=== PATIENT | female | born 1950 | race Caucasian/White ===

== ENCOUNTER → 2016-08-11 | Outpatient (CLI) | payer OTHER ==
[~2016-08-11] MED LIST: ACET-1256 PO; ASPI81TA28 PO; ATV5X PO; CALC-5 PO; CALC500C3 PO; CALCTAB5 PO; CHOL100010 PO; CHOLTAB9 PO; COEN100C15 PO; COEN1CAP46 PO; DIFL0.0519 OPR; ESTCR PV; FLUD0.1T10 PO; GADAVIST IV PRN; LAMO200T PO; LAMO200T38 PO; LEVO75TA5 PO; LORA-741 PO; MISCCAP80 PO; MYS50 PO; NUTR-706 PO; OXYC1TAB3 PO; PHEN15TA PO; PRIM50TA29 PO; PRIM50TA34 PO; RALO1TAB2 PO; RALO60TA12 PO; RANI150T2 PO; TIOT1SPR INH; TIOTCAP INH; ZNTT/150 PO; [UNRECOGNIZED DRUG - CODE] OR; [UNRECOGNIZED DRUG - CODE] PO
--- NOTE | 2016-08-11 15:36 | DIAGNOSTIC IMAGING REPORT ---
ABDOMINAL MRI WITH AND WITHOUT INTRAVENOUS CONTRAST HISTORY: Carcinoid tumor. Assess for pheochromocytoma. TECHNIQUE: Multiplanar multisequence MRI of the abdomen was performed both before and after the intravenous administration of contrast. COMPARISON STUDY: Abdomen and pelvis CT 10/01/2015. Chest abdomen and pelvis CTA 10/18/2013. Normal adrenal glands. No adrenal gland masses. The pancreas, spleen, kidneys, and gallbladder are unremarkable. No retroperitoneal lymphadenopathy. The visualized loops of bowel show no wall thickening or obstruction. No suspicious osseous lesions. The lung bases are clear. There are few scattered hepatic cysts with the largest in the right hepatic lobe measuring 13 mm. Within the central aspect of the liver adjacent to the IVC there is a 1.5 cm T2 hyperintense lesion. This appears to demonstrate discontinuous peripheral nodular enhancement and therefore likely represents a hemangioma. This is stable in size dating back to 2013 study and is therefore likely benign. FINDINGS: 1. Hepatic cysts, unchanged. 2. Stable 1.5 cm T2 hyperintense lesion within the central aspect of the liver which appears to demonstrate discontinuous peripheral nodular enhancement. Therefore, this is consistent with a hemangioma. 3. Normal adrenal glands. IMPRESSION: Electronically signed by: Cr Ruano M.D. 08/11/2016 3:34 PM Dictated Date/Time: 08/11/2016 3:22 PM
== END | disposition home or self-care (01) ==
LOC: C.MRIBC 13:47
PROVIDERS: ATTEND Internal Medicine
DX: D35.00 Benign neoplasm of unspecified adrenal gland (principal)

== ENCOUNTER → 2016-12-07 | Day surgery (SDC) | payer OTHER ==
[2016-11-11 10:51] VITALS: Ht 156.2 cm; Wt 61.8 kg
[~2016-12-07] VITALS: Ht 156.2 cm; Wt 61.8 kg
[~2016-12-07] MED LIST changes: +500ML BSS 0.3ML EPI 1:1000PF IRRIG ONE; +ACETAMINOPHEN 325 MG TAB PO PRN; +AMVISC PLUS 0.8ML SYRINGE INT OCU ONE; +ATROPINE SULFATE 0.1 MG/ML 5ML SYR IV PRN; +BSS FLUSH ONE; -CALCTAB5 PO; +EpINEphrine INJ 1MG/ML AMP 1 MG/ML AMP ONE; -FLUD0.1T10 PO; -GADAVIST IV PRN; +LACTATED RINGER'S 1000ML 500 ML IV SCH; +LIDOCAINE 3.5% OPH GEL PER APPLICATION CHARGE ONE; +LIDOCAINE HCL 1% MPF 2 ML VIAL ONE; +MIDAZOLAM HCL 1 MG/ML 2ML VIAL ONE; +OCUCOAT 1 ML SOLN IO ONE; +ONDANSETRON INJ 2 MG/ML 2 ML VIAL IV PRN; +POVIDONE-IODINE OP SOLN 30 ML BTL ONE; +PROPARACAINE 0.5% OP SOLN PER DROP CHARGE OPR SCH; -TIOTCAP INH; +TOBRAMYCIN/DEXAMETHASONE OPH OINT PER APPLN CHARGE ONE
[2016-12-07] MEDS: PHENYLEPHRINE HCL 2.5% OP SOLN PER DROP CHARGE OPR SCH ×2 (11:43→11:52)
--- NOTE | 2016-12-07 11:43 | History & Physical Bridge - SC ---
H&P Re-Evaluation Bridge Note: I have examined the patient, reviewed the History & Physical and in the interval since the performance of the History & Physical I have noted the following changes of clinical significance: No changes noted
[2016-12-07] MEDS: TROPICAMIDE 1% OP SOLN PER DROP CHARGE OPR SCH ×2 (11:44→11:53)
[2016-12-07] MEDS: CYCLOPENTOLATE HCL 1% OP SOLN PER DROP CHARGE OPR SCH ×2 (11:46→11:54)
[2016-12-07] MEDS: KETOROLAC 0.5% OP SOLN PER DROP CHARGE OPR SCH ×2 (11:48→11:55)
[2016-12-07] MEDS: GATIFLOXACIN OP SOLN PER DROP CHARGE OPR SCH ×2 (11:49→11:59)
--- NOTE | 2016-12-07 12:59 | Discharge Instructions-SurgCtr ---
Discharge Instructions Date of Service Dec 07, 2016. Visit Reason for Visit: Right Cataract Discharge Discharge Diagnosis / Problem: cataract Discharge Goals Goal(s): Improve function Activity Recommendations Activity Limitations: per Instructions/Follow-up section Anesthesia . Post Anesthesia Instructions: If you have had General Anesthesia or IV Sedation: * Do not drive today. * Resume driving when surgeon permits. * Do not make important decisions or sign legal documents today. * Call surgeon for: 1. Temperature elevations greater than 101 degrees F. 2. Uncontrollable pain. 3. Excessive bleeding. 4. Persistent nausea and vomiting. 5. Medication intolerance (nausea, vomiting or rash). * For nausea and vomiting use only clear liquids such as: tea, soda, bouillon until nausea subsides, then gradually increase diet as tolerated. * If you have any concerns or questions, call your surgeon's office. If physician is unavailable and it is an emergency, call 911 or go to the nearest emergency room. . Instructions / Follow-Up Instructions / Follow-Up ACTIVITY RECOMMENDATIONS: * No strenuous lifting, jogging or running for 4 days * No swimming or yard work for 1 week. * Limited bending is permitted, such as putting on shoes. RETURN TO SCHOOL/WORK: No work until seen by physician in office. MEDICATIONS: Resume previous medications unless instructed otherwise by your surgeon. This includes eye drops for glaucoma. Zymaxid/Gatifloxacin (heck cap) - one drop every 2 hours until bedtime Nevanac/Ilevro/Prolensa/Ketorolac (london cap) - one drop every 4 hours until bedtime Prednisolone/Durezol (white/pink cap, SHAKE WELL) - one drop every 2 hours until bedtime Starting tomorrow - all 3 drops every 4 hours until seen in the office Optive drops - as needed for discomfort SPECIAL CARE INSTRUCTIONS: * Wear eyeshield when sleeping, for four nights. * You may wear your own glasses or sunglasses while awake. * You may read or watch TV * You may shower and wash your face, but be gentle around the eye and pat dry. * Blurry vision and mild irritation are normal. * Call office if pain is more severe or vision becomes dark at . FOLLOW UP VISIT: Follow-up with Dr Wetzel tomorrow. Diet Recommendations Home Diet: resume previous diet Procedures Procedures Performed: Right Cataract Phacoemulsification With Intraocular Lens Implant Pending Studies Studies pending at discharge: no Medical Emergencies . Who to Call and When: Medical Emergencies: If at any time you feel your situation is an emergency, please call 911 immediately. . Non-Emergent Contact Non-Emergency issues call your: Wood Scaler . . "Provider Documentation" section prepared by Napoleon Wetzel. .
--- NOTE | 2016-12-07 12:59 | [facility] Operative Report ---
Operative Report Date of Service Dec 07, 2016. Operative Report 1. PREOPERATIVE DIAGNOSIS: Cataract of the right eye. 2. POSTOPERATIVE DIAGNOSIS: Same. 3. PROCEDURE: Phacoemulsification with intraocular lens implantation of the right eye. SURGEON: Dr. Napoleon Wetzel. ANESTHESIA: Topical Lidocaine gel, 1% Non- Preserved intracameral Lidocaine, and monitored intravenous sedation. INDICATIONS FOR THE PROCEDURE: The patient is a 66 - year-old female with a history of cataract of the right eye causing significant visual impairment. The details of the proposed procedure were explained to the patient who asked appropriate questions and following discussion of all risks, benefits and alternatives agreed to have the procedure done. 4. OPERATION AND FINDINGS: DESCRIPTION OF PROCEDURE: After informed consent was obtained, the patient was brought to the Operating Room at the [facility]. The patient was placed in a supine position and then the right eye was prepped and draped in the usual sterile fashion for intraocular surgery. A drop of topical Lidocaine gel was placed in the operative eye. A wire lid speculum was then placed in the fornices. A corneal paracentesis was then created temporally. The Non-Preserved Lidocaine was then instilled into the anterior chamber. The anterior chamber was then pressurized with viscoelastic. A 2.0 mm clear corneal incision was then created temporally. A cystotome was inserted into the anterior chamber and used to create a tear in the anterior lens capsule. This capsular tear was then used to create a small flap and the flap was dragged in a counterclockwise direction in order to create a continuous curvilinear capsulorrhexis. Hydrodissection was accomplished with balanced salt solution. Phacoemulsification of the lens nucleus was then performed in a standard [id number] technique. The phaco time was 19 seconds with an average power of 12 %. The remaining cortical material was removed using irrigation aspiration. The capsular bag was then filled with viscoelastic. A [employer]ch [employer] Lomb MI60L +21.5 diopters lens was then loaded into the injector and injected into the capsular bag. The remaining viscoelastic was removed with the irrigation aspiration handpiece. The wound was hydrated and then checked and found to be watertight. The intraocular pressure was checked and found to be adequate. The wire lid speculum was removed and the patient's face was cleaned and dried. TobraDex ointment was placed in the inferior fornix. The patient was discharged to the Recovery Room having tolerated the procedure well. There were no complications. The patient will be seen tomorrow in the office for follow-up. I attest to the content of the Intraoperative Record and any orders documented therein. Any exceptions are noted below.
[2016-12-07 13:00] VITALS: TEMP 37.2
--- NOTE | 2016-12-07 13:08 | Anesthesia Progress Nt - [facility] ---
Anesthesia Post Op Note Date & Time Dec 07, 2016 at 13:08 Vital Signs Pain Intensity: 0 Vital Signs Past 12 Hours Date Time Temp Pulse Resp B/P (MAP) Pulse Ox O2 Delivery O2 Flow Rate FiO2 12/07/16 11:08 36.9 74 20 94/65 (75) 99 Room Air Notes Mental Status: alert / awake / arousable, participated in evaluation Pt Amnestic to Procedure: Yes Nausea / Vomiting: adequately controlled Pain: adequately controlled Airway Patency, RR, SpO2: stable & adequate BP & HR: stable & adequate Hydration State: stable & adequate Anesthetic Complications: no major complications apparent
[2016-12-07 13:25] VITALS: BP 117/74; PULSE 62; O2SAT 96
== END | disposition home or self-care (01) ==
LOC: X.SURG 10:30
PROVIDERS: ATTEND Ophthalmology
DX: H26.9 Unspecified cataract (principal); G25.0 Essential tremor; E03.4 Atrophy of thyroid (acquired); J43.9 Emphysema, unspecified; E55.9 Vitamin D deficiency, unspecified; F17.200 Nicotine dependence, unspecified, uncomplicated; F32.89 Other specified depressive episodes; K21.9 Gastro-esophageal reflux disease without esophagitis; K22.4 Dyskinesia of esophagus; E27.40 Unspecified adrenocortical insufficiency; I77.810 Thoracic aortic ectasia; Z79.82 Long term (current) use of aspirin; Z79.899 Other long term (current) drug therapy

== ENCOUNTER 2017-01-20 19:43 | Emergency (ER) | payer OTHER ==
[~2017-01-20] VITALS: Ht 154.9 cm; Wt 61.9 kg
[~2017-01-20 19:43] MED LIST changes: -500ML BSS 0.3ML EPI 1:1000PF IRRIG ONE; -ACET-1256 PO; -ACETAMINOPHEN 325 MG TAB PO PRN; -AMVISC PLUS 0.8ML SYRINGE INT OCU ONE; -ASPI81TA28 PO; -ATROPINE SULFATE 0.1 MG/ML 5ML SYR IV PRN; -ATV5X PO; -BSS FLUSH ONE; -CALC500C3 PO; -CHOLTAB9 PO; -COEN100C15 PO; -DIFL0.0519 OPR; -EpINEphrine INJ 1MG/ML AMP 1 MG/ML AMP ONE; -LACTATED RINGER'S 1000ML 500 ML IV SCH; -LAMO200T38 PO; -LEVO75TA5 PO; -LIDOCAINE 3.5% OPH GEL PER APPLICATION CHARGE ONE; -LIDOCAINE HCL 1% MPF 2 ML VIAL ONE; -LORA-741 PO; -MIDAZOLAM HCL 1 MG/ML 2ML VIAL ONE; -MISCCAP80 PO; -MYS50 PO; -NUTR-706 PO; -OCUCOAT 1 ML SOLN IO ONE; -ONDANSETRON INJ 2 MG/ML 2 ML VIAL IV PRN; -OXYC1TAB3 PO; -POVIDONE-IODINE OP SOLN 30 ML BTL ONE; -PRIM50TA34 PO; -PROPARACAINE 0.5% OP SOLN PER DROP CHARGE OPR SCH; -RALO1TAB2 PO; -RANI150T2 PO; -TIOT1SPR INH; -TOBRAMYCIN/DEXAMETHASONE OPH OINT PER APPLN CHARGE ONE; -[UNRECOGNIZED DRUG - CODE] OR; -[UNRECOGNIZED DRUG - CODE] PO
[2017-01-20 19:50] VITALS: TEMP 36.9; Ht 154.9 cm; Wt 61.9 kg
--- NOTE | 2017-01-20 20:33 | DIAGNOSTIC IMAGING REPORT ---
CHEST 2 VIEWS ROUTINE HISTORY: 66 years-old Female acute back pain status post fall COMPARISON: Chest radiographs 10/09/2015 TECHNIQUE: Frontal and lateral views of the chest. FINDINGS: Cardiomediastinal and hilar silhouettes are within normal limits. Eventration of the right hemidiaphragm redemonstrated. There is no pneumothorax, pleural effusion or focal airspace consolidation. There is no overt pulmonary edema. Bones are mildly demineralized. There is mild convex right curvature of the midthoracic spine. Chronic fracture of the posterior lateral left ninth rib is again seen. No acute fracture identified. IMPRESSION: No acute cardiopulmonary process. The above report was generated using voice recognition software. It may contain grammatical, syntax or spelling errors. Electronically signed by: Dar Israel M.D. 01/20/2017 8:32 PM Dictated Date/Time: 01/20/2017 8:30 PM
--- NOTE | 2017-01-20 20:36 | DIAGNOSTIC IMAGING REPORT ---
L-SPINE MIN 4 VIEWS ROUTINE HISTORY: 66 years-old Female acute low back pain status post fall. COMPARISON: CT abdomen and pelvis 10/01/2015 TECHNIQUE: 5 radiographic views of the lumbar spine. FINDINGS: 5 nonrib-bearing lumbar type vertebral segments are present. The bones are mildly demineralized. No acute fracture or malalignment. Moderate posterior intervertebral disc space narrowing at L5-S1 is redemonstrated with moderate facet arthrosis. No significant intervertebral disc space narrowing is otherwise seen. No compression deformity. Moderate stool burden noted. There is atherosclerosis of the aorta. IMPRESSION: 1. No acute fracture or subluxation. 2. Moderate posterior intervertebral disc space narrowing at L5-S1 with moderate facet arthrosis. 3. Moderate stool burden. The above report was generated using voice recognition software. It may contain grammatical, syntax or spelling errors. Electronically signed by: Dar Israel M.D. 01/20/2017 8:34 PM Dictated Date/Time: 01/20/2017 8:32 PM
[2017-01-20] MEDS ORDERED: DIFL0.0519 OPR (20:41)
[2017-01-20] MEDS ORDERED: PHEN15TA PO (20:41)
--- NOTE | 2017-01-20 22:29 | EMERGENCY ROOM VISIT NOTE ---
History Report prepared by Scooby: Best Wilson Under the Supervision of: Dr. Griffin Gutierrez D.O. First contact with patient: 19:44 Stated Complaint: FALL History of Present Illness The patient is a 66 year old female who presents to the Emergency Room with complaints of right lower back pain that began GLASS SANDER BELT. The patient rates her pain moderate in severity. At this time, the patient tripped and fell onto her right side. She has a past medical history of osteoporosis and was told to go get checked if she were to ever fall. She denies any weakness, loss of consciousness , or head trauma. Source of History: patient Onset: GLASS SANDER BELT Position: back (lower) Symptom Intensity: moderate Quality: sharp Timing: constant Modifying Factors (Worsening): other (Touch) Associated Symptoms: No LOC, No headache Review of Systems See HPI for pertinent positives & negatives. A total of 10 systems reviewed and were otherwise negative. Past Medical & Surgical Medical Problems: (1) Bipolar 1 disorder (2) COPD (chronic obstructive pulmonary disease) (3) Dystonia (4) Head ache (5) History of left heart catheterization (LHC) (6) Hypothyroid (7) Major depressive disorder (8) Orthostatic hypotension (9) Osteoporosis (10) PTSD (post-traumatic stress disorder) (11) Tremor (12) UTI (urinary tract infection) (13) Wrist fracture, bilateral Surgical Problems: (1) H/O colonoscopy (2) H/O esophagogastroduodenoscopy (3) History of appendectomy (4) History of dilation and curettage (5) History of laparotomy (6) Tubal ligation status Family History Diabetes mellitus FH: heart disease Hypertension Social History Smoking Status: Former Smoker Alcohol Use: occasionally Drug Use: none Marital Status: single Housing Status: lives alone Occupation Status: unemployed Current/Historical Medications Scheduled Aspirin (Aspirin Ec), 81 MG PO QAM Cholecalciferol (D3-1000), 1,000 UNITS PO DAILY Coenzyme Q10 (Ubidecarenone) (Co Q10), 100 MG PO DAILY Difluprednate (Durezol), 1 DROP OPR DAILY Enteral Nutrition Formula (Ensure), 1 CAN PO TID Estradiol Vaginal (Estrace), 1 APPLN PV [id number] Lamotrigine (Lamictal), 200 MG PO HS Levothyroxine Sodium (Levothyroxine Sodium), 75 MCG PO QAM Phenelzine Sulfate (Phenelzine Sulfate), 30 MG PO QAM Phenelzine Sulfate (Phenelzine Sulfate), 15 MG PO Q AFTERNOON Primidone (Mysoline), 100 MG PO QAM & AFTERNOON Primidone (Mysoline), 150 MG PO HS Probiotic Product (Probiotic), 1 CAP PO BID Raloxifene Hcl (Evista), 60 MG PO HS@2200 Ranitidine (Zantac), 150 MG PO BID Sodium Fluoride (Dental) (Fluoridex), 1 DOSE OR QAM Tiotropium [place] (Spiriva Respimat), 2 PUFF INH DAILY Scheduled PRN Acetaminophen (Tylenol), 1,000 MG PO TID PRN for Pain Calcium Carbonate (Tums), 1 TAB PO DIRECTED PRN for Indigestion Lorazepam (Ativan), 0.5 MG PO QID PRN for Anxiety Allergies Coded Allergies: Cheese (Verified Allergy, Severe, "cva", 01/20/17) TYRAMINE REACTS WITH MEDS. Topiramate (Verified Allergy, Severe, BREATHING PROBLEM & EYE PROBLEMS., ) Tyramine (Verified Allergy, Severe, WAS BELIEVED IT CAUSED A STROKE, ) Adhesives (Verified Allergy, Mild, RASH, BLISTER, 01/20/17) Ephedrine (Verified Allergy, Mild, REACTS WITH ANOTHER MED, 01/20/17) Latex (Verified Allergy, Mild, RASH, BLISTER, 01/20/17) Epinephrine (Verified Adverse Reaction, Unknown, reacts to a med, 01/20/17) Physical Exam Vital Signs Date Time Temp Pulse Resp B/P (MAP) Pulse Ox O2 Delivery O2 Flow Rate FiO2 01/20/17 22:51 72 16 123/70 95 Room Air 01/20/17 21:50 87 20 137/91 96 Room Air 01/20/17 19:50 36.9 89 18 146/95 92 Room Air Physical Exam CONSTITUTIONAL/VITAL SIGNS: Reviewed / noted above. GENERAL: Non-toxic in appearance. INTEGUMENTARY: Warm, dry, and [place]. HEAD: Normocephalic. EYES: without scleral icterus or trauma. ENT/OROPHARYNX: clear and moist. LYMPHADENOPATHY/NECK: Is supple without lymphadenopathy or meningismus. RESPIRATORY: Lungs clear and equal. CARDIOVASCULAR: Regular rate and rhythm. GI/ABDOMEN: Soft and nontender. No organomegaly or pulsatile mass. No rebound or guarding. Normal bowel sounds. EXTREMITIES: Warm and well perfused. BACK: No CVA tenderness. Tenderness to palpation to the right lower back musculature. NEUROLOGICAL: Intact without focal deficits. PSYCHIATRIC: normal affect. MUSCULOSKELETAL: Normally developed with good muscle tone. Medical Decision & Procedures ER Provider Diagnostic Interpretation: Radiology results as stated below per my review and radiologist interpretation: L-SPINE MIN 4 VIEWS ROUTINE HISTORY: 66 years-old Female acute low back pain status post fall. COMPARISON: CT abdomen and pelvis 10/01/2015 TECHNIQUE: 5 radiographic views of the lumbar spine. FINDINGS: 5 nonrib-bearing lumbar type vertebral segments are present. The bones are mildly demineralized. No acute fracture or malalignment. Moderate posterior intervertebral disc space narrowing at L5-S1 is redemonstrated with moderate facet arthrosis. No significant intervertebral disc space narrowing is otherwise seen. No compression deformity. Moderate stool burden noted. There is atherosclerosis of the aorta. IMPRESSION: 1. No acute fracture or subluxation. 2. Moderate posterior intervertebral disc space narrowing at L5-S1 with moderate facet arthrosis. 3. Moderate stool burden. The above report was generated using voice recognition software. It may contain grammatical, syntax or spelling errors. Electronically signed by: Dar Israel M.D. 01/20/2017 8:34 PM Dictated Date/Time: 01/20/2017 8:32 PM CHEST 2 VIEWS ROUTINE HISTORY: 66 years-old Female acute back pain status post fall COMPARISON: Chest radiographs 10/09/2015 TECHNIQUE: Frontal and lateral views of the chest. FINDINGS: Cardiomediastinal and hilar silhouettes are within normal limits. Eventration of the right hemidiaphragm redemonstrated. There is no pneumothorax, pleural effusion or focal airspace consolidation. There is no overt pulmonary edema. Bones are mildly demineralized. There is mild convex right curvature of the midthoracic spine. Chronic fracture of the posterior lateral left ninth rib is again seen. No acute fracture identified. IMPRESSION: No acute cardiopulmonary process. The above report was generated using voice recognition software. It may contain grammatical, syntax or spelling errors. Electronically signed by: Dar Israel M.D. 01/20/2017 8:32 PM Dictated Date/Time: 01/20/2017 8:30 PM ED Course 1944: Previous medical records were reviewed. The patient was evaluated in room A10. A complete history and physical examination was performed. 2230: On reevaluation, the patient is resting. I discussed the results and findings with the patient. She verbalized agreement of the treatment plan. She was discharged home. Medical Decision Differentials include: Close head injury, intracranial bleed, facial trauma, cervical spine trauma, chest and thoracic trauma, abdominal and intra-abdominal trauma, spine neurologic trauma, and extremity trauma. This is a 66-year-old female who presents to the ED with a chief complaint of a fall. The patient reports that she has osteoporosis and has been told that she should have x-rays if she falls to make sure she did not break anything. She complains of some right low back pain. She states that she tripped in the hallway and this is what caused her fall. Her exam reveals some mild tenderness in the right low back region. X-rays of the chest and back did not show any abnormalities with regards to fractures or acute injury. The patient was told the results. She is felt to be stable for discharge. She did take some of her own Tylenol for pain. Medication Reconcilliation Current Medication List: was personally reviewed by me Blood Pressure Screening Patient's blood pressure: Normal blood pressure Blood pressure disposition: Did not require urgent referral Impression Primary Impression: Fall Additional Impression: Back pain Scribe Attestation The scribe's documentation has been prepared under my direction and personally reviewed by me in its entirety. I confirm that the note above accurately reflects all work, treatment, procedures, and medical decision making performed by me. Departure Information Dispostion Home / Self-Care Referrals López Edward MD (PCP) Forms HOME CARE DOCUMENTATION FORM, IMPORTANT VISIT INFORMATION Additional Instructions X-rays did not show any fractures. Take Tylenol as needed for discomfort. Problem Qualifiers
[2017-01-20 22:51] VITALS: BP 123/70; PULSE 72; O2SAT 95
[2017-02-03] MEDS ORDERED: ASPI81TA28 PO (05:08)
[2017-02-03] MEDS ORDERED: ACET-1256 PO (10:50)
[2017-02-03] MEDS ORDERED: MISCCAP80 PO (10:50)
[2017-02-03] MEDS ORDERED: [UNRECOGNIZED DRUG - CODE] OR (10:51)
[2017-02-03] MEDS ORDERED: LEVO75TA5 PO (14:46)
== END 2017-01-20 22:55 | disposition home or self-care (01) ==
LOC: EDBD 19:43 → C.EDC 19:44
DX: M54.5 Low back pain (principal); W18.09XA Striking against other object with subsequent fall, initial encounter; M81.0 Age-related osteoporosis without current pathological fracture; F31.9 Bipolar disorder, unspecified; J44.9 Chronic obstructive pulmonary disease, unspecified; E03.9 Hypothyroidism, unspecified; F43.10 Post-traumatic stress disorder, unspecified; Z87.440 Personal history of urinary (tract) infections; Z98.51 Tubal ligation status; Z83.3 Family history of diabetes mellitus; Z82.49 Family history of ischemic heart disease and other diseases of the circulatory system; Z87.891 Personal history of nicotine dependence; Z79.82 Long term (current) use of aspirin; Z79.899 Other long term (current) drug therapy

== ENCOUNTER → 2017-01-25 | Outpatient (CLI) | payer OTHER ==
[~2017-01-25] MED LIST changes: +ACET-1256 PO; +ASPI81TA28 PO; +ATV5X PO; -CALC-5 PO; +CALC500C3 PO; -CHOL100010 PO; +CHOLTAB9 PO; +COEN100C15 PO; -COEN1CAP46 PO; +DIFL0.0519 OPR; +LAMO200T38 PO; +LEVO75TA5 PO; +LORA-741 PO; +MISCCAP80 PO; +MYS50 PO; +NUTR-706 PO; +OXYC1TAB3 PO; +PRIM50TA34 PO; +RALO1TAB2 PO; +RANI150T2 PO; +TIOT1SPR INH; +[UNRECOGNIZED DRUG - CODE] OR; +[UNRECOGNIZED DRUG - CODE] PO
--- NOTE | 2017-01-25 15:01 | PULMONARY FUNCTION TEST ---
These standards are based off ATS criteria. SPIROMETRY: Mild obstructive ventilatory disease with an FEV1 of 96%. BRONCHODILATOR: No significant reversibility noted. LUNG VOLUMES: Within normal limits. DIFFUSION CAPACITY: Within normal limits. INTERPRETATION: Mild obstructive ventilatory disease.
== END | disposition home or self-care (01) ==
LOC: C.RC 09:54
PROVIDERS: ATTEND Physician Assistant
DX: J44.9 Chronic obstructive pulmonary disease, unspecified (principal)

== ENCOUNTER 2017-02-03 16:02 | Emergency (ER) | payer OTHER ==
[~2017-02-03] VITALS: Ht 154.9 cm; Wt 65.5 kg
[~2017-02-03 16:02] MED LIST changes: -ATV5X PO; -CALC500C3 PO; -CHOLTAB9 PO; -COEN100C15 PO; -ESTCR PV; -LAMO200T38 PO; -LORA-741 PO; -MYS50 PO; -NUTR-706 PO; -OXYC1TAB3 PO; -PRIM50TA29 PO; -PRIM50TA34 PO; -RALO1TAB2 PO; -RANI150T2 PO; -TIOT1SPR INH; -[UNRECOGNIZED DRUG - CODE] PO
[2017-02-03 16:05] VITALS: TEMP 36.7; Ht 154.9 cm; Wt 65.5 kg
--- NOTE | 2017-02-03 17:14 | DIAGNOSTIC IMAGING REPORT ---
CT LUMBAR SPINE WITHOUT CT DOSE: 546.79 mGy.cm CLINICAL HISTORY: Low back pain status post trauma TECHNIQUE: Helical images were acquired in transverse plane. Reformatted sagittal and coronal images were reviewed. A dose lowering technique was utilized adhering to the principles of ALARA. CONTRAST: No contrast was administered COMPARISON STUDY: Conventional radiographic study dated 01/20/2017 FINDINGS: L1-2 level: There is a mild acute/subacute superior endplate L1 compression fracture with 4 mm of retropulsion. There is no evidence of disc bulge or focal herniation. There is no spinal or foraminal stenosis. L2-3 level: There is no evidence of significant disc bulge or focal herniation. There is no evidence of spinal or foraminal stenosis. L3-4 level: There is a mild circumferential disc bulge. There is mild to moderate spinal stenosis. There is no significant foraminal narrowing L4-5 level: There is a mild circumferential disc bulge. There is facet arthropathy. There is moderate spinal stenosis. L5-S1 level: There is no evidence of significant disc bulge or focal herniation. There is no evidence of spinal or foraminal stenosis. IMPRESSION: 1. Mild acute/subacute superior endplate L1 compression fracture with 4 mm of retropulsion 2. Multilevel spondylitic changes with mild to moderate spinal stenosis at the L3-4 level, and moderate spinal stenosis at the L4-5 level. Electronically signed by: Rajinder Cox M.D. 02/03/2017 5:12 PM Dictated Date/Time: 02/03/2017 5:08 PM
[2017-02-03] MEDS ORDERED: RANI150T2 PO (17:18)
[2017-02-03] MEDS ORDERED: MYS50 PO (17:18)
[2017-02-03] MEDS ORDERED: [UNRECOGNIZED DRUG - CODE] PO (17:18)
[2017-02-03] MEDS ORDERED: LAMO200T38 PO (17:18)
[2017-02-03] MEDS ORDERED: ATV5X PO (17:18)
[2017-02-03] MEDS ORDERED: RALO1TAB2 PO (17:18)
--- NOTE | 2017-02-03 17:38 | EMERGENCY ROOM VISIT NOTE ---
History First contact with patient: 16:05 Chief Complaint: BACK PAIN Stated Complaint: FALL/ BACK PAIN History of Present Illness The patient is a 66 year old female who presents to the Emergency Room with complaints of low back pain after a fall which occurred approximately 2 weeks ago. She states the pain is located in the right lower back. She was seen here initially and had x-rays of the back which were negative. She has had persistent pain and tingling in her lower extremities. She does state that she has "an undiagnosed neurological condition" which causes chronic tingling in the lower extremities. She has been seeing her primary care provider and reports that they are in the process of ordering an MRI to rule out a compression fracture. The patient does have a history of osteoporosis. She denies numbness, weakness, bowel or bladder incontinence. She reports increased pain with movement. She rates her discomfort 6/10. She's been taking [id number] medications without relief. Review of Systems A complete 10 point review of systems was reviewed with the patient with pertinent positives and negatives as per history of present illness. All else were negative. Past Medical/Surgical History Medical Problems: (1) Bipolar 1 disorder (2) COPD (chronic obstructive pulmonary disease) (3) Dystonia (4) Head ache (5) History of left heart catheterization (LHC) (6) Hypothyroid (7) Major depressive disorder (8) Orthostatic hypotension (9) Osteoporosis (10) PTSD (post-traumatic stress disorder) (11) Tremor (12) UTI (urinary tract infection) (13) Wrist fracture, bilateral Surgical Problems: (1) H/O colonoscopy (2) H/O esophagogastroduodenoscopy (3) History of appendectomy (4) History of dilation and curettage (5) History of laparotomy (6) Tubal ligation status Family History Diabetes mellitus FH: heart disease Hypertension Social History Smoking Status: Former Smoker Alcohol Use: occasionally Drug Use: none Marital Status: single Housing Status: lives alone Occupation Status: unemployed Current/Historical Medications Scheduled Aspirin (Aspirin Ec), 81 MG PO QAM Cholecalciferol (D3-1000), 1,000 INTER.UNIT PO DAILY Coenzyme Q10 (Ubidecarenone) (Co Q10), 200 MG PO DAILY Enteral Nutrition Formula (Ensure), 1 CAN PO TID Estradiol Vaginal (Estrace), 1 APPLN PV [id number] Lamotrigine (Lamictal), 200 MG PO HS Levothyroxine Sodium (Levothyroxine Sodium), 75 MCG PO QAM Phenelzine Sulfate (Phenelzine Sulfate), 15-30 MG PO Q AFTERNOON Phenelzine Sulfate (Phenelzine Sulfate), 30 MG PO QAM Primidone (Mysoline), 100 MG PO AFTERNOON Primidone (Mysoline), 150 MG PO HS Primidone (Primidone), 100 MG PO QAM Probiotic Product (Probiotic), 1 CAP PO BID Raloxifene HCl (Raloxifene Hydrochloride), 60 MG PO HS Ranitidine HCl (Ranitidine HCl), 150 MG PO BID Sodium Fluoride (Dental) (Fluoridex), 1 APPLN OR QAM Tiotropium [place] (Spiriva Respimat), 2 PUFFS INH DAILY Scheduled PRN Acetaminophen (Tylenol), 1,000 MG PO TID PRN for Pain Calcium Carbonate (Tums), 500 MG PO UD PRN for Indigestion Lorazepam (Ativan), 0.5 MG PO DAILY PRN for Anxiety Lorazepam (Lorazepam), 1-1.5 MG PO HS PRN for Anxiety Oxycodone Ir (Roxicodone Ir), 1 TAB PO Q4H PRN for Pain Physical Exam Vital Signs Date Time Temp Pulse Resp B/P (MAP) Pulse Ox O2 Delivery O2 Flow Rate FiO2 02/03/17 18:42 73 20 139/62 95 02/03/17 17:57 69 18 138/63 95 Room Air 02/03/17 16:05 36.7 78 18 125/86 96 Room Air Physical Exam VITALS: Vitals are noted on the nurse's note and reviewed by myself. Vital signs stable. GENERAL: This is a 66-year-old female, in no acute distress, nondiaphoretic, well-developed well-nourished. SKIN: The skin was without rashes, erythema, edema, or bruising. NECK: Cervical spine is nontender. HEART: Regular rate and rhythm without murmurs gallops or rubs. LUNGS: Clear to auscultation bilaterally without wheezes, rales or rhonchi. ABDOMEN: Soft, nontender to palpation. MUSCULOSKELETAL: Mild tenderness over the lumbar spine and right lumbar region. Full range of motion of bilateral lower extremities. Strength 5/5 in bilateral lower extremities. NEURO: Patient was alert and oriented to person place and time. Normal sensation to light and sharp touch. Patellar reflexes 2+ throughout. No focal neurological deficits. Medical Decision & Procedures ER Provider Diagnostic Interpretation: CT LUMBAR SPINE WITHOUT FINDINGS: L1-2 level: There is a mild acute/subacute superior endplate L1 compression fracture with 4 mm of retropulsion. There is no evidence of disc bulge or focal herniation. There is no spinal or foraminal stenosis. L2-3 level: There is no evidence of significant disc bulge or focal herniation. There is no evidence of spinal or foraminal stenosis. L3-4 level: There is a mild circumferential disc bulge. There is mild to moderate spinal stenosis. There is no significant foraminal narrowing L4-5 level: There is a mild circumferential disc bulge. There is facet arthropathy. There is moderate spinal stenosis. L5-S1 level: There is no evidence of significant disc bulge or focal herniation. There is no evidence of spinal or foraminal stenosis. IMPRESSION: 1. Mild acute/subacute superior endplate L1 compression fracture with 4 mm of retropulsion 2. Multilevel spondylitic changes with mild to moderate spinal stenosis at the L3-4 level, and moderate spinal stenosis at the L4-5 level. ED Course The patient was evaluated as above. CT of the lumbar spine was performed and read by radiology as above. Patient was reevaluated and findings were discussed. Case was discussed with Dr. Zhang of orthopedic spine. He states he can see the patient in the office tomorrow. []Discharge instructions were reviewed with the patient. The patient verbalized understanding of my assessment and treatment plan and was discharged home in good condition. Medical Decision Differential diagnosis includes compression fracture, vertebral body fracture, herniated disc, contusion, among others. The patient is a 66-year-old female who presents today complaining of pain in the back after a fall 2 weeks ago. Her neuro exam is within normal limits. Strength in bilateral legs is 5/5. A CT was obtained to rule out occult fracture and did show a mild superior endplate L1 compression fracture with 4 mm of retropulsion. Case was discussed with Dr. Zhang of orthopedic spine surgery, who felt that the patient could be treated with analgesics and follow- up in the office. Findings were discussed with the patient. She was prescribed OxyIR for pain. She was instructed on worsening symptoms which would necessitate return to the emergency department. Based on the patient's presentation and work up, I feel the patient is stable for outpatient treatment. The patient was educated to return to the emergency department for any worsening of their current condition or new/concerning symptoms. She will follow up with her PCP and ortho spine. The patient was independently evaluated by Dr. Malik, ED attending physician , who agreed with my assessment and treatment plan. Medication Reconcilliation Current Medication List: was personally reviewed by me Blood Pressure Screening Patient's blood pressure: Normal blood pressure Impression Primary Impression: Lumbar compression fracture Departure Information Dispostion Home / Self-Care Condition GOOD Prescriptions Oxycodone Ir (Roxicodone Ir) 5 Mg Tab 1 TAB PO Q4H Y for Pain, #12 TAB For Initial Treatment Prov: Carmen Figueroa PA-C 02/03/17 Referrals López Edward MD (PCP) Max Zhang, DO Patient Instructions [facility] Additional Instructions You have been treated in the Emergency Department for Back Pain. Your CT showed a compression fracture. You will need to follow-up with orthopedics, Dr. Zhang. Call his office tomorrow to schedule a follow-up appointment. You have been prescribed Oxy IR to be used for pain control. This is a narcotic medication. You cannot drive or consume alcohol while on this medicine. This medicine should only be used for pain that cannot be controlled with over-the- counter pain medicines. For pain control, you can use the following osrc-dea-eygtgey medicines (if >12 yo): - Regular strength (325mg/tab) Tylenol (acetaminophen) 2 tabs every 4-6 hours as needed. Do not exceed 12 tablets in a 24 hour period. Avoid taking more than 4 grams (4000 mg) of Tylenol per day. This includes any other sources of acetaminophen you may take on a regular basis. - Regular strength (200 mg/tab) Advil (ibuprofen) 1-2 tabs every 4-6 hours as needed. Do not exceed a dose of 3200 mg per day. You should also follow-up with your primary care provider regarding today's visit. Return to the Emergency Department if your current symptoms worsen despite treatment course outlined above, or if you develop any of the following symptoms : intractable pain despite aforementioned treatment course, loss of control of your bowel or bladder, numbness or tingling in your groin, or development of a fever. Problem Qualifiers Primary Impression: Lumbar compression fracture Encounter type: initial encounter Lumbar vertebra fracture level: L1 Fracture type: closed Qualified Codes: S32.010A - Wedge compression fracture of first lumbar vertebra, initial encounter for closed fracture
[2017-02-03] MEDS ORDERED: OXYC1TAB3 PO (18:12)
--- NOTE | 2017-02-03 18:18 | EMERGENCY ROOM VISIT NOTE ---
ED Visit Note First contact with patient: 16:05 Pt seen and examined at bedside. PA discussed CT findings with Dr. Zhang. Pt agreeable with plan. No sx here to suggest cauda equina acutely. Pt otw well appearing, no trauma.
[2017-02-03 18:42] VITALS: BP 139/62; PULSE 73; O2SAT 95
[2017-02-03] MEDS ORDERED: LORA-741 PO (20:37)
[2017-02-03] MEDS ORDERED: PHEN15TA PO (20:41)
[2017-02-03] MEDS ORDERED: CALC500C3 PO (20:41)
[2017-02-03] MEDS ORDERED: PRIM50TA29 PO (20:41)
[2017-02-03] MEDS ORDERED: PRIM50TA34 PO (20:41)
[2017-02-03] MEDS ORDERED: ESTCR PV (20:41)
[2017-02-03] MEDS ORDERED: COEN100C15 PO (20:41)
[2017-02-03] MEDS ORDERED: CHOLTAB9 PO (20:41)
[2017-02-03] MEDS ORDERED: NUTR-706 PO (20:41)
[2017-02-03] MEDS ORDERED: TIOT1SPR INH (22:02)
== END 2017-02-03 18:43 | disposition home or self-care (01) ==
LOC: EDBD 16:02 → C.EDA 16:04
DX: S32.010A Wedge compression fracture of first lumbar vertebra, initial encounter for closed fracture (principal); W19.XXXA Unspecified fall, initial encounter; F31.9 Bipolar disorder, unspecified; J44.9 Chronic obstructive pulmonary disease, unspecified; G24.9 Dystonia, unspecified; E03.9 Hypothyroidism, unspecified; F32.9 Major depressive disorder, single episode, unspecified; I95.9 Hypotension, unspecified; F43.10 Post-traumatic stress disorder, unspecified; Z83.3 Family history of diabetes mellitus; Z82.49 Family history of ischemic heart disease and other diseases of the circulatory system; Z87.891 Personal history of nicotine dependence; Z79.82 Long term (current) use of aspirin

== ENCOUNTER → 2017-03-02 | Outpatient (CLI) | payer OTHER ==
[~2017-03-02] MED LIST changes: +ATV5X PO; +CALC500C3 PO; +CHOLTAB9 PO; +COEN100C15 PO; -DIFL0.0519 OPR; +ESTCR PV; -LAMO200T PO; +LAMO200T38 PO; +LORA-741 PO; +MYS50 PO; +NUTR-706 PO; +OXYC1TAB3 PO; +PRIM50TA29 PO; +PRIM50TA34 PO; +RALO1TAB2 PO; -RALO60TA12 PO; +RANI150T2 PO; +TIOT1SPR INH; -ZNTT/150 PO; +[UNRECOGNIZED DRUG - CODE] PO
--- NOTE | 2017-03-03 05:58 | PAP/PSG TECHNICIAN REPORT ---
[facility] Journeyman Carpenter Polysomnogram Report Study name: None Report date: 03/03/2017 Study date: 03/02/2017 Referring Physician: Alek Ward M.D. Name: CARA PATTERSON Interpreting Physician: Max Cardona M.D. Date of : 1950 Journeyman Carpenter: Kiya Trujillo RPSGT. Sex: Female Age: 66 StudyType: PSG Weight: 136 lbs Height: 66 years, Height 5' 1.25" Neck Circum:13in. BMI: 25.48 Medications: Evista 60mg, Levoxyl 75mcg, Mysoline 50mg, Calcium Carbonate 600mg, COQ10 100mg, Estrace vaginal cream, Zantac 150mg, Spiriva Respimat 2.5mcg/act, Ativan 0.5mg, Tylenol, Ensure, ASA 81mg, Phenelzine Sulfate 15mg, Lamictal 200mg, Vit D 1000unit Patient History Study started on room air with no ETCO2 monitoring in room #8. 66 yr old female here tonight for a possible split psg. She complains of loud snoring, waking up frequently to urinate (1 to 3 times a night), and non-refreshing sleep. She has been diagnosed with a movement disorder, bipolar disorder and depression. She was very shaky all night, her entire body. Her ESS=10/24. neck circ=13inches. Parameters Monitored NPSG: E1-M2, E2-M1, Fp1-M2, Fp2-M1, F3-M2, F4-M2, F4-M1, C3-M2, C4-M2, C4-M1, O1-M2, O2-M2, O2-M1, T3-M2, T4-M1, P3-M2, P4-M1, CHIN1, CHIN2, HR, EKG, Legs, PFLOW, SNOR, FLOW, CFLOW, Tidal Volume, THOR, ABDO, SpO2, PLTH, CPRESS, ETCO2 Wave, ETCO2, pH Sleep Architecture Sleep Stages Time at Lights Off 10:27:33 PM STAGES Time (min.) TST (%) Time at Lights On 5:37:33 AM Wake 93.0 -- Total Recording Time (TRT) 430.00 min. N1 18.0 5 Total Sleep Period (TSP) 394.0 min. N2 236.0 70 Total Sleep Time (TST) 337.0min. N3 83.0 25 Awake Time 93.0 min. REM 0.0 0 Wake after Sleep Onset 57.0 min. Sleep Efficiency (SE) 78 % Sleep Onset Latency (CHRIS) 36.0 min. Number of Stage 1 Shifts None Awakenings 6 Stage Changes 36 Number of REM periods N/A REM 0.0 0 REM Latency NONE min. NREM 337.0 100 Body Position Analysis Supine Right Left Side Prone Vertical Total Sleep Time (min.) 238.2 169.5 0.0 169.50 0.0 0.0 Total Sleep Time (%) 50% 50% 0% 50 0% N/A% Total Sleep Time REM (min.) 0.0 0.0 0.0 None 0.0 0.0 Total Sleep Time NREM (min.) 167.5 169.5 0.0 None 0.0 0.0 Intermittent Wake (min.) 70.7 22.3 0.0 None 0.0 0.0 Total Sleep Period (%) 51% None None None None None Arousals Myoclonus (PLM) * Events Count Index Events Count Index Spontaneous 3 1 Events Awake (PLMW) 116 74.8 Respiratory 2 0.4 Events Asleep w/ Arousal (PLMA) 15 2.7 PLM 14 3 Events Asleep w/o Arousal (PLMS) 232 41.3 Snoring 4 1 Total Asleep 247 44.0 Total 23 4 Total 363 51 Respiratory Analysis * CA OA MA CH H RERA Total Count 0 1 0 0 25 0 26 Index 0.0 0.2 0.0 0 4.5 0 4.6 Mean Duration 0.0 46.3 0.0 0.00 19.0 0.0 20.0 Longest Duration 0.0 46.3 0.0 0.00 0.0 0.0 46.3 Respiratory Event Summary Total Supine ~Supine Right Left Prone REM NREM Apneas Count 1 1 0 0 N/A N/A N/A 1 Index 0.2 0 0 0.0 N/A N/A N/A 0 Hypopneas (4% Desat) Count 25 22 3 3 N/A N/A N/A 25 Index 4.5 7.9 1 1.1 N/A N/A N/A 4.5 Apneas & All Hypopneas Count 26 23 3 3 N/A N/A N/A 26 Index 4.6 8 1 1 N/A N/A N/A 4.6 Respiratory Events (Micro Computer Specialist+All Hyp+RERA) Count 26 23 3 3 N/A N/A N/A 26 Index 4.6 8 1 1.1 N/A N/A N/A 4.6 Respiratory Related Arousal Count 2 23 0 0 N/A N/A N/A 2 Index 0.4 1 0 0 N/A N/A N/A 0 Snoring Analysis Supine Right Left Prone REM NREM Total Snore duration 3.6 min Snores count 68 39 N/A N/A N/A 107 107 Snore mean duration 2.0 Sec Snores index 24 14 N/A N/A N/A 19.1 19.1 TST with snoring (%) 1.1% Desaturation Event Summary: Minimum %SpO2 Event Count Mean/Min/Max Duration(sec.) Desaturation Index % Time In Bed > 90 62 22.5 / 6.8 / 59.3 23.0 39.4 86 - 90 30 20.1 / 7.3 / 54.3 7.6 57.9 81 - 85 3 12.2 / 10.0 / 14.8 16.3 2.7 76 - 80 1 10.3 / 10.3 / 10.3 351.2 0.0 71 - 75 0 N/A 0.0 0.0 66 - 70 0 N/A 0.0 0.0 61 - 65 0 N/A 0.0 0.0 56 - 60 0 N/A 0.0 0.0 51 - 55 0 N/A 0.0 0.0 < 50 0 N/A 0.0 0.0 Total REM NREM Awake <50% 0.0 min. 0.0 min. 0.0 min. 0.0 min. 51 - 60% 0.0 min. 0.0 min. 0.0 min. 0.0 min. 61 - 70% 0.0 min. 0.0 min. 0.0 min. 0.0 min. 71 - 80% 0.2 min. 0.0 min. 0.0 min. 0.2 min. 81 - 90% 248.8 min. 0.0 min. 230.4 min. 18.4 min. 91 - 100% 162.0 min. 0.0 min. 103.1 min. 58.9 min. Average 90 0 89 92 Minimum SpO2 78 N/A 81 78 Desaturation Event Index 11.3 0.0 5.9 31.0 # Desat. Events below 89% 47 N/A 28 19 Time(%) with Saturation below 89% 30.9 0.0 28.9 1.9 Time(min.) with Saturation below 89% 126.8 0.0 118.9 7.8 Time (mins) REM (mins) NREM (mins) % of TST SpO2 Below 90% 32 N/A N32 48.5 SpO2 Below 88% 10 0 0 23 Heart Rate Analysis Min (bpm) Max (bpm) Average (bpm) Awake 30 127 67 NREM 61 75 66 REM N/A N/A N/A Overall 61 75 66 Supplemental O2 Values Minimum O2 level: None Value Start Time End Time Journeyman Carpenter Comments Mr. Patterson slept in the right and supine positions. No cardiac arrhythmia noted. Some leg movements were noted. No bruxism noted. Snoring was noted and scored as a 1 on a scale of 1 through 5. (0=no snoring, 5=snoring loud enough to be heard through a closed door or down the [address] way) She awoke to use the restroom 1 time during the night. She stated that she did not sleep as well as when she is at home. Her body did not shake when she was asleep. The final report will be interpreted and signed by a sleep physician. The completed physician report will then be placed in the patient medical record. Therapy (cm H2O) 0 TIB (min.) 430.0 TST (min.) 337.0 Sleep Onset (min.) 36.0 REM Onset From Sleep (min.) NONE Sleep Efficiency % 78 Wakefulness (%) 22 Wakefulness (min.) 93.0 NREM 1 (%) 5 NREM 1 (min.) 18.0 NREM 2 (%) 70 NREM 2 (min.) 236.0 NREM 3 (%) 25 NREM 3 (min.) 83.0 REM (%) 0 REM (min.) 0.0 # Arousals 23 Arousal Index 4 # Snore 107 Snore Index 19.1 AHI 4.6 AHI Supine 8 AHI Non-Supine 1 NREM AHI 4.6 REM AHI N/A RDI 4.6 # Obstructive Apnea 1 # Central Apnea 0 # Mixed Apnea 0 # Hypopneas 25 RERAs 0 Total Respiratory Events 50 Time Below SpO2 89% (min.) 118.9 Mean NREM SpO2 (%) 89 Mean REM SpO2 (%) N/A Mean Sleep SpO2 (%) 89 Min NREM SpO2 (%) 81 Min REM SpO2 (%) N/A Position Supine (min.) 238.2 Position Non-supine (min.) 169.5 LM Index Sleep 44.0 LM Index NREM 44.0 LM Index REM N/A Mean Heart Rate (bpm) 66 Min Heart Rate (bpm) 61
--- NOTE | 2017-03-04 13:01 | POLYSOMNOGRAPH REPORT ---
CLINICAL DATA: A 66-year-old female with BMI of [address] Sergei Ward and Dr. Edward for complaints of loud snoring, frequent awakenings, and non-refreshing sleep. She has a movement disorder, bipolar disorder and depression. Her [place] sleepiness score was elevated at 10/24. SLEEP ARCHITECTURE: Total sleep period was 394 minutes. Total sleep time was 337 minutes, all non-REM sleep. Sleep onset latency was delayed at 36 minutes. REM was not achieved. Sleep efficiency was 78%. Wake after sleep onset was 57 minutes. Sleep consisted of stage N1 5%, stage N2 70%, and stage N3 25%. AROUSAL DATA: Twenty three arousals were recorded for an index of 4 per hour, 14 were due to PLMs events. PERIODIC LIMB MOVEMENTS DATA: Moderately elevated limb movements during sleep were noted. There were 247 limb movements during sleep noted for an index of 44 per hour with arousal index of 2.7 per hour. RESPIRATORY DATA: There was no evidence of clinically significant sleep apnea seen. The AHI was 4.6. There was 1 obstructive apneic episode, 46.3 seconds in duration. There were 25 hypopneic episodes with the mean duration of 19 seconds. OXIMETRY DATA: Mild nocturnal hypoxemia was seen. Oxygen britta was 81%. Mean saturation was 90%. Time below 88% was 10 minutes. ELECTROCARDIOGRAM: Heart ranged from 61-75 beats per minute. No arrhythmias were noted. WELDER HELPER'S COMMENTS: The patient slept in the right and supine positions. Leg movements were noted throughout the night. Snoring was moderate, rated 1 on a scale of 1-5. Although she was shaking while awake, her body did not shake when she was asleep. IMPRESSION: 1. No evidence of clinically significant sleep apnea/hypopnea. 2. Mild nocturnal hypoxemia. 3. Moderately elevated limb movements during sleep. RECOMMENDATIONS: The patient should continue to practice good sleep hygiene. If the patient's symptoms are consistent with RLS/PLMD, workup and evaluation for causes of RLS/PLMD and treatment could be considered. Clinical correlation is needed. [facility]
== END | disposition home or self-care (01) ==
LOC: C.NEUR 20:00
PROVIDERS: ATTEND Family Medicine
DX: G47.10 Hypersomnia, unspecified (principal); R06.83 Snoring

== ENCOUNTER 2020-01-17 21:57 | Inpatient (IN) ==
--- NOTE | 2020-01-17 22:37 | Emergency Department Note ---
History of Present Illness General Chief complaint: Illness Stated complaint: SOB,COUGH,FEVER History of Present Illness Maximum Pain Intensity: 1 This 69 yo presents to the ER complaining of cough, congestion, shortness of breath, loss of taste, loss of smell feeling fatigued for the past week. Patient had negative COVID test on the of this month. This was done for preop for endoscopy that was not done. Location: Generalized Quality: Fatigue Severity: Moderate Duration: 1 week Timing: Started a week ago Context: Symptoms got worse and patient came in Modifying factors: better with rest; worse with activity Patient states she feels rundown. She also has been feeling nauseous and has been having loose stool. No recent antibiotics. No recent steroids. Patient denies chest pain, sore throat, abdominal pain, vomiting, urinary symptoms. She chronically wears 2 L of oxygen. Patient denies recent travel or sick contacts. Patient states she has not left her home and her son brings her her groceries. Home Medications Home Medications Medication Instructions Recorded Confirmed Type clonazepam 0.5 mg tablet 1.5 mg PO HS #60 tab 02/05/19 01/17/20 History coenzyme Q10 100 mg capsule 200 mg PO HS cap 02/05/19 01/17/20 History estradiol 0.01 % PV UD gm 02/05/19 01/17/20 History lamotrigine 200 mg tablet 200 mg PO HS tab 02/05/19 01/17/20 History levothyroxine 75 mcg tablet 75 mcg PO QAM #90 tab 02/05/19 01/17/20 History primidone 50 mg tablet 100 mg PO BIDM tab 02/05/19 01/17/20 History Lactobacillus 1 cap PO HS cap 02/07/19 01/17/20 History acidophilus-Bifidobac.animalis 2.5 billion cell capsule polyethylene glycol 3350 17 8.5 gm PO DAILY PRN 02/07/19 01/17/20 History gram/dose oral powder phenelzine 30 mg PO BID 03/19/19 01/17/20 History primidone 150 mg PO HS 03/19/19 01/17/20 History raloxifene 60 mg PO HS 03/19/19 01/17/20 History nystatin 5 ml BUCCAL QID PRN 04/11/19 01/17/20 History clonazepam 0.5 mg PO 1500 05/19/19 01/17/20 History tiotropium bromide [Spiriva 2 puff INHALATION QAM 05/19/19 01/17/20 History Respimat] calcium carbonate-vitamin D3 1 tab PO HS 10/10/19 01/17/20 History [Calcium 600 + D(3)] food supplemt, lactose-reduced 1 ea PO DAILY 01/09/20 01/17/20 History [Ensure] furosemide 20 mg PO MOWEFR 01/09/20 01/17/20 History famotidine 20 mg PO BID 01/17/20 01/17/20 History triamcinolone acetonide 1 applic TOPICAL BID 01/17/20 01/17/20 History Allergies Allergy/AdvReac Type Severity Reaction Status Date / Time cheese Allergy Severe anything Verified 01/17/20 22:42 with tyramine/aged caused a stroke doxycycline Allergy Severe rash Verified 01/17/20 22:42 topiramate Allergy Severe BREATHING Verified 01/17/20 22:42 PROBLEM & EYE PROBLEMS. beclomethasone [From Qvar] Allergy Intermediate swelling Verified 01/17/20 22:42 of lip adhesive Allergy Mild RASH, Verified 01/17/20 22:42 BLISTER latex Allergy Mild RASH, Verified 01/17/20 22:42 BLISTER nickel Allergy Mild Rash Verified 01/17/20 22:42 ephedrine Allergy Unknown REACTS Verified 01/17/20 22:42 WITH ANOTHER MED gabapentin AdvReac Severe rash Verified 01/17/20 22:42 albuterol AdvReac Unknown as per px Verified 01/18/20 00:52 epinephrine AdvReac Unknown reacts to Verified 01/17/20 22:42 a med levalbuterol AdvReac Unknown as per px Verified 01/18/20 00:52 Tyramine Allergy Severe WAS Uncoded 01/09/20 12:22 BELIEVED IT CAUSED A STROKE Past Med/Surg History Medical History Adrenal insufficiency Anemia Balance problem Chronic back pain COPD (chronic obstructive pulmonary disease) inhaler daily Degenerative disc disease Dystonia Ectopic atrial tachycardia no longer follows w/ cardio (used to follow w/ Dr. Gaviria) GERD (gastroesophageal reflux disease) Glaucoma Hearing deficit History of subdural hematoma 02/2019 - fall Hypothyroid Kidney stones Lung nodule Major depressive disorder (06/11/12) On home oxygen therapy 2L n/c at hs Orthostatic hypotension Osteoarthritis Osteoporosis Pancreatic mass pcp monitoring Poor memory PTSD (post-traumatic stress disorder) Recurrent falls Spinal stenosis Stroke 1983--numbness of left side of face--follows with Dr. Lopez in [facility] [place] Thoracic aortic ectasia Tremor Surgical History H/O esophagogastroduodenoscopy History of appendectomy History of bilateral cataract extraction per pt had it done twice on both eyes History of colonoscopy with polypectomy History of dilation and curettage mult History of laparotomy x2---uterine fibroids History of left heart catheterization ([facility]) 2012 @ [facility]--no stents History of tonsillectomy and adenoidectomy History of tooth extraction all upper teeth/most of lower History of transesophageal echocardiography ([facility]) S/P subdural hematoma evacuation Status post glaucoma surgery Tubal ligation status Family History Brother Family history of diabetes mellitus Family hx colonic polyps Son Family history of diabetes mellitus Aunt Family history of diabetes mellitus Uncle Family history of diabetes mellitus Mother Family hx of colon cancer Sister Family hx of colon cancer Other No family history of adverse response to anesthesia Social History Smoking Status: Former smoker Second Hand Exposure: Yes (father smoked); Hx Alcohol Use: No Hx Substance Use: No Preferred Language: Argentine Communication Ability: Effective Manufacturing Lead Required: No Beliefs That Will Affect Care: None marital status: Current Living Situation: Alone current occupational status: retired Feels Safe at Home: Yes Review of Systems A total of 10 systems reviewed and were otherwise negative Physical Exam Vital Signs Vital Signs - 24 hr 01/17/20 21:58 01/17/20 22:29 01/17/20 23:01 Temperature 37.2 C Temperature Source Oral Pulse Rate 85 68 Pulse Rate [Right Radial] Pulse Rate from SpO2 Sensor 67 Respiratory Rate 20 24 Respiratory Effort / Characteristics Non-Labored Spontaneous Respiratory Depth Normal Respiratory Pattern Regular Blood Pressure 143/55 H Blood Pressure [Right Arm] 137/88 Blood Pressure Mean 90 Blood Pressure Mean [Right Arm] 104 Pulse Oximetry 96 96 Oxygen Delivery Method Room Air Nasal Cannula Oxygen Flow Rate 2 Sepsis Recent Fever Within 48 Hours Yes Sepsis New/Unexplained Change in Mental Status N/A Sepsis Action Taken by Nursing No Action Required 01/17/20 23:06 01/17/20 23:15 01/17/20 23:30 Temperature Temperature Source Pulse Rate 66 62 65 Pulse Rate [Right Radial] Pulse Rate from SpO2 Sensor 66 62 67 Respiratory Rate 23 24 15 Respiratory Effort / Characteristics Respiratory Depth Respiratory Pattern Blood Pressure Blood Pressure [Right Arm] Blood Pressure Mean Blood Pressure Mean [Right Arm] Pulse Oximetry 94 94 Oxygen Delivery Method Nasal Cannula Nasal Cannula Oxygen Flow Rate 2 2 Sepsis Recent Fever Within 48 Hours Sepsis New/Unexplained Change in Mental Status Sepsis Action Taken by Nursing 01/17/20 23:31 01/18/20 00:10 01/18/20 00:57 Temperature Temperature Source Pulse Rate 65 Pulse Rate [Right Radial] Pulse Rate from SpO2 Sensor 66 Respiratory Rate 21 23 20 Respiratory Effort / Characteristics Non-Labored Spontaneous Accessory Muscle Use Non-Labored Spontaneous Respiratory Depth Respiratory Pattern Blood Pressure 133/69 Blood Pressure [Right Arm] Blood Pressure Mean 86 Blood Pressure Mean [Right Arm] Pulse Oximetry 98 96 94 Oxygen Delivery Method Nasal Cannula Nasal Cannula Nasal Cannula Oxygen Flow Rate 2 2 2 Sepsis Recent Fever Within 48 Hours Sepsis New/Unexplained Change in Mental Status Sepsis Action Taken by Nursing 01/18/20 01:09 01/18/20 01:41 Temperature Temperature Source Pulse Rate Pulse Rate [Right Radial] 63 Pulse Rate from SpO2 Sensor Respiratory Rate 14 Respiratory Effort / Characteristics Non-Labored Spontaneous Non-Labored Spontaneous Respiratory Depth Respiratory Pattern Blood Pressure Blood Pressure [Right Arm] Blood Pressure Mean Blood Pressure Mean [Right Arm] Pulse Oximetry 100 Oxygen Delivery Method Nasal Cannula Oxygen Flow Rate 2 Sepsis Recent Fever Within 48 Hours Sepsis New/Unexplained Change in Mental Status Sepsis Action Taken by Nursing VITALS: Vitals are noted on the nurse's note and reviewed by myself. Vital signs stable. GENERAL: Pleasant female, in no acute distress, nondiaphoretic, well-developed well-nourished. SKIN: The skin was without rashes, erythema, edema, or bruising. There is no tenting of the skin. Capillary reflex less than 2 seconds. HEAD: Normocephalic atraumatic. EARS: External auditory canals clear, tympanic membranes pearly [place] without erythema or effusion bilaterally. EYES: Pupils equal round and reactive to light and accommodation. Conjunctivae without injection, sclerae without icterus. Extraocular movements intact. NOSE: Patent, turbinates without inflammation or discharge. No sinus tenderness. MOUTH: Mucous membranes moist. Pharynx without erythema or exudate. Uvula midline. Airway patent. Tongue does not deviate. NECK: Supple without nuchal rigidity. No lymphadenopathy. No thyromegaly. Cervical spine is nontender. No JVD. HEART: Regular rate and rhythm LUNGS: Mild diffuse and expiratory wheezes, without rales or rhonchi. No retractions or accessory muscle use. ABDOMEN: Positive bowel sounds x 4. Normal tympanic percussion. Soft, nontender, without masses or organomegaly. Velez sign negative. No guarding or rebound tenderness. No CVA tenderness MUSCULOSKELETAL: No muscle atrophy, erythema, noted. NEURO: Patient was alert and oriented to person place and time. Normal sensat ion to light and sharp touch. No focal neurological deficits. Course Administered Medications Discontinued Medications Albuterol (Albut/Ipratrop 3mg/0.5mg Neb 3 Ml Vial) 3 ml NEB NOW STA Stop: 01/18/20 00:27 Last Admin: 01/18/20 00:42 Dose: Not Given Documented by: [id number] Dexamethasone (Dexamethasone Sod Inj 10 Mg/Ml Vial) 10 mg IV NOW ONE Stop: 01/17/20 23:24 Last Admin: 01/17/20 23:51 Dose: 10 mg Documented by: [id number] Sodium Chloride (Nss 1000ml) 500 mls @ 999 mls/hr IV .Q31M ONE Stop: 01/17/20 23:53 Last Infusion: 01/18/20 00:56 Dose: 0 mls/hr Documented by: [id number] Admin: 01/18/20 00:11 Dose: 999 mls/hr Documented by: [id number] Piperacillin Sod/Tazobactam Sod (Zosyn) 4.5 gm in 120 mls @ 240 mls/hr IV NOW ONE Stop: 01/17/20 23:52 Last Infusion: 01/18/20 00:57 Dose: 0 mls/hr Documented by: [id number] Admin: 01/18/20 00:11 Dose: 240 mls/hr Documented by: [id number] Ipratropium [place] (Ipratropium [place] Neb Soln 0.02% 2.5 Ml Vial) 0.5 mg NEB NOW STA Stop: 01/18/20 00:49 Last Admin: 01/18/20 01:07 Dose: 0.5 mg Documented by: [id number] Medical Decision Making Medical Records Attestation: I reviewed the patient's medical records. Home Medications Current Medication List: was personally reviewed by me Laboratory Data Attestation: I reviewed the patient's lab results. Result diagrams: 01/17/20 22:44 01/17/20 22:44 Lab Results 01/17/20 01/17/20 01/17/20 Range/Units 22:14 22:14 22:44 WBC 5.18 (4.8-10.8) K/uL RBC 3.43 L (4.2-5.4) M/uL Hgb 10.2 L (12.0-16.0) g/dL Hct 30.3 L (37-47) % MCV 88.3 (80-100) fL MCH 29.7 (25-34) pg MCHC 33.7 (32-36) g/dL RDW Std Deviation 39.2 (36.4-46.3) fL RDW Coeff of Paul 12.2 (11.5-14.5) % Plt Count 292 (130-400) K/uL MPV 9.7 (7.4-10.4) fL Immature Gran % (Auto) 0.0 % Neut % (Auto) 58.9 % Lymph % (Auto) 28.2 % [place] % (Auto) 8.1 % Eos % (Auto) 4.6 % Baso % (Auto) 0.2 % Neut # (Auto) 3.05 (1.4-6.5) K/uL Lymph # (Auto) 1.46 (1.2-3.4) K/uL [place] # (Auto) 0.42 (0.11-0.59) K/uL Eos # (Auto) 0.24 (0-0.5) K/uL Baso # (Auto) 0.01 (0-0.2) K/uL Immature Gran # (Auto) 0.00 (0.00-0.02) K/uL PT (9.0-12.0) Seconds INR (0.9-1.1) APTT (21.0-31.0) Seconds PTT Ratio D-Dimer (0-500) ug/L FEU Sodium (136-145) mmol/L Potassium (3.5-5.1) mmol/L Chloride (98-107) mmol/L Carbon Dioxide (21-32) mmol/L Anion Gap (3-11) BUN (7-18) mg/dl Creatinine (0.6-1.2) mg/dl Est Cr Clr Drug Dosing ml/min Est GFR ( Amer) Est GFR (Non-Af Amer) BUN/Creatinine Ratio (10-20) Glucose (70-99) mg/dl Osmolality (280-300) mOsm/kg Lactate (0.4-2.0) mmol/L Calcium (8.5-10.1) mg/dl Magnesium (1.8-2.4) mg/dl Total Bilirubin (0.2-1) mg/dl AST (15-37) U/L ALT (12-78) U/L Alkaline Phosphatase (45-117) U/L Troponin I (0-0.045) ng/ml Total Protein (6.4-8.2) gm/dl Albumin (3.4-5.0) gm/dl Globulin (2.5-4.0) gm/dl Albumin/Globulin Ratio (0.9-2) TSH (0.300-4.500) uIu/ml Free T4 (0.8-1.6) ng/dl Urine Color Urine Appearance (Clear) Urine pH (4.5-7.5) Ur Specific [place] (1.000-1.030) Urine Protein (Negative) Urine Glucose (UA) (Negative) Urine Ketones (Negative) Urine Blood (Negative) Urine Nitrite (Negative) Urine Bilirubin (Negative) Urine Urobilinogen (Negative) Ur Leukocyte Esterase (Negative) Urine Osmolality 138 L (500-800) mOsm/kg Ur Random Sodium 28 mmol/L Adenovirus (PCR) (NotDetected) B. pertussis DNA (PCR) (NotDetected) B.parapertussis DNA PCR (NotDetected) C. pneumoniae DNA (PCR) (NotDetected) Coronavirus OC43 (PCR) (NotDetected) Coronavirus HKU1 (PCR) (NotDetected) Coronavirus 229E (PCR) (NotDetected) COVID-19 Eval Order COVID-19 PCR (Negative) Coronavirus NL63 (PCR) (NotDetected) Human Metapneumovir PCR (NotDetected) Influenza Type A (PCR) (NotDetected) Influenza Type B (PCR) (NotDetected) M. pneumoniae (PCR) (NotDetected) Parainfluenza 1 (PCR) (NotDetected) Parainfluenza 2 (PCR) (NotDetected) Parainfluenza 3 (PCR) (NotDetected) Parainfluenza 4 (PCR) (NotDetected) RSV (PCR) (NotDetected) Entero/Rhino (PCR) (NotDetected) 01/17/20 01/17/20 01/17/20 Range/Units 22:44 22:44 22:44 WBC (4.8-10.8) K/uL RBC (4.2-5.4) M/uL Hgb (12.0-16.0) g/dL Hct (37-47) % MCV (80-100) fL MCH (25-34) pg MCHC (32-36) g/dL RDW Std Deviation (36.4-46.3) fL RDW Coeff of Paul (11.5-14.5) % Plt Count (130-400) K/uL MPV (7.4-10.4) fL Immature Gran % (Auto) % Neut % (Auto) % Lymph % (Auto) % [place] % (Auto) % Eos % (Auto) % Baso % (Auto) % Neut # (Auto) (1.4-6.5) K/uL Lymph # (Auto) (1.2-3.4) K/uL [place] # (Auto) (0.11-0.59) K/uL Eos # (Auto) (0-0.5) K/uL Baso # (Auto) (0-0.2) K/uL Immature Gran # (Auto) (0.00-0.02) K/uL PT 10.7 (9.0-12.0) Seconds INR 1.0 (0.9-1.1) APTT 27.2 (21.0-31.0) Seconds PTT Ratio 1.0 D-Dimer 360 (0-500) ug/L FEU Sodium 127 L (136-145) mmol/L Potassium 3.7 (3.5-5.1) mmol/L Chloride 93 L (98-107) mmol/L Carbon Dioxide 26 (21-32) mmol/L Anion Gap 8.0 (3-11) BUN 9 (7-18) mg/dl Creatinine 0.58 L (0.6-1.2) mg/dl Est Cr Clr Drug Dosing 82.5 ml/min Est GFR ( Amer) 108.2 Est GFR (Non-Af Amer) 93.4 BUN/Creatinine Ratio 15.2 (10-20) Glucose 85 (70-99) mg/dl Osmolality (280-300) mOsm/kg Lactate 0.5 (0.4-2.0) mmol/L Calcium 8.0 L (8.5-10.1) mg/dl Magnesium 2.3 (1.8-2.4) mg/dl Total Bilirubin 0.2 (0.2-1) mg/dl AST 26 (15-37) U/L ALT 20 (12-78) U/L Alkaline Phosphatase 50 (45-117) U/L Troponin I < 0.015 (0-0.045) ng/ml Total Protein 7.1 (6.4-8.2) gm/dl Albumin 3.4 (3.4-5.0) gm/dl Globulin 3.7 (2.5-4.0) gm/dl Albumin/Globulin Ratio 0.9 (0.9-2) TSH 11.100 H (0.300-4.500) uIu/ml Free T4 0.80 (0.8-1.6) ng/dl Urine Color Urine Appearance (Clear) Urine pH (4.5-7.5) Ur Specific [place] (1.000-1.030) Urine Protein (Negative) Urine Glucose (UA) (Negative) Urine Ketones (Negative) Urine Blood (Negative) Urine Nitrite (Negative) Urine Bilirubin (Negative) Urine Urobilinogen (Negative) Ur Leukocyte Esterase (Negative) Urine Osmolality (500-800) mOsm/kg Ur Random Sodium mmol/L Adenovirus (PCR) (NotDetected) B. pertussis DNA (PCR) (NotDetected) B.parapertussis DNA PCR (NotDetected) C. pneumoniae DNA (PCR) (NotDetected) Coronavirus OC43 (PCR) (NotDetected) Coronavirus HKU1 (PCR) (NotDetected) Coronavirus 229E (PCR) (NotDetected) COVID-19 Eval Order COVID-19 PCR (Negative) Coronavirus NL63 (PCR) (NotDetected) Human Metapneumovir PCR (NotDetected) Influenza Type A (PCR) (NotDetected) Influenza Type B (PCR) (NotDetected) M. pneumoniae (PCR) (NotDetected) Parainfluenza 1 (PCR) (NotDetected) Parainfluenza 2 (PCR) (NotDetected) Parainfluenza 3 (PCR) (NotDetected) Parainfluenza 4 (PCR) (NotDetected) RSV (PCR) (NotDetected) Entero/Rhino (PCR) (NotDetected) 01/17/20 01/17/20 01/18/20 Range/Units 22:44 22:44 00:05 WBC (4.8-10.8) K/uL RBC (4.2-5.4) M/uL Hgb (12.0-16.0) g/dL Hct (37-47) % MCV (80-100) fL MCH (25-34) pg MCHC (32-36) g/dL RDW Std Deviation (36.4-46.3) fL RDW Coeff of Paul (11.5-14.5) % Plt Count (130-400) K/uL MPV (7.4-10.4) fL Immature Gran % (Auto) % Neut % (Auto) % Lymph % (Auto) % [place] % (Auto) % Eos % (Auto) % Baso % (Auto) % Neut # (Auto) (1.4-6.5) K/uL Lymph # (Auto) (1.2-3.4) K/uL [place] # (Auto) (0.11-0.59) K/uL Eos # (Auto) (0-0.5) K/uL Baso # (Auto) (0-0.2) K/uL Immature Gran # (Auto) (0.00-0.02) K/uL PT (9.0-12.0) Seconds INR (0.9-1.1) APTT (21.0-31.0) Seconds PTT Ratio D-Dimer (0-500) ug/L FEU Sodium (136-145) mmol/L Potassium (3.5-5.1) mmol/L Chloride (98-107) mmol/L Carbon Dioxide (21-32) mmol/L Anion Gap (3-11) BUN (7-18) mg/dl Creatinine (0.6-1.2) mg/dl Est Cr Clr Drug Dosing ml/min Est GFR ( Amer) Est GFR (Non-Af Amer) BUN/Creatinine Ratio (10-20) Glucose (70-99) mg/dl Osmolality 269 L (280-300) mOsm/kg Lactate (0.4-2.0) mmol/L Calcium (8.5-10.1) mg/dl Magnesium (1.8-2.4) mg/dl Total Bilirubin (0.2-1) mg/dl AST (15-37) U/L ALT (12-78) U/L Alkaline Phosphatase (45-117) U/L Troponin I (0-0.045) ng/ml Total Protein (6.4-8.2) gm/dl Albumin (3.4-5.0) gm/dl Globulin (2.5-4.0) gm/dl Albumin/Globulin Ratio (0.9-2) TSH (0.300-4.500) uIu/ml Free T4 (0.8-1.6) ng/dl Urine Color Yellow Urine Appearance Clear (Clear) Urine pH 8.5 H (4.5-7.5) Ur Specific [place] 1.006 (1.000-1.030) Urine Protein Negative (Negative) Urine Glucose (UA) Negative (Negative) Urine Ketones Negative (Negative) Urine Blood Negative (Negative) Urine Nitrite Negative (Negative) Urine Bilirubin Negative (Negative) Urine Urobilinogen Negative (Negative) Ur Leukocyte Esterase Negative (Negative) Urine Osmolality (500-800) mOsm/kg Ur Random Sodium mmol/L Adenovirus (PCR) Not Detected (NotDetected) B. pertussis DNA (PCR) Not Detected (NotDetected) B.parapertussis DNA PCR Not Detected (NotDetected) C. pneumoniae DNA (PCR) Not Detected (NotDetected) Coronavirus OC43 (PCR) Not Detected (NotDetected) Coronavirus HKU1 (PCR) Not Detected (NotDetected) Coronavirus 229E (PCR) Not Detected (NotDetected) COVID-19 Eval Order COVID-19 PCR NEGATIVE (Negative) Coronavirus NL63 (PCR) Not Detected (NotDetected) Human Metapneumovir PCR Not Detected (NotDetected) Influenza Type A (PCR) Not Detected (NotDetected) Influenza Type B (PCR) Not Detected (NotDetected) M. pneumoniae (PCR) Not Detected (NotDetected) Parainfluenza 1 (PCR) Not Detected (NotDetected) Parainfluenza 2 (PCR) Not Detected (NotDetected) Parainfluenza 3 (PCR) Not Detected (NotDetected) Parainfluenza 4 (PCR) Not Detected (NotDetected) RSV (PCR) Not Detected (NotDetected) Entero/Rhino (PCR) Not Detected (NotDetected) 01/18/20 Range/Units 00:05 WBC (4.8-10.8) K/uL RBC (4.2-5.4) M/uL Hgb (12.0-16.0) g/dL Hct (37-47) % MCV (80-100) fL MCH (25-34) pg MCHC (32-36) g/dL RDW Std Deviation (36.4-46.3) fL RDW Coeff of Paul (11.5-14.5) % Plt Count (130-400) K/uL MPV (7.4-10.4) fL Immature Gran % (Auto) % Neut % (Auto) % Lymph % (Auto) % [place] % (Auto) % Eos % (Auto) % Baso % (Auto) % Neut # (Auto) (1.4-6.5) K/uL Lymph # (Auto) (1.2-3.4) K/uL [place] # (Auto) (0.11-0.59) K/uL Eos # (Auto) (0-0.5) K/uL Baso # (Auto) (0-0.2) K/uL Immature Gran # (Auto) (0.00-0.02) K/uL PT (9.0-12.0) Seconds INR (0.9-1.1) APTT (21.0-31.0) Seconds PTT Ratio D-Dimer (0-500) ug/L FEU Sodium (136-145) mmol/L Potassium (3.5-5.1) mmol/L Chloride (98-107) mmol/L Carbon Dioxide (21-32) mmol/L Anion Gap (3-11) BUN (7-18) mg/dl Creatinine (0.6-1.2) mg/dl Est Cr Clr Drug Dosing ml/min Est GFR ( Amer) Est GFR (Non-Af Amer) BUN/Creatinine Ratio (10-20) Glucose (70-99) mg/dl Osmolality (280-300) mOsm/kg Lactate (0.4-2.0) mmol/L Calcium (8.5-10.1) mg/dl Magnesium (1.8-2.4) mg/dl Total Bilirubin (0.2-1) mg/dl AST (15-37) U/L ALT (12-78) U/L Alkaline Phosphatase (45-117) U/L Troponin I (0-0.045) ng/ml Total Protein (6.4-8.2) gm/dl Albumin (3.4-5.0) gm/dl Globulin (2.5-4.0) gm/dl Albumin/Globulin Ratio (0.9-2) TSH (0.300-4.500) uIu/ml Free T4 (0.8-1.6) ng/dl Urine Color Urine Appearance (Clear) Urine pH (4.5-7.5) Ur Specific [place] (1.000-1.030) Urine Protein (Negative) Urine Glucose (UA) (Negative) Urine Ketones (Negative) Urine Blood (Negative) Urine Nitrite (Negative) Urine Bilirubin (Negative) Urine Urobilinogen (Negative) Ur Leukocyte Esterase (Negative) Urine Osmolality (500-800) mOsm/kg Ur Random Sodium mmol/L Adenovirus (PCR) (NotDetected) B. pertussis DNA (PCR) (NotDetected) B.parapertussis DNA PCR (NotDetected) C. pneumoniae DNA (PCR) (NotDetected) Coronavirus OC43 (PCR) (NotDetected) Coronavirus HKU1 (PCR) (NotDetected) Coronavirus 229E (PCR) (NotDetected) COVID-19 Eval Order Covid19 Done at [facility] COVID-19 PCR (Negative) Coronavirus NL63 (PCR) (NotDetected) Human Metapneumovir PCR (NotDetected) Influenza Type A (PCR) (NotDetected) Influenza Type B (PCR) (NotDetected) M. pneumoniae (PCR) (NotDetected) Parainfluenza 1 (PCR) (NotDetected) Parainfluenza 2 (PCR) (NotDetected) Parainfluenza 3 (PCR) (NotDetected) Parainfluenza 4 (PCR) (NotDetected) RSV (PCR) (NotDetected) Entero/Rhino (PCR) (NotDetected) Imaging Data Attestation: I personally reviewed and interpreted this imaging study as follows: Blood Pressure Blood Pressure Findings: Normal blood pressure MDM Narrative Prior records/ancillary studies reviewed and summarized above. Nursing notes reviewed. Additional history obtained from nursing. The patient's history was concerning for cold symptoms fatigue and shortness of breath. Differential diagnosis: Etiologies such as metabolic, infection, hypo/hyperglycemia, electrolyte abnormalities, cardiac sources, intracerebral event, toxicologic, neurologic, as well as others were entertained. Physical examination: As above. ER treatment provided: IV Lock An order was placed for continuous cardiac monitoring. The monitor shows a rate of 60-100 with a normal sinus rhythm. IV fluids, Zosyn On reassessment the patient felt better. Diagnostics interpretation by me: ECG: Ordered for dyspnea EKG: Normal sinus, normal intervals, T wave inversion in lead III, anterior septal leads rate of 66. EKG compared to prior EKG with no acute changes noted. Impression normal sinus rhythm with chronic T wave inversions interpreted by myself. I think arrhythmia is unlikely. EKG shows normal sinus rhythm with no interval abnormalities such as QT prolongation or WPW. There are no findings to suggest Brugada syndrome. Cardiac monitoring in the emergency department reveals no tachycardic or bradycardic dysrhythmia. Hypertrophic cardiomyopathy was considered but there are no clear historical elements pointing toward this. EKG is not suggestive. The QRS voltage is not extremely large and there are no suggestive Q waves. The labs revealed hyponatremia. Blood cultures pending. The lactic acid. New COVID ordered along with [place] and are negative COVID test last week was negative per chart review Imaging studies: Chest x-ray with possible left lower lobe pneumonia per my interpretation. Consultation: A consultation was placed with the hospitalist, Dr Napier. The case was discussed and diagnostics were reviewed. The patient was evaluated in the ER for further treatment. Exam and history seem consistent with COPD exacerbation with possible pneumonia and hyponatremia. Patient started on antibiotics. COVID tested bio fire was ordered. Medicine was consulted. Patient is agreeable treatment plan of a dmission. By the evaluation outlined above emergent etiologies such as cardiac sources, intracerebral event, toxologic, neurologic, abnormalities blood glucose, metabolic, as well as others were deemed relatively unlikely. The pt informed about the findings as listed above. All questions were answered and pleased with the treatment. The chart was completed utilizing [employer] Speech voice recognition software. Grammatical errors, random word insertions, pronoun errors, and incomplete sentences are an occassional consequence of this system due to software limitations, ambient noise, and hardware issues. Any formal questions or concerns about the content, text, or information contained within the body of this dictation should be directly addressed to the physician diploma dental assistant for clarification. Impression & Plan COPD (chronic obstructive pulmonary disease), Acute hyponatremia Discharge Plan Visit Data Chief Complaint: Illness Stated Complaint: SOB,COUGH,FEVER ED Provider: Max Cohen ED Midlevel Provider: Ada Antoine Discharge Problem: COPD (chronic obstructive pulmonary disease), Acute hyponatremia Patient Disposition: Admitted As Inpatient Condition: Fair Forms Stand Alone Forms: My [facility] Prescriptions Prescriptions: No Action coenzyme Q10 100 mg capsule 200 mg PO HS RF: 0 estradiol 0.01 % (0.1 mg/gram) cream 0.01 % PV UD RF: 0 lamotrigine 200 mg tablet 200 mg PO HS RF: 0 levothyroxine 75 mcg tablet 75 mcg PO QAM Qty: 90 RF: 0 clonazepam 0.5 mg tablet 1.5 mg PO HS Qty: 60 RF: 0 primidone 50 mg tablet 100 mg PO BIDM RF: 0 Daily Probiotic 2.5 billion cell capsule 1 cap PO HS RF: 0 polyethylene glycol 3350 [Miralax] 17 gram/dose powder 8.5 gm PO DAILY PRN (Reason: Constipation) RF: 0 phenelzine 15 mg Tablet 30 mg PO BID RF: 0 raloxifene 60 mg Tablet 60 mg PO HS RF: 0 primidone 50 mg Tablet 150 mg PO HS RF: 0 calcium carbonate-vitamin D3 [Calcium 600 + D(3)] 600 mg(1,500mg) -200 unit Tablet 1 tab PO HS RF: 0 famotidine 40 mg tablet 20 mg PO BID RF: 0 triamcinolone acetonide 0.1 % cream 1 applic TOPICAL BID RF: 0 nystatin 100,000 unit/mL suspension 5 ml buccal QID PRN (Reason: Thrush) RF: 0 clonazepam 1 mg tablet 0.5 mg PO 1500 RF: 0 Spiriva Respimat 2.5 mcg/actuation mist 2 puff INHALATION QAM RF: 0 furosemide 20 mg Tablet 20 mg PO MOWEFR RF: 0 Ensure Liquid 1 ea PO DAILY RF: 0 Referrals Referrals: López Edward MD [Primary Care Provider] - Discharge Problem: COPD (chronic obstructive pulmonary disease) Qualifiers: COPD type: COPD with acute exacerbation Qualified Code(s): J44.1 - Chronic obstructive pulmonary disease with (acute) exacerbation
[2020-01-17 22:58] LABS: Appearance Urine Clear (Clear); Bilirubin Urine Negative (Negative); Blood Urine Negative (Negative); Color Urine Yellow; Glucose Urine UA Negative (Negative); Ketones Urine Negative (Negative); Leukocyte Esterase Urine Negative (Negative); Nitrite Urine Negative (Negative); Protein Urine Negative (Negative); Specific Gravity Urine 1.006 (1.000-1.030); Urobilinogen Urine Negative (Negative); pH Urine 8.5 (4.5-7.5)
[2020-01-17 22:59] LABS: Basophils # (auto) 0.01 K/uL (0-0.2); Basophils % (auto) 0.2 %; Eosinophils # (auto) 0.24 K/uL (0-0.5); Eosinophils % (auto) 4.6 %; Hematocrit (blood only) 30.3 % (37-47); Hemoglobin 10.2 g/dL (12.0-16.0); Lymphocytes # (auto) 1.46 K/uL (1.2-3.4); Lymphocytes % (auto) 28.2 %; Mean Corpuscular Hemoglobin 29.7 pg (25-34); Mean Corpuscular Hgb Conc 33.7 g/dL (32-36); Mean Corpuscular Volume 88.3 fL (80-100); Mean Platelet Volume 9.7 fL (7.4-10.4); Monocytes # (auto) 0.42 K/uL (0.11-0.59); Monocytes % (auto) 8.1 %; Neutrophils # (auto) 3.05 K/uL (1.4-6.5); Neutrophils % (auto) 58.9 %; Platelet Count 292 K/uL (130-400); RDW Coefficient of Variation 12.2 % (11.5-14.5); RDW Standard Deviation 39.2 fL (36.4-46.3); Red Blood Count 3.43 M/uL (4.2-5.4); White Blood Count 5.18 K/uL (4.8-10.8)
[2020-01-17 23:12] LABS: Partial Thromboplastin Time 27.2 Seconds (21.0-31.0); Prothrombin Time 10.7 Seconds (9.0-12.0)
[2020-01-17 23:20] LABS: Alanine Aminotransferase 20 U/L (12-78); Albumin Level 3.4 gm/dl (3.4-5.0); Aspartate Aminotransferase 26 U/L (15-37); BUN Creatinine Ratio 15.2 (10-20); Blood Urea Nitrogen 9 mg/dl (7-18); Carbon Dioxide 26 mmol/L (21-32); Chloride 93 mmol/L (98-107); Creatinine Clr Calc Pharmacy 82.5 ml/min; Est GFR (African American) 108.2; Est GFR (Non-African American) 93.4; Glucose 85 mg/dl (70-99); Magnesium 2.3 mg/dl (1.8-2.4); Potassium 3.7 mmol/L (3.5-5.1); Sodium 127 mmol/L (136-145)
[2020-01-17] MEDS ORDERED: PIPERACILL/TAZOBAC CONSULT ACTIVE PRN (23:23)
[2020-01-17] MEDS ORDERED: PIPERACILLIN/TAZOBACTAM 4.5 GM/120 ML BAG IV ONE (23:23)
[2020-01-17] MEDS ORDERED: DEXAMETHASONE SOD INJ 10 MG/ML VIAL IV ONE (23:23)
[2020-01-17] MEDS ORDERED: SODIUM CHLORIDE 0.9% 1000ML 500 ML IV ONE (23:23)
[2020-01-17 23:30] LABS: Albumin Globulin Ratio 0.9 (0.9-2); Alkaline Phosphatase 50 U/L (45-117); Bilirubin,Total 0.2 mg/dl (0.2-1); Globulin 3.7 gm/dl (2.5-4.0); Total Protein 7.1 gm/dl (6.4-8.2); Troponin I < 0.015 ng/ml (0-0.045)
[2020-01-18] LABS: D Dimer 360 ug/L FEU (0-500)
[2020-01-18] MEDS ORDERED: ALBUT/IPRATROP 3MG/0.5MG NEB 3 ML VIAL NEB STA (00:26)
[2020-01-18] MEDS ORDERED: CALCIUM GLUCONATE 10% 1,000 MG in SODIUM CHLORIDE 0.9% 50 ML IV STA (00:40)
--- NOTE | 2020-01-18 00:46 | History & Physical Report ---
Date of Service January 18, 2020 Assessment & Plan (1) Respiratory failure, acute and chronic: hx chronic respiratory failure secondary to COPD on home O2 Secondary to COPD exacerbation, possible aspiration pneumonia, history esophageal dysmotility as per records Patient not septic for now. Acute on chronic hyponatremia Possible underlying SIADH hx adrenal insufficiency/orthostatic hypotension ? Secondary to recent diuretic Rx hx CVA/PVD as per records hx subdural hematoma status post surgery (2019) mood disorder, at baseline chronic anemia, hemoglobin at baseline hypothyroidism, TSH slightly elevated movement DSO on Mysoline past tobacco abuse Medical telemetry Supplemental O2 Baseline ABG Augmentin, ipratropium nebs RTC (patient refusing beta agonists nebs citing unrecalled adverse reactions in the past), prednisone course Pulmonary consult Re: COPD exacerbation Swallow eval, aspiration precautions Follow serum sodium after initial fluid bolus given at the ER, Hold Lasix for now Hyponatremia work-up Nephrology consult RE acute on chronic hyponatremia DVT prophylaxis. SCDs RE recent traumatic subdural hematoma Full code Text document was generated using [employer] voice recognition software. It may contain grammatical or spelling errors. Kindly contact undersigned for clarification of any documentation item in question. History of Present Illness Chief Complaint: Cough, S OB Primary Care Provider: López Edward MD History obtained from patient and records. Medical history significant for Medical history significant for chronic respiratory failure secondary to COPD on home O2, CVA, hx PVD, recent subdural hematoma status post surgery (2019), mood disorder, chronic hyponatremia, chronic anemia (baseline hemoglobin 10), hypothyroidism, movement DSO on [place], orthostatic hypotension /hx adrenal insufficiency as per records, esophageal dysmotility as per records for dysfunction, past tobacco abuse. Patient admitted at [facility] April 2019 for traumatic subdural hematomae with midline shift secondary to fall sp right middle meningeal artery particle and coil embolization. Repeat CT head outpatient November 2019 showed near complete resolution of right subdural hematoma. No need to follow-up with [facility] neurosurgeon as per documentation. Patient seen at PCPs office 2 months ago for bilateral leg swelling with inconsistent shortness of breath. Outpatient TTE showed normal LVEF, grade diastolic dysfunction. Outpatient BNP was normal. Patient evaluated by [facility] Cardiology outpatient for lower extremity edema following with referral last month. Lasix 20 mg 3 times a week (MWF) trial recommended for localized edema findings. Some improvement of leg swelling as per patient. Last 3 days patient feeling sick, nauseous with low-grade fever at home, appetite not too good. Dry to junky cough different from usual. No chest pain. Worsening shortness of breath. Choking symptoms with meals from time to time. No known COVID-19 sick contacts. No unusual headaches, abdominal pain. At the ER, patient received Zosyn, Decadron for COPD exacerbation secondary to possible pneumonia right At some point, O2 sats noted to be 80s on room air at the ER. MED hx as above : SURGERIES: She has had appendectomy, tubal ligation, tonsillectomy and adenoidectomy, vascular procedures, cataract surgeries, eyelid surgery, fibroid removal, dental surgery FAMILY HISTORY: Parkinson DSE, stomach cancer, heart disease PERSONAL AND SOCIAL HISTORY: Past tobacco abuse. Occasional EtOH intake. 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 Allergies Allergy/AdvReac Type Severity Reaction Status Date / Time cheese Allergy Severe anything Verified 01/17/20 22:42 with tyramine/aged caused a stroke doxycycline Allergy Severe rash Verified 01/17/20 22:42 topiramate Allergy Severe BREATHING Verified 01/17/20 22:42 PROBLEM & EYE PROBLEMS. beclomethasone [From Qvar] Allergy Intermediate swelling Verified 01/17/20 22:42 of lip adhesive Allergy Mild RASH, Verified 01/17/20 22:42 BLISTER latex Allergy Mild RASH, Verified 01/17/20 22:42 BLISTER nickel Allergy Mild Rash Verified 01/17/20 22:42 ephedrine Allergy Unknown REACTS Verified 01/17/20 22:42 WITH ANOTHER MED gabapentin AdvReac Severe rash Verified 01/17/20 22:42 albuterol AdvReac Unknown as per px Verified 01/18/20 00:52 epinephrine AdvReac Unknown reacts to Verified 01/17/20 22:42 a med levalbuterol AdvReac Unknown as per px Verified 01/18/20 00:52 Tyramine Allergy Severe WAS Uncoded 01/09/20 12:22 BELIEVED IT CAUSED A STROKE Home Medications Home Medications Medication Instructions Recorded Confirmed Type clonazepam 0.5 mg tablet 1.5 mg PO HS #60 tab 02/05/19 01/17/20 History coenzyme Q10 100 mg capsule 200 mg PO HS cap 02/05/19 01/17/20 History estradiol 0.01 % PV UD gm 02/05/19 01/17/20 History lamotrigine 200 mg tablet 200 mg PO HS tab 02/05/19 01/17/20 History levothyroxine 75 mcg tablet 75 mcg PO QAM #90 tab 02/05/19 01/17/20 History primidone 50 mg tablet 100 mg PO BIDM tab 02/05/19 01/17/20 History Lactobacillus 1 cap PO HS cap 02/07/19 01/17/20 History acidophilus-Bifidobac.animalis 2.5 billion cell capsule polyethylene glycol 3350 17 8.5 gm PO DAILY PRN 02/07/19 01/17/20 History gram/dose oral powder phenelzine 30 mg PO BID 03/19/19 01/17/20 History primidone 150 mg PO HS 03/19/19 01/17/20 History raloxifene 60 mg PO HS 03/19/19 01/17/20 History nystatin 5 ml BUCCAL QID PRN 04/11/19 01/17/20 History clonazepam 0.5 mg PO 1500 05/19/19 01/17/20 History tiotropium bromide [Spiriva 2 puff INHALATION QAM 05/19/19 01/17/20 History Respimat] calcium carbonate-vitamin D3 1 tab PO HS 10/10/19 01/17/20 History [Calcium 600 + D(3)] food supplemt, lactose-reduced 1 ea PO DAILY 01/09/20 01/17/20 History [Ensure] furosemide 20 mg PO MOWEFR 01/09/20 01/17/20 History famotidine 20 mg PO BID 01/17/20 01/17/20 History triamcinolone acetonide 1 applic TOPICAL BID 01/17/20 01/17/20 History Past Med/Surg History Medical History Adrenal insufficiency Anemia Balance problem Chronic back pain COPD (chronic obstructive pulmonary disease) inhaler daily Degenerative disc disease Dystonia Ectopic atrial tachycardia no longer follows w/ cardio (used to follow w/ Dr. Gaviria) GERD (gastroesophageal reflux disease) Glaucoma Hearing deficit History of subdural hematoma 02/2019 - fall Hypothyroid Kidney stones Lung nodule Major depressive disorder (11/01/11) On home oxygen therapy 2L n/c at hs Orthostatic hypotension Osteoarthritis Osteoporosis Pancreatic mass pcp monitoring Poor memory PTSD (post-traumatic stress disorder) Recurrent falls Spinal stenosis Stroke 1983--numbness of left side of face--follows with Dr. Lopez in [facility] Thoracic aortic ectasia Tremor Surgical History H/O esophagogastroduodenoscopy History of appendectomy History of bilateral cataract extraction per pt had it done twice on both eyes History of colonoscopy with polypectomy History of dilation and curettage mult History of laparotomy x2---uterine fibroids History of left heart catheterization (LH) 2013 @ [facility]--no stents History of tonsillectomy and adenoidectomy History of tooth extraction all upper teeth/most of lower History of transesophageal echocardiography (SHAYE) S/P subdural hematoma evacuation Status post glaucoma surgery Tubal ligation status Family History Brother Family history of diabetes mellitus Family hx colonic polyps Son Family history of diabetes mellitus Aunt Family history of diabetes mellitus Uncle Family history of diabetes mellitus Mother Family hx of colon cancer Sister Family hx of colon cancer Other No family history of adverse response to anesthesia Social History Smoking Status: Former smoker Second Hand Exposure: Yes (father smoked); Hx Alcohol Use: No Hx Substance Use: No Preferred Language: Frisian Communication Ability: Effective Artificial Glass Eye Maker Required: No Beliefs That Will Affect Care: None marital status: Current Living Situation: Alone current occupational status: retired Feels Safe at Home: Yes Review of Systems Review of Systems: As per HPI, all 10 systems reviewed, all other ROS negative Physical Exam Physical Exam: GENERAL: Comfortable, no respiratory distress, chronic head tremors SKIN: Pallor, warm HEENT: Pale palpebral conjunctivae, no ptosis, dry buccal mucosa, nasal cannula in place NECK : Supple, no tenderness CHEST : Decreased breath sounds, occasional expiratory wheezes, no tenderness HEART : RRR, no obvious murmurs ABDOMEN: Some distention, nontender EXTREMITIES : Minimal LE swelling (R>L) , no LE tenderness, no other conspicuous deformities noted NEUROLOGIC : Coherent, no facial asymmetry, chronic hand tremors, gait and stance not assessed Results & Data Results & Data ([facility]) Vital Signs (Past 12 Hours) Vital Signs Temp Pulse Resp BP BP Pulse Ox 01/18/20 00:10 23 96 01/17/20 23:31 65 21 133/69 98 01/17/20 23:30 65 15 94 01/17/20 23:15 62 24 01/17/20 23:06 66 23 94 01/17/20 23:01 68 24 143/55 H 96 01/17/20 22:29 137/88 01/17/20 21:58 37.2 C 85 20 96 Laboratory Results Laboratory Results WBC 5.18 K/uL (4.8-10.8) 01/17/20 22:44 RBC 3.43 M/uL (4.2-5.4) L 01/17/20 22:44 Hgb 10.2 g/dL (12.0-16.0) L 01/17/20 22:44 Hct 30.3 % (37-47) L 01/17/20 22:44 MCV 88.3 fL (80-100) 01/17/20 22:44 MCH 29.7 pg (25-34) 01/17/20 22:44 MCHC 33.7 g/dL (32-36) 01/17/20 22:44 RDW Std Deviation 39.2 fL (36.4-46.3) 01/17/20 22:44 RDW Coeff of Paul 12.2 % (11.5-14.5) 01/17/20 22:44 Plt Count 292 K/uL (130-400) 01/17/20 22:44 MPV 9.7 fL (7.4-10.4) 01/17/20 22:44 Immature Gran % (Auto) 0.0 % 01/17/20 22:44 Neut % (Auto) 58.9 % 01/17/20 22:44 Lymph % (Auto) 28.2 % 01/17/20 22:44 [place] % (Auto) 8.1 % 01/17/20 22:44 Eos % (Auto) 4.6 % 01/17/20 22:44 Baso % (Auto) 0.2 % 01/17/20 22:44 Neut # (Auto) 3.05 K/uL (1.4-6.5) 01/17/20 22:44 Lymph # (Auto) 1.46 K/uL (1.2-3.4) 01/17/20 22:44 [place] # (Auto) 0.42 K/uL (0.11-0.59) 01/17/20 22:44 Eos # (Auto) 0.24 K/uL (0-0.5) 01/17/20 22:44 Baso # (Auto) 0.01 K/uL (0-0.2) 01/17/20 22:44 Immature Gran # (Auto) 0.00 K/uL (0.00-0.02) 01/17/20 22:44 PT 10.7 Seconds (9.0-12.0) 01/17/20 22:44 INR 1.0 (0.9-1.1) 01/17/20 22:44 APTT 27.2 Seconds (21.0-31.0) 01/17/20:44 PTT Ratio 1.0 01/17/20 22:44 D-Dimer 360 ug/L FEU (0-500) 01/17/20 22:44 Sodium 127 mmol/L (136-145) L 01/17/20 22:44 Potassium 3.7 mmol/L (3.5-5.1) 01/17/20 22:44 Chloride 93 mmol/L (98-107) L 01/17/20 22:44 Carbon Dioxide 26 mmol/L (21-32) 01/17/20 22:44 Anion Gap 8.0 (3-11) 01/17/20 22:44 BUN 9 mg/dl (7-18) 01/17/20 22:44 Creatinine 0.58 mg/dl (0.6-1.2) L 01/17/20 22:44 Est Cr Clr Drug Dosing 82.5 ml/min 01/17/20 22:44 Est GFR ( Amer) 108.2 01/17/20 22:44 Est GFR (Non-Af Amer) 93.4 01/17/20 22:44 BUN/Creatinine Ratio 15.2 (10-20) 01/17/20 22:44 Glucose 85 mg/dl (70-99) 01/17/20 22:44 Osmolality 269 mOsm/kg (280-300) L 01/17/20 22:44 Lactate 0.5 mmol/L (0.4-2.0) 01/17/20 22:44 Calcium 8.0 mg/dl (8.5-10.1) L 01/17/20 22:44 Magnesium 2.3 mg/dl (1.8-2.4) 01/17/20 22:44 Total Bilirubin 0.2 mg/dl (0.2-1) 01/17/20 22:44 AST 26 U/L (15-37) 01/17/20 22:44 ALT 20 U/L (12-78) 01/17/20 22:44 Alkaline Phosphatase 50 U/L (45-117) 01/17/20 22:44 Troponin I < 0.015 ng/ml (0-0.045) 01/17/20 22:44 Total Protein 7.1 gm/dl (6.4-8.2) 01/17/20 22:44 Albumin 3.4 gm/dl (3.4-5.0) 01/17/20:44 Globulin 3.7 gm/dl (2.5-4.0) 01/17/20:44 Albumin/Globulin Ratio 0.9 (0.9-2) 01/17/20 22:44 TSH 11.100 uIu/ml (0.300-4.500) H 01/17/20 22:44 Free T4 0.80 ng/dl (0.8-1.6) 01/17/20 22:44 Urine Color Yellow 01/17/20 22:44 Urine Appearance Clear (Clear) 01/17/20 22:44 Urine pH 8.5 (4.5-7.5) H 01/17/20 22:44 Ur Specific [place] 1.006 (1.000-1.030) 01/17/20 22:44 Urine Protein Negative (Negative) 01/17/20 22:44 Urine Glucose (UA) Negative (Negative) 01/17/20 22:44 Urine Ketones Negative (Negative) 01/17/20:44 Urine Blood Negative (Negative) 01/17/20 22:44 Urine Nitrite Negative (Negative) 01/17/20 22:44 Urine Bilirubin Negative (Negative) 01/17/20 22:44 Urine Urobilinogen Negative (Negative) 01/17/20 22:44 Ur Leukocyte Esterase Negative (Negative) 08/27/20 22:44 Ur Random Sodium 28 mmol/L 01/17/20 22:14 COVID-19 Eval Order Covid19 Done at [facility] 01/18/20 00:05 Diagnostic Findings Chest x-ray per my interpretation atelectasis, elevated right hemidiaphragm, possible infiltrate right EKG as per my interpretation : Rate 65, NSR, normal axis, incomplete RBBB, T wave abnormalities inferior and anteroseptal leads
[2020-01-18] MEDS ORDERED: IPRATROPIUM BROMIDE NEB SOLN 0.02% 2.5 ML VIAL NEB STA (00:48)
[2020-01-18 01:29] LABS: Adenovirus PCR Not Detected (NotDetected); Bordetella parapertussis PCR Not Detected (NotDetected); Bordetella pertussis PCR Not Detected (NotDetected); Chlamydia pneumoniae PCR Not Detected (NotDetected); Coronavirus 229E PCR Not Detected (NotDetected); Coronavirus HKU1 PCR Not Detected (NotDetected); Coronavirus NL63 PCR Not Detected (NotDetected); Coronavirus OC43PCR Not Detected (NotDetected); Human Metapneumovirus PCR Not Detected (NotDetected); Influenza A PCR Not Detected (NotDetected); Influenza B PCR Not Detected (NotDetected); Mycoplasma pneumoniae PCR Not Detected (NotDetected); Parainfluenza Virus 1 PCR Not Detected (NotDetected); Parainfluenza Virus 2 PCR Not Detected (NotDetected); Parainfluenza Virus 3 PCR Not Detected (NotDetected); Parainfluenza Virus 4 PCR Not Detected (NotDetected); Respiratory Syncytial VirusPCR Not Detected (NotDetected); Rhinovirus/Enterovirus PCR Not Detected (NotDetected)
[2020-01-18 01:33] LABS: SARS CoV2 RNA(COVID-19) InHosp NEGATIVE (Negative)
--- NOTE | 2020-01-18 01:38 | Emergency Department Note ---
ED Visit Note The patient was seen and examined with Maris Antoine PA-C. I agree with the history, physical and findings. Please see the note for disposition and details. . : COPD (chronic obstructive pulmonary disease) Qualifiers: COPD type: COPD with acute exacerbation Qualified Code(s): J44.1 - Chronic obstructive pulmonary disease with (acute) exacerbation
[2020-01-18 02:13] LABS: Base Excess ABG 0.9 mEq/L (-9-1.8); HCO3 ABG 27 mmol/L (19-24); Oxygen Saturation ABG 97.1 % (90-95); PCO2 ABG 47 mmHg (35-46); PO2 ABG 96 mmHg (80-95); pH ABG 7.37 (7.35-7.45)
[2020-01-18 02:14] LABS: Allen Test Pos (Pos)
[2020-01-18] MEDS ORDERED: POTASSIUM CHLORIDE PWD 20 MEQ PACK PO STA (02:47)
[2020-01-18] MEDS ORDERED: POLYETHYLENE (MIRALAX) 17 GM PACK PO PRN (03:02)
[2020-01-18] MEDS ORDERED: OXYCODONE HCL IR 5 MG TAB (IMMEDIATE RELEASE) PO PRN (03:02)
[2020-01-18] MEDS ORDERED: PROMETHAZINE HCL 12.5 MG in SODIUM CHLORIDE 0.9% 50 ML IV PRN (03:02)
[2020-01-18] MEDS ORDERED: AUGMENTIN~PHARMACY CONSULT IN PROGRESS PRN (03:24)
[2020-01-18] MEDS ORDERED: LORazepam 2 MG/4 ML VIAL IV STA (05:40)
[2020-01-18 05:46] LABS: Basophils # (auto) 0.01 K/uL (0-0.2); Basophils % (auto) 0.2 %; Eosinophils # (auto) 0.02 K/uL (0-0.5); Eosinophils % (auto) 0.5 %; Hematocrit (blood only) 32.8 % (37-47); Hemoglobin 10.6 g/dL (12.0-16.0); Lymphocytes % (auto) 11.5 %; Mean Corpuscular Hemoglobin 29.4 pg (25-34); Mean Corpuscular Hgb Conc 32.3 g/dL (32-36); Mean Corpuscular Volume 91.1 fL (80-100); Mean Platelet Volume 9.6 fL (7.4-10.4); Monocytes # (auto) 0.08 K/uL (0.11-0.59); Monocytes % (auto) 1.8 %; Neutrophils # (auto) 3.72 K/uL (1.4-6.5); Platelet Count 294 K/uL (130-400); RDW Coefficient of Variation 12.3 % (11.5-14.5); RDW Standard Deviation 41.6 fL (36.4-46.3); White Blood Count 4.33 K/uL (4.8-10.8)
[2020-01-18] MEDS: LEVOTHYROXINE SODIUM 75 MCG TABLET PO SCH (06:00)
[2020-01-18] MEDS: guaiFENesin 600 MG TABCR PO SCH ×3 (06:00→20:56)
[2020-01-18] MEDS ORDERED: IPRATROPIUM BROMIDE NEB SOLN 0.02% 2.5 ML VIAL INH PRN (07:00)
[2020-01-18 07:29] LABS: BUN Creatinine Ratio 12.5 (10-20); Calcium 8.6 mg/dl (8.5-10.1); Creatinine Clr Calc Pharmacy 73.1 ml/min; Est GFR (African American) 106.5; Est GFR (Non-African American) 91.9; Potassium 3.9 mmol/L (3.5-5.1)
--- NOTE | 2020-01-18 07:44 | XRay Report ---
XR chest 1V portable HISTORY: SEPSIS COMPARISON: Chest 10/10/2019. FINDINGS: Mild diffuse interstitial thickening, unchanged. This is likely chronic. No new focal lung consolidations to suggest pneumonia. No evidence for pulmonary edema. The heart remains enlarged. No pleural effusions. No pneumothorax. IMPRESSION: No significant change compared to the prior study. No acute process. ACT 112: Negative or not required by law. Electronically signed by: Cr Ruano M.D. 01/18/2020 7:42 AM
[2020-01-18] MEDS: AMOXICILLIN/CLAVULANATE 875 MG TAB PO SCH ×2 (08:12→17:12)
[2020-01-18] MEDS: PRIMIDONE 50 MG TAB PO SCH ×2 (08:12→17:12)
[2020-01-18] MEDS: FAMOTIDINE 20 MG TAB PO SCH ×2 (08:12→20:56)
[2020-01-18] MEDS: predniSONE 20 MG TAB PO SCH (08:12)
[2020-01-18] MEDS ORDERED: NON-FORMULARY MEDICATION (Food Supplemt, Lactose-Reduced [Ensure] 1 EA) PO SCH (09:00)
--- NOTE | 2020-01-18 09:34 | Electrocardiogram Report ---
Test Reason : Blood Pressure : / mmHG Vent. Rate : 066 BPM Atrial Rate : 066 BPM P-R Int : 166 ms QRS Dur : 090 ms QT Int : 434 ms P-R-T Axes : 058 -27 023 degrees QTc Int : 454 ms Normal sinus rhythm Incomplete right bundle branch block Nonspecific T wave abnormality Anteroseptal leads Abnormal ECG When compared with ECG of 10-OCT-2019 20:33, No significant change Confirmed by Lobo Elder ([id number]) on 01/18/2020 9:34:06 AM Referred By: López Edward Confirmed By:Lobo Elder
--- NOTE | 2020-01-18 10:27 | Pulmonary Consultation ---
Date of Consultation January 18, 2020 Assessment & Plan (1) Respiratory failure, acute and chronic: Impression: 69-year-old female with reported history of COPD however her spirometry was normal with the exception of a mild decrease in diffusion capacity and prior CT scan of the chest did not demonstrate significant emphysematous changes. She is admitted with shortness of breath unrelated to sleep disordered breathing. She received empiric therapy with antibiotics and steroids and is much better this morning. She does have nocturnal hypoxemiaWheezing shortness of breath and was treated empirically for COPD exacerbation is markedly better this morning Recommendations: 1. Wheezing and shortness of breath: I suspect this is multifactorial and the patient certainly could have had a viral bronchiolitis. No evidence of novel coronavirus. Would recommend a very short course of prednisone (3 to 5 days) then discontinue. Continue Spiriva for now. I do not think the patient requir es antibiotics now given the mild nature of her respiratory illnesses. 2. Nocturnal hypoxemia: Continue supplemental oxygen at night as previously prescribed. 3. Increase activity as tolerated. The patient should ambulate. The patient appears to be significantly improved from presentation and may be eligible to discharge from the hospital. She should follow-up with her primary care provider in a week. Would be happy to see her back in the pulmonary clinic however given her normal spirometry and imaging studies, I am not sure she requires aggressive therapy for obstructive lung disease at this point time. Thanks for the opportunity of assisting in the management care of this patient. Feel free to contact us with any additional pulmonary questions or concerns. We will sign off at this point time. (2) COPD (chronic obstructive pulmonary disease): COPD type: COPD with acute exacerbation Qualified Code(s): J44.1 - Chronic obstructive pulmonary disease with (acute) exacerbation (3) Hypoxemia: History of Present Illness Attending Physician: Gene Warren MD History of Present Illness Asked by the hospitalist service to evaluate this patient patient is a 77-year- old female with reported history of obstructive lung disease. She is followed by RAOUL Aviles in the pulmonary clinic and was last seen about 6 months ago. Last PFTs October 2018 were relatively normal with an FEV1 of 101% predicted and an FVC of 95% predicted with a normal ratio. Lung volumes were also normal with an isolated 69 patient states that she reported to the emergency room last evening that she felt that she may have been affected with the novel coronovirus. She reports subjective fevers and chills at home increasing shortness of breath reports coughing wheezing and sputum reduction. She has a remote history of tobacco quit smoking about 8 years ago. She does not have any ill contacts. She has been maintained in the outpatient setting on Spiriva. In the emergency room, chest x-ray was performed which was unrevealing. She had a normal white blood cell count. She was given zosyn and decadron. Pulmonary was consulted for additional managment. The patient reports that this morning she feels markedly better. Her wheezing is resolved. She has not been ambulating report significant cough or sputum Allergies Allergy/AdvReac Type Severity Reaction Status Date / Time cheese Allergy Severe anything Verified 01/17/20 22:42 with tyramine/aged caused a stroke doxycycline Allergy Severe rash Verified 01/17/20 22:42 topiramate Allergy Severe BREATHING Verified 01/17/20 22:42 PROBLEM & EYE PROBLEMS. beclomethasone [From Qvar] Allergy Intermediate swelling Verified 01/17/20 22:42 of lip adhesive Allergy Mild RASH, Verified 01/17/20 22:42 BLISTER latex Allergy Mild RASH, Verified 01/17/20 22:42 BLISTER nickel Allergy Mild Rash Verified 01/17/20 22:42 ephedrine Allergy Unknown REACTS Verified 01/17/20 22:42 WITH ANOTHER MED gabapentin AdvReac Severe rash Verified 01/17/20 22:42 albuterol AdvReac Unknown as per px Verified 01/18/20 00:52 epinephrine AdvReac Unknown reacts to Verified 01/17/20 22:42 a med levalbuterol AdvReac Unknown as per px Verified 01/18/20 00:52 Tyramine Allergy Severe WAS Uncoded 01/09/20 12:22 BELIEVED IT CAUSED A STROKE Home Medications Home Medications Medication Instructions Recorded Confirmed Type clonazepam 0.5 mg tablet 1.5 mg PO HS #60 tab 02/05/19 01/17/20 History coenzyme Q10 100 mg capsule 200 mg PO HS cap 02/05/19 01/17/20 History estradiol 0.01 % PV UD gm 02/05/19 01/17/20 History lamotrigine 200 mg tablet 200 mg PO HS tab 02/05/19 01/17/20 History levothyroxine 75 mcg tablet 75 mcg PO QAM #90 tab 02/05/19 01/17/20 History primidone 50 mg tablet 100 mg PO BIDM tab 02/05/19 01/17/20 History Lactobacillus 1 cap PO HS cap 02/07/19 01/17/20 History acidophilus-Bifidobac.animalis 2.5 billion cell capsule polyethylene glycol 3350 17 8.5 gm PO DAILY PRN 02/07/19 01/17/20 History gram/dose oral powder phenelzine 30 mg PO BID 03/19/19 01/17/20 History primidone 150 mg PO HS 03/19/19 01/17/20 History raloxifene 60 mg PO HS 03/19/19 01/17/20 History nystatin 5 ml BUCCAL QID PRN 04/11/19 01/17/20 History clonazepam 0.5 mg PO 1500 05/19/19 01/17/20 History tiotropium bromide [Spiriva 2 puff INHALATION QAM 05/19/19 01/17/20 History Respimat] calcium carbonate-vitamin D3 1 tab PO HS 10/10/19 01/17/20 History [Calcium 600 + D(3)] food supplemt, lactose-reduced 1 ea PO DAILY 01/09/20 01/17/20 History [Ensure] furosemide 20 mg PO MOWEFR 01/09/20 01/17/20 History famotidine 20 mg PO BID 01/17/20 01/17/20 History triamcinolone acetonide 1 applic TOPICAL BID 01/17/20 01/17/20 History Patient History Medical History Adrenal insufficiency Anemia Balance problem Chronic back pain COPD (chronic obstructive pulmonary disease) inhaler daily Degenerative disc disease Dystonia Ectopic atrial tachycardia no longer follows w/ cardio (used to follow w/ Dr. Gaviria) GERD (gastroesophageal reflux disease) Glaucoma Hearing deficit History of subdural hematoma 02/2019 - fall Hypothyroid Kidney stones Lung nodule Major depressive disorder (11/01/11) On home oxygen therapy 2L n/c at hs Orthostatic hypotension Osteoarthritis Osteoporosis Pancreatic mass pcp monitoring Poor memory PTSD (post-traumatic stress disorder) Recurrent falls Spinal stenosis Stroke 1983--numbness of left side of face--follows with Dr. Lopez in [facility] [place] Thoracic aortic ectasia Tremor Surgical History H/O esophagogastroduodenoscopy History of appendectomy History of bilateral cataract extraction per pt had it done twice on both eyes History of colonoscopy with polypectomy History of dilation and curettage mult History of laparotomy x2---uterine fibroids History of left heart catheterization (LHC) 2013 @ [facility]--no stents History of tonsillectomy and adenoidectomy History of tooth extraction all upper teeth/most of lower History of transesophageal echocardiography (SHAYE) S/P subdural hematoma evacuation Status post glaucoma surgery Tubal ligation status Family History Brother Family history of diabetes mellitus Family hx colonic polyps Son Family history of diabetes mellitus Aunt Family history of diabetes mellitus Uncle Family history of diabetes mellitus Mother Family hx of colon cancer Sister Family hx of colon cancer Other No family history of adverse response to anesthesia Social History Smoking Status: Former smoker Second Hand Exposure: No; Do You Dip or Chew Tobacco: No; Tobacco Cessation Education Requested by Patient: No Hx Alcohol Use: No Hx Substance Use: No Preferred Language: [place] Communication Ability: Effective Channel Turner Required: No Beliefs That Will Affect Care: None marital status: Current Living Situation: Alone current occupational status: retired Other Information That Helps Us Care for You: No Feels Safe at Home: Yes Safety Concerns: Feels Safe At This Time Results & Data Results & Data ([facility]) Vital Signs (Past 12 Hours) Vital Signs Temp Pulse Pulse Pulse Resp BP BP 01/18/20 07:19 36.7 C 72 18 105/67 01/18/20 04:44 72 01/18/20 03:02 01/18/20 02:30 36.7 C 66 20 130/76 01/18/20 01:30 63 17 148/70 H 01/18/20 01:09 63 14 01/18/20 01:00 62 17 144/69 H 01/18/20 00:57 20 01/18/20 00:31 63 22 01/18/20 00:30 62 12 154/80 H 01/18/20 00:15 63 23 01/18/20 00:10 23 01/17/20 23:31 65 21 133/69 01/17/20 23:30 65 15 01/17/20 23:15 62 24 01/17/20 23:06 66 23 01/17/20 23:01 68 24 143/55 H 01/17/20 22:29 137/88 Pulse Ox Pulse Ox 01/18/20 07:19 96 01/18/20 04:44 01/18/20 03:02 96 01/18/20 02:30 96 01/18/20 01:30 100 01/18/20 01:09 100 01/18/20 01:00 100 01/18/20 00:57 94 01/18/20 00:31 100 01/18/20 00:30 100 01/18/20 00:15 97 01/18/20 00:10 96 01/17/20 23:31 98 01/17/20 23:30 94 01/17/20 23:15 01/17/20 23:06 94 01/17/20 23:01 96 01/17/20 22:29 Laboratory Results 01/18/20 05:27 01/18/20 05:27 Diagnostic Findings Imaging was independently reviewed. The patient had a prior CT scan which did not demonstrate significant emphysematous changes. Her chest x-ray from the emergency room was reviewed and did not demonstrate any focal opacity or interstitial markings. PG Care Time/CCT Total # of Minutes Spent Total Time Spent with Patient: Total time spent is greater than 50% in coordination of care (as documented) at patient's floor/unit and/or counseling patient: Coding Level of Care Code 79416 Initial Inpt Care Lvl 2 Diagnoses Respiratory failure, acute and chronic J96.20 COPD (chronic obstructive pulmonary disease) J44.1 COPD type: COPD with acute exacerbation Hypoxemia R09.02
--- NOTE | 2020-01-18 12:31 | Hospitalist Progress Note ---
Date of Service January 18, 2020 Assessment & Plan (1) Respiratory failure, acute and chronic: hx chronic respiratory failure secondary to COPD on home O2 Initially believed to be secondary to COPD exacerbation, possible aspiration pneumonia, history esophageal dysmotility as per records Patient not septic for now. Medical telemetry Supplemental O2 Baseline ABG Augmentin, ipratropium nebs RTC (patient refusing beta agonists nebs citing unrecalled adverse reactions in the past), prednisone course Pulmonary consult Re: COPD exacerbation -per pulmonary, most likely multifactorial, possibly due to viral bronchiolitis, recommend short course of prednisone 3 to 5 days then discontinue, continue Spiriva, continue nocturnal oxygen as previously prescribed Swallow eval, aspiration precautions Acute on chronic hyponatremia Likely secondary to diuretic use, hypovolemia Possible underlying SIADH hx adrenal insufficiency/orthostatic hypotension ? 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 SCDs RE recent traumatic subdural hematoma Full code Admission and Anticipated Discharge Date Admission Date: January 18, 2020 Subjective Patient is sitting up in bed, in no acute distress. She says that she feels much better now. Says she has been feeling poorly for past several days, however now she feels better. Her cough has improved. Currently denies any fevers, chills, chest pain, abdominal pain, nausea or vomiting. Review of Systems Review of Systems: All systems reviewed & are unremarkable except as noted in HPI & below Constitutional: no fever and no chills Respiratory: + cough (Improved) and + dyspnea (Improved) Cardiovascular: no chest pain and no palpitations Gastrointestinal: no abdominal pain, no nausea and no vomiting Physical Exam Physical Exam: GENERAL: Elderly female, sitting up in bed, in no respiratory distress, chronic tremors HEENT: Normocephalic, pale palpebral conjunctivae, no ptosis, dry buccal mucosa NECK : Supple, no tenderness CHEST : Decreased breath sounds, no expiratory wheezes, rhonchi or crackles noted, no tenderness, currently breathing on room air HEART : RRR, no obvious murmurs ABDOMEN: Positive bowel sounds, soft, some distention, nontender EXTREMITIES : Minimal LE swelling (R>L) , no LE tenderness, moves extremities spontaneously SKIN: Pallor, warm, dry NEUROLOGIC : Alert and oriented x3, no facial asymmetry, speech fluent, chronic hand tremors, gait and stance not assessed Results & Data Results & Data ([facility]) Vital Signs (Past 12 Hours) Vital Signs Temp Pulse Pulse Pulse Resp BP BP 01/18/20 11:22 36.7 C 81 18 123/81 01/18/20 10:16 73 01/18/20 07:19 36.7 C 72 18 105/67 01/18/20 04:44 72 01/18/20 03:02 01/18/20 02:30 36.7 C 66 20 130/76 01/18/20 01:30 63 17 148/70 H 01/18/20 01:09 63 14 01/18/20 01:00 62 17 144/69 H 01/18/20 00:57 20 01/18/20 00:31 63 22 Pulse Ox Pulse Ox 01/18/20 11:22 92 01/18/20 10:16 01/18/20 07:19 96 01/18/20 04:44 01/18/20 03:02 96 01/18/20 02:30 96 01/18/20 01:30 100 01/18/20 01:09 100 01/18/20 01:00 100 01/18/20 00:57 94 01/18/20 00:31 100 Laboratory Results 01/18/20 01/18/20 01/18/20 Range/Units 09:58 05:27 05:27 WBC 4.33 L (4.8-10.8) K/uL RBC 3.60 L (4.2-5.4) M/uL Hgb 10.6 L (12.0-16.0) g/dL Hct 32.8 L (37-47) % MCV 91.1 (80-100) fL MCH 29.4 (25-34) pg MCHC 32.3 (32-36) g/dL RDW Std Deviation 41.6 (36.4-46.3) fL RDW Coeff of Paul 12.3 (11.5-14.5) % Plt Count 294 (130-400) K/uL MPV 9.6 (7.4-10.4) fL Immature Gran % (Auto) 0.0 % Neut % (Auto) 86.0 % Lymph % (Auto) 11.5 % Kimble % (Auto) 1.8 % Eos % (Auto) 0.5 % Baso % (Auto) 0.2 % Neut # (Auto) 3.72 (1.4-6.5) K/uL Lymph # (Auto) 0.50 L (1.2-3.4) K/uL [place] # (Auto) 0.08 L (0.11-0.59) K/uL Eos # (Auto) 0.02 (0-0.5) K/uL Baso # (Auto) 0.01 (0-0.2) K/uL Immature Gran # (Auto) 0.00 (0.00-0.02) K/uL PT (9.0-12.0) Seconds INR (0.9-1.1) APTT (21.0-31.0) Seconds PTT Ratio D-Dimer (0-500) ug/L FEU ABG pH (7.35-7.45) ABG pCO2 (35-46) mmHg ABG pO2 (80-95) mmHg ABG HCO3 (19-24) mmol/L ABG O2 Saturation (90-95) % ABG Base Excess (-9-1.8) mEq/L Gregg Test (Pos) Barometric Pressure mm/Hg Oxygen Given Sodium 134 L 135 L D (136-145) mmol/L Potassium 3.9 (3.5-5.1) mmol/L Chloride 101 (98-107) mmol/L Carbon Dioxide 25 (21-32) mmol/L Anion Gap 9.0 (3-11) BUN 8 (7-18) mg/dl Creatinine 0.61 (0.6-1.2) mg/dl Est Cr Clr Drug Dosing 73.1 ml/min Est GFR ( Amer) 106.5 Est GFR (Non-Af Amer) 91.9 BUN/Creatinine Ratio 12.5 (10-20) Glucose 138 H (70-99) mg/dl Osmolality (280-300) mOsm/kg Lactate (0.4-2.0) mmol/L Calcium 8.6 (8.5-10.1) mg/dl Magnesium (1.8-2.4) mg/dl Total Bilirubin (0.2-1) mg/dl AST (15-37) U/L ALT (12-78) U/L Alkaline Phosphatase (45-117) U/L Troponin I (0-0.045) ng/ml Total Protein (6.4-8.2) gm/dl Albumin (3.4-5.0) gm/dl Globulin (2.5-4.0) gm/dl Albumin/Globulin Ratio (0.9-2) TSH (0.300-4.500) uIu/ml Free T4 (0.8-1.6) ng/dl Urine Color Urine Appearance (Clear) Urine pH (4.5-7.5) Ur Specific [place] (1.000-1.030) Urine Protein (Negative) Urine Glucose (UA) (Negative) Urine Ketones (Negative) Urine Blood (Negative) Urine Nitrite (Negative) Urine Bilirubin (Negative) Urine Urobilinogen (Negative) Ur Leukocyte Esterase (Negative) Urine Osmolality (500-800) mOsm/kg Ur Random Sodium mmol/L Adenovirus (PCR) (NotDetected) B. pertussis DNA (PCR) (NotDetected) B.parapertussis DNA PCR (NotDetected) C. pneumoniae DNA (PCR) (NotDetected) Coronavirus OC43 (PCR) (NotDetected) Coronavirus HKU1 (PCR) (NotDetected) Coronavirus 229E (PCR) (NotDetected) COVID-19 Eval Order COVID-19 PCR (Negative) Coronavirus NL63 (PCR) (NotDetected) Human Metapneumovir PCR (NotDetected) Influenza Type A (PCR) (NotDetected) Influenza Type B (PCR) (NotDetected) M. pneumoniae (PCR) (NotDetected) Parainfluenza 1 (PCR) (NotDetected) Parainfluenza 2 (PCR) (NotDetected) Parainfluenza 3 (PCR) (NotDetected) Parainfluenza 4 (PCR) (NotDetected) RSV (PCR) (NotDetected) Entero/Rhino (PCR) (NotDetected) 01/18/20 01/18/20 01/18/20 Range/Units 01:59 00:05 00:05 WBC (4.8-10.8) K/uL RBC (4.2-5.4) M/uL Hgb (12.0-16.0) g/dL Hct (37-47) % MCV (80-100) fL MCH (25-34) pg MCHC (32-36) g/dL RDW Std Deviation (36.4-46.3) fL RDW Coeff of Paul (11.5-14.5) % Plt Count (130-400) K/uL MPV (7.4-10.4) fL Immature Gran % (Auto) % Neut % (Auto) % Lymph % (Auto) % [place] % (Auto) % Eos % (Auto) % Baso % (Auto) % Neut # (Auto) (1.4-6.5) K/uL Lymph # (Auto) (1.2-3.4) K/uL [place] # (Auto) (0.11-0.59) K/uL Eos # (Auto) (0-0.5) K/uL Baso # (Auto) (0-0.2) K/uL Immature Gran # (Auto) (0.00-0.02) K/uL PT (9.0-12.0) Seconds INR (0.9-1.1) APTT (21.0-31.0) Seconds PTT Ratio D-Dimer (0-500) ug/L FEU ABG pH 7.37 (7.35-7.45) ABG pCO2 47 H (35-46) mmHg ABG pO2 96 H (80-95) mmHg ABG HCO3 27 H (19-24) mmol/L ABG O2 Saturation 97.1 H (90-95) % ABG Base Excess 0.9 (-9-1.8) mEq/L Gregg Test Pos (Pos) Barometric Pressure 729.0 mm/Hg Oxygen Given 2L Sodium (136-145) mmol/L Potassium (3.5-5.1) mmol/L Chloride (98-107) mmol/L Carbon Dioxide (21-32) mmol/L Anion Gap (3-11) BUN (7-18) mg/dl Creatinine (0.6-1.2) mg/dl Est Cr Clr Drug Dosing ml/min Est GFR ( Amer) Est GFR (Non-Af Amer) BUN/Creatinine Ratio (10-20) Glucose (70-99) mg/dl Osmolality (280-300) mOsm/kg Lactate (0.4-2.0) mmol/L Calcium (8.5-10.1) mg/dl Magnesium (1.8-2.4) mg/dl Total Bilirubin (0.2-1) mg/dl AST (15-37) U/L ALT (12-78) U/L Alkaline Phosphatase (45-117) U/L Troponin I (0-0.045) ng/ml Total Protein (6.4-8.2) gm/dl Albumin (3.4-5.0) gm/dl Globulin (2.5-4.0) gm/dl Albumin/Globulin Ratio (0.9-2) TSH (0.300-4.500) uIu/ml Free T4 (0.8-1.6) ng/dl Urine Color Urine Appearance (Clear) Urine pH (4.5-7.5) Ur Specific [place] (1.000-1.030) Urine Protein (Negative) Urine Glucose (UA) (Negative) Urine Ketones (Negative) Urine Blood (Negative) Urine Nitrite (Negative) Urine Bilirubin (Negative) Urine Urobilinogen (Negative) Ur Leukocyte Esterase (Negative) Urine Osmolality (500-800) mOsm/kg Ur Random Sodium mmol/L Adenovirus (PCR) Not Detected (NotDetected) B. pertussis DNA (PCR) Not Detected (NotDetected) B.parapertussis DNA PCR Not Detected (NotDetected) C. pneumoniae DNA (PCR) Not Detected (NotDetected) Coronavirus OC43 (PCR) Not Detected (NotDetected) Coronavirus HKU1 (PCR) Not Detected (NotDetected) Coronavirus 229E (PCR) Not Detected (NotDetected) COVID-19 Eval Order Covid19 Done at [facility] COVID-19 PCR NEGATIVE (Negative) Coronavirus NL63 (PCR) Not Detected (NotDetected) Human Metapneumovir PCR Not Detected (NotDetected) Influenza Type A (PCR) Not Detected (NotDetected) Influenza Type B (PCR) Not Detected (NotDetected) M. pneumoniae (PCR) Not Detected (NotDetected) Parainfluenza 1 (PCR) Not Detected (NotDetected) Parainfluenza 2 (PCR) Not Detected (NotDetected) Parainfluenza 3 (PCR) Not Detected (NotDetected) Parainfluenza 4 (PCR) Not Detected (NotDetected) RSV (PCR) Not Detected (NotDetected) Entero/Rhino (PCR) Not Detected (NotDetected) 01/17/20 01/17/20 01/17/20 Range/Units 22:44 22:44 22:44 WBC (4.8-10.8) K/uL RBC (4.2-5.4) M/uL Hgb (12.0-16.0) g/dL Hct (37-47) % MCV (80-100) fL MCH (25-34) pg MCHC (32-36) g/dL RDW Std Deviation (36.4-46.3) fL RDW Coeff of Paul (11.5-14.5) % Plt Count (130-400) K/uL MPV (7.4-10.4) fL Immature Gran % (Auto) % Neut % (Auto) % Lymph % (Auto) % [place]ble % (Auto) % Eos % (Auto) % Baso % (Auto) % Neut # (Auto) (1.4-6.5) K/uL Lymph # (Auto) (1.2-3.4) K/uL [place] # (Auto) (0.11-0.59) K/uL Eos # (Auto) (0-0.5) K/uL Baso # (Auto) (0-0.2) K/uL Immature Gran # (Auto) (0.00-0.02) K/uL PT (9.0-12.0) Seconds INR (0.9-1.1) APTT (21.0-31.0) Seconds PTT Ratio D-Dimer (0-500) ug/L FEU ABG pH (7.35-7.45) ABG pCO2 (35-46) mmHg ABG pO2 (80-95) mmHg ABG HCO3 (19-24) mmol/L ABG O2 Saturation (90-95) % ABG Base Excess (-9-1.8) mEq/L Gregg Test (Pos) Barometric Pressure mm/Hg Oxygen Given Sodium (136-145) mmol/L Potassium (3.5-5.1) mmol/L Chloride (98-107) mmol/L Carbon Dioxide (21-32) mmol/L Anion Gap (3-11) BUN (7-18) mg/dl Creatinine (0.6-1.2) mg/dl Est Cr Clr Drug Dosing ml/min Est GFR ( Amer) Est GFR (Non-Af Amer) BUN/Creatinine Ratio (10-20) Glucose (70-99) mg/dl Osmolality 269 L (280-300) mOsm/kg Lactate 0.5 (0.4-2.0) mmol/L Calcium (8.5-10.1) mg/dl Magnesium (1.8-2.4) mg/dl Total Bilirubin (0.2-1) mg/dl AST (15-37) U/L ALT (12-78) U/L Alkaline Phosphatase (45-117) U/L Troponin I (0-0.045) ng/ml Total Protein (6.4-8.2) gm/dl Albumin (3.4-5.0) gm/dl Globulin (2.5-4.0) gm/dl Albumin/Globulin Ratio (0.9-2) TSH (0.300-4.500) uIu/ml Free T4 (0.8-1.6) ng/dl Urine Color Yellow Urine Appearance Clear (Clear) Urine pH 8.5 H (4.5-7.5) Ur Specific [place] 1.006 (1.000-1.030) Urine Protein Negative (Negative) Urine Glucose (UA) Negative (Negative) Urine Ketones Negative (Negative) Urine Blood Negative (Negative) Urine Nitrite Negative (Negative) Urine Bilirubin Negative (Negative) Urine Urobilinogen Negative (Negative) Ur Leukocyte Esterase Negative (Negative) Urine Osmolality (500-800) mOsm/kg Ur Random Sodium mmol/L Adenovirus (PCR) (NotDetected) B. pertussis DNA (PCR) (NotDetected) B.parapertussis DNA PCR (NotDetected) C. pneumoniae DNA (PCR) (NotDetected) Coronavirus OC43 (PCR) (NotDetected) Coronavirus HKU1 (PCR) (NotDetected) Coronavirus 229E (PCR) (NotDetected) COVID-19 Eval Order COVID-19 PCR (Negative) Coronavirus NL63 (PCR) (NotDetected) Human Metapneumovir PCR (NotDetected) Influenza Type A (PCR) (NotDetected) Influenza Type B (PCR) (NotDetected) M. pneumoniae (PCR) (NotDetected) Parainfluenza 1 (PCR) (NotDetected) Parainfluenza 2 (PCR) (NotDetected) Parainfluenza 3 (PCR) (NotDetected) Parainfluenza 4 (PCR) (NotDetected) RSV (PCR) (NotDetected) Entero/Rhino (PCR) (NotDetected) 01/17/20 01/17/20 01/17/20 Range/Units 22:44 22:44 22:44 WBC 5.18 (4.8-10.8) K/uL RBC 3.43 L (4.2-5.4) M/uL Hgb 10.2 L (12.0-16.0) g/dL Hct 30.3 L (37-47) % MCV 88.3 (80-100) fL MCH 29.7 (25-34) pg MCHC 33.7 (32-36) g/dL RDW Std Deviation 39.2 (36.4-46.3) fL RDW Coeff of Paul 12.2 (11.5-14.5) % Plt Count 292 (130-400) K/uL MPV 9.7 (7.4-10.4) fL Immature Gran % (Auto) 0.0 % Neut % (Auto) 58.9 % Lymph % (Auto) 28.2 % Kimble % (Auto) 8.1 % Eos % (Auto) 4.6 % Baso % (Auto) 0.2 % Neut # (Auto) 3.05 (1.4-6.5) K/uL Lymph # (Auto) 1.46 (1.2-3.4) K/uL [place] # (Auto) 0.42 (0.11-0.59) K/uL Eos # (Auto) 0.24 (0-0.5) K/uL Baso # (Auto) 0.01 (0-0.2) K/uL Immature Gran # (Auto) 0.00 (0.00-0.02) K/uL PT 10.7 (9.0-12.0) Seconds INR 1.0 (0.9-1.1) APTT 27.2 (21.0-31.0) Seconds PTT Ratio 1.0 D-Dimer 360 (0-500) ug/L FEU ABG pH (7.35-7.45) ABG pCO2 (35-46) mmHg ABG pO2 (80-95) mmHg ABG HCO3 (19-24) mmol/L ABG O2 Saturation (90-95) % ABG Base Excess (-9-1.8) mEq/L Gregg Test (Pos) Barometric Pressure mm/Hg Oxygen Given Sodium 127 L (136-145) mmol/L Potassium 3.7 (3.5-5.1) mmol/L Chloride 93 L (98-107) mmol/L Carbon Dioxide 26 (21-32) mmol/L Anion Gap 8.0 (3-11) BUN 9 (7-18) mg/dl Creatinine 0.58 L (0.6-1.2) mg/dl Est Cr Clr Drug Dosing 82.5 ml/min Est GFR ( Amer) 108.2 Est GFR (Non-Af Amer) 93.4 BUN/Creatinine Ratio 15.2 (10-20) Glucose 85 (70-99) mg/dl Osmolality (280-300) mOsm/kg Lactate (0.4-2.0) mmol/L Calcium 8.0 L (8.5-10.1) mg/dl Magnesium 2.3 (1.8-2.4) mg/dl Total Bilirubin 0.2 (0.2-1) mg/dl AST 26 (15-37) U/L ALT 20 (12-78) U/L Alkaline Phosphatase 50 (45-117) U/L Troponin I < 0.015 (0-0.045) ng/ml Total Protein 7.1 (6.4-8.2) gm/dl Albumin 3.4 (3.4-5.0) gm/dl Globulin 3.7 (2.5-4.0) gm/dl Albumin/Globulin Ratio 0.9 (0.9-2) TSH 11.100 H (0.300-4.500) uIu/ml Free T4 0.80 (0.8-1.6) ng/dl Urine Color Urine Appearance (Clear) Urine pH (4.5-7.5) Ur Specific [place] (1.000-1.030) Urine Protein (Negative) Urine Glucose (UA) (Negative) Urine Ketones (Negative) Urine Blood (Negative) Urine Nitrite (Negative) Urine Bilirubin (Negative) Urine Urobilinogen (Negative) Ur Leukocyte Esterase (Negative) Urine Osmolality (500-800) mOsm/kg Ur Random Sodium mmol/L Adenovirus (PCR) (NotDetected) B. pertussis DNA (PCR) (NotDetected) B.parapertussis DNA PCR (NotDetected) C. pneumoniae DNA (PCR) (NotDetected) Coronavirus OC43 (PCR) (NotDetected) Coronavirus HKU1 (PCR) (NotDetected) Coronavirus 229E (PCR) (NotDetected) COVID-19 Eval Order COVID-19 PCR (Negative) Coronavirus NL63 (PCR) (NotDetected) Human Metapneumovir PCR (NotDetected) Influenza Type A (PCR) (NotDetected) Influenza Type B (PCR) (NotDetected) M. pneumoniae (PCR) (NotDetected) Parainfluenza 1 (PCR) (NotDetected) Parainfluenza 2 (PCR) (NotDetected) Parainfluenza 3 (PCR) (NotDetected) Parainfluenza 4 (PCR) (NotDetected) RSV (PCR) (NotDetected) Entero/Rhino (PCR) (NotDetected) 01/17/20 01/17/20 Range/Units 22:14 22:14 WBC (4.8-10.8) K/uL RBC (4.2-5.4) M/uL Hgb (12.0-16.0) g/dL Hct (37-47) % MCV (80-100) fL MCH (25-34) pg MCHC (32-36) g/dL RDW Std Deviation (36.4-46.3) fL RDW Coeff of Paul (11.5-14.5) % Plt Count (130-400) K/uL MPV (7.4-10.4) fL Immature Gran % (Auto) % Neut % (Auto) % Lymph % (Auto) % [place] % (Auto) % Eos % (Auto) % Baso % (Auto) % Neut # (Auto) (1.4-6.5) K/uL Lymph # (Auto) (1.2-3.4) K/uL [place] # (Auto) (0.11-0.59) K/uL Eos # (Auto) (0-0.5) K/uL Baso # (Auto) (0-0.2) K/uL Immature Gran # (Auto) (0.00-0.02) K/uL PT (9.0-12.0) Seconds INR (0.9-1.1) APTT (21.0-31.0) Seconds PTT Ratio D-Dimer (0-500) ug/L FEU ABG pH (7.35-7.45) ABG pCO2 (35-46) mmHg ABG pO2 (80-95) mmHg ABG HCO3 (19-24) mmol/L ABG O2 Saturation (90-95) % ABG Base Excess (-9-1.8) mEq/L Gregg Test (Pos) Barometric Pressure mm/Hg Oxygen Given Sodium (136-145) mmol/L Potassium (3.5-5.1) mmol/L Chloride (98-107) mmol/L Carbon Dioxide (21-32) mmol/L Anion Gap (3-11) BUN (7-18) mg/dl Creatinine (0.6-1.2) mg/dl Est Cr Clr Drug Dosing ml/min Est GFR ( Amer) Est GFR (Non-Af Amer) BUN/Creatinine Ratio (10-20) Glucose (70-99) mg/dl Osmolality (280-300) mOsm/kg Lactate (0.4-2.0) mmol/L Calcium (8.5-10.1) mg/dl Magnesium (1.8-2.4) mg/dl Total Bilirubin (0.2-1) mg/dl AST (15-37) U/L ALT (12-78) U/L Alkaline Phosphatase (45-117) U/L Troponin I (0-0.045) ng/ml Total Protein (6.4-8.2) gm/dl Albumin (3.4-5.0) gm/dl Globulin (2.5-4.0) gm/dl Albumin/Globulin Ratio (0.9-2) TSH (0.300-4.500) uIu/ml Free T4 (0.8-1.6) ng/dl Urine Color Urine Appearance (Clear) Urine pH (4.5-7.5) Ur Specific [place] (1.000-1.030) Urine Protein (Negative) Urine Glucose (UA) (Negative) Urine Ketones (Negative) Urine Blood (Negative) Urine Nitrite (Negative) Urine Bilirubin (Negative) Urine Urobilinogen (Negative) Ur Leukocyte Esterase (Negative) Urine Osmolality 138 L (500-800) mOsm/kg Ur Random Sodium 28 mmol/L Adenovirus (PCR) (NotDetected) B. pertussis DNA (PCR) (NotDetected) B.parapertussis DNA PCR (NotDetected) C. pneumoniae DNA (PCR) (NotDetected) Coronavirus OC43 (PCR) (NotDetected) Coronavirus HKU1 (PCR) (NotDetected) Coronavirus 229E (PCR) (NotDetected) COVID-19 Eval Order COVID-19 PCR (Negative) Coronavirus NL63 (PCR) (NotDetected) Human Metapneumovir PCR (NotDetected) Influenza Type A (PCR) (NotDetected) Influenza Type B (PCR) (NotDetected) M. pneumoniae (PCR) (NotDetected) Parainfluenza 1 (PCR) (NotDetected) Parainfluenza 2 (PCR) (NotDetected) Parainfluenza 3 (PCR) (NotDetected) Parainfluenza 4 (PCR) (NotDetected) RSV (PCR) (NotDetected) Entero/Rhino (PCR) (NotDetected) Medications Administered Current Inpatient Medications Acetaminophen (Acetaminophen 325 Mg Tab) 650 mg PO Q4H PRN PRN Reason: Pain or Fever Stop: 02/17/20 03:01 Amoxicillin/Clavulanate Potassium (Amoxicillin/Clavulanate 875 Mg Tab) 1 tab PO BIDM [facility]; Protocol Stop: 01/25/20 07:59 Last Admin: 01/18/20 08:12 Dose: 1 tab Documented by: Clonazepam (Clonazepam 0.5 Mg Tab) 1.5 mg PO HS [facility] Stop: 02/17/20 20:59 Clonazepam (Clonazepam 0.5 Mg Tab) 0.5 mg PO 1500 [facility] Stop: 02/17/20 14:59 Famotidine (Famotidine 20 Mg Tab) 20 mg PO BID [facility] Stop: 02/17/20 08:59 Last Admin: 01/18/20 08:12 Dose: 20 mg Documented by: Guaifenesin (Guaifenesin 600 Mg Tabcr) 600 mg PO Q12 [facility] Stop: 02/17/20 03:01 Last Admin: 01/18/20 08:13 Dose: Not Given Documented by: Promethazine HCl 12.5 mg/ (Sodium Chloride) 50.5 mls @ 202 mls/hr IV Q6H PRN PRN Reason: Nausea And Vomiting Stop: 02/17/20 03:01 Ipratropium [place] (Ipratropium [place] Neb Soln 0.02% 2.5 Ml Vial) 0.5 mg INH Q6H PRN PRN Reason: sob wheeze Stop: 02/17/20 06:59 Lamotrigine (Lamotrigine 100 Mg Tab) 200 mg PO HS [facility] Stop: 02/17/20 20:59 Levothyroxine Sodium (Levothyroxine Sodium 75 Mcg Tablet) 75 mcg PO DAILYBB [facility] Stop: 02/17/20 06:29 Last Admin: 01/18/20 06:00 Dose: 75 mcg Documented by: Miscellaneous (Phenelzine~Order Awaiting Action) 1 ea N/A QS [facility] Stop: 02/17/20 03:44 Last Admin: 01/18/20 08:14 Dose: Not Given Documented by: Miscellaneous Information (Augmentin~Pharmacy Consult In Progress) 1 ea N/A UD PRN PRN Reason: Consult Stop: 02/17/20 03:23 Oxycodone HCl (Oxycodone Hcl Ir 5 Mg Tab (Immediate Release)) 5 mg PO Q4H PRN PRN Reason: Pain Stop: 02/01/20 03:01 Polyethylene Glycol (Polyethylene (Miralax) 17 Gm Pack) 8.5 gm PO DAILY PRN PRN Reason: Constipation Stop: 02/17/20 03:01 Prednisone (Prednisone 20 Mg Tab) 40 mg PO DAILY [facility] Stop: 01/22/20 08:59 Last Admin: 01/18/20 08:12 Dose: 40 mg Documented by: Primidone (Primidone 50 Mg Tab) 100 mg PO BIDM [facility] Stop: 02/17/20 07:59 Last Admin: 01/18/20 08:12 Dose: 100 mg Documented by: Primidone (Primidone 50 Mg Tab) 150 mg PO HS [facility] Stop: 02/17/20 20:59
[2020-01-18] MEDS ORDERED: clonazePAM 0.5 MG TAB PO SCH ×2 (15:00→21:00)
[2020-01-18] MEDS: ACETAMINOPHEN 325 MG TAB PO PRN (20:55)
[2020-01-18] MEDS ORDERED: lamoTRIgine 100 MG TAB PO SCH (21:00)
[2020-01-18] MEDS ORDERED: PRIMIDONE 50 MG TAB PO SCH (21:00)
[2020-01-18] MEDS ORDERED: [UNRECOGNIZED DRUG - OTHER] PO SCH (21:00)
[2020-01-19] MEDS: LEVOTHYROXINE SODIUM 75 MCG TABLET PO SCH (06:24)
[2020-01-19] MEDS ORDERED: PHENELZINE SULFATE PO SCH (09:00)
--- NOTE | 2020-01-19 09:04 | Hospitalist Progress Note ---
Date of Service January 19, 2020 Assessment & Plan (1) Respiratory failure, acute and chronic: hx chronic respiratory failure secondary to COPD on home O2 Initially believed to be secondary to COPD exacerbation, possible aspiration pneumonia, history esophageal dysmotility as per records Patient not septic. Medical telemetry Supplemental O2 Baseline ABG Augmentin, ipratropium nebs RTC (patient refusing beta agonists nebs citing unrecalled adverse reactions in the past), prednisone course Swallow eval, aspiration precautions Pulmonary consult Re: COPD exacerbation - per pulmonary, most likely multifactorial, possibly due to viral bronchiolitis, recommend short course of p rednisone 3 to 5 days then discontinue, continue Spiriva, continue nocturnal oxygen as previously prescribed, no need for antibiotics Not likely due to aspiration, patient was evaluated by speech therapy, recommend moist foods, and sitting upright when eating and taking small bites Acute on chronic hyponatremia Likely secondary to diuretic use, hypovolemia Possible underlying SIADH hx adrenal insufficiency/orthostatic hypotension ? 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 SCDs RE recent traumatic subdural hematoma Full code Admission and Anticipated Discharge Date Admission Date: January 18, 2020 Subjective Patient is sitting up in bed, in no acute distress. She says that she feels much better now. Says she has been feeling poorly for past several days prior to coming to hospital, however now she feels better. Her cough has improved. Currently denies any fevers, chills, chest pain, abdominal pain, nausea or vomiting. Review of Systems Review of Systems: All systems reviewed & are unremarkable except as noted in HPI & below Constitutional: no fever and no chills Respiratory: + cough (Improved); no dyspnea Cardiovascular: no chest pain and no palpitations Gastrointestinal: no abdominal pain, no nausea and no vomiting Physical Exam Physical Exam: GENERAL: Elderly female, sitting up in bed, in no respiratory distress, chronic tremors HEENT: Normocephalic, pale palpebral conjunctivae, no ptosis, dry buccal mucosa NECK : Supple, no tenderness CHEST : Decreased breath sounds, no expiratory wheezes, rhonchi or crackles noted, no tenderness, currently breathing on room air, occasional dry cough HEART : RRR, no obvious murmurs ABDOMEN: Positive bowel sounds, soft, some distention, nontender EXTREMITIES : Minimal LE swelling, no LE tenderness, moves extremities spontaneously SKIN: Pallor, warm, dry NEUROLOGIC : Alert and oriented x3, no facial asymmetry, speech fluent, chronic hand tremors, gait and stance not assessed Results & Data Results & Data ([facility]) Vital Signs (Past 12 Hours) Vital Signs Temp Pulse Pulse Resp BP BP Pulse Ox 01/19/20 07:54 81 01/19/20 07:00 36.9 C 71 16 108/71 90 01/19/20 04:41 37.2 C 82 20 115/65 92 01/19/20 00:17 36.9 C 74 18 124/68 97 01/18/20 23:18 82 01/18/20 21:18 37.1 C 90 16 112/73 93 Laboratory Results 01/18/20 01/18/20 Range/Units 15:50 09:58 Sodium 133 L 134 L (136-145) mmol/L Medications Administered Current Inpatient Medications Acetaminophen (Acetaminophen 325 Mg Tab) 650 mg PO Q4H PRN PRN Reason: Pain or Fever Stop: 02/17/20 03:01 Last Admin: 01/18/20 20:55 Dose: 650 mg Documented by: Amoxicillin/Clavulanate Potassium (Amoxicillin/Clavulanate 875 Mg Tab) 1 tab PO BIDM [facility]; Protocol Stop: 01/25/20 07:59 Last Admin: 01/18/20 17:12 Dose: 1 tab Documented by: Clonazepam (Clonazepam 0.5 Mg Tab) 1.5 mg PO HS [facility] Stop: 02/17/20 20:59 Last Admin: 01/18/20 20:56 Dose: 1.5 mg Documented by: Clonazepam (Clonazepam 0.5 Mg Tab) 0.5 mg PO 1500 [facility] Stop: 02/17/20 14:59 Last Admin: 01/18/20 14:36 Dose: 0.5 mg Documented by: Famotidine (Famotidine 20 Mg Tab) 20 mg PO BID [facility] Stop: 02/17/20 08:59 Last Admin: 01/18/20 20:56 Dose: 20 mg Documented by: Guaifenesin (Guaifenesin 600 Mg Tabcr) 600 mg PO Q12 [facility] Stop: 02/17/20 03:01 Last Admin: 01/18/20 20:56 Dose: 600 mg Documented by: Promethazine HCl 12.5 mg/ (Sodium Chloride) 50.5 mls @ 202 mls/hr IV Q6H PRN PRN Reason: Nausea And Vomiting Stop: 02/17/20 03:01 Ipratropium [place] (Ipratropium [place] Neb Soln 0.02% 2.5 Ml Vial) 0.5 mg INH Q6H PRN PRN Reason: sob wheeze Stop: 02/17/20 06:59 Lamotrigine (Lamotrigine 100 Mg Tab) 200 mg PO HS [facility] Stop: 02/17/20 20:59 Last Admin: 01/18/20 20:56 Dose: 200 mg Documented by: Levothyroxine Sodium (Levothyroxine Sodium 75 Mcg Tablet) 75 mcg PO DAILYBB [facility] Stop: 02/17/20 06:29 Last Admin: 01/19/20 06:24 Dose: 75 mcg Documented by: Miscellaneous Information (Augmentin~Pharmacy Consult In Progress) 1 ea N/A UD PRN PRN Reason: Consult Stop: 02/17/20 03:23 Oxycodone HCl (Oxycodone Hcl Ir 5 Mg Tab (Immediate Release)) 5 mg PO Q4H PRN PRN Reason: Pain Stop: 02/01/20 03:01 Phenelzine Sulfate (Phenelzine Sulfate) 1 ea PO 0900,1400 [facility] Stop: 02/18/20 08:59 Polyethylene Glycol (Polyethylene (Miralax) 17 Gm Pack) 8.5 gm PO DAILY PRN PRN Reason: Constipation Stop: 02/17/20 03:01 Prednisone (Prednisone 20 Mg Tab) 40 mg PO DAILY [facility] Stop: 01/22/20 08:59 Last Admin: 01/18/20 08:12 Dose: 40 mg Documented by: Primidone (Primidone 50 Mg Tab) 100 mg PO BIDM [facility] Stop: 02/17/20 07:59 Last Admin: 01/18/20 17:12 Dose: 100 mg Documented by: Primidone (Primidone 50 Mg Tab) 150 mg PO HS [facility] Stop: 02/17/20 20:59 Last Admin: 01/18/20 20:56 Dose: 150 mg Documented by:
--- NOTE | 2020-01-19 09:19 | Discharge Summary ---
Date of Service January 19, 2020 Admission HPI Per Admitting Provider History obtained from patient and records. Medical history significant for Medical history significant for chronic respiratory failure secondary to COPD on home O2, CVA, hx PVD, recent subdural hematoma status post surgery (2018), mood disorder, chronic hyponatremia, chronic anemia (baseline hemoglobin 10), hypothyroidism, movement DSO on Mysoline, orthostatic hypotension /hx adrenal insufficiency as per records, esophageal dysmotility as per records for dysfunction, past tobacco abuse. Patient admitted at [facility] April 2019 for traumatic subdural hematomae with midline shift secondary to fall sp right middle meningeal artery particle and coil embolization. Repeat CT head outpatient November 2019 showed near complete resolution of right subdural hematoma. No need to follow-up with [facility] neurosurgeon as per documentation. Patient seen at PCPs office 2 months ago for bilateral leg swelling with inconsistent shortness of breath. Outpatient TTE showed normal LVEF, grade diastolic dysfunction. Outpatient BNP was normal. Patient evaluated by [facility] outpatient for lower extremity edema following with referral last month. Lasix 20 mg 3 times a week (MWF) trial recommended for localized edema findings. Some improvement of leg swelling as per patient. Last 3 days patient feeling sick, nauseous with low-grade fever at home, appetite not too good. Dry to junky cough different from usual. No chest pain. Worsening shortness of breath. Choking symptoms with meals from time to time. No known COVID-19 sick contacts. No unusual headaches, abdominal pain. At the ER, patient received Zosyn, Decadron for COPD exacerbation secondary to possible pneumonia right At some point, O2 sats noted to be 80s on room air at the ER. MED hx as above : SURGERIES: She has had appendectomy, tubal ligation, tonsillectomy and adenoidectomy, vascular procedures, cataract surgeries, eyelid surgery, fibroid removal, dental surgery FAMILY HISTORY: Parkinson DSE, stomach cancer, heart disease PERSONAL AND SOCIAL HISTORY: Past tobacco abuse. Occasional EtOH intake. 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 Admission Exam Per Admitting Provider GENERAL: Comfortable, no respiratory distress, chronic head tremors SKIN: Pallor, warm HEENT: Pale palpebral conjunctivae, no ptosis, dry buccal mucosa, nasal cannula in place NECK : Supple, no tenderness CHEST : Decreased breath sounds, occasional expiratory wheezes, no tenderness HEART : RRR, no obvious murmurs ABDOMEN: Some distention, nontender EXTREMITIES : Minimal LE swelling (R>L) , no LE tenderness, no other conspicuous deformities noted NEUROLOGIC : Coherent, no facial asymmetry, chronic hand tremors, gait and stance not assessed Principal Diagnosis Acute on chronic respiratory failure likely secondary to viral bronchiolitis Hyponatremia Discharge Exam GENERAL: Elderly female, sitting up in bed, in no respiratory distress, chronic tremors HEENT: Normocephalic, pale palpebral conjunctivae, no ptosis, dry buccal mucosa NECK : Supple, no tenderness CHEST : Decreased breath sounds, no expiratory wheezes, rhonchi or crackles noted, no tenderness, currently breathing on room air, occasional dry cough HEART : RRR, no obvious murmurs ABDOMEN: Positive bowel sounds, soft, some distention, nontender EXTREMITIES : Minimal LE swelling, no LE tenderness, moves extremities spontaneously SKIN: Pallor, warm, dry NEUROLOGIC : Alert and oriented x3, no facial asymmetry, speech fluent, chronic hand tremors, gait and stance not assessed Discharge Data Allergies Allergy/AdvReac Type Severity Reaction Status Date / Time cheese Allergy Severe anything Verified 01/17/20 22:42 with tyramine/aged caused a stroke doxycycline Allergy Severe rash Verified 01/17/20 22:42 topiramate Allergy Severe BREATHING Verified 01/17/20 22:42 PROBLEM & EYE PROBLEMS. beclomethasone [From Qvar] Allergy Intermediate swelling Verified 01/17/20 22:42 of lip adhesive Allergy Mild RASH, Verified 01/17/20 22:42 BLISTER latex Allergy Mild RASH, Verified 01/17/20 22:42 BLISTER nickel Allergy Mild Rash Verified 01/17/20 22:42 ephedrine Allergy Unknown REACTS Verified 01/17/20 22:42 WITH ANOTHER MED gabapentin AdvReac Severe rash Verified 01/17/20 22:42 albuterol AdvReac Unknown as per px Verified 01/18/20 00:52 epinephrine AdvReac Unknown reacts to Verified 01/17/20 22:42 a med levalbuterol AdvReac Unknown as per px Verified 01/18/20 00:52 Tyramine Allergy Severe WAS Uncoded 01/09/20 12:22 BELIEVED IT CAUSED A STROKE Consultations 01/17/20 23:35 ED Decision to Admit Stat 01/18/20 03:02 Consult Pulmonology Routine Hospital Course (1) Respiratory failure, acute and chronic: Reportedly hx chronic respiratory failure secondary to COPD on home O2 Initially believed to be secondary to COPD exacerbation, possible aspiration pneumonia, history esophageal dysmotility as per records Patient not septic. Medical telemetry Supplemental O2 Baseline ABG Augmentin, ipratropium nebs RTC (patient refusing beta agonists nebs citing unrecalled adverse reactions in the past), prednisone course Swallow eval, aspiration precautions Pulmonary consult Re: COPD exacerbation - per pulmonary medicine, most likely multifactorial, possibly due to viral bronchiolitis, recommend short course of prednisone 3 to 5 days then discontinue, continue Spiriva, continue nocturnal oxygen as previously prescribed, no need for antibiotics Not likely due to aspiration, patient was evaluated by speech therapy, recommend moist foods, and sitting upright when eating and taking small bites Acute on chronic hyponatremia Likely secondary to diuretic use, hypovolemia Possible underlying SIADH hx adrenal insufficiency/orthostatic hypotension ? Secondary to recent diuretic Rx Patient received 1 L of normal saline in ED, sodium level now normalized Continue to hold Lasix for now and after discharge, recommend to reassess with primary care doctor and or cardiology when it is appropriate to restart her Lasix Hx CVA/PVD as per records Hx subdural hematoma status post surgery (2019) Hypothyroidism, TSH slightly elevated, will order home levothyroxine , patient states she has been taking levothyroxine as prescribed - recommend to follow-up as outpatient with PCP Mood disorder, at baseline Chronic anemia, hemoglobin at baseline Movement DSO on Mysoline Past tobacco abuse Total Time Total Time Spent Total Time Spent (In Minutes): 40 Total Time Includes: Examination of the Patient, Discharge Planning, Medication Reconciliation and Communication With Other Providers Discharge Plan Discharge Items Patient Disposition: Home - Self-Care Reason For Visit: RESP FAILURE, DC ISOL PREC, COVID NEGATIVE Discharge Diagnosis: Acute on chronic respiratory failure likely secondary to viral bronchiolitis Hyponatremia Condition on Discharge: Fair Activity: Per Instructions section Non-emergency contact: Primary Care Provider and Loom Winder Tender Call non-emergency contact if: you have any medication questions and your symptoms worsen Follow-up/Referrals: López Edward MD [Primary Care Provider] - 01/23/20 12:00 pm (Date & Time 01/23/2020 12:00 PM Provider López Edward MD Department General Internal Medicine [facility] ) Diet: Heart Healthy Diet Comment: Speech therapy recommends slippery diet, avoid soft breads, large pieces/dry meat, choose moist, loose, slippery foods, and extra liquid/sauce as needed. Make sure you always sit upright when you eat and take single small bites Addtl Attending Provider Instructions: Follow-up with your primary care doctor, appointment was scheduled for you for January 22. In the meantime please continue taking prednisone as prescribed. Also continue home Spiriva. Your TSH (thyroid lab), was abnormal in the hospital. Make sure you take your levothyroxine as prescribed (at least half an hour before any meal ) and follow- up with your primary care doctor. Your primary care doctor will need to repeat TSH and manage your medications further. Your sodium level was low, therefore recommend not to use Lasix for now. Discuss with your primary care doctor when it is appropriate to restart your Lasix. It is recommended that you weigh yourself every morning and write down your weight on the paper. Let your primary care doctor and your tile designer know your weights. Pending Studies at Discharge: No Stand-Alone Forms: [facility], Smoking Cessation Medications and DC Order Prescriptions: New prednisone 20 mg Tablet 40 mg PO DAILY 3 Days Qty: 6 RF: 0 Continued coenzyme Q10 100 mg capsule 200 mg PO HS RF: 0 estradiol 0.01 % (0.1 mg/gram) cream 0.01 % PV UD RF: 0 lamotrigine 200 mg tablet 200 mg PO HS RF: 0 levothyroxine 75 mcg tablet 75 mcg PO QAM Qty: 90 RF: 0 clonazepam 0.5 mg tablet 1.5 mg PO HS Qty: 60 RF: 0 primidone 50 mg tablet 100 mg PO BIDM RF: 0 Daily Probiotic 2.5 billion cell capsule 1 cap PO HS RF: 0 polyethylene glycol 3350 [Miralax] 17 gram/dose powder 8.5 gm PO DAILY PRN (Reason: Constipation) RF: 0 phenelzine 15 mg Tablet 30 mg PO BID RF: 0 raloxifene 60 mg Tablet 60 mg PO HS RF: 0 primidone 50 mg Tablet 150 mg PO HS RF: 0 calcium carbonate-vitamin D3 [Calcium 600 + D(3)] 600 mg(1,500mg) -200 unit Tablet 1 tab PO HS RF: 0 famotidine 40 mg tablet 20 mg PO BID RF: 0 triamcinolone acetonide 0.1 % cream 1 applic TOPICAL BID RF: 0 nystatin 100,000 unit/mL suspension 5 ml buccal QID PRN (Reason: Thrush) RF: 0 clonazepam 1 mg tablet 0.5 mg PO 1500 RF: 0 Spiriva Respimat 2.5 mcg/actuation mist 2 puff INHALATION QAM RF: 0 Ensure Liquid 1 ea PO DAILY RF: 0 Discontinued furosemide 20 mg Tablet 20 mg PO MOWEFR RF: 0 Discharge Orders: Discharge Order (Routine); Ordered 01/19/20 Ordered By: Gene Warren Admission Data Admit Date/Time: 01/18/20 01:39 Attending Provider: Gene Warren Admit Provider: Fabian Napier Primary Care Provider: López Edward Other Providers: Fabian Napier ; Cornelio Garcia ; Jaxon Humphrey ; Chiquita Melendez ; Luis A Barros ; Fabian Ocasio ; Tonny Flores ; Sadi Escamilla ; Leanna Gibson
[2020-01-19] MEDS: ACETAMINOPHEN 325 MG TAB PO PRN (10:15)
[2020-01-19] MEDS: AMOXICILLIN/CLAVULANATE 875 MG TAB PO SCH (10:15)
[2020-01-19] MEDS: FAMOTIDINE 20 MG TAB PO SCH (10:16)
[2020-01-19] MEDS: predniSONE 20 MG TAB PO SCH (10:16)
[2020-01-19] MEDS: PRIMIDONE 50 MG TAB PO SCH (10:16)
[2020-01-19] MEDS: guaiFENesin 600 MG TABCR PO SCH (10:16)
== END 2020-01-19 13:40 | disposition home or self-care (01) | DRG 189 ==
LOC: ED 21:57 → 2N 01-18 01:39

== ENCOUNTER 2022-11-03 04:29 | Observation (INO) ==
--- NOTE | 2022-11-03 04:34 | Emergency Department Note ---
History of Present Illness General Chief complaint: Abdominal Pain Stated complaint: Upper Rib Pain, Abdominal Pain Time Seen by Provider: 11/03/22 04:33 History of Present Illness This 72-year-old female patient presents to the emergency department via ambulance for evaluation of abdominal pain. The pain is mainly in the RUQ and epigastric area and radiates to her back, her shoulders, and into her chest unde r her ribs. Symptoms woke her up at 3 am. No pain prior to 3 am today. She states that the pain is sharp, constant, and 9/10. Nausea without vomiting. Denies any cardiac chest pain or SOB. No fevers. Has had burning with urination for a while now. Just recently finished cipro for a UTI. History of diverticulosis and IBS-C. Takes Linzess for her IBS-C. History of appendectomy, but she still has her gallbladder. Home Medications Medication Instructions Recorded Confirmed Type coenzyme Q10 100 mg capsule 200 mg PO HS 02/05/19 03/18/22 History estradiol 0.01% (0.1 mg/gram) 0.01 % vaginal Q7D 02/05/19 03/18/22 History vaginal cream lamotrigine 200 mg tablet 200 mg PO HS 02/05/19 03/18/22 History primidone 50 mg tablet 100 mg PO UD 02/05/19 03/18/22 History Lactobacillus 1 cap PO HS 02/07/19 03/18/22 History acidophilus-Bifidobac.animalis 2.5 billion cell capsule (Daily Probiotic) polyethylene glycol 3350 17 17 gm PO UD PRN Constipation 02/07/19 03/18/22 History gram/dose oral powder (Miralax) primidone 50 mg tablet 150 mg PO HS 03/19/19 03/18/22 History raloxifene 60 mg tablet 60 mg PO HS 03/19/19 03/18/22 History clonazepam 1 mg tablet 1 mg PO TID 05/19/19 03/18/22 History calcium carbonate 600 mg-vitamin 1 tab PO HS 10/10/19 03/18/22 History D3 5 mcg (200 unit) tablet (Calcium 600 + D(3)) food supplemt, lactose-reduced 1 ea PO QAM 01/09/20 03/18/22 History (Ensure oral liquid) famotidine 40 mg tablet 20 mg PO BID 01/17/20 03/18/22 History triamcinolone acetonide 0.1 % 1 applic topical BID PRN Rash 01/17/20 03/18/22 History topical cream omeprazole 20 mg tablet,delayed 20 mg PO QAM 02/27/20 03/18/22 History release ipratropium bromide 17 2 puff inhalation QID PRN Wheezing 09/01/20 03/18/22 History mcg/actuation HFA aerosol inhaler (Atrovent HFA) umeclidinium 62.5 mcg-vilanterol 1 inh inhalation QAM 09/01/20 03/18/22 History 25 mcg/actuation powdr for inhalation (Anoro Ellipta) acetaminophen 500 mg tablet 1,000 mg PO Q6H PRN Pain 12/31/21 03/18/22 History levothyroxine 50 mcg tablet 50 mcg PO QAM 12/31/21 03/18/22 History potassium chloride 20 mEq 20 meq PO Q2D 12/31/21 03/18/22 History tablet,extended release(part/cryst) (Klor-Con M) cholecalciferol (vitamin D3) 25 25 mcg PO QAM 03/18/22 03/18/22 History mcg (1,000 unit) tablet (Vitamin D3) sulfamethoxazole 800 1 tab PO BID 03/18/22 03/18/22 History mg-trimethoprim 160 mg tablet (Bactrim DS) Allergies Allergy/AdvReac Type Severity Reaction Status Date / Time topiramate Allergy Severe BREATHING Verified 03/18/22 11:17 PROBLEM & EYE PROBLEMS. beclomethasone [From Qvar] Allergy Intermediate swelling Verified 03/18/22 11:17 of lip adhesive Allergy Mild RASH, Verified 03/18/22 11:17 BLISTER doxycycline Allergy Mild rash Verified 03/18/22 11:17 ephedrine Allergy Mild REACTS Verified 03/18/22 11:17 WITH ANOTHER MED gabapentin Allergy Mild rash Verified 03/18/22 11:17 nickel Allergy Mild Rash Verified 03/18/22 11:17 epinephrine Allergy Unknown reacts to Verified 03/18/22 11:17 a med albuterol AdvReac Unknown unknown Verified 03/18/22 11:17 per pt levalbuterol AdvReac Unknown unknown Verified 03/18/22 11:17 per pt procaine [From Novocain] AdvReac Unknown reacts to Verified 03/18/22 11:17 nardil medication pt is on Tyramine Allergy Severe WAS Uncoded 03/18/22 11:17 BELIEVED IT CAUSED A STROKE Past Med/Surg History Medical History Adrenal insufficiency Anemia Balance problem Bipolar 1 disorder Chronic back pain Constipation COPD (chronic obstructive pulmonary disease) inhaler daily--chronic cough/wheeze daily per pt Degenerative disc disease Diastolic heart failure follows with Dr. Corona [place] Ectopic atrial tachycardia follows Dr. Corona GERD (gastroesophageal reflux disease) Hearing deficit History of subdural hematoma 02/2019 - fall Hypothyroidism Kidney stones hx-passed on own Liver mass PCP FOLLOWING Lung nodule just monitoring Major depressive disorder (11/01/11) On home oxygen therapy 2L n/c at hs Orthostatic hypotension Osteoarthritis Osteoporosis Pancreatic mass pcp monitoring-hx-"told she no longer has it" Poor memory PTSD (post-traumatic stress disorder) hx Recurrent falls last one 07/2021; bump on head-"leakage noted from previous hematoma" Schizophrenia pt denies-"police didn't believe her when she thought ex- was coming to her apartment daily" Sleep apnea uses O2 @2Liters at bedtime Spinal stenosis Stroke 1983--numbness of left side of face--follows with Dr. Lopez in [facility]-has not seen since 2018 Thoracic aortic ectasia follows Dr. Corona Tremor Surgical History H/O esophagogastroduodenoscopy History of appendectomy History of bilateral cataract extraction per pt had it done twice on both eyes History of colonoscopy with polypectomy History of dilation and curettage mult History of laparotomy x2---uterine fibroids History of left heart catheterization (LHC) [address] [facility]--no stents History of tonsillectomy and adenoidectomy History of tooth extraction all upper teeth/most of lower History of transesophageal echocardiography (SHAYE) Hx of tubal ligation S/P subdural hematoma evacuation (~04/2019) [facility] > November 2019 pt "unsure about this" Status post glaucoma surgery unsure which eye Family History Brother Family history of diabetes mellitus Family hx colonic polyps Son Family history of diabetes mellitus Aunt Family history of diabetes mellitus Uncle Family history of diabetes mellitus Mother Family hx of colon cancer Sister Family hx of colon cancer Other No family history of adverse response to anesthesia Social History Smoking Status: Former smoker Cigarettes Per Day: 2011; Second Hand Exposure: Yes (as a child); Do You Dip or Chew Tobacco: No; Hx Alcohol Use: Yes (hx) Alcohol type: hard liquor Hx Substance Use: No Preferred Language: Bulgarian Communication Ability: Effective Recreation Manager Required: No Beliefs That Will Affect Care: None marital status: Current Living Situation: Alone current occupational status: retired Feels Safe at Home: Yes Assistive Devices: Cane, Denture - Upper, Denture - Lower, Glasses, Oxygen - at Night and Walker Review of Systems See HPI for pertinent positives & negatives. Physical Exam Vital Signs Vital Signs - 24 hr 11/03/22 04:34 11/03/22 05:34 11/03/22 07:27 Temperature 37.0 C Temperature Source Oral Pulse Rate 82 Pulse Rate [Right Finger] 64 Pulse Rhythm [Right Finger] Regular Pulse Strength [Right Finger] Normal Respiratory Rate 16 16 Respiratory Effort / Characteristics Non-Labored Spontaneous Non-Labored Spontaneous Respiratory Depth Normal Normal Respiratory Pattern Regular Regular Blood Pressure 106/82 Blood Pressure [Right Arm] 115/65 Blood Pressure Mean 90 Blood Pressure Mean [Right Arm] 81 Pulse Oximetry 94 96 Oxygen Delivery Method Room Air Room Air Room Air Sepsis Recent Fever Within 48 Hours No Sepsis New/Unexplained Change in Mental Status No Sepsis Action Taken by Nursing No Action Required VITALS: Vitals are noted on the nurse's note and reviewed by myself. GENERAL: Non toxic, no acute distress, non-diaphoretic. SKIN: Capillary refill <2 sec. EYES: PERRLA. EOMI. Conjunctivae without injection, sclerae without icterus. NOSE: Patent without discharge. MOUTH: Mucous membranes moist. Uvula midline. Airway patent. NECK: Supple without nuchal rigidity. HEART: Regular rate and rhythm without murmurs gallops or rubs. LUNGS: Clear to auscultation bilaterally without wheezes, rales or rhonchi. No retractions or accessory muscle use. ABDOMEN: Positive bowel sounds x 4. Normal tympanic percussion. Soft, tender to palpation in the right upper quadrant and epigastric area. No masses or organomegaly. No CVA tenderness. Velez sign negative. No guarding or rebound tenderness. No focal RLQ or LLQ tenderness. Course Administered Medications Discontinued Medications Fentanyl Citrate (Fentanyl Citrate Pf 100 Mcg/2 Ml Vial) 100 mcg IV NOW STA Stop: 11/03/22 05:59 Last Admin: 11/03/22 06:03 Dose: 100 mcg Documented By: NAT Fentanyl Citrate (Fentanyl Citrate Pf 100 Mcg/2 Ml Vial) 100 mcg IV NOW STA Stop: 11/03/22 07:28 Last Admin: 11/03/22 07:38 Dose: 100 mcg Documented By: JESSENIA Sodium Chloride (Nss) 500 mls @ 999 mls/hr IV .Q31M STA Stop: 11/03/22 05:12 Last Infusion: 11/03/22 05:47 Dose: 0 mls/hr Documented By: Admin: 11/03/22 04:55 Dose: 999 mls/hr Documented By: NAT Ioversol (Optiray 320 500ml) 100 ml IV ONCE ONE Stop: 11/03/22 05:22 Last Admin: 11/03/22 05:22 Dose: 90 ml Documented By: AMRIT Ketorolac Tromethamine (Ketorolac Tromethamine 15 Mg/Ml Vial) 15 mg IV NOW STA Stop: 11/03/22 04:43 Last Admin: 11/03/22 05:06 Dose: Not Given Documented By: NAT Morphine Sulfate (Morphine Sulfate 4 Mg/Ml 1 Ml Carp\\Vial) 4 mg IV NOW STA Stop: 11/03/22 04:51 Last Admin: 11/03/22 04:55 Dose: 4 mg Documented By: NAT Ondansetron HCl (Ondansetron Inj 2 Mg/Ml 2 Ml Vial) 4 mg IV NOW STA Stop: 11/03/22 04:43 Last Admin: 11/03/22 04:49 Dose: 4 mg Documented By: NAT Ondansetron HCl (Ondansetron Inj 2 Mg/Ml 2 Ml Vial) 4 mg IV NOW STA Stop: 11/03/22 07:28 Last Admin: 11/03/22 07:38 Dose: 4 mg Documented By: JESSENIA Medical Decision Making Differential Diagnosis Differential diagnosis includes hepatitis, pancreatitis, cholecystitis, cholelithiasis, appendicitis, kidney stone, pyelonephritis, UTI, gastritis, gastroenteritis, mesenteric adenitis, obstruction, constipation, hernia, abdominal abscess, perforation, diverticulitis, IBD, ischemic colitis, abdominal aortic aneurysm, or others. Laboratory Data Attestation: I reviewed the patient's lab results. 11/03/22 04:40 11/03/22 04:40 Lab Results 11/03/22 11/03/22 Range/Units 04:40 04:40 WBC 4.55 L (4.8-10.8) K/ul RBC 3.82 L (4.20-5.40) M/uL Hgb 12.0 (12.0-16.0) g/dl Hct 35.4 L (37.0-47.0) % MCV 92.7 (80.0-100.0) fL MCH 31.4 (25.0-34.0) pg MCHC 33.9 (32.0-36.0) g/dL RDW Std Deviation 40.0 (36.4-46.3) fL RDW Coeff of Paul 11.8 (11.5-14.5) % Plt Count 313 (130-400) K/uL MPV 9.3 L (9.4-12.4) fL Immature Gran % (Auto) 0.2 % Neut % (Auto) 56.0 % Lymph % (Auto) 29.0 % Love % (Auto) 9.0 % Eos % (Auto) 5.1 % Baso % (Auto) 0.7 % Neut # (Auto) 2.55 (1.40-6.50) K/uL Lymph # (Auto) 1.32 (1.2-3.4) K/uL Love # (Auto) 0.41 (0.11-0.59) K/uL Eos # (Auto) 0.23 (0-0.50) K/uL Baso # (Auto) 0.03 (0-0.2) K/uL Immature Gran # (Auto) 0.01 (0.01-0.20) K/uL Sodium 134 L (136-145) mmol/L Potassium 3.6 (3.5-5.1) mmol/L Chloride 101 (98-107) mmol/L Carbon Dioxide 29 (21-32) mmol/L Anion Gap 4 (3-11) BUN 11 (6-23) mg/dl Creatinine 0.50 L (0.6-1.2) mg/dl Est Cr Clr Drug Dosing 74.0 ml/min Est GFR ( Amer) 111.3 ml/min Est GFR (Non-Af Amer) 96.0 ml/min BUN/Creatinine Ratio 22.0 H (10-20) Glucose 98 (70-99(Fasting)) mg/dl Calcium 8.7 (8.6-10.3) mg/dl Total Bilirubin 0.2 (0.2-1.0) mg/dl AST 26 (13-39) U/L ALT 21 (7-52) U/L Alkaline Phosphatase 36 (34-104) U/L Troponin I High Sens 3.8 (0-14) pg/ml Total Protein 6.6 (6.0-8.3) gm/dl Albumin 3.8 (3.4-5.0) gm/dl Globulin 2.8 (2.5-4.0) gm/dl Albumin/Globulin Ratio 1.4 (0.9-2) Lipase 66 (11-82) U/L Imaging Data Attestation: I personally reviewed and interpreted this imaging study as follows: My Impression: Chest x-ray interpreted by myself shows no acute cardiopulmonary etiology. Ra diology report still pending. Radiologist's Impression: Abdomen/Pelvis CT 11/03/22 04:[address] WITH IV CONTRAST CT DOSE: 334.20 mGy.cm HISTORY: Acute right upper quadrant and epigastric abdominal pain RUQ and epigastric abdominal pain TECHNIQUE: Multiaxial CT images of the abdomen and pelvis were performed following the IV administration of 90 cc of Optiray, A dose lowering technique was utilized adhering to the principles of ALARA. COMPARISON STUDY: Ultrasound of same day, CT 10/01/2015, video swallow study 11/02/2012, MRI lumbar spine 02/03/2017. FINDINGS: Cardiomegaly. Mild bibasilar atelectasis. No pneumatosis or pneumoperitoneum. Unremarkable spleen, pancreas and adrenal glands. The gallbladder is distended. No definite cholelithiasis identified by CT. Trace pericholecystic fluid. Intrahepatic and extrahepatic biliary ductal dilation. The common bile duct measures up to approximately 9 mm. No obstructing biliary stone identified. Scattered hepatic cysts are noted measuring up to 1.5 cm. 1.6 cm intermediate density lesion of the right hepatic lobe on image 64 is likely benign however is indeterminate on this single phase study. Patency of the hepatic and portal veins. Unremarkable kidneys. 10 mm cyst of the lateral interpolar right kidney. No hydronephrosis. Moderate bladder wall thickening. Heterogeneity of the uterus with suggested endometrial thickening measuring up to 10 mm. Atherosclerosis of the aorta. No lymphadenopathy identified. Mild nonspecific distal esophageal wall thickening. Limited evaluation of the bowel secondary to retained barium within the colon. Colonic diverticulosis. Nonvisualization of the appendix. Unremarkable soft tissues. Moderate amount of body wall edema. Chronic L1 compression deformity. Moderate L3 compression deformity is new from 2017 with 2 mm retropulsion. IMPRESSION: 1. Limited exam secondary to retained barium within the colon secondary to yesterday's swallow study. 2. Distended gallbladder with trace pericholecystic fluid. Please refer to the same day right upper quadrant ultrasound for additional findings. 3. Mild intrahepatic and extrahepatic biliary ductal dilation without obstructing biliary lesion or stone identified. Correlate with serum bilirubin. 4. Heterogeneous uterus with thickening of the postmenopausal endometrium. Correlation with nonemergent follow-up pelvic ultrasound recommended. 5. Chronic L1 with likely chronic L3 compression deformities. 6. Additional findings as above. ACT 112: Negative or not required by law. The above report was generated using voice recognition software. It may contain grammatical, syntax or spelling errors. Electronically signed by: Golden Israel M.D. 11/03/2022 7:18 AM Gallbladder Ultrasound 11/03/22 04:42 ABDOMINAL ULTRASOUND, RIGHT UPPER QUADRANT HISTORY: Acute right upper quadrant abdominal pain RUQ and epigastric abdominal pain. COMPARISON: CT study of same day FINDINGS: Pancreas: The pancreas demonstrates a normal echotexture. Liver: Hepatic cysts measure up to 1.1 cm. Intrahepatic biliary ductal dilation. Gallbladder: Distended gallbladder with layering sludge and small gallstones. Gallbladder wall measures up to 2 mm. Trace pericholecystic fluid. Sonographic Velez's sign cannot be reported secondary to the patient recently receiving pain medication. 3 mm gallbladder polyp. CBD: 10 mm. Right kidney: No hydronephrosis. IMPRESSION: 1. Distended gallbladder with cholelithiasis, biliary sludge and trace pericholecystic fluid. No associated gallbladder wall thickening was identified and the sonographic Velez sign was unable to be elicited. Findings could be correlate with nuclear medicine hepatobiliary scan to exclude acute cholecystitis. 2. Mild intrahepatic and extrahepatic biliary ductal dilation. Correlate with serum bilirubin. ACT 112: Negative or not required by law. Electronically signed by: Golden Israel M.D. 11/03/2022 7:19 AM Chest X-Ray 11/03/22 04:43 XR chest 1V portable HISTORY: 72 years-old Female chest pain acute chest and upper abdominal pain COMPARISON: CT abdomen and pelvis of same day TECHNIQUE: AP view of the chest FINDINGS: Cardiomediastinal and hilar silhouettes are within normal limits. No pneumothorax, pleural effusion, airspace consolidation or pulmonary edema. Mild sigmoidal scoliosis of the spine. Bones appear grossly intact. IMPRESSION: No acute process. ACT 112: Negative or not required by law. The above report was generated using voice recognition software. It may contain grammatical, syntax or spelling errors. Electronically signed by: Golden Israel M.D. 11/03/2022 6:47 AM MDM Narrative I examined the patient. An IV lock was placed and labs were drawn. She was given normal saline solution 500 mL IV bolus. She was given Morphine 4 mg IV for pain followed by fentanyl 100 mcg IV x 2 for additional pain. She was given Zofran 4 mg IV x 2 for nausea. EKG is interpreted by myself shows normal sinus rhythm at 83 bpm with no acute ST or T wave changes. Chest x-ray is interpreted by myself shows no acute cardiopulmonary etiology. Radiology report still pending. White blood cell count low at 4.55. Hemoglobin normal at 12. Platelet count normal at 313. Sodium 134, but CMP otherwise normal. Lipase normal. High- sensitivity troponin normal. The patient did not give a urine sample while in the emergency department. CT scan of the abdomen and pelvis with IV contrast was reviewed by myself and read by radiology as above. It was a limited exam secondary to retained barium within the colon secondary to yesterday's swallow study. There is a distended gallbladder with trace pericholecystic fluid. Mild intrahepatic and extrahepatic biliary ductal dilation without obstructing biliary lesion or stone. Heterogeneous uterus thickening of the postmenopausal endometrium. Regi elation with nonemergent follow-up pelvic ultrasound recommended. Chronic L1 with likely chronic L3 compression deformities. Right upper quadrant ultrasound was reviewed by myself and read by radiology as above and shows a distended gallbladder with cholelithiasis, biliary sludge, and trace pericholecystic fluid. No associated gallbladder wall thickening identified and the sonographic Velez sign was unable to be elicited. Findings could be correlated with nuclear medicine hepatobiliary scan to exclude acute cholecystitis. Mild intrahepatic and extrahepatic biliary ductal dilation. I spoke with Nicci Pabon PA-C of surgery in regards to the CT scan and ultrasound findings. She presented to the emergency department to evaluate the patient to further determine recommendations. Nicci Pabon PA-C recommended HIDA scan which she ordered and also recommended the patient be admitted by medicine while she is undergoing further work-up to determine if acute cholecystitis present. We spoke with the on-call hospitalist who agreed to admit the patient for further inpatient management. Please refer to their dictation for further details. The patient's care was transferred in stable condition. Impression & Plan Abdominal pain, RUQ, Cholelithiasis, Biliary sludge Discharge Plan Visit Data Chief Complaint: Abdominal Pain Stated Complaint: Upper Rib Pain, Abdominal Pain ED Provider: Rizwana Chavarria ED Midlevel Provider: Jossie Graf Discharge Problem: Abdominal pain, RUQ, Cholelithiasis, Biliary sludge Patient Disposition: Being Evaluated by Hospitalist Condition: Good Forms Stand Alone Forms: My [facility] Prescriptions Prescriptions: No Action coenzyme Q10 100 mg capsule 200 mg PO HS estradiol 0.01 % (0.1 mg/gram) cream 0.01 % PV Q7D lamotrigine 200 mg tablet 200 mg PO HS primidone 50 mg tablet 100 mg PO UD Rx Instructions: TAKES IN MORNING AND LUNCHTIME. Daily Probiotic 2.5 billion cell capsule 1 cap PO HS polyethylene glycol 3350 [Miralax] 17 gram/dose powder 17 gm PO UD PRN (Reason: Constipation) raloxifene 60 mg Tablet 60 mg PO HS primidone 50 mg Tablet 150 mg PO HS calcium carbonate-vitamin D3 [Calcium 600 + D(3)] 600 mg(1,500mg) -200 unit Tablet 1 tab PO HS famotidine 40 mg tablet 20 mg PO BID triamcinolone acetonide 0.1 % cream 1 applic TOPICAL BID PRN (Reason: Rash) omeprazole 20 mg Tablet,Delayed Release (Dr/Ec) 20 mg PO QAM clonazepam 1 mg tablet 1 mg PO TID Ensure Liquid 1 ea PO QAM Atrovent HFA 17 mcg/actuation Hfa Aerosol Inhaler 2 puff INHALATION QID PRN (Reason: Wheezing) Anoro Ellipta 62.5-25 mcg/actuation Blister With Device 1 inh INHALATION QAM acetaminophen 500 mg Tablet 1,000 mg PO Q6H PRN (Reason: Pain) potassium chloride [Klor-Con M20] 20 mEq Tablet,Er Particles/Crystals 20 meq PO Q2D levothyroxine 50 mcg Tablet 50 mcg PO QAM sulfamethoxazole-trimethoprim [Bactrim DS] 800-160 mg Tablet 1 tab PO BID Rx Instructions: for 7 days until gone. cholecalciferol (vitamin D3) [Vitamin D3] 25 mcg (1,000 unit) Tablet 25 mcg PO QAM Referrals Referrals: López Edward MD [Primary Care Provider] -
[2022-11-03] MEDS ORDERED: SODIUM CHLORIDE 0.9% 500 ML IV STA (04:42)
[2022-11-03] MEDS ORDERED: ONDANSETRON INJ 2 MG/ML 2 ML VIAL IV STA ×2 (04:42→07:27)
[2022-11-03] MEDS ORDERED: KETOROLAC TROMETHAMINE 15 MG/ML VIAL IV STA (04:42)
[2022-11-03] MEDS ORDERED: MoRPHine SULFATE 4 MG/ML 1 ML CARP\\VIAL IV STA (04:50)
[2022-11-03 04:57] LABS: Basophils # (auto) 0.03 K/uL (0-0.2); Basophils % (auto) 0.7 %; Eosinophils # (auto) 0.23 K/uL (0-0.50); Eosinophils % (auto) 5.1 %; Hematocrit (blood only) 35.4 % (37.0-47.0); Immature Granulocytes # (auto) 0.01 K/uL (0.01-0.20); Immature Granulocytes % (auto) 0.2 %; Lymphocytes # (auto) 1.32 K/uL (1.2-3.4); Mean Corpuscular Hemoglobin 31.4 pg (25.0-34.0); Mean Corpuscular Hgb Conc 33.9 g/dL (32.0-36.0); Mean Corpuscular Volume 92.7 fL (80.0-100.0); Mean Platelet Volume 9.3 fL (9.4-12.4); Monocytes # (auto) 0.41 K/uL (0.11-0.59); Neutrophils # (auto) 2.55 K/uL (1.40-6.50); Platelet Count 313 K/uL (130-400); RDW Coefficient of Variation 11.8 % (11.5-14.5); Red Blood Count 3.82 M/uL (4.20-5.40); White Blood Count 4.55 K/ul (4.8-10.8)
[2022-11-03 05:11] LABS: Albumin Globulin Ratio 1.4 (0.9-2); Albumin Level 3.8 gm/dl (3.4-5.0); Bilirubin,Total 0.2 mg/dl (0.2-1.0); Calcium 8.7 mg/dl (8.6-10.3); Est GFR (African American) 111.3 ml/min; Globulin 2.8 gm/dl (2.5-4.0); Potassium 3.6 mmol/L (3.5-5.1); Total Protein 6.6 gm/dl (6.0-8.3)
[2022-11-03 05:17] LABS: Troponin I High Sensitivity 3.8 pg/ml (0-14)
[2022-11-03] MEDS ORDERED: OPTIRAY 320 500ml IV ONE (05:21)
[2022-11-03] MEDS ORDERED: fentaNYL citrate PF 100 MCG/2 ML VIAL IV STA ×2 (05:58→07:27)
--- NOTE | 2022-11-03 06:48 | XRay Report ---
XR chest 1V portable HISTORY: 72 years-old Female chest pain acute chest and upper abdominal pain COMPARISON: CT abdomen and pelvis of same day TECHNIQUE: AP view of the chest FINDINGS: Cardiomediastinal and hilar silhouettes are within normal limits. No pneumothorax, pleural effusion, airspace consolidation or pulmonary edema. Mild sigmoidal scoliosis of the spine. Bones appear grossl y intact. IMPRESSION: No acute process. ACT 112: Negative or not required by law. The above report was generated using voice recognition software. It may contain grammatical, syntax o r spelling errors. Electronically signed by: Golden Israel M.D. 11/03/2022 6:47 AM
--- NOTE | 2022-11-03 07:20 | CT Scan Report ---
ABDOMEN AND PELVIS CT WITH IV CONTRAST CT DOSE: 334.20 mGy.cm HISTORY: Acute right upper quadrant and epigastric abdominal pain RUQ and epigastric abdominal pain TECHNIQUE: Multiaxial CT images of the abdomen and pelvis were performed following the IV administrat ion of 90 cc of Optiray, A dose lowering technique was utilized adhering to the principles of ALARA. COMPARISON STUDY: Ultrasound of same day, CT 10/01/2015, video swallow study 11/02/2012, MRI lumbar spi ne 02/03/2017. FINDINGS: Cardiomegaly. Mild bibasilar atelectasis. No pneumatosis or pneumoperitoneum. Unremarkable spleen, pancreas and adrenal glands. The gallbladder is distended. No definite cholelithiasis identif ied by CT. Trace pericholecystic fluid. Intrahepatic and extrahepatic biliary ductal dilation. The co mmon bile duct measures up to approximately 9 mm. No obstructing biliary stone identified. Scattered hepatic cysts are noted measuring up to 1.5 cm. 1.6 cm intermediate density lesion of the right hepat ic lobe on image 64 is likely benign however is indeterminate on this single phase study. Patency of the hepatic and portal veins. Unremarkable kidneys. 10 mm cyst of the lateral interpolar right kidney. No hydronephrosis. Moderate bladder wall thickening. Heterogeneity of the uterus with suggested endometrial thickening measuring up to 10 mm. Atherosclerosis of the aorta. No lymphadenopathy identified. Mild nonspecific distal esophageal wall thickening. Limited evaluation of the bowel secondary to timothy ined barium within the colon. Colonic diverticulosis. Nonvisualization of the appendix. Unremarkable soft tissues. Moderate amount of body wall edema. Chronic L1 compression deformity. Moderate L3 compr ession deformity is new from 2017 with 2 mm retropulsion. IMPRESSION: 1. Limited exam secondary to retained barium within the colon secondary to yesterday's swallow study. 2. Distended gallbladder with trace pericholecystic fluid. Please refer to the same day right upper q uadrant ultrasound for additional findings. 3. Mild intrahepatic and extrahepatic biliary ductal dilation without obstructing biliary lesion or s tone identified. Correlate with serum bilirubin. 4. Heterogeneous uterus with thickening of the postmenopausal endometrium. Correlation with nonemerge nt follow-up pelvic ultrasound recommended. 5. Chronic L1 with likely chronic L3 compression deformities. 6. Additional findings as above. ACT 112: Negative or not required by law. The above report was generated using voice recognition software. It may contain grammatical, syntax o r spelling errors. Electronically signed by: Golden Israel M.D. 11/03/2022 7:18 AM
--- NOTE | 2022-11-03 07:21 | Ultrasound Report ---
ABDOMINAL ULTRASOUND, RIGHT UPPER QUADRANT HISTORY: Acute right upper quadrant abdominal pain RUQ and epigastric abdominal pain. COMPARISON: CT study of same day FINDINGS: Pancreas: The pancreas demonstrates a normal echotexture. Liver: Hepatic cysts measure up to 1.1 cm. Intrahepatic biliary ductal dilation. Gallbladder: Distended gallbladder with layering sludge and small gallstones. Gallbladder wall measur es up to 2 mm. Trace pericholecystic fluid. Sonographic Velez's sign cannot be reported secondary to the patient recently receiving pain medication. 3 mm gallbladder polyp. CBD: 10 mm. Right kidney: No hydronephrosis. IMPRESSION: 1. Distended gallbladder with cholelithiasis, biliary sludge and trace pericholecystic fluid. No asso ciated gallbladder wall thickening was identified and the sonographic Velez sign was unable to be el icited. Findings could be correlate with nuclear medicine hepatobiliary scan to exclude acute cholecy stitis. 2. Mild intrahepatic and extrahepatic biliary ductal dilation. Correlate with serum bilirubin. ACT 112: Negative or not required by law. Electronically signed by: Golden Israel M.D. 11/03/2022 7:19 AM
--- NOTE | 2022-11-03 07:58 | Surgery Consultation ---
Date of Consultation November 03, 2022 Assessment & Plan (1) Cholelithiasis: This is a 72yF with a PMH of movement disorder, hypothyroidism, bipolar, COPD, heart failure, depression, h/o subdural bleed and PSH of laparotomy for uterine fibroids, appendectomy, tubal ligation who presents to the [facility] with complaints of RUQ pain that radiated to the back that started this AM. This was associated with nausea/vomiting. Due to symptoms she presented to the ER where she underwent both a CT a/p and RUQ US that revealed a distended gallbladder with + stones and sludge and trace pericholecysitic fluid. There is not mild intra and extra hepatic biliary ductal dilation. No gallbladder wall thickening noted. Labs reveal a normal WBC of 4.5, Hbg 12, LFTs are normal with Tb 0.2. On exam patient's abdomen is soft, non distended, and she was not overly tender on exam in the RUQ. She did receive some IV pain meds right before my examination which caused her to be slightly drowsy in the interim. While we were in the room there was also concern she had a run of vtach. For now would recommend patient be evaluated by medicine given her multiple medical problems and we will order a HIDA scan in the meantime to evaluate further for possible acute cholecystitis. As above. Patient continued to have right upper quadrant pain as well as nausea. I do suspect she has cholecystitis. We discussed laparoscopic cholecystectomy and its associated risks which include bleeding, infection, injury to a bile duct or bile leaks, injury to other organs, DVT, PE, MD, CVA etc. She is going down right now for a HIDA scan. If the result is confirmed cholecystitis we will plan laparoscopic cholecystectomy this afternoon. I will call her son to discuss after we get the results. She agrees with the plan and has signed the consent. (2) Abdominal pain, RUQ: History of Present Illness History of Present Illness This is a 72yF with a PMH of movement disorder, hypothyroidism, bipolar, COPD, heart failure, depression, h/o subdural bleed and PSH of laparotomy for uterine fibroids, appendectomy, tubal ligation who presents to the [facility] with complaints of RUQ pain that radiated to the back. She states her pain woke her up at 3am this AM. She never had pain like this before. It was associated with nausea/vomiting. Due to symptoms she presented to the ER where she underwent both a CT a/p and RUQ US that revealed a distended gallbladder with + stones and sludge and trace pericholecystitic fluid. There is not mild intra and extra hepatic biliary ductal dilation. No gallbladder wall thickening noted. Patient denies any fevers/chills, CP/SOB, or recent changes in bowel habits. She never had pain like this before. Does note a 1 year history of some dysphagia, early fullness, and weight loss she is being worked up for, but denies any other complaints with greasy/fatty foods. She reports she last ate an oatmeal cookie last night around 11pm. Initially on my interview patient was alert, but after some pain medication administration she became a bit more drowsy. Allergies Allergy/AdvReac Type Severity Reaction Status Date / Time topiramate Allergy Severe BREATHING Verified 03/18/22 11:17 PROBLEM & EYE PROBLEMS. beclomethasone [From Qvar] Allergy Intermediate swelling Verified 03/18/22 11:17 of lip adhesive Allergy Mild RASH, Verified 03/18/22 11:17 BLISTER doxycycline Allergy Mild rash Verified 03/18/22 11:17 ephedrine Allergy Mild REACTS Verified 03/18/22 11:17 WITH ANOTHER MED gabapentin Allergy Mild rash Verified 03/18/22 11:17 nickel Allergy Mild Rash Verified 03/18/22 11:17 epinephrine Allergy Unknown reacts to Verified 03/18/22 11:17 a med albuterol AdvReac Unknown unknown Verified 03/18/22 11:17 per pt levalbuterol AdvReac Unknown unknown Verified 03/18/22 11:17 per pt procaine [From Novocain] AdvReac Unknown reacts to Verified 03/18/22 11:17 nardil medication pt is on Tyramine Allergy Severe WAS Uncoded 03/18/22 11:17 BELIEVED IT CAUSED A STROKE Home Medications Medication Instructions Recorded Confirmed Type coenzyme Q10 100 mg capsule 200 mg PO HS 02/05/19 11/03/22 History estradiol 0.01% (0.1 mg/gram) 0.01 % vaginal 2XWK 02/05/19 11/03/22 History vaginal cream lamotrigine 200 mg tablet 200 mg PO HS 02/05/19 11/03/22 History primidone 50 mg tablet 100 mg PO BID 02/05/19 11/03/22 History Lactobacillus 1 cap PO HS 02/07/19 11/03/22 History acidophilus-Bifidobac.animalis 2.5 billion cell capsule (Daily Probiotic) polyethylene glycol 3350 17 17 gm PO UD PRN Constipation 02/07/19 11/03/22 History gram/dose oral powder (Miralax) primidone 50 mg tablet 150 mg PO HS 03/19/19 11/03/22 History raloxifene 60 mg tablet 60 mg PO HS 03/19/19 11/03/22 History clonazepam 1 mg tablet 1 mg PO TID 05/19/19 11/03/22 History calcium carbonate 600 mg-vitamin 2 tab PO HS 10/10/19 11/03/22 History D3 5 mcg (200 unit) tablet (Calcium 600 + D(3)) food supplemt, lactose-reduced 1 ea PO QAM 01/09/20 11/03/22 History (Ensure oral liquid) triamcinolone acetonide 0.1 % 1 applic topical BID PRN Rash 01/17/20 11/03/22 History topical cream omeprazole 20 mg tablet,delayed 20 mg PO QAM 02/27/20 11/03/22 History release acetaminophen 500 mg tablet 1,000 mg PO Q6H PRN Pain 12/31/21 11/03/22 History levothyroxine 50 mcg tablet 50 mcg PO QAM 12/31/21 11/03/22 History dicyclomine 10 mg capsule 10 mg PO BID PRN Abdominal Pain 11/03/22 11/03/22 History famotidine 20 mg tablet 20 mg PO BID 11/03/22 11/03/22 History linaclotide 145 mcg capsule 145 mcg PO DAILY 11/03/22 11/03/22 History (Linzess) rosuvastatin 20 mg tablet 20 mg PO QAM 11/03/22 11/03/22 History Patient History Medical History Adrenal insufficiency Anemia Balance problem Bipolar 1 disorder Chronic back pain Constipation COPD (chronic obstructive pulmonary disease) inhaler daily--chronic cough/wheeze daily per pt Degenerative disc disease Diastolic heart failure follows with Dr. Corona [place] Ectopic atrial tachycardia follows Dr. Corona GERD (gastroesophageal reflux disease) Hearing deficit History of subdural hematoma 02/2019 - fall Hypothyroidism Kidney stones hx-passed on own Liver mass PCP FOLLOWING Lumbar compression fracture Lung nodule just monitoring Major depressive disorder (11/01/11) Movement disorder On home oxygen therapy 2L n/c at hs Orthostatic hypotension Osteoarthritis Osteoporosis Pancreatic mass pcp monitoring-hx-"told she no longer has it" Poor memory PTSD (post-traumatic stress disorder) hx Recurrent falls last one 07/2021; bump on head-"leakage noted from previous hematoma" Schizophrenia pt denies-"police didn't believe her when she thought ex- was coming to her apartment daily" Sleep apnea uses O2 @2Liters at bedtime Spasmodic torticollis Spinal stenosis Stroke 1983--numbness of left side of face--follows with Dr. Lopez in [facility]-has not seen since 2018 Thoracic aortic ectasia follows Dr. Corona Tremor Surgical History H/O esophagogastroduodenoscopy History of appendectomy History of bilateral cataract extraction per pt had it done twice on both eyes History of colonoscopy with polypectomy History of dilation and curettage mult History of laparotomy x2---uterine fibroids History of left heart catheterization (LHC) [address] [facility]--no stents History of tonsillectomy and adenoidectomy History of tooth extraction all upper teeth/most of lower History of transesophageal echocardiography (SHAYE) Hx of tubal ligation S/P subdural hematoma evacuation (~04/2019) [facility] > November 2019 pt "unsure about this" Status post glaucoma surgery unsure which eye Family History Brother Family history of diabetes mellitus Family hx colonic polyps Son Family history of diabetes mellitus Aunt Family history of diabetes mellitus Uncle Family history of diabetes mellitus Mother Family hx of colon cancer Sister Family hx of colon cancer Other No family history of adverse response to anesthesia Social History Smoking Status: Former smoker Cigarettes Per Day: 2011; Second Hand Exposure: Yes (as a child); Do You Dip or Chew Tobacco: No; Hx Alcohol Use: Yes Alcohol type: wine and hard liquor Hx Substance Use: No Preferred Language: Yi Communication Ability: Effective Hole Puncher Strap Required: No Beliefs That Will Affect Care: None marital status: Current Living Situation: Alone current occupational status: retired Feels Safe at Home: Yes Safety Concerns: Feels Safe At This Time Assistive Devices: Cane and Walker Review of Systems Constitutional: + weight loss; no fever and no chills Respiratory: no dyspnea Cardiovascular: no chest pain Gastrointestinal: + abdominal pain (RUQ ), + nausea, + vomiting and + dysphagia; no change in bowel habits Musculoskeletal: pain that radiates into upper back Physical Exam Physical Exam: awake, no distress Constitutional: + thin; no acute distress Respiratory: normal respiratory effort Gastrointestinal (Abdomen): Inspection/Auscultation: abdomen not distended Percussion/Palpation: + abdomen tender (not overly tender in to palpation on exam but did just receive IV pain meds) and abdomen soft Musculoskeletal: upper extremity tremors noted bilaterally Results & Data Vital Signs (Past 12 Hours) Vital Signs Temp Pulse Pulse Resp BP BP Pulse Ox 11/03/22 07:27 11/03/22 05:34 64 16 115/65 96 11/03/22 04:34 37.0 C 82 16 106/82 94 O2 Del Method 11/03/22 07:27 Room Air 11/03/22 05:34 Room Air 11/03/22 04:34 Room Air Diagnostic Findings ABDOMINAL ULTRASOUND, RIGHT UPPER QUADRANT HISTORY: Acute right upper quadrant abdominal pain RUQ and epigastric abdominal pain. COMPARISON: CT study of same day FINDINGS: Pancreas: The pancreas demonstrates a normal echotexture. Liver: Hepatic cysts measure up to 1.1 cm. Intrahepatic biliary ductal dilation. Gallbladder: Distended gallbladder with layering sludge and small gallstones. Gallbladder wall measures up to 2 mm. Trace pericholecystic fluid. Sonographic Velez's sign cannot be reported secondary to the patient recently receiving pain medication. 3 mm gallbladder polyp. CBD: 10 mm. Right kidney: No hydronephrosis. IMPRESSION: 1. Distended gallbladder with cholelithiasis, biliary sludge and trace pericho lecystic fluid. No associated gallbladder wall thickening was identified and the sonographic Velez sign was unable to be elicited. Findings could be correlate with nuclear medicine hepatobiliary scan to exclude acute cholecystitis. 2. Mild intrahepatic and extrahepatic biliary ductal dilation. Correlate with serum bilirubin. ACT 112: Negative or not required by law. Electronically signed by: Golden Israel M.D. 11/03/2022 7:19 AM ABDOMEN AND PELVIS CT WITH IV CONTRAST CT DOSE: 334.20 mGy.cm HISTORY: Acute right upper quadrant and epigastric abdominal pain RUQ and epigastric abdominal pain TECHNIQUE: Multiaxial CT images of the abdomen and pelvis were performed following the IV administration of 90 cc of Optiray, A dose lowering technique was utilized adhering to the principles of ALARA. COMPARISON STUDY: Ultrasound of same day, CT 10/01/2015, video swallow study 11/02/2012, MRI lumbar spine 02/03/2017. FINDINGS: Cardiomegaly. Mild bibasilar atelectasis. No pneumatosis or pneumoperitoneum. Unremarkable spleen, pancreas and adrenal glands. The gallbladder is distended. No definite cholelithiasis identified by CT. Trace pericholecystic fluid. Intrahepatic and extrahepatic biliary ductal dilation. The common bile duct measures up to approximately 9 mm. No obstructing biliary stone identified. Scattered hepatic cysts are noted measuring up to 1.5 cm. 1.6 cm intermediate density lesion of the right hepatic lobe on image 64 is likely benign however is indeterminate on this single phase study. Patency of the hepatic and portal veins. Unremarkable kidneys. 10 mm cyst of the lateral interpolar right kidney. No hydronephrosis. Moderate bladder wall thickening. Heterogeneity of the uterus with suggested endometrial thickening measuring up to 10 mm. Atherosclerosis of the aorta. No lymphadenopathy identified. Mild nonspecific distal esophageal wall thickening. Limited evaluation of the bowel secondary to retained barium within the colon. Colonic diverticulosis. N onvisualization of the appendix. Unremarkable soft tissues. Moderate amount of body wall edema. Chronic L1 compression deformity. Moderate L3 compression deformity is new from 2017 with 2 mm retropulsion. IMPRESSION: 1. Limited exam secondary to retained barium within the colon secondary to yesterday's swallow study. 2. Distended gallbladder with trace pericholecystic fluid. Please refer to the same day right upper quadrant ultrasound for additional findings. 3. Mild intrahepatic and extrahepatic biliary ductal dilation without obstructing biliary lesion or stone identified. Correlate with serum bilirubin. 4. Heterogeneous uterus with thickening of the postmenopausal endometrium. Correlation with nonemergent follow-up pelvic ultrasound recommended. 5. Chronic L1 with likely chronic L3 compression deformities. 6. Additional findings as above. ACT 112: Negative or not required by law. The above report was generated using voice recognition software. It may contain grammatical, syntax or spelling errors. Electronically signed by: Golden Israel M.D. 11/03/2022 7:18 AM PG Care Time/CCT Total # of Minutes Spent Total Time Spent with Patient: Total time spent is greater than 50% in coordination of care (as documented) at patient's floor/unit and/or counseling patient: Coding Level of Care Code 75000 INT INP/OBS CARE 2/55MIN Diagnoses Cholelithiasis K80.20 Cholelithiasis location: gallbladder Abdominal pain, RUQ R10.11 (1) Cholelithiasis Cholelithiasis location: gallbladder
[2022-11-03] MEDS ORDERED: ONDANSETRON INJ 2 MG/ML 2 ML VIAL IV PRN (10:43)
[2022-11-03] MEDS ORDERED: ACETAMINOPHEN 325 MG TAB PO PRN (10:43)
[2022-11-03] MEDS: D5W AND NSS 1,000 ML IV SCH ×2 (12:00→23:55)
--- NOTE | 2022-11-03 12:09 | History & Physical Report ---
Date of Service November 03, 2022 Assessment & Plan (1) Abdominal pain, RUQ: (2) Cholelithiasis: (3) Biliary sludge: Plan: Admit to med/surg Patient presenting from home for evaluation of RUQ abdominal pain. In the ED, RUQ US shows distended gallbladder with cholelithiasis, biliary sludge and trace pericholecystic fluid. Afebrile, no leukocytosis, LFTs WNL Will start empiric IV Unasyn NPO General surgery recommending HIDA scan -- further recommendations to follow Patient denies cardiopulmonary complaints. EKG without acute ST changes, CXR clear. Patient considered acceptable risk to proceed to surgery if needed. (4) Spasmodic torticollis: (5) Movement disorder: (6) Tremor: Plan: Stable, follows with movement [place] neurolog[place] [facility] [place] Receives Botox onjections Continue home Lamictal, clonazepam (7) Hypothyroid: Plan: Continue levothyroxine (8) Bipolar 1 disorder: (9) Schizophrenia: Plan: Stable, continue home meds (10) COPD (chronic obstructive pulmonary disease): Plan: No signs of acute exacerbation, does not utilize home inhalers Uses 2L O2 HS (11) Osteoporosis: Plan: On raloxifene DVT PROPHYLAXIS SCDs due to possible surgical procedure. Patient seen in collaboration with Dr. Dowell. I spent a total of 75 minutes coordinating, documenting, and providing care for this patient excluding time spent in the performance of separately billed services. This included personally reviewing all current laboratories and imaging studies, medication reconciliation, outpatient chart review, and discussion with specialists. Admission and Anticipated Discharge Date Admission Date: November 03, 2022 History of Present Illness Chief Complaint: Abdominal Pain Primary Care Provider: López Edward MD 72 year old female with PMH hypothyroidism, COPD, nocturnal hypoxia on 2L O2 HS, orthostatic hypotension, GERD, esophageal dysmotility, IBS, spasmodic torticollis, movement disorder with chronic tremor, bipolar and schizoaffective disorder, history of traumatic subdural hematoma, and other problems listed b elow who presents to the ED for evaluation of abdominal pain. Patient states she woke up at 3AM with RUQ abdominal pain. Pain radiated around to her back and up between her shoulder blades. She reports associated nausea and one episode of vomiting in the ED. She denies hematemesis and coffee ground emesis. Patient states she has IBS and struggles with chronic diarrhea and constipation, bowel habits unchanged from baseline. Patient states she has lost about 50 pounds over the past 1 year. Follows with GI and has had EGDs and colonoscopies. Patient denies fever and chills. No chest pain or shortness of breath. Denies lightheadedness, dizziness, diaphoresis, and syncopal events. No urinary symptoms. In the ED, patient is hemodynamically stable, labs are unremarkable. RUQ US shows distended gallbladder with cholelithiasis, biliary sludge and trace pericholecystic fluid. Patient was given pain and nausea medication and IVF. Allergies Allergy/AdvReac Type Severity Reaction Status Date / Time topiramate Allergy Severe BREATHING Verified 03/18/22 11:17 PROBLEM & EYE PROBLEMS. beclomethasone [From Qvar] Allergy Intermediate swelling Verified 03/18/22 11:17 of lip adhesive Allergy Mild RASH, Verified 03/18/22 11:17 BLISTER doxycycline Allergy Mild rash Verified 03/18/22 11:17 ephedrine Allergy Mild REACTS Verified 03/18/22 11:17 WITH ANOTHER MED gabapentin Allergy Mild rash Verified 03/18/22 11:17 nickel Allergy Mild Rash Verified 03/18/22 11:17 epinephrine Allergy Unknown reacts to Verified 03/18/22 11:17 a med albuterol AdvReac Unknown unknown Verified 03/18/22 11:17 per pt levalbuterol AdvReac Unknown unknown Verified 03/18/22 11:17 per pt procaine [From Novocain] AdvReac Unknown reacts to Verified 03/18/22 11:17 nardil medication pt is on Tyramine Allergy Severe WAS Uncoded 03/18/22 11:17 BELIEVED IT CAUSED A STROKE Home Medications Medication Instructions Recorded Confirmed Type coenzyme Q10 100 mg capsule 200 mg PO HS 02/05/19 11/03/22 History estradiol 0.01% (0.1 mg/gram) 0.01 % vaginal 2XWK 02/05/19 11/03/22 History vaginal cream lamotrigine 200 mg tablet 200 mg PO HS 02/05/19 11/03/22 History primidone 50 mg tablet 100 mg PO BID 02/05/19 11/03/22 History Lactobacillus 1 cap PO HS 02/07/19 11/03/22 History acidophilus-Bifidobac.animalis 2.5 billion cell capsule (Daily Probiotic) polyethylene glycol 3350 17 17 gm PO UD PRN Constipation 02/07/19 11/03/22 History gram/dose oral powder (Miralax) primidone 50 mg tablet 150 mg PO HS 03/19/19 11/03/22 History raloxifene 60 mg tablet 60 mg PO HS 03/19/19 11/03/22 History clonazepam 1 mg tablet 1 mg PO TID 05/19/19 11/03/22 History calcium carbonate 600 mg-vitamin 2 tab PO HS 10/10/19 11/03/22 History D3 5 mcg (200 unit) tablet (Calcium 600 + D(3)) food supplemt, lactose-reduced 1 ea PO QAM 01/09/20 11/03/22 History (Ensure oral liquid) triamcinolone acetonide 0.1 % 1 applic topical BID PRN Rash 01/17/20 11/03/22 History topical cream omeprazole 20 mg tablet,delayed 20 mg PO QAM 02/27/20 11/03/22 History release acetaminophen 500 mg tablet 1,000 mg PO Q6H PRN Pain 12/31/21 11/03/22 History levothyroxine 50 mcg tablet 50 mcg PO QAM 12/31/21 11/03/22 History dicyclomine 10 mg capsule 10 mg PO BID PRN Abdominal Pain 11/03/22 11/03/22 History famotidine 20 mg tablet 20 mg PO BID 11/03/22 11/03/22 History linaclotide 145 mcg capsule 145 mcg PO DAILY 11/03/22 11/03/22 History (Linzess) rosuvastatin 20 mg tablet 20 mg PO QAM 11/03/22 11/03/22 History Past Med/Surg History Medical History Adrenal insufficiency Anemia Balance problem Bipolar 1 disorder Chronic back pain Constipation COPD (chronic obstructive pulmonary disease) inhaler daily--chronic cough/wheeze daily per pt Degenerative disc disease Diastolic heart failure follows with Dr. Corona [place] Ectopic atrial tachycardia follows Dr. Corona GERD (gastroesophageal reflux disease) Hearing deficit History of subdural hematoma 02/2019 - fall Hypothyroidism Kidney stones hx-passed on own Liver mass PCP FOLLOWING Lumbar compression fracture Lung nodule just monitoring Major depressive disorder (11/01/11) Movement disorder On home oxygen therapy 2L n/c at hs Orthostatic hypotension Osteoarthritis Osteoporosis Pancreatic mass pcp monitoring-hx-"told she no longer has it" Poor memory PTSD (post-traumatic stress disorder) hx Recurrent falls last one 07/2021; bump on head-"leakage noted from previous hematoma" Schizophrenia pt denies-"police didn't believe her when she thought ex- was coming to her apartment daily" Sleep apnea uses O2 @2Liters at bedtime Spasmodic torticollis Spinal stenosis Stroke 1983--numbness of left side of face--follow[place] with Dr. [place] in [facility] [place]has not seen since 2018 Thoracic aortic ectasia follows Dr. Corona Tremor Surgical History H/O esophagogastroduodenoscopy History of appendectomy History of bilateral cataract extraction per pt had it done twice on both eyes History of colonoscopy with polypectomy History of dilation and curettage mult History of laparotomy x2---uterine fibroids History of left heart catheterization (LHC) 2012 @ [facility]--no stents History of tonsillectomy and adenoidectomy History of tooth extraction all upper teeth/most of lower History of transesophageal echocardiography (SHAYE) Hx of tubal ligation S/P subdural hematoma evacuation (~04/2019) [facility] [place] November 2019 pt "unsure about this" Status post glaucoma surgery unsure which eye Family History Brother Family history of diabetes mellitus Family hx colonic polyps Son Family history of diabetes mellitus Aunt Family history of diabetes mellitus Uncle Family history of diabetes mellitus Mother Family hx of colon cancer Sister Family hx of colon cancer Other No family history of adverse response to anesthesia Social History Smoking Status: Former smoker Cigarettes Per Day: 2011; Second Hand Exposure: Yes (as a child); Do You Dip or Chew Tobacco: No; Hx Alcohol Use: Yes Alcohol type: wine and hard liquor Hx Substance Use: No Preferred Language: Danish Communication Ability: Effective [employer] Required: No Beliefs That Will Affect Care: None marital status: Current Living Situation: Alone current occupational status: retired Feels Safe at Home: Yes Safety Concerns: Feels Safe At This Time Assistive Devices: Cane and Walker Review of Systems Review of Systems: ROS per HPI, all other systems reviewed and negative Physical Exam Constitutional: WD/WN, vitals as above Eyes: PERRL, conjunctivae normal, anicteric sclerae ENMT: external ear and nose normal, oropharynx normal Respiratory: normal respiratory effort, lungs clear to auscultation Cardiovascular: Rate/Rhythm: regular rate and regular rhythm Vessels: normal peripheral pulses Extremities: no edema Gastrointestinal (Abdomen): Percussion/Palpation: + abdomen tender (RUQ) and abdomen soft; no guarding, abdomen not rigid and no hepatosplenomegaly Musculoskeletal: no cyanosis or clubbing, extremities motor strength 5/5 Skin: no rashes, warm and dry Neurologic: PERRL, EOMI, accommodation nl, no face palsy, no dysarthria Motor/Sensory: + tremor Psychiatric: A+Ox3, euthymic affect Results & Data Results & Data Vital Signs (Past 12 Hours) Vital Signs Temp Pulse Pulse Resp BP BP Pulse Ox 11/03/22 10:59 11/03/22 10:43 36.4 C L 71 16 100/70 94 11/03/22 10:13 36.9 C 63 18 111/69 95 11/03/22 08:00 59 L 18 109/67 100 11/03/22 07:27 11/03/22 05:34 64 16 115/65 96 11/03/22 04:34 37.0 C 82 16 106/82 94 O2 Del Method O2 Flow Rate 11/03/22 10:59 Room Air, Other 2 11/03/22 10:43 Room Air 11/03/22 10:13 Room Air 11/03/22 08:00 Nasal Cannula 4 11/03/22 07:27 Room Air 11/03/22 05:34 Room Air 11/03/22 04:34 Room Air Laboratory Results Short CBC 11/03/22 Range/Units 04:40 WBC 4.55 L (4.8-10.8) K/ul Hgb 12.0 (12.0-16.0) g/dl Hct 35.4 L (37.0-47.0) % Plt Count 313 (130-400) K/uL BMP 11/03/22 04:40 Sodium 134 L Potassium 3.6 Chloride 101 Carbon Dioxide 29 BUN 11 Creatinine 0.50 L Glucose 98 Calcium 8.7 Liver Function 11/03/22 Range/Units 04:40 Total Bilirubin 0.2 (0.2-1.0) mg/dl AST 26 (13-39) U/L ALT 21 (7-52) U/L Alkaline Phosphatase 36 (34-104) U/L Albumin 3.8 (3.4-5.0) gm/dl Diagnostic Findings Abdomen/Pelvis CT 11/03/22 04:[address] WITH IV CONTRAST CT DOSE: 334.20 mGy.cm HISTORY: Acute right upper quadrant and epigastric abdominal pain RUQ and epigastric abdominal pain TECHNIQUE: Multiaxial CT images of the abdomen and pelvis were performed following the IV administration of 90 cc of Optiray, A dose lowering technique was utilized adhering to the principles of ALARA. COMPARISON STUDY: Ultrasound of same day, CT 10/01/2015, video swallow study 11/02/2012, MRI lumbar spine 02/03/2017. FINDINGS: Cardiomegaly. Mild bibasilar atelectasis. No pneumatosis or pneumoperitoneum. Unremarkable spleen, pancreas and adrenal glands. The gallbladder is distended. No definite cholelithiasis identified by CT. Trace pericholecystic fluid. Intrahepatic and extrahepatic biliary ductal dilation. The common bile duct measures up to approximately 9 mm. No obstructing biliary stone identified. Scattered hepatic cysts are noted measuring up to 1.5 cm. 1.6 cm intermediate density lesion of the right hepatic lobe on image 64 is likely benign however is indeterminate on this single phase study. Patency of the hepatic and portal veins. Unremarkable kidneys. 10 mm cyst of the lateral interpolar right kidney. No hydronephrosis. Moderate bladder wall thickening. Heterogeneity of the uterus with suggested endometrial thickening measuring up to 10 mm. Atherosclerosis of the aorta. No lymphadenopathy identified. Mild nonspecific distal esophageal wall thickening. Limited evaluation of the bowel secondary to retained barium within the colon. Colonic diverticulosis. Nonvisualization of the appendix. Unremarkable soft tissues. Moderate amount of body wall edema. Chronic L1 compression deformity. Moderate L3 compression deformity is new from 2017 with 2 mm retropulsion. IMPRESSION: 1. Limited exam secondary to retained barium within the colon secondary to yesterday's swallow study. 2. Distended gallbladder with trace pericholecystic fluid. Please refer to the same day right upper quadrant ultrasound for additional findings. 3. Mild intrahepatic and extrahepatic biliary ductal dilation without obstructing biliary lesion or stone identified. Correlate with serum bilirubin. 4. Heterogeneous uterus with thickening of the postmenopausal endometrium. Correlation with nonemergent follow-up pelvic ultrasound recommended. 5. Chronic L1 with likely chronic L3 compression deformities. 6. Additional findings as above. ACT 112: Negative or not required by law. The above report was generated using voice recognition software. It may contain grammatical, syntax or spelling errors. Electronically signed by: Golden Israel M.D. 11/03/2022 7:18 AM Gallbladder Ultrasound 11/03/22 04:42 ABDOMINAL ULTRASOUND, RIGHT UPPER QUADRANT HISTORY: Acute right upper quadrant abdominal pain RUQ and epigastric abdominal pain. COMPARISON: CT study of same day FINDINGS: Pancreas: The pancreas demonstrates a normal echotexture. Liver: Hepatic cysts measure up to 1.1 cm. Intrahepatic biliary ductal dilation. Gallbladder: Distended gallbladder with layering sludge and small gallstones. Gallbladder wall measures up to 2 mm. Trace pericholecystic fluid. Sonographic Velez's sign cannot be reported secondary to the patient recently receiving pain medication. 3 mm gallbladder polyp. CBD: 10 mm. Right kidney: No hydronephrosis. IMPRESSION: 1. Distended gallbladder with cholelithiasis, biliary sludge and trace pericho lecystic fluid. No associated gallbladder wall thickening was identified and the sonographic Velez sign was unable to be elicited. Findings could be correlate with nuclear medicine hepatobiliary scan to exclude acute cholecystitis. 2. Mild intrahepatic and extrahepatic biliary ductal dilation. Correlate with serum bilirubin. ACT 112: Negative or not required by law. Electronically signed by: Golden Israel M.D. 11/03/2022 7:19 AM Chest X-Ray 11/03/22 04:43 XR chest 1V portable HISTORY: 72 years-old Female chest pain acute chest and upper abdominal pain COMPARISON: CT abdomen and pelvis of same day TECHNIQUE: AP view of the chest FINDINGS: Cardiomediastinal and hilar silhouettes are within normal limits. No pneumothorax, pleural effusion, airspace consolidation or pulmonary edema. Mild sigmoidal scoliosis of the spine. Bones appear grossly intact. IMPRESSION: No acute process. ACT 112: Negative or not required by law. The above report was generated using voice recognition software. It may contain grammatical, syntax or spelling errors. Electronically signed by: Golden Israel M.D. 11/03/2022 6:47 AM Code Status & VTE Plan VTE Prophylaxis Plan VTE Prophylaxis will be ordered: Yes Supervising Physician Co-Signing Physician Notes Patient seen and examined independently. Discussed with above provider. Patient is a 72-year-old female with past medical history of COPD, nocturnal hypoxia on 2 L of oxygen, hypothyroidism presented to the ED with right upper quadrant abdominal pain The pain radiates to her back and shoulder blade. On examination, she is tender in right upper quadrant Labs reviewed; no leukocytosis. Liver enzymes within normal limits. CT abdomen and pelvis showed distended gallbladder with trace pericholecystic fluid. Right upper quadrant also showed distended gallbladder with cholelithiasis. Surgery consulted; patient to obtain HIDA scan today. Started on Unasyn. EKG reviewed; normal sinus rhythm with nonspecific ST or T wave changes. High sensitive troponin negative. Patient denies any chest pain or shortness of breath. Echocardiogram results from July 2020 reviewed; EF of 60 to 64%, no significant valvular abnormality. Grade 1 diastolic dysfunction present. Based on NSQIP surgical risk calculator; patient is at average risk for perioperative complications if patient undergoes for laparoscopic cholecystomy. (2) Cholelithiasis Cholelithiasis location: gallbladder (10) COPD (chronic obstructive pulmonary disease) COPD type: COPD with acute exacerbation Qualified Code(s): J44.1 - Chronic obstructive pulmonary disease with (acute) exacerbation
--- NOTE | 2022-11-03 12:32 | Electrocardiogram Report ---
Test Reason : Blood Pressure : / mmHG Vent. Rate : 083 BPM Atrial Rate : 083 BPM P-R Int : 178 ms QRS Dur : 078 ms QT Int : 382 ms P-R-T Axes : 050 -74 032 degrees QTc Int : 448 ms Normal sinus rhythm Left axis deviation When compared with ECG of 05-MAR-2022 16:22, Nonspecific T wave abnormality, worse in Anterior leads Confirmed by Andres Lee ([id number]) on 11/03/2022 12:32:23 PM Referred By: REFERRED SELF Confirmed By:Kadeem Lee
[2022-11-03 14:08] LABS: Appearance Urine Cloudy (Clear); Bacteria Urine Automated Negative (Negative); Bilirubin Urine Negative (Negative); Blood Urine Negative (Negative); Color Urine Yellow; Glucose Urine UA Negative (Negative); Ketones Urine Negative (Negative); Leukocyte Esterase Urine Negative (Negative); Nitrite Urine Negative (Negative); Protein Urine Negative (Negative); RBC Urine Automated 0-4 /hpf (0-4); Specific Gravity Urine > 1.045 (1.000-1.030); Urobilinogen Urine Negative (Negative)
[2022-11-03] MEDS ORDERED: MoRPHine SULFATE 2 MG/ML CARP IV STA (14:45)
[2022-11-03] MEDS: AMPICILLIN/SULBACTAM SOD 3,000 MG in 0.9 % SODIUM CHLORIDE 100 ML IV SCH ×3 (15:41→23:55)
--- NOTE | 2022-11-03 15:50 | Nuclear Medicine Report ---
NM hepatobiliary CLINICAL HISTORY: rule out acute lucie TECHNIQUE: Following the intravenous injection of 5.2 mCi of Tc-99m labeled Technetium 99m mebrofeni n, multiple images of the upper abdomen were obtained in the anterior projection with uptake measurem ents of the gallbladder obtained. Morphine was administered. Comparison: None available at the time of this dictation. FINDINGS: Sequential images demonstrate normal uptake in the liver, common bile duct, and small bowel . Following administration of morphine, the gallbladder was seen to fill with radiotracer. No defects in uptake are identified. IMPRESSION: There is uptake of contrast in the gallbladder following morphine administration. No acute cholecysti tis. Reference: Normal gallbladder ejection fraction is greater than 33%. ACT 112: Negative or not required by law. Electronically signed by: Norris Rowell M.D. 11/03/2022 3:49 PM
[2022-11-03] MEDS: PRIMIDONE 50 MG TAB PO SCH (17:21)
[2022-11-03] MEDS: clonazePAM 1 MG TAB PO SCH ×2 (17:21→20:25)
[2022-11-03] MEDS: FAMOTIDINE 20 MG TAB PO SCH (20:26)
[2022-11-03] MEDS ORDERED: RALOXIFENE HCL 60 MG TAB PO SCH (21:00)
[2022-11-03] MEDS ORDERED: PRIMIDONE 50 MG TAB PO SCH (21:00)
[2022-11-03] MEDS ORDERED: lamoTRIgine 100 MG TAB PO SCH (21:00)
[2022-11-04] MEDS: LEVOTHYROXINE SODIUM 50 MCG TABLET PO SCH ×2 (05:32→09:13)
[2022-11-04] MEDS: AMPICILLIN/SULBACTAM SOD 3,000 MG in 0.9 % SODIUM CHLORIDE 100 ML IV SCH ×2 (05:39→12:03)
[2022-11-04] MEDS: D5W AND NSS 1,000 ML IV SCH ×2 (07:17→09:17)
[2022-11-04 08:32] LABS: Basophils # (auto) 0.02 K/uL (0-0.2); Basophils % (auto) 0.2 %; Eosinophils % (auto) 1.1 %; Hematocrit (blood only) 30.5 % (37.0-47.0); Hemoglobin 10.2 g/dl (12.0-16.0); Immature Granulocytes # (auto) 0.04 K/uL (0.01-0.20); Immature Granulocytes % (auto) 0.5 %; Lymphocytes # (auto) 0.82 K/uL (1.2-3.4); Lymphocytes % (auto) 9.3 %; Mean Corpuscular Hemoglobin 31.4 pg (25.0-34.0); Mean Corpuscular Hgb Conc 33.4 g/dL (32.0-36.0); Mean Corpuscular Volume 93.8 fL (80.0-100.0); Mean Platelet Volume 9.5 fL (9.4-12.4); Monocytes # (auto) 0.49 K/uL (0.11-0.59); Monocytes % (auto) 5.6 %; Neutrophils # (auto) 7.31 K/uL (1.40-6.50); Neutrophils % (auto) 83.3 %; Platelet Count 259 K/uL (130-400); RDW Coefficient of Variation 12.2 % (11.5-14.5); RDW Standard Deviation 42.3 fL (36.4-46.3); Red Blood Count 3.25 M/uL (4.20-5.40); White Blood Count 8.78 K/ul (4.8-10.8)
[2022-11-04 08:50] LABS: Albumin Globulin Ratio 1.3 (0.9-2); Albumin Level 3.1 gm/dl (3.4-5.0); BUN Creatinine Ratio 10.6 (10-20); Bilirubin,Total 0.3 mg/dl (0.2-1.0); Calcium 8.1 mg/dl (8.6-10.3); Creatinine Clr Calc Pharmacy 78.8 ml/min; Est GFR (African American) 113.6 ml/min; Globulin 2.4 gm/dl (2.5-4.0); Potassium 4.1 mmol/L (3.5-5.1); Total Protein 5.5 gm/dl (6.0-8.3)
[2022-11-04] MEDS ORDERED: ROSUVASTATIN CALCIUM 20 MG TAB PO SCH (09:00)
[2022-11-04] MEDS ORDERED: PANTOprazole 40 MG TAB PO SCH (09:00)
[2022-11-04] MEDS: FAMOTIDINE 20 MG TAB PO SCH (09:11)
[2022-11-04] MEDS: PRIMIDONE 50 MG TAB PO SCH ×2 (09:12→12:00)
[2022-11-04] MEDS: clonazePAM 1 MG TAB PO SCH ×2 (09:15→13:31)
--- NOTE | 2022-11-04 09:46 | Surgery Progress Note ---
Date of Service November 04, 2022 Assessment & Plan (1) Abdominal pain, RUQ: Plan: No evidence of acute cholecystitis on HIDA scan yesterday afternoon. Clinically improved. We will order a low-fat diet. Is okay from my standpoint for discharge later today if she does well. We will sign off please call if needed. I would recommend she follow-up with me in the office in the near future to discuss potential elective cholecystectomy (2) Cholelithiasis: Admission and Anticipated Discharge Date Admission Date: November 03, 2022 Subjective Patient seen. Feeling much better today. Denies any nausea or pain. She would like something to eat. Physical Exam Constitutional: WD/WN, vitals as above no acute distress and not ill appearing Eyes: PERRL, conjunctivae normal, anicteric sclerae EOM intact bilaterally ENMT: external ear and nose normal, oropharynx normal Ears: no hearing impairment Neck: trachea midline, no thyromegaly Respiratory: normal respiratory effort; no respiratory distress and does not use accessory muscles Cardiovascular: Rate/Rhythm: regular rate and regular rhythm Gastrointestinal (Abdomen): Soft. Nontender. Improved from yesterday Skin: no rashes, warm and dry Psychiatric: Orientation: alert, oriented x 3 and cooperative Results & Data Vital Signs (Past 12 Hours) Vital Signs Temp Pulse Pulse Resp BP Pulse Ox O2 Del Method 11/04/22 08:19 Room Air 11/04/22 07:00 36.5 C 87 16 90/61 L 97 Nasal Cannula 11/03/22 22:28 36.8 C 88 18 95/61 L 95 Room Air 11/03/22 22:25 36.8 C 88 18 85/55 L 94 Room Air 11/03/22 21:48 Room Air O2 Flow Rate 11/04/22 08:19 11/04/22 07:00 2 11/03/22 22:28 11/03/22 22:25 11/03/22 21:48 PG Care Time/CCT Total # of Minutes Spent Total Time Spent with Patient: Total time spent is greater than 50% in coordination of care (as documented) at patient's floor/unit and/or counseling patient: Coding Level of Care Code 32672 SUB INP/OBS CARE 2/35MIN Diagnoses Abdominal pain, RUQ R10.11 Cholelithiasis K80.20 Cholelithiasis location: gallbladder (2) Cholelithiasis Cholelithiasis location: gallbladder
--- NOTE | 2022-11-04 15:59 | Hospitalist Progress Note ---
Date of Service November 04, 2022 Assessment & Plan (1) Abdominal pain, RUQ: (2) Cholelithiasis: (3) Biliary sludge: Plan: per admitting service notes with addendum: Patient presenting from home for evaluation of RUQ abdominal pain. In the ED, RUQ US shows distended gallbladder with cholelithiasis, biliary sludge and trace pericholecystic fluid. Afebrile, no leukocytosis, LFTs WNL Will start empiric IV Unasyn NPO General surgery recommending HIDA scan -- further recommendations to follow 11/04 HIDA scan: negative General surgery : no indication for acute intervention, ff up as outpatient for potential elective cholecystectomy discharge on Augmentin BID x 6 days to complete 1 week course (4) Spasmodic torticollis: (5) Movement disorder: (6) Tremor: Plan: Stable, follows with movement disorder neurology at [facility] [place] Receives Botox onjections Continue home Lamictal, clonazepam (7) Hypothyroid: Plan: Continue levothyroxine (8) Bipolar 1 disorder: (9) Schizophrenia: Plan: Stable, continue home meds (10) COPD (chronic obstructive pulmonary disease): Plan: No signs of acute exacerbation, does not utilize home inhalers Uses 2L O2 HS (11) Osteoporosis: Plan: On raloxifene Disposition d/c home ff up with PCP in 1 week ff up with General Surgery in 1-2 weeks Admission and Anticipated Discharge Date Admission Date: November 03, 2022 Subjective ff up for RUQ pain ,etc seen resting in chair, comfortable in good spirits states she feels much better compared to yesterday RUQ pain is now a one, resolving no nausea/vomiting, chills no other symptoms states she is ready for discharge today Review of Systems Review of Systems: all noted and negative except for above Physical Exam Physical Exam: General- oriented x 3, not in distress, speaks in sentences with no effort or accessory muscle use Eyes- anicteric Neck- no JVD Lungs- clear breath sounds bilaterally, no rales/wheezes Heart- normal rate, regular rhythm; no murmurs Abdomen- normal bowel sounds, nondistended, soft, nontender no Velez's sign Extremities- no pretibial edema, no calf tenderness (+) mild tremors Neuro- alert, oriented x 3; no gross focal neurologic deficits Skin- warm & dry Results & Data Results & Data Vital Signs (Past 12 Hours) Vital Signs Temp Pulse Resp BP Pulse Ox O2 Del Method O2 Flow Rate 11/04/22 08:19 Room Air 11/04/22 07:00 36.5 C 87 16 90/61 L 97 Nasal Cannula 2 all noted and reviewed including below (2) Cholelithiasis Cholelithiasis location: gallbladder (10) COPD (chronic obstructive pulmonary disease) COPD type: COPD with acute exacerbation Qualified Code(s): J44.1 - Chronic obstructive pulmonary disease with (acute) exacerbation
--- NOTE | 2022-11-04 16:09 | Discharge Summary ---
Discharge Summary Date of Service November 04, 2022 Notes For Next Care Provider Patient needs to follow up with General Surgery in 1-2 weeks to discuss possible elective cholecystectomy Medication Changes From Visit Augmentin 875mg BID x 6 days Admission HPI Per Admitting Provider 72 year old female with PMH hypothyroidism, COPD, nocturnal hypoxia on 2L O2 HS, orthostatic hypotension, GERD, esophageal dysmotility, IBS, spasmodic torticollis, movement disorder with chronic tremor, bipolar and schizoaffective disorder, history of traumatic subdural hematoma, and other problems listed below who presents to the ED for evaluation of abdominal pain. Patient states she woke up at 3AM with RUQ abdominal pain. Pain radiated around to her back and up between her shoulder blades. She reports associated nausea and one episode of vomiting in the ED. She denies hematemesis and coffee ground emesis. Patient states she has IBS and struggles with chronic diarrhea and constipation, bowel habits unchanged from baseline. Patient states she has lost about 50 pounds over the past 1 year. Follows with GI and has had EGDs and colonoscopies. Patient denies fever and chills. No chest pain or shortness of breath. Denies lightheadedness, dizziness, diaphoresis, and syncopal events. No urinary symptoms. In the ED, patient is hemodynamically stable, labs are unremarkable. RUQ US shows distended gallbladder with cholelithiasis, biliary sludge and trace pericholecystic fluid. Patient was given pain and nausea medication and IVF. Admission Exam Per Admitting Provider Constitutional: WD/WN, vitals as above Eyes: PERRL, conjunctivae normal, anicteric sclerae ENMT: external ear and nose normal, oropharynx normal Respiratory: normal respiratory effort, lungs clear to auscultation Cardiovascular: Rate/Rhythm: regular rate and regular rhythm Vessels: normal peripheral pulses Extremities: no edema Gastrointestinal (Abdomen): Percussion/Palpation: + abdomen tender (RUQ) and abdomen soft; no guarding, abdomen not rigid and no hepatosplenomegaly Musculoskeletal: no cyanosis or clubbing, extremities motor strength 5/5 Skin: no rashes, warm and dry Neurologic: PERRL, EOMI, accommodation nl, no face palsy, no dysarthria Motor/Sensory: + tremor Psychiatric: A+Ox3, euthymic affect Principal Dx & Hospital Course #1 = Principal Diagnosis (1) Abdominal pain, RUQ: (2) Cholelithiasis: (3) Biliary sludge: per admitting service notes with addendum: Patient presenting from home for evaluation of RUQ abdominal pain. In the ED, RUQ US shows distended gallbladder with cholelithiasis, biliary sludge and trace pericholecystic fluid. Afebrile, no leukocytosis, LFTs WNL start empiric IV Unasyn General surgery recommending HIDA scan -- further recommendations to follow 11/04 HIDA scan: negative General surgery : no indication for acute intervention, ff up as outpatient for potential elective cholecystectomy discharge on Augmentin BID x 6 days to complete 1 week course (4) Abnormal finding on CT scan: Scattered hepatic cysts are noted measuring up to 1.5 cm. 1.6 cm intermediate density lesion of the right hepatic lobe on image 64 is likely benign however is indeterminate on this single phase study. 10 mm cyst of the lateral interpolar right kidney. No hydronephrosis. Moderate bladder wall thickening. Heterogeneity of the uterus with suggested endometrial thickening measuring up to 10 mm. A Mild nonspecific distal esophageal wall thickening. Further work up, management, and ff up as outpatient (5) Spasmodic torticollis: (6) Movement disorder: (7) Tremor: Stable, [place] [facility] [place] Botox onjections Continue home Lamictal, clonazepam (8) Hypothyroid: Continue levothyroxine (9) Bipolar 1 disorder: (10) Schizophrenia: Stable, continue home meds (11) COPD (chronic obstructive pulmonary disease): No signs of acute exacerbation, does not utilize home inhalers Uses 2L O2 HS (12) Osteoporosis: On raloxifene Disposition d/c home ff up with PCP in 1 week ff up with General Surgery in 1-2 weeks Discharge Exam General- oriented x 3, not in distress, speaks in sentences with no effort or accessory muscle use Eyes- anicteric Neck- no JVD Lungs- clear breath sounds bilaterally, no rales/wheezes Heart- normal rate, regular rhythm; no murmurs Abdomen- normal bowel sounds, nondistended, soft, nontender no Velez's sign Extremities- no pretibial edema, no calf tenderness (+) mild tremors Neuro- alert, oriented x 3; no gross focal neurologic deficits Skin- warm & dry Updated Medication List Medication Instructions Recorded Confirmed Type coenzyme Q10 100 mg capsule 200 mg PO HS 02/05/19 11/03/22 History estradiol 0.01% (0.1 mg/gram) 0.01 % vaginal 2XWK 02/05/19 11/03/22 History vaginal cream lamotrigine 200 mg tablet 200 mg PO HS 02/05/19 11/03/22 History primidone 50 mg tablet 100 mg PO BID 02/05/19 11/03/22 History Lactobacillus 1 cap PO HS 02/07/19 11/03/22 History acidophilus-Bifidobac.animalis 2.5 billion cell capsule (Daily Probiotic) polyethylene glycol 3350 17 17 gm PO UD PRN Constipation 02/07/19 11/03/22 History gram/dose oral powder (Miralax) primidone 50 mg tablet 150 mg PO HS 03/19/19 11/03/22 History raloxifene 60 mg tablet 60 mg PO HS 03/19/19 11/03/22 History clonazepam 1 mg tablet 1 mg PO TID 05/19/19 11/03/22 History calcium carbonate 600 mg-vitamin 2 tab PO HS 10/10/19 11/03/22 History D3 5 mcg (200 unit) tablet (Calcium 600 + D(3)) food supplemt, lactose-reduced 1 ea PO QAM 01/09/20 11/03/22 History (Ensure oral liquid) triamcinolone acetonide 0.1 % 1 applic topical BID PRN Rash 01/17/20 11/03/22 History topical cream omeprazole 20 mg tablet,delayed 20 mg PO QAM 02/27/20 11/03/22 History release acetaminophen 500 mg tablet 1,000 mg PO Q6H PRN Pain 12/31/21 11/03/22 History levothyroxine 50 mcg tablet 50 mcg PO QAM 12/31/21 11/03/22 History dicyclomine 10 mg capsule 10 mg PO BID PRN Abdominal Pain 11/03/22 11/03/22 History famotidine 20 mg tablet 20 mg PO BID 11/03/22 11/03/22 History linaclotide 145 mcg capsule 145 mcg PO DAILY 11/03/22 11/03/22 History (Linzess) rosuvastatin 20 mg tablet 20 mg PO QAM 11/03/22 11/03/22 History amoxicillin 875 mg-potassium 1 tab PO BID 6 days #12 tabs 11/04/22 Rx clavulanate 125 mg tablet Hospital Stay Data Consultations 11/03/22 08:01 ED Decision to Admit Stat 11/03/22 10:43 Consult General Surgery Routine Diagnostic Imagining Performed 11/03/22 04:42 CT abd pelvis IV con only Stat COMPARISON STUDY: Ultrasound of same day, CT 10/01/2015, video swallow study 11/02/2012, MRI lumbar spine 02/03/2017. FINDINGS: Cardiomegaly. Mild bibasilar atelectasis. No pneumatosis or pneumoperitoneum. Unremarkable spleen, pancreas and adrenal glands. The gallbladder is distended. No definite cholelithiasis identified by CT. Trace pericholecystic fluid. Intrahepatic and extrahepatic biliary ductal dilation. The common bile duct measures up to approximately 9 mm. No obstructing biliary stone identified. Scattered hepatic cysts are noted measuring up to 1.5 cm. 1.6 cm intermediate density lesion of the right hepatic lobe on image 64 is likely benign however is indeterminate on this single phase study. Patency of the hepatic and portal veins. Unremarkable kidneys. 10 mm cyst of the lateral interpolar right kidney. No hydronephrosis. Moderate bladder wall thickening. Heterogeneity of the uterus with suggested endometrial thickening measuring up to 10 mm. Atherosclerosis of the aorta. No lymphadenopathy identified. Mild nonspecific distal esophageal wall thickening. Limited evaluation of the bowel secondary to retained barium within the colon. Colonic diverticulosis. Nonvisualization of the appendix. Unremarkable soft tissues. Moderate amount of body wall edema. Chronic L1 compression deformity. Moderate L3 compression deformity is new from 2017 with 2 mm retropulsion. IMPRESSION: 1. Limited exam secondary to retained barium within the colon secondary to yesterday's swallow study. 2. Distended gallbladder with trace pericholecystic fluid. Please refer to the same day right upper quadrant ultrasound for additional findings. 3. Mild intrahepatic and extrahepatic biliary ductal dilation without obstructing biliary lesion or stone identified. Correlate with serum bilirubin. 4. Heterogeneous uterus with thickening of the postmenopausal endometrium. Correlation with nonemergent follow-up pelvic ultrasound recommended. 5. Chronic L1 with likely chronic L3 compression deformities. 6. Additional findings as above. ACT 112: Negative or not required by law. US gallbladder Stat FINDINGS: Pancreas: The pancreas demonstrates a normal echotexture. Liver: Hepatic cysts measure up to 1.1 cm. Intrahepatic biliary ductal dilation. Gallbladder: Distended gallbladder with layering sludge and small gallstones. Gallbladder wall measures up to 2 mm. Trace pericholecystic fluid. Sonographic Velez's sign cannot be reported secondary to the patient recently receiving pain medication. 3 mm gallbladder polyp. CBD: 10 mm. Right kidney: No hydronephrosis. IMPRESSION: 1. Distended gallbladder with cholelithiasis, biliary sludge and trace pericholecystic fluid. No associated gallbladder wall thickening was identified and the sonographic Velez sign was unable to be elicited. Findings could be correlate with nuclear medicine hepatobiliary scan to exclude acute cholecystitis. 2. Mild intrahepatic and extrahepatic biliary ductal dilation. Correlate with serum bilirubin. ACT 112: Negative or not required by law. Pending Results Patient Have Any Pending Studies at Discharge: No Discharge Instructions Given to Patient (Per Discharging Provider) PLEASE REFER TO YOUR NEW MEDICATION LIST AND FOLLOW INSTRUCTIONS CAREFULLY. YOUR NEW MEDICATION INCLUDE: Augmentin- antibiotic for gallbladder stones with possible mild infection PLEASE CALL YOUR PRIMARY CARE PHYSICIAN OR RETURN TO THE ER IF WITH WORSENING OF SYMPTOMS, INCLUDING persistent, worsening abdominal pain ,back/flank pain, nausea/vomiting, fever/chills, etc FOLLOW UP WITH PRIMARY CARE PHYSICIAN OUTLINED ABOVE. Total Time Total Time Spent Total Time Spent (In Minutes): >30 minutes
== END 2022-11-04 14:37 | disposition home or self-care (01) ==
LOC: 3N 04:29 → ED 04:29 → SUATTDRO 08:15 → 3N 10:13

== ENCOUNTER 2022-11-20 00:27 | Inpatient (IN) ==
[2022-11-20 00:51] LABS: Basophils # (auto) 0.03 K/uL (0-0.2); Basophils % (auto) 0.6 %; Eosinophils # (auto) 0.09 K/uL (0-0.50); Eosinophils % (auto) 1.8 %; Hematocrit (blood only) 33.6 % (37.0-47.0); Hemoglobin 11.5 g/dl (12.0-16.0); Immature Granulocytes # (auto) 0.02 K/uL (0.01-0.20); Immature Granulocytes % (auto) 0.4 %; Lymphocytes # (auto) 1.67 K/uL (1.2-3.4); Lymphocytes % (auto) 34.2 %; Mean Corpuscular Hemoglobin 31.5 pg (25.0-34.0); Mean Corpuscular Hgb Conc 34.2 g/dL (32.0-36.0); Mean Corpuscular Volume 92.1 fL (80.0-100.0); Mean Platelet Volume 9.8 fL (9.4-12.4); Monocytes # (auto) 0.29 K/uL (0.11-0.59); Monocytes % (auto) 5.9 %; Neutrophils # (auto) 2.78 K/uL (1.40-6.50); Neutrophils % (auto) 57.1 %; Platelet Count 331 K/uL (130-400); RDW Coefficient of Variation 11.8 % (11.5-14.5); RDW Standard Deviation 39.9 fL (36.4-46.3); Red Blood Count 3.65 M/uL (4.20-5.40); White Blood Count 4.88 K/ul (4.8-10.8)
[2022-11-20 01:05] LABS: Albumin Globulin Ratio 1.3 (0.9-2); Albumin Level 3.8 gm/dl (3.4-5.0); Bilirubin,Total 0.3 mg/dl (0.2-1.0); Calcium 8.7 mg/dl (8.6-10.3); Creatinine Clr Calc Pharmacy 83.1 ml/min; Est GFR (African American) 114.4 ml/min; Est GFR (Non-African American) 98.7 ml/min; Potassium 3.8 mmol/L (3.5-5.1); Total Protein 6.8 gm/dl (6.0-8.3)
[2022-11-20] MEDS ORDERED: SODIUM CHLORIDE 0.9% 500 ML IV ONE (04:36)
[2022-11-20] MEDS ORDERED: ONDANSETRON INJ 2 MG/ML 2 ML VIAL IV STA (04:36)
[2022-11-20] MEDS ORDERED: HYDROmorphone INJ 0.5 MG/0.5 ML SYR IV STA (04:36)
[2022-11-20] MEDS: SODIUM CHLORIDE 0.9% 500 ML IV SCH ×2 (04:44→08:43)
[2022-11-20 05:05] LABS: Appearance Urine Clear (Clear); Bilirubin Urine Negative (Negative); Blood Urine Negative (Negative); Color Urine Yellow; Glucose Urine UA Negative (Negative); Ketones Urine Negative (Negative); Leukocyte Esterase Urine Negative (Negative); Nitrite Urine Negative (Negative); Protein Urine Negative (Negative); Specific Gravity Urine 1.007 (1.000-1.030); Urobilinogen Urine Negative (Negative); pH Urine 7.5 (4.5-7.5)
--- NOTE | 2022-11-20 08:49 | History & Physical Report ---
Date of Service November 20, 2022 Assessment & Plan (1) Cholelithiasis: Plan: Worsening pain over the past few days, intermittent and resolving but occurring more frequently. As pain has resolved now, we did discuss option of waiting until December 09 but she is likely to have frequent episodes of pain between now and then. It is also very reasonable to remove her gallbladder today to prevent worsening symptoms. Risks of the procedure including bleeding, infection, co nversion to open,need for ercp for bile leak or retained stone, change in bowel habits all discussed. Consent signed. Expected postop recovery discussed also with her son via telephone. Will plan on keeping overnight as she lives alone with plans for discharge tomorrow pending operative results. (2) Abdominal pain, RUQ: Plan: due to gallbladder History of Present Illness Chief Complaint: right upper quadrant abdominal pain Primary Care Provider: López Edward MD 72 yr old woman scheduled for laparoscopic cholecystectomy in late November with Dr. Pelaez admitted with worsening right upper quadrant abdominal pain. She was seen in the ER for the same in mid October at which time a HIDA scan was negative. Presents today with pain that started yesterday, focused in the right upper quadrant, very intense. Notes she had an attack on Tuesday which kept her awake all night. This attack started yesterday, pain radiated to back, relieved by pain medications, associated with nausea. No precipitating factors. Taking ensure due to 50 lb weight loss over past year - has been undergoing evaluation for this with her primary. PSHx notable for exploratory lap, fibroid removal, appendectomy for carcinoid tumor in the . Last surgery was in the . Allergies Allergy/AdvReac Type Severity Reaction Status Date / Time topiramate Allergy Severe BREATHING Verified 11/20/22 02:14 PROBLEM & EYE PROBLEMS. adhesive Allergy Intermediate RASH, Verified 11/20/22 02:14 BLISTER beclomethasone [From Qvar] Allergy Intermediate swelling Verified 11/20/22 02:14 of lip doxycycline Allergy Intermediate rash Verified 11/20/22 02:14 gabapentin Allergy Intermediate rash Verified 11/20/22 02:14 nickel Allergy Intermediate Rash Verified 11/20/22 02:14 albuterol AdvReac Unknown unknown Verified 11/20/22 02:14 per pt ephedrine AdvReac Unknown REACTS Verified 11/20/22 02:14 WITH ANOTHER MED epinephrine AdvReac Unknown reacts to Verified 11/20/22 02:14 a med levalbuterol AdvReac Unknown unknown Verified 11/20/22 02:14 per pt procaine [From Novocain] AdvReac Unknown reacts to Verified 11/20/22 02:14 nardil medication pt is on Tyramine Allergy Severe WAS Uncoded 11/20/22 02:14 BELIEVED IT CAUSED A STROKE Home Medications Medication Instructions Recorded Confirmed Type coenzyme Q10 100 mg capsule 200 mg PO HS 02/05/19 11/20/22 History estradiol 0.01% (0.1 mg/gram) 0.01 % vaginal 2XWK 02/05/19 11/20/22 History vaginal cream lamotrigine 200 mg tablet 200 mg PO HS 02/05/19 11/20/22 History primidone 50 mg tablet 100 mg PO BID 02/05/19 11/20/22 History Lactobacillus 1 cap PO HS 02/07/19 11/20/22 History acidophilus-Bifidobac.animalis 2.5 billion cell capsule (Daily Probiotic) polyethylene glycol 3350 17 17 gm PO UD PRN Constipation 02/07/19 11/20/22 History gram/dose oral powder (Miralax) primidone 50 mg tablet 150 mg PO HS 03/19/19 11/20/22 History raloxifene 60 mg tablet 60 mg PO HS 03/19/19 11/20/22 History clonazepam 1 mg tablet 1 mg PO TID 05/19/19 11/20/22 History calcium carbonate 600 mg-vitamin 2 tab PO HS 10/10/19 11/20/22 History D3 5 mcg (200 unit) tablet (Calcium 600 + D(3)) food supplemt, lactose-reduced 1 ea PO QAM 01/09/20 11/20/22 History (Ensure oral liquid) triamcinolone acetonide 0.1 % 1 applic topical BID PRN Rash 01/17/20 11/20/22 History topical cream omeprazole 20 mg tablet,delayed 20 mg PO QAM 02/27/20 11/20/22 History release acetaminophen 500 mg tablet 1,000 mg PO Q6H PRN Pain 12/31/21 11/20/22 History levothyroxine 50 mcg tablet 50 mcg PO QAM 12/31/21 11/20/22 History dicyclomine 10 mg capsule 10 mg PO BID PRN Abdominal Pain 11/03/22 11/20/22 History famotidine 20 mg tablet 20 mg PO BID 11/03/22 11/20/22 History linaclotide 145 mcg capsule 145 mcg PO DAILY 11/03/22 11/20/22 History (Linzess) rosuvastatin 20 mg tablet 20 mg PO QAM 11/03/22 11/20/22 History Past Med/Surg History Medical History Actinic keratitis Actinic keratosis Adrenal insufficiency Anemia Anxiety Balance problem Bipolar 1 disorder Chest pain of unknown etiology Chronic back pain Chronic obstructive pulmonary disease Constipation COPD (chronic obstructive pulmonary disease) inhaler daily--chronic cough/wheeze daily per pt Cough Degenerative disc disease Depression Diastolic heart failure follows with Dr. Corona Dysphagia Dystonia Ectopic atrial tachycardia follows Dr. Corona Esophageal reflux Generalized osteoarthritis of multiple sites GERD (gastroesophageal reflux disease) GERD (gastroesophageal reflux disease) Hearing deficit History of subdural hematoma 02/2019 - fall Hypothyroidism Hypothyroidism Kidney stones hx-passed on own Limb pain Liver mass PCP FOLLOWING Lumbar compression fracture Lung nodule just monitoring Major depressive disorder (11/01/11) Movement disorder Mucocele of lip Neuropathic tremor Nocturnal hypoxia On home oxygen therapy 2L n/c at hs Orthostatic hypotension Orthostatic hypotension Osteoarthritis Osteoporosis Osteoporosis Pancreatic mass pcp monitoring-hx-"told she no longer has it" Poor memory PTSD (post-traumatic stress disorder) hx Pulmonary emphysema Recurrent falls last one 07/2021; bump on head-"leakage noted from previous hematoma" Schizophrenia pt denies-"police didn't believe her when she thought ex- was coming to her apartment daily" Seborrheic keratosis Shortness of breath Sleep apnea uses O2 @2Liters at bedtime Spasmodic torticollis Spinal stenosis Stroke 1983--numbness of left side of face--follows with Dr. Lopez in [facility] [place]-has not seen since 2018 Thoracic aortic ectasia follows Dr. Corona Tobacco use Tremor Vitamin D deficiency Surgical History H/O esophagogastroduodenoscopy History of appendectomy History of bilateral cataract extraction per pt had it done twice on both eyes History of colonoscopy with polypectomy History of dilation and curettage mult History of laparotomy x2---uterine fibroids History of left heart catheterization (LHC) 2012 @ [facility]--no stents History of tonsillectomy and adenoidectomy History of tooth extraction all upper teeth/most of lower History of transesophageal echocardiography (SHAYE) Hx of tubal ligation S/P subdural hematoma evacuation (~04/2019) [facility] [place] > November 2019 pt "unsure about this" Status post glaucoma surgery unsure which eye Family History Brother Family history of diabetes mellitus Family hx colonic polyps Son Family history of diabetes mellitus Aunt Family history of diabetes mellitus Uncle Family history of diabetes mellitus Mother Family hx of colon cancer Cancer Hypertension Sister Family hx of colon cancer Colorectal cancer Other No family history of adverse response to anesthesia Social History Smoking Status: Former smoker Age Started Using Tobacco: 37; Age Quit Using Tobacco: 62; packs per day: 1.5; Second Hand Exposure: Yes (as a child); Do You Dip or Chew Tobacco: No; Hx Alcohol Use: Yes Alcohol type: wine and hard liquor Alcohol Intake Frequency: Monthly or Less Hx Substance Use: No Preferred Language: Syriac Communication Ability: Effective Paperhanger Assistant Required: No Beliefs That Will Affect Care: None marital status: Current Living Situation: Alone current occupational status: retired How many Children do You have: 3 Feels Safe at Home: Yes Assistive Devices: Cane, Oxygen - at Night and Walker Review of Systems Review of Systems: All systems reviewed & are unremarkable except as noted in HPI & below Constitutional: + weight loss Cardiovascular: no chest pain and no dyspnea Additional Comments: diastolic dysfunction Psychiatric: bipolar Physical Exam Constitutional: WD/WN, vitals as above Eyes: PERRL, conjunctivae normal, anicteric sclerae Neck: trachea midline, no thyromegaly Respiratory: normal respiratory effort, lungs clear to auscultation Cardiovascular: RRR, no murmur, no edema Gastrointestinal (Abdomen): Inspection/Auscultation: abdomen normal to inspection, normal bowel sounds and + abdominal surgical scar (lower midline); abdomen not distended Percussion/Palpation: abdomen soft; abdomen nontender and no guarding Musculoskeletal: no cyanosis or clubbing, extremities motor strength 5/5 Neurologic: awake; no focal motor deficits Results & Data Results & Data Vital Signs (Past 12 Hours) Vital Signs Temp Pulse Pulse Resp BP BP Pulse Ox 11/20/22 08:44 62 12 109/70 97 11/20/22 07:23 72 18 107/71 93 11/20/22 06:20 66 16 104/68 94 11/20/22 05:37 75 16 99/66 L 98 11/20/22 04:57 74 16 106/69 94 11/20/22 04:17 83 20 111/75 97 11/20/22 02:19 72 16 98/62 L 95 11/20/22 01:19 65 16 95/67 L 94 11/20/22 00:17 36.8 C 77 16 99/69 L 94 O2 Del Method 11/20/22 08:44 Room Air 11/20/22 07:23 Room Air 11/20/22 06:20 Room Air 11/20/22 05:37 Room Air 11/20/22 04:57 Room Air 11/20/22 04:17 Room Air 11/20/22 02:19 Room Air 11/20/22 01:19 Room Air 11/20/22 00:17 Room Air Laboratory Results Abnormal lab results 11/20/22 11/20/22 Range/Units 00:33 00:33 RBC 3.65 L (4.20-5.40) M/uL Hgb 11.5 L (12.0-16.0) g/dl Hct 33.6 L (37.0-47.0) % Sodium 133 L (136-145) mmol/L Creatinine 0.46 L (0.6-1.2) mg/dl BUN/Creatinine Ratio 37.0 H (10-20) AST 297 H (13-39) U/L ALT 175 H (7-52) U/L Code Status & VTE Plan VTE Prophylaxis Plan VTE Prophylaxis will be ordered: Yes (1) Cholelithiasis Cholelithiasis location: gallbladder
[2022-11-20] MEDS ORDERED: PROMETHAZINE HCL 12.5 MG in SODIUM CHLORIDE 0.9% 50 ML IV PRN (10:21)
[2022-11-20] MEDS ORDERED: MoRPHine SULFATE 2 MG/ML CARP IV PRN (10:21)
[2022-11-20] MEDS ORDERED: MoRPHine SULFATE 4 MG/ML 1 ML CARP\\VIAL IV PRN (10:21)
[2022-11-20] MEDS ORDERED: oxyCODONE/ACETAMINOPHEN 5mg/325mg TAB PO PRN ×2 (10:21)
[2022-11-20] MEDS ORDERED: POLYETHYLENE (MIRALAX) 17 GM PACK PO PRN (10:21)
[2022-11-20] MEDS ORDERED: BUPIVACAINE 0.5 % 5 MG/1 ML MPF 30ML VIAL ONE (10:25)
[2022-11-20] MEDS ORDERED: LIDOCAINE 2% 2 ML VIAL/AMP(20MG/ML) INFIL ONE (10:31)
[2022-11-20] MEDS ORDERED: PROPOFOL IV EMULSION 10 MG/ML 20 ML VIAL IV ONE (10:31)
[2022-11-20] MEDS ORDERED: ONDANSETRON INJ 2 MG/ML 2 ML VIAL ONE (10:31)
[2022-11-20] MEDS ORDERED: ROCURONIUM BROMIDE 10 MG/ML 5 ML VIAL IV ONE (10:32)
[2022-11-20] MEDS ORDERED: fentaNYL citrate PF 100 MCG/2 ML VIAL ONE ×2 (10:32→12:34)
[2022-11-20] MEDS ORDERED: MIDAZOLAM HCL 1 MG/ML 2ML VIAL ONE (10:32)
[2022-11-20] MEDS ORDERED: ONDANSETRON INJ 2 MG/ML 2 ML VIAL IV PRN (10:35)
[2022-11-20] MEDS ORDERED: PROMETHAZINE HCL 6.25 MG in SODIUM CHLORIDE 0.9% 50 ML IV PRN (10:35)
[2022-11-20] MEDS ORDERED: ePHEDrine sulfate 50 MG/ML AMP IV PRN (10:35)
[2022-11-20] MEDS ORDERED: ATROPINE SULFATE 0.1 MG/ML 10ML SYR IV PRN (10:35)
--- NOTE | 2022-11-20 10:35 | Anesthesiology Consultation ---
Date of Service November 20, 2022 Assessment & Plan (1) Encounter for pre-operative examination: Chart Review Chart Review: Acceptable Risk for Surgery and Patient NOT seen in Pre Admission Testing Consults Requested none History Surgery Operation Date: 11/20/22 10:10 Proposed Procedures p Laparoscopic Cholecystectomy - Yue Morales MD Height/Weight Height: 5 ft 3 in Weight: 48.3 kg Allergies Allergy/AdvReac Type Severity Reaction Status Date / Time topiramate Allergy Severe BREATHING Verified 11/20/22 02:14 PROBLEM & EYE PROBLEMS. adhesive Allergy Intermediate RASH, Verified 11/20/22 02:14 BLISTER beclomethasone [From Qvar] Allergy Intermediate swelling Verified 11/20/22 02:14 of lip doxycycline Allergy Intermediate rash Verified 11/20/22 02:14 gabapentin Allergy Intermediate rash Verified 11/20/22 02:14 nickel Allergy Intermediate Rash Verified 11/20/22 02:14 albuterol AdvReac Unknown unknown Verified 11/20/22 02:14 per pt ephedrine AdvReac Unknown REACTS Verified 11/20/22 02:14 WITH ANOTHER MED epinephrine AdvReac Unknown reacts to Verified 11/20/22 02:14 a med levalbuterol AdvReac Unknown unknown Verified 11/20/22 02:14 per pt procaine [From Novocain] AdvReac Unknown reacts to Verified 11/20/22 02:14 nardil medication pt is on Tyramine Allergy Severe WAS Uncoded 11/20/22 02:14 BELIEVED IT CAUSED A STROKE Medications Home Medications Medication Instructions Recorded Confirmed Last Taken coenzyme Q10 100 mg capsule 200 mg PO HS 02/05/19 11/20/22 11/18/22 estradiol 0.01% (0.1 mg/gram) 0.01 % vaginal 2XWK 02/05/19 11/20/22 4 Days Ago vaginal cream ~10/30/22 lamotrigine 200 mg tablet 200 mg PO HS 02/05/19 11/20/22 11/18/22 primidone 50 mg tablet 100 mg PO BID 02/05/19 11/20/22 11/19/22 08:00 Lactobacillus 1 cap PO HS 02/07/19 11/20/22 11/18/22 acidophilus-Bifidobac.animalis 2.5 billion cell capsule (Daily Probiotic) polyethylene glycol 3350 17 17 gm PO UD PRN Constipation 02/07/19 11/20/22 1 Week Ago gram/dose oral powder (Miralax) ~10/27/22 primidone 50 mg tablet 150 mg PO HS 03/19/19 11/20/22 11/18/22 raloxifene 60 mg tablet 60 mg PO HS 03/19/19 11/20/22 11/18/22 clonazepam 1 mg tablet 1 mg PO TID 05/19/19 11/20/22 11/19/22 14:00 calcium carbonate 600 mg-vitamin 2 tab PO HS 10/10/19 11/20/22 11/18/22 D3 5 mcg (200 unit) tablet (Calcium 600 + D(3)) food supplemt, lactose-reduced 1 ea PO QAM 01/09/20 11/20/22 11/19/22 (Ensure oral liquid) triamcinolone acetonide 0.1 % 1 applic topical BID PRN Rash 01/17/20 11/20/22 01/06/22 22:00 topical cream omeprazole 20 mg tablet,delayed 20 mg PO QAM 02/27/20 11/20/22 11/19/22 release acetaminophen 500 mg tablet 1,000 mg PO Q6H PRN Pain 12/31/21 11/20/22 11/01/22 levothyroxine 50 mcg tablet 50 mcg PO QAM 12/31/21 11/20/22 11/19/22 dicyclomine 10 mg capsule 10 mg PO BID PRN Abdominal Pain 11/03/22 11/20/22 11/02/22 famotidine 20 mg tablet 20 mg PO BID 11/03/22 11/20/22 11/19/22 08:00 linaclotide 145 mcg capsule 145 mcg PO DAILY 11/03/22 11/20/22 11/19/22 (Linzess) rosuvastatin 20 mg tablet 20 mg PO QAM 11/03/22 11/20/22 11/19/22 Past Medical History Medical History Actinic keratitis Actinic keratosis Adrenal insufficiency Anemia Anxiety Balance problem Bipolar 1 disorder Chest pain of unknown etiology Chronic back pain Chronic obstructive pulmonary disease Constipation COPD (chronic obstructive pulmonary disease) inhaler daily--chronic cough/wheeze daily per pt Cough Degenerative disc disease Depression Diastolic heart failure follows with Dr. Corona Dysphagia Dystonia Ectopic atrial tachycardia follows Dr. Corona Esophageal reflux Generalized osteoarthritis of multiple sites GERD (gastroesophageal reflux disease) GERD (gastroesophageal reflux disease) Hearing deficit History of subdural hematoma 02/2019 - fall Hypothyroidism Hypothyroidism Kidney stones hx-passed on own Limb pain Liver mass PCP FOLLOWING Lumbar compression fracture Lung nodule just monitoring Major depressive disorder (11/01/11) Movement disorder Mucocele of lip Neuropathic tremor Nocturnal hypoxia On home oxygen therapy 2L n/c at hs Orthostatic hypotension Orthostatic hypotension Osteoarthritis Osteoporosis Osteoporosis Pancreatic mass pcp monitoring-hx-"told she no longer has it" Poor memory PTSD (post-traumatic stress disorder) hx Pulmonary emphysema Recurrent falls last one 07/2021; bump on head-"leakage noted from previous hematoma" Schizophrenia pt denies-"police didn't believe her when she thought ex- was coming to her apartment daily" Seborrheic keratosis Shortness of breath Sleep apnea uses O2 @2Liters at bedtime Spasmodic torticollis Spinal stenosis Stroke 1983--numbness of left side of face--[place] [facility] [place] since 2018 Thoracic aortic ectasia follows Dr. Corona Tobacco use Tremor Vitamin D deficiency Past Family History Family History Brother Family history of diabetes mellitus Family hx colonic polyps Son Family history of diabetes mellitus Aunt Family history of diabetes mellitus Uncle Family history of diabetes mellitus Mother Family hx of colon cancer Cancer Hypertension Sister Family hx of colon cancer Colorectal cancer Other No family history of adverse response to anesthesia Past Surgical History Surgical History H/O esophagogastroduodenoscopy History of appendectomy History of bilateral cataract extraction per pt had it done twice on both eyes History of colonoscopy with polypectomy History of dilation and curettage mult History of laparotomy x2---uterine fibroids History of left heart catheterization (LHC) 2012 @ [facility]--no stents History of tonsillectomy and adenoidectomy History of tooth extraction all upper teeth/most of lower History of transesophageal echocardiography (SHAYE) Hx of tubal ligation S/P subdural hematoma evacuation (~04/2019) [facility] [place] pt "unsure about this" Status post glaucoma surgery unsure which eye Social History Smoking Status: Former smoker tobacco type: cigarettes and e-cigarettes Do You Dip or Chew Tobacco: No Hx Alcohol Use: Yes Alcohol type: wine and hard liquor alcohol intake frequency: holidays/special occasions only Hx Substance Use: No substance use type: does not use Physical Exam Vital Signs Last Vital Signs Temp 97.3 F L 11/20/22 10:24 Pulse 62 11/20/22 10:24 Resp 14 11/20/22 10:24 BP 100/69 11/20/22 10:24 Pulse Ox 96 11/20/22 10:24 O2 Del Method Room Air 11/20/22 10:24 Testing Laboratory Results 11/20/22 00:33 11/20/22 00:33 Urine Color Yellow 11/20/22 04:40 Urine Appearance Clear (Clear) 11/20/22 04:40 Urine pH 7.5 (4.5-7.5) 11/20/22 04:40 Ur Specific [place] 1.007 (1.000-1.030) 11/20/22 04:40 Urine Protein Negative (Negative) 11/20/22 04:40 Urine Glucose (UA) Negative (Negative) 11/20/22 04:40 Urine Ketones Negative (Negative) 11/20/22 04:40 Urine Nitrite Negative (Negative) 11/20/22 04:40 Ur Leukocyte Esterase Negative (Negative) 11/20/22 04:40 Electrocardiogram Date: 12/03/22 Findings: + NSR @ Chest X-Ray Date: 11/03/22 Findings: + NAD Echocardiogram Date: 08/04/20 EF: 60-64 LV Function: normal
[2022-11-20] MEDS ORDERED: ceFAZolin 330 MG/ML 1 GM VIAL IV ONE (11:33)
[2022-11-20] MEDS ORDERED: ceFAZolin 330 MG/ML 1 GM VIAL ONE (11:51)
[2022-11-20] MEDS ORDERED: AMPICILLIN/SULBACTAM SOD 3,000 MG in 0.9 % SODIUM CHLORIDE 100 ML IV SCH (12:00)
--- NOTE | 2022-11-20 12:17 | Operative Report ---
Post Operative Report Pre & Post Diagnosis Operation Date: 11/20/22 10:10 Pre-Op Diagnosis: ACUTE CHOLECYSTITIS Post-Op Diagnosis: ACUTE CHOLECYSTITIS I identified the patient and participated in the time-out.: Yes Procedure Operation Date: 11/20/22 10:10 Actual Procedures p Laparoscopic Cholecystectomy(Not Applicable) - Yue Morales MD Surgeon Yue Morales MD Student Activities Director none Estimated Blood Loss 5 Findings Consistent with Post-Op Diagnosis edematous gallbladder wall Fluids 800 cc IVF Specimens gallbladder and contents Drains none Anesthesia Type General Complications none Disposition Accompanied Patient To Recovery: No Disposition: Recovery Room Indications 72 yr old woman with cholelithiasis and recurring abdominal pain. Most recent episode led to ER visit and admission for observation due to persistent pain yesterday Consented for laparoscopic cholecystectomy. Description of Procedure The patient received Ancef preoperatively after the induction of general endotracheal anesthesia, she had placement of sequential compression devices. Her abdomen was then sterilely prepped and draped. She was positioned in Trendelenburg. A supraumbilical incision was made and a Veress needle placed into the peritoneal cavity. This was tested with a saline drop test. Initial pressure was 0 mmHg and this was taken up to 15 mmHg. A 5 mm trocar was placed with the camera through the trocar site. The patient's position was then switched to reverse Trendelenburg. A 11 mm trocar was placed in the epigastrium and 2 5 mm on the right side of the abdomen. There was some evidence of omental adhesions to the right lower midline incision. No bowel was involved in the adhesions. The umbilical trocar was knocked within an adhesion. The gallbladder was grasped and retracted over the edge of the liver. A dissection was begun at the triangle of Calot and the cystic duct and cystic artery identified. Critical views were seen anteriorly and posteriorly. The cystic duct was doubly clipped with a 10 mm medium large clip boarding room fixer this was then divided. The cystic artery was similarly clipped and divided. A small branch of an artery was clipped and divided. The gallbladder was dissected off the li awa bed without any difficulty. It was placed in Endobag and removed through the epigastric incision. The abdomen was irrigated and suctioned until it was clear. No bleeding was noted. The trocars were removed. The fascia of the epigastric incision was closed with 0 Vicryl stitches placed anteriorly. The skin of all 4 incisions was closed with running subcuticular 4-0 Vicryl suture. Dermabond and sterile dressings were applied. The patient tolerated the procedure well and was taken to recovery in stable condition. I attest to the content of the Intraoperative Record and any orders documented therein. Any exceptions are noted below.
[2022-11-20] MEDS: fentaNYL citrate PF 100 MCG/2 ML VIAL IV PRN ×2 (12:33→12:38)
[2022-11-20] MEDS ORDERED: DICYCLOMINE HCL 10 MG CAP PO PRN (13:19)
--- NOTE | 2022-11-20 14:05 | Anesthesiology Progress Note ---
Date of Service November 20, 2022 Anesthesia Post Procedure Vital Signs Vital Signs: Temp Pulse Pulse Pulse Pulse Resp BP 11/20/22 13:50 98.1 F 57 L 14 11/20/22 13:21 97.9 F 49 L 16 11/20/22 12:55 97.5 F L 58 L 19 11/20/22 12:45 58 L 14 11/20/22 12:35 63 12 11/20/22 13:05 50 L 18 11/20/22 12:26 97.2 F L 74 16 11/20/22 10:24 97.3 F L 62 14 11/20/22 09:43 62 18 11/20/22 08:44 62 12 11/20/22 07:23 72 18 11/20/22 06:20 66 16 11/20/22 05:37 75 16 11/20/22 04:57 74 16 11/20/22 04:17 83 20 11/20/22 02:19 72 16 11/20/22 01:19 65 16 11/20/22 00:17 98.2 F 77 16 99/69 L BP Pulse Ox O2 Del Method O2 Flow Rate 11/20/22 13:50 99/62 L 95 Room Air 11/20/22 13:21 105/67 94 Room Air 11/20/22 12:55 110/63 99 Nasal Cannula 2 11/20/22 12:45 119/70 99 Nasal Cannula 2 11/20/22 12:35 122/68 97 Oxymask 4 11/20/22 13:05 109/62 97 Nasal Cannula 2 11/20/22 12:26 122/66 96 Oxymask 6 11/20/22 10:24 100/69 96 Room Air 11/20/22 09:43 110/80 95 Room Air 11/20/22 08:44 109/70 97 Room Air 11/20/22 07:23 107/71 93 Room Air 11/20/22 06:20 104/68 94 Room Air 11/20/22 05:37 99/66 L 98 Room Air 11/20/22 04:57 106/69 94 Room Air 11/20/22 04:17 111/75 97 Room Air 11/20/22 02:19 98/62 L 95 Room Air 11/20/22 01:19 95/67 L 94 Room Air 11/20/22 00:17 94 Room Air Pain Intensity Abdomen: Pain Intensity: 3 Transfer of Care Handoff Completed per policy Notes Mental Status: alert / awake / arousable and participated in evaluation Patient Amnestic to Procedure: Yes Nausea / Vomiting: adequately controlled Pain: adequately controlled Airway Patency, RR, SpO2: stable & adequate BP & HR: stable & adequate Hydration State: stable & adequate Anesthetic Complications: no major complications apparent and Pt Satisfied with anesthetic care
[2022-11-20] MEDS: clonazePAM 1 MG TAB PO SCH ×3 (14:29→20:04)
[2022-11-20] MEDS: LEVOTHYROXINE SODIUM 50 MCG TABLET PO SCH (14:30)
[2022-11-20] MEDS: ONDANSETRON INJ 2 MG/ML 2 ML VIAL IV PRN (14:33)
[2022-11-20] MEDS: PANTOprazole 40 MG TAB PO SCH (14:37)
[2022-11-20] MEDS: FAMOTIDINE 20 MG TAB PO SCH ×2 (14:37→19:44)
[2022-11-20] MEDS: ROSUVASTATIN CALCIUM 20 MG TAB PO SCH (14:38)
[2022-11-20] MEDS: PRIMIDONE 50 MG TAB PO SCH ×2 (14:38→19:46)
[2022-11-20] MEDS: LACTATED RINGER'S 1,000 ML IV SCH (14:52)
[2022-11-20] MEDS: AMPICILLIN/SULBACTAM SOD 1,500 MG in 0.9 % SODIUM CHLORIDE 100 ML IV SCH ×2 (15:57→22:32)
--- NOTE | 2022-11-20 18:39 | Emergency Department Note ---
Impression & Plan Cholelithiasis, Abdominal pain, acute, right upper quadrant, Transaminitis Admit to surgery ED Provider Note NAME: CARA ARAGON AGE: 72 SEX: F ARRIVES VIA: Ambulance INFORMANT: Patient ED PROVIDER(S): Rizwana Cahvarria DO CHIEF COMPLAINT: Severe right upper quadrant pain PLAN: Disposition: Admit to surgery Condition: Guarded MEDICAL DECISION MAKING: This is a 72-year-old female patient who presents to the emergency department by EMS with severe right upper quadrant pain. The patient is scheduled to undergo acute cholecystectomy on December [address] Pelaez. She describes having episodes of gallbladder attacks. This one was severe and caused her to call EMS. EMS administered IV fentanyl and Zofran which relieved her pain. The patient has been taking Ensure high-protein/low-fat. She states that she is unsure what triggered this attack. Laboratory studies here in the emergency department revealed an acute transaminitis which is a new finding for this patient. There was no leukocytosis. Hemoglobin was 11.5. Electrolytes were unremarkable. There was no evidence of acute kidney injury. Patient was medicated here in the ER with IV Dilaudid and Zofran. She received a bolus of IV normal saline solution was placed on normal saline drip. Triage Nursing notes reviewed and agree with them. External medical records were reviewed including previous admissions and surgical notes. Vital Signs: reviewed and remarkable for no significant abnormalities Differential diagnosis: Acute cholecystitis, transaminitis, acute abdomen, SBP ER treatment provided: Cardiac monitoring IV normal saline bolus IV Zofran IV Dilaudid Diagnostics interpreted by me: Cardiac Monitoring: Normal sinus rhythm at 74 Laboratory studies: See below HPI: 72/F arrives for evaluation of right upper quadrant pain. Patient describes having severe right upper quadrant abdominal pain this evening after taking an Ensure high-protein low-fat meal substitute. She called EMS because the pain was so severe. They administered IV fentanyl and Zofran which gave her some relief of her discomfort. PAST MEDICAL HISTORY:See Below PAST SURGICAL HISTORY:See Below FAMILY HISTORY:See Below SOCIAL HISTORY:See Below HOME MEDICATIONS:See list ALLERGIES:See list VITALS:See Below PHYSICAL EXAMINATION: HEENT: Head - normocephalic and atraumatic Pupils are equal, round, and reactive to light. Extraocular eye muscles are intact, and sclera are anicteric. Nose - moist nasal mucosa without discharge. Mouth - moist buccal mucosa. Oropharynx is nonerythematous and there is no tonsillar exudate or edema noted. Neck: Supple; no cervical lymphadenopathy or JVD. Heart: Regular rate and rhythm. There is a normal S1 and S2 with no murmurs, clicks, or gallops appreciated. Lungs: Clear to auscultation bilaterally with no wheezes, rales, or rhonchi. Abdomen: Soft, moderate tenderness to palpation in the right upper quadrant of the abdomen. The abdomen is mildly distended, with good bowel sounds. There are no palpable pulsatile masses or hepatosplenomegaly. There is no guarding, rigidity, or rebound noted. Extremities: No evidence of cyanosis, clubbing, or edema. There are easily palpable peripheral pulses. Skin: warm and dry with good turgor and no rashes. ED COURSE: Times/Reassessments: 425 the patient was evaluated in room C8. A complete history and physical was performed. Laboratory studies were drawn as above. An order was placed for continuous cardiac monitoring. The patient was in a normal sinus rhythm at a rate of 74. Patient complained of increasing pain and was given a dose of IV Dilaudid and IV Zofran. She was bolused with IV normal saline solution for some mild hypotension. She was then placed on a normal saline drip at 125 an hour. I discussed the case with Dr. Morales who is on for general surgery and she will admit the patient to the hospital. Rizwana Chavarria DO Past Med/Surg History Medical History Actinic keratitis Actinic keratosis Adrenal insufficiency Anemia Anxiety Balance problem Bipolar 1 disorder Chest pain of unknown etiology Chronic back pain Chronic obstructive pulmonary disease Constipation COPD (chronic obstructive pulmonary disease) inhaler daily--chronic cough/wheeze daily per pt Cough Degenerative disc disease Depression Diastolic heart failure follows with Dr. Corona Dysphagia Dystonia Ectopic atrial tachycardia follows Dr. Corona Esophageal reflux Generalized osteoarthritis of multiple sites GERD (gastroesophageal reflux disease) GERD (gastroesophageal reflux disease) Hearing deficit History of subdural hematoma 02/2019 - fall Hypothyroidism Hypothyroidism Kidney stones hx-passed on own Limb pain Liver mass PCP FOLLOWING Lumbar compression fracture Lung nodule just monitoring Major depressive disorder (11/01/11) Movement disorder Mucocele of lip Neuropathic tremor Nocturnal hypoxia On home oxygen therapy 2L n/c at hs Orthostatic hypotension Orthostatic hypotension Osteoarthritis Osteoporosis Osteoporosis Pancreatic mass pcp monitoring-hx-"told she no longer has it" Poor memory PTSD (post-traumatic stress disorder) hx Pulmonary emphysema Recurrent falls last one 07/2021; bump on head-"leakage noted from previous hematoma" Schizophrenia pt denies-"police didn't believe her when she thought ex- was coming to her apartment daily" Seborrheic keratosis Shortness of breath Sleep apnea uses O2 @2Liters at bedtime Spasmodic torticollis Spinal stenosis Stroke 1983--numbness of left side of face--follows with Dr. Lopez in [facility]-has not seen since 2018 Thoracic aortic ectasia follows Dr. Corona Tobacco use Tremor Vitamin D deficiency Surgical History H/O esophagogastroduodenoscopy History of appendectomy History of bilateral cataract extraction per pt had it done twice on both eyes History of colonoscopy with polypectomy History of dilation and curettage mult History of laparotomy x2---uterine fibroids History of left heart catheterization (LHC) 2012 @ [facility]--no stents History of tonsillectomy and adenoidectomy History of tooth extraction all upper teeth/most of lower History of transesophageal echocardiography (SHAYE) Hx of tubal ligation S/P subdural hematoma evacuation (~04/2019) [facility] > November 2019 pt "unsure about this" Status post glaucoma surgery unsure which eye Family History Brother Family history of diabetes mellitus Family hx colonic polyps Son Family history of diabetes mellitus Aunt Family history of diabetes mellitus Uncle Family history of diabetes mellitus Mother Family hx of colon cancer Cancer Hypertension Sister Family hx of colon cancer Colorectal cancer Other No family history of adverse response to anesthesia Social History Smoking Status: Former smoker Age Started Using Tobacco: 37; Age Quit Using Tobacco: 62; packs per day: 1.5; Second Hand Exposure: Yes (as a child); Do You Dip or Chew Tobacco: No; Hx Alcohol Use: Yes Alcohol type: wine and hard liquor Alcohol Intake Freque ncy: Monthly or Less Hx Substance Use: No Preferred Language: [place] Island[place] Communication Ability: Effective 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 adhesive Allergy Intermediate RASH, Verified 11/20/22 02:14 BLISTER beclomethasone [From Qvar] Allergy Intermediate swelling Verified 11/20/22 02:14 of lip doxycycline Allergy Intermediate rash Verified 11/20/22 02:14 gabapentin Allergy Intermediate rash Verified 11/20/22 02:14 nickel Allergy Intermediate Rash Verified 11/20/22 02:14 albuterol AdvReac Unknown unknown Verified 11/20/22 02:14 per pt ephedrine AdvReac Unknown REACTS Verified 11/20/22 02:14 WITH ANOTHER MED epinephrine AdvReac Unknown reacts to Verified 11/20/22 02:14 a med levalbuterol AdvReac Unknown unknown Verified 11/20/22 02:14 per pt procaine [From Novocain] AdvReac Unknown reacts to Verified 11/20/22 02:14 nardil medication pt is on Home Meds Home Medications Medication Instructions Recorded Confirmed coenzyme Q10 100 mg capsule 200 mg PO HS 02/05/19 11/20/22 estradiol 0.01% (0.1 mg/gram) 0.01 % vaginal 2XWK 02/05/19 11/20/22 vaginal cream lamotrigine 200 mg tablet 200 mg PO HS 02/05/19 11/20/22 primidone 50 mg tablet 100 mg PO BID 02/05/19 11/20/22 Lactobacillus 1 cap PO HS 02/07/19 11/20/22 acidophilus-Bifidobac.animalis 2.5 billion cell capsule (Daily Probiotic) polyethylene glycol 3350 17 17 gm PO UD PRN Constipation 02/07/19 11/20/22 gram/dose oral powder (Miralax) primidone 50 mg tablet 150 mg PO HS 03/19/19 11/20/22 raloxifene 60 mg tablet 60 mg PO HS 03/19/19 11/20/22 clonazepam 1 mg tablet 1 mg PO TID 05/19/19 11/20/22 calcium carbonate 600 mg-vitamin 2 tab PO HS 10/10/19 11/20/22 D3 5 mcg (200 unit) tablet (Calcium 600 + D(3)) food supplemt, lactose-reduced 1 ea PO QAM 01/09/20 11/20/22 (Ensure oral liquid) triamcinolone acetonide 0.1 % 1 applic topical BID PRN Rash 01/17/20 11/20/22 topical cream omeprazole 20 mg tablet,delayed 20 mg PO QAM 02/27/20 11/20/22 release acetaminophen 500 mg tablet 1,000 mg PO Q6H PRN Pain 12/31/21 11/20/22 levothyroxine 50 mcg tablet 50 mcg PO QAM 12/31/21 11/20/22 dicyclomine 10 mg capsule 10 mg PO BID PRN Abdominal Pain 11/03/22 11/20/22 famotidine 20 mg tablet 20 mg PO BID 11/03/22 11/20/22 linaclotide 145 mcg capsule 145 mcg PO DAILY 11/03/22 11/20/22 (Linzess) rosuvastatin 20 mg tablet 20 mg PO QAM 11/03/22 11/20/22 Results & Data (ED) Vital Signs Vital Signs - 24 hr 11/20/22 00:17 11/20/22 01:19 11/20/22 02:19 Temperature 36.8 C Temperature Source Oral Pulse Rate 77 Pulse Rate [Left Finger] 65 72 Pulse Rhythm [Left Finger] Regular Regular Pulse Strength [Left Finger] Normal Normal Respiratory Rate 16 16 16 Respiratory Effort / Characteristics Non-Labored Spontaneous Non-Labored Spontaneous Non-Labored Spontaneous Respiratory Depth Normal Normal Normal Blood Pressure 99/69 L Blood Pressure [Left Arm] 95/67 L 98/62 L Blood Pressure Mean 79 Blood Pressure Mean [Left Arm] 76 74 Blood Pressure Position [Left Arm] Sitting Pulse Oximetry 94 94 95 Oxygen Delivery Method Room Air Room Air Room Air Sepsis Recent Fever Within 48 Hours No Sepsis New/Unexplained Change in Mental Status No Sepsis Action Taken by Nursing No Action Required 11/20/22 04:17 11/20/22 04:57 11/20/22 05:37 Temperature Temperature Source Pulse Rate Pulse Rate [Left Finger] 83 74 75 Pulse Rhythm [Left Finger] Regular Regular Regular Pulse Strength [Left Finger] Normal Normal Normal Respiratory Rate 20 16 16 Respiratory Effort / Characteristics Non-Labored Spontaneous Non-Labored Spontaneous Non-Labored Spontaneous Respiratory Depth Normal Normal Normal Blood Pressure Blood Pressure [Left Arm] 111/75 106/69 99/66 L Blood Pressure Mean Blood Pressure Mean [Left Arm] 87 81 77 Blood Pressure Position [Left Arm] Pulse Oximetry 97 94 98 Oxygen Delivery Method Room Air Room Air Room Air Sepsis Recent Fever Within 48 Hours Sepsis New/Unexplained Change in Mental Status Sepsis Action Taken by Nursing 11/20/22 06:20 11/20/22 07:23 11/20/22 08:44 Temperature Temperature Source Pulse Rate Pulse Rate [Left Finger] 66 72 62 Pulse Rhythm [Left Finger] Regular Pulse Strength [Left Finger] Normal Respiratory Rate 16 18 12 Respiratory Effort / Characteristics Non-Labored Spontaneous Non-Labored Spontaneous Non-Labored Spontaneous Respiratory Depth Normal Normal Normal Blood Pressure Blood Pressure [Left Arm] 104/68 107/71 109/70 Blood Pressure Mean Blood Pressure Mean [Left Arm] 80 83 83 Blood Pressure Position [Left Arm] Pulse Oximetry 94 93 97 Oxygen Delivery Method Room Air Room Air Room Air Sepsis Recent Fever Within 48 Hours Sepsis New/Unexplained Change in Mental Status Sepsis Action Taken by Nursing Laboratory Data 11/20/22 00:33 11/20/22 00:33 Lab Results 11/20/22 11/20/22 11/20/22 Range/Units 00:33 00:33 04:40 WBC 4.88 (4.8-10.8) K/ul RBC 3.65 L (4.20-5.40) M/uL Hgb 11.5 L (12.0-16.0) g/dl Hct 33.6 L (37.0-47.0) % MCV 92.1 (80.0-100.0) fL MCH 31.5 (25.0-34.0) pg MCHC 34.2 (32.0-36.0) g/dL RDW Std Deviation 39.9 (36.4-46.3) fL RDW Coeff of Paul 11.8 (11.5-14.5) % Plt Count 331 (130-400) K/uL MPV 9.8 (9.4-12.4) fL Immature Gran % (Auto) 0.4 % Neut % (Auto) 57.1 % Lymph % (Auto) 34.2 % Hickman % (Auto) 5.9 % Eos % (Auto) 1.8 % Baso % (Auto) 0.6 % Neut # (Auto) 2.78 (1.40-6.50) K/uL Lymph # (Auto) 1.67 (1.2-3.4) K/uL Hickman # (Auto) 0.29 (0.11-0.59) K/uL Eos # (Auto) 0.09 (0-0.50) K/uL Baso # (Auto) 0.03 (0-0.2) K/uL Immature Gran # (Auto) 0.02 (0.01-0.20) K/uL Sodium 133 L (136-145) mmol/L Potassium 3.8 (3.5-5.1) mmol/L Chloride 98 (98-107) mmol/L Carbon Dioxide 28 (21-32) mmol/L Anion Gap 7 (3-11) BUN 17 (6-23) mg/dl Creatinine 0.46 L (0.6-1.2) mg/dl Est Cr Clr Drug Dosing 83.1 ml/min Est GFR ( Amer) 114.4 ml/min Est GFR (Non-Af Amer) 98.7 ml/min BUN/Creatinine Ratio 37.0 H (10-20) Glucose 98 (70-99(Fasting)) mg/dl Calcium 8.7 (8.6-10.3) mg/dl Total Bilirubin 0.3 (0.2-1.0) mg/dl AST 297 H (13-39) U/L ALT 175 H (7-52) U/L Alkaline Phosphatase 69 (34-104) U/L Total Protein 6.8 (6.0-8.3) gm/dl Albumin 3.8 (3.4-5.0) gm/dl Globulin 3.0 (2.5-4.0) gm/dl Albumin/Globulin Ratio 1.3 (0.9-2) Lipase 66 (11-82) U/L Urine Color Yellow Urine Appearance Clear (Clear) Urine pH 7.5 (4.5-7.5) Ur Specific [place] 1.007 (1.000-1.030) Urine Protein Negative (Negative) Urine Glucose (UA) Negative (Negative) Urine Ketones Negative (Negative) Urine Blood Negative (Negative) Urine Nitrite Negative (Negative) Urine Bilirubin Negative (Negative) Urine Urobilinogen Negative (Negative) Ur Leukocyte Esterase Negative (Negative) SARS-CoV-2, RNA, NAAT (NEGATIVE) 11/20/22 Range/Units 04:58 WBC (4.8-10.8) K/ul RBC (4.20-5.40) M/uL Hgb (12.0-16.0) g/dl Hct (37.0-47.0) % MCV (80.0-100.0) fL MCH (25.0-34.0) pg MCHC (32.0-36.0) g/dL RDW Std Deviation (36.4-46.3) fL RDW Coeff of Paul (11.5-14.5) % Plt Count (130-400) K/uL MPV (9.4-12.4) fL Immature Gran % (Auto) % Neut % (Auto) % Lymph % (Auto) % Hickman % (Auto) % Eos % (Auto) % Baso % (Auto) % Neut # (Auto) (1.40-6.50) K/uL Lymph # (Auto) (1.2-3.4) K/uL [place] # (Auto) (0.11-0.59) K/uL Eos # (Auto) (0-0.50) K/uL Baso # (Auto) (0-0.2) K/uL Immature Gran # (Auto) (0.01-0.20) K/uL Sodium (136-145) mmol/L Potassium (3.5-5.1) mmol/L Chloride (98-107) mmol/L Carbon Dioxide (21-32) mmol/L Anion Gap (3-11) BUN (6-23) mg/dl Creatinine (0.6-1.2) mg/dl Est Cr Clr Drug Dosing ml/min Est GFR ( Amer) ml/min Est GFR (Non-Af Amer) ml/min BUN/Creatinine Ratio (10-20) Glucose (70-99(Fasting)) mg/dl Calcium (8.6-10.3) mg/dl Total Bilirubin (0.2-1.0) mg/dl AST (13-39) U/L ALT (7-52) U/L Alkaline Phosphatase (34-104) U/L Total Protein (6.0-8.3) gm/dl Albumin (3.4-5.0) gm/dl Globulin (2.5-4.0) gm/dl Albumin/Globulin Ratio (0.9-2) Lipase (11-82) U/L Urine Color Urine Appearance (Clear) Urine pH (4.5-7.5) Ur Specific [place] (1.000-1.030) Urine Protein (Negative) Urine Glucose (UA) (Negative) Urine Ketones (Negative) Urine Blood (Negative) Urine Nitrite (Negative) Urine Bilirubin (Negative) Urine Urobilinogen (Negative) Ur Leukocyte Esterase (Negative) SARS-CoV-2, RNA, NAAT NEGATIVE (NEGATIVE) Administered Medications Clonazepam (Clonazepam 1 Mg Tab) 1 mg PO TID [facility] Stop: 12/20/22 10:20 Last Admin: 11/20/22 16:47 Dose: 1 mg Documented By: [facility] Admin: 11/20/22 14:29 Dose: Not Given Documented By: [facility] Famotidine (Famotidine 20 Mg Tab) 20 mg PO BID [facility] Stop: 12/20/22 10:20 Last Admin: 11/20/22 14:37 Dose: 20 mg Documented By: [facility] Lactated Ringer's (Lr) 1,000 mls @ 100 mls/hr IV .Q10H [facility] Stop: 12/20/22 10:20 Last Infusion: 11/20/22 15:30 Dose: 200 mls/hr Documented By: [facility] Admin: 11/20/22 14:52 Dose: 100 mls/hr Documented By: [facility] Ampicillin Sodium/Sulbactam Sodium 1,500 mg/ Sodium Chloride 104 mls @ 200 mls/hr IV Q6H [facility]; Protocol Stop: 11/24/22 15:29 Last Admin: 11/20/22 15:57 Dose: 200 mls/hr Documented By: [facility] Levothyroxine Sodium (Levothyroxine Sodium 50 Mcg Tablet) 50 mcg PO DAILYBB [facility] Stop: 12/20/22 10:20 Last Admin: 11/20/22 14:30 Dose: Not Given Documented By: [facility] Ondansetron HCl (Ondansetron Inj 2 Mg/Ml 2 Ml Vial) 4 mg IV Q4H PRN PRN Reason: Nausea And Vomiting Stop: 12/20/22 10:20 Last Admin: 11/20/22 14:33 Dose: 4 mg Documented By: [facility] Oxycodone/Acetaminophen (Oxycodone/Acetaminophen 5mg/325mg Tab) 2 tab PO Q4H PRN PRN Reason: SEVERE Pain (7,8,9,10) Stop: 12/04/22 10:20 Last Admin: 11/20/22 14:45 Dose: 2 tab Documented By: [facility] Pantoprazole Sodium (Pantoprazole 40 Mg Tab) [facility] Stop: 12/20/22 10:20 Last Admin: 11/20/22 14:37 Dose: 40 mg Documented By: [facility] Primidone (Primidone 50 Mg Tab) 100 mg PO BID@0900,1200 [facility] Stop: 12/20/22 11:59 Last Admin: 11/20/22 14:38 Dose: 100 mg Documented By: [facility] Rosuvastatin Calcium (Rosuvastatin Calcium 20 Mg Tab) [facility] Stop: 12/20/22 10:20 Last Admin: 11/20/22 14:38 Dose: 20 mg Documented By: [facility] Discontinued Medications Bupivacaine HCl (Bupivacaine 0.5 % 5 Mg/1 Ml Mpf 30ml Vial) Confirm Administered Dose 30 ml .ROUTE .STK-MED ONE Stop: 11/20/22 10:26 Last Admin: 11/20/22 11:30 Dose: 30 ml Documented By: NED Cefazolin Sodium (Cefazolin 330 Mg/Ml 1 Gm Vial) 2,000 mg IV NOW ONE; Protocol Stop: 11/20/22 11:34 Last Admin: 11/20/22 16:33 Dose: Not Given Documented By: AV Fentanyl Citrate (Fentanyl Citrate Pf 100 Mcg/2 Ml Vial) 25 mcg IV Q5M PRN PRN Reason: PACU Use Only-Pain Stop: 11/20/22 18:35 Last Admin: 11/20/22 12:38 Dose: 25 mcg Documented By: Admin: 11/20/22 12:33 Dose: 25 mcg Documented By: SED Fentanyl Citrate (Fentanyl Citrate Pf 100 Mcg/2 Ml Vial) Confirm Administered Dose 100 mcg .ROUTE .STK-MED ONE Stop: 11/20/22 12:35 Last Admin: 11/20/22 14:49 Dose: Not Given Documented By: [facility] Hydromorphone HCl (Hydromorphone Inj 0.5 Mg/0.5 Ml Syr) 0.25 mg IV NOW STA Stop: 11/20/22 04:37 Last Admin: 11/20/22 04:45 Dose: 0.25 mg Documented By: MISSY Sodium Chloride (Nss) 500 mls @ 999 mls/hr IV .Q31M ONE Stop: 11/20/22 05:06 Last Infusion: 11/20/22 05:11 Dose: 0 mls/hr Documented By: Admin: 11/20/22 04:44 Dose: 999 mls/hr Documented By: MISSY Sodium Chloride (Nss) 500 mls @ 125 mls/hr IV .Q4H [facility] Stop: 12/20/22 04:44 Last Infusion: 11/20/22 16:34 Dose: 0 mls/hr Documented By: Admin: 11/20/22 08:43 Dose: 125 mls/hr Documented By: Infusion: 11/20/22 08:43 Dose: 125 mls/hr Documented By: Admin: 11/20/22 04:44 Dose: 125 mls/hr Documented By: MISSY Ampicillin Sodium/Sulbactam Sodium 3,000 mg/ Sodium Chloride 108 mls @ 200 mls/hr IV Q6H [facility]; Protocol Stop: 11/24/22 10:59 Last Admin: 11/20/22 15:49 Dose: Not Given Documented By: Daniel Ondansetron HCl (Ondansetron Inj 2 Mg/Ml 2 Ml Vial) 4 mg IV NOW STA Stop: 11/20/22 04:37 Last Admin: 11/20/22 04:45 Dose: 4 mg Documented By: MISSY Discharge Plan Visit Data Chief Complaint: Abdominal Pain Stated Complaint: ABDOMINAL PAIN ED Provider: Rizwana Chavarria Discharge Problem: Cholelithiasis, Abdominal pain, acute, right upper quadrant, Transaminitis Patient Disposition: Admitted As Inpatient Discharge Instructions Interventions: ED Discharge Assessment Last Done: 11/20/22 09:52 Cholelithiasis Qualifiers: Cholelithiasis location: gallbladder Cholecystitis presence: without cholecystitis
[2022-11-20] MEDS: lamoTRIgine 100 MG TAB PO SCH (19:45)
[2022-11-20] MEDS ORDERED: NON-FORMULARY MEDICATION (Coenzyme Q10 100 mg capsule) PO SCH (21:00)
[2022-11-21] MEDS: LACTATED RINGER'S 1,000 ML IV SCH ×2 (01:26→08:31)
[2022-11-21] MEDS: AMPICILLIN/SULBACTAM SOD 1,500 MG in 0.9 % SODIUM CHLORIDE 100 ML IV SCH ×4 (04:04→21:23)
[2022-11-21] MEDS: LEVOTHYROXINE SODIUM 50 MCG TABLET PO SCH (05:35)
[2022-11-21] MEDS: ONDANSETRON INJ 2 MG/ML 2 ML VIAL IV PRN ×2 (08:32→13:29)
[2022-11-21] MEDS: PRIMIDONE 50 MG TAB PO SCH ×5 (08:33→21:22)
[2022-11-21] MEDS: LINACLOTIDE 145 MCG CAPSULE PO SCH (08:33)
[2022-11-21] MEDS: ROSUVASTATIN CALCIUM 20 MG TAB PO SCH (08:33)
[2022-11-21] MEDS: PANTOprazole 40 MG TAB PO SCH (08:33)
[2022-11-21] MEDS: FAMOTIDINE 20 MG TAB PO SCH ×2 (08:35→21:23)
[2022-11-21] MEDS: clonazePAM 1 MG TAB PO SCH ×3 (08:36→21:22)
--- NOTE | 2022-11-21 10:31 | Surgery Progress Note ---
Date of Service November 21, 2022 Assessment & Plan (1) Cholelithiasis: Plan: POD#1 from lap cholecystectomy for acute cholecystitis. Still with nausea and unable to eat much currently. Will slowly advance diet. Likely will stay in hospital tonight so will change to admission status (as here 2 nights). Continue IV antibiotics. Admission and Anticipated Discharge Date Admission Date: November 20, 2022 Subjective Nauseated this morning after walking around. Has not eaten much. Physical Exam 2 Constitutional: WD/WN, vitals as above Eyes: PERRL, conjunctivae normal, anicteric sclerae Neck: trachea midline, no thyromegaly Respiratory: normal respiratory effort, lungs clear to auscultation Cardiovascular: RRR, no murmur, no edema Gastrointestinal (Abdomen): Inspection/Auscultation: abdomen normal to inspection, normal bowel sounds, + abdominal surgical scar (lower midline) and + abdominal surgical incision (dry); abdomen not distended Percussion/Palpation: abdomen soft; abdomen nontender and no guarding Musculoskeletal: no cyanosis or clubbing, extremities motor strength 5/5 Neurologic: awake; no focal motor deficits Results & Data Vital Signs (Past 12 Hours) Vital Signs Temp Pulse Resp BP Pulse Ox O2 Del Method O2 Flow Rate 11/21/22 07:18 36.6 C 60 18 106/65 95 Room Air 11/21/22 03:17 36.4 C L 66 18 116/70 98 Nasal Cannula 2 11/20/22 22:56 36.4 C L 59 L 18 101/65 97 Nasal Cannula 2 (1) Cholelithiasis Cholecystitis presence: without cholecystitis Cholelithiasis location: gallbladder
[2022-11-21] MEDS ORDERED: ACETAMINOPHEN 325 MG TAB PO PRN (16:44)
[2022-11-21] MEDS: ACETAMINOPHEN 325 MG TAB PO PRN (17:07)
[2022-11-21] MEDS: lamoTRIgine 100 MG TAB PO SCH (21:22)
[2022-11-22] MEDS: LACTATED RINGER'S 1,000 ML IV SCH ×2 (00:19→11:59)
[2022-11-22] MEDS: AMPICILLIN/SULBACTAM SOD 1,500 MG in 0.9 % SODIUM CHLORIDE 100 ML IV SCH ×4 (03:23→20:48)
[2022-11-22] MEDS: LEVOTHYROXINE SODIUM 50 MCG TABLET PO SCH (05:52)
[2022-11-22] MEDS: LINACLOTIDE 145 MCG CAPSULE PO SCH (08:48)
[2022-11-22] MEDS: PANTOprazole 40 MG TAB PO SCH (08:48)
[2022-11-22] MEDS: clonazePAM 1 MG TAB PO SCH ×3 (08:48→20:47)
[2022-11-22] MEDS: PRIMIDONE 50 MG TAB PO SCH ×3 (08:48→20:47)
[2022-11-22] MEDS: FAMOTIDINE 20 MG TAB PO SCH ×2 (08:48→20:47)
[2022-11-22] MEDS: ROSUVASTATIN CALCIUM 20 MG TAB PO SCH (08:48)
[2022-11-22] MEDS: ONDANSETRON INJ 2 MG/ML 2 ML VIAL IV PRN (09:10)
[2022-11-22] MEDS: ACETAMINOPHEN 325 MG TAB PO PRN (10:17)
[2022-11-22] MEDS ORDERED: PALIPERIDONE PALMITATE IM ONE (12:00)
--- NOTE | 2022-11-22 14:28 | Surgery Progress Note ---
Date of Service November 22, 2022 Assessment & Plan (1) Cholelithiasis: Plan: POD#2 from lap cholecystectomy for acute cholecystitis. Still with nausea and unable to eat much currently. afebrile, vss + nausea, controlled better today not ambulating much feels weak Plan: will consult case management as well as PT/OT for discharge planning as she feels unstable with ambulation continue antiemetics encouraged ambulation continue full liquids advance as tolerated hopefully discharge tomorrow Discussed with DR. boss who agrees with above. Admission and Anticipated Discharge Date Admission Date: November 21, 2022 Subjective still feeing nauseous but seems to be improving, still requiring antiemetics , has been having some baseline nausea and difficulty swallowing at home with weight loss. Follows with [facility] passing gas, no bowel movement urinating without difficulty no abdominal or incisional pain has not ambulated today, using walker, feels weak and off balance. Lives at home alone, unsure if she is ready for discharge to home. Physical Exam Constitutional: WD/WN, vitals as above + frail appearing, cooperative and comfortable; no acute distress and not ill appearing Gastrointestinal (Abdomen): Inspection/Auscultation: abdomen normal to inspection and + abdominal surgical incision (clean/dry/intact); abdomen not distended Percussion/Palpation: abdomen soft; abdomen nontender, no guarding and abdomen not rigid Skin: no rashes, warm and dry Psychiatric: Orientation: alert and oriented x 3 Results & Data Vital Signs (Past 12 Hours) Vital Signs Temp Pulse Resp BP Pulse Ox O2 Del Method O2 Flow Rate 11/22/22 07:22 36.4 C L 62 16 117/75 99 Nasal Cannula 2 (1) Cholelithiasis Cholecystitis presence: without cholecystitis Cholelithiasis location: gallbladder
[2022-11-22] MEDS: lamoTRIgine 100 MG TAB PO SCH (20:47)
[2022-11-23] MEDS: AMPICILLIN/SULBACTAM SOD 1,500 MG in 0.9 % SODIUM CHLORIDE 100 ML IV SCH ×2 (04:10→09:00)
[2022-11-23] MEDS: LEVOTHYROXINE SODIUM 50 MCG TABLET PO SCH (05:37)
[2022-11-23] MEDS: ROSUVASTATIN CALCIUM 20 MG TAB PO SCH (08:58)
[2022-11-23] MEDS: PANTOprazole 40 MG TAB PO SCH (08:58)
[2022-11-23] MEDS: clonazePAM 1 MG TAB PO SCH ×2 (08:58→13:34)
[2022-11-23] MEDS: LINACLOTIDE 145 MCG CAPSULE PO SCH (08:58)
[2022-11-23] MEDS: FAMOTIDINE 20 MG TAB PO SCH (08:58)
[2022-11-23] MEDS: PRIMIDONE 50 MG TAB PO SCH ×2 (08:59→12:07)
[2022-11-23] MEDS: LACTATED RINGER'S 1,000 ML IV SCH ×2 (10:36→10:37)
--- NOTE | 2022-11-23 11:09 | Surgery Progress Note ---
Date of Service November 23, 2022 Assessment & Plan (1) Biliary sludge: (2) Cholelithiasis: (3) Abdominal pain, RUQ: Plan POD #3, s/p lap cholecystectomy Doing well We will plan discharge to home today Return to clinic in [address] Morales Instructions given Admission and Anticipated Discharge Date Admission Date: November 21, 2022 Subjective Doing markedly better than yesterday. No nausea or vomiting. Minimal pain. Some abdominal cramping. No fevers or chills. Tolerating diet. Physical Exam Physical Exam: AFVSS NAD, A&O x3 Abdomen: Soft, nontender Incisions healing well without erythema or discharge Dermabond in place Results & Data Vital Signs (Past 12 Hours) Vital Signs Temp Pulse Resp BP Pulse Ox O2 Del Method O2 Flow Rate 11/23/22 07:10 36.7 C 59 L 18 124/81 98 Nasal Cannula 2 (2) Cholelithiasis Cholelithiasis location: gallbladder
--- NOTE | 2022-11-25 13:21 | Discharge Summary ---
Date of Service November 25, 2022 Admission HPI Per Admitting Provider 72 yr old woman scheduled for laparoscopic cholecystectomy in late November with Dr. Pelaez admitted with worsening right upper quadrant abdominal pain. She was seen in the ER for the same in mid October at which time a HIDA scan was negative. Presents today with pain that started yesterday, focused in the right upper quadrant, very intense. Notes she had an attack on Tuesday which kept her awake all night. This attack started yesterday, pain radiated to back, relieved by pain medications, associated with nausea. No precipitating factors. Taking ensure due to 50 lb weight loss over past year - has been undergoing evaluation for this with her primary. PSHx notable for exploratory lap, fibroid removal, appendectomy for carcinoid tumor in the . Last surgery was in the . Principal Diagnosis acute calculous cholecystitis Discharge Data Allergies Allergy/AdvReac Type Severity Reaction Status Date / Time topiramate Allergy Severe BREATHING Verified 11/20/22 02:14 PROBLEM & EYE PROBLEMS. adhesive Allergy Intermediate RASH, Verified 11/20/22 02:14 BLISTER beclomethasone [From Qvar] Allergy Intermediate swelling Verified 11/20/22 02:14 of lip doxycycline Allergy Intermediate rash Verified 11/20/22 02:14 gabapentin Allergy Intermediate rash Verified 11/20/22 02:14 nickel Allergy Intermediate Rash Verified 11/20/22 02:14 albuterol AdvReac Unknown unknown Verified 11/20/22 02:14 per pt ephedrine AdvReac Unknown REACTS Verified 11/20/22 02:14 WITH ANOTHER MED epinephrine AdvReac Unknown reacts to Verified 11/20/22 02:14 a med levalbuterol AdvReac Unknown unknown Verified 11/20/22 02:14 per pt procaine [From Novocain] AdvReac Unknown reacts to Verified 11/20/22 02:14 nardil medication pt is on Consultations 11/20/22 04:49 ED Decision to Admit Stat Procedures Performed Operation Date: 11/20/22 10:10 Actual Procedures p Laparoscopic Cholecystectomy(Not Applicable) - Yue Morales MD Hospital Course (1) Biliary sludge: (2) Cholelithiasis: (3) Abdominal pain, RUQ: Plan Patient taken to operating room for laparoscopic cholecystectomy by Dr. Morales on 11/20/2022. Patient found to have acute cholecystitis. Patient tolerated procedure without difficulty and transferred to med/surg for postop care. She had some nausea postoperatively in which she was not eating much. Diet advanced slowly. POD # 2 patient was having nausea but slightly better, diet advanced as tolerated. PT/OT were consulted as patient lives at home along, uses cane and walker and was feeling slightly off balance. Case management also consulted to help with discharge planning. 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 She was discharged home on POD # 3 to her son's house in stable condition. Total Time Total Time Spent Total Time Spent (In Minutes): 30 Total Time Includes: Examination of the Patient, Discharge Planning and Medication Reconciliation Discharge Plan Discharge Items Patient Disposition: Home - Self-Care Reason For Visit: ACUTE CHOLECYSTITIS Discharge Diagnosis: acute cholecystitis Activity: Per Instructions section Non-emergency contact: Primary Care Provider and Surgeon Call non-emergency contact if: you have any medication questions, your pain is not controlled, your pain is worsening, your pain is concerning for you, you have a fever, your temperature is above 101, your wound has increased redness, your wound has increased drainage and your wound pain has increased Follow-up/Referrals: López Edward MD [Primary Care Provider] - Diet: Regular Addtl Attending Provider Instructions: Post-Surgical ~Discharge Instructions Activity Recommendations: - lifting limitation: (20 pounds for 2-3weeks), - exercise/sex/sports limit: (nonstrenuous for 2 weeks), - driving or machine use limit: (none for 1 week or until pain free and no longer taking narcotic pain medication), - Shower/bathe limit: (may shower beginning tomorrow) Diet: - Resume previous diet SPECIAL CARE INSTRUCTIONS: - May shower. Let water run over area and pat dry. - Leave surgical glue on. This will fall off on its own. - Call the surgeon's office with any questions or concerns - - (ex. temperature higher than 101 degrees F, excessive bleeding or pain). MEDICATIONS: - Resume previous medications unless instructed otherwise by your surgeon. - May alternate extra strength Tylenol and Ibuprofen as needed for mild to moderate pain -650 mg Tylenol every 6 hours as needed - Ibuprofen 600 mg every 6 hours as needed (take with food) FOLLOW UP VISIT: - If not already scheduled, please call the office to schedule a two week follow-up appointment. Office number Pending Studies at Discharge: Yes (gallbladder pathology, will be reviewed at postop visit) Stand-Alone Forms: My [facility], Smoking Cessation Medications and DC Order Prescriptions: Continued coenzyme Q10 100 mg capsule 200 mg PO HS estradiol 0.01 % (0.1 mg/gram) cream 0.01 % PV 2XWK lamotrigine 200 mg tablet 200 mg PO HS primidone 50 mg tablet 100 mg PO BID Rx Instructions: Take 100mg by mouth in the morning and at lunchtime Daily Probiotic 2.5 billion cell capsule 1 cap PO HS polyethylene glycol 3350 [Miralax] 17 gram/dose powder 17 gm PO UD PRN (Reason: Constipation) raloxifene 60 mg Tablet 60 mg PO HS primidone 50 mg Tablet 150 mg PO HS calcium carbonate-vitamin D3 [Calcium 600 + D(3)] 600 mg(1,500mg) -200 unit Tablet 2 tab PO HS triamcinolone acetonide 0.1 % cream 1 applic TOPICAL BID PRN (Reason: Rash) omeprazole 20 mg Tablet,Delayed Release (Dr/Ec) 20 mg PO QAM clonazepam 1 mg tablet 1 mg PO TID Ensure Liquid 1 ea PO QAM dicyclomine 10 mg capsule 10 mg PO BID PRN (Reason: Abdominal Pain) rosuvastatin 20 mg tablet 20 mg PO QAM Linzess 145 mcg capsule 145 mcg PO DAILY famotidine 20 mg tablet 20 mg PO BID acetaminophen 500 mg Tablet 1,000 mg PO Q6H PRN (Reason: Pain) levothyroxine 50 mcg Tablet 50 mcg PO QAM Discharge Orders: Discharge Order (Routine); Ordered 11/23/22 Ordered By: Giovanny Castanon/Other Patient Handouts: DVT Post Op Prevention Admission Data Admit Date/Time: 11/21/22 10:28 Attending Provider: Yue Morales Admit Provider: Yue Morales Primary Care Provider: López Edward Other Interventions: Discharge Summary Assessment (RN) Last Done: 11/23/22 11:35
== END 2022-11-23 14:34 | disposition home or self-care (01) | DRG 419 ==
LOC: ED 00:27 → 3N 00:27

== ENCOUNTER 2024-02-26 03:28 | Observation (INO) ==
--- OUTSIDE RECORDS SUMMARY | 2024-02-26 03:34 | External Medical Summary | Summary of Care ---
Author Name Unknown Organization [facility] Address [address] [place] [address] Phone [phone] Care Team Providers Care Finish Repair Worker Name Role Phone López Edward MD Primary Care Provider + Reason for Visit * Reason Onset Date Comments Test Results Imaging Study 02/22/2024 DXA Encounter Details Date Type Department Care Team (Late st Contact Info) Description 02/22/2024 Telephone General Internal Medicine [facility] [address] [place] [address] López Edward MD [address] [place] [address] Test Results Imaging Study (DXA) Allergies Active Allergy Reactions Criticality Noted Date Comments Adhesive Tape High 05/19/2019 Band aids Other reaction(s): RASH, BLISTER Other Reaction(s): Rash, blisters Albuterol 01/18/2020 Other reaction(s): unknown per pt Beclomethasone High 01/13/2019 Took one dose, Had swelling on lip Other reaction(s): swelling of lip Beclomethasone 05/19/2019 Lips edema Cheese High 05/19/2019 Stroke- aged cheese Other reaction(s): anything with tyramine/aged caused a stroke Doxycycline Low 08/03/2018 Rash Other reaction(s): rash Ephedrine 05/19/2019 Reacts with other meds Other reaction(s): REACTS WITH ANOTHER MED WOULD LIKE THIS REMOVED Epinephrine Other (Please comment) 04/01/2010 Taking NARDIL and use of epinephrine WOULD LIKE THIS REMOVED Epinephrine 03/25/2021 Other reaction(s): reacts to a med WOULD LIKE THIS REMOVED Food (See Comments) Hypertension 10/29/2013 Any food with Tyramine Gabapentin Low 07/14/2018 Rash, affected mood Other reaction(s): rash Latex 04/08/2006 Rash, blisters Levalbuterol 01/18/2020 Other reaction(s): unknown per pt Nickel Low 01/17/2020 Other reaction(s): Rash Procaine 03/25/2021 Other reaction(s): reacts to nardil medication pt is on Topiramate High 12/11/2014 Breathing problems and eye problems Other reaction(s): BREATHING PROBLEM & EYE PROBLEMS. Tyramine High 05/19/2019 Stroke, hypertension Other reaction(s): WAS BELIEVED IT CAUSED A STROKE documented as of this encounter (statuses as of 02/22/2024) Medications Medication Sig Dispensed Refills Start Date End Date Status VITAMIN D 1000 UNIT PO CAPSIndications:Vit fritz D deficiency 1 capsule daily 30 11 08/12/2009 Active LAMICTAL 200 MG PO TABS Take 1 Tablet by mouth at bedtime. 08/02/2012 Active Nutritional Supplements (ENSURE) Take by mouth 2 times a day. One can Active acetaminophen (TYLENOL) 500 MG Tablet Take 1 Tablet by mouth every 4 hours as needed for Pain (or Fever. Do not exceed 3000 mg daily of all Acetaminophen products combined.). Active Coenzyme Q10 (COQ10) 100 MG CAPS Take 2 Caps by mouth at bedtime. 10/15/2016 Active Probiotic Product (PROBIOTIC & ACIDOPHILUS EX ST) Capsule Take 1 Cap by mouth daily. 10/15/2016 Active Calcium Carbonate 600 MG Tablet Take 2 Tablets by mouth in the morning. 05/14/2017 Active polyethylene glycol 3350 (MIRALAX) packet Take 1 Packet by mouth daily as needed for Constipation. Active Nveypvl-Fikxhvv-Cqk hyl Jaskaran 1.2-5.7-6.3 % External Patch Apply 1 Patch topically to affected area as needed for Pain. For neck and shoulders Active Spacer/Aero-Holding Chambers DEVIIndications:Pul monary emphysema, unspecified emphysema type (HCC),Oral thrush Use with inhaler. 2 Device 01/04/2019 Active triamcinolone acetonide (ARISTOCORT) 0.1 % creamIndications:Me dication reaction, initial encounter Apply topically to affected area 2 times a day. To affected area. 60 g 5 12/24/2019 Active Adapalene 0.1 % External Gel (Differin) APPLY TOPICALLY TO AFFECTED AREA AT BEDTIME. APPLY TO FACE AREA NEEDED 45 g 1 02/20/2021 Active Zoster Vac Recomb Adjuvanted 50 MCG/0.5ML Intramuscular Suspension Reconstituted (Shingrix)Indicatio ns:Need for shingles vaccine Inject 0.5 mL into a large muscle now and repeat dose in 60 to 180 days 1 Each 1 11/11/2021 Active Additional Information Patient not taking.Reported on 06/27/2023 Paliperidone Palmitate ER 78 MG/0.5ML Intramuscular Suspension Prefilled SyringeIndications: Schizoaffective disorder, bipolar type (HCC) Inject 78 mg into a large muscle every 4 weeks. 03/16/2022 Active Rosuvastatin Calcium 20 MG Oral Tablet (Crestor)Indication s:Dyslipidemia, goal LDL below 70 TAKE 1 TABLET BY MOUTH EVERY DAY IN THE MORNING 90 Tablet 3 03/25/2023 Active oxygen IN GAS Administer 2 L/min(Oxygen) into nostril at bedtime. 04/19/2023 Active Levothyroxine Sodium 50 MCG Oral Tablet (Levoxyl)Indication s:Hypothyroidism due to acquired atrophy of thyroid TAKE 1 TABLET BY MOUTH IN THE MORNING. (AT LEAST 30 MIN PRIOR TO BREAKFAST OR OTHER MEDS). 90 Tablet 3 05/25/2023 Active Primidone 50 MG Oral Tablet (Mysoline)Indicatio ns:Abnormal involuntary movement TAKE 2 TABLETS BY MOUTH IN THE AM, 2 TABLETS IN THE AFTERNOON AND 3 TABLETS AT BEDTIME 630 Tablet 3 07/25/2023 Active Raloxifene HCl 60 MG Oral Tablet (Evista)Indications :Osteoporosis TAKE 1 TABLET BY MOUTH EVERYDAY AT BEDTIME 90 Tablet 3 08/26/2023 Active Metamucil Fiber Oral Tablet Chewable Take by mouth. Active Estradiol 0.1 MG/GM Vaginal Cream (Estrace) USE 1/2 APPLICATORFUL INTO VAGINA 2X A WEEK 42.5 g 1 11/08/2023 Active Famotidine 20 MG Oral Tablet (Pepcid)Indications :GERD (gastroesophageal reflux disease) TAKE 1 TABLET BY MOUTH TWICE A DAY 180 Tablet 3 12/05/2023 Active Omeprazole 20 MG Oral Capsule Delayed Release (PriLOSEC)Indicatio ns:Gastroesophageal reflux disease without esophagitis TAKE 1 CAP BY MOUTH DAILY. 1 HOUR BEFORE THE FIRST MEAL OF THE DAY 90 Capsule 3 12/22/2023 Active Dicyclomine HCl 10 MG Oral Capsule (Bentyl) TAKE 1 CAPSULE BY MOUTH TWICE A DAY IF NEEDED FOR LOWER ABDOMINAL PAIN 180 Capsule 12/21/2023 Active clonazePAM 1 MG Oral Tablet (KlonoPIN)Indicatio ns:Essential tremor TAKE 1 TABLET BY MOUTH THREE TIMES A DAY 90 Tablet 2 01/25/2024 Active Carbidopa-Levodopa 25-100 MG Oral Tablet (Sinemet)Indication s:Essential tremor,Spasmodic torticollis,Jose onian features Take 2 tabs 3 times day 540 Tablet 02/07/2024 Active Linzess 145 MCG Oral Capsule (linaCLOtide) TAKE 1 CAPSULE BY MOUTH EVERY DAY BEFORE BREAKFAST 90 Capsule 02/14/2024 Active documented as of this encounter (statuses as of 02/22/2024) Active Problems Problem Noted Date Diagnosed Date Coronary artery calcification 09/26/2023 Dyslipidemia, goal LDL below 70 09/14/2023 Moderate protein-calorie malnutrition 10/13/2022 Affective psychosis, bipolar 06/30/2022 Delusional disorder 06/30/2022 Schizoaffective disorder, bipolar type 2 Mild mitral regurgitation 08/05/2020 Diastolic dysfunction 08/05/2020 History of subdural hematoma 06/24/2020 Overview: 04/2019 - all coils are MRI compatible. COPD, group B, by GOLD 2017 classification 06/04 Overview: Per COPD GOLD Classification Spasmodic torticollis 03/29/2019 Irritable bowel syndrome with constipation 05/01 Action tremor 01/17/2018 Ectopic atrial tachycardia 06/03/2017 High risk for fracture due to osteoporosis by DE XA scan 02/23/2017 Thoracic aortic ectasia 10/15/2016 Esophageal dysmotility 07/09/2016 CTS (carpal tunnel syndrome) 07/02/2014 Orthostatic hypotension 04/19/2012 GERD (gastroesophageal reflux disease) 2 Hypothyroidism due to acquired atrophy of thyroi d 04/27/2005 documented as of this encounter (statuses as of 02/22/2024) Resolved Problems Problem Noted Date Diagnosed Date Resolved Date Atypical depression 06/30/2022 06/30/19 23 Overview: Follows with psychiatry Acquired hypothyroidism 08/17/202010/22 Overview: More specified code on pl Cerebral atherosclerosis 01/23/2020 Subdural hematoma 05/19/2019 06/24/2020 Cystic mass of pancreas 02/25/201911/21 Overview: Tiny mass body of pancreas detected incidentally on CT for hematuria . Radiology report suggests MRI in 2 years time end of 2019. May be side branch IPMN Major depressive disorder, s renee episode, in full remission 01/04/2019 03/29/2019 Rectal bleeding 07/03/2018 07/14/2018 Seizure disorder, simple par tial, without intractable epilepsy 01/17/2018 01/17/2018 Encounter for examination fo r normal comparison and control in clinical research program 12/26/2017 12/24/2019 Overview: [facility] DE[facility] Study: Project # [id number], Lining Stitcher: Ihsan Rucker, PhD. SUMMARY: Goal: Establish test characteristics (sensitivity, specificity, PPV, NPV) of a circulating tumor DNA (ctDNA)-based test for cancer. Hypothesis: Circulating tumor DNA (ctDNA) and elevated protein biomarkers (together, the marker panel) can be detected in asymptomatic individuals with early cancer. Specific Aim 1: Determine the prevalence of a positive marker panel test in a prospective clinical cohort of 10,000 asymptomatic women ages 65 to 75 years. Specific Aim 2: Determine the sensitivity, specificity, positive predictive value (PPV) and negative predictive value (NPV) of a marker panel test to identify histologically proven cancers that develop within 5-years of the marker panel evaluation. CONTACTS: During normal business hours, contact study staff at ; after hours Lining Stitcher via the [facility] hospital neck band operator . Please contact study team before resolving/deleting from patients problem list. Study phone number: [phone]. Diagnosis changed due to Research Module. Go to Snapshot for study details. Encounter for examination fo r normal comparison and control in clinical research program 12/26/2017 01/21/2022 Overview: DO NOT DELETE - [facility] DETECT Study: Project # [id number], Lining Stitcher: Napoleon Dean, MS, MPH. SUMMARY: Goal: Establish test characteristics (sensitivity, specificity, PPV, NPV) of a circulating tumor DNA (ctDNA)-based test for cancer. - Hypothesis: Circulating tumor DNA (ctDNA) and elevated protein biomarkers (together, the marker panel) can be detected in asymptomatic individuals with early cancer. - Specific Aim 1: Determine the prevalence of a positive marker panel test in a prospective clinical cohort of 10,000 asymptomatic women ages 65 to 75 years. - Specific Aim 2: Determine the sensitivity, specificity, positive predictive value (PPV) and negative predictive value (NPV) of a marker panel test to identify histologically proven cancers that develop within 5-years of the marker panel evaluation. - CONTACTS: During normal business hours, contact study staff at ; after hours Lining Stitcher via the [facility] hospital neck band operator . - Please contact study team before resolving/deleting from patients problem list. Study phone number: [phone]. Diagnosis changed due to Research Module. Go to Snapshot for study details. Adrenal insufficiency 10/15/20162019 Family history of melanoma 09/11/2015 0 10/26/2016 Overview: mother Actinic keratosis 06/05/2013 07/14/2018 Other seborrheic keratosis 06/05/2013 0 07/14/2018 Mucocele of lower lip 06/05/20132016 Hypothyroidism 01/23/2013 10/16/2015 PTSD (post-traumatic stress disorder) 11/23/2011 05/14/2013 Uterine prolapse 11/09/2010 09/13/2017 Vitamin D deficiency 08/12/2009 018 COPD with emphysema 11/20/2008 06/30/19 ADVANCE DIRECTIVE INFORMATION 05/14/2008 06/03/2017 Overview: No, Advance Directive brochure offered , patient declined. ABN INVOLUN MOVEMENT NEC 04/08/200610/2016 Osteoporosis 04/27/2005 03/03/2017 Pain in limb 2005 10/26/2016 GENERAL OSTEOARTHROSIS 11/22/200209/13 Essential tremor 07/10/2001 01/17/2018 Major depressive disorder Overview: ICD-10 update of inactive term Bipolar disorder 05/14/2013 Tobacco use disorder 017 Bipolar disorder 07/06/2013 documented as of this encounter (statuses as of 02/22/2024) Immunizations Name Administration Dates Next Due 01/24/2014,11/08/2013 04/29/2014 COVID-19 mRNA, LNP-s, No Pre serve, 2-Dose Series (Pfizer) 07/30/2020,07/09/2020 COVID-19, mRNA, LNP-s, PF, B ooster, 100mcg/0.5mg (Moderna) 05/22/2021 PPD 06/08/2019,05/30/2019 Pneumococcal Conjugate Vacc, 13 Valent (Prevnar) 06/04/2014 Pneumococcal Polysaccharide PPV23 (Pneumovax) 09/01/2015,04/06/2007 Season Influenza, Quad, PF, Adjuvanted, 65+ Yrs, IM (FLUAD) 03/14/2023,01/23/2020 Seasonal Influenza Vac., MDV , IM, 0.5 mL (Fluzone) 01/28/2015,04/09/2014,05/14/2013,05/2012,04/19/2012,04/01/2010,04/28/20 09,03/12/2008,04/06/2007 Seasonal Influenza, PF, 6 M & above, IM , (FluLaval or Fluzone) 03/09/2018 Seasonal Influenza, Quadriva lent Hd (Fluzone Hd) 03/16/2022,02/06/2021 Seasonal Influenza, Quadriva lent Hd, 65+ Yrs 03/29/2019 Seasonal Influenza, Quadriva lent, No Preserve, IM 02/08/2017,02/18/2016 Seasonal Influenza, Trivalen t, Adjuvanted, 65+ YRS, PF, (Fluad) 03/29/2019 TD, Preservative Free 11/24/2016 TDAP, Age 7 and older, IM (Adacel) 05/15/2007 documented as of this encounter Social History Tobacco Use Types Packs/Day Years Used Date Smoking Tobacco: Former Cigarettes 1 30 0 05/23/1981 - 05/23/2011 Smokeless Tobacco: Never Alcohol Use Standard Drinks/Week Comments Not Currently 0 (1 standard drink = 0.6 oz pur e alcohol) rare PHQ-2 Answer Date Recorded PHQ Adult Total Score 1 04/19/2023 Hunger Vital Sign Answer Date Recorded Within the past 12 months, y ou worried that your food would run out before you got the money to buy more. Never true 06/27/19 24 Within the past 12 months, t he food you bought just didn't last and you didn't have money to get more. Never true 06/27/2023 Childcare Answer Date Recorded Do you feel overwhelmed with taking care of a child, family member or friend? No 06/27/2023 Does your family need help f inding childcare? (Household - for ages 0-17 years) Not on file 06/27/2023 Clothing Answer Date Recorded Have you been unable to get clothing when it was really needed? No 06/27/2023 Is your family able to get c lothes or diapers when needed? (Household - for ages 0-17 years) Not on file 06/27/2023 Personal Safety Answer Date Recorded Do you feel unsafe or have concerns for your saf ety? No 06/27/2023 Do you have concerns for you r family's safety? (Household - for ages 0-17 years) Not on file 06/27/2023 Utilities Answer Date Recorded Do you have trouble paying y our heating, water, or electric bill? No 06/27/2023 Is your family able to pay t he heat, water, or electric bill? (Household - for ages 0-17 years) Not on file 06/27/2023 Does your family have access to good internet? (Household - for ages 0-17 years) Not on file 06/27/2023 Employment Status Answer Date Recorded Are you unemployed or without regular income? No 06/27/2023 Does the household have a re gular source of income? (Household - for ages 0-17 years) Not on file 06/27/2023 Social Connections Answer Date Recorded How often do you feel lonely or isolated from those around you? Sometimes 06/27/2023 Financial Resource Strain Answer Date R ecorded Do you have any trouble payi ng for your medications, or do you think you might in the future? No 06/27/2023 Does your family have troubl e paying for medicine? (Household - for ages 0-17 years) Not on file 06/27/2023 Transportation Needs Answer Date Record ed READ ONLY Do you have troubl e getting a ride to medical visits or work? Sometimes True 06/27/2023 Does your family have a hard time getting a ride to doctors visits? (Household - for ages 0-17 years) Not on file 06/27/2023 Has lack of transportation k ept you from medical appointments, meetings, work, or from getting things needed for daily living? Check all that apply. (Adult - for ages 18 years and over) Not on file 06/27/2023 Do you (or your family) have trouble finding or paying for a ride (transportation)? (Household - for ages 0-17 years) Not on file 06/27/2023 Housing Stability Answer Date Recorded Do you currently live in a s helter or have no steady place to sleep at night? No 06/27/2023 READ ONLY Do you think you a re at risk of becoming homeless? No 06/27/2023 Does your family worry about paying for your home or becoming homeless? (Household - for ages 0-17 years) Not on file 0 06/27/2023 Are you homeless or worried that you might be in the future? (Adult - for ages 18 years and over) Not on file Are you (or your family) earl eless or worried that you might be in the future? (Household - for ages 0-17 years) Not on file Food Insecurity Answer Date Recorded Do you need food for this week? No 06/27/2023 Are you able to get enough f ood for your family? (Household - for ages 0-17 years) Not on file 06/27/2023 Does your family need food t his week? (Household - for ages 0-17 years) Not on file 06/27/2023 Do you always have enough fo od for your family? (Household - for ages 0-17 years) Not on file 06/27/2023 Sex and Gender Information Value Date Recorded Sex Assigned at Female 11/02/2018 10:17 AM EDT Gender Identity Female 11/02/2018 10:17 AM EDT Sexual Orientation Straight 11/02/2018 10 :17 AM EDT Job Start Date Occupation Industry Not on file Not on file Not on file documented as of this encounter Functional Status Functional Status Response Date of Assess ment Are you deaf or do you have serious difficulty h earing? No 05/19/2019 Are you blind or do you have serious difficulty seeing, even when wearing glasses? No 05/19/2019 Do you have serious difficul ty walking or climbing stairs? (5 years old or older) Yes 05/19/2019 Do you have difficulty dress ing or bathing? (5 years old or older) Yes 05/19/2019 Because of a physical, menta l, or emotional condition, do you have difficulty doing errands alone such as visiting a doctor s office or shopping? (15 years old or older) Yes 05/19/20 19 Cognitive Status Response Date of Assessm ent Because of a physical, menta l, or emotional condition, do you have serious difficulty concentrating, remembering, or making decisions? (5 years old or older) No 05/19/2019 documented as of this encounter Miscellaneous Notes * Telephone Encounter - Bird Syed CMA - 02/22/2024 4:17 PM EDT Spoke with pt and reviewed results, pt agreeable to seeing rheumatology, stated she received a voice mail from scheduling for rheumatology earlier today. * Telephone Encounter - Bird Syed CMA - 02/22/2024 4:17 PM EDT ----- Message from López Edward MD sent at 02/22/2024 8:26 AM EDT ----- Patient with osteoporosis, despite being on evista. Would suggest seeing hiroc specialist to see ifdifferent med/injectable needed for osteoporosis documented in this encounter Plan of Treatment Upcoming Encounters Date Type Department Care Team (Late st Contact Info) Description 03/12/2024 11:30 AM EDT Office Visit Neurology [address], [place] [phone] Js Lopez MD [address] [place] [address] 04/09/2024 2:00 PM EST Office Visit General [facility] [address] [facility] [address] López Edward MD [address] [place] [address] 06/14/2024 1:30 PM EST [facility] [address] [place] [address] Noemi Raymundo, ARMANI [address] [place] [address] Scheduled Procedures Name Priority Associated Diagnoses Date/Ti me COLONOSCOPY FLEXIBLE PROXIMA L DIAGNOSTIC Recall History of colonic polyps Health Maintenance Due Date Last Done Comments Cologuard 1994 Sigmoidoscopy 1994 Zoster Vaccines (1 of 2) 1999 Fecal Occult Blood Test 08/16/2014 08/17/19 14, 04/23/2011, 05/14/2001, Additional history exists COVID-19 Vaccine ( season) 2024 05/22/2021, 07/30/2020, 07/09/2020 Influenza Vaccine (FLU shot) (#1) 2024 03/14/2023, 03/16/2022, 02/06/2021, Additional history exists Adult Wellness Visit 03/31/2024 03/31/2023, 01/23/20 22 TSH 09/13/2024 09/14/2023, 12/21, 12/23/2021, Additional history exists Mammogram 11/07/2024 11/08/2023, 10/21, 12/29/2021, Additional history exists O2 ASSESSMENT COMPLETED IN PAST YEAR FOR COPD 02/15/2025 02/16/2024 DXA Scan 02/19/2026 02/20/2024, 07/21, 02/21/2017, Additional history exists Colonoscopy 03/25/2026 03/25/2021, 07/2020, 03/25/2021, Additional history exists Colorectal Cancer Screening 03/25/2026 DTap/Tdap Vaccines (3 - Td or Tdap) 11/24/2026 11/24/2016, 05/15/2007 Pneumococcal Vaccine: 65+ Years Completed 09/01/2015, 06/04/2014, 04/06/2007 VITAMIN D LEVEL ONCE IN A LIFETIME-USE SMARTSET# [id number] Completed 01/23/2020, 02/08/2017, 11/18/2015, Additional history exists Alpha-1 Antitrypsin Completed 08/15/2020 RETIRED - COLONOSCOPY-EVERY 5 YRS AGES 18-100 Discontinued 03/25/2021, 03/25/2021, 03/25/2021, Additional history exists Lung Cancer Screening Completed 10/26/2023 , 06/29/2021, 06/30/2020, Additional history exists HPV (Gardasil) Vaccine Aged Out No lo nger eligible based on patient's age to complete this topic Hepatitis B Vaccine Aged Out No longe r eligible based on patient's age to complete this topic MENINGOCOCCAL (MENACTRA/MENVEO) Aged Out No longer eligible based on patient's age to complete this topic documented as of this encounter Medical Devices Implanted Type Area Automatic Data Processing Planner Device Identifier Shelf Expiration Date Model / Serial / Lot [employer], Embosphere, 100-300 Units Implanted:Qty: 1 on 05/21/2019 by Kadeem Ware MD at OR [facility] N/A: Head [email or web address] 12/20/2021 [id number] / [id number] / [id number] [employer], [place]are [place], Axium Prime, Detachable Coil System,[id number] Implanted:Qty: 1 on 05/21/2019 by Kadeem Ware MD at OR [facility] N/A: Head [employer] 10/02/2021 APB-1-2-HX -ES / APB-1-2-HX -ES / [id number] [employer], [place]are [place], Axium Prime, Detachable Coil System,[id number] Implanted:Qty: 1 on 05/21/2019 by Kadeem Ware MD at OR [facility] N/A: Head [employer] 03/06/2021 APB-1-3-HX -ES / APB-1-3-HX -ES / [id number] documented as of this encounter Advance Directives * Full Code (Latest Code Status on File) Date Activated Date Inactivated Comments 05/19/2019 8:38 AM 05/28/2019 7:54 PM This order r eflects the patients wishes and were consensually agreed upon. Care Teams Finish Repair Worker Relationship Specialty Start Date End Date López Edward MD [address] [facility], [place] [id number] PCP - General Internal Medicine 07/14/18 documented as of this encounter
--- OUTSIDE RECORDS SUMMARY | 2024-02-26 03:35 | External Medical Summary | Summary of Care ---
Author Name Unknown Organization [facility] Address [address] [place] [address] Phone [phone] Care Team Providers Care Business Support Associate Name Role Phone López Schulte MD Primary Care Provider + Reason for Visit * Reason Comments eRx-Medication Refill Encounter Details Date Type Department Care Team (Late st Contact Info) Description 12/21/2023 Refill General Internal Medicine [facility] [address] [facility] [place] [id number] López Schulte MD [address] [place] [address] Gastroesophageal reflux disease without esophagitis Allergies Active Allergy Reactions Criticality Noted Date [...] as of this encounter (statuses as of 12/22/2023) Medications Medication Sig Dispensed Refills Start Date End Date Status VITAMIN D 1000 UNIT PO CAPSIndications:V itamin D deficiency 1 capsule daily 30 11 0 Active LAMICTAL 200 MG PO TABS Take 1 Tablet by mouth at bedtime. 3 Active Nutritional Supplements (ENSURE) Take by mouth 2 times a day. One can Active acetaminophen (TYLENOL) 500 MG Tablet Take 1 Tablet by mouth every 4 hours as needed for Pain (or Fever. Do not exceed 3000 mg daily of all Acetaminophen products combined.). Active Coenzyme Q10 (COQ10) 100 MG CAPS Take 2 Caps by mouth at bedtime. 7 Active Probiotic Product (PROBIOTIC & ACIDOPHILUS EX ST) Capsule Take 1 Cap by mouth daily. 7 Active Calcium Carbonate 600 MG Tablet Take 2 Tablets by mouth in the morning. 7 Active polyethylene glycol 3350 (MIRALAX) packet Take 1 Packet by mouth daily as needed for Constipation. Active Uagotzs-Nzatnlf-B ethyl Jaskaran 1.2-5.7-6.3 % External Patch Apply 1 Patch topically to affected area as needed for Pain. For neck and shoulders Active Spacer/Aero-Holdi ng Chambers DEVIIndications:P ulmonary emphysema, unspecified emphysema type (HCC),Oral thrush Use with inhaler. 2 Device 9 Active triamcinolone acetonide (ARISTOCORT) 0.1 % creamIndications: Medication reaction, initial encounter Apply topically to affected area 2 times a day. To affected area. 60 g 5 0 Active Adapalene 0.1 % External Gel (Differin) APPLY TOPICALLY TO AFFECTED AREA AT BEDTIME. APPLY TO FACE AREA NEEDED 45 g 1 1 Active Zoster Vac Recomb Adjuvanted 50 MCG/0.5ML Intramuscular Suspension Reconstituted (Shingrix)Indicat ions:Need for shingles vaccine Inject 0.5 mL into a large muscle now and repeat dose in 60 to 180 days 1 Each 1 2 Active Additional Information Patient not taking.Reported on 06/27/2023 Paliperidone Palmitate ER 78 MG/0.5ML Intramuscular Suspension Prefilled SyringeIndication s:Schizoaffective disorder, bipolar type (HCC) Inject 78 mg into a large muscle every 4 weeks. 2 Active Rosuvastatin Calcium 20 MG Oral Tablet (Crestor)Indicati ons:Dyslipidemia, goal LDL below 70 TAKE 1 TABLET BY MOUTH EVERY DAY IN THE MORNING 90 Tablet 3 3 Active oxygen IN GAS Administer 2 L/min(Oxygen) into nostril at bedtime. 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 (AT LEAST 30 MIN PRIOR TO BREAKFAST OR OTHER MEDS). 90 Tablet 3 4 Active Linzess 145 MCG Oral Capsule (linaCLOtide) TAKE 1 CAPSULE BY MOUTH EVERY DAY BEFORE BREAKFAST 90 Capsule 1 4 Active Primidone 50 MG Oral Tablet (Mysoline)Indicat ions:Abnormal involuntary movement TAKE 2 TABLETS BY MOUTH IN THE AM, 2 TABLETS IN THE AFTERNOON AND 3 TABLETS AT BEDTIME 630 Tablet 3 4 Active Raloxifene HCl 60 MG Oral Tablet (Evista)Indicatio ns:Osteoporosis TAKE 1 TABLET BY MOUTH EVERYDAY AT BEDTIME 90 Tablet 3 4 Active Metamucil Fiber Oral Tablet Chewable Take by mouth. Active Estradiol 0.1 MG/GM Vaginal Cream (Estrace) USE 1/2 APPLICATORFUL INTO VAGINA 2X A WEEK 42.5 g 1 4 Active clonazePAM 1 MG Oral Tablet (KlonoPIN)Indicat ions:Essential tremor TAKE 1 TABLET BY MOUTH THREE TIMES A DAY 90 Tablet 2 4 Active Carbidopa-Levodop a 25-100 MG Oral Tablet (Sinemet)Indicati ons:Essential tremor,Spasmodic torticollis,Parki nsonian features Add 1/2 tab one dose at a time, every 3 days, up to 2 tabs 3 times day 180 Tablet 6 4 Active Famotidine 20 MG Oral Tablet (Pepcid)Indicatio ns:GERD (gastroesophageal reflux disease) TAKE 1 TABLET BY MOUTH TWICE A DAY 180 Tablet 3 4 Active Omeprazole 20 MG Oral Capsule Delayed Release (PriLOSEC)Indicat ions:Gastroesopha geal reflux disease without esophagitis TAKE 1 CAP BY MOUTH DAILY. 1 HOUR BEFORE THE FIRST MEAL OF THE DAY 90 Capsule 3 4 Active Dicyclomine HCl 10 MG Oral Capsule (Bentyl) TAKE 1 CAPSULE BY MOUTH TWICE A DAY IF NEEDED FOR LOWER ABDOMINAL PAIN 180 Capsule 4 Active Omeprazole 20 MG Oral Capsule Delayed Release (PriLOSEC)Indicat ions:Gastroesopha geal reflux disease without esophagitis TAKE 1 CAP BY MOUTH DAILY. 1 HOUR BEFORE THE FIRST MEAL OF THE DAY 90 Capsule 3 3 12/22/19 24 Discontinued documented as of this encounter (statuses as of 12/22/2023) Active Problems Problem Noted Date Diagnosed Date [...] as of this encounter (statuses as of 12/22/2023) Resolved Problems Problem Noted Date Diagnosed Date [...] program 12/26/2017 12/24/2019 Overview: DO NOT DELETE [facility] DETECT Study: Project # [id number], Children'S Aide: Ihsan Rucker, PhD. SUMMARY: Goal: Establish test [...] contact study staff at ; after hours Children'S Aide via the [facility] hospital computer aided design operator . Please contact study team before resolving/deleting from patients problem list. Study phone number: [phone]. Diagnosis changed due to Research Module. Go to Snapshot for study details. Encounter for examination fo r normal comparison and control in clinical research program 12/26/2017 01/21/2022 Overview: DO NOT DELETE - [facility] DETECT Study: Project # [id number], Children'S Aide: Napoleon Dean, MS, MPH. SUMMARY: Goal: Establish [...] contact study staff at ; after hours Children'S Aide via the [facility] hospital computer aided design operator . - Please contact study team before resolving/deleting from patients problem list. Study phone number: [phone]. Diagnosis changed due to Research Module. Go [...] as of this encounter (statuses as of 12/22/2023) Immunizations Name Administration Dates Next Due 01/24/2014,11/08/2013 04/29/2014 COVID-19 mRNA, LNP-s, No Pre serve, 2-Dose Series (Pfizer) 07/30/2020,07/09/2020 COVID-19, mRNA, LNP-s, PF, B ooster, 100mcg/0.5mg (Moderna) 05/22/2021 PPD 06/08/2019,05/30/2019 Pneumococcal Conjugate Vacc, 13 Valent (Prevnar) 06/04/2014 Pneumococcal Polysaccharide PPV23 (Pneumovax) 09/01/2015,04/06/2007 Season Influenza, Quad, PF, Adjuvanted, 65+ Yrs, IM (FLUAD) 03/14/2023,01/23/2020 Seasonal Influenza, PF, 6 M & above, IM , (FluLaval or Fluzone) 03/09/2018 Seasonal Influenza, Quadriva lent Hd (Fluzone Hd) 03/16/2022,02/06/2021 Seasonal Influenza, Quadriva lent Hd, 65+ Yrs 03/29/2019 Seasonal Influenza, Quadriva lent, No Preserve, IM 02/08/2017,02/18/2016 Seasonal Influenza, Split, I IV3, With Preserve, Inj 01/28/2015,04/09/2014,05/14/2013,10/0 05/2012,04/19/2012,04/01/2010,04/28/20 09,03/12/2008,04/06/2007 Seasonal Influenza, Trivalen t, Adjuvanted, 65+ yrs 03/29/2019 TD, Preservative Free 11/24/2016 TDAP, Age [...] money to get more. Never true 06/27/2023 Sex and Gender Information Value Date [...] encounter Miscellaneous Notes * Telephone Encounter - Lloyd Ward [facility] - 12/22/2023 8:05 AM EDTSigned Prescriptions: Disp Refills Omeprazole 20 MG Oral Capsule Delayed Rele*90 Cap*3 Sig: TAKE 1 CAP BY MOUTH DAILY. 1 HOUR BEFORE THE FIRST MEAL OF THE DAYAuthorizing Provider: Pearl SCHULTE User: LLOYD WARD documented in this encounter Plan of Treatment Upcoming Encounters Date Type Department Care Team (Late st Contact Info) Description 01/17/2024 10:00 AM EDT Scheduled Telephone Neurology [address] [phone] Paradise Winchester LPN [address] [place], [place] [id number] 02/20/2024 2:00 PM EDT Imaging Radiology, [address] [place] [address] 03/12/2024 11:30 AM EDT Office Visit Neurology Tera [address] [phone] Js Lopez MD [address] [place] [address] 04/09/2024 2:00 PM EST [facility] [place] [address] [place] [address] López Schulte MD [address] [place] [address] 06/14/2024 1:30 PM EST Telemedicine [facility], [address] [place] [address] Zackary Noemi Huffmanen, RDN [address] [address] Scheduled Procedures Name Priority Associated Diagnoses Date/Ti me COLONOSCOPY FLEXIBLE PROXIMA L DIAGNOSTIC Recall History of colonic polyps Health Maintenance Due Date Last Done Comments Cologuard 1994 Sigmoidoscopy 1994 Zoster Vaccines (1 of 2) 1999 Fecal Occult Blood Test 08/16/2014 08/17/19 14, 04/23/2011, 05/14/2001, Additional history exists DXA Scan 08/05/2021 08/06/2019, 06/2016, 08/20/2015, Additional history exists COVID-19 Vaccine ( season) 2023 05/22/2021, 07/30/2020, 07/09/2020 Influenza Vaccine (FLU shot) (#1) 2024 03/14/2023, 03/16/2022, 02/06/2021, Additional history exists TSH 09/13/2024 09/14/2023, 12/21, 12/23/2021, Additional history exists Mammogram 11/07/2024 11/08/2023, 10/21, 12/29/2021, Additional history exists O2 ASSESSMENT COMPLETED IN PAST YEAR FOR COPD 11/21/2024 11/22/2023 Colonoscopy 03/25/2026 03/25/2021, 07/2020, 03/25/2021, Additional history exists Colorectal Cancer Screening 03/25/2026 DTaP,Tdap,and Td Vaccines (3 - Td or Tdap) 11/24/2026 11/24/2016, 05/15/2007 Pneumococcal Vaccine: 65+ Years Completed 09/01/2015, 06/04/2014, 04/06/2007 VITAMIN D LEVEL ONCE IN A LIFETIME-USE SMARTSET# [id number] Completed 01/23/2020, 02/08/2017, 11/18/2015, Additional history exists [...] this encounter Medical Devices Implanted Type Area Garment Alteration Examiner Device Identifier Shelf Expiration Date Model / Serial / Lot [employer], Embosphere, 100-300 Units Implanted:Qty: 1 on 05/21/2019 by Kadeem Ware MD at OR [facility] N/A: Head [employer] 12/20/2021 [id number] / [id number] / [id number], Bare [place], Axium Prime, Detachable Coil System,[id number] Implanted:Qty: 1 on 05/21/2019 by Kadeem Ware MD at OR [facility] N/A: Head [employer] 10/02/2021 APB-1-2-HX -ES / APB-1-2-HX -ES / [id number] [id number], Bare [place], Axium Prime, Detachable Coil System,[id number] Implanted:Qty: 1 on 05/21/2019 by Kadeem Ware MD at OR [facility] N/A: Head [employer] 03/06/2021 APB-1-3-HX -ES / APB-1-3-HX -ES / [id number] documented as of this encounter Visit Diagnoses Diagnosis Gastroesophageal reflux disease without esophagitis Esophageal reflux documented in this encounter Advance Directives * Full Code (Latest Code Status on File) Date Activated Date Inactivated Comments 05/19/2019 8:38 AM 05/28/2019 7:54 PM This order r eflects the patients wishes and were consensually agreed upon. Care Teams Business Support Associate Relationship Specialty Start Date End Date López Schulte MD [address] [place] [address] PCP - General Internal Medicine 07/14/18 documented as of this encounter
--- OUTSIDE RECORDS SUMMARY | 2024-02-26 03:35 | External Medical Summary | Summary of Care ---
Author Name Unknown Organization [facility] Address [address] [place] [address] Phone [phone] Care Team Providers Care Posting Clerk Name Role Phone López Edward MD Primary Care Provider + Reason for Visit * Reason Onset Date Comments Medication Refill 01/13/2024 Encounter Details Date Type Department Care Team (Late st Contact Info) Description 01/13/2024 Refill Neurology [address] [place] [address] [place] [address] Sommer Lopez MD [address] [place] [address] Essential tremor; Spasmodic torticollis; Parkinsonian features Allergies Active Allergy Reactions Criticality Noted Date [...] as of this encounter (statuses as of 01/14/2024) Medications Medication Sig Dispensed Refills Start Date End Date Status VITAMIN D 1000 UNIT PO CAPSIndications:Vi tamin D deficiency 1 capsule daily 30 11 [...] mouth daily as needed for Constipation. Active Celfzfo-Wvbinno-Fs thyl Jaskaran 1.2-5.7-6.3 % External Patch Apply 1 Patch topically to affected area as needed for Pain. For neck and shoulders Active Spacer/Aero-Holdin g Chambers DEVIIndications:Pu lmonary emphysema, unspecified emphysema type (HCC),Oral thrush Use with inhaler. 2 Device 9 Active triamcinolone acetonide (ARISTOCORT) 0.1 % creamIndications:M edication reaction, initial encounter Apply topically to affected area 2 times a day. To affected area. 60 g 5 0 Active Adapalene 0.1 % External Gel (Differin) APPLY TOPICALLY TO AFFECTED AREA AT BEDTIME. APPLY TO FACE AREA NEEDED 45 g 1 1 Active Zoster Vac Recomb Adjuvanted 50 MCG/0.5ML Intramuscular Suspension Reconstituted (Shingrix)Indicati ons:Need for shingles vaccine Inject 0.5 mL into a large muscle now and repeat dose in 60 to 180 days 1 Each 1 2 Active Additional Information Patient not taking.Reported on 06/27/2023 Paliperidone Palmitate ER 78 MG/0.5ML Intramuscular Suspension Prefilled SyringeIndications :Schizoaffective disorder, bipolar type (HCC) Inject 78 mg into a large muscle every 4 weeks. 2 Active Rosuvastatin Calcium 20 MG Oral Tablet (Crestor)Indicatio ns:Dyslipidemia, goal LDL below 70 TAKE 1 TABLET BY MOUTH EVERY DAY IN THE MORNING 90 Tablet 3 3 Active oxygen IN GAS Administer 2 L/min(Oxygen) into nostril at bedtime. 3 Active Levothyroxine Sodium 50 MCG Oral Tablet (Levoxyl)Indicatio ns:Hypothyroidism due to acquired atrophy of thyroid TAKE 1 TABLET BY MOUTH IN THE MORNING. (AT LEAST 30 MIN PRIOR TO BREAKFAST OR OTHER MEDS). 90 Tablet 3 4 Active Linzess 145 MCG Oral Capsule (linaCLOtide) TAKE 1 CAPSULE BY MOUTH EVERY DAY BEFORE BREAKFAST 90 Capsule 1 4 Active Primidone 50 MG Oral Tablet (Mysoline)Indicati ons:Abnormal involuntary movement TAKE 2 TABLETS BY MOUTH IN THE AM, 2 TABLETS IN THE AFTERNOON AND 3 TABLETS AT BEDTIME 630 Tablet 3 4 Active Raloxifene HCl 60 MG Oral Tablet (Evista)Indication s:Osteoporosis TAKE 1 TABLET BY MOUTH EVERYDAY AT BEDTIME 90 Tablet 3 4 Active Metamucil Fiber Oral Tablet Chewable Take by mouth. Active Estradiol 0.1 MG/GM Vaginal Cream (Estrace) USE 1/2 APPLICATORFUL INTO VAGINA 2X A WEEK 42.5 g 1 4 Active clonazePAM 1 MG Oral Tablet (KlonoPIN)Indicati ons:Essential tremor TAKE 1 TABLET BY MOUTH THREE TIMES A DAY 90 Tablet 2 4 Active Famotidine 20 MG Oral Tablet (Pepcid)Indication s:GERD (gastroesophageal reflux disease) TAKE 1 TABLET BY MOUTH TWICE A DAY 180 Tablet 3 4 Active Omeprazole 20 MG Oral Capsule Delayed Release (PriLOSEC)Indicati ons:Gastroesophage al reflux disease without esophagitis TAKE 1 CAP BY MOUTH DAILY. 1 HOUR BEFORE THE FIRST MEAL OF THE DAY 90 Capsule 3 4 Active Dicyclomine HCl 10 MG Oral Capsule (Bentyl) TAKE 1 CAPSULE BY MOUTH TWICE A DAY IF NEEDED FOR LOWER ABDOMINAL PAIN 180 Capsule 4 Active Carbidopa-Levodopa 25-100 MG Oral Tablet (Sinemet)Indicatio ns:Essential tremor,Spasmodic torticollis,[place] sonian features Add 1/2 tab one dose at a time, every 3 days, up to 2 tabs 3 times day 540 Tablet 4 Active Carbidopa-Levodopa 25-100 MG Oral Tablet (Sinemet)Indicatio ns:Essential tremor,Spasmodic torticollis,[place] sonian features Add 1/2 tab one dose at a time, every 3 days, up to 2 tabs 3 times day 180 Tablet 6 4 01/13/20 24 Discontinu ed(Refill) documented as of this encounter (statuses as of 01/14/2024) Active Problems Problem Noted Date Diagnosed Date [...] as of this encounter (statuses as of 01/14/2024) Resolved Problems Problem Noted Date Diagnosed Date [...] program 12/26/2017 12/24/2019 Overview: DO NOT DELETE [facility] DETECT Study: Project # [id number], Swing Tender: Ihsan Rucker, PhD. SUMMARY: Goal: Establish test [...] contact study staff at ; after hours Swing Tender via the [facility] line o scribe operator . Please contact study team before resolving/deleting from patients problem list. Study phone number: [phone]. Diagnosis changed due to Research Module. Go to Snapshot for study details. Encounter for examination fo r normal comparison and control in clinical research program 12/26/2017 01/21/2022 Overview: DO NOT DELETE - [facility] Study: Project # [id number], Swing Tender: Napoleon Dean, MS, MPH. SUMMARY: Goal: Establish [...] contact study staff at ; after hours Swing Tender via the [facility] hospital line o scribe operator . - Please contact study team before resolving/deleting from patients problem list. Study phone number: [phone]. Diagnosis changed due to Research Module. Go [...] as of this encounter (statuses as of 01/14/2024) Immunizations Name Administration Dates Next Due 01/24/2014,11/08/2013 [...] encounter Miscellaneous Notes * Telephone Encounter - Yasmeen Doyle, [facility] - 01/14/2024 7:21 AM EDTSigned Prescriptions: Disp Refills Carbidopa-Levodopa 25-100 MG Oral Tablet (*540 Ta*0 Sig: Add 1/2tab one dose at a time, every 3 days, up to 2 tabs 3 times dayAuthorizing Provider: SOMMER LOPEZ User: YASMEEN DOYLE * Telephone Encounter - Yasmeen Doyle RPh - 01/14/2024 7:21 AM EDT Reissued balance of refills on current medication order(s) as a 90 day script. Thanks, Yasmeen Doyle, [place] Clinical Pharmacist [facility] [phone] 01/14/2024, 7:21 AM * Telephone Encounter - Jill Cowan PHARM Tech - 01/13/2024 10:37 AM EDT Pharmacy is requesting a 90-day supply, pre-edited RXs as such. Please review and approve if appropriate. Pending Prescriptions: Disp Refills Carbidopa-Levodopa 25-100 MG Oral Tablet *270 Ta*4 Sig: Add 1/2 tab one dose at a time, every 3 days, up to 2 tabs 3 times day Last Visit: 12/02/2023 (in office), Visit date not found (telemedicine) 01/17/2024 If no future appointments scheduled, and last appointment is greater than a year ago, please schedule patient for an appointment Last date the medication was ordered: 12/01 Patient Phone Numbers Labs: Lab Results Component Value Date/Time CREAT 0.6 09/14/2023 02:39 PM CREAT 0.8 01/23/2020 12:45 PM POTASSIUM 4.0 09/14/2023 02:39 PM POTASSIUM 4.5 01/23/2020 12:45 PM TSH 3.90 09/14/2023 02:39 PM TSH 3.89 01/23/2020 12:45 PM LDLCALC 80 09/14/2023 02:39 PM LDLCALC 108 01/04/2019 02:08 PM LDLDIRECT NOT APPLICABLE 01/04/2019 02:08 PM ALT 51 (H) 09/14/2023 02:39 PM ALT 16 11/12/2019 01:20 PM documented in this encounter Plan of Treatment Upcoming Encounters Date Type Department Care Team (Late st Contact Info) Description 01/17/2024 10:00 AM EDT Scheduled Telephone Neurology [address] [phone] Paradise Winchester LPN [address] [place] [address] 02/20/2024 2:00 PM EDT Imaging Radiology, [address] [place] [address] 03/12/2024 11:30 AM EDT Office Visit Neurology [address] [phone] Sommer Lopez MD [address] [facility] [place] [address] 04/09/2024 2:00 PM EST Office Visit General Internal Medicine [facility] [address] [facility] [place] [address] López Edward MD [address] [place] [place] [address] 06/14/2024 1:30 PM EST Telemedicine [facility], [facility] [address] [facility] [address] [address] Noemi Raymundo, ARMANI [address] [place] [address] Scheduled Procedures Name Priority Associated Diagnoses Date/Ti me COLONOSCOPY FLEXIBLE PROXIMA L DIAGNOSTIC Recall History of colonic polyps Health Maintenance Due Date Last Done Comments Cologuard 1994 Sigmoidoscopy 1994 Zoster Vaccines (1 of 2) 1999 Fecal Occult Blood Test 08/16/2014 08/17/19 14, 04/23/2011, 05/14/2001, Additional history exists DXA Scan 08/05/2021 08/06/2019, 100 06/2016, 08/20/2015, Additional history exists COVID-19 Vaccine [...] D LEVEL ONCE IN A LIFETIME-USE SMARTSET# [id number] Completed 01/23/2020, 02/08/2017, 11/18/2015, Additional history exists [...] this encounter Medical Devices Implanted Type Area Orchid Transplanter Device Identifier Shelf Expiration Date Model / Serial / Lot [employer], Embosphere, 100-300 Units Implanted:Qty: 1 on 05/21/2019 by Kadeem Ware MD at OR [facility] N/A: Head [employer] 12/20/2021 S220GH / [id number] / [id number] [id number], Bare [place], Axium Prime, Detachable Coil System,[id number] Implanted:Qty: 1 on 05/21/2019 by Kadeem Ware MD at OR [facility] N/A: Head [employer] 10/02/2021 APB-1-2-HX -ES / APB-1-2-HX -ES / [id number], Bare [place], Axium Prime, Detachable Coil System,[id number] Implanted:Qty: 1 on 05/21/2019 by Kadeem Ware MD at OR [facility] N/A: Head [employer] 03/06/2021 APB-1-3-HX -ES / APB-1-3-HX -ES / [id number] documented as of this encounter Visit Diagnoses Diagnosis Essential tremor Essential and other specified forms of tremor Spasmodic torticollis Parkinsonian features Abnormal involuntary movements documented in this encounter Advance Directives * Full Code (Latest Code Status on File) Date Activated Date Inactivated Comments 05/19/2019 8:38 AM 05/28/2019 7:54 PM This order r eflects the patients wishes and were consensually agreed upon. Care Teams Posting Clerk Relationship Specialty Start Date End Date López Edward MD [address] [place] [address] PCP - General Internal Medicine 07/14/18 documented as of this encounter
--- OUTSIDE RECORDS SUMMARY | 2024-02-26 03:35 | External Medical Summary | Summary of Care ---
Author Name Unknown Organization [facility] Address [address] [place] [address] Phone [phone] Care Team Providers Care Retaining Room Cutter Name Role Phone López Edward MD Primary Care Provider + Reason for Referral * Precert (Within 24 hrs (call dept; emergent)) - Pending Review Specialty Diagnoses / Procedures Referred By Contac t Referred To Contact Radiology Diagnoses Traumatic injury of head, subsequent encounter Procedures CT HEAD/BRAIN WO CONTRAST Annie Camacho MD [address] [place] [address] Referral ID Status Reason Start Date Expiration Date V isits Requested Visits Authorized [id number] Pending Review 02/16/2024 999 999 Reason for Visit * Reason Comments Leg Pain Encounter Details Date Type Department Care Team (Late st Contact Info) Description 02/16/2024 11:00 AM EDT Office Visit General Internal Medicine [facility] [address] [place] [address] Annie Camacho MD [address] [place] [address] Personal history of fall*; Hip pain, right; Traumatic injury of head, subsequent encounter Allergies Active Allergy Reactions Criticality Noted Date [...] as of this encounter (statuses as of 02/16/2024) Medications Medication Sig Dispensed Refills Start Date [...] mouth daily as needed for Constipation. 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 SUMMARY: Goal: Establish test [...] contact study staff at ; after hours Telecommunications Network Planner via the [facility] bulk plant operator . Please contact study team before resolving/deleting from patients problem list. Study phone number: [phone]. Diagnosis changed due to Research Module. Go to Snapshot for study details. Encounter for examination fo r normal comparison and control in clinical research program 12/26/2017 01/21/2022 Overview: DO NOT DELETE - [facility] BARRY Study: Project # [id number], Telecommunications Network Planner: Napoleon Dean, MS, MPH. SUMMARY: Goal: Establish [...] contact study staff at ; after hours Telecommunications Network Planner via the [facility] bulk plant operator . - Please contact study team before resolving/deleting from patients problem list. Study phone number: [phone]. Diagnosis changed due to Research Module. Go [...] as of this encounter (statuses as of 02/16/2024) Immunizations Name Administration Dates Next Due 01/24/2014,11/08/2013 04/29/2014 COVID-19 mRNA, LNP-s, No Pre serve, 2-Dose Series ([employer] [place]) 07/30/2020,07/09/2020 COVID-19, mRNA, LNP-s, PF, B ooster, [...] Preserve, IM 02/08/2017,02/18/2016 Seasonal Influenza, Trivalen t, (IIV3), with Preserv, (Fluzone) 01/28/2015,04/09/2014,05/14/2013,1005/2012,04/19/2012,04/01/2010,04/28/20 09,03/12/2008,04/06/2007 Seasonal Influenza, Trivalen t, Adjuvanted, 65+ YRS, [...] on file documented as of this encounter Last Filed Vital Signs Vital Sign Reading Time Taken Comments Blood Pressure 106/52 02/16/2024 11:08 AM EDT Pulse 95 02/16/2024 11:08 AM EDT Temperature 36.9 C (98.5 F) 02/16/2024 11:08 AM E DT Respiratory Rate - - Oxygen Saturation 98% 02/16/2024 11:08 AM EDT Inhaled Oxygen Concentration - - Weight 45.9 kg (101 lb 4.8 oz) 02/16/2024 11:08 AM EDT Height - - Body Mass Index 19.14 11/22/2023 1:38 PM EDT documented in this encounter Functional Status Functional Status Response [...] (15 years old or older) Yes 05/19/20 Cognitive Status Response Date of Assessm ent Because of a physical, menta l, or emotional condition, do you have serious difficulty concentrating, remembering, or making decisions? (5 years old or older) No 05/19/2019 documented as of this encounter Progress Notes * Annie Camacho MD - 02/16/2024 11:07 AM EDT HPI: Sirisha Patterson is a 73 year old female who presents with: Chief Complaint Patient presents with Leg Pain Patient is here for the acute visit. Had fall 2 weeks back.states she was by herself and fell in her kitchen while walking. She was starting to bowl turner and didn't have cane or walker with her at that time. She is not sure if she hit her head but did have minor bruise on rt cheek. Had Rt upper arm pain and Rt thigh, hip area pain. Now rt upper arm pain is back to normal, not hurting but still have some pain at Rt inner thiogh and pelvis. Never had headache or vision change. No sleep issue. No pain with neck. No weakness, tingling, numbness. Pt prefers getting CT Head looking at her past hx. Patient Active Problem List Diagnosis Hypothyroidism due to acquired atrophy of thyroid GERD (gastroesophageal reflux disease) Orthostatic hypotension CTS (carpal tunnel syndrome) Esophageal dysmotility Thoracic aortic ectasia (HCC) High risk for fracture due to osteoporosis by DEXA scan Ectopic atrial tachycardia (HCC) Action tremor Irritable bowel syndrome with constipation Spasmodic torticollis COPD, group B, by GOLD 2017 classification (HCC) History of subdural hematoma Mild mitral regurgitation Diastolic dysfunction Schizoaffective disorder, bipolar type (HCC) Affective psychosis, bipolar (HCC) Delusional disorder (HCC) Moderate protein-calorie malnutrition (HCC) Dyslipidemia, goal LDL below 70 Coronary artery calcification Current Outpatient Medications Medication Sig Dispense Refill VITAMIN D 1000 UNIT PO CAPS 1 capsule daily 30 11 LAMICTAL 200 MG PO TABS Take 1 Tablet by mouth at bedtime. Nutritional Supplements (ENSURE) Take by mouth 2 times a day. One can acetaminophen (TYLENOL) 500 MG Tablet Take 1 Tablet by mouth every 4 hours as needed for Pain (or Fever. Do not exceed 3000 mg daily of all Acetaminophen products combined.). Coenzyme Q10 (COQ10) 100 MG CAPS Take 2 Caps by mouth at bedtime. Probiotic Product (PROBIOTIC & ACIDOPHILUS EX ST) Capsule Take 1 Cap by mouth daily. Calcium Carbonate 600 MG Tablet Take 2 Tablets by mouth in the morning. polyethylene glycol 3350 (MIRALAX) packet Take 1 Packet by mouth daily as needed for Constipation. Cgsfhnf-Mmqlezo-Djotxi Jaskaran 1.2-5.7-6.3 % External Patch Apply 1 Patch topically to affected area asneeded for Pain. For neck and shoulders Spacer/Aero-Holding Chambers MAURISIO Use with inhaler. 2 Device 0 triamcinolone acetonide (ARISTOCORT) 0.1 % cream Apply topically to affected area 2 times a day. Toaffected area. 60 g 5 Adapalene 0.1 % External Gel (Differin) APPLY TOPICALLY TO AFFECTED AREA AT BEDTIME. APPLY TO FACE AREA NEEDED 45 g 1 Zoster Vac Recomb Adjuvanted 50 MCG/0.5ML Intramuscular Suspension Reconstituted (Shingrix) Inject 0.5 mL into a large muscle now and repeat dose in 60 to 180 days (Patient not taking: Reported on 06/27/2023) 1 Each 1 Paliperidone Palmitate ER 78 MG/0.5ML Intramuscular Suspension Prefilled Syringe Inject 78 mg into a large muscle every 4 weeks. Rosuvastatin Calcium 20 MG Oral Tablet (Crestor) TAKE 1 TABLET BY MOUTH EVERY DAY IN THE MORNING 90Tablet 3 oxygen IN GAS Administer 2 L/min(Oxygen) into nostril at bedtime. Levothyroxine Sodium 50 MCG Oral Tablet (Levoxyl) TAKE 1 TABLET BY MOUTH IN THE MORNING. (AT LEAST 30 MIN PRIOR TO BREAKFAST OR OTHER MEDS). 90 Tablet 3 Primidone 50 MG Oral Tablet (Mysoline) TAKE 2 TABLETS BY MOUTH IN THE AM, 2 TABLETS IN THE AFTERNOON AND 3 TABLETS AT BEDTIME 630 Tablet 3 Raloxifene HCl 60 MG Oral Tablet (Evista) TAKE 1 TABLET BY MOUTH EVERYDAY AT BEDTIME 90 Tablet 3 Metamucil Fiber Oral Tablet Chewable Take by mouth. Estradiol 0.1 MG/GM Vaginal Cream (Estrace) USE 1/2 APPLICATORFUL INTO VAGINA 2X A WEEK 42.5 g 1 Famotidine 20 MG Oral Tablet (Pepcid) TAKE 1 TABLET BY MOUTH TWICE A DAY 180 Tablet 3 Omeprazole 20 MG Oral Capsule Delayed Release (PriLOSEC) TAKE 1 CAP BY MOUTH DAILY. 1 HOUR BEFORE THE FIRST MEAL OF THE DAY 90 Capsule 3 Dicyclomine HCl 10 MG Oral Capsule (Bentyl) TAKE 1 CAPSULE BY MOUTH TWICE A DAY IF NEEDED FOR LOWERABDOMINAL PAIN 180 Capsule 0 clonazePAM 1 MG Oral Tablet (KlonoPIN) TAKE 1 TABLET BY MOUTH THREE TIMES A DAY 90 Tablet 2 Carbidopa-Levodopa 25-100 MG Oral Tablet (Sinemet) Take 2 tabs 3 times day 540 Tablet 0 Linzess 145 MCG Oral Capsule (linaCLOtide) TAKE 1 CAPSULE BY MOUTH EVERY DAY BEFORE BREAKFAST 90 Capsule 0 No current facility-administered medications for this visit. The patient's medication list was reviewed and updated as needed. Review of patient's allergies indicates: Allergen Reactions Adhesive Tape Band aids Other reaction(s): RASH, BLISTER Other Reaction(s): Rash, blisters Beclomethasone Took one dose, Had swelling on lip Other reaction(s): swelling of lip Cheese Stroke- aged cheese Other reaction(s): anything with tyramine/aged caused a stroke Topiramate Breathing problems and eye problems Other reaction(s): BREATHING PROBLEM & EYE PROBLEMS. Tyramine Stroke, hypertension Other reaction(s): WAS BELIEVED IT CAUSED A STROKE Albuterol Other reaction(s): unknown per pt Beclomethasone Lips edema Ephedrine Reacts with other meds Other reaction(s): REACTS WITH ANOTHER MED WOULD LIKE THIS REMOVED Epinephrine Other (Please comment) Taking NARDIL and use of epinephrine WOULD LIKE THIS REMOVED Epinephrine Other reaction(s): reacts to a med WOULD LIKE THIS REMOVED Food (See Comments) Hypertension Any food with Tyramine Latex Rash, blisters Levalbuterol Other reaction(s): unknown per pt Procaine Other reaction(s): reacts to nardil medication pt is on Doxycycline Rash Other reaction(s): rash Gabapentin Rash, affected mood Other reaction(s): rash Nickel Other reaction(s): Rash Past Medical History: Diagnosis Date Abnormal involuntary movement 04/08/2006 paternal family history of tremors and Parkinsons Acquired hypothyroidism 08/17/2020 Adrenal insufficiency (HCC) 10/15/2016 Bipolar disorder (HCC) COPD (chronic obstructive pulmonary disease) ([facility]) Depressive disorder, not elsewhere classified Dr Fonseca and Sandy Fuentes Diastolic dysfunction 08/05/2020 GERD (gastroesophageal reflux disease) Heart failure ([facility]) High risk for fracture due to osteoporosis by DEXA scan 02/23/2017 Hypothyroidism 01/23/2013 INFORMATION Basal ganglia neuroma Lung nodule Mild mitral regurgitation 08/05/2020 Other osteoporosis Other specified acquired hypothyroidism Peripheral neuropathy PTSD (post-traumatic stress disorder) 11/23/2011 S/P coil embolization of cerebral aneurysm 05/21/2019 right middle meningeal artery frontal and parietal branches Spasmodic torticollis 03/29/2019 Tachycardia atrial Tobacco use disorder Social History Socioeconomic History Marital status: Number of children: 2 Occupational History Occupation: disability for psychiatric reasons and tremors Tobacco Use Smoking status: Former Current packs/day: 0.00 Average packs/day: 1 pack/day for 30.0 years (30.0 ttl pk-yrs) Types: Cigarettes Start date: 05/23/1981 Quit date: 05/23/2011 Years since quittin.7 Smokeless tobacco: Never Vaping Use Vaping status: Never Used Substance and Sexual Activity Alcohol use: Not Currently Comment: rare Drug use: Never Sexual activity: Not Currently Partners: Male Other Topics Concern Service No Blood Transfusions No Caffeine Concern No Occupational Exposure No Hobby Hazards No Sleep Concern No Stress Concern No Weight Concern No Special Diet No Back Care No Exercise Yes Seat Belt Yes Self-Exams Yes Social History Narrative No pets. No mold. Merged History Encounter Born and raised in [place], moved to [place] 1977. and lives alone. Has 3 children with one in the area. Disabled due to fatigue and tremors. 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 Social Determinants of Health Financial Resource Strain: Low Risk (06/27/2023) Financial Resource Strain Do you have any trouble paying for your medications, or do you think you might in the future? (Adult - for ages 18 years and over): No Food Insecurity: No Food Insecurity (06/27/2023) Food Insecurity Do you need food for this week? (Adult - for ages 18 years and over): No Transportation Needs: Unmet Transportation Needs (06/27/2023) Transportation Needs Do you have trouble getting a ride to medical visits or work? (Adult - for ages 18 years and over):Sometimes True Social Connections: Socially Integrated (06/27/2023) Social Connections How often do you feel lonely or isolated from those around you? (Adult - for ages 18 years and over): Sometimes Housing Stability: Low Risk (06/27/2023) Housing Stability Do you currently live in a jail or have no steady place to sleep at night? (Adult - for ages 18 years and over): No Do you think you are at risk of becoming homeless? (Adult - for ages 18 years and over): No Family History Problem Relation Name Age of Onset Melanoma Mother Hypertension Mother Thyroid Disorder Mother Colon cancer Mother age 83 Heart Disorder Father CABG age 50; age 85 Cancer Sister Josy Gooden Anal cancer with mets Colon cancer Sister Josy Gooden Rectal No Known Problems Sister Maribeth No Known Problems Sister Nichol Other (Fibromyalgia) Sister Sheryl Other (carpal tunnel) Sister Sheryl Other (rods in his spine) Brother Ra No Known Problems Brother Giovanny No Known Problems Brother Gm No Known Problems Brother Juno Endocrine Disorder Grandmother (Maternal) Neurological Disorder Grandmother (Paternal) movement disorder Cancer Grandfather (Paternal) Cancer Aunt (Unspecified) maternal Cancer Uncle (Unspecified) Theodure Neurological Disorder Uncle (Unspecified) paternal parkinson disease/parkinson disease Cancer Uncle (Unspecified) Anupam maternal-stomach ca Parkinsonism Aunt (Paternal) Eye Problems No significant family history denies fm: glaucoma, blindness, AMD, RD Breast Cancer No significant family history All system negative except as per hpi. OBJECTIVE: Blood pressure 106/52, pulse 95, temperature 36.9 C (98.5 F), weight 45.9 kg (101 lb 4.8 oz), SpO2 98%, not currently . PHYSICAL EXAM: EXT: no edema, cyanosis, peripheral pulses palpable bilaterally No large joint swelling, no redness, range of motion normal. Skin normal, no bruise anywhere. Gait walks with walker. Mood stable No focal weakness Scalp area no lump or bruise noted. ASSESSMENT AND PLAN: Personal history of fall (Primary) Fall precautions advised. Advised walker or cane all the time. Advised tylenol as needed. Advised heating pad or cold pack locally. ER if getting worse. Hip pain, right - XR HIP UNILAT 2-3 VIEWS INCLUDING AP PELVIS - XR FEMUR MINIMUM 2 VIEWS Traumatic injury of head, subsequent encounter - CT HEAD/BRAIN WO CONTRAST Annie Camacho MD documented in this encounter Nursing Notes * Samantha Brandon CMA - 02/16/2024 11:06 AM EDT Patient presents today due to having a fall about 2 weeks ago and landed on her right side She states that she thought she was getting better but has had a lot of inner thigh pain on her right leg. She states the pain is almost like a pulling pain. She is unsure if there was any bruising to the area due to being unable to see the area. She also landed on her right arm and put her elbow into her ribs. She is unsure if she injured her head but is concerned due to history of subdural hematoma after fall injury. documented in this encounter Plan of Treatment Upcoming Encounters Date Type Department Care Team (Late st Contact Info) Description 02/16/2024 1:00 PM EDT Imaging Radiology [address] [facility] [address] 02/20/2024 2:00 PM EDT Imaging Radiology, [facility] [address] [place] [address] [place] [address] 03/12/2024 11:30 AM EDT Office Visit Neurology [address] [phone] Js Lopez MD [address] [facility] [place] [address] 04/09/2024 2:00 PM EST Office Visit General Internal Medicine [facility] [address] [place] [address] López Edward MD [address] [place] [address] 06/14/2024 1:30 PM EST Telemedicine [facility], [facility] [address] [facility] [place] [place] [address] Noemi Raymundo, ARMANI [address] [facility] [place] [place] [address] Pending Results Name Type Priority Associated Diagnoses Date /Time XR FEMUR MINIMUM 2 VIEWS Medical Imaging STAT Hip pain, right 02/16/2024 11:31 AM EDT XR PELVIS 1 VIEW Medical Imaging STAT Hip pain, right 02/16/2024 11:31 AM EDT Scheduled Orders Name Type Priority Associated Diagnoses Orde r Schedule CT HEAD/BRAIN WO CONTRAST Medical Imaging STAT Traumatic injury of head, subsequent encounter Ordered: 02/16/2024 Scheduled Procedures Name Priority Associated Diagnoses Date/Ti [...] D LEVEL ONCE IN A LIFETIME-USE SMARTSET# [id number] Completed 01/23/2020, 02/08/2017, 11/18/2015, Additional history exists [...] this encounter Medical Devices Implanted Type Area Elevator Supervisor Device Identifier Shelf Expiration Date Model / Serial / Lot [employer], Embosphere, 100-300 Units Implanted:Qty: 1 on 05/21/2019 by Kadeem Ware MD at OR [facility] N/A: Head [employer] 12/20/2021 [id number] / [id number] / [id number], Bare Mcgrath, Axium Prime, Detachable Coil System,[id number] Implanted:Qty: 1 on 05/21/2019 by Kadeem Ware MD at OR [facility] N/A: Head [employer] 10/02/2021 APB-1-2-HX -ES / APB-1-2-HX -ES / [id number] [id number], Bare Mcgrath, Axium Prime, Detachable Coil System,[id number] Implanted:Qty: 1 on 05/21/2019 by Kadeem Ware MD at OR [facility] N/A: Head [employer] 03/06/2021 APB-1-3-HX -ES / APB-1-3-HX -ES / [id number] documented as of this encounter Visit Diagnoses Diagnosis Personal history of fall- Primary Hip pain, right Pain in joint, pelvic region and thigh Traumatic injury of head, subsequent encounter documented in this encounter Advance Directives * Full Code (Latest Code Status on File) Date Activated Date Inactivated Comments 05/19/2019 8:38 AM 05/28/2019 7:54 PM This order r eflects the patients wishes and were consensually agreed upon. Care Teams Retaining Room Cutter Relationship Specialty Start Date End Date López Edward MD [address] [place] [address] PCP - General Internal Medicine 07/14/18 documented as of this encounter
--- OUTSIDE RECORDS SUMMARY | 2024-02-26 03:35 | External Medical Summary | Summary of Care ---
Author Name Unknown Organization [facility] Address [address] [place] [address] Phone [phone] Care Team Providers Care Marine Machinist Name Role Phone López Edward MD Primary Care Provider + Reason for Visit * Reason Onset Date Comments Follow Up 01/17/2024 Encounter Details Date Type Department Care Team (Late st Contact Info) Description 01/17/2024 10:00 AM EDT Scheduled Telephone Neurology [address], [address] [place] [address] Paradise Winchester, EXAMINER RATING CLERK [address] [place] [address] Allergies Active Allergy Reactions Criticality Noted Date [...] as of this encounter (statuses as of 01/17/2024) Medications Medication Sig Dispensed Refills Start Date [...] mouth daily as needed for Constipation. Active Pbrmvym-Cnqlvrv-Dtu hyl Jaskaran 1.2-5.7-6.3 % External Patch Apply [...] OTHER MEDS). 90 Tablet 3 05/25/2023 Active Linzess 145 MCG Oral Capsule (linaCLOtide) TAKE 1 CAPSULE BY MOUTH EVERY DAY BEFORE BREAKFAST 90 Capsule 1 07/25/2023 Active Primidone 50 MG Oral Tablet (Mysoline)Indicatio [...] A WEEK 42.5 g 1 11/08/2023 Active clonazePAM 1 MG Oral Tablet (KlonoPIN)Indicatio ns:Essential tremor TAKE 1 TABLET BY MOUTH THREE TIMES A DAY 90 Tablet 2 10/24/2023 Active Famotidine 20 MG Oral Tablet (Pepcid)Indications [...] LOWER ABDOMINAL PAIN 180 Capsule 12/21/2023 Active Carbidopa-Levodopa 25-100 MG Oral Tablet (Sinemet)Indication s:Essential tremor,Spasmodic torticollis,Jose onian features Add 1/2 tab one dose at a time, every 3 days, up to 2 tabs 3 times day 540 Tablet 01/14/2024 Active documented as of this encounter (statuses as of 01/17/2024) Active Problems Problem Noted Date Diagnosed Date [...] as of this encounter (statuses as of 01/17/2024) Resolved Problems Problem Noted Date Diagnosed Date [...] program 12/26/2017 12/24/2019 Overview: [facility] Study: Project # [id number], Yarn Salvager: Ihsan Rucker, PhD. SUMMARY: Goal: Establish test [...] contact study staff at ; after hours Yarn Salvager via the [facility] hospital concrete boom operator . Please contact study team before resolving/deleting from patients problem list. Study phone number: [phone]. Diagnosis changed due to Research Module. Go to Snapshot for study details. Encounter for examination fo r normal comparison and control in clinical research program 12/26/2017 01/21/2022 Overview: DO NOT DELETE - [facility] DETECT Study: Project # [id number], Yarn Salvager: Napoleon Dean, MS, MPH. SUMMARY: Goal: Establish [...] contact study staff at ; after hours Yarn Salvager via the [facility] hospital concrete boom operator . - Please contact study team before resolving/deleting from patients problem list. Study phone number: [phone]. Diagnosis changed due to Research Module. Go [...] as of this encounter (statuses as of 01/17/2024) Immunizations Name Administration Dates Next Due 01/24/2014,11/08/2013 [...] Influenza, Split, I IV3, With Preserve, Inj 01/28/2015,04/09/2014,05/14/2013,1005/2012,04/19/2012,04/01/2010,04/28/20 09,03/12/2008,04/06/2007 Seasonal Influenza, Trivalen t, Adjuvanted, [...] No 05/19/2019 documented as of this encounter Plan of Treatment Upcoming Encounters Date Type Department Care Team (Late st Contact Info) Description 02/20/2024 2:00 PM EDT Imaging Radiology, [facility] [address] [facility] [place] [address] 03/12/2024 11:30 AM EDT Office Visit Neurology [address] [place] [address] [address] Js Lopez MD [address] [facility] [place] [address] 04/09/2024 2:00 PM EST Office Visit General Internal Medicine Serg Ortiz [place] [address] [place] [address] López Edward MD [address] [place] [address] 06/14/2024 1:30 PM EST Telemedicine [facility] [address] [facility] [place] [address] Noemi Raymundo, RDN [address] [place] [address] Scheduled Procedures Name Priority Associated Diagnoses Date/Ti [...] D LEVEL ONCE IN A LIFETIME-USE SMARTSET# 53825 Completed 01/23/2020, 02/08/2017, 11/18/2015, Additional history exists [...] this encounter Medical Devices Implanted Type Area Insurance Investigator Device Identifier Shelf Expiration Date Model / Serial / Lot [employer], Embosphere, 100-300 Units Implanted:Qty: 1 on 05/21/2019 by Kadeem Ware MD at OR [facility] N/A: Head [employer] 12/20/2021 S220GH / [id number] / [id number] Ev3 Inc, Bare [place], Axium Prime, Detachable Coil System,[id number] Implanted:Qty: 1 on 05/21/2019 by Kadeem Ware MD at OR [facility] N/A: Head [employer] 10/02/2021 APB-1-2-HX -ES / APB-1-2-HX -ES / [id number] [id number] Inc, Bare [place], Axium Prime, Detachable Coil System,[id number] Implanted:Qty: 1 on 05/21/2019 by Kadeem Ware MD at OR [facility] N/A: Head [employer] 03/06/2021 APB-1-3-HX -ES / APB-1-3-HX -ES / [id number] documented as of this encounter Advance Directives * Full Code (Latest Code Status on File) Date Activated Date Inactivated Comments 05/19/2019 8:38 AM 05/28/2019 7:54 PM This order r eflects the patients wishes and were consensually agreed upon. Care Teams Marine Machinist Relationship Specialty Start Date End Date López Edwrad MD [address] [place] [address], [place] [address] PCP - General Internal Medicine 07/14/18 documented as of this encounter
--- OUTSIDE RECORDS SUMMARY | 2024-02-26 03:35 | External Medical Summary | Summary of Care ---
Author Name Unknown Organization [facility] Address [address] [place] [address] Phone [phone] Care Team Providers Care Alternative Dispute Resolution Mediator Name Role Phone López Edward MD Primary Care Provider + Reason for Visit * Reason Onset Date Comments Medication Refill 01/24/2024 Encounter Details Date Type Department Care Team (Late st Contact Info) Description 01/24/2024 Refill [facility] [address] [place] [address] Sommer Lopez MD [address] [place] [address] Essential tremor Allergies Active Allergy Reactions Criticality Noted Date [...] as of this encounter (statuses as of 01/25/2024) Medications Medication Sig Dispensed Refills Start Date [...] mouth daily as needed for Constipation. Active Zugtryf-Useedqe-Wu thyl Jaskaran 1.2-5.7-6.3 % External Patch Apply [...] A WEEK 42.5 g 1 4 Active Famotidine 20 MG Oral Tablet [...] 25-100 MG Oral Tablet (Sinemet)Indicatio ns:Essential tremor,Spasmodic torticollis,Charleen sonian features Add 1/2 tab one dose at a time, every 3 days, up to 2 tabs 3 times day 540 Tablet 4 Active clonazePAM 1 MG Oral Tablet (KlonoPIN)Indicati ons:Essential tremor TAKE 1 TABLET BY MOUTH THREE TIMES A DAY 90 Tablet 2 4 Active clonazePAM 1 MG Oral Tablet (KlonoPIN)Indicati ons:Essential tremor TAKE 1 TABLET BY MOUTH THREE TIMES A DAY 90 Tablet 2 4 01/24/20 24 Discontinu ed(Refill) documented as of this encounter (statuses as of 01/25/2024) Active Problems Problem Noted Date Diagnosed Date [...] as of this encounter (statuses as of 01/25/2024) Resolved Problems Problem Noted Date Diagnosed Date [...] program 12/26/2017 12/24/2019 Overview: DO NOT DELETE [facility] DETECT Study: Project # [id number], Behavioral Psychologist: Ihsan Rucker, PhD. SUMMARY: Goal: Establish test [...] contact study staff at ; after hours Behavioral Psychologist via the [facility] computing machine operator . Please contact study team before resolving/deleting from patients problem list. Study phone number: [phone]. Diagnosis changed due to Research Module. Go to Snapshot for study details. Encounter for examination fo r normal comparison and control in clinical research program 12/26/2017 01/21/2022 Overview: DO NOT DELETE - [facility] Study: Project # [id number], Behavioral Psychologist: Napoleon Dean, MS, MPH. SUMMARY: Goal: Establish [...] contact study staff at ; after hours Behavioral Psychologist via the [facility] computing machine operator . - Please contact study team before resolving/deleting from patients problem list. Study phone number: [phone]. Diagnosis changed due to Research Module. Go [...] as of this encounter (statuses as of 01/25/2024) Immunizations Name Administration Dates Next Due 01/24/2014,11/08/2013 04/29/2014 COVID-19 mRNA, LNP-s, No Pre serve, 2-Dose Series (RegeneRx) 07/30/2020,07/09/2020 COVID-19, mRNA, LNP-s, PF, B ooster, [...] Influenza, Trivalen t, (IIV3), with Preserv, (Fluzone) 01/28/2015,04/09/2014,05/14/2013,10/05/2012,04/19/2012,04/01/2010,04/28/20 09,03/12/2008,04/06/2007 Seasonal Influenza, Trivalen t, Adjuvanted, 65+ [...] encounter Miscellaneous Notes * Telephone Encounter - Sommer Lopez MD - 01/25/2024 10:11 AM EDT Signed Prescriptions: Disp Refills clonazePAM 1 MG Oral Tablet (KlonoPIN) 90 Tab*2 Sig: TAKE 1 TABLET BY MOUTH THREE TIMES A DAYAuthorizing Provider: SOMMER LOPEZ * Telephone Encounter - Sommer Lopez MD - 01/25/2024 10:11 AM EDT Signed Prescriptions: Disp Refills clonazePAM 1 MG Oral Tablet (KlonoPIN) 90 Tab*2 Sig: TAKE 1 TABLET BY MOUTH THREE TIMES A DAY Authorizing Provider: SOMMER LOPEZ * Telephone Encounter - Paradise Winchester LPN - 01/25/2024 9:50 AM EDT Pending Prescriptions: Disp Refills clonazePAM 1 MG Oral Tablet (KlonoPIN) 90 Tab*2 Sig: TAKE 1 TABLET BY MOUTH THREE TIMES A DAY * Telephone Encounter - Paradise Winchester LPN - 01/25/2024 9:50 AM EDT Pending Prescriptions: Disp Refills clonazePAM 1 MG Oral Tablet (KlonoPIN) 90 Tab*2 Sig: TAKE 1 TABLET BY MOUTH THREE TIMES A DAY * Telephone Encounter - Zoey Jimenez drying machine receiver - 01/25/2024 8:40 AM EDT Patient LVM to check on status of Clonazepam refill. Caller can be reached at [phone]. Patient stated she is completely out of the medication and has none for today 01/25/2024 Thank you, Zoey Jimenez CPhT-Adv Debt Counselor Rail Director [facility] 01/25/2024,8:40 AM * Telephone Encounter - Shy Herbert, pretzel packer - 01/24/2024 4:05 PM EDT Patient calling to check on status of clonazepam. Caller can be reached at [phone]. Caller states she is completely out of medication and has not had any today. Please review and send a new prescription if appropriate. Thank you, Shy Herbert Debt Counselor I [facility] 01/24/2024,4:05 PM * Telephone Encounter - Paradise Winchester LPN - 01/24/2024 2:28 PM EDT Pending Prescriptions: Disp Refills clonazePAM 1 MG Oral Tablet (KlonoPIN) 90 Tab*2 Sig: TAKE 1 TABLET BY MOUTH THREE TIMES A DAY * Telephone Encounter - Clara Goode CPhT - 01/24/2024 12:41 PM EDT Patient is up to date for office visits. Patient is out of medication Pending Prescriptions: Disp Refills clonazePAM 1 MG Oral Tablet (KlonoPIN) 90 Tab*2 Sig: TAKE 1 TABLET BY MOUTH THREE TIMES A DAY Last Visit: 06/27/2023 (in office), Visit date not found (telemedicine) Next Visit: Visit date not found If no future appointments scheduled, and last appointment is greater than a year ago, please schedule patient for a follow-up appointment Last date the medication was ordered: 10/24/2023 Pharmacy: [id number] [id number] [facility] Is this request for a controlled substance?Yes Urine Drug Screen: Results for orders placed or performed during the hospital encounter of 05/19/19 TOX SCREEN, URINE, W/ CONFIRMATION Result Value Amphetamine NEGATIVE Benzodiazepines NEGATIVE Cannabinoids NEGATIVE Cocaine Metabolite NEGATIVE HYDROCODONE NEGATIVE Morphine / Codeine NEGATIVE METHADONE METABOLITE NEGATIVE OXYCODONE NEGATIVE TOX COMMENT THE ABOVE SCREENING RESULTS ARE PRESUMPTIVE AND CAN ONLY BE USED FOR MEDICAL PURPOSES. POSITIVE RESULTS REFLEX TO CONFIRMATORY TESTING. Cutoff Concentration *Note: Due to a large number of results and/or encounters for the requested time period, some results have not been displayed. A complete set of results can be found in Results Review. Patient Phone Numbers CAIS [phone] Labs: Lab Results Component Value Date/Time CREAT 0.6 09/14/2023 02:39 PM CREAT 0.8 01/23/2020 12:45 PM POTASSIUM 4.0 09/14/2023 02:39 PM POTASSIUM 4.5 01/23/2020 12:45 PM TSH 3.90 09/14/2023 02:39 PM TSH 3.89 01/23/2020 12:45 PM LDL 80 09/14/2023 02:39 PM LDL 108 01/04/2019 02:08 PM LDL NOT APPLICABLE 01/04/2019 02:08 PM LDLCALC 110 10/19/2013 12:00 AM ALT 51 (H) 09/14/2023 02:39 PM ALT 16 11/12/2019 01:20 PM documented in this encounter Plan of Treatment Upcoming Encounters Date Type Department Care Team (Late st Contact Info) Description 02/20/2024 2:00 PM EDT Imaging Radiology, [address] [place] [address] 03/12/2024 11:30 AM EDT Office Visit Neurology [address] [place] [address] [phone] Sommer Lopez MD [address] [place] [address] 04/09/2024 2:00 PM EST Office Visit General Internal Medicine [facility] [address] [place] [address] López Edward MD [address] [facility] [place], [place] [address] 06/14/2024 1:30 PM EST Telemedicine Nutrition, [facility] [address] [facility] [place] [address] Noemi Raymundo, TRISTANN [address] [place] [address] Scheduled Procedures Name Priority Associated Diagnoses Date/Ti me COLONOSCOPY FLEXIBLE PROXIMA L DIAGNOSTIC Recall History of colonic polyps Health Maintenance Due Date Last Done Comments Cologuard 1994 Sigmoidoscopy 1994 Zoster Vaccines (1 of 2) 1999 Fecal Occult Blood Test 08/16/2014 08/17/19 14, 04/23/2011, 05/14/2001, Additional history exists DXA Scan 08/05/2021 08/06/2019, 10/0 06/2016, 08/20/2015, Additional history exists COVID-19 Vaccine [...] D LEVEL ONCE IN A LIFETIME-USE SMARTSET# 54182 Completed 01/23/2020, 02/08/2017, 11/18/2015, Additional history exists [...] this encounter Medical Devices Implanted Type Area Environmental Research Project Manager Device Identifier Shelf Expiration Date Model / Serial / Lot [employer] Inc, Embosphere, 100-300 Units Implanted:Qty: 1 on 05/21/2019 by Kadeem Ware MD at OR [facility] N/A: Head [employer] 12/20/2021 S220GH / [id number] / [id number] Ev3 Inc, Bare [place], Axium Prime, Detachable Coil System,[id number] Implanted:Qty: 1 on 05/21/2019 by Kadeem Ware MD at OR [facility] N/A: Head [employer] 10/02/2021 APB-1-2-HX -ES / APB-1-2-HX -ES / [id number] [employer] Inc, Bare [place], Axium Prime, Detachable Coil System,[id number] Implanted:Qty: 1 on 05/21/2019 by Kadeem Ware MD at OR [facility] N/A: Head [employer] 03/06/2021 APB-1-3-HX -ES / APB-1-3-HX -ES / [id number] documented as of this encounter Visit Diagnoses Diagnosis Essential tremor Essential and other specified forms of tremor documented in this encounter Advance Directives * Full Code (Latest Code Status on File) Date Activated Date Inactivated Comments 05/19/2019 8:38 AM 05/28/2019 7:54 PM This order r eflects the patients wishes and were consensually agreed upon. Care Teams Alternative Dispute Resolution Mediator Relationship Specialty Start Date End Date López Edward MD [address] [place] [address] PCP - General Internal Medicine 07/14/18 documented as of this encounter
--- OUTSIDE RECORDS SUMMARY | 2024-02-26 03:35 | External Medical Summary | Summary of Care ---
Author Name Unknown Organization [facility] Address [address] [place] [address] Phone [phone] Care Team Providers Care Cytology Manager Name Role Phone López Edward MD Primary Care Provider + Reason for Visit * Reason Comments eRx-Medication Refill Encounter Details Date Type Department Care Team (Late st Contact Info) Description 02/13/2024 Refill Gastroenterology, [facility] [address] [place] [address] Minoo Akers CRNP [address] [place] [address] Allergies Active Allergy Reactions Criticality Noted Date [...] as of this encounter (statuses as of 02/15/2024) Medications Medication Sig Dispensed Refills Start Date [...] mouth daily as needed for Constipation. Active Mxdkwft-Mpwevba-A ethyl Jaskaran 1.2-5.7-6.3 % External Patch Apply [...] OTHER MEDS). 90 Tablet 3 4 Active Primidone 50 MG Oral Tablet [...] LOWER ABDOMINAL PAIN 180 Capsule 4 Active clonazePAM 1 MG Oral Tablet (KlonoPIN)Indicat ions:Essential tremor TAKE 1 TABLET BY MOUTH THREE TIMES A DAY 90 Tablet 2 4 Active Carbidopa-Levodop a 25-100 MG Oral Tablet (Sinemet)Indicati ons:Essential tremor,Spasmodic torticollis,Parki nsonian features Take 2 tabs 3 times day 540 Tablet 4 Active Linzess 145 MCG Oral Capsule (linaCLOtide) TAKE 1 CAPSULE BY MOUTH EVERY DAY BEFORE BREAKFAST 90 Capsule 4 Active Linzess 145 MCG Oral Capsule (linaCLOtide) TAKE 1 CAPSULE BY MOUTH EVERY DAY BEFORE BREAKFAST 90 Capsule 1 4 02/14/20 24 Discontinued documented as of this encounter (statuses as of 02/15/2024) Active Problems Problem Noted Date Diagnosed Date [...] as of this encounter (statuses as of 02/15/2024) Resolved Problems Problem Noted Date Diagnosed Date [...] DELETE [facility] DETECT Study: Project # [id number], Clinical Trial Manager: Ihsan Rucker, PhD. SUMMARY: Goal: Establish test [...] contact study staff at ; after hours Clinical Trial Manager via the [facility] machine operator transplanter . Please contact study team before resolving/deleting from patients problem list. Study phone number: [phone]. Diagnosis changed due to Research Module. Go to Snapshot for study details. Encounter for examination fo r normal comparison and control in clinical research program 12/26/2017 01/21/2022 Overview: DO NOT DELETE - [facility] Study: Project # [id number], Clinical Trial Manager: Napoleon Dean, MS, MPH. SUMMARY: Goal: Establish [...] contact study staff at ; after hours Clinical Trial Manager via the [facility] hospital machine operator transplanter . - Please contact study team before resolving/deleting from patients problem list. Study phone number: [phone]. Diagnosis changed due to Research Module. Go [...] as of this encounter (statuses as of 02/15/2024) Immunizations Name Administration Dates Next Due 01/24/2014,11/08/2013 04/29/2014 COVID-19 mRNA, LNP-s, No Pre serve, 2-Dose Series ([employer]) 07/30/2020,07/09/2020 COVID-19, mRNA, LNP-s, PF, B ooster, [...] encounter Miscellaneous Notes * Telephone Encounter - Boyd Juarez - 02/15/2024 4:26 PM EDT Received message from [facility] regarding patient needing an appointment. Patient was notified. Unable to reach patient, as there was no answer and no VM available to leave message. Letter was created to be sent out to the patient. * Telephone Encounter - Yasmeen Doyle [facility] - 02/14/2024 9:00 AM EDTSigned Prescriptions: Disp Refills Linzess 145 MCG Oral Capsule (linaCLOtide) 90 Cap*0 Sig: TAKE 1 CAPSULE BY MOUTH EVERY DAY BEFORE BREAKFAST Authorizing Provider: MINOO AKERS Ordering User: YASMEEN DOYLE * Telephone Encounter - Yasmeen Doyle [facility] - 02/14/2024 8:58 AM EDT Please contact patient so that an appointment can be scheduled with her GASTROENTEROLOGY provider. Refill authorized to hold patient over in the mean time. Last Visit: 10/08/2021 (in office), 01/17/2023 (telemedicine) Next Visit: Visit date not found Yasmeen Boone, PharmD Clinical Pharmacist [facility] ([facility]) [phone] 02/14/2024, 8:58 AM * Telephone Encounter - Rita Quintana OSA - 02/13/2024 2:41 PM EDT Pending Prescriptions: Disp Refills Linzess 145 MCG Oral Capsule [Pharmacy Med*90 Cap*1 Sig: TAKE 1 CAPSULE BY MOUTH EVERY DAY BEFORE BREAKFAST * Telephone Encounter - Rita Quintana OSA - 02/13/2024 2:36 PM EDT Patient declined to schedule an appointment at this time. Pending Prescriptions: Disp Refills Linzess 145 MCG Oral Capsule (linaCLOtide*90 Cap*1 Sig: TAKE 1 CAPSULE BY MOUTH EVERY DAY BEFORE BREAKFAST Last Visit: 10/08/2021 (in office), 01/17/2023 (telemedicine) Next Visit: Visit date not found If no future appointments scheduled, and last appointment is greater than a year ago, please schedule patient for a follow-up appointment Last date the medication was ordered: 07/25/2023 Pharmacy: [id number] [address] [facility] Is this request for a controlled substance?No it is not controlled. Urine Drug Screen: Results for orders placed [...] found in Results Review. Patient Phone Numbers Labs: Lab Results Component [...] State Jimbo Evans [address] [place] [address] Annie Camacho MD [address] [place] [address] 02/20/2024 2:00 PM EDT Imaging Radiology, [facility] [address] [facility] [place], [place] [address] 03/12/2024 11:30 AM EDT Office Visit Neurology [address] [place] [address] [place] [phone] Js Lopez MD [address] [facility] [place] [id number] 04/09/2024 2:00 PM EST Office Visit General Internal Medicine [facility] [address] [place] [address] López Edward MD [address] [place] [address] 06/14/2024 1:30 PM EST Telemedicine [facility] [address] [facility] [address] Noemi Raymundo, RDN [address] [place] [address] Scheduled Procedures Name Priority Associated Diagnoses Date/Ti me COLONOSCOPY FLEXIBLE PROXIMA L DIAGNOSTIC Recall History of colonic polyps Health Maintenance Due Date Last Done Comments Cologuard 1994 Sigmoidoscopy 1994 Zoster Vaccines (1 of 2) 1999 Fecal Occult Blood Test 08/16/2014 08/17/19 14, 04/23/2011, 05/14/2001, Additional history exists DXA Scan 08/05/2021 08/06/2019, 1006/2016, 08/20/2015, Additional history exists COVID-19 Vaccine ( season) 2024 05/22/2021, 07/30/2020, 07/09/2020 Influenza Vaccine (FLU shot) (#1) 2024 03/14/2023, 03/16/2022, 02/06/2021, Additional history exists Adult Wellness Visit 03/31/2024 03/31/2023, 01/23/20 22 TSH 09/13/2024 09/14/2023, 12/21, 12/23/2021, Additional history exists Mammogram 11/07/2024 11/08/2023, 10/21, 12/29/2021, Additional history exists O2 ASSESSMENT COMPLETED IN PAST YEAR FOR COPD 11/21/2024 11/22/2023 Colonoscopy 03/25/2026 03/25/2021, /07/2020, 03/25/2021, Additional history exists Colorectal Cancer Screening 03/25/2026 DTap/Tdap Vaccines (3 - Td or Tdap) 11/24/2026 11/24/2016, 05/15/2007 Pneumococcal Vaccine: 65+ Years Completed 09/01/2015, 06/04/2014, 04/06/2007 VITAMIN D LEVEL ONCE IN A LIFETIME-USE SMARTSET# 59419 Completed 01/23/2020, 02/08/2017, 11/18/2015, Additional history exists [...] this encounter Medical Devices Implanted Type Area Extrusion Die Repair Manager Device Identifier Shelf Expiration Date Model / Serial / Lot [employer] Inc, Embosphere, 100-300 Units Implanted:Qty: 1 on 05/21/2019 by Kadeem Ware MD at OR [facility] N/A: Head [employer] 12/20/2021 S220GH / [id number] / [id number] Ev3 Inc, Bare [place], Axium Prime, Detachable Coil System,[id number] Implanted:Qty: 1 on 05/21/2019 by Kadeem Ware MD at OR [facility] N/A: Head [employer] 10/02/2021 APB-1-2-HX -ES / APB-1-2-HX -ES / [id number] Ev[employer] Inc, Bare [place], Axium Prime, Detachable Coil System,[id number] Implanted:Qty: 1 on 05/21/2019 by Kadeem Ware MD at OR [facility] N/A: Head [employer] 03/06/2021 APB-1-3-HX -ES / APB-1-3-HX -ES / [id number] documented as of this encounter Advance Directives * Full Code (Latest Code Status on File) Date Activated Date Inactivated Comments 05/19/2019 8:38 AM 05/28/2019 7:54 PM This order r eflects the patients wishes and were consensually agreed upon. Care Teams Cytology Manager Relationship Specialty Start Date End Date López Edward MD [address] [place] [address] PCP - General Internal Medicine 07/14/18 documented as of this encounter
--- OUTSIDE RECORDS SUMMARY | 2024-02-26 03:35 | External Medical Summary | Summary of Care ---
Author Name Unknown Organization [facility] Address [address] [place] [address] Phone [phone] Care Team Providers Care Geothermal Operating Engineer Name Role Phone López Edward MD Primary Care Provider + Reason for Visit * Reason Onset Date Comments Medication Question 02/07/2024 Medication Refill 02/07/2024 Encounter Details Date Type Department Care Team (Late st Contact Info) Description 02/07/2024 Refill Neurology [facility] [place] [address] [place] [address] Sommer Lopez MD [address] [place] [address] Essential tremor; Spasmodic torticollis; Parkinsonian [...] as of this encounter (statuses as of 02/07/2024) Medications Medication Sig Dispensed Refills Start Date [...] mouth daily as needed for Constipation. Active Licyehc-Oqzicwv-Bu thyl Jaskaran 1.2-5.7-6.3 % External Patch Apply [...] A DAY 90 Tablet 2 4 Active Carbidopa-Levodopa 25-100 MG Oral Tablet (Sinemet)Indicatio ns:Essential tremor,Spasmodic torticollis,[place] sonian features Take 2 tabs 3 times day 540 Tablet 4 Active Carbidopa-Levodopa 25-100 MG Oral Tablet (Sinemet)Indicatio ns:Essential tremor,Spasmodic torticollis,[place] sonian features Add 1/2 tab one dose at a time, every 3 days, up to 2 tabs 3 times day 540 Tablet 4 02/07/20 24 Discontinu ed(Refill) documented as of this encounter (statuses as of 02/07/2024) Active Problems Problem Noted Date Diagnosed Date [...] as of this encounter (statuses as of 02/07/2024) Resolved Problems Problem Noted Date Diagnosed Date [...] program 12/26/2017 12/24/2019 Overview: DO NOT DELETE [facility] DETECT Study: Project # [id number], Bottle Packer: Ihsan Rucker, PhD. SUMMARY: Goal: Establish test [...] contact study staff at ; after hours Bottle Packer via the [facility] reflow operator . Please contact study team before resolving/deleting from patients problem list. Study phone number: [phone]. Diagnosis changed due to Research Module. Go to Snapshot for study details. Encounter for examination fo r normal comparison and control in clinical research program 12/26/2017 01/21/2022 Overview: DO NOT DELETE - [facility] DETECT Study: Project # [id number], Bottle Packer: Napoleon Dean, MS, MPH. SUMMARY: Goal: Establish [...] contact study staff at ; after hours Bottle Packer via the [facility] [place] [place] [facility] reflow operator . - Please contact study team before resolving/deleting from patients problem list. Study phone number: [phone]. Diagnosis changed due to Research Module. Go [...] as of this encounter (statuses as of 02/07/2024) Immunizations Name Administration Dates Next Due 01/24/2014,11/08/2013 04/29/2014 COVID-19 mRNA, LNP-s, No Pre serve, 2-Dose Series ([employer]) 07/30/2020,07/09/2020 COVID-19, mRNA, LNP-s, PF, B ooster, [...] Influenza, Trivalen t, (IIV3), with Preserv, (Fluzone) 01/28/2015,04/09/2014,05/14/2013,10/0 05/2012,04/19/2012,04/01/2010,04/28/20 09,03/12/2008,04/06/2007 Seasonal Influenza, Trivalen t, [...] Telephone Encounter - Sommer Lopez MD - 02/07/2024 2:48 PM EDT Signed Prescriptions: Disp Refills Carbidopa-Levodopa 25-100 MG Oral Tablet (*540 Ta*0 Sig: Take 2 tabs 3 times day Authorizing Provider: SOMMER LOPEZ * Telephone Encounter - Shawanda Raymundo CPhT - 02/07/2024 9:47 AM EDT Pharmacy requesting refills for Carbidopa-Levodopa 25-100 MG Oral Tablet (Sinemet . Upon chart review, medication is listed as discontinued, with discontinuation reason as "med list clean up". Pleaseadvise if you wish to continue this therapy for the patient. Thank you, Shawanda Raymundo CPhT [facility] 02/07/2024, 9:48 AM documented in this encounter Plan of Treatment Upcoming Encounters Date Type Department Care Team (Late st Contact Info) Description 02/20/2024 2:00 PM EDT Imaging Radiology, [address] [place] [address] 03/12/2024 11:30 AM EDT Office Visit Neurology [address] [place] [address] Sommer Lopez MD [address] [place] [address] 04/09/2024 2:00 PM EST Office Visit General Internal Medicine [facility] [address] [place] [address] López Edward MD [address] [place] [address] 06/14/2024 1:30 PM EST Telemedicine [facility], [facility] [address] [facility] [id number] Noemi Raymundo, RDN [address] [facility], [place] [address] Scheduled Procedures Name Priority Associated Diagnoses Date/Ti [...] D LEVEL ONCE IN A LIFETIME-USE SMARTSET# 60978 Completed 01/23/2020, 02/08/2017, 11/18/2015, Additional history exists [...] this encounter Medical Devices Implanted Type Area Counter Former Device Identifier Shelf Expiration Date Model / Serial / Lot T[employer] Inc, Embosphere, 100-300 Units Implanted:Qty: 1 on 05/21/2019 by Kadeem Ware MD at [place] [facility] [place] N/A: Head [employer] 12/20/2021 S220GH / [id number] / [id number] [id number] Inc, Bare Mechoopda, Axium Prime, Detachable Coil System,[id number] Implanted:Qty: 1 on 05/21/2019 by Kadeem Ware MD at OR [facility] [place] N/A: Head [employer] 10/02/2021 APB-1-2-HX -ES / APB-1-2-HX -ES / [id number] Inc, Bare Mechoopda, Axium Prime, Detachable Coil System,[id number] Implanted:Qty: 1 on 05/21/2019 by Kadeem Ware MD at OR [facility] [place] N/A: Head [employer] 03/06/2021 APB-1-3-HX -ES / APB-1-3-HX -ES / [id number] documented as of this encounter Visit Diagnoses Diagnosis Essential tremor Essential and other specified forms of tremor Spasmodic torticollis Parkinsonian features Abnormal involuntary movements documented in this encounter Advance Directives * Full Code (Latest Code Status on File) Date Activated Date Inactivated Comments 05/19/2019 8:38 AM 05/28/2019 7:54 PM This order r eflects the patients wishes and were consensually agreed upon. Care Teams Geothermal Operating Engineer Relationship Specialty Start Date End Date López Edward MD [address] [facility] [place] [address] PCP - General Internal Medicine 07/14/18 documented as of this encounter
--- OUTSIDE RECORDS SUMMARY | 2024-02-26 03:35 | External Medical Summary | Summary of Care ---
Author Name Unknown Organization [facility] Address [address] [place] [address] Phone [phone] Care Team Providers Care Environmental Compliance Technician Name Role Phone López Edward MD Primary Care Provider + Reason for Visit * Reason Onset Date Comments Follow Up 10/13/2023 Encounter Details Date Type Department Care Team (Late st Contact Info) Description 10/13/2023 Telephone [facility] [address] [place] [address] Js Lopez MD [address] [place] [address] Follow Up Allergies Active Allergy Reactions Criticality Noted Date [...] as of this encounter (statuses as of 01/12/2024) Medications Medication Sig Dispensed Refills Start Date [...] mouth daily as needed for Constipation. Active Cpinqda-Tjabmyb-Wfu hyl Jaskaran 1.2-5.7-6.3 % External Patch Apply [...] Oral Tablet Chewable Take by mouth. Active documented as of this encounter (statuses as of 01/12/2024) Active Problems Problem Noted Date Diagnosed Date [...] as of this encounter (statuses as of 01/12/2024) Resolved Problems Problem Noted Date Diagnosed Date [...] program 12/26/2017 12/24/2019 Overview: DO NOT DELETE [facility] DETECT Study: Project # [id number], Historian Research Assistant: Ihsan Rucker, PhD. SUMMARY: Goal: Establish test [...] contact study staff at ; after hours Historian Research Assistant via the [facility] wastewater treatment plant operator . Please contact study team before resolving/deleting from patients problem list. Study phone number: [phone]. Diagnosis changed due to Research Module. Go to Snapshot for study details. Encounter for examination fo r normal comparison and control in clinical research program 12/26/2017 01/21/2022 Overview: DO NOT DELETE - [facility] Study: Project # [id number], Historian Research Assistant: Napoleon Dean, MS, MPH. SUMMARY: Goal: Establish [...] contact study staff at ; after hours Historian Research Assistant via the [facility] wastewater treatment plant operator . - Please contact study team before resolving/deleting from patients problem list. Study phone number: [phone]. Diagnosis changed due to Research Module. Go [...] as of this encounter (statuses as of 01/12/2024) Immunizations Name Administration Dates Next Due 01/24/2014,11/08/2013 [...] Influenza, Split, I IV3, With Preserve, Inj 01/28/2015,04/09/2014,05/14/2013,100 05/2012,04/19/2012,04/01/2010,04/28/20 09,03/12/2008,04/06/2007 Seasonal Influenza, Trivalen t, Adjuvanted, [...] encounter Miscellaneous Notes * Telephone Encounter - Paradise Winchester LPN - 10/13/2023 9:11 AM EDT Spoke with patient and she feels that the botox does work, she has less head tremor * Telephone Encounter - Mary Kate Damico OSA - 10/13/2023 7:02 AM EDT Sent on 07/21/23: ANY FUTURE REQUESTS WILL REQUIRE UPDATED CLINICAL DOCUMENTATION REGARDING EFFECTIVENESS OF BOTOX Please advise as I need to get an auth documented in this encounter Plan of Treatment Upcoming Encounters Date Type Department Care Team (Late st Contact Info) Description 01/17/2024 10:00 AM EDT Scheduled Telephone Neurology [address] [place] [address] [phone] Paradise Winchester LPN [address] [facility] [address] 02/20/2024 2:00 PM EDT Imaging Radiology, [place] [address] [facility] [place] [address] 03/12/2024 11:30 AM EDT Office Visit Neurology [address] [place] [address] [phone] Js Lopez MD [address] [facility] [place] [address] 04/09/2024 2:00 PM EST Office Visit General Internal Medicine [facility] [address] [place] [address] López Edward MD [address] [place] [address] 06/14/2024 1:30 PM EST Telemedicine [facility], [address] [place] [address] Noemi Raymundo, RDN [address] [place] [address] Scheduled Procedures Name Priority Associated Diagnoses Date/Ti [...] D LEVEL ONCE IN A LIFETIME-USE SMARTSET# 38697 Completed 01/23/2020, 02/08/2017, 11/18/2015, Additional history exists [...] this encounter Medical Devices Implanted Type Area Reinforcing Steel Worker Device Identifier Shelf Expiration Date Model / Serial / Lot [employer], Embosphere, 100-300 Units Implanted:Qty: 1 on 05/21/2019 by Kadeem Ware [place] [facility] [place]: Head [employer] 12/20/2021 S220GH / [id number] / [id number] Inc, Bare [place], Axium Prime, Detachable Coil System,[id number] Implanted:Qty: 1 on 05/21/2019 by Kadeem Ware MD [place] [facility] [place]: Head [employer] 10/02/2021 APB-1-2-HX -ES / APB-1-2-HX -ES / [id number] [id number] Inc, Bare [place]ee, Axium Prime, Detachable Coil System,[id number] Implanted:Qty: 1 on 05/21/2019 by Kadeem Ware MD [place] [facility] [place]: Head [employer] 03/06/2021 APB-1-3-HX -ES / APB-1-3-HX -ES / [id number] documented as of this encounter Advance Directives * Full Code (Latest Code Status on File) Date Activated Date Inactivated Comments 05/19/2019 8:38 AM 05/28/2019 7:54 PM This order r eflects the patients wishes and were consensually agreed upon. Care Teams Environmental Compliance Technician Relationship Specialty Start Date End Date López Edward MD [address] [place] [address], [place] [phone] PCP - General Internal Medicine 07/14/18 documented as of this encounter
--- OUTSIDE RECORDS SUMMARY | 2024-02-26 03:35 | External Medical Summary | Summary of Care ---
Author Name Unknown Organization [facility] Address [address] [place] [address] Phone [phone] Care Team Providers Care Padded Products Finisher Name Role Phone López Edward MD Primary Care Provider + Reason for Visit * Reason Comments Follow Up Botox inj * Precert (Within 10 days (routine)) - Authorized Specialty Diagnoses / Procedures Referred By Contac t Referred To Contact Neurology Diagnoses Spasmodic torticollis Procedures NV INJECTION,ONABOTULINUMTOXIN A Js Lopez MD [address] [place] [address] Js Lopez MD [address] [place] [address] Referral ID Status Reason Start Date Expiration Date V isits Requested Visits Authorized [id number] Authorized Precert 10/15/2023 2024 2 2 Encounter Details Date Type Department Care Team (Late st Contact Info) Description 12/02/2023 3:00 PM EDT Office Visit Neurology [address] [place] [address] Js Lopez MD [address] [place] [address] Spasmodic torticollis*; Essential tremor; Parkinsonian features Allergies Active Allergy Reactions Criticality [...] mouth daily as needed for Constipation. Active Zfhrdxq-Bilaibx-W ethyl Jaskaran 1.2-5.7-6.3 % External Patch Apply [...] MOUTH TWICE A DAY 180 Tablet 3 3 12/05/19 24 Discontinued Omeprazole 20 MG Oral Capsule Delayed Release (PriLOSEC)Indicat ions:Gastroesopha geal reflux disease without esophagitis TAKE 1 CAP BY MOUTH DAILY. 1 HOUR BEFORE THE FIRST MEAL OF THE DAY 90 Capsule 3 3 12/22/19 24 Discontinued Dicyclomine HCl 10 MG Oral Capsule (Bentyl) TAKE 1 CAPSULE BY MOUTH TWICE A DAY IF NEEDED FOR LOWER ABDOMINAL PAIN 180 Capsule 1 4 12/21/19 24 Discontinued Carbidopa-Levodop a 25-100 MG Oral Tablet (Sinemet) 4 12/02/19 24 Discontinued Hospital, Clinic, or Other Facility Administered Medication Ordered Dose Route Frequency Start Date End Date Status botulinum toxin type a (Botox) inj 100 UnitsIndications:Essential tremor,Spasmodic torticollis 100 Units IM ONCE 12/02/2023 12/02/2023 Ended documented as of this encounter (statuses as [...] [facility] DETECT Study: Project # [id number], Senior Hr Business Partner: Ihsan Rucker, PhD. SUMMARY: Goal: Establish test [...] contact study staff at ; after hours Senior Hr Business Partner via the [facility] bullet casting operator . Please contact study team before resolving/deleting from patients problem list. Study phone number: [phone]. Diagnosis changed due to Research Module. Go to Snapshot for study details. Encounter for examination fo r normal comparison and control in clinical research program 12/26/2017 01/21/2022 Overview: DO NOT DELETE - [facility] DETECT Study: Project # [id number], Senior Hr Business Partner: Napoleon Dean, MS, MPH. SUMMARY: Goal: Establish [...] contact study staff at ; after hours Senior Hr Business Partner via the [facility] bullet casting operator . - Please contact study team before resolving/deleting from patients problem list. Study phone number: [phone]. Diagnosis changed due to Research Module. Go [...] mRNA, LNP-s, No Pre serve, 2-Dose Series ([employer]) 07/30/2020,07/09/2020 COVID-19, mRNA, LNP-s, PF, B ooster, [...] Influenza, Split, I IV3, With Preserve, Inj 01/28/2015,04/09/2014,05/14/2013,05/2012,04/19/2012,04/01/2010,04/28/20 09,03/12/2008,04/06/2007 Seasonal Influenza, Trivalen t, Adjuvanted, 65+ [...] No 06/27/2023 Does the household have a [facility] source of income? (Household - for ages [...] as of this encounter Progress Notes * Js Lopez MD - 12/02/2023 2:45 PM EDT Botox Procedure Note 12/02/2023 Patient educated on the risk and benefits of the Botox injections. Last Injection at Visit date 06/27/23 (in office), Visit date not found (telemedicine) Onset action: N/A. Adverse events: N/A. Duration in weeks: N/A. Details regarding last injection session: N/A. Normal BAIRON Scan. Sinemet did not work at all. Current Outpatient Medications Medication Sig Dispense Refill [...] by mouth daily as needed for Constipation. Txiqmmj-Hkubnag-Fluqti Jaskaran 1.2-5.7-6.3 % External Patch Apply 1 [...] into a large muscle every 4 weeks. Famotidine 20 MG Oral Tablet (Pepcid) TAKE 1 TABLET BY MOUTH TWICE A DAY 180 Tablet 3 Omeprazole 20 MG Oral Capsule Delayed Release (PriLOSEC) TAKE 1 CAP BY MOUTH DAILY. 1 HOUR BEFORE THE FIRST MEAL OF THE DAY 90 Capsule 3 Rosuvastatin Calcium 20 MG Oral Tablet (Crestor) TAKE 1 TABLET BY MOUTH EVERY DAY IN THE MORNING 90Tablet 3 oxygen IN GAS Administer 2 L/min(Oxygen) into nostril at bedtime. Levothyroxine Sodium 50 MCG Oral Tablet (Levoxyl) TAKE 1 TABLET BY MOUTH IN THE MORNING. (AT LEAST 30 MIN PRIOR TO BREAKFAST OR OTHER MEDS). 90 Tablet 3 Dicyclomine HCl 10 MG Oral Capsule (Bentyl) TAKE 1 CAPSULE BY MOUTH TWICE A DAY IF NEEDED FOR LOWERABDOMINAL PAIN 180 Capsule 1 Linzess 145 MCG Oral Capsule (linaCLOtide) TAKE 1 CAPSULE BY MOUTH EVERY DAY BEFORE BREAKFAST 90 Capsule 1 Primidone 50 MG Oral Tablet (Mysoline) TAKE 2 TABLETS BY MOUTH IN THE AM, 2 TABLETS IN THE AFTERNOON AND 3 TABLETS AT BEDTIME 630 Tablet 3 Raloxifene HCl 60 MG Oral Tablet (Evista) TAKE 1 TABLET BY MOUTH EVERYDAY AT BEDTIME 90 Tablet 3 Metamucil Fiber Oral Tablet Chewable Take by mouth. Carbidopa-Levodopa 25-100 MG Oral Tablet (Sinemet) Estradiol 0.1 MG/GM Vaginal Cream (Estrace) USE 1/2 APPLICATORFUL INTO VAGINA 2X A WEEK 42.5 g 1 clonazePAM 1 MG Oral Tablet (KlonoPIN) TAKE 1 TABLET BY MOUTH THREE TIMES A DAY 90 Tablet 2 No current facility-administered medications for this visit. EXAM Abnormal movement/function type: clear retropulsion, some R LC and some L TC. Moderate to severe neck tremor also irregular. PROCEDURE Botulinum toxin injection type used: Botox Personally, injected the patient with botulinum toxin after informed consent and sterile alcohol preparation. B/l splenius R15U, L15U total of 30 U R SCM 15 U R semispinalis 30 U, R trap 25 Amount of IM botulinum toxin used: 100. Amount of botulinum toxin discarded (not medically necessary): 0. Total: 100. The patient tolerated the procedure well and there were no complications. Hemostasis was observed at clinic discharge. Phone call in 1 month and schedule in 3 months. Patient understands that to see a clear benefit it will take at least tree visit procedures. This is not a cure and only a symptomatic treatment. Spasmodic torticollis (Primary)/ Essential tremor/ Parkinsonian features - CHEMODENERVATION OF NECK MUSCLE - botulinum toxin type a (Botox) inj 100 Units - Carbidopa-Levodopa 25-100 MG Oral Tablet (Sinemet); Add 1/2 tab one dose at a time, every 3 days,up to 2 tabs 3 times day documented in this encounter Plan of Treatment Upcoming Encounters Date Type Department Care Team (Late st Contact Info) Description 01/17/2024 10:00 AM EDT Scheduled Telephone Neurology [address] [place] [phone] Paradise Winchester LPN [address] [place] [place] [address] 02/20/2024 2:00 PM EDT Imaging Radiology, [address] [place] [address] 03/12/2024 11:30 AM EDT Office Visit Neurology [address] [place] [phone] Js Lopez MD [address] [place] [address] 04/09/2024 2:00 PM EST Office Visit General Internal Medicine [facility] [place] [address] [place] [address] López Edward MD [address] [place] [address] 06/14/2024 1:30 PM EST Telemedicine [facility], [address] [place] [phone] Noemi Raymundo, RDN [address] [place] [address] Scheduled Orders Name Type Priority Associated Diagnoses Orde r Schedule CHEMODENERVATION OF NECK MUSCLE Procedures Routine Essential tremor Spasmodic torticollis Ordered: 12/02/2023 Scheduled Procedures Name Priority Associated Diagnoses Date/Ti [...] D LEVEL ONCE IN A LIFETIME-USE SMARTSET# 32396 Completed 01/23/2020, 02/08/2017, 11/18/2015, Additional history exists [...] this encounter Medical Devices Implanted Type Area Consulting Nurse Device Identifier Shelf Expiration Date Model / Serial / Lot [employer], Embosphere, 100-300 Units Implanted:Qty: 1 on 05/21/2019 by Kadeem Ware MD [place] [facility] [place]: Head [employer] 12/20/2021 S220GH / [id number] / [id number] Inc, Bare Belkofski, Axium Prime, Detachable Coil System,[id number] Implanted:Qty: 1 on 05/21/2019 by Kadeem Ware MD [place] [facility] [place]: Head [employer] 10/02/2021 APB-1-2-HX -ES / APB-1-2-HX -ES / [id number] Inc, Bare Belkofski, Axium Prime, Detachable Coil System,[id number] Implanted:Qty: 1 on 05/21/2019 by Kadeem Ware MD [place] [facility] [place]: Head [employer] 03/06/2021 APB-1-3-HX -ES / APB-1-3-HX -ES / [id number] documented as of this encounter Visit Diagnoses Diagnosis Spasmodic torticollis- Primary Essential tremor Essential and other specified forms of tremor Parkinsonian features Abnormal involuntary movements documented in this encounter Administered Medications Inactive Administered Medications - up to 3 most recent administrations Medication Order MAR Action Action Date Dose Rate Site botulinum toxin type a (Botox) inj 100 Units 100 Units, Intramuscular, ONCE, On Tue12/02/23 at 1530, For 1 dose, Prior to injection, reconstitute botox vial with PF sodium chloride 0.9% to desired concentration. Given 12/02/2023 2:55 PM EDT 100 Units Other-Specify documented in this encounter Advance Directives * Full Code (Latest Code Status on File) Date Activated Date Inactivated Comments 05/19/2019 8:38 AM 05/28/2019 7:54 PM This order r eflects the patients wishes and were consensually agreed upon. Care Teams Padded Products Finisher Relationship Specialty Start Date End Date López Edward MD [address] [facility], [place] [phone] PCP - General Internal Medicine 07/14/18 documented as of this encounter
--- OUTSIDE RECORDS SUMMARY | 2024-02-26 03:36 | External Medical Summary | Summary of Care ---
Author Name Unknown Organization [facility] Address [address] [facility] [place] [address] Phone [phone] Care Team Providers Care Traffic Chief Name Role Phone López Edward MD Primary Care Provider + Reason for Visit * Reason Comments Medical Nutrition Therapy Follow Up Encounter Details Date Type Department Care Team (Late st Contact Info) Description 12/20/2023 2:30 PM EDT Telemedicine Dominick [facility] [address] [place] [id number] Noemi Raymundo, ARMANI [address] [place] [phone] Poor appetite*; BMI less than 19,adult; Irritable bowel syndrome with constipation Allergies Active Allergy Reactions Criticality Noted Date [...] as of this encounter (statuses as of 12/20/2023) Medications Medication Sig Dispensed Refills Start Date [...] mouth daily as needed for Constipation. Active Tweihej-Bcneidy-Zij hyl Jaskaran 1.2-5.7-6.3 % External Patch Apply [...] large muscle every 4 weeks. 03/16/2022 Active Omeprazole 20 MG Oral Capsule Delayed Release (PriLOSEC)Indicatio ns:Gastroesophageal reflux disease without esophagitis TAKE 1 CAP BY MOUTH DAILY. 1 HOUR BEFORE THE FIRST MEAL OF THE DAY 90 Capsule 3 01/31/2023 Active Rosuvastatin Calcium 20 MG Oral Tablet [...] OTHER MEDS). 90 Tablet 3 05/25/2023 Active Dicyclomine HCl 10 MG Oral Capsule (Bentyl) TAKE 1 CAPSULE BY MOUTH TWICE A DAY IF NEEDED FOR LOWER ABDOMINAL PAIN 180 Capsule 1 07/25/2023 Active Linzess 145 MCG Oral Capsule (linaCLOtide) [...] A DAY 90 Tablet 2 10/24/2023 Active Carbidopa-Levodopa 25-100 MG Oral Tablet (Sinemet)Indication s:Essential tremor,Spasmodic torticollis,Jose onian features Add 1/2 tab one dose at a time, every 3 days, up to 2 tabs 3 times day 180 Tablet 6 12/02/2023 Active Famotidine 20 MG Oral Tablet (Pepcid)Indications :GERD (gastroesophageal reflux disease) TAKE 1 TABLET BY MOUTH TWICE A DAY 180 Tablet 3 12/05/2023 Active documented as of this encounter (statuses as of 12/20/2023) Active Problems Problem Noted Date Diagnosed Date [...] as of this encounter (statuses as of 12/20/2023) Resolved Problems Problem Noted Date Diagnosed Date [...] program 12/26/2017 12/24/2019 Overview: DO NOT DELETE [facility] DETECT Study: Project # [id number], School Bus Driver/Custodian: Ihsan Rucker, PhD. SUMMARY: Goal: Establish test [...] contact study staff at ; after hours School Bus Driver/Custodian via the [facility] hospital stitch bonding machine operator . Please contact study team before resolving/deleting from patients problem list. Study phone number: [phone]. Diagnosis changed due to Research Module. Go to Snapshot for study details. Encounter for examination fo r normal comparison and control in clinical research program 12/26/2017 01/21/2022 Overview: DO NOT DELETE - [facility]ARR[facility] Study: Project # [id number], School Bus Driver/Custodian: Napoleon Dean, MS, MPH. SUMMARY: Goal: Establish [...] contact study staff at ; after hours School Bus Driver/Custodian via the [facility] hospital stitch bonding machine operator . - Please contact study team before resolving/deleting from patients problem list. Study phone number: [phone]. Diagnosis changed due to Research Module. Go [...] as of this encounter (statuses as of 12/20/2023) Immunizations Name Administration Dates Next Due 01/24/2014,11/08/2013 04/29/2014 COVID-19 mRNA, LNP-s, No Pre serve, 2-Dose Series ([employer]) 07/30/2020,07/09/2020 COVID-19, mRNA, LNP-s, PF, B ooster, [...] No 05/19/2019 documented as of this encounter Patient Instructions * Patient Instructions* Noemi Raymundo, ARMANI - 12/20/2023 3:56 PM EDT Patient will continue with present meal regimen and intake of Ensure at least 1 serving daily most days of the week. documented in this encounter Progress Notes * Noemi Raymundo RDN - 12/20/2023 2:31 PM EDT NUTRITION FOLLOW-UP NOTE - OUTPATIENT [facility] Name: Sirisha Patterson Location: [facility] Date: 12/20/2023 Time: 2:31 PM Patient was identified by name and date. After connecting to the patient via telephone, the patient was identified by name and date of . Patient was then informed that this was a telephone call only visit. The patient agreed to participate. Visit Disposition: Routine follow-up Total call duration was 33 minutes. Reason for Nutrition Follow-up: Loss of weight NUTRITION ASSESSMENT: Client History Patient is a 73 year old female being seen for above issue. States she was evaluated for Parkinson's recently-this was negative. Support System: son Barriers to Learning: Impaired vision Special Education Needs: Large print Physical Activity: Limited due to tremors Food/Nutrition-Related History Describes typical diet history/24 hr recall Breakfast: cinnamon raisin bread with PB, total cereal or special K or oatmeal with 2% milk, coffeewith milk and Splenda Snacks: none Lunch: ~1-2 PM PBJ sandwich, milk, sometimes 1/2 bottle of Ensure Snacks: sometimes 1-2 cookies or donuts Dinner: beef barley or chicken noodle soup or PBJ or turkey sandwich with littlejohn or Ensure Snacks: sometimes cookies or 1/2 bottle of Ensure Drinks: water, Ensure-unknown Restaurant meals: rare Food and Nutrient Intake and other pertinent information: Patient continues to express concern overher weight, but states she cannot eat more than she is currently. States she holds off to take Linzess until between lunch and dinner (waits 3 hours before eating after taking Linzess). She consumes only 1/2 bottle of Ensure at a time-these times vary. She notes increasing difficulty taking a shower due to her tremors. States her dentures are not fitting well; notes she has a dental appointment scheduled in January. She and her son continue to order her groceries online through [employer]-they are delivery to her residence. Medications Changes/Updates: addition of Sinemet. Taking dicyclomine PRN. Nutrition-Focused Physical Findings Deferred due to telephonic visit Anthropometric Measurements Current Weight: Wt Readings from Last 1 Encounters: 12/06/23 45.2 kg (99 lb 9.6 oz) Wt Readings from Last 4 Encounters: 12/06/23 45.2 kg (99 lb 9.6 oz) 11/22/23 44.9 kg (98 lb 14.4 oz) 09/26/23 45.8 kg (101 lb) 09/14/23 45 kg (99 lb 4.8 oz) Weight Change: stable BMI Readings from Last 1 Encounters: 12/06/23 18.82 kg/m Biochemical Data, Medical Tests, and Procedures Latest Reference Range & Units 09/14/23 14:39 Albumin 3.8 - 5.0 g/dL 4.3 AST 10 - 35 U/L 43 (H) ALT 10 - 35 U/L 51 (H) Alkaline Phosphatase 35 - 130 U/L 46 Bilirubin, Total <=1.2 mg/dL 0.2 (H): Data is abnormally high Latest Reference Range & Units 09/14/23 14:39 WBC 4.00 - 10.80 K/uL 4.88 RBC 3.85 - 5.15 M/uL 3.80 HGB 12.0 - 15.3 g/dL 11.6 (L) HCT 36.0 - 45.2 % 36.3 MCV 81.5 - 97.5 fL 95.5 MCH 27.0 - 34.0 pg 30.5 MCHC 32.0 - 36.0 g/dL 32.0 RDW 11.5 - 15.5 % 12.1 PLT 140 - 400 K/uL 285 MPV 6.6 - 11.1 fL 9.6 (L): Data is abnormally low Above levels noted. Previous Nutrition Diagnosis: Food and nutrition-related knowledge deficit related to Inadequate fiber intake, Inadequate fruit and vegetable intake, limited intake of variety of foods from different food groups and history of poor appetite as evidenced by Reported diet recall Progress towards goals: Patient will continue with present meal regimen and intake of Ensure at least 1 serving daily most days of the week. MET CURRENT NUTRITION DIAGNOSIS Underweight related to limited oral intake and early satiety as evidenced by Reported diet and/or activity recall, BMI of 18.82 NUTRITION INTERVENTION: NUTRITION EDUCATION Initial/brief nutrition education NUTRITION COUNSELING Strategies Nutrition Prescription: Diet: Good Nutrition High calorie/High protein Daily Calorie Needs: 1600 Kcals Daily Protein Needs: 65 Grams protein Current Goals: Patient will continue with present meal regimen and intake of Ensure at least 1 serving daily most days of the week. Dietitian Action: Encouraged patient to continue meal regimen. Encouraged her to choose high-calorie fluids. (She is uncertain how much she is drinking.) encouraged her to try whole milk in her coffee instead of 2% milk. Encouraged her to use sugar in coffee for additional calories instead of Splenda. States she was using Splenda because consuming too much sugar isn't "healthy". Discussed with her that maximum energy intake is highest priority right now. Encouraged her to discuss issue related to showering difficulty due to tremors with her PCP. She provides excuses for why she doesn't need to do that. Again, strongly encouraged her to discuss any physical issues she has with her PCP. Reminded her of upcoming PCP appointment on April 09. Recommendations to Ordering Provider: Continue current plan of nutrition care. NUTRITION MONITORING AND EVALUATION: The following will be monitored and evaluated at the next visit: Monitor weight. Monitor goals and progress. Plan: Patient scheduled to return in 6 months. 30 minutes Medical Nutrition Therapy Time In: 1431 (12/20/23 1431) Time Out: 1504 (12/20/23 1601) 15 min (8-22 min) 30 min (23-37 min) 45 min (38-52 min) 60 min (53-67 min) 75 min (68-82 min) 90 min (83-97 min) 105 min (98-113 min) Noemi Raymundo [facility] documented in this encounter Plan of Treatment Upcoming Encounters Date Type Department Care Team (Late st Contact Info) Description 01/17/2024 10:00 AM EDT Scheduled Telephone Neurology [address] [place] [address] Paradise Winchester LPN [address] [place] [address] 02/20/2024 2:00 PM EDT Imaging Radiology, [place] [id number] [facility] [place] [address] 03/12/2024 11:30 AM EDT Office Visit Neurology [address] [place] [address] Js Lopez MD [address] [place] [address] 04/09/2024 2:00 PM EST Office Visit General Internal Medicine [facility] [address] [place] [address] López Edward MD [address] [place] [address] 06/14/2024 1:30 PM EST Telemedicine [facility], [facility] [address] [place] [address] Noemi Raymundo, ARMANI [address] [place] [address] Scheduled Procedures Name Priority Associated Diagnoses Date/Ti [...] Vaccine ( season) 2023 05/22/2021, 07/30/2020, 07/09/2020 *CXR OR CT FOR COPD EVER 12/04/2023 Influenza Vaccine (FLU shot) (#1) 2024 03/14/2023, [...] Vaccine: 65+ Years Completed 09/01/2015, 06/04/2014, 04/06/2007 Hepatitis C Screening Completed 11/30/2016 VITAMIN D LEVEL ONCE IN A LIFETIME-USE SMARTSET# [id number] Completed 01/23/2020, 02/08/2017, 11/18/2015, Additional history exists [...] this encounter Medical Devices Implanted Type Area Senior Database Engineer Device Identifier Shelf Expiration Date Model / Serial / Lot [employer], Embosphere, 100-300 Units Implanted:Qty: 1 on 05/21/2019 by Kadeem Ware MD at OR [facility] N/A: Head [employer] 12/20/2021 [id number] / [id number] / [id number] [employer], Bare [place], Axium Prime, Detachable Coil System,[id number] Implanted:Qty: 1 on 05/21/2019 by Kadeem Ware MD at OR [facility] N/A: Head [employer] 10/02/2021 APB-1-2-HX -ES / APB-1-2-HX -ES / [id number] [id number], Bare [place], Axium Prime, Detachable Coil System,[id number] Implanted:Qty: 1 on 05/21/2019 by Kadeem Ware MD at OR [facility] N/A: Head [employer] 03/06/2021 APB-1-3-HX -ES / APB-1-3-HX -ES / [id number] documented as of this encounter Visit Diagnoses Diagnosis Poor appetite- Primary Anorexia BMI less than 19,adult Body Mass Index less than 19, adult Irritable bowel syndrome with constipation Irritable bowel syndrome documented in this encounter Advance Directives * Full Code (Latest Code Status on File) Date Activated Date Inactivated Comments 05/19/2019 8:38 AM 05/28/2019 7:54 PM This order r eflects the patients wishes and were consensually agreed upon. Care Teams Traffic Chief Relationship Specialty Start Date End Date López Edward MD [address] [place] [address] PCP - General Internal Medicine 07/14/18 documented as of this encounter
--- OUTSIDE RECORDS SUMMARY | 2024-02-26 03:36 | External Medical Summary | Summary of Care ---
Author Name Unknown Organization [facility] Address [address] [place] [address] Phone [phone] Care Team Providers Care Morgue Technician Name Role Phone López Edward MD Primary Care Provider + Reason for Referral * Evaluate & Treat - Unlimited Visits (Within 10 days (routine)) - Authorized Specialty Diagnoses / Procedures Referred By Shae matamoros Referred To Contact General Surgery - Breast Surgery / Surgical Oncology Diagnoses Mass of right breast, unspecified quadrant Loss of weight López Edwrad MD [facility] [address] [place] [address] Referral ID Status Reason Start Date Expiration Date Visits Requested Visits Authorized [id number] Authorized Specialty Services Required 11/22/2023 999 999 Question Answer Referral Priority Within 10 days (routine) Where should this appointment be scheduled? [facility] Is there suspicion that patient has Breast Cancer? Yes Does the patient have 1st degree relative with history of breast cancer? No Comments Right breast lump on CT, mammo ok, exam ok Reason for Visit * Reason Comments Acute Pt presents for a fo llow up from mammogram. Pt denied feeling any lump Encounter Details Date Type Department Care Team (Late st Contact Info) Description 11/22/2023 1:40 PM EDT Office Visit General Internal Medicine [address] [place] [address] López Edward MD [address] [place] [id number] Mass of right breast, unspecified quadrant*; Loss of weight Allergies Active Allergy Reactions Criticality Noted Date [...] as of this encounter (statuses as of 11/22/2023) Medications Medication Sig Dispensed Refills Start Date [...] mouth daily as needed for Constipation. Active Tnizxfb-Rdaswet-Ji thyl Jaskaran 1.2-5.7-6.3 % External Patch Apply [...] large muscle every 4 weeks. 2 Active Famotidine 20 MG Oral Tablet (Pepcid)Indication s:GERD (gastroesophageal reflux disease) TAKE 1 TABLET BY MOUTH TWICE A DAY 180 Tablet 3 3 Active Omeprazole 20 MG Oral Capsule Delayed Release (PriLOSEC)Indicati ons:Gastroesophage al reflux disease without esophagitis TAKE 1 CAP BY MOUTH DAILY. 1 HOUR BEFORE THE FIRST MEAL OF THE DAY 90 Capsule 3 3 Active Rosuvastatin Calcium 20 MG Oral Tablet [...] OTHER MEDS). 90 Tablet 3 4 Active Dicyclomine HCl 10 MG Oral Capsule (Bentyl) TAKE 1 CAPSULE BY MOUTH TWICE A DAY IF NEEDED FOR LOWER ABDOMINAL PAIN 180 Capsule 1 4 Active Linzess 145 MCG Oral Capsule [...] Oral Tablet Chewable Take by mouth. Active Carbidopa-Levodopa 25-100 MG Oral Tablet (Sinemet) 4 Active Estradiol 0.1 MG/GM Vaginal Cream (Estrace) USE 1/2 APPLICATORFUL INTO VAGINA 2X A WEEK 42.5 g 1 4 Active clonazePAM 1 MG Oral Tablet (KlonoPIN)Indicati ons:Essential tremor TAKE 1 TABLET BY MOUTH THREE TIMES A DAY 90 Tablet 2 4 Active Cefdinir 300 MG Oral Capsule (Omnicef)Indicatio ns:Recurrent UTI Take 1 Capsule by mouth in the morning and 1 Capsule before bedtime. Do all this for 7 days. 14 Capsule 4 11/22/19 24 Discontinu ed(Patient preference /discontin uation) documented as of this encounter (statuses as of 11/22/2023) Active Problems Problem Noted Date Diagnosed Date [...] as of this encounter (statuses as of 11/22/2023) Resolved Problems Problem Noted Date Diagnosed Date [...] program 12/26/2017 12/24/2019 Overview: DO NOT DELETE Jaydon Modbook BARRY Study: Project # [id number], Naphthalene Operator: Ihsan Rucker, PhD. SUMMARY: Goal: Establish test [...] contact study staff at ; after hours Naphthalene Operator via the [facility] wire turning machine operator . Please contact study team before resolving/deleting from patients problem list. Study phone number: [phone]. Diagnosis changed due to Research Module. Go to Snapshot for study details. Encounter for examination fo r normal comparison and control in clinical research program 12/26/2017 01/21/2022 Overview: DO NOT DELETE - Jaydon Kirkpatrick DETECT Study: Project # [id number], Naphthalene Operator: Napoleon Dean, MS, MPH. SUMMARY: Goal: Establish [...] contact study staff at ; after hours Naphthalene Operator via the [facility] wire turning machine operator . - Please contact study team before resolving/deleting from patients problem list. Study phone number: [phone]. Diagnosis changed due to Research Module. Go [...] as of this encounter (statuses as of 11/22/2023) Immunizations Name Administration Dates Next Due 01/24/2014,11/08/2013 04/29/2014 COVID-19 mRNA, LNP-s, No Pre serve, 2-Dose Series ([employer]) 07/30/2020,07/09/2020 COVID-19, mRNA, LNP-s, PF, B ooster, [...] 0 05/23/1981 - 05/23/2011 Smokeless Tobacco: Never Tobacco Cessation:Counseling Given: Not Answered Alcohol Use Standard Drinks/Week Comments Not Currently [...] Sign Reading Time Taken Comments Blood Pressure 106/60 11/22/2023 1:38 PM EDT Pulse 79 11/22/2023 1:38 PM EDT Temperature 37.1 C (98.7 F) 11/22/2023 1:38 PM ED T Respiratory Rate - - Oxygen Saturation 97% 11/22/2023 1:38 PM EDT Inhaled Oxygen Concentration - - Weight 44.9 kg (98 lb 14.4 oz) 11/22/2023 1:38 P M EDT Height 154.9 cm (5' 1") 11/22/2023 1:38 PM EDT Body Mass Index 18.69 11/22/2023 1:38 PM EDT documented in this [...] as of this encounter Progress Notes * López Edward MD - 11/22/2023 1:52 PM EDT Chief Complaint Patient presents with Acute Pt presents for a follow up from mammogram. Pt denied feeling any lump SUBJECTIVE: Sirisha Patterson is a 73 year old female with PMH as below who presents for acute. Had lung cancerscreen CT, showed possible right breast mass, mammo was ok, told "normal tissue" when she went she notices no lump or discharge nor breast pain Patient Active Problem List Diagnosis Hypothyroidism due to acquired atrophy of thyroid GERD (gastroesophageal reflux disease) Orthostatic hypotension CTS (carpal tunnel syndrome) Esophageal dysmotility Thoracic aortic ectasia (HCC) High risk for fracture due to osteoporosis by DEXA scan Ectopic atrial tachycardia (HCC) Action tremor Irritable bowel syndrome with constipation Spasmodic torticollis COPD, group B, by GOLD 2017 classification ([facility]) History of subdural hematoma Mild mitral regurgitation Diastolic dysfunction Schizoaffective disorder, bipolar type (HCC) Affective psychosis, bipolar (HCC) Delusional disorder ([facility]) Moderate protein-calorie malnutrition (HCC) Dyslipidemia, goal LDL [...] by mouth daily as needed for Constipation. Kvbemjt-Yakgamp-Lbgwfd Jaskaran 1.2-5.7-6.3 % External Patch Apply 1 [...] TO FACE AREA NEEDED 45 g 1 Paliperidone Palmitate ER 78 MG/0.5ML Intramuscular [...] THREE TIMES A DAY 90 Tablet 2 Zoster Vac Recomb Adjuvanted 50 MCG/0.5ML Intramuscular Suspension Reconstituted (Shingrix) Inject 0.5 mL into a large muscle now and repeat dose in 60 to 180 days (Patient not taking: Reported on 06/27/2023) 1 Each 1 No current facility-administered medications for this visit. Review of patient's allergies indicates: Allergen Reactions [...] Other reaction(s): rash Nickel Other reaction(s): Rash Health Maintenance Due Topic Date Due Zoster Vaccines (1 of 2) Never done DXA Scan 08/05/2021 COVID-19 Vaccine ( season) 2023 ROS: CONSTITUTIONAL: No fevers, sweats, or chills BREASTS: No new breast lumps or masses, No severe breast pain, No nipple discharge, No recent change in shape/color, and Performs self breast exam ALL OTHER SYSTEMS NEGATIVE I reviewed social, PMH, PSH, and family history and updated where needed. Social History Socioeconomic History Marital status: Spouse name: Not on file Number of children: 2 Years of education: Not on file Highest education level: Not on file Occupational History Occupation: disability for psychiatric reasons and tremors Tobacco Use Smoking status: Former Current packs/day: 0.00 Average packs/day: 1 pack/day for 30.0 years (30.0 ttl pk-yrs) Types: Cigarettes Start date: 05/23/1981 Quit date: 05/23/2011 Years since quittin.5 Smokeless tobacco: Never Vaping Use Vaping status: Never Used Substance and Sexual Activity Alcohol use: Not Currently Comment: rare Drug use: Never Sexual activity: Not Currently Partners: Male Other Topics Concern Service No Blood Transfusions No Caffeine Concern No Occupational Exposure No Hobby Hazards No Sleep Concern No Stress Concern No Weight Concern No Special Diet No Back Care No Exercise Yes Bike Helmet Not Asked Seat Belt Yes Self-Exams Yes Social History Narrative No pets. No mold. Merged History Encounter Born and raised in [place], moved to [facility] [place]. and lives alone. Has 3 children [...] for ages 18 years and over): No Does your family have trouble paying for medicine? (Household - for ages 0-17 years): Not on file Food Insecurity: No Food Insecurity (06/27/2023) Food Insecurity Do you need food for this week? (Adult - for ages 18 years and over): No Are you able to get enough food for your family? (Household - for ages 0-17 years): Not on file Does your family need food this week? (Household - for ages 0-17 years): Not on file Do you always have enough food for your family? (Household - for ages 0-17 years): Not on file Transportation Needs: Unmet Transportation Needs (06/27/2023) Transportation Needs Do you have trouble getting a ride to medical visits or work? (Adult - for ages 18 years and over):Sometimes True Does your family have a hard time getting a ride to doctors visits? (Household - for ages 0-17 years): Not on file Has lack of transportation kept you from medical appointments, meetings, work, or from getting things needed for daily living? Check all that apply. (Adult - for ages 18 years and over): Not on file Do you (or your family) have trouble finding or paying for a ride (transportation)? (Household - for ages 0-17 years): Not on file Social Connections: Socially Integrated (06/27/2023) Social Connections How often do you feel lonely or isolated from those around you? (Adult - for ages 18 years and over): Sometimes Housing Stability: Low Risk (06/27/2023) Housing Stability Do you currently live in a correction or have no steady place to sleep at night? (Adult - for ages 18 years and over): No Do you think you are at risk of becoming homeless? (Adult - for ages 18 years and over): No Does your family worry about paying for your home or becoming homeless? (Household - for ages 0-17 years): Not on file Are you homeless or worried that you might be in the future? (Adult - for ages 18 years and over): Not on file Are you (or your family) homeless or worried that you might be in the future? (Household - for ages0-17 years): Not on file Past Medical History: Diagnosis Date Abnormal involuntary movement 04/08/2006 paternal family history of tremors and Parkinsons Acquired hypothyroidism 08/17/2020 Adrenal insufficiency (HCC) 10/15/2016 Bipolar disorder (HCC) COPD (chronic obstructive pulmonary disease) ([facility]) Depressive disorder, not elsewhere classified Dr Fonseca and Sandy Fuentes Diastolic dysfunction 08/05/2020 GERD (gastroesophageal reflux disease) Heart failure ([facility]) High risk for fracture due to osteoporosis by DEXA scan 02/23/2017 Hypothyroidism 01/23/2013 INFORMATION Basal ganglia neuroma Lung nodule Mild mitral regurgitation 08/05/2020 Other osteoporosis Other specified acquired hypothyroidism Peripheral neuropathy PTSD (post-traumatic stress disorder) 11/23/2011 S/P coil embolization of cerebral aneurysm 05/21/2019 right middle meningeal artery frontal and parietal branches Spasmodic torticollis 03/29/2019 Tachycardia atrial Tobacco use disorder Past Surgical History: Procedure Laterality Date CATARACT SURGERY,COMPLEX Left 12/04/2015 Mar CATARACT SURGERY,COMPLEX Right 11/2016 COLONOSCOPY 04/18/2006 normal repeat 2010 COLONOSCOPY, DIAGNOSTIC (RECTUM) 05/02/1997 improper prep. COLONOSCOPY, DIAGNOSTIC (RECTUM) 08/08/2013 COLONOSCOPY FLEXIBLE PROXIMAL DIAGNOSTIC performed by David Cotton MD at [facility] COLONOSCOPY, DIAGNOSTIC (RECTUM) 02/04/2015 benign polyp, repeat 5 yrs/COLONOSCOPY FLEXIBLE PROXIMAL DIAGNOSTIC performed by David Cotton MD at [facility] COLONOSCOPY, DIAGNOSTIC (RECTUM) N/A 03/25/2021 non-bleeding internal hemorrhoids/recall 5 years/[place] CORONARY ANGIOGRAPHY W/LEFT HEART CATH N/A 07/10/2014 CORONARY ANGIOGRAPHY W/LEFT HEART CATH performed by Celeste Madrid MD at [facility] CYSTOSCOPY 05/14/2008 CYSTOSCOPY 12/16/2014 CYSTOSCOPY 05/29/2018 done in office- Dr Bob DILATION AND CURETTAGE (D&C) D&C EGD, FLEXIBLE, DIAGNOSTIC 08/08/2013 ESOPHAGOGASTRODUODENOSCOPY (EGD), FLEXIBLE, TRANSORAL, DIAGNOSTIC performed by David Cotton MD at [facility] EGD, FLEXIBLE, DIAGNOSTIC 02/04/2015 normal bx/ESOPHAGOGASTRODUODENOSCOPY (EGD), FLEXIBLE, TRANSORAL, DIAGNOSTIC performed by David Cotton MD at [facility] EGD, FLEXIBLE, DIAGNOSTIC 01/07/2022 normal bx / [facility] EGD, FLEXIBLE, DIAGNOSTIC N/A 03/25/2021 small hiatal hernia/esophagus dilated/EGD/[place] EYELID SURGERY PROCEDURE NEC 2018 left eye-removed scar tissue LIGATE/CUT OVIDUCT(S) MAMMOGRAM - BILATERAL 12/11/2003 Mammogram,Both Breast birad code 2 done 07/31/01 MAMMOGRAM - BILATERAL 03/24/2005 birad code 2 MAMMOGRAM SCREENING-BILATERAL 01/12/2007 birad 2 MAMMOGRAM SCREENING-BILATERAL 01/15/2008 birad code [address] CATHETER IN ARTERIES N/A 05/21/2019 CATHETER PLACEMENT, BRACHIOCEPHALIC, THIRD ORDER BRANCH performed by Kadeem Ware MD at [facility] ND LAP,CHOLECYSTECTOMY 11/20/2022 REMOVAL OF APPENDIX REMOVE TONSILS & ADENOIDS, UNDER 12 REVISION OF UTERUS 1993 fibroid removed SURGICAL REMOVAL, ERUPTED TOOTH AND BONE Family History Problem Relation Name Age of Onset Melanoma Mother Hypertension Mother Thyroid Disorder Mother Colon cancer Mother age 83 Heart Disorder Father CABG age 50; age 85 Cancer Sister Josy Gooden Anal cancer with mets Colon cancer Sister Rahel Rectal No Known Problems Sister Maribeth No Known Problems Sister Nichol Other (Fibromyalgia) Sister Sheryl Other (carpal tunnel) Sister Sheryl Other (rods in his spine) Brother Ra No Known Problems Brother Giovanny No Known Problems Brother Ray No Known Problems Brother Juno Endocrine Disorder Grandmother (Maternal) Neurological Disorder Grandmother (Paternal) movement disorder Cancer Grandfather (Paternal) Cancer Aunt (Unspecified) maternal Cancer Uncle (Unspecified) Theodure Neurological Disorder Uncle (Unspecified) paternal parkinson disease/parkinson disease Cancer Uncle (Unspecified) Anupam maternal-stomach ca Parkinsonism Aunt (Paternal) Eye Problems No significant family history denies fm: glaucoma, blindness, AMD, RD Breast Cancer No significant family history OBJECTIVE: PHYSICAL EXAM: BP 106/60 | Pulse 79 | Temp 37.1 C (98.7 F) (Tympanic) | Ht 1.549 m (5' 1") | Wt 44.9 kg (98 lb14.4 oz) | SpO2 97% | BMI 18.69 kg/m | BSA 1.39 m General: alert, healthy, and no distress Head: Normocephalic, No masses, lesions, or abnormalities Breasts: right side: Inspection negative, No nipple retraction or dimpling, No nipple discharge or bleeding, No axillary adenopathy, Normal to palpation without dominant masses 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 10/26/23 ct: Positive. Indeterminate right 2.1 cm breast mass. Diagnostic mammogram is recommended for further evaluation. 3. Incidental findings as above. Mammo dx 11/08/23: There are scattered areas of fibroglandular density. There is no evidence of suspicious masses, calcifications, or other abnormal findings. There is no abnormality to correspond to the questioned finding on CT 10/26/2023. There is generalized increased density of both breasts and increase in the trabecular markings which may be due to interval weight loss. ASSESSMENT: N63.10 Mass of right breast, unspecified quadrant (primary encounter diagnosis) R63.4 Loss of weight PLAN: Mass of right breast, unspecified quadrant (Primary) - HIGH RISK BREAST CLINIC, BREAST SURGERY REFERRAL OP Exam ok, given ct findings, and h/o weight loss, will ask breast clinic aid to see if further work up, image needed, she agrees Loss of weight - HIGH RISK BREAST CLINIC, BREAST SURGERY REFERRAL OP Follow Up: Return if symptoms worsen or fail to improve and as scheduled.. López Edward MD documented in this encounter Nursing Notes * Marce Washburn MED ASSIST - 11/22/2023 1:41 PM EDT Chief Complaint Patient presents with Acute Pt presents for a follow up from mammogram. Pt denied feeling any lump documented in this encounter Plan of Treatment Upcoming Encounters Date Type Department Care Team (Late st Contact Info) Description 12/02/2023 3:00 PM EDT Office Visit Neurology [address] [place] [phone] Js Lopez MD [address] [facility] [place] [address] 12/20/2023 2:30 PM EDT Telemedicine [facility], [address] [place] [address] Noemi Raymundo, RDN [address] [place] [address] 02/20/2024 2:00 PM EDT Imaging Radiology, [place] [address] [facility] [place] [address] 04/09/2024 2:00 PM EST Office Visit General Internal Medicine [facility] [address] [facility] [place] [address] López Edward MD [address] [facility] [place] [address] Scheduled Procedures Name Priority Associated Diagnoses Date/Ti me COLONOSCOPY FLEXIBLE PROXIMA L DIAGNOSTIC Recall History of colonic polyps Scheduled Referrals Name Type Priority Associated Diagnoses Orde r Schedule HIGH RISK BREAST CLINIC, BREAST SURGERY REFERRAL OP Referral Within 10 days (routine) Mass of right breast, unspecified quadrant Loss of weight Ordered: 11/22/2023 Health Maintenance Due Date Last Done Comments [...] 09/13/2024 09/14/2023, 12/21, 12/23/2021, Additional history exists O2 ASSESSMENT COMPLETED IN PAST YEAR FOR COPD 09/25/2024 09/26/2023 Mammogram 11/07/2024 11/08/2023, 10/21, 12/29/2021, Additional history exists Colonoscopy 03/25/2026 03/25/2021, 07/2020, 03/25/2021, Additional history exists Colorectal Cancer Screening 03/25/2026 DTaP,Tdap,and Td Vaccines (3 - Td or Tdap) 11/24/2026 11/24/2016, 05/15/2007 Pneumococcal Vaccine: 65+ Years Completed 09/01/2015, 06/04/2014, 04/06/2007 VITAMIN D LEVEL ONCE IN A LIFETIME-USE SMARTSET# [id number] Completed 01/23/2020, 02/08/2017, 11/18/2015, Additional history exists Alpha-1 Antitrypsin Completed 08/15/2020 RETIRED - COLONOSCOPY-EVERY 5 YRS AGES 18-100 Discontinued 03/25/2021, 03/25/2021, 03/25/2021, Additional history exists Lung Cancer Screening Completed 10/26/2023 , 06/29/2021, 06/30/2020, Additional history exists GARDASIL-HPV IMMUNIZATION SERIES Aged Out No longer eligible based on patient's age to complete this topic Hepatitis B Aged Out No longer eligi ble based on patient's age to complete this topic MENINGOCOCCAL (MENACTRA/MENVEO) Aged Out No longer eligible based on patient's age to complete this topic documented as of this encounter Medical Devices Implanted Type Area Automatic Profile Shaper Operator Device Identifier Shelf Expiration Date Model / Serial / Lot [employer], Embosphere, 100-300 Units Implanted:Qty: 1 on 05/21/2019 by Kadeem Ware MD at [facility] N/A: Head [employer] 12/20/2021 [id number] / [id number] / [id number] [employer], [employer] [place], Axium Prime, Detachable Coil System,[id number] Implanted:Qty: 1 on 05/21/2019 by Kadeem Ware MD at [facility] N/A: Head [employer] 10/02/2021 APB-1-2-HX -ES / APB-1-2-HX -ES / [id number] [employer], [employer] [place], [employer] Prime, Detachable Coil System,[id number] Implanted:Qty: 1 on 05/21/2019 by Kadeem Ware MD at [facility] N/A: Head [employer] 03/06/2021 APB-1-3-HX -ES / APB-1-3-HX -ES / [id number] documented as of this encounter Visit Diagnoses Diagnosis Mass of right breast, unspecified quadrant- Primary Loss of weight documented in this encounter Advance Directives * Full Code (Latest Code Status on File) Date Activated Date Inactivated Comments 05/19/2019 8:38 AM 05/28/2019 7:54 PM This order r eflects the patients wishes and were consensually agreed upon. Care Teams Morgue Technician Relationship Specialty Start Date End Date López Edward MD [address] [place] [id number] PCP - General Internal Medicine 07/14/18 documented as of this encounter
--- OUTSIDE RECORDS SUMMARY | 2024-02-26 03:36 | External Medical Summary | Summary of Care ---
Author Name Unknown Organization [facility] Address [address] [place] [address] Phone [phone] Care Team Providers Care Locomotive Boilermaker Name Role Phone López Edward MD Primary Care Provider + Reason for Visit * Reason Comments eRx-Medication Refill Encounter Details Date Type Department Care Team (Late st Contact Info) Description 12/21/2023 Refill Gastroenterology, [facility] [address] [place] [address] Joanne Akers CRNP [address] [place] [address] Allergies Active Allergy Reactions Criticality Noted Date [...] as of this encounter (statuses as of 12/21/2023) Medications Medication Sig Dispensed Refills Start Date [...] mouth daily as needed for Constipation. Active Xtydqqs-Mlitnul-V ethyl Jaskaran 1.2-5.7-6.3 % External Patch Apply [...] large muscle every 4 weeks. 2 Active Omeprazole 20 MG Oral Capsule Delayed [...] A DAY 180 Tablet 3 4 Active Dicyclomine HCl 10 MG Oral Capsule (Bentyl) TAKE 1 CAPSULE BY MOUTH TWICE A DAY IF NEEDED FOR LOWER ABDOMINAL PAIN 180 Capsule 4 Active Dicyclomine HCl 10 MG Oral Capsule (Bentyl) TAKE 1 CAPSULE BY MOUTH TWICE A DAY IF NEEDED FOR LOWER ABDOMINAL PAIN 180 Capsule 1 4 12/21/19 24 Discontinued documented as of this encounter (statuses as of 12/21/2023) Active Problems Problem Noted Date Diagnosed Date [...] as of this encounter (statuses as of 12/21/2023) Resolved Problems Problem Noted Date Diagnosed Date [...] program 12/26/2017 12/24/2019 Overview: DO NOT DELETE [facility] DETECT Study: Project # [id number], Reflow Operator: Ihsan Rucker, PhD. SUMMARY: Goal: Establish [...] contact study staff at ; after hours Reflow Operator via the [facility] dewaterer operator . Please contact study team before resolving/deleting from patients problem list. Study phone number: [phone]. Diagnosis changed due to Research Module. Go to Snapshot for study details. Encounter for examination fo r normal comparison and control in clinical research program 12/26/2017 01/21/2022 Overview: DO NOT DELETE [facility] Study: Project # [id number], Reflow Operator: Napoleon Dean, MS, MPH. SUMMARY: Goal: [...] contact study staff at ; after hours Reflow Operator via the [facility] dewaterer operator . - Please contact study team before resolving/deleting from patients problem list. Study phone number: [phone]. Diagnosis changed due to Research Module. Go [...] as of this encounter (statuses as of 12/21/2023) Immunizations Name Administration Dates Next Due 01/24/2014,11/08/2013 04/29/2014 COVID-19 mRNA, LNP-s, No Pre serve, 2-Dose Series ([employer] [place]) 07/30/2020,07/09/2020 COVID-19, mRNA, LNP-s, PF, B ooster, [...] Influenza, Split, I IV3, With Preserve, Inj 01/28/2015,04/09/2014,05/14/2013,10/05/2012,04/19/2012,04/01/2010,04/28/20 09,03/12/2008,04/06/2007 Seasonal Influenza, Trivalen t, Adjuvanted, [...] encounter Miscellaneous Notes * Telephone Encounter - Diego Aguilera [facility] - 12/21/2023 2:56 PM EDTSigned Prescriptions: Disp Refills Dicyclomine HCl 10 MG Oral Capsule (Bentyl)180 Ca*0 Sig: TAKE 1 CAPSULE BY MOUTH TWICE A DAY IF NEEDED FOR LOWER ABDOMINAL PAINAuthorizing Provider: Modesto AKERS User: DIEGO AGUILERA * Telephone Encounter - Diego Aguilera RPh - 12/21/2023 2:54 PM EDT Authorized 90 days supply with 0 refill as patient will be due for non acute visit within the next 3 months. Last visit: 10/08/2021 (in office), 01/17/2023 (telemedicine) Next visit: Visit date not found Thank you, Diego Aguilera, PharmD Clinical Pharmacist [facility] ([facility]) [phone] 12/21/2023, 2:55 PM * Telephone Encounter - Siena Juarez - 12/21/2023 1:08 PM EDTPending Prescriptions: Disp Refills Dicyclomine HCl 10 MG Oral Capsule [Pharma*180 Ca*1 Sig: TAKE 1 CAPSULE BY MOUTH TWICE A DAY IF NEEDED FOR LOWER ABDOMINAL PAIN * Telephone Encounter - Siena Juarez - 12/21/2023 1:06 PM EDT Did you pend patient's preferred pharmacy and medication before forwarding?yes Pharmacy: [id number] [address] [place] Pending Prescriptions: Disp Refills Dicyclomine HCl 10 MG Oral Capsule (Benty*180 Ca*1 Sig: TAKE 1 CAPSULE BY MOUTH TWICE A DAY IF NEEDED FOR LOWER ABDOMINAL PAIN Last Visit: 10/08/2021 (in office), 01/17/2023 (telemedicine) Next Visit: Visit date not found If no future appointments scheduled, and last appointment is greater than a year ago, please schedule patient for a follow-up appointment Last date the medication was ordered: 07/25/2023 Is this request for a controlled substance?No Urine Drug Screen: Results for orders placed [...] [place] [phone] Paradise Winchester LPN [address] [place] [address] 02/20/2024 2:00 PM EDT Imaging Radiology, [facility] [address] [facility] [facility] [place] [address] 03/12/2024 11:30 AM EDT Office Visit Neurology [address] [phone] Js Lopez MD [address] [place], [place] [id number] 04/09/2024 2:00 PM EST Office Visit General Internal Medicine [facility] [address] [facility] [place] [address] López Edward MD [address] [facility] [place] [address] 06/14/2024 1:30 PM EST Telemedicine [facility] [address] [place] [address] Noemi Raymundo, ARMANI [address] [place] [address] Scheduled Procedures Name Priority Associated Diagnoses Date/Ti [...] D LEVEL ONCE IN A LIFETIME-USE SMARTSET# [id number] Completed 01/23/2020, 02/08/2017, 11/18/2015, Additional history exists [...] this encounter Medical Devices Implanted Type Area Supervisor Boiler Repair Device Identifier Shelf Expiration Date Model / Serial / Lot Eqvilibria Inc, Big Contacts, 100-300 Units Implanted:Qty: 1 on 05/21/2019 by Kadeem Ware MD at OR [facility] N/A: Head [employer] 12/20/2021 S220GH / [id number] / [id number] Ev3 Inc, Bare [place], Axium Prime, Detachable Coil System,[id number] Implanted:Qty: 1 on 05/21/2019 by Kadeem Ware MD at OR [facility] N/A: Head [employer] INC 10/02/2021 APB-1-2-HX -ES / APB-1-2-HX -ES / [id number] Ev3 Inc, Bare [place], Axium Prime, Detachable Coil System,[id number] Implanted:Qty: 1 on 05/21/2019 by Kadeem Ware MD at OR [facility] N/A: Head [employer] INC 03/06/2021 APB-1-3-HX -ES / APB-1-3-HX -ES / [id number] documented as of this encounter Advance Directives * Full Code (Latest Code Status on File) Date Activated Date Inactivated Comments 05/19/2019 8:38 AM 05/28/2019 7:54 PM This order r eflects the patients wishes and were consensually agreed upon. Care Teams Locomotive Boilermaker Relationship Specialty Start Date End Date López Edward MD [address] [place] [address] PCP - General Internal Medicine 07/14/18 documented as of this encounter
--- OUTSIDE RECORDS SUMMARY | 2024-02-26 03:36 | External Medical Summary | Summary of Care ---
Author Name Unknown Organization [facility] Address [address] [place] [address] Phone [phone] Care Team Providers Care Industrial Gas Servicer Name Role Phone López Edward MD Primary Care Provider + Reason for Visit * Reason Onset Date Comments Appointment 09/01/2023 Encounter Details Date Type Department Care Team (Late st Contact Info) Description 09/01/2023 Telephone General Internal Medicine [facility] [address] [place] [address] López Edward MD [address] [place] [address] Appointment Allergies Active Allergy Reactions Criticality Noted Date [...] as of this encounter (statuses as of 12/01/2023) Medications Medication Sig Dispensed Refills Start Date [...] mouth daily as needed for Constipation. Active Bkuxrlh-Rpzzwrl-Xdj hyl Jaskaran 1.2-5.7-6.3 % External Patch Apply [...] large muscle every 4 weeks. 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 SUMMARY: Goal: Establish test [...] contact study staff at ; after hours Formwork Carpenter via the [facility] hospital electroslag welding machine operator . Please contact study team before resolving/deleting from patients problem list. Study phone number: [phone]. Diagnosis changed due to Research Module. Go to Snapshot for study details. Encounter for examination fo r normal comparison and control in clinical research program 12/26/2017 01/21/2022 Overview: DO NOT DELETE - [facility] DETECT Study: Project # [id number], Formwork Carpenter: Napoleon Dean, MS, MPH. SUMMARY: Goal: Establish [...] contact study staff at ; after hours Formwork Carpenter via the [facility] hospital electroslag welding machine operator . - Please contact study team before resolving/deleting from patients problem list. Study phone number: [phone]. Diagnosis changed due to Research Module. Go [...] as of this encounter (statuses as of 12/01/2023) Immunizations Name Administration Dates Next Due 01/24/2014,11/08/2013 04/29/2014 COVID-19 mRNA, LNP-s, No Pre serve, 2-Dose Series ([employer]) 07/30/2020,07/09/2020 COVID-19, mRNA, LNP-s, PF, B ooster, [...] encounter Miscellaneous Notes * Telephone Encounter - Paty Villarreal OSA - 09/01/2023 12:30 PM EDT No Appointments Available Patient declined appointments?: Yes What Visit Type is needed? Acute If Acute Visit Type is needed, were surrounding clinics offered to patient (Yes/No)? Yes Was patient offered appointments with other available providers (Yes/No)? Yes See Call Details? (Yes or No): Yes Pt is having back pain and she is having a low grade fever and also has uti symptoms documented in this encounter Plan of Treatment Upcoming Encounters Date Type Department Care Team (Late st Contact Info) Description 12/02/2023 3:00 PM EDT Office Visit Neurology [address] [phone] Js Lopez MD [address] [facility] [place] [id number] 12/06/2023 11:30 AM EDT Office Visit General Surgery, [facility] [address] [facility] [place] [address] Yue Morales MD [address] [place] [address] 12/20/2023 2:30 PM EDT Telemedicine [facility] [address] [facility] [place] [address] Noemi Raymundo, ARMANI [address] [place] [address] 02/20/2024 2:00 PM EDT Imaging Radiology, [facility] [address] [place] [address] 04/09/2024 2:00 PM EST Office Visit General Internal Medicine [facility] 200 [place] [address] López Edward MD 200 [place] [address] Scheduled Procedures Name Priority Associated Diagnoses Date/Ti [...] D LEVEL ONCE IN A LIFETIME-USE SMARTSET# [id number] Completed 01/23/2020, 02/08/2017, 11/18/2015, Additional history exists [...] this encounter Medical Devices Implanted Type Area Thin Film Technician Device Identifier Shelf Expiration Date Model / Serial / Lot [employer], Embosphere, 100-300 Units Implanted:Qty: 1 on 05/21/2019 by Kadeem Ware MD at OR [facility] N/A: Head [employer] 12/20/2021 S220GH / S220GH / [id number] EvHepatoChem Inc, Bare [place], Axium Prime, Detachable Coil System,[id number] Implanted:Qty: 1 on 05/21/2019 by Kadeem Ware MD at OR [facility] N/A: Head [employer]3 INC 10/02/2021 APB-1-2-HX -ES / APB-1-2-HX -ES / [id number] Ev3 Inc, Bare [place], Axium Prime, Detachable Coil System,[id number] Implanted:Qty: 1 on 05/21/2019 by Kadeem Ware MD at OR [facility] N/A: Head [employer] 03/06/2021 APB-1-3-HX -ES / APB-1-3-HX -ES / [id number] documented as of this encounter Advance Directives * Full Code (Latest Code Status on File) Date Activated Date Inactivated Comments 05/19/2019 8:38 AM 05/28/2019 7:54 PM This order r eflects the patients wishes and were consensually agreed upon. Care Teams Industrial Gas Servicer Relationship Specialty Start Date End Date López Edward MD [address] [place] [address] PCP - General Internal Medicine 07/14/18 documented as of this encounter
--- OUTSIDE RECORDS SUMMARY | 2024-02-26 03:36 | External Medical Summary | Summary of Care ---
Author Name Unknown Organization [facility] Address [address] [place] [address] Phone [phone] Care Team Providers Care Street Light Servicer Helper Name Role Phone López Edward MD Primary Care Provider + Reason for Visit * Reason Comments eRx-Medication Refill Encounter Details Date Type Department Care Team (Late st Contact Info) Description 12/03/2023 Refill General Internal Medicine [facility] 200 [facility] [place] [id number] López Edward MD [address] [place] [address] GERD (gastroesophageal reflux disease) Allergies Active Allergy Reactions Criticality Noted Date [...] as of this encounter (statuses as of 12/05/2023) Medications Medication Sig Dispensed Refills Start Date [...] mouth daily as needed for Constipation. Active Ubkgsvf-Aapjwrg-T ethyl Jaskaran 1.2-5.7-6.3 % External Patch Apply [...] A DAY 180 Tablet 3 4 Active Famotidine 20 MG Oral Tablet (Pepcid)Indicatio ns:GERD (gastroesophageal reflux disease) TAKE 1 TABLET BY MOUTH TWICE A DAY 180 Tablet 3 3 12/05/19 24 Discontinued documented as of this encounter (statuses as of 12/05/2023) Active Problems Problem Noted Date Diagnosed Date [...] as of this encounter (statuses as of 12/05/2023) Resolved Problems Problem Noted Date Diagnosed Date [...] program 12/26/2017 12/24/2019 Overview: DO NOT DELETE [facility] DETECT Study: Project # [id number], Cut Press Operator: Ihsan Rucker, PhD. SUMMARY: Goal: Establish [...] contact study staff at ; after hours Cut Press Operator via the [facility] hospital dissolver operator . Please contact study team before resolving/deleting from patients problem list. Study phone number: [phone]. Diagnosis changed due to Research Module. Go to Snapshot for study details. Encounter for examination fo r normal comparison and control in clinical research program 12/26/2017 01/21/2022 Overview: DO NOT DELETE [facility] Study: Project # [id number], Cut Press Operator: Napoleon Dean, MS, MPH. SUMMARY: Goal: [...] contact study staff at ; after hours Cut Press Operator via the [facility] hospital dissolver operator . - Please contact study team before resolving/deleting from patients problem list. Study phone number: [phone]. Diagnosis changed due to Research Module. Go to Snapshot for study details. Adrenal insufficiency 10/15/20162019 Family history of melanoma 09/11/2015 0 10/26/2016 Overview: mother Actinic keratosis 06/05/2013 07/14/2018 Other seborrheic keratosis 06/05/2013 0 07/14/2018 Mucocele of lower lip 06/05/20132016 Hypothyroidism 01/23/2013 10/16/2015 PTSD (post-traumatic stress disorder) 11/23/2011 05/14/2013 Uterine prolapse 11/09/2010 09/13/2017 Vitamin D deficiency 08/12/2009 018 COPD with emphysema 11/20/2008 06/30/19 23 ADVANCE DIRECTIVE INFORMATION 05/14/2008 06/03/2017 Overview: No, Advance Directive brochure offered , patient declined. ABN INVOLUN MOVEMENT NEC 04/08/200610/2016 Osteoporosis 04/27/2005 03/03/2017 Pain in limb 2005 10/26/2016 GENERAL OSTEOARTHROSIS 11/22/200209/13 Essential tremor 07/10/2001 01/17/2018 Major depressive disorder Overview: ICD-10 update of inactive term Bipolar disorder 05/14/2013 Tobacco use disorder 017 Bipolar disorder 07/06/2013 documented as of this encounter (statuses as of 12/05/2023) Immunizations Name Administration Dates Next Due 01/24/2014,11/08/2013 04/29/2014 COVID-19 mRNA, LNP-s, No Pre serve, 2-Dose Series (eyesFinder) 07/30/2020,07/09/2020 COVID-19, mRNA, LNP-s, PF, B ooster, [...] Influenza, Split, I IV3, With Preserve, Inj 01/28/2015,04/09/2014,05/14/2013,10/05/2012,04/19/2012,04/01/2010,04/28/20,03/12/2008,04/06/2007 Seasonal Influenza, Trivalen t, Adjuvanted, 65+ yrs [...] encounter Miscellaneous Notes * Telephone Encounter - Golden Gtz [facility] - 12/05/2023 1:12 PM EDTSigned Prescriptions: Disp Refills Famotidine 20 MG Oral Tablet (Pepcid) 180 Ta*3 Sig: TAKE 1 TABLET BY MOUTH TWICE A DAYAuthorizing Provider: LÓPEZ EDWARD User: GOLDEN GTZ-- documented in this encounter Plan of Treatment Upcoming Encounters Date Type Department Care Team (Late st Contact Info) Description 12/06/2023 11:30 AM EDT Office Visit General Surgery, [facility] [address] [facility] [place] [address] Yue Morales MD [address] [facility] [place] [address] 12/20/2023 2:30 PM EDT Telemedicine [facility] [address] [facility] [place] [address] Noemi Raymundo, ARMANI [address] [facility] [place] [address] 01/17/2024 10:00 AM EDT Scheduled Telephone Neurology [address] [phone] Paradise Winchester, TRANSPORT TANK TECHNICIAN [address] [facility] [place] [id number] 02/20/2024 2:00 PM EDT Imaging Radiology, [address] [place] [address] 03/12/2024 11:30 AM EDT Office Visit Neurology [address] [phone] Js Lopez MD [address] [facility] [place] [address] 04/09/2024 2:00 PM EST Office Visit General Internal Medicine [facility] [address] [place] [address] López Edward MD [address] [place] [address] Scheduled Procedures Name Priority Associated Diagnoses Date/Ti [...] D LEVEL ONCE IN A LIFETIME-USE SMARTSET# [id number] Completed 01/23/2020, 02/08/2017, 11/18/2015, Additional history exists [...] this encounter Medical Devices Implanted Type Area Fuel Truck Driver Device Identifier Shelf Expiration Date Model / Serial / Lot [employer], Embosphere, 100-300 Units Implanted:Qty: 1 on 05/21/2019 by Kadeem Ware MD at OR [facility] N/A: Head [employer] 12/20/2021 S220GH / S220GH / [id number] [id number] Inc, Bare [place], Axium Prime, Detachable Coil System,[id number] Implanted:Qty: 1 on 05/21/2019 by Kadeem Ware MD at OR [facility] N/A: Head [employer] INC 10/02/2021 APB-1-2-HX -ES / APB-1-2-HX -ES / [id number] Ev3 Inc, Bare [place], Axium Prime, Detachable Coil System,[id number] Implanted:Qty: 1 on 05/21/2019 by Kadeem Ware MD at OR [facility] N/A: Head [employer] 03/06/2021 APB-1-3-HX -ES / APB-1-3-HX -ES / [id number] documented as of this encounter Visit Diagnoses Diagnosis GERD (gastroesophageal reflux disease) Esophageal reflux documented in this encounter Advance Directives * Full Code (Latest Code Status on File) Date Activated Date Inactivated Comments 05/19/2019 8:38 AM 05/28/2019 7:54 PM This order r eflects the patients wishes and were consensually agreed upon. Care Teams Street Light Servicer Helper Relationship Specialty Start Date End Date López Edward MD 200 [facility] [place] [address] PCP - General Internal Medicine 07/14/18 documented as of this encounter
--- OUTSIDE RECORDS SUMMARY | 2024-02-26 03:36 | External Medical Summary | Summary of Care ---
Author Name Unknown Organization [facility] Address [address] [place] [address] Phone [phone] Care Team Providers Care Developer Trading Systems Name Role Phone López Edward MD Primary Care Provider + Reason for Visit * Reason Comments NEW PATIENT Mass of right breast . * Evaluate & Treat - Unlimited Visits (Within 10 days (routine)) - Authorized Specialty Diagnoses / Procedures Referred By Contac t Referred To Contact General Surgery - Breast Surgery / Surgical Oncology Diagnoses Mass of right breast, unspecified quadrant Loss of weight López Edward MD [address] [place] [address] Referral ID Status Reason Start Date Expiration Date Visits Requested Visits Authorized [id number] Authorized Specialty Services Required 11/22/[phone] Encounter Details Date Type Department Care Team (Late st Contact Info) Description 12/06/2023 11:30 AM EDT Office Visit General Surgery, [facility] [address] [facility] [place] [address] Yue Morales MD [address] [place] [address]* Allergies Active Allergy Reactions Criticality Noted Date [...] as of this encounter (statuses as of 12/06/2023) Medications Medication Sig Dispensed Refills Start Date [...] mouth daily as needed for Constipation. Active Lxftqxx-Vqneusf-Qla hyl Jaskaran 1.2-5.7-6.3 % External Patch Apply [...] as of this encounter (statuses as of 12/06/2023) Active Problems Problem Noted Date Diagnosed Date Coronary artery calcification 09/26/2023 Dyslipidemia, goal LDL below 70 09/14/2023 Moderate protein-calorie malnutrition 10/13/2022 Affective psychosis, bipolar 06/30/2022 Delusional disorder 06/30/2022 Schizoaffective disorder, bipolar type Mild mitral regurgitation 08/05/2020 Diastolic dysfunction 08/05/2020 [...] as of this encounter (statuses as of 12/06/2023) Resolved Problems Problem Noted Date Diagnosed Date [...] program 12/26/2017 12/24/2019 Overview: DO NOT DELETE [facility] Study: Project # [id number], Senior Engineering Team Leader: Ihsan Rucker, PhD. SUMMARY: Goal: Establish test [...] study staff at ; after hours Senior Engineering Team Leader via the [facility] block operator . Please contact study team before resolving/deleting from patients problem list. Study phone number: [phone]. Diagnosis changed due to Research Module. Go to Snapshot for study details. Encounter for examination fo r normal comparison and control in clinical research program 12/26/2017 01/21/2022 Overview: DO NOT DELETE - [facility] Study: Project # [id number], Senior Engineering Team Leader: Napoleon Dean, MS, MPH. SUMMARY: Goal: Establish [...] study staff at ; after hours Senior Engineering Team Leader via the [facility] hospital block operator . - Please contact study team before resolving/deleting from patients problem list. Study phone number: [phone]. Diagnosis changed due to Research Module. Go to BackType for study details. Adrenal insufficiency 10/15/20162019 Family [...] as of this encounter (statuses as of 12/06/2023) Immunizations Name Administration Dates Next Due 01/24/2014,11/08/2013 04/29/2014 COVID-19 mRNA, LNP-s, No Pre serve, 2-Dose Series ([employer]) 07/30/2020,07/09/2020 COVID-19, mRNA, LNP-s, PF, B [...] Sign Reading Time Taken Comments Blood Pressure 100/54 12/06/2023 11:38 AM EDT Pulse 95 12/06/2023 11:38 AM EDT Temperature - - Respiratory Rate - - Oxygen Saturation - - Inhaled Oxygen Concentration - - Weight 45.2 kg (99 lb 9.6 oz) 12/06/2023 11:38 A M EDT Height - - Body Mass Index 18.82 11/22/2023 1:38 PM EDT documented in this [...] as of this encounter Progress Notes * Yue Morales MD - 12/06/2023 11:48 AM EDT [facility] NEW BREAST EXAM CLINIC NOTES Chief Complaint Patient presents with NEW PATIENT Mass of right breast. REASON FOR CONSULTATION: Right abnormal chest CT scan HPI: Sirisha Patterson is a 73 year old female who is seen at the request of López Edward MD for evaluation of a right breast mass noted on chest CT done for lung cancer screening. This revealed a mass in the right breast. Mammogram was recommended and was done. 3D mammo shows no evidence of a breast mass. Pt does not feel any areas of concern. Here to have the area checked. Baseline is frail - has COPD, essential tremor, balance issues, decreased strength, cardiac issues.Has been having weight loss. No family history of breast cancer. No prior breast procedures. BREAST ROS: No new breast lumps or masses, No severe breast pain, No nipple discharge, No recent change in shape/color, and went to Dr. Edward who did not feel any areas of concern. GYNECOLOGIC HISTORY: LMP: No LMP recorded. Patient is postmenopausal. Menarche at age: 11-12 Menopause at age: 44-45 Number of children: 3 Patient's age at first live : 20 Did you breast feed any of your children: Yes Ever take oral contraceptives? Yes, history of use for one month. Ever take estrogen? Yes, current use estradial vaginal cream for couple of year(s) RADIOLOGIC INTERPRETATION: 11/08/23: Result MAMMOGRAM DIAGNOSTIC SYLVESTER BILATERAL History Mass of right breast, unspecified quadrant Family medical history includes colon cancer in 2 relatives (mother (comments: age 83), sister(comments: Rectal)). Films Compared 12/29/2021 MAMMOGRAM SCREENING SYLVESTER BILATERAL, 11/18/2020 MAMMOGRAM SCREENING SYLVESTER BILATERAL, and 11/08/2019 MAMMOGRAM SCREENING BILATERAL Findings There are benign calcifications present. There are scattered areas of fibroglandular density. There is no evidence of suspicious masses, calcifications, or other abnormal findings. There is no abnormality to correspond to the questioned finding on CT 10/26/2023. There is generalized increased density of both breasts and increase in the trabecular markings which may be due to interval weight loss. Impression Bilateral No mammographic evidence of malignancy. BI-RADS Category: 2 - Benign. Recommendation Resume annual screening mammography is recommended for both breasts. 10/26/23: EXAM: CT CHEST LOW DOSE SCAN LUNG CANCER SCREEN 1 YEAR FOLLOW UP10/26/2023 HISTORY: Lung Cancer Screening TECHNIQUE: Noncontrast low-dose CT (LDCT) chest per standard departmental protocol. COMPARISON: 06/29/2021 FINDINGS: Lung Screening Specific (LungRADS): No suspicious pulmonary nodule. Potentially Significant Incidentals (LungRADS Category S): Indeterminate 2.1 x 1.5 cm right upper-outer breast mass. Pulmonary incidentals: Moderate emphysema. Other Incidentals: Atherosclerotic calcifications of the aorta and coronary arteries. Scattered hepatic cysts. Cholecystectomy. Stable L1 and L3 compression deformities. Diffuse osteopenia and degenerative osseous changes. IMPRESSION IMPRESSION: 1. LungRADS Category 1: Negative. No evidence of lung cancer. 2. LungRADS Category S: Positive. Indeterminate right 2.1 cm breast mass. Diagnostic mammogram is recommended for further evaluation. 3. Incidental findings as above. RECOMMENDATIONS: 1. Next exam to be arranged by the Lung Cancer Screening Program. 2. Management of the significant incidental finding is deferred to the primary care provider. Diagnostic mammogram is recommended for further evaluation. I personally viewed and interpreted the mammographic and CT films and concur with the above. The mass on the CT appears to be an area of slightly denser breast tissue on mammo. FAMILY HISTORY: Family history of breast cancer: None Family history of ovarian cancer: None Family history of other cancer: colorectal Family History Problem Relation Name Age of Onset Melanoma Mother Hypertension Mother Thyroid Disorder Mother Colon cancer Mother age 83 Heart Disorder Father CABG age 50; age 85 Cancer Sister Josy Gooden Anal cancer with mets Colon cancer Sister Josy Gooden Rectal No Known Problems Sister Maribteh No Known Problems Sister Nichol Other (Fibromyalgia) [...] RD Breast Cancer No significant family history PAST MEDICAL HISTORY: Past Medical History: Diagnosis Date Abnormal involuntary movement 04/08/2006 paternal family history of tremors and Parkinsons Acquired hypothyroidism 08/17/2020 Adrenal insufficiency (HCC) 10/15/2016 Bipolar disorder (HCC) COPD (chronic obstructive pulmonary disease) (HCC) Depressive disorder, not elsewhere classified Dr Fonseca and Sandy Fuentes Diastolic dysfunction 08/05/2020 GERD (gastroesophageal reflux disease) Heart failure ([facility]) High risk for fracture due to osteoporosis by DEXA scan 02/23/2017 Hypothyroidism 01/23/2013 INFORMATION Basal ganglia neuroma Lung nodule Mild mitral regurgitation 08/05/2020 Other osteoporosis Other specified acquired hypothyroidism Peripheral neuropathy PTSD (post-traumatic stress disorder) 11/23/2011 S/P coil embolization of cerebral aneurysm 05/21/2019 right middle meningeal artery frontal and parietal branches Spasmodic torticollis 03/29/2019 Tachycardia atrial Tobacco use disorder Has essential tremor (not Parkinson's) Walk with walker because of balance or strengths. No frequent falls (none in the last 6 months). PAST SURGICAL HISTORY: Past Surgical History: Procedure Laterality Date CATARACT SURGERY,COMPLEX Left 12/04/2015 Mar CATARACT SURGERY,COMPLEX Right 11/2016 COLONOSCOPY 04/18/2006 normal repeat 2010 COLONOSCOPY, DIAGNOSTIC (RECTUM) 05/02/1997 improper prep. COLONOSCOPY, DIAGNOSTIC (RECTUM) 08/08/2013 COLONOSCOPY FLEXIBLE PROXIMAL DIAGNOSTIC performed by David Cotton MD at ENDOSCOPY [facility] COLONOSCOPY, DIAGNOSTIC (RECTUM) 02/04/2015 benign polyp, repeat 5 yrs/COLONOSCOPY FLEXIBLE PROXIMAL DIAGNOSTIC performed by David Cotton MD at ENDOSCOPY [facility] COLONOSCOPY, DIAGNOSTIC (RECTUM) N/A 03/25/2021 non-bleeding internal hemorrhoids/recall 5 years/Colonoscopy/[place] CORONARY ANGIOGRAPHY W/LEFT HEART CATH N/A 07/10/2014 CORONARY ANGIOGRAPHY W/LEFT HEART CATH performed by Celeste Madrid MD at [facility] CYSTOSCOPY 05/14/2008 CYSTOSCOPY 12/16/2014 CYSTOSCOPY 05/29/2018 done in office- Dr Bob DILATION AND CURETTAGE (D&C) D&C EGD, FLEXIBLE, DIAGNOSTIC 08/08/2013 ESOPHAGOGASTRODUODENOSCOPY (EGD), FLEXIBLE, TRANSORAL, DIAGNOSTIC performed by David Cotton MD at ENDOSCOPY [facility] EGD, FLEXIBLE, DIAGNOSTIC 02/04/2015 normal bx/ESOPHAGOGASTRODUODENOSCOPY (EGD), FLEXIBLE, TRANSORAL, DIAGNOSTIC performed by David Cotton MD at ENDOSCOPY [facility] EGD, FLEXIBLE, DIAGNOSTIC 01/07/2022 normal bx / [facility] EGD, FLEXIBLE, DIAGNOSTIC N/A 03/25/2021 small [...] performed by Kadeem Ware MD at [facility] AR LAP,CHOLECYSTECTOMY 11/20/2022 REMOVAL OF APPENDIX REMOVE TONSILS & ADENOIDS, UNDER 12 REVISION OF UTERUS 1994 fibroid removed SURGICAL REMOVAL, ERUPTED TOOTH AND BONE CURRENT OUTPATIENT PRESCRIPTIONS: Current Outpatient Medications Medication Sig Dispense Refill [...] by mouth daily as needed for Constipation. Sjsemcv-Upnfxrg-Viakem Jaskaran 1.2-5.7-6.3 % External Patch Apply 1 [...] into a large muscle every 4 weeks. Omeprazole 20 MG Oral Capsule Delayed Release [...] 2 Carbidopa-Levodopa 25-100 MG Oral Tablet (Sinemet) Add 1/2 tab one dose at a time, every 3 days, upto 2 tabs 3 times day 180 Tablet 6 Famotidine 20 MG Oral Tablet (Pepcid) TAKE 1 TABLET BY MOUTH TWICE A DAY 180 Tablet 3 No current facility-administered medications for this visit. ALLERGIES: Adhesive tape, Beclomethasone, Cheese, Topiramate, Tyramine, Albuterol, Beclomethasone, Ephedrine, Epinephrine, Epinephrine, Food (see comments), Latex, Levalbuterol, Procaine, Doxycycline, Gabapentin, and Nickel SOCIAL HISTORY: Social History Tobacco Use Smoking status: Former Current packs/day: 0.00 Average packs/day: 1 pack/day for 30.0 years (30.0 ttl pk-yrs) Types: Cigarettes Start date: 05/23/1981 Quit date: 05/23/2011 Years since quittin.5 Smokeless tobacco: Never Substance Use Topics Alcohol use: Not Currently Comment: rare Vaping/E-Cigarette Use Vaping/E-Cigarette Use Never User Vaping/E-Cigarette Substances Nicotine No Other No Flavoring No THC No Cannabidiol (CBD) No Vaping/E-Cigarette Devices Disposable No Pre-filled or Refillable Cartridge No Refillable Tank No Pre-filled Pod No PHYSICAL EXAMINATION Blood pressure 100/54, pulse 95, weight 45.2 kg (99 lb 9.6 oz), not currently . Constitutional: frail Head: normocephalic, atraumatic Eyes: conjunctiva non-injected, sclera white Ears: pinna normal shape and color Neck: supple, no adenopathy Extremities: no edema Neuro: alert, decreased strength BREAST EXAMINATION: Small breasted Right Breast: Right Breast: Masses noted: No Post XRT edema: No Post XRT erythema: No Other palpable abnormality: No Skin: Skin retraction: No Peau d'orange: No Telangectasia: No Scar(s) present: No Other changes: No Right Nipple: Nipple inversion: No Pagets: No Nipple discharge: No Right Lymph Nodes: Arm edema: No Palpable axillary adenopathy: No Palpable supraclavicular adenopathy: No Previous axillary incision: No Left Breast: Left Breast: Masses noted: No Post XRT edema: No Post XRT erythema: No Other palpable abnormality: No Skin: Skin retraction: No Peau d'orange: No Telangectasia: No Scar(s) present: No Other changes: No Left Nipple: Nipple inversion: No Pagets: No Nipple discharge: No Left Lymph Nodes: Arm edema: No Palpable axillary adenopathy: No Palpable supraclavicular adenopathy: No Previous axillary incision: No RISK FACTORS FOR BREAST CANCER: Family history of breast cancer: No Known or suspected genetic mutation: No Previous suspicious breast biopsies: No Purchaser factors: No Other: none ASSESSMENT: 73-year-old woman with abnormal chest CT scan showing a right breast mass. However her exam is within normal limits. Mammogram does not show any evidence of concern in either breast. She does have slightly denser tissue in the upper outer region on mammography. Given the normal mammogram and normal clinical exam, I am not as worried about the CT finding as CT scans are not as sensitive for breast malignancy. I do not feel any further workup is needed. There currently is no target tobiopsy. This was reviewed with the patient and she is comfortable with this plan. I would recommendrepeating a mammogram in a year. Her weight loss in unlikely to be related to this breast mass (outside of metastatic disease and noareas of concern in breast or lymph nodes are present on mammo/ exam). PLAN: In conclusion, our recommendation for this patient is continue with another screening mammogram in 1 yr. F/u PRN. I spent a total of 30-39 minutes (exact time 32 mins) on the date of service in preparation, delivery, and documentation of the care provided to Sirisha Patterson excluding any time spent in the performance of separately billed services. Yue Morales M.D. 12/06/2023 12:16 PM documented in this encounter Nursing Notes * Inna Camejo MED ASSIST - 12/06/2023 11:39 AM EDT Chief Complaint Patient presents with NEW PATIENT Mass of right breast. Patient presents today for evaluation of Mass of right breast. Patient had mammogram done at [facility] on 11/08/2023. BREAST HISTORY: Mass: No Breast Pain: no Nipple discharge: No Previous problems/surgeries: None Breast Cancer: no Other Cancers: no GYNECOLOGIC HISTORY: LMP: No LMP recorded. Patient is postmenopausal. Menarche at age: 11-12 Menopause at age: 44-45 Number of children: 3 Patient's age at first live : 20 Did you breast feed any of your children: Yes Ever take oral contraceptives? Yes, history of use for one month. Ever take estrogen? Yes, current use estradiol for couple of year(s) Family History of Breast Cancer: No documented in this encounter Plan of Treatment Upcoming Encounters Date Type Department Care Team (Late st Contact Info) Description 12/20/2023 2:30 PM EDT Telemedicine [facility] [address] [place] [address] Noemi Raymundo, ARMANI [address] [place] [address] 01/17/2024 10:00 AM EDT Scheduled Telephone Neurology [address] [place] [address] [phone] Paradise [place], MATTEO [address] [place] [id number] 02/20/2024 2:00 PM EDT Imaging Radiology, [address] [place] [address] 03/12/2024 11:30 AM EDT Office Visit Neurology [address] [place] [address] [address] Js Lopez MD [address] [place] [address] 04/09/2024 2:00 PM EST Office Visit General Internal Medicine [facility] [place] [address] [facility] [place] [address] López Edward MD [address] [facility] [place] [address] Scheduled Procedures Name Priority Associated Diagnoses Date/Ti [...] D LEVEL ONCE IN A LIFETIME-USE SMARTSET# 29969 Completed 01/23/2020, 02/08/2017, 11/18/2015, Additional history exists [...] this encounter Medical Devices Implanted Type Area Burn Out Tender Lace Device Identifier Shelf Expiration Date Model / Serial / Lot [employer], Embosphere, 100-300 Units Implanted:Qty: 1 on 05/21/2019 by Kadeem Ware MD at [place] [facility] N/A: Head [employer] 12/20/2021 [id number] / [id number] / [id number] [employer], Bare [place], Axium Prime, Detachable Coil System,[id number] Implanted:Qty: 1 on 05/21/2019 by Kadeem Ware MD at [place] [facility] N/A: Head [employer] 10/02/2021 APB-1-2-HX -ES / APB-1-2-HX -ES / [id number] [id number], Bare [place], Axium Prime, Detachable Coil System,[id number] Implanted:Qty: 1 on 05/21/2019 by Kadeem Ware MD at [place] [facility] N/A: Head [employer] 03/06/2021 APB-1-3-HX -ES / APB-1-3-HX -ES / [id number] documented as of this encounter Visit Diagnoses Diagnosis Abnormal chest CT- Primary Nonspecific (abnormal) findings on radiological and other examination of other intrathoracic organs documented in this encounter Advance Directives * Full Code (Latest Code Status on File) Date Activated Date Inactivated Comments 05/19/2019 8:38 AM 05/28/2019 7:54 PM This order r eflects the patients wishes and were consensually agreed upon. Care Teams Developer Trading Systems Relationship Specialty Start Date End Date López Edward MD [address] [place] [address] PCP - General Internal Medicine 07/14/18 documented as of this encounter
--- OUTSIDE RECORDS SUMMARY | 2024-02-26 03:36 | External Medical Summary | Summary of Care ---
Author Name Unknown Organization [facility] Address [address] [place] [address] Phone [phone] Care Team Providers Care Epitaxial Reactor Technician Name Role Phone López Edward MD Primary Care Provider + Reason for Visit * Reason Onset Date Comments Medication Question 12/15/2023 Encounter Details Date Type Department Care Team (Late st Contact Info) Description 12/15/2023 Telephone Neurology [address] [place] [address] [place] [address] Js Lopez MD [address] [place] [address] Medication Question Allergies Active Allergy Reactions Criticality Noted Date [...] as of this encounter (statuses as of 12/15/2023) Medications Medication Sig Dispensed Refills Start Date [...] mouth daily as needed for Constipation. Active Pstijum-Moxprpt-Lsp hyl Jaskaran 1.2-5.7-6.3 % External Patch Apply [...] as of this encounter (statuses as of 12/15/2023) Active Problems Problem Noted Date Diagnosed Date [...] as of this encounter (statuses as of 12/15/2023) Resolved Problems Problem Noted Date Diagnosed Date [...] 12/26/2017 12/24/2019 Overview: DO NOT DELETE [facility] DETECT Study: Project # [id number], Customer Solutions Teammate: Ihsan Rucker, PhD. SUMMARY: Goal: Establish test [...] contact study staff at ; after hours Customer Solutions Teammate via the [facility] hospital cold roll operator . Please contact study team before resolving/deleting from patients problem list. Study phone number: [phone]. Diagnosis changed due to Research Module. Go to Snapshot for study details. Encounter for examination fo r normal comparison and control in clinical research program 12/26/2017 01/21/2022 Overview: DO NOT DELETE - [facility] BARRY Study: Project # [id number], Customer Solutions Teammate: Napoleon Dean, MS, MPH. SUMMARY: Goal: Establish [...] contact study staff at ; after hours Customer Solutions Teammate via the [facility] hospital cold roll operator . - Please contact study team before resolving/deleting from patients problem list. Study phone number: [phone]. Diagnosis changed due to Research Module. Go [...] as of this encounter (statuses as of 12/15/2023) Immunizations Name Administration Dates Next Due 01/24/2014,11/08/2013 [...] Telephone Encounter - Paradise Winchester LPN - 12/15/2023 2:02 PM EDT This was ordered 12/02/23 * Telephone Encounter - Shawanda Raymundo CPhT - 12/15/2023 1:04 PM EDT Pharmacy requesting refills for Carbidopa-Levodopa 25-100 MG Oral Tablet (Sinemet) . Upon chart review, medication is listed as discontinued, with discontinuation reason as "medication list clean up". Please advise if you wish to continue this therapy for the patient. Thank you, Shawanda Raymundo CPhT Physician President II [facility] 12/15/2023, 1:04 PM documented in this encounter Plan of Treatment Upcoming Encounters Date Type Department Care Team (Late st Contact Info) Description 12/20/2023 2:30 PM EDT Telemedicine [facility] [address] [place] [address] Noemi Raymundo, ARMANI [address] [facility] [place] [address] 01/17/2024 10:00 AM EDT Scheduled Telephone Neurology [address] [phone] Paradise Winchester LPN [address] [place] [address] 02/20/2024 2:00 PM EDT Imaging Radiology, [place] [id number] [facility] [place] [address] 03/12/2024 11:30 AM EDT Office Visit Neurology [address] [phone] Js Lopez MD [address] [place], [place] [id number] 04/09/2024 2:00 PM EST Office Visit General Internal Medicine [facility] [address] [facility] [place] [address] López Edward MD [address] [place] [address] Scheduled Procedures Name Priority Associated Diagnoses Date/Ti [...] D LEVEL ONCE IN A LIFETIME-USE SMARTSET# [id number] Completed 01/23/2020, 02/08/2017, 11/18/2015, Additional history exists [...] this encounter Medical Devices Implanted Type Area Channel Sales Director Device Identifier Shelf Expiration Date Model / Serial / Lot [employer], Embosphere, 100-300 Units Implanted:Qty: 1 on 05/21/2019 by Kadeem Ware MD at OR [facility] N/A: Head [employer] 12/20/2021 S220GH / [id number] / [id number] [id number], Bare [place], Axium Prime, Detachable Coil System,[id number] Implanted:Qty: 1 on 05/21/2019 by Kadeem Ware MD at OR [facility] N/A: Head [employer] 10/02/2021 APB-1-2-HX -ES / APB-1-2-HX -ES / [id number] [id number], Bare [place], Axium Prime, Detachable Coil System,[id number] Implanted:Qty: 1 on 05/21/2019 by Kadeem Ware MD at OR [facility] N/A: Head [employer] 03/06/2021 APB-1-3-HX -ES / APB-1-3-HX -ES / [id number] documented as of this encounter Advance Directives * Full Code (Latest Code Status on File) Date Activated Date Inactivated Comments 05/19/2019 8:38 AM 05/28/2019 7:54 PM This order r eflects the patients wishes and were consensually agreed upon. Care Teams Epitaxial Reactor Technician Relationship Specialty Start Date End Date López Edward MD [address] [place] [address] PCP - General Internal Medicine 07/14/18 documented as of this encounter
--- OUTSIDE RECORDS SUMMARY | 2024-02-26 03:36 | External Medical Summary | Summary of Care ---
Author Name Unknown Organization [facility] Address [address] [place] [address] Phone [phone] Care Team Providers Care Financial Foundations Associate Name Role Phone López Edward MD Primary Care Provider + Reason for Visit * Reason Comments Follow Up Botox inj * Precert (Within 10 days (routine)) - Authorized Specialty Diagnoses / Procedures Referred By Contac t Referred To Contact Neurology Diagnoses Spasmodic torticollis Procedures [place] INJECTION,ONABOTULINUMTOXIN A Js Lopez MD [address] [place] [address] Js Lopez MD [address] [place] [address] Referral ID Status Reason Start Date Expiration Date V isits Requested Visits Authorized [id number] Authorized Precert 10/15/2023 2024 2 2 Encounter Details Date Type Department Care Team (Late st Contact Info) Description 12/02/2023 3:00 PM EDT Office Visit Neurology [address] [phone] Js Lopez MD [address] [place] [address] Spasmodic torticollis*; Essential tremor; Parkinsonian [...] as of this encounter (statuses as of 12/02/2023) Medications Medication Sig Dispensed Refills Start Date [...] mouth daily as needed for Constipation. Active Jvtcelf-Rcfzkur-F ethyl Jaskaran 1.2-5.7-6.3 % External Patch Apply [...] 2 Active Famotidine 20 MG Oral Tablet (Pepcid)Indicatio [...] times day 180 Tablet 6 4 Active Carbidopa-Levodop a 25-100 MG Oral Tablet (Sinemet) 4 12/02/19 24 Discontinued Hospital, Clinic, or Other Facility Administered Medication Ordered Dose Route Frequency Start Date End Date Status botulinum toxin type a (Botox) inj 100 UnitsIndications:Essential tremor,Spasmodic torticollis 100 Units IM ONCE 12/02/2023 12/02/2023 Ended documented as of this encounter (statuses as of 12/02/2023) Active Problems Problem Noted Date Diagnosed Date [...] as of this encounter (statuses as of 12/02/2023) Resolved Problems Problem Noted Date Diagnosed Date Resolved Date 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 SUMMARY: Goal: Establish test [...] contact study staff at ; after hours Telegraph Plant Maintainer via the [facility] hospital orange peel operator . Please contact study team before resolving/deleting from patients problem list. Study phone number: [phone]. Diagnosis changed due to Research Module. Go to Snapshot for study details. Encounter for examination fo r normal comparison and control in clinical research program 12/26/2017 01/21/2022 Overview: [facility] Study: Project # [id number], Telegraph Plant Maintainer: Napoleon Dean, MS, MPH. SUMMARY: Goal: Establish [...] contact study staff at ; after hours Telegraph Plant Maintainer via the [facility] hospital orange peel operator . - Please contact study team before resolving/deleting from patients problem list. Study phone number: [phone]. Diagnosis changed due to Research Module. Go [...] as of this encounter (statuses as of 12/02/2023) Immunizations Name Administration Dates Next Due 01/24/2014,11/08/2013 [...] by mouth daily as needed for Constipation. Irdsrke-Ibabsui-Ordqjz Jaskaran 1.2-5.7-6.3 % External Patch Apply 1 [...] 11:30 AM EDT Office Visit General Surgery, [facility] [address] [address] Yue Morales MD [address] [address] 12/20/2023 2:30 PM EDT Telemedicine [facility] [address] [address] Noemi Raymundo RDN [address] [address] 01/17/2024 10:00 AM EDT Scheduled Telephone Neurology [address] [phone] Paradise Winchester LPN [address], [place] [id number] 02/20/2024 2:00 PM EDT Imaging Radiology, [address] [place] [address] 03/12/2024 11:30 AM EDT Office Visit Neurology [address] [phone] Js Lopez MD [address], [place] [id number] 04/09/2024 2:00 PM EST Office Visit General Internal Medicine [facility] [address] [facility] [place] [address] López Edward MD [address] [facility] [place] [address] Scheduled Orders Name Type Priority Associated Diagnoses [...] Additional history exists DXA Scan 08/05/2021 08/06/2019, 10/06/2016, 08/20/2015, Additional history exists COVID-19 Vaccine ( season) 2023 05/22/2021, 07/30/2020, 07/09/2020 Influenza Vaccine (FLU shot) (#1) 2024 03/14/2023, 03/16/2022, 02/06/2021, Additional history exists TSH 09/13/2024 09/14/2023, 12/21, 12/23/2021, Additional history exists Mammogram 11/07/2024 11/08/2023, 10/21, 12/29/2021, Additional history exists O2 ASSESSMENT COMPLETED IN PAST YEAR FOR COPD 11/21/2024 11/22/2023 Colonoscopy 03/25/2026 03/25/2021, 11/07/2020, 03/25/2021, Additional history exists Colorectal Cancer Screening 03/25/2026 DTaP,Tdap,and Td Vaccines (3 - Td or Tdap) 11/24/2026 11/24/2016, 05/15/2007 Pneumococcal Vaccine: 65+ Years Completed 09/01/2015, 06/04/2014, 04/06/2007 VITAMIN D LEVEL ONCE IN A LIFETIME-USE SMARTSET# [id number] Completed 01/23/2020, 02/08/2017, 11/18/2015, Additional history exists [...] this encounter Medical Devices Implanted Type Area External Relations Manager Device Identifier Shelf Expiration Date Model / Serial / Lot DragonWave Inc, Embosphere, 100-300 Units Implanted:Qty: 1 on 05/21/2019 by Kadeem Ware MD at OR [facility] N/A: Head [employer] 12/20/2021 S220GH / [id number] / [id number] [id number] Inc, Bare [place], Axium Prime, Detachable Coil System,[id number] Implanted:Qty: 1 on 05/21/2019 by Kadeem Ware MD at OR [facility] N/A: Head [employer] INC 10/02/2021 APB-1-2-HX -ES / APB-1-2-HX -ES / [id number] [id number] Inc, Bare [place], Axium Prime, Detachable Coil System,[id number] Implanted:Qty: 1 on 05/21/2019 by Kadeem Ware MD at OR [facility] N/A: Head [employer] 03/06/2021 APB-1-3-HX -ES / APB-1-3-HX -ES / [id number] documented as of this encounter Visit Diagnoses [...] and were consensually agreed upon. Care Teams Financial Foundations Associate Relationship Specialty Start Date End Date López Edward MD [address] [place] [address] PCP - General Internal Medicine 07/14/18 documented as of this encounter
--- OUTSIDE RECORDS SUMMARY | 2024-02-26 03:36 | External Medical Summary | Summary of Care ---
Author Name Unknown Organization [facility] Address [address] [place] [address] Phone [phone] Care Team Providers Care Machine Hand Name Role Phone López Edward MD Primary Care Provider + Reason for Visit * Reason Onset Date Comments Test Results 11/09/2023 Encounter Details Date Type Department Care Team (Late st Contact Info) Description 11/09/2023 Telephone General Internal Medicine [facility] [address] [facility] [place] [phone] López Edward MD [address] [address] Test Results Allergies Active Allergy Reactions Criticality Noted Date [...] as of this encounter (statuses as of 11/21/2023) Medications Medication Sig Dispensed Refills Start Date [...] mouth daily as needed for Constipation. Active Drdkwrc-Qecyzvu-Tgd hyl Jaskaran 1.2-5.7-6.3 % External Patch Apply [...] Active Carbidopa-Levodopa 25-100 MG Oral Tablet (Sinemet) TAKE 1/2 TABLET AT BED TIME FOR 1 WEEK, THEN ADD EXTRA 1/2 TAB EACH WEEK, UP TO 1 TAB 3 TIMES A DAY. 09/22/2023 Active Estradiol 0.1 MG/GM Vaginal Cream (Estrace) USE 1/2 APPLICATORFUL INTO VAGINA 2X A WEEK 42.5 g 1 11/08/2023 Active clonazePAM 1 MG Oral Tablet (KlonoPIN)Indicatio ns:Essential tremor TAKE 1 TABLET BY MOUTH THREE TIMES A DAY 90 Tablet 2 10/24/2023 Active documented as of this encounter (statuses as of 11/21/2023) Active Problems Problem Noted Date Diagnosed Date [...] as of this encounter (statuses as of 11/21/2023) Resolved Problems Problem Noted Date Diagnosed Date [...] program 12/26/2017 12/24/2019 Overview: DO NOT DELETE [facility] DETECT Study: Project # [id number], Vacuum Cleaner Mechanic: Ihsan Rucker, PhD. SUMMARY: Goal: Establish test [...] contact study staff at ; after hours Vacuum Cleaner Mechanic via the [facility] punch card operator . Please contact study team before resolving/deleting from patients problem list. Study phone number: [phone]. Diagnosis changed due to Research Module. Go to Snapshot for study details. Encounter for examination fo r normal comparison and control in clinical research program 12/26/2017 01/21/2022 Overview: DO NOT DELETE - [facility] DET[facility] Study: Project # [id number], Vacuum Cleaner Mechanic: Napoleon Dean, MS, MPH. SUMMARY: Goal: Establish [...] contact study staff at ; after hours Vacuum Cleaner Mechanic via the [facility] hospital punch card operator . - Please contact study team before resolving/deleting from patients problem list. Study phone number: [phone]. Diagnosis changed due to Research Module. Go [...] as of this encounter (statuses as of 11/21/2023) Immunizations Name Administration Dates Next Due 01/24/2014,11/08/2013 [...] encounter Miscellaneous Notes * Telephone Encounter - Roberto Cooper OSA - 11/21/2023 9:06 AM EDT Scheduled * Telephone Encounter - López Edward MD - 11/17/2023 12:01 PM EDT Schedule any provider for acute * Telephone Encounter - Rusty Tavera OSA - 11/17/2023 11:32 AM EDT No soon appointments available * Telephone Encounter - Tash Humphrey OSA - 11/17/2023 10:28 AM EDT No Appointments Available Patient declined appointments?: No What Visit Type is needed? Return If Acute Visit Type is needed, were surrounding clinics offered to patient (Yes/No)? N/A Was patient offered appointments with other available providers (Yes/No)? N/A See Call Details? (Yes or No): No * Telephone Encounter - Roberto Cooper OSA - 11/10/2023 9:13 AM EDT LMOM 11/10/23 2 contact attempts made - unable to reach - Letter Sent * Telephone Encounter - Roberto Cooper OSA - 11/09/2023 5:45 PM EDT LMOM 11/09/23 * Telephone Encounter - Marce Washburn MED ASSIST - 11/09/2023 3:52 PM EDT Patient aware and verbalized understanding Pt denied feeling/seeing any bumps Please assist with scheduling an appt * Telephone Encounter - Marce Washburn MED JANELLE - 11/09/2023 3:49 PM EDT ----- Message from López Edward MD sent at 11/08/2023 1:16 PM EDT ----- Mammogram looks ok, does she notice a breast lump as seen on CT? Would suggest visit for exam soon documented in this encounter Plan of Treatment Upcoming Encounters Date Type Department Care Team (Late st Contact Info) Description 11/21/2023 11:30 AM EDT Office Visit Neurology [address] [place] [address] Js Lopez MD [address] [facility] [place] [address] 11/22/2023 1:40 PM EDT Office Visit General Internal Medicine [facility] [address] [place] [address] López Edward MD [address] [facility] [place] [address] 12/20/2023 2:30 PM EDT Telemedicine [facility] [address] [place] [address] Noemi Raymundo, ARMANI [address] [place] [address] 02/20/2024 2:00 PM EDT Imaging Radiology, [place] [phone] [facility] [place] [address] 04/09/2024 2:00 PM EST Office Visit General Internal Medicine [facility] [address] [place] [address] López Edward MD [address] [facility] [place] [address] Scheduled Procedures Name Priority Associated Diagnoses Date/Ti [...] D LEVEL ONCE IN A LIFETIME-USE SMARTSET# 63801 Completed 01/23/2020, 02/08/2017, 11/18/2015, Additional history exists [...] this encounter Medical Devices Implanted Type Area Lineman Service Or Work Dispatcher Device Identifier Shelf Expiration Date Model / Serial / Lot [employer], Embosphere, 100-300 Units Implanted:Qty: 1 on 05/21/2019 by Kadeem Ware MD at OR [facility] N/A: Head Take the Interview [employer] 12/20/2021 S220GH / S220GH / [id number] Ev3 Inc, Bare [place], Axium Prime, Detachable Coil System,[id number] Implanted:Qty: 1 on 05/21/2019 by Kadeem Ware MD at OR [facility] N/A: Head [employer] INC 10/02/2021 APB-1-2-HX -ES / APB-1-2-HX -ES / [id number] Ev[employer] Inc, Bare [place], Axium Prime, Detachable Coil System,[id number] Implanted:Qty: 1 on 05/21/2019 by Kadeem Ware MD at OR [facility] N/A: Head [employer] 03/06/2021 APB-1-3-HX -ES / APB-1-3-HX -ES / [id number] documented as of this encounter Advance Directives * Full Code (Latest Code Status on File) Date Activated Date Inactivated Comments 05/19/2019 8:38 AM 05/28/2019 7:54 PM This order r eflects the patients wishes and were consensually agreed upon. Care Teams Machine Hand Relationship Specialty Start Date End Date López Edward MD [address] [facility], [place] [address] PCP - General Internal Medicine 07/14/18 documented as of this encounter
--- NOTE | 2024-02-26 03:37 | Emergency Department Note ---
Past Med/Surg History Problem List Spasmodic torticollis Per records, pt denies pt states FROM neck Abnormal finding on CT scan Schizophrenia schizoaffective disorder per PCP note 04/19/23 Movement disorder Hypothyroid (Chronic) Biliary sludge (Acute) Bipolar 1 disorder (Chronic) Recurrent falls last one 07/2021; bump on head-"leakage noted from previous hematoma" COPD (chronic obstructive pulmonary disease) (Chronic) inhaler daily--chronic cough/wheeze daily per pt Osteoporosis (Chronic) Tremor (Chronic) Dystonia (Chronic) PTSD (post-traumatic stress disorder) (Chronic) hx Orthostatic hypotension (Chronic) Major depressive disorder (Chronic 11/01/11) History of left heart catheterization (LHC) (Chronic) 2012 @ [facility]--no stents History of appendectomy (Chronic) History of dilation and curettage (Chronic) mult History of laparotomy (Chronic) x2---uterine fibroids H/O esophagogastroduodenoscopy (Chronic) Medical History Spasmodic torticollis Per records, pt denies pt states FROM neck Transaminitis Osteoporosis Orthostatic hypotension Neuropathic tremor essential tremor; follows with neurology [place] Hypothyroidism GERD (gastroesophageal reflux disease) with esophageal dysmotility Chronic obstructive pulmonary disease 2L O2 HS Seborrheic keratosis Nocturnal hypoxia COPD with nocturnal hypoxia; uses 2L O2 HS Mucocele of lip Limb pain Generalized osteoarthritis of multiple sites Depression Anxiety Actinic keratitis Constipation Liver mass PCP monitoring Diastolic heart failure follows with Dr. Corona Schizophrenia schizoaffective disorder per PCP note 04/19/23 Balance problem Poor memory History of subdural hematoma 02/2019 fall; she is s/p coil embolization of middle meningeal artery Pancreatic mass pcp monitoring; per pt "told she no longer has it" Adrenal insufficiency Lung nodule monitoring Spinal stenosis Degenerative disc disease Chronic back pain Kidney stones hx-passed on own Anemia Hearing deficit Stroke 1983, numbness of left side of face Ectopic atrial tachycardia follows Dr. Corona Thoracic aortic ectasia follows Dr. Corona Lumbar compression fracture PTSD (post-traumatic stress disorder) hx Dystonia Bipolar 1 disorder Surgical History Hx laparoscopic cholecystectomy 11/20/22 [facility]: GA: MAC#3, ETT#7, atraumatic DL x 1 Hx of tubal ligation History of transesophageal echocardiography (SHAYE) S/P subdural hematoma evacuation [facility] > November 2019 coil embolization of middle meningeal artery History of colonoscopy with polypectomy History of tooth extraction all upper teeth/most of lower History of tonsillectomy and adenoidectomy History of bilateral cataract extraction per pt had it done twice on both eyes Status post glaucoma surgery unsure which eye H/O esophagogastroduodenoscopy History of laparotomy x2---uterine fibroids History of dilation and curettage mult History of appendectomy History of left heart catheterization (LHC) 2013 @ [facility]--no stents Family History Brother Family history of diabetes mellitus Family hx colonic polyps Son Family history of diabetes mellitus Aunt Family history of diabetes mellitus Uncle Family history of diabetes mellitus Mother Family hx of colon cancer Cancer Hypertension Sister Family hx of colon cancer Colorectal cancer Other No family history of adverse response to anesthesia Social History Smoking Status: Former smoker Tobacco Type: Cigarettes Age Started Using Tobacco: 37; Age Quit Using Tobacco: 62; packs per day: 1.5; Second Hand Exposure: No; Do You Dip or Chew Tobacco: No; Hx Alcohol Use: Yes Alcohol type: wine and hard liquor Alcohol Intake Frequency: Monthly or Less Hx Substance Use: No Preferred Language: Nepali Communication Ability: Effective Settlement Processor Required: No Beliefs That Will Affect Care: None marital status: Current Living Situation: Alone current occupational status: retired How many Children do You have: 3 Feels Safe at Home: No Is there a partner from a previous relationship who is making you feel unsafe now?: No Assistive Devices: Cane, Denture - Upper, Denture - Lower, Glasses, Oxygen - at Night and Walker Allergies Allergies Allergy/AdvReac Type Severity Reaction Status Date / Time topiramate Allergy Severe Breathing/eye Verified 04/29/23 09:32 problems adhesive Allergy Intermediate Rash, Verified 04/29/23 09:32 blisters beclomethasone [From Qvar] Allergy Intermediate Lip Verified 04/29/23 09:32 swelling doxycycline Allergy Intermediate Rash Verified 04/29/23 09:32 gabapentin Allergy Intermediate Rash Verified 04/29/23 09:32 nickel Allergy Intermediate Rash Verified 04/29/23 09:32 albuterol AdvReac Unknown Lightheaded, Verified 04/29/23 09:32 difficulty breathing ephedrine AdvReac Unknown Reacts Verified 04/29/23 09:32 with another med that she is no longer taking epinephrine AdvReac Unknown reacts to Verified 04/29/23 09:32 a medication that she is no longer taking levalbuterol AdvReac Unknown Made Verified 04/29/23 09:32 breathing worse per pt procaine [From Novocain] AdvReac Unknown Reacts to Verified 04/29/23 09:32 nardil med pt was previously but no longer taking Home Meds Home Medications Medication Instructions Recorded Confirmed coenzyme Q10 100 mg capsule 200 mg PO HS 02/05/19 04/29/23 estradiol 0.01% (0.1 mg/gram) 0.01 % vaginal 2XWK 02/05/19 04/29/23 vaginal cream lamotrigine 200 mg tablet 200 mg PO HS 02/05/19 04/29/23 primidone 50 mg tablet 100 mg PO BID 02/05/19 04/29/23 Lactobacillus 1 cap PO HS 02/07/19 04/29/23 acidophilus-Bifidobac.animalis 2.5 billion cell capsule (Daily Probiotic) polyethylene glycol 3350 17 17 gm PO UD PRN Constipation 02/07/19 04/29/23 gram/dose oral powder (Miralax) primidone 50 mg tablet 150 mg PO HS 03/19/19 04/29/23 raloxifene 60 mg tablet 60 mg PO HS 03/19/19 04/29/23 clonazepam 1 mg tablet 1 mg PO TID 05/19/19 04/29/23 calcium 600 mg (as 2 tab PO HS 10/10/19 04/29/23 carbonate)-vitamin D3 5 mcg (200 unit) tablet (Calcium 600 + D(3)) food supplemt, lactose-reduced 1 ea PO BID 01/09/20 04/29/23 (Ensure oral liquid) triamcinolone acetonide 0.1 % 1 applic topical BID PRN Rash 01/17/20 04/29/23 topical cream omeprazole 20 mg tablet,delayed 20 mg PO QAM 02/27/20 04/29/23 release acetaminophen 500 mg tablet 1,000 mg PO Q6H PRN Pain 12/31/21 04/29/23 levothyroxine 50 mcg tablet 50 mcg PO QAM 12/31/21 04/29/23 dicyclomine 10 mg capsule 10 mg PO BID 11/03/22 04/29/23 famotidine 20 mg tablet 20 mg PO BID 11/03/22 04/29/23 linaclotide 145 mcg capsule 145 mcg PO QAM 11/03/22 04/29/23 (Linzess) rosuvastatin 20 mg tablet 20 mg PO QAM 11/03/22 04/29/23 Previous Rx's Medication Instructions Recorded ibuprofen 600 mg tablet 600 mg PO Q6H #20 tabs 04/29/23 Discharge Plan Visit Data Chief Complaint: Chest Pain Stated Complaint: Substernal Chest Pain ED Provider: Jovan Camacho ED Midlevel Provider: Jossie Graf Forms Stand Alone Forms: [facility] Prescriptions Prescriptions: No Action coenzyme Q10 100 mg capsule 200 mg PO HS estradiol 0.01 % (0.1 mg/gram) cream 0.01 % PV 2XWK lamotrigine 200 mg tablet 200 mg PO HS primidone 50 mg tablet 100 mg PO BID Rx Instructions: Take 100mg by mouth in the morning and at lunchtime Daily Probiotic 2.5 billion cell capsule 1 cap PO HS polyethylene glycol 3350 [Miralax] 17 gram/dose powder 17 gm PO UD PRN (Reason: Constipation) raloxifene 60 mg Tablet 60 mg PO HS primidone 50 mg Tablet 150 mg PO HS calcium carbonate-vitamin D3 [Calcium 600 + D(3)] 600 mg(1,500mg) -200 unit Tablet 2 tab PO HS triamcinolone acetonide 0.1 % cream 1 applic TOPICAL BID PRN (Reason: Rash) omeprazole 20 mg Tablet,Delayed Release (Dr/Ec) 20 mg PO QAM clonazepam 1 mg tablet 1 mg PO TID Ensure Liquid 1 ea PO BID dicyclomine 10 mg capsule 10 mg PO BID rosuvastatin 20 mg tablet 20 mg PO QAM Linzess 145 mcg capsule 145 mcg PO QAM famotidine 20 mg tablet 20 mg PO BID acetaminophen 500 mg Tablet 1,000 mg PO Q6H PRN (Reason: Pain) levothyroxine 50 mcg Tablet 50 mcg PO QAM ibuprofen 600 mg Tablet 600 mg PO Q6H Qty: 20 0RF Referrals Referrals: López Edward MD [Primary Care Provider] -
--- OUTSIDE RECORDS SUMMARY | 2024-02-26 03:37 | External Medical Summary | Summary of Care ---
Author Name Unknown Organization [facility] Address [address] [place] [facility] [place] [place] [address] Phone [phone] Care Team Providers Care Staff Technologist Name Role Phone López Edward MD Primary Care Provider + Reason for Visit * Reason Comments eRx-Medication Refill Encounter Details Date Type Department Care Team (Late st Contact Info) Description 10/13/2023 Refill Gynecology/Obstetrics [facility] [address] [place] [address] Beata Vargas MD [address] [place] [place] [address] Allergies Active Allergy Reactions Criticality Noted Date [...] as of this encounter (statuses as of 11/08/2023) Medications Medication Sig Dispensed Refills Start Date [...] mouth daily as needed for Constipation. Active Hxildfz-Movrvwo-F ethyl Jaskaran 1.2-5.7-6.3 % External Patch Apply [...] Oral Tablet Chewable Take by mouth. Active Carbidopa-Levodop a 25-100 MG Oral Tablet (Sinemet) TAKE 1/2 TABLET AT BED TIME FOR 1 WEEK, THEN ADD EXTRA 1/2 TAB EACH WEEK, UP TO 1 TAB 3 TIMES A DAY. 4 Active Estradiol 0.1 MG/GM Vaginal Cream (Estrace) USE 1/2 APPLICATORFUL INTO VAGINA 2X A WEEK 42.5 g 1 4 Active Estradiol 0.1 MG/GM Vaginal Cream (Estrace) USE 1/2 APPLICATORFUL INTO VAGINA 2X A WEEK 42.5 g 1 3 11/08/19 24 Discontinued documented as of this encounter (statuses as of 11/08/2023) Active Problems Problem Noted Date Diagnosed Date [...] as of this encounter (statuses as of 11/08/2023) Resolved Problems Problem Noted Date Diagnosed Date [...] 12/26/2017 12/24/2019 Overview: DO NOT DELETE [facility] DETECT Study: Project # [id number], Front End Ui Developer: Ihsan Rucker, PhD. SUMMARY: Goal: Establish test [...] contact study staff at ; after hours Front End Ui Developer via the [facility] four slide machine operator . Please contact study team before resolving/deleting from patients problem list. Study phone number: [phone]. Diagnosis changed due to Research Module. Go to Snapshot for study details. Encounter for examination fo r normal comparison and control in clinical research program 12/26/2017 01/21/2022 Overview: DO NOT DELETE - [facility] Study: Project # [id number], Front End Ui Developer: Napoleon Dean, MS, MPH. SUMMARY: Goal: Establish [...] contact study staff at ; after hours Front End Ui Developer via the [facility] four slide machine operator . - Please contact study team before resolving/deleting from patients problem list. Study phone number: [phone]. Diagnosis changed due to Research Module. Go [...] as of this encounter (statuses as of 11/08/2023) Immunizations Name Administration Dates Next Due 01/24/2014,11/08/2013 04/29/2014 COVID-19 mRNA, LNP-s, No Pre serve, 2-Dose Series ([employer]) 07/30/2020,07/09/2020 COVID-19, mRNA, LNP-s, PF, B ooster, [...] encounter Miscellaneous Notes * Telephone Encounter - Beata Vargas MD - 11/08/2023 4:51 PM EDTSigned Prescriptions: Disp Refills Estradiol 0.1 MG/GM Vaginal Cream (Estrace)42.5 g 1 Sig: USE 1/2 APPLICATORFUL INTO VAGINA 2X A WEEK Authorizing Provider: BEATA VARGAS * Telephone Encounter - Simona, E-Rx Ss Inbound - 10/18/2023 4:22 PM EDT Pending Prescriptions: Disp Refills Estradiol 0.1 MG/GM Vaginal Cream [Pharmac*42.5 g 1 Sig: USE 1/2 APPLICATORFUL INTO VAGINA 2X A WEEK * Telephone Encounter - Damaris Escobar LPN - 10/14/2023 9:31 AM EDT Pending Prescriptions: Disp Refills Estradiol 0.1 MG/GM Vaginal Cream [Pharmac*42.5 g 1 Sig: USE 1/2 APPLICATORFUL INTO VAGINA 2X A WEEK documented in this encounter Plan of Treatment Upcoming Encounters Date Type Department Care Team (Late st Contact Info) Description 11/21/2023 11:30 AM EDT Office Visit Neurology [address] [address] Js Lopez MD [address] [place] 12/20/2023 2:30 PM EDT Telemedicine Nutrition, Fili Gross [address] [place] [address] Noemi Raymundo, RDN [address] [place] [address] 02/20/2024 2:00 PM EDT Imaging Radiology, [facility] [address] [facility] [place] [address] 04/09/2024 2:00 PM EST Office Visit General Internal Medicine [facility] [address] [facility] [place] [address] López Edward MD [address] [facility] [place] [address] Scheduled Procedures Name Priority Associated Diagnoses Date/Ti [...] Vaccine ( season) 2023 05/22/2021, 07/30/2020, 07/09/2020 TSH 09/13/2024 09/14/2023, 12/21, 12/23/2021, Additional history exists O2 ASSESSMENT COMPLETED IN PAST YEAR FOR COPD 09/25/2024 09/26/2023 Mammogram 11/07/2024 11/08/2023, 01/2022, 12/29/2021, Additional history exists Colonoscopy 03/25/2026 03/25/2021, 07/2020, 03/25/2021, Additional history exists Colorectal Cancer Screening 03/25/2026 DTaP,Tdap,and Td Vaccines (3 - Td or Tdap) 11/24/2026 11/24/2016, 05/15/2007 Pneumococcal Vaccine: 65+ Years Completed 09/01/2015, 06/04/2014, 04/06/2007 VITAMIN D LEVEL ONCE IN A LIFETIME-USE SMARTSET# [id number] Completed 01/23/2020, 02/08/2017, 11/18/2015, Additional history exists Alpha-1 Antitrypsin Completed 08/15/2020 RETIRED - COLONOSCOPY-EVERY 5 YRS AGES 18-100 Discontinued 03/25/2021, 03/25/2021, 03/25/2021, Additional history exists Influenza Vaccine (FLU shot) Completed 03/14/2023, 03/16/2022, 02/06/2021, Additional history exists Lung Cancer Screening Completed [...] encounter Medical Devices Implanted Type Area Supervisor Screen Making Device Identifier Shelf Expiration Date Model / Serial / Lot [employer], Embosphere, 100-300 Units Implanted:Qty: 1 on 05/21/2019 by Kadeem Ware MD [place] [facility] [place]: Head [employer] INC 12/20/2021 S220GH / [id number] / [id number] [id number] Inc, Bare [place], Axium Prime, Detachable Coil System,[id number] Implanted:Qty: 1 on 05/21/2019 by Kadeem Ware MD [place] [facility] [place]: Head EV3 INC 10/02/2021 APB-1-2-HX -ES / APB-1-2-HX -ES / [id number] [id number] Inc, Bare [place], Axium Prime, Detachable Coil System,[id number] Implanted:Qty: 1 on 05/21/2019 by Kadeem Ware MD [place] [facility] [place]: Head [employer]3 INC 03/06/2021 APB-1-3-HX -ES / APB-1-3-HX -ES / [id number] documented as of this encounter Advance Directives * Full Code (Latest Code Status on File) Date Activated Date Inactivated Comments 05/19/2019 8:38 AM 05/28/2019 7:54 PM This order r eflects the patients wishes and were consensually agreed upon. Care Teams Staff Technologist Relationship Specialty Start Date End Date López Edward MD [address] [facility] [place] [address] PCP - General Internal Medicine 07/14/18 documented as of this encounter
--- OUTSIDE RECORDS SUMMARY | 2024-02-26 03:37 | External Medical Summary | Summary of Care ---
Author Name Unknown Organization [facility] Address [address] [place] [address] Phone [phone] Care Team Providers Care Foreign Diplomat Name Role Phone López Edward MD Primary Care Provider + Reason for Visit * Reason Onset Date Comments Test Results 11/09/2023 Encounter Details Date Type Department Care Team (Late st Contact Info) Description 11/09/2023 Telephone General Internal Medicine [facility] [address] [facility] [place] [id number] López Edward MD [address] [place] [address] Test Results Allergies Active Allergy Reactions Criticality [...] as of this encounter (statuses as of 11/10/2023) Medications Medication Sig Dispensed Refills Start Date [...] mouth daily as needed for Constipation. Active Lqbltxb-Kdnwetw-Lfw hyl Jaskaran 1.2-5.7-6.3 % External Patch Apply [...] as of this encounter (statuses as of 11/10/2023) Active Problems Problem Noted Date Diagnosed Date [...] as of this encounter (statuses as of 11/10/2023) Resolved Problems Problem Noted Date Diagnosed Date [...] DELETE [facility] DETECT Study: Project # [id number], Frame Trimmer: Ihsan Rucker, PhD. SUMMARY: Goal: Establish test [...] contact study staff at ; after hours Frame Trimmer via the [facility] butadiene convertor operator . Please contact study team before resolving/deleting from patients problem list. Study phone number: [phone]. Diagnosis changed due to Research Module. Go to Snapshot for study details. Encounter for examination fo r normal comparison and control in clinical research program 12/26/2017 01/21/2022 Overview: [facility] NOT DELETE [facility] Study: Project # [id number], Frame Trimmer: Napoleon Dean, MS, MPH. SUMMARY: Goal: Establish [...] contact study staff at ; after hours Frame Trimmer via the [facility] butadiene convertor operator . - Please contact study team before resolving/deleting from patients problem list. Study phone number: [phone]. Diagnosis changed due to Research Module. Go [...] as of this encounter (statuses as of 11/10/2023) Immunizations Name Administration Dates Next Due 01/24/2014,11/08/2013 [...] - Marce Washburn MED ASSIST - 11/09/2023 3:49 PM EDT ----- Message [...] [place] [id number] Js Lopez MD [address] [facility] [place] [address] 12/20/2023 2:30 PM EDT Telemedicine [facility], [facility] [address] [place] [address] Noemi Raymundo, ARMANI [address] [place] [address] 02/20/2024 2:00 PM EDT Imaging Radiology, [address] [place] [address] 04/09/2024 2:00 PM EST Office Visit General Internal Medicine [facility] [address] [place] [address] López Edward MD [address] [facility] [place] [address] Scheduled Procedures Name Priority Associated Diagnoses Date/Ti [...] D LEVEL ONCE IN A LIFETIME-USE SMARTSET# 61636 Completed 01/23/2020, 02/08/2017, 11/18/2015, Additional history exists [...] this encounter Medical Devices Implanted Type Area Nurse Ob Device Identifier Shelf Expiration Date Model / Serial / Lot [employer], Embosphere, 100-300 Units Implanted:Qty: 1 on 05/21/2019 by Kadeem Ware MD at OR [facility] N/A: Head [employer] 12/20/2021 S220GH / [id number] / [id number] [id number], Bare [place], Axium Prime, Detachable Coil System,[id number] Implanted:Qty: 1 on 05/21/2019 by Kadeem Ware MD at OR [facility] N/A: Head [employer] 10/02/2021 APB-1-2-HX -ES / APB-1-2-HX -ES / [id number] [id number], Bare [place], Axium Prime, Detachable Coil System,[id number] Implanted:Qty: 1 on 05/21/2019 by Kadeem Ware MD at OR [facility] N/A: Head [employer] 03/06/2021 APB-1-3-HX -ES / APB-1-3-HX -ES / [id number] documented as of this encounter Advance Directives * Full Code (Latest Code Status on File) Date Activated Date Inactivated Comments 05/19/2019 8:38 AM 05/28/2019 7:54 PM This order r eflects the patients wishes and were consensually agreed upon. Care Teams Foreign Diplomat Relationship Specialty Start Date End Date López Edward MD [address] [facility] [place] [address] PCP - General Internal Medicine 07/14/18 documented as of this encounter
--- OUTSIDE RECORDS SUMMARY | 2024-02-26 03:37 | External Medical Summary | Summary of Care ---
Author Name Unknown Organization [facility] Address [address] [place] [address] Phone [phone] Care Team Providers Care Repertoire Manager Name Role Phone López Edward MD Primary Care Provider + Reason for Visit * Reason Onset Date Comments Test Results 11/09/2023 Encounter Details Date Type Department Care Team (Late st Contact Info) Description 11/09/2023 Telephone General Internal Medicine [facility] [address] [facility] [place] [phone] López Edward MD [address] [place] [address] Test Results Allergies Active Allergy Reactions Criticality [...] as of this encounter (statuses as of 11/17/2023) Medications Medication Sig Dispensed Refills Start Date [...] mouth daily as needed for Constipation. Active Bwgdesu-Bszzuno-Quf hyl Jaskaran 1.2-5.7-6.3 % External Patch Apply [...] as of this encounter (statuses as of 11/17/2023) Active Problems Problem Noted Date Diagnosed Date [...] as of this encounter (statuses as of 11/17/2023) Resolved Problems Problem Noted Date Diagnosed Date [...] [facility] [place] Study: Project # [id number], Stockroom Associate: Ihsan Rucker, PhD. SUMMARY: Goal: Establish test [...] contact study staff at ; after hours Stockroom Associate via the [facility] thread tool grinder set up operator . Please contact study team before resolving/deleting from patients problem list. Study phone number: [phone]. Diagnosis changed due to Research Module. Go to Snapshot for study details. Encounter for examination fo r normal comparison and control in clinical research program 12/26/2017 01/21/2022 Overview: [facility] NOT DELETE [facility] Study: Project # [id number], Stockroom Associate: Napoleon Dean, MS, MPH. SUMMARY: Goal: Establish [...] contact study staff at ; after hours Stockroom Associate via the [facility] hospital thread tool grinder set up operator . - Please contact study team before resolving/deleting from patients problem list. Study phone number: [phone]. Diagnosis changed due to Research Module. Go [...] as of this encounter (statuses as of 11/17/2023) Immunizations Name Administration Dates Next Due 01/24/2014,11/08/2013 [...] encounter Miscellaneous Notes * Telephone Encounter - Tash Humphrey OSA [...] [place] [id number] Js Lopez MD [address] [facility] [place] [address] 12/20/2023 2:30 PM EDT Telemedicine Nutrition, [facility] [address] [place] [address] Noemi Raymundo, RDN [address] [place] [address] 02/20/2024 2:00 PM EDT Imaging Radiology, [facility] [address] [facility] [place] [address] 04/09/2024 2:00 PM EST Office Visit General Internal Medicine [facility] [address] [facility] [place] [address] López Edward MD [address] [facility] [place] [id number] Scheduled Procedures Name Priority Associated Diagnoses Date/Ti [...] D LEVEL ONCE IN A LIFETIME-USE SMARTSET# 88830 Completed 01/23/2020, 02/08/2017, 11/18/2015, Additional history exists [...] this encounter Medical Devices Implanted Type Area Auto Body Repairman Device Identifier Shelf Expiration Date Model / Serial / Lot [employer], Embosphere, 100-300 Units Implanted:Qty: 1 on 05/21/2019 by Kadeem Ware MD at OR [facility] N/A: Head [employer] 12/20/2021 S220GH / S220GH / [id number] [id number], Bare [place], Axium Prime, Detachable Coil System,[id number] Implanted:Qty: 1 on 05/21/2019 by Kadeem Ware MD at OR [facility] N/A: Head [employer] 10/02/2021 APB-1-2-HX -ES / APB-1-2-HX -ES / [id number] [employer], Bare [place], Axium Prime, Detachable Coil System,[id number] Implanted:Qty: 1 on 05/21/2019 by Kadeem Ware MD at OR [facility] N/A: Head [employer] 03/06/2021 APB-1-3-HX -ES / APB-1-3-HX -ES / [id number] documented as of this encounter Advance Directives * Full Code (Latest Code Status on File) Date Activated Date Inactivated Comments 05/19/2019 8:38 AM 05/28/2019 7:54 PM This order r eflects the patients wishes and were consensually agreed upon. Care Teams Repertoire Manager Relationship Specialty Start Date End Date López Edward MD [address] [facility], [place] [phone] PCP - General Internal Medicine 07/14/18 documented as of this encounter
--- OUTSIDE RECORDS SUMMARY | 2024-02-26 03:37 | External Medical Summary | Summary of Care ---
Author Name Unknown Organization [facility] Address [address] [place] [address] Phone [phone] Care Team Providers Care Family Medicine Resident Name Role Phone López Edward MD Primary Care Provider + Reason for Visit * Reason Onset Date Comments Medication Refill 10/21/2023 Encounter Details Date Type Department Care Team (Late st Contact Info) Description 10/21/2023 Refill [facility] [address] [place] [address] Js Lopez MD [address] [place] [address] Essential tremor Allergies Active Allergy [...] as of this encounter (statuses as of 10/24/2023) Medications Medication Sig Dispensed Refills Start Date [...] mouth daily as needed for Constipation. Active Cxhygxb-Ohslbzr-Byn hyl Jaskaran 1.2-5.7-6.3 % External Patch Apply [...] large muscle every 4 weeks. 03/16/2022 Active Estradiol 0.1 MG/GM Vaginal Cream (Estrace) USE 1/2 APPLICATORFUL INTO VAGINA 2X A WEEK 42.5 g 1 10/04/2022 Active Famotidine 20 MG Oral Tablet (Pepcid)Indications [...] AT BEDTIME 630 Tablet 3 07/25/2023 Active clonazePAM 1 MG Oral Tablet (KlonoPIN)Indicatio ns:Essential tremor TAKE 1 TABLET BY MOUTH THREE TIMES A DAY 90 Tablet 2 07/26/2023 Active Raloxifene HCl 60 MG Oral Tablet (Evista)Indications :Osteoporosis TAKE 1 TABLET BY MOUTH EVERYDAY AT BEDTIME 90 Tablet 3 08/26/2023 Active Metamucil Fiber Oral Tablet Chewable Take by mouth. Active Carbidopa-Levodopa 25-100 MG Oral Tablet (Sinemet) TAKE 1/2 TABLET AT BED TIME FOR 1 WEEK, THEN ADD EXTRA 1/2 TAB EACH WEEK, UP TO 1 TAB 3 TIMES A DAY. 09/22/2023 Active documented as of this encounter (statuses as of 10/24/2023) Active Problems Problem Noted Date Diagnosed Date [...] as of this encounter (statuses as of 10/24/2023) Resolved Problems Problem Noted Date Diagnosed Date [...] program 12/26/2017 12/24/2019 Overview: [facility] Study: Project # [id number], Chemist Biological: Ihsan Rucker, PhD. SUMMARY: Goal: Establish test [...] contact study staff at ; after hours Chemist Biological via the [facility] hospital barrel rib matting machine operator . Please contact study team before resolving/deleting from patients problem list. Study phone number: [phone]. Diagnosis changed due to Research Module. Go to Snapshot for study details. Encounter for examination fo r normal comparison and control in clinical research program 12/26/2017 01/21/2022 Overview: DO NOT DELETE - [facility] DETECT Study: Project # [id number], Chemist Biological: Napoleon Dean, MS, MPH. SUMMARY: Goal: Establish [...] contact study staff at ; after hours Chemist Biological via the [facility] hospital barrel rib matting machine operator . - Please contact study team before resolving/deleting from patients problem list. Study phone number: [phone]. Diagnosis changed due to Research Module. Go [...] as of this encounter (statuses as of 10/24/2023) Immunizations Name Administration Dates Next Due 01/24/2014,11/08/2013 [...] Telephone Encounter - Paradise Winchester LPN - 10/24/2023 9:44 AM EDT Pending Prescriptions: Disp Refills clonazePAM 1 MG Oral Tablet (KlonoPIN) 90 Tab*2 Sig: TAKE 1 TABLET BY MOUTH THREE TIMES A DAY * Addendum Note - Shy Landry OSA - 10/21/2023 4:33 PM EDTAddended by: SHY LANDRY on: 10/21/2023 04:33 PM Modules accepted: Orders * Telephone Encounter - Shy Landry OSA - 10/21/2023 4:32 PM EDT Patient is up to date for office visits. Pending Prescriptions: Disp Refills clonazePAM 1 MG Oral Tablet (KlonoPIN) 90 Tab*2 Sig: TAKE 1 TABLET BY MOUTH THREE TIMES A DAY Last Visit: 06/27/2023 (in office), Visit date not found (telemedicine) Next Visit: 11/04/2023 If no future appointments scheduled, and last appointment is greater than a year ago, please schedule patient for a follow-up appointment Last date the medication was ordered: Pharmacy: [id number] [address] [place] [address] Is this request for a controlled substance?Yes, and Urine Drug Screen was NOT completed Urine Drug Screen: Results for orders placed [...] 02:39 PM ALT 16 11/12/2019 01:20 PM * Telephone Encounter - Pradeep Glass language path - 10/21/2023 4:29 PM EDT Pt calling for neuro refill. Warm transferred to specialty line. Thank you, Pradeep Glass Tear Down Man I [facility] ([facility]formerly Telepharmacy) 10/21/2023,4:31 PM documented in this encounter Plan of Treatment Upcoming Encounters Date Type Department Care Team (Late st Contact Info) Description 10/26/2023 2:15 PM EDT Imaging Radiology [address] [facility] [place] [address] 11/04/2023 1:30 PM EDT Office Visit Neurology, [place] [address] [place] [address] Js Lopez MD [address] [place] [address] 12/20/2023 2:30 PM EDT [facility] 132 [facility] [place] [address] Noemi Raymundo, ARMANI 132 [facility] [place] [address] 02/20/2024 2:00 PM EDT Imaging Radiology, [facility] [address] [facility] [place] [address] 04/09/2024 2:00 PM EST Office Visit General Internal Medicine [facility] [address] [place] [address] López Edward MD 200 [facility] [place] [address] Scheduled Procedures Name Priority Associated Diagnoses Date/Ti me COLONOSCOPY FLEXIBLE PROXIMA L DIAGNOSTIC Recall History of colonic polyps Health Maintenance Due Date Last Done Comments Cologuard 1994 Sigmoidoscopy 1994 Zoster Vaccines (1 of 2) 1999 Fecal Occult Blood Test 08/16/2014 08/17/19 14, 04/23/2011, 05/14/2001, Additional history exists DXA Scan 08/05/2021 08/06/2019, 1006/2016, 08/20/2015, Additional history exists Mammogram 12/29/2022 12/29/2021, 01/2022, 11/18/2020, Additional history exists COVID-19 Vaccine ( season) 2023 05/22/2021, 07/30/2020, 07/09/2020 TSH 09/13/2024 09/14/2023, 12/21, 12/23/2021, Additional history exists O2 ASSESSMENT COMPLETED IN PAST YEAR FOR COPD 09/25/2024 09/26/2023 Colonoscopy 03/25/2026 03/25/2021, 07/2020, 03/25/2021, Additional history exists Colorectal Cancer Screening 03/25/2026 DTaP,Tdap,and Td Vaccines (3 - Td or Tdap) 11/24/2026 11/24/2016, 05/15/2007 Pneumococcal Vaccine: 65+ Years Completed 09/01/2015, 06/04/2014, 04/06/2007 VITAMIN D LEVEL ONCE IN A LIFETIME-USE SMARTSET# [id number] Completed 01/23/2020, 02/08/2017, 11/18/2015, Additional history exists Alpha-1 Antitrypsin Completed 08/15/2020 RETIRED - COLONOSCOPY-EVERY 5 YRS AGES 18-100 Discontinued 03/25/2021, 03/25/2021, 03/25/2021, Additional history exists Lung Cancer Screening Completed 06/29/2021 , 06/30/2020, 05/19/2019, Additional history exists Influenza Vaccine (FLU shot) Completed 03/14/2023, 03/16/2022, 02/06/2021, Additional history exists GARDASIL-HPV IMMUNIZATION SERIES Aged Out No longer eligible based on patient's age to complete this topic Hepatitis B Aged Out No longer eligi ble based on patient's age to complete this topic MENINGOCOCCAL (MENACTRA/MENVEO) Aged Out No longer eligible based on patient's age to complete this topic documented as of this encounter Medical Devices Implanted Type Area Scarrer Device Identifier Shelf Expiration Date Model / Serial / Lot [employer] Systems Inc, Embosphere, 100-300 Units Implanted:Qty: 1 on 05/21/2019 by Kadeem Ware MD at OR [facility] N/A: Head [employer] INC 12/20/2021 S220GH / [id number] / [id number] Ev3 Inc, Bare [place], Axium Prime, Detachable Coil System,[id number] Implanted:Qty: 1 on 05/21/2019 by Kadeem Ware MD at OR [facility] N/A: Head [employer] INC 10/02/2021 APB-1-2-HX -ES / APB-1-2-HX -ES / [id number] [id number] Inc, Bare [place], Axium Prime, Detachable Coil System,[id number] Implanted:Qty: 1 on 05/21/2019 by Kadeem Ware MD at OR [facility] N/A: Head [employer] INC 03/06/2021 APB-1-3-HX -ES / APB-1-3-HX -ES / [id number] documented as of this encounter Visit Diagnoses Diagnosis Essential tremor Essential and other specified forms of tremor documented in this encounter Advance Directives * Full Code (Latest Code Status on File) Date Activated Date Inactivated Comments 05/19/2019 8:38 AM 05/28/2019 7:54 PM This order r eflects the patients wishes and were consensually agreed upon. Care Teams Family Medicine Resident Relationship Specialty Start Date End Date López Edward MD 200 [place] [address] PCP - General Internal Medicine 07/14/18 documented as of this encounter
--- OUTSIDE RECORDS SUMMARY | 2024-02-26 03:37 | External Medical Summary | Summary of Care ---
Author Name Unknown Organization [facility] Address [address] [place] [address] Phone [phone] Care Team Providers Care Retail Manager In Training Name Role Phone López Edward MD Primary Care Provider + Reason for Visit * Reason Onset Date Comments Test Results 11/01/2023 Encounter Details Date Type Department Care Team (Late st Contact Info) Description 11/01/2023 Telephone Thoracic Surg [place] [address] [place], [place] [id number] Lily Falcon, RN Test Results Allergies Active Allergy Reactions Criticality [...] as of this encounter (statuses as of 11/02/2023) Medications Medication Sig Dispensed Refills Start Date End Date Status VITAMIN D 1000 UNIT PO CAPSIndications:Vit fritz D deficiency 1 capsule daily 30 08/12/2009 Active LAMICTAL 200 MG PO TABS [...] mouth daily as needed for Constipation. Active Btniqso-Pyebrce-Ahi hyl Jaskaran 1.2-5.7-6.3 % External Patch Apply [...] TAB 3 TIMES A DAY. 09/22/2023 Active clonazePAM 1 MG Oral Tablet (KlonoPIN)Indicatio ns:Essential tremor TAKE 1 TABLET BY MOUTH THREE TIMES A DAY 90 Tablet 2 10/24/2023 Active documented as of this encounter (statuses as of 11/02/2023) Active Problems Problem Noted Date Diagnosed Date [...] as of this encounter (statuses as of 11/02/2023) Resolved Problems Problem Noted Date Diagnosed Date [...] program 12/26/2017 12/24/2019 Overview: DO NOT DELETE Software 2000 DETECT Study: Project # [id number], Business Administration Program Chair: Ihsan Rucker, PhD. SUMMARY: Goal: Establish test [...] contact study staff at ; after hours Business Administration Program Chair via the [facility] fagoting machine operator . Please contact study team before resolving/deleting from patients problem list. Study phone number: [phone]. Diagnosis changed due to Research Module. Go to Snapshot for study details. Encounter for examination fo r normal comparison and control in clinical research program 12/26/2017 01/21/2022 Overview: DO NOT DELETE - Software 2000 DETECT Study: Project # [id number], Business Administration Program Chair: Napoleon Dean, MS, MPH. SUMMARY: Goal: Establish [...] contact study staff at ; after hours Business Administration Program Chair via the [facility] hospital fagoting machine operator . - Please contact study team before resolving/deleting from patients problem list. Study phone number: [phone]. Diagnosis changed due to Research Module. Go [...] Pain in limb 2005 10/26/2016 GENERAL OSTEOARTHROSIS 11/22/200209/134 Essential tremor 07/10/2001 01/17/2018 Major depressive disorder Overview: ICD-10 update of inactive term Bipolar disorder 05/14/2013 Tobacco use disorder 017 Bipolar disorder 07/06/2013 documented as of this encounter (statuses as of 11/02/2023) Immunizations Name Administration Dates Next Due 01/24/2014,11/08/2013 [...] Telephone Encounter - Roberto Cooper OSA - 11/02/2023 11:00 AM EDT Scheduled * Telephone Encounter - Marce Washburn MED ASSIST - 11/01/2023 11:47 AM EDT Patient aware and verbalized understanding Please assist with scheduling * Telephone Encounter - López Edward MD - 11/01/2023 10:17 AM EDT Please call, had a CT scan for lung cancer screen, no lung nodules, but has a indeterminate right breast mass. Needs to have mammo and u/s of this to see what it is and determine further steps * Telephone Encounter - Lily Falcon RN - 11/01/2023 8:56 AM EDT Lung Cancer Screening Program (LCSP) Results Call Summary 11/01/2023 López Edward MD - Your patient had an abnormal incidental finding on Low Dose CT Scan (LDCT). Please review the LDCT scan EPIC Chart Review: Imaging and follow through with evaluation of theincidental finding as clinically indicated. Lily Falcon, KATI Lung Cancer Screening Rn Cardiology [phone] ([id number]) documented in this encounter Plan of Treatment Upcoming Encounters Date Type Department Care Team (Late st Contact Info) Description 11/08/2023 11:30 AM EDT Imaging Radiology [address] 132 [place] [address] 11/08/2023 12:00 PM EDT Imaging Radiology [facility] 132 [place] [address] 11/21/2023 11:30 AM EDT Office Visit Neurology [address] [phone] Js Lopez MD [address] [facility] [place] [id number] 12/20/2023 2:30 PM EDT Telemedicine [facility], [facility] 132 [place] [address] Noemi Raymundo, RDN 132 [place] [address] 02/20/2024 2:00 PM EDT Imaging Radiology, [address] [place] [address] 04/09/2024 2:00 PM EST Office Visit General Internal Medicine [facility] [place] [address] [place] [address] López Edward MD [address] [facility] [place] [address] Scheduled Orders Name Type Priority Associated Diagnoses Orde r Schedule MAMMOGRAM DIAGNOSTIC BILATERAL Medical Imaging Routine Mass of right breast, unspecified quadrant Expected: 11/01/2023, Expires: 11/30/2024 US BREAST LIMITED RIGHT Medical Imaging Routine Mass of right breast, unspecified quadrant Expected: 11/01/2023, Expires: 11/30/2024 Scheduled Procedures Name Priority Associated Diagnoses Date/Ti me COLONOSCOPY FLEXIBLE PROXIMA L DIAGNOSTIC Recall History of colonic polyps Health Maintenance Due Date Last Done Comments Cologuard 1994 Sigmoidoscopy 1994 Zoster Vaccines (1 of 2) 1999 Fecal Occult Blood Test 08/16/2014 08/17/19 14, 04/23/2011, 05/14/2001, Additional history exists DXA Scan 08/05/2021 08/06/2019, 1006/2016, 08/20/2015, Additional history exists Mammogram 12/29/2022 12/29/2021, 080 01/2022, 11/18/2020, Additional history exists COVID-19 Vaccine [...] D LEVEL ONCE IN A LIFETIME-USE SMARTSET# [id number] Completed 01/23/2020, 02/08/2017, 11/18/2015, Additional history exists [...] this encounter Medical Devices Implanted Type Area Solar Installation Foreman Device Identifier Shelf Expiration Date Model / Serial / Lot Spine[employer]ision Medical Systems Inc, Embosphere, 100-300 Units Implanted:Qty: 1 on 05/21/2019 by Kadeem Ware MD at OR [facility] N/A: Head [employer] INC 12/20/2021 S220GH / [id number] / [id number] [id number] Inc, Bare [place], Axium Prime, Detachable Coil System,[id number] Implanted:Qty: 1 on 05/21/2019 by Kadeem Ware MD at OR [facility] N/A: Head [employer]3 INC 10/02/2021 APB-1-2-HX -ES / APB-1-2-HX -ES / [id number] [id number] Inc, Bare [place], Axium Prime, Detachable Coil System,[id number] Implanted:Qty: 1 on 05/21/2019 by Kadeem Ware MD at OR [facility] N/A: Head [employer] INC 03/06/2021 APB-1-3-HX -ES / APB-1-3-HX -ES / [id number] documented as of this encounter Visit Diagnoses Diagnosis Mass of right breast, unspecified quadrant- Primary documented in this encounter Advance Directives * Full Code (Latest Code Status on File) Date Activated Date Inactivated Comments 05/19/2019 8:38 AM 05/28/2019 7:54 PM This order r eflects the patients wishes and were consensually agreed upon. Care Teams Retail Manager In Training Relationship Specialty Start Date End Date López Edward MD 200 [facility] [place] [address] PCP - General Internal Medicine 07/14/18 documented as of this encounter
--- OUTSIDE RECORDS SUMMARY | 2024-02-26 03:37 | External Medical Summary | Summary of Care ---
Author Name Unknown Organization [facility] Address [address] [place] [address] Phone [phone] Care Team Providers Care Planer Chain Offbearer Name Role Phone López Edward MD Primary Care Provider + Reason for Visit * Reason Onset Date Comments Test Results 11/09/2023 Encounter Details Date Type Department Care Team (Late st Contact Info) Description 11/09/2023 Telephone General Internal Medicine [facility] 200 [facility] [place] [phone] López Edward MD [address] [place] [place] [address] Test Results Allergies Active Allergy Reactions Criticality [...] as of this encounter (statuses as of 11/09/2023) Medications Medication Sig Dispensed Refills Start Date [...] mouth daily as needed for Constipation. Active Gcebavk-Ehnvxqo-Fpw hyl Jaskaran 1.2-5.7-6.3 % External Patch Apply [...] as of this encounter (statuses as of 11/09/2023) Active Problems Problem Noted Date Diagnosed Date [...] as of this encounter (statuses as of 11/09/2023) Resolved Problems Problem Noted Date Diagnosed Date [...] The Chronically Ill DETECT Study: Project # [id number], Airline Ticket Agent: Ihsan Rucker, PhD. SUMMARY: Goal: Establish test [...] contact study staff at ; after hours Airline Ticket Agent via the [facility] clasp machine operator . Please contact study team before resolving/deleting from patients problem list. Study phone number: [phone]. Diagnosis changed due to Research Module. Go to Snapshot for study details. Encounter for examination fo r normal comparison and control in clinical research program 12/26/2017 01/21/2022 Overview: [facility] DE[facility] Study: Project # [id number], Airline Ticket Agent: Napoleon Dean, MS, MPH. SUMMARY: Goal: Establish [...] contact study staff at ; after hours Airline Ticket Agent via the [facility] hospital clasp machine operator . - Please contact study team before resolving/deleting from patients problem list. Study phone number: [phone]. Diagnosis changed due to Research Module. Go [...] as of this encounter (statuses as of 11/09/2023) Immunizations Name Administration Dates Next Due 01/24/2014,11/08/2013 [...] - Marce Washburn MED JANELLE - 11/09/2023 3:52 PM EDT Patient aware [...] 11/21/2023 11:30 AM EDT Office Visit Neurology [address] [place] [phone] Js Lopez MD [address] [place] [address] 12/20/2023 2:30 PM EDT Telemedicine [facility], [facility] [address] [facility] [place] [address] Noemi Raymundo, ARMANI [address] [facility] [place] [address] 02/20/2024 2:00 PM EDT Imaging Radiology, [facility] [address] [place] [address] 04/09/2024 2:00 PM EST Office Visit General Internal Medicine [facility] [place] [address] [place] [address] López Edward MD [address] [facility] [place] [address] Scheduled Procedures Name Priority Associated Diagnoses Date/Ti [...] FOR COPD 09/25/2024 09/26/2023 Mammogram 11/07/2024 11/08/2023, 08/0 01/2022, 12/29/2021, Additional history exists Colonoscopy 03/25/2026 03/25/2021, 07/2020, 03/25/2021, Additional history exists Colorectal Cancer Screening 03/25/2026 DTaP,Tdap,and Td Vaccines (3 - Td or Tdap) 11/24/2026 11/24/2016, 05/15/2007 Pneumococcal Vaccine: 65+ Years Completed 09/01/2015, 06/04/2014, 04/06/2007 VITAMIN D LEVEL ONCE IN A LIFETIME-USE SMARTSET# [id number] Completed 01/23/2020, 02/08/2017, 11/18/2015, Additional history exists [...] this encounter Medical Devices Implanted Type Area Computer Hardware Designer Device Identifier Shelf Expiration Date Model / Serial / Lot [employer]andong [employer] Inc, Embosphere, 100-300 Units Implanted:Qty: 1 on 05/21/2019 by Kadeem Ware MD at OR [facility] N/A: Head [employer] INC 12/20/2021 S220GH / S220GH / [id number] [id number] Inc, Bare [place], Axium Prime, Detachable Coil System,[id number] Implanted:Qty: 1 on 05/21/2019 by Kadeem Ware MD at OR [facility] N/A: Head EV3 INC 10/02/2021 APB-1-2-HX -ES / APB-1-2-HX -ES / [id number] [id number] Inc, Bare [place], Axium Prime, Detachable Coil System,[id number] Implanted:Qty: 1 on 05/21/2019 by Kadeem Ware MD at OR [facility] N/A: Head [employer] INC 03/06/2021 APB-1-3-HX -ES / APB-1-3-HX -ES / [id number] documented as of this encounter Advance Directives * Full Code (Latest Code Status on File) Date Activated Date Inactivated Comments 05/19/2019 8:38 AM 05/28/2019 7:54 PM This order r eflects the patients wishes and were consensually agreed upon. Care Teams Planer Chain Offbearer Relationship Specialty Start Date End Date López Edward MD 200 [facility] [place] [address] PCP - General Internal Medicine 07/14/18 documented as of this encounter
--- OUTSIDE RECORDS SUMMARY | 2024-02-26 03:37 | External Medical Summary | Summary of Care ---
Author Name Unknown Organization [facility] Address [address] [place] [address] Phone [phone] Care Team Providers Care Deputy County Counsel Name Role Phone López Edward MD Primary Care Provider + Reason for Visit * Reason Onset Date Comments Test Results 11/09/2023 Encounter Details Date Type Department Care Team (Late st Contact Info) Description 11/09/2023 Telephone General Internal Medicine [facility] 200 [facility] [place] [phone] López Edward MD [address] [place] [address] Test Results Allergies Active Allergy Reactions Criticality [...] mouth daily as needed for Constipation. Active Zzsuhdv-Ydyarim-Wpp hyl Jaskaran 1.2-5.7-6.3 % External Patch Apply [...] DELETE [facility] DETECT Study: Project # [id number], Manager Meat: Ihsan Rucker, PhD. SUMMARY: Goal: Establish test [...] contact study staff at ; after hours Manager Meat via the [facility] multilith operator . Please contact study team before resolving/deleting from patients problem list. Study phone number: [phone]. Diagnosis changed due to Research Module. Go to Snapshot for study details. Encounter for examination fo r normal comparison and control in clinical research program 12/26/2017 01/21/2022 Overview: [facility] Study: Project # [id number], Manager Meat: Napoleon Dean, MS, MPH. SUMMARY: Goal: Establish [...] contact study staff at ; after hours Manager Meat via the [facility] multilith operator . - Please contact study team before resolving/deleting from patients problem list. Study phone number: [phone]. Diagnosis changed due to Research Module. Go [...] [id number] Js Lopez MD [address] [facility] [place] [address] 12/20/2023 2:30 PM EDT Telemedicine Nutrition, [facility] [address] [place] [address] Noemi Raymundo, RDN [address] [place] [address] 02/20/2024 2:00 PM EDT Imaging Radiology, [facility] [address] [facility] [place] [address] 04/09/2024 2:00 PM EST Office Visit General Internal Medicine [facility] 200 [facility] [place] [address] López Edward MD 200 [facility] [place] [address] Scheduled Procedures Name Priority Associated Diagnoses Date/Ti [...] D LEVEL ONCE IN A LIFETIME-USE SMARTSET# 65948 Completed 01/23/2020, 02/08/2017, 11/18/2015, Additional history exists [...] this encounter Medical Devices Implanted Type Area Hydrology Teacher Device Identifier Shelf Expiration Date Model / Serial / Lot Mash[employer] Inc, Embosphere, 100-300 Units Implanted:Qty: 1 on 05/21/2019 by Kadeem Ware MD at OR [facility] N/A: Head [employer] 12/20/2021 S220GH / [id number] / [id number] [id number] Inc, Bare [place], Axium Prime, Detachable Coil System,[id number] Implanted:Qty: 1 on 05/21/2019 by Kadeem Ware MD at OR [facility] N/A: Head [employer] INC 10/02/2021 APB-1-2-HX -ES / APB-1-2-HX -ES / [id number] [id number] Inc, Bare [place], Axium Prime, Detachable Coil System,[id number] Implanted:Qty: 1 on 05/21/2019 by Kadeem Ware MD at OR [facility] N/A: Head [employer] INC 03/06/2021 APB-1-3-HX -ES / APB-1-3-HX -ES / [id number] documented as of this encounter Advance Directives * Full Code (Latest Code Status on File) Date Activated Date Inactivated Comments 05/19/2019 8:38 AM 05/28/2019 7:54 PM This order r eflects the patients wishes and were consensually agreed upon. Care Teams Deputy County Counsel Relationship Specialty Start Date End Date López Edward MD 200 [facility], [place] [phone] PCP - General Internal Medicine 07/14/18 documented as of this encounter
--- OUTSIDE RECORDS SUMMARY | 2024-02-26 03:37 | External Medical Summary | Summary of Care ---
Author Name Unknown Organization [facility] Address [address] [place] [address] Phone [phone] Care Team Providers Care Gasoline Pump Installer Name Role Phone López Edward MD Primary Care Provider + Reason for Visit * Reason Onset Date Comments Test Results 11/09/2023 Encounter Details Date Type Department Care Team (Late st Contact Info) Description 11/09/2023 Telephone General Internal Medicine [facility] 200 [facility] [place] [phone] López Edward MD [address] [place] [address] Test Results Allergies Active Allergy Reactions Criticality [...] mouth daily as needed for Constipation. Active Bxogjnm-Scwluup-Qvn hyl Jaskaran 1.2-5.7-6.3 % External Patch Apply [...] [facility] DETECT Study: Project # [id number], Installment Account Checker: Ihsan Rucker, PhD. SUMMARY: Goal: Establish test [...] contact study staff at ; after hours Installment Account Checker via the [facility] power nut runner operator . Please contact study team before resolving/deleting from patients problem list. Study phone number: [phone]. Diagnosis changed due to Research Module. Go to Snapshot for study details. Encounter for examination fo r normal comparison and control in clinical research program 12/26/2017 01/21/2022 Overview: DO NOT DELETE - [facility] DET[facility] Study: Project # [id number], Installment Account Checker: Napoleon Dean, MS, MPH. SUMMARY: Goal: Establish [...] contact study staff at ; after hours Installment Account Checker via the [facility] power nut runner operator . - Please contact study team before resolving/deleting from patients problem list. Study phone number: [phone]. Diagnosis changed due to Research Module. Go [...] encounter Miscellaneous Notes * Telephone Encounter - López Edward MD [...] Neurology [address] [place] [id number] Js Lopez MD [address] [facility] [place] [address] 12/20/2023 2:30 PM EDT Telemedicine Nutrition, [facility] [address] [facility] [place] [address] Noemi Raymundo, ARMANI [address] [place] [address] 02/20/2024 2:00 PM EDT Imaging Radiology, [address] [place] [address] 04/09/2024 2:00 PM EST Office Visit General Internal Medicine [facility] 200 [place] [address] López Edward MD 200 [place] [address] Scheduled Procedures Name Priority Associated Diagnoses Date/Ti [...] D LEVEL ONCE IN A LIFETIME-USE SMARTSET# 44928 Completed 01/23/2020, 02/08/2017, 11/18/2015, Additional history exists [...] this encounter Medical Devices Implanted Type Area Push Bench Operator Helper Device Identifier Shelf Expiration Date Model / Serial / Lot Omnigy Inc, Embosphere, 100-300 Units Implanted:Qty: 1 on 05/21/2019 by Kadeem Ware MD at OR [facility] N/A: Head [employer] 12/20/2021 S220GH / S220GH / [id number] [id number] Inc, Bare [place], Axium Prime, Detachable Coil System,[id number] Implanted:Qty: 1 on 05/21/2019 by Kadeem Ware MD at OR [facility] N/A: Head [employer] INC 10/02/2021 APB-1-2-HX -ES / APB-1-2-HX -ES / [id number] [id number] Inc, Bare [place], Axium Prime, Detachable Coil System,[id number] Implanted:Qty: 1 on 05/21/2019 by Kadeem Ware MD at OR [facility] N/A: Head [employer] 03/06/2021 APB-1-3-HX -ES / APB-1-3-HX -ES / [id number] documented as of this encounter Advance Directives * Full Code (Latest Code Status on File) Date Activated Date Inactivated Comments 05/19/2019 8:38 AM 05/28/2019 7:54 PM This order r eflects the patients wishes and were consensually agreed upon. Care Teams Gasoline Pump Installer Relationship Specialty Start Date End Date López Edward MD [address] [place] [address], [place] [address] PCP - General Internal Medicine 07/14/18 documented as of this encounter
--- OUTSIDE RECORDS SUMMARY | 2024-02-26 03:37 | External Medical Summary | Summary of Care ---
Author Name Unknown Organization [facility] Address [address] [place] [address] Phone [phone] Care Team Providers Care Manager Book Name Role Phone López Edward MD Primary Care Provider + Reason for Visit * Reason Onset Date Comments Urinary Tract Infection Symptoms 10/28/2023 Encounter Details Date Type Department Care Team (Late st Contact Info) Description 10/28/2023 Telephone General Internal Medicine [facility] 200 [facility] [place] [address] López Edward MD [address] [place] [address] Urinary Tract Infection Symptoms Allergies Active Allergy Reactions Criticality Noted Date [...] as of this encounter (statuses as of 10/28/2023) Medications Medication Sig Dispensed Refills Start Date [...] mouth daily as needed for Constipation. Active Hxiehda-Vzurgau-Xcd hyl Jaskaran 1.2-5.7-6.3 % External Patch Apply [...] as of this encounter (statuses as of 10/28/2023) Active Problems Problem Noted Date Diagnosed Date [...] as of this encounter (statuses as of 10/28/2023) Resolved Problems Problem Noted Date Diagnosed Date [...] program 12/26/2017 12/24/2019 Overview: DO NOT DELETE [facility] DETECT Study: Project # [id number], Optimization Engineer: Ihsan Rucker, PhD. SUMMARY: Goal: Establish test [...] contact study staff at ; after hours Optimization Engineer via the [facility] orange peel operator . Please contact study team before resolving/deleting from patients problem list. Study phone number: [phone]. Diagnosis changed due to Research Module. Go to Snapshot for study details. Encounter for examination fo r normal comparison and control in clinical research program 12/26/2017 01/21/2022 Overview: DO NOT DELETE - [facility] DETECT Study: Project # [id number], Optimization Engineer: Napoleon Dean, MS, MPH. SUMMARY: Goal: Establish [...] contact study staff at ; after hours Optimization Engineer via the [facility] orange peel operator . - Please contact study team before resolving/deleting from patients problem list. Study phone number: [phone]. Diagnosis changed due to Research Module. Go [...] as of this encounter (statuses as of 10/28/2023) Immunizations Name Administration Dates Next Due 01/24/2014,11/08/2013 [...] encounter Miscellaneous Notes * Telephone Encounter - Katie Partida LPN - 10/28/2023 10:07 AM EDT Called patient back. Informed of Dr. Edward's message. She will try to go to [place] today if her transportation is available. If not, she is going tosee if her son can take her tomorrow. Reiterated in the future to not wait until her symptoms are severe. Voices understanding. * Telephone Encounter - López Edward MD - 10/28/2023 10:02 AM EDT Suggest visit given duration of symptoms, here, urgent care or weekend clinic. Please don't wait tosymptoms get severe * Telephone Encounter - Katie Partida LPN - 10/28/2023 9:50 AM EDT UTI Symptoms Review Patient is an Adult Female ages 18-65: no Patient called to c/o of dysuria, frequency or urgency: yes Chief Complaint: Dysuria: yes Frequency: yes Urgency: yes Symptoms above greater than 7 days: yes 2-3 weeks ago gradually. Focus Questions: Temperature greater than 101 degrees F: no Flank Pain (mid-back, severe, new occurring with onset of these symptoms): yes Blood in Urine: no Nausea: yes Vomiting: no Abdominal Pain: no History of Urinary Tract Infections: yes Greater than or equal to 4 UTI's within last 12 months: yes Have you completed a course of antibiotics for a UTI within the past 28 days: no Patient is experiencing urethra spasms that started this week. Dark colored and cloudy urine the last 2 days. No appts available. Patient is able to drop off a urine specimen at [place] if you want to ordera UA C&S. Requesting to start an ABX as well. Please advise. documented in this encounter Plan of Treatment Upcoming Encounters Date Type Department Care Team (Late st Contact Info) Description 11/04/2023 1:30 PM EDT Office Visit Neurology, [place] [address] [place] [address] Js Lopez MD [address] [place] [address] 12/20/2023 2:30 PM EDT Telemedicine Nutrition, [facility] [address] [place] [address] Noemi Raymundo, RDN [address] [place] [address] 02/20/2024 2:00 PM EDT Imaging Radiology, [place] [address] [facility] [place] [address] 04/09/2024 2:00 PM EST Office Visit General Internal Medicine [facility] 200 [facility] [place] [address] López Edward MD 200 [facility] [place] [address] Scheduled Procedures Name Priority Associated Diagnoses Date/Ti me COLONOSCOPY FLEXIBLE PROXIMA L DIAGNOSTIC Recall History of colonic polyps Health Maintenance Due Date Last Done Comments Cologuard 1994 Sigmoidoscopy 1994 Zoster Vaccines (1 of 2) 1999 Fecal Occult Blood Test 08/16/2014 08/17/19 14, 04/23/2011, 05/14/2001, Additional history exists DXA Scan 08/05/2021 08/06/2019, 1006/2016, 08/20/2015, Additional history exists Mammogram 12/29/2022 12/29/2021, 0801/2022, 11/18/2020, Additional history exists COVID-19 Vaccine ( season) 2023 05/22/2021, 07/30/2020, 07/09/2020 TSH 09/13/2024 09/14/2023, 12/21, 12/23/2021, Additional history exists O2 ASSESSMENT COMPLETED IN PAST YEAR FOR COPD 09/25/2024 09/26/2023 Colonoscopy 03/25/2026 03/25/2021, 1107/2020, 03/25/2021, Additional history exists Colorectal Cancer Screening 03/25/2026 DTaP,Tdap,and Td Vaccines (3 - Td or Tdap) 11/24/2026 11/24/2016, 05/15/2007 Pneumococcal Vaccine: 65+ Years Completed 09/01/2015, 06/04/2014, 04/06/2007 VITAMIN D LEVEL ONCE IN A LIFETIME-USE SMARTSET# [id number] Completed 01/23/2020, 02/08/2017, 11/18/2015, Additional history exists [...] this encounter Medical Devices Implanted Type Area Play Reader Device Identifier Shelf Expiration Date Model / Serial / Lot [id number] [employer], Embosphere, 100-300 Units Implanted:Qty: 1 on 05/21/2019 by Kadeem Ware MD [place] [facility] N/A: Head [employer] 12/20/2021 S220GH / S220GH / [id number] [id number] Inc, Bare [place], Axium Prime, Detachable Coil System,[id number] Implanted:Qty: 1 on 05/21/2019 by Kadeem Ware MD at OR [facility] N/A: Head EV3 INC 10/02/2021 APB-1-2-HX -ES / APB-1-2-HX -ES / [id number] [id number] Inc, Bare [place], Axium Prime, Detachable Coil System,[id number] Implanted:Qty: 1 on 05/21/2019 by Kadeem Ware MD at OR [facility] N/A: Head [employer] INC 03/06/2021 APB-1-3-HX -ES / APB-1-3-HX -ES / [id number] documented as of this encounter Advance Directives * Full Code (Latest Code Status on File) Date Activated Date Inactivated Comments 05/19/2019 8:38 AM 05/28/2019 7:54 PM This order r eflects the patients wishes and were consensually agreed upon. Care Teams Manager Book Relationship Specialty Start Date End Date López dEward MD 200 [facility], [place] [phone] PCP - General Internal Medicine 07/14/18 documented as of this encounter
--- OUTSIDE RECORDS SUMMARY | 2024-02-26 03:37 | External Medical Summary | Summary of Care ---
Author Name Unknown Organization [facility] Address [address] [place] [address] Phone [phone] Care Team Providers Care Seasoning Sprayer Name Role Phone López Edward MD Primary Care Provider + Reason for Visit * Reason Onset Date Comments Test Results 11/09/2023 Encounter Details Date Type Department Care Team (Late st Contact Info) Description 11/09/2023 Telephone General Internal Medicine [facility] 200 [facility] [place] [phone] López Edward MD [address] [facility] [place] [address] Test Results Allergies Active Allergy Reactions Criticality [...] mouth daily as needed for Constipation. Active Acniohg-Enkenyn-Bvz hyl Jaskaran 1.2-5.7-6.3 % External Patch Apply [...] DELETE [facility] DETECT Study: Project # [id number], Ham Marker: Ihsan Rucker, PhD. SUMMARY: Goal: Establish test [...] contact study staff at ; after hours Ham Marker via the [facility] two needle machine operator . Please contact study team before resolving/deleting from patients problem list. Study phone number: [phone]. Diagnosis changed due to Research Module. Go to Snapshot for study details. Encounter for examination fo r normal comparison and control in clinical research program 12/26/2017 01/21/2022 Overview: DO NOT DELETE - [facility] Study: Project # [id number], Ham Marker: Napoleon Dean, MS, MPH. SUMMARY: Goal: Establish [...] contact study staff at ; after hours Ham Marker via the [facility] hospital two needle machine operator . - Please contact study team before resolving/deleting from patients problem list. Study phone number: [phone]. Diagnosis changed due to Research Module. Go [...] encounter Miscellaneous Notes * Telephone Encounter - Rusty Tavera OSA [...] [address] [place] [phone] Js Lopez MD [address] [facility] [place] [address] 12/20/2023 2:30 PM EDT Telemedicine [facility] [address] [place] [address] Noemi Raymundo, RDN [address] [place] [address] 02/20/2024 2:00 PM EDT Imaging Radiology, [facility] [address] [facility] [place] [address] 04/09/2024 2:00 PM EST Office Visit General Internal Medicine [facility] [address] [place] [address] López Edward MD [address] [place] [address] Scheduled Procedures Name Priority Associated Diagnoses Date/Ti [...] D LEVEL ONCE IN A LIFETIME-USE SMARTSET# 26590 Completed 01/23/2020, 02/08/2017, 11/18/2015, Additional history exists [...] this encounter Medical Devices Implanted Type Area Artillery Specialist Device Identifier Shelf Expiration Date Model / Serial / Lot blogfoster Systems Inc, Embosphere, 100-300 Units Implanted:Qty: 1 on 05/21/2019 by Kadeem Ware MD at [place] [facility] N/A: Head [employer] INC 12/20/2021 S220GH / S220GH / [id number] [id number] Inc, Bare [place], Axium Prime, Detachable Coil System,[id number] Implanted:Qty: 1 on 05/21/2019 by Kadeem Ware MD at OR [facility] N/A: Head EV3 INC 10/02/2021 APB-1-2-HX -ES / APB-1-2-HX -ES / [id number] [id number] Inc, Bare [place], Axium Prime, Detachable Coil System,[id number] Implanted:Qty: 1 on 05/21/2019 by Kadeem Ware MD at OR [facility] N/A: Head [employer] INC 03/06/2021 APB-1-3-HX -ES / APB-1-3-HX -ES / [id number] documented as of this encounter Advance Directives * Full Code (Latest Code Status on File) Date Activated Date Inactivated Comments 05/19/2019 8:38 AM 05/28/2019 7:54 PM This order r eflects the patients wishes and were consensually agreed upon. Care Teams Seasoning Sprayer Relationship Specialty Start Date End Date López Edward MD 200 [place] [address] PCP - General Internal Medicine 07/14/18 documented as of this encounter
--- OUTSIDE RECORDS SUMMARY | 2024-02-26 03:38 | External Medical Summary | Summary of Care ---
Author Name Unknown Organization [facility] Address [address] [place] [address] Phone [phone] Care Team Providers Care Applications Sales Representative Name Role Phone López Edward MD Primary Care Provider + Encounter Details Date Type Department Care Team (Late st Contact Info) Description 09/07/2023 Orders Only PATIENT PORTAL DO NOT DELETE THIS DEPT USED BY [place] A[place]ERS [id number] Allergies Active Allergy Reactions Criticality Noted Date [...] as of this encounter (statuses as of 09/07/2023) Medications Medication Sig Dispensed Refills Start Date End Date Status VITAMIN D 1000 UNIT PO CAPSIndications:Vit fritz D deficiency 1 capsule daily 30 11 08/12/2009 Active LAMICTAL 200 MG PO TABS Take 1 Tablet by mouth at bedtime. 0 08/02/2012 Active Nutritional Supplements (ENSURE) Take by mouth 2 times a day. One can 0 Active acetaminophen (TYLENOL) 500 MG Tablet Take 1 Tablet by mouth every 4 hours as needed for Pain (or Fever. Do not exceed 3000 mg daily of all Acetaminophen products combined.). 0 Active Coenzyme Q10 (COQ10) 100 MG CAPS Take 2 Caps by mouth at bedtime. 0 10/15/2016 Active Probiotic Product (PROBIOTIC & ACIDOPHILUS EX ST) Capsule Take 1 Cap by mouth daily. 0 10/15/2016 Active Calcium Carbonate 600 MG Tablet Take 2 Tablets by mouth in the morning. 0 05/14/2017 Active polyethylene glycol 3350 (MIRALAX) packet Take 1 Packet by mouth daily as needed for Constipation. 0 Active Tjbdlbl-Xlufuuj-Shx hyl Jaskaran 1.2-5.7-6.3 % External Patch Apply 1 Patch topically to affected area as needed for Pain. For neck and shoulders 0 Active Spacer/Aero-Holding Chambers DEVIIndications:Pul monary emphysema, unspecified emphysema type (HCC),Oral thrush Use with inhaler. 2 Device 0 01/04/2019 Active Additional Information Patient not taking.Informant: Patient, Reported on 06/27/2023 triamcinolone acetonide (ARISTOCORT) 0.1 % creamIndications:Me dication reaction, initial encounter Apply topically to affected area 2 times a day. To affected area. 60 g 5 12/24/2019 Active Adapalene 0.1 % External Gel (Differin) APPLY TOPICALLY TO AFFECTED AREA AT BEDTIME. APPLY TO FACE AREA NEEDED 45 g 1 02/20/2021 Active Additional Information Patient not taking.Informant: Patient, Reported on 06/27/2023 Zoster Vac Recomb Adjuvanted 50 MCG/0.5ML Intramuscular [...] into a large muscle every 4 weeks. 0 03/16/2022 Active Estradiol 0.1 MG/GM Vaginal Cream (Estrace) USE 1/2 APPLICATORFUL INTO VAGINA 2X A WEEK 42.5 g 1 10/04/2022 Active Additional Information Patient not taking.Reported on 09/05/2023 Famotidine 20 MG Oral Tablet (Pepcid)Indications :GERD [...] Administer 2 L/min(Oxygen) into nostril at bedtime. 0 04/19/2023 Active Levothyroxine Sodium 50 MCG Oral [...] Fiber Oral Tablet Chewable Take by mouth. 0 Active Cefdinir 300 MG Oral Capsule (Omnicef)Indication s:Recurrent UTI Take 1 Capsule by mouth in the morning and 1 Capsule before bedtime. Do all this for 7 days. 14 Capsule 0 09/05/2023 4 Active documented as of this encounter (statuses as of 09/07/2023) Active Problems Problem Noted Date Diagnosed Date Moderate protein-calorie malnutrition 10/13/2022 Affective psychosis, bipolar [...] to acquired atrophy of thyroi d 04/27/2005 GENERAL OSTEOARTHROSIS 11/22/2002 documented as of this encounter (statuses as of 09/07/2023) Resolved Problems Problem Noted Date Diagnosed Date [...] 12/26/2017 12/24/2019 Overview: DO NOT DELETE [facility] DETECT Study: Project # [id number], Foam Rubber Molder: Ihsan Rucker, PhD. SUMMARY: Goal: Establish test [...] contact study staff at ; after hours Foam Rubber Molder via the [facility] hospital blanket winder operator . Please contact study team before resolving/deleting from patients problem list. Study phone number: [phone]. Diagnosis changed due to Research Module. Go to Snapshot for study details. Encounter for examination fo r normal comparison and control in clinical research program 12/26/2017 01/21/2022 Overview: [facility] DELETE [facility] Study[facility] Project # [id number], Foam Rubber Molder: Napoleon Dean, MS, MPH. SUMMARY: Goal: Establish [...] contact study staff at ; after hours Foam Rubber Molder via the [facility] hospital blanket winder operator . - Please contact study team before resolving/deleting from patients problem list. Study phone number: [phone]. Diagnosis changed due to Research Module. Go [...] 04/27/2005 03/03/2017 Pain in limb 2005 10/26/2016 Essential tremor 07/10/2001 01/17/2018 Major depressive disorder Overview: ICD-10 update of inactive term Bipolar disorder 05/14/2013 Tobacco use disorder 017 Bipolar disorder 07/06/2013 documented as of this encounter (statuses as of 09/07/2023) Immunizations Name Administration Dates Next Due 01/24/2014,11/08/2013 [...] 65+ yrs 03/29/2019 TD, Preservative Free 11/24/2016 TDAP (age 11 and older)(Adacel) 05/15/2007 documented as of this encounter Social [...] the money to buy more. Never true 01/23/20 22 Within the past 12 months, t he food you bought just didn't last and you didn't have money to get more. Never true 01/22/2022 Sex and Gender Information Value Date Recorded [...] Care Team (Late st Contact Info) Description 09/14/2023 2:00 PM EDT Office Visit General Internal Medicine [place] [facility] [address] [place] [address] López Edward MD [address] [place] [address] 09/15/2023 1:00 PM EDT Imaging Radiology [facility] [address] [facility] [place] [address] 09/26/2023 2:00 PM EDT Office Visit Cardiology, [facility] [address] [place] [address] Kelli Travis, ROSA ELENAC [address] [place] [address] 11/04/2023 1:30 PM EDT Office Visit Neurology, [place] [address] [place] [address] Js Lopez MD [address] [place] [address] 12/20/2023 2:30 PM EDT Telemedicine Nutrition, [facility] [address] [place] [address] Noemi Raymundo, ARMANI [address] [place] [address] Scheduled Procedures Name Priority Associated Diagnoses Date/Ti me COLONOSCOPY FLEXIBLE PROXIMA L DIAGNOSTIC Recall History of colonic polyps Health Maintenance Due Date Last Done Comments Zoster Vaccines (1 of 2) 1999 DXA Scan 08/05/2021 08/06/2019, 06/2016, 08/20/2015, Additional history exists Mammogram 12/29/2022 12/29/2021, 080 01/2022, 11/18/2020, Additional history exists COVID-19 Vaccine ( season) 2023 05/22/2021, 07/30/2020, 07/09/2020 TSH 12/31/2023 12/30/2022, 080 07/2021, 11/11/2021, Additional history exists O2 ASSESSMENT COMPLETED IN PAST YEAR FOR COPD 06/27/2024 06/27/2023 COLONOSCOPY-EVERY 5 YRS AGES 18-100 03/25/2026 03/25/2021, 03/25/2021, 03/25/2021, Additional history exists DTaP,Tdap,and Td Vaccines (3 - Td or Tdap) 11/24/2026 11/24/2016, 05/15/2007 Lipid Panel 06/08/2027 06/08/2022, 05/24, 09/18/2020, Additional history exists Pneumococcal Vaccine: 65+ Years Completed 09/01/2015, 06/04/2014, 04/06/2007 VITAMIN D LEVEL ONCE IN A LIFETIME-USE SMARTSET# [id number] Completed 01/23/2020, 02/08/2017, 11/18/2015, Additional history exists Alpha-1 Antitrypsin Completed 08/15/2020 Lung Cancer Screening Completed 06/29/2021 , 06/30/2020, 05/19/2019, Additional history exists Influenza Vaccine (FLU shot) Completed , 03/16/2022, 02/06/2021, Additional history exists GARDASIL-HPV IMMUNIZATION SERIES Aged Out No longer eligible based on patient's age to complete this topic Hepatitis B Aged Out No longer eligi ble based on patient's age to complete this topic MENINGOCOCCAL (MENACTRA/MENVEO) Aged Out No longer eligible based on patient's age to complete this topic documented as of this encounter Medical Devices Implanted Type Area Gm Video Device Identifier Shelf Expiration Date Model / Serial / Lot [employer], [employer]osphere, 100-300 Units Implanted:Qty: 1 on 05/21/2019 by Kadeem Ware MD at OR [facility] N/A: Head [employer] 12/20/2021 [id number] / [id number] / [id number] [employer], [place] [employer], [employer], Detachable Coil System,[id number] Implanted:Qty: 1 on 05/21/2019 by Kadeem Ware MD at OR [facility] N/A: Head [employer] 10/02/2021 APB-1-2-HX -ES / APB-1-2-HX -ES / [id number] [employer], [place] [place] [employer], [employer] Prime, Detachable Coil System,[id number] Implanted:Qty: 1 on 05/21/2019 by Kadeem Ware MD at OR [facility] N/A: Head [employer] 03/06/2021 APB-1-3-HX -ES / APB-1-3-HX -ES / [id number] documented as of this encounter Advance Directives Latest Code Status on File Code Status Date Activated Date Inactivated Comments Full Code 05/19/2019 8:38 AM 05/28/2019 7:54 PM This order reflects the patients wishes and were consensually agreed upon. Care Teams Applications Sales Representative Relationship Specialty Start Date End Date López Edward MD [address] [place] [address] PCP - General Internal Medicine 07/14/18 documented as of this encounter
--- OUTSIDE RECORDS SUMMARY | 2024-02-26 03:38 | External Medical Summary | Summary of Care ---
Author Name Unknown Organization [facility] Address [address] [place] [address] Phone [phone] Care Team Providers Care Bar Machine Operator Production Name Role Phone López Edward MD Primary Care Provider + Reason for Visit * Reason Comments Follow Up 6 month return. Pt d enied any new concerns Encounter Details Date Type Department Care Team (Latest Contact Info) Description 09/14/2023 2:00 PM EDT Office Visit General Internal Medicine [facility] [address] [place] [address] López Edward MD [address] [place] [address] Recurrent UTI*; Nausea; Schizoaffective disorder, bipolar type (HCC); High risk for fracture due to osteoporosis by DEXA scan; Hypothyroidism due to acquired atrophy of thyroid; Senile osteoporosis; History of tobacco abuse; COPD, group B, by GOLD 2017 classification ([facility]); Delusional disorder ([facility]); Dyslipidemia, goal LDL below 70; Ectopic atrial tachycardia ([facility]); Moderate protein-calorie malnutrition ([facility]) Allergies Active Allergy Reactions Criticality Noted Date [...] as of this encounter (statuses as of 09/14/2023) Medications Medication Sig Dispensed Refills Start Date [...] daily as needed for Constipation. 0 Active Kliagii-Duvxjxc-Zxv hyl Jaskaran 1.2-5.7-6.3 % External Patch Apply 1 Patch topically to affected area as needed for Pain. For neck and shoulders 0 Active Spacer/Aero-Holding Chambers DEVIIndications:Pul monary emphysema, unspecified emphysema type (HCC),Oral thrush Use with inhaler. 2 Device 0 01/04/2019 Active triamcinolone acetonide (ARISTOCORT) 0.1 % [...] Tablet Chewable Take by mouth. 0 Active documented as of this encounter (statuses as of 09/14/2023) Active Problems Problem Noted Date Diagnosed Date Dyslipidemia, goal LDL below 70 09/14/2023 Moderate [...] as of this encounter (statuses as of 09/14/2023) Resolved Problems Problem Noted Date Diagnosed Date [...] DELETE [facility] DETECT Study: Project # [id number], Chapter Relations Administrator: Ihsan Rucker, PhD. SUMMARY: Goal: Establish test [...] contact study staff at ; after hours Chapter Relations Administrator via the [facility] welder machine operator . Please contact study team before resolving/deleting from patients problem list. Study phone number: [phone]. Diagnosis changed due to Research Module. Go to Snapshot for study details. Encounter for examination fo r normal comparison and control in clinical research program 12/26/2017 01/21/2022 Overview: DO NOT DELETE - [facility] DETECT Study: Project # [id number], Chapter Relations Administrator: Napoleon Dean, MS, MPH. SUMMARY: Goal: Establish [...] contact study staff at ; after hours Chapter Relations Administrator via the [facility] welder machine operator . - Please contact study team before resolving/deleting from patients problem list. Study phone number: [phone]. Diagnosis changed due to Research Module. Go to Snapshot for study details. Adrenal insufficiency 10/15/20162019 Family history of melanoma 09/11/2015 0 10/26/2016 Overview: mother Actinic keratosis 06/05/2013 07/14/2018 Other seborrheic keratosis 06/05/2013 0 07/14/2018 Mucocele of lower lip 06/05/20132016 Hypothyroidism 01/23/2013 10/16/2015 PTSD (post-traumatic stress disorder) 11/23/2011 05/14/2013 Uterine prolapse 11/09/2010 09/13/2017 Vitamin D deficiency 08/12/2009 018 COPD with emphysema 11/20/2008 02/08/20 23 ADVANCE DIRECTIVE INFORMATION 05/14/2008 06/03/2017 Overview: No, Advance Directive brochure offered , patient declined. ABN INVOLUN MOVEMENT NEC 04/08/200610/2016 Osteoporosis 04/27/2005 03/03/2017 Pain in limb 2005 10/26/2016 GENERAL OSTEOARTHROSIS 11/22/200209/13 Essential tremor 07/10/2001 01/17/2018 Major depressive disorder Overview: ICD-10 update of inactive term Bipolar disorder 05/14/2013 Tobacco use disorder 017 Bipolar disorder 07/06/2013 documented as of this encounter (statuses as of 09/14/2023) Immunizations Name Administration Dates Next Due 01/24/2014,11/08/2013 04/29/2014 COVID-19 mRNA, LNP-s, No Pre serve, 2-Dose Series (Ammado) 07/30/2020,07/09/2020 COVID-19, mRNA, LNP-s, PF, B ooster, [...] Sign Reading Time Taken Comments Blood Pressure 98/60 09/14/2023 2:06 PM EDT Pulse 80 09/14/2023 2:06 PM EDT Temperature 36.2 C (97.1 F) 09/14/2023 2:06 PM ED T Respiratory Rate - - Oxygen Saturation 97% 09/14/2023 2:06 PM EDT Inhaled Oxygen Concentration - - Weight 45 kg (99 lb 4.8 oz) 09/14/2023 2:06 PM E DT Height 154.9 cm (5' 1") 09/14/2023 2:06 PM EDT Body Mass Index 18.76 09/14/2023 2:06 PM EDT documented in this encounter Functional [...] Progress Notes * López Edward MD - 09/14/2023 2:31 PM EDT Chief Complaint Patient presents with Follow Up 6 month return. Pt denied any new concerns SUBJECTIVE: Sirisha Patterson is a 73 year old female with PMH as below who presents for follow up schizoaffective disorder, lipids, weight loss, hypothyroidism, oste porosis. No cp, sob, dobe. Mood has been ok,working with psychiatry on this. Weight was up to 107, felt good, but then had issues with recurrent uti, nausea with this, weight down again. She is eating, but feels full quickly. No falls. Has labs today and ct tomorrow for uti issues. No vomiting or diarrhea. Sees neurology for tremor. Breathing has been good Patient Active Problem List Diagnosis Code GENERAL OSTEOARTHROSIS M15.9 Hypothyroidism due to acquired atrophy of thyroid E03.4 GERD (gastroesophageal reflux disease) K21.9 Orthostatic hypotension I95.1 CTS (carpal tunnel syndrome) G56.00 Esophageal dysmotility K22.4 Thoracic aortic ectasia (HCC) I77.810 High risk for fracture due to osteoporosis by DEXA scan M81.0 Ectopic atrial tachycardia (HCC) I47.19 Action tremor G25.2 Irritable bowel syndrome with constipation K58.1 Spasmodic torticollis G24.3 COPD, group B, by GOLD 2017 classification ([facility]) J44.9 History of subdural hematoma Z86.79 Mild mitral regurgitation I34.0 Diastolic dysfunction I51.89 Schizoaffective disorder, bipolar type ([facility]) F25.0 Affective psychosis, bipolar (HCC) F31.9 Delusional disorder (HCC) F22 Moderate protein-calorie malnutrition (HCC) E44.0 Dyslipidemia, goal LDL below 70 E78.5 Current Outpatient Medications Medication Sig Dispense Refill [...] by mouth daily as needed for Constipation. Dahzoyh-Wzbezoj-Khzuph Jaskaran 1.2-5.7-6.3 % External Patch Apply 1 Patch topically to affected area asneeded for Pain. For neck and shoulders Spacer/Aero-Holding Chambers MAURISIO Use with inhaler. 2 Device 0 triamcinolone acetonide (ARISTOCORT) 0.1 % cream Apply topically to affected area 2 times a day. Toaffected area. 60 g 5 Paliperidone Palmitate ER 78 MG/0.5ML Intramuscular Suspension Prefilled Syringe Inject 78 mg into a large muscle every 4 weeks. Estradiol 0.1 MG/GM Vaginal Cream (Estrace) USE [...] 3 TABLETS AT BEDTIME 630 Tablet 3 clonazePAM 1 MG Oral Tablet (KlonoPIN) TAKE 1 TABLET BY MOUTH THREE TIMES A DAY 90 Tablet 2 Raloxifene HCl 60 MG Oral Tablet (Evista) TAKE 1 TABLET BY MOUTH EVERYDAY AT BEDTIME 90 Tablet 3 Metamucil Fiber Oral Tablet Chewable Take by mouth. Adapalene 0.1 % External Gel (Differin) APPLY TOPICALLY TO AFFECTED AREA AT BEDTIME. APPLY TO FACE AREA NEEDED (Patient not taking: Reported on 06/27/2023) 45 g 1 Zoster Vac Recomb Adjuvanted [...] of 2) Never done DXA Scan 08/05/2021 Mammogram 12/29/2022 COVID-19 Vaccine ( season) 2023 ROS: CONSTITUTIONAL: No weakness, and No fevers, sweats, or chills EYE: No recent significant change in vision, No eye pain, redness, discharge, and No diplopia EARS: No ear pain, No drainage, No tinnitus or vertigo, and No recent change in hearing PULMONARY: No recent change in breathing CARDIOVASCULAR: No chest pain, No shortness of breath, No dyspnea on exertion, No orthopnea, No paroxysmal nocturnal dyspnea, No edema, No palpitations, and No syncope GASTROINTESTINAL: No significant change in appetite, No vomiting, diarrhea, or constipation, No hematemesis, No blood in stools or black tarry stools, and No dysphagia ALL OTHER SYSTEMS NEGATIVE I reviewed social, [...] date: 05/23/1981 Quit date: 05/23/2011 Years since quittin.3 Smokeless tobacco: Never Vaping Use Vaping Use: Never used Substance and Sexual Activity Alcohol use: Not [...] Merged History Encounter Born and raised in [place], moved to [facility] [place]. and lives alone. Has 3 children with one in the area. Disabled due to fatigue and tremors. 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 Social Determinants of Health Financial Resource Strain: Not on file Food Insecurity: No Food Insecurity (06/27/2023) Hunger Vital Sign Worried About Running Out of Food in the Last Year: Never true Ran Out of Food in the Last Year: Never true Transportation Needs: Not on file Physical Activity: Not on file Stress: Not on file Social Connections: Not on file Intimate Partner Violence: Not on file Housing Stability: Not on file Past Medical History: Diagnosis Date Abnormal involuntary movement 04/08/2006 paternal family history of tremors and Parkinsons Acquired hypothyroidism 08/17/2020 Adrenal insufficiency (HCC) 10/15/2016 Bipolar disorder (HCC) COPD (chronic obstructive pulmonary disease) ([facility]) Depressive disorder, not elsewhere classified Dr Fonseca and Sandy Fuentes Diastolic dysfunction 08/05/2020 GERD (gastroesophageal reflux disease) Heart failure ([facility]) High risk for fracture due to [...] History: Procedure Laterality Date CATARACT SURGERY,COMPLEX Left 12/04/2015Jul CATARACT SURGERY,COMPLEX Right 11/2016 COLONOSCOPY 04/18/2006 normal repeat 2010 COLONOSCOPY, DIAGNOSTIC (RECTUM) 05/02/1997 improper prep. COLONOSCOPY, DIAGNOSTIC (RECTUM) 08/08/2013 COLONOSCOPY FLEXIBLE PROXIMAL DIAGNOSTIC performed by David Cotton MD at ENDOSCOPY [facility] COLONOSCOPY, DIAGNOSTIC (RECTUM) 02/04/2015 benign polyp, repeat 5 yrs/COLONOSCOPY FLEXIBLE PROXIMAL DIAGNOSTIC performed by David Cotton MD at ENDOSCOPY [facility] COLONOSCOPY, DIAGNOSTIC (RECTUM) N/A 03/25/2021 non-bleeding internal hemorrhoids/recall 5 years/Colonoscopy/[place] CORONARY ANGIOGRAPHY W/LEFT HEART CATH N/A 07/10/2014 CORONARY ANGIOGRAPHY W/LEFT HEART CATH performed by Celeste Madrid MD at [facility] CYSTOSCOPY 05/14/2008 CYSTOSCOPY 12/16/2014 CYSTOSCOPY 05/29/2018 done in office- Dr Bob DILATION AND CURETTAGE (D&C) D&C EGD, FLEXIBLE, DIAGNOSTIC 08/08/2013 ESOPHAGOGASTRODUODENOSCOPY (EGD), FLEXIBLE, TRANSORAL, DIAGNOSTIC performed by David Cotton MD at ENDOSCOPY [facility] EGD, FLEXIBLE, DIAGNOSTIC 02/04/2015 normal bx/ESOPHAGOGASTRODUODENOSCOPY (EGD), FLEXIBLE, TRANSORAL, DIAGNOSTIC performed by David Cotton MD at ENDOSCOPY [facility] EGD, FLEXIBLE, DIAGNOSTIC 01/07/2022 normal bx / [facility] EGD, FLEXIBLE, DIAGNOSTIC N/A 03/25/2021 small [...] performed by Kadeem Ware MD at [place] [facility] FL LAP,CHOLECYSTECTOMY 11/20/2022 REMOVAL OF APPENDIX REMOVE TONSILS & ADENOIDS, UNDER 12 REVISION OF UTERUS 1993 fibroid removed SURGICAL REMOVAL, ERUPTED TOOTH AND BONE Family History Problem Relation Age of Onset Melanoma Mother Hypertension Mother Thyroid Disorder Mother Colon cancer Mother age 83 Heart Disorder Father CABG age 50; age 85 Cancer Sister Anal cancer with mets Colon cancer Sister Rectal No Known Problems Sister No Known Problems Sister Other (Fibromyalgia) Sister Other (carpal tunnel) Sister Other (rods in his spine) Brother No Known Problems Brother No Known Problems Brother No Known Problems Brother Endocrine Disorder Grandmother (Maternal) Neurological Disorder Grandmother (Paternal) movement disorder Cancer Grandfather (Paternal) Cancer Aunt (Unspecified) maternal Cancer Uncle (Unspecified) Neurological Disorder Uncle (Unspecified) parkinson disease/parkinson disease Cancer Uncle (Unspecified) maternal-stomach ca Parkinsonism Aunt (Paternal) Eye Problems No significant family history denies fm: glaucoma, blindness, AMD, RD Breast Cancer No significant family history OBJECTIVE: PHYSICAL EXAM: BP 98/60 | Pulse 80 | Temp 36.2 C (97.1 F) (Tympanic) | Ht 1.549 m (5' 1") | Wt 45 kg (99 lb 4.8 oz) | SpO2 97% | BMI 18.76 kg/m | BSA 1.39 m General: alert, healthy, and no distress Head: Normocephalic, No masses, lesions, or abnormalities Eye Exam: conjunctiva are pink and non-injected, sclera clear Ears: External ears normal, Canals clear, TM's Normal Heart: regular rate & rhythm, no murmur, no gallops, PMI non-displaced, S-1 normal, and S-2 normal Lungs: normal respiratory rate and rhythm, lungs clear to auscultation Psych: normal affect, no flight of ideas or tangential thought, good eye contact, no pressured speech I reviewed last lipid ASSESSMENT: N39.0 Recurrent UTI (primary encounter diagnosis) R11.0 Nausea F25.0 Schizoaffective disorder, bipolar type (HCC) M81.0 High risk for fracture due to osteoporosis by DEXA scan E03.4 Hypothyroidism due to acquired atrophy of thyroid M81.0 Senile osteoporosis Z87.891 History of tobacco abuse J44.9 COPD, group B, by GOLD 2017 classification (HCC) F22 Delusional disorder (HCC) E78.5 Dyslipidemia, goal LDL below 70 I47.19 Ectopic atrial tachycardia (HCC) E44.0 Moderate protein-calorie malnutrition (HCC) PLAN: Recurrent UTI (Primary) Await labs, imaging Had cysto recently Nausea Possible from infection, abx If persistent, may need gi again Schizoaffective disorder, bipolar type (HCC) Cont med per psych High risk for fracture due to osteoporosis by DEXA scan Discussed dexa, agrees On Raloxifene Hypothyroidism due to acquired atrophy of thyroid - LIPID PANEL WITH DIRECT LDL IF TG IS HIGH; Future; Expected date: 09/14/2023 - TSH; Future; Expected date: 09/14/2023 Cont levothyroxine Senile osteoporosis - DEXA SCAN/BONE MINERAL AXIAL History of tobacco abuse Cont cessation Patient was to have f/u CT for lung nodules, but never did. Is agreeable, aware this is ct, radiation and can find other abnormalities, but can find cancer early, would like done COPD, group B, by GOLD 2017 classification (HCC) Controlled Delusional disorder (HCC) Sees psychiatry Dyslipidemia, goal LDL below 70 Cont crestor Ectopic atrial tachycardia (HCC) Sees cardiology Moderate protein-calorie malnutrition (HCC) Follow weights, was improving prior to uti past months Follow Up: Return in about 6 months (around 03/15/2024), or if symptoms worsen or fail to improve, for Labs Today. | For: Labs Today López Edward MD documented in this encounter Nursing Notes * Marce Washburn MED ASSIST - 09/14/2023 2:09 PM EDT Chief Complaint Patient presents with Follow Up 6 month return. Pt denied any new concerns Patient has been verbally educated on the need or importance of Immunizations: shingles and has declined topic(s). documented in this encounter Plan of Treatment Upcoming Encounters Date Type Department Care Team (Late st Contact Info) Description 09/15/2023 1:00 PM EDT Imaging Radiology [facility] [address] [facility] [address] [place] [address] 09/26/2023 2:00 PM EDT Office Visit Cardiology, [facility] [address] [facility] [place] [address] Kelli Travis PA-C [address] [facility] [place] [address] 11/04/2023 1:30 PM EDT Office Visit Neurology, [place] [address] [place] [address] Js Lopez MD [address], [place] [id number] 12/20/2023 2:30 PM EDT Telemedicine [facility], [facility] [address] [facility] [place] [address] Noemi Raymundo, [place] [address] [place] [address] 02/20/2024 2:00 PM EDT Imaging Radiology, [facility] [address] [facility] [place] [address] 04/09/2024 2:00 PM EST Office Visit General Internal Medicine [facility] [address] [facility] [place] [address] López Edward MD [address] [facility] [place] [address] Pending Results Name Type Priority Associated Diagnoses Date /Time LIPID PANEL WITH DIRECT LDL IF TG IS HIGH Lab Routine Hypothyroidism due to acquired atrophy of thyroid 09/14/2023 2:39 PM EDT TSH Lab Routine Hypothyroidism due to acquired atrophy of thyroid 09/14/2023 2:39 PM EDT Scheduled Orders Name Type Priority Associated Diagnoses Orde r Schedule LIPID PANEL WITH DIRECT LDL IF TG IS HIGH Lab Routine Hypothyroidism due to acquired atrophy of thyroid Expected: 09/14/2023, Expires: 09/13/2024 DEXA SCAN/BONE MINERAL AXIAL Medical Imaging Routine Senile osteoporosis Ordered: 09/14/2023 TSH Lab Routine Hypothyroidism due to acquired atrophy of thyroid Expected: 09/14/2023 (Approximate), Expires: 09/13/2024 Scheduled Procedures Name Priority Associated Diagnoses Date/Ti [...] ASSESSMENT COMPLETED IN PAST YEAR FOR COPD 09/13/2024 09/14/2023 COLONOSCOPY-EVERY 5 YRS AGES 18-100 03/25/2026 03/25/2021, 03/25/2021, 03/25/2021, Additional history exists DTaP,Tdap,and Td Vaccines (3 - Td or Tdap) 11/24/2026 11/24/2016, 05/15/2007 Lipid Panel 06/08/2027 06/08/2022, 05/24, 09/18/2020, Additional history exists Pneumococcal Vaccine: 65+ Years Completed 09/01/2015, 06/04/2014, 04/06/2007 VITAMIN D LEVEL ONCE IN A LIFETIME-USE SMARTSET# [id number] Completed 01/23/2020, 02/08/2017, 11/18/2015, Additional history exists [...] this encounter Medical Devices Implanted Type Area Fish Butcher Device Identifier Shelf Expiration Date Model / Serial / Lot [employer], Embosphere, 100-300 Units Implanted:Qty: 1 on 05/21/2019 by Kadeem Ware MD [place] [facility] N/A: Head [employer] 12/20/2021 [id number] / [id number] / [id number] [employer], [place], Axium Prime, Detachable Coil System,[id number] Implanted:Qty: 1 on 05/21/2019 by Kadeem Ware MD at [facility] N/A: Head [employer] 10/02/2021 APB-1-2-HX -ES / APB-1-2-HX -ES / [id number] [employer], Bare [place], Axium Prime, Detachable Coil System,[id number] Implanted:Qty: 1 on 05/21/2019 by Kadeem Ware MD at [facility] N/A: Head [employer] 03/06/2021 APB-1-3-HX -ES / APB-1-3-HX -ES / [id number] documented as of this encounter Visit Diagnoses Diagnosis Recurrent UTI- Primary Urinary tract infection, site not specified Nausea Nausea alone Schizoaffective disorder, bipolar type (HCC) Schizoaffective disorder, unspecified condition High risk for fracture due to osteoporosis by DEXA scan Osteoporosis, unspecified Hypothyroidism due to acquired atrophy of thyroid Senile osteoporosis History of tobacco abuse Personal history of tobacco use, presenting hazards to health COPD, group B, by GOLD 2017 classification (HCC) Delusional disorder (HCC) Dyslipidemia, goal LDL below 70 Other and unspecified hyperlipidemia Ectopic atrial tachycardia (HCC) Other specified cardiac dysrhythmias Moderate protein-calorie malnutrition (HCC) Malnutrition of moderate degree documented in this encounter Advance Directives Latest Code Status on File Code Status Date Activated Date Inactivated Comments Full Code 05/19/2019 8:38 AM 05/28/2019 7:54 PM This order reflects the patients wishes and were consensually agreed upon. Care Teams Bar Machine Operator Production Relationship Specialty Start Date End Date López Edward MD [address] [place] [address] PCP - General Internal Medicine 07/14/18 documented as of this encounter
--- OUTSIDE RECORDS SUMMARY | 2024-02-26 03:38 | External Medical Summary | Summary of Care ---
Author Name Unknown Organization [facility] Address [address] [place] [address] Phone [phone] Care Team Providers Care Tree Chipper Name Role Phone López Edward MD Primary Care Provider + Reason for Visit * Reason Onset Date Comments Health Maintenance 10/20/2023 Encounter Details Date Type Department Care Team (Late st Contact Info) Description 10/20/2023 Telephone General Internal Medicine [facility] [address] [facility] [place] [id number] López Edward MD [address] [facility] [place] [address] Health Maintenance Allergies Active Allergy Reactions Criticality Noted Date [...] as of this encounter (statuses as of 10/20/2023) Medications Medication Sig Dispensed Refills Start Date [...] mouth daily as needed for Constipation. Active Udkjlen-Vrewunz-Cfc hyl Jaskaran 1.2-5.7-6.3 % External Patch Apply [...] as of this encounter (statuses as of 10/20/2023) Active Problems Problem Noted Date Diagnosed Date [...] as of this encounter (statuses as of 10/20/2023) Resolved Problems Problem Noted Date Diagnosed Date [...] NOT DELETE [facility] DETECT Study: Project # [id number], Cylinder Checker: Ihsan Rucker, PhD. SUMMARY: Goal: Establish [...] contact study staff at ; after hours Cylinder Checker via the [facility] grinding machine operator portable . Please contact study team before resolving/deleting from patients problem list. Study phone number: [phone]. Diagnosis changed due to Research Module. Go to Snapshot for study details. Encounter for examination fo r normal comparison and control in clinical research program 12/26/2017 01/21/2022 Overview: [facility] DELETE [facility] [place] [facility] Study: Project # [id number], Cylinder Checker: Napoleon Dean, MS, MPH. SUMMARY: Goal: [...] contact study staff at ; after hours Cylinder Checker via the [facility] hospital grinding machine operator portable . - Please contact study team before resolving/deleting from patients problem list. Study phone number: [phone]. Diagnosis changed due to Research Module. Go [...] as of this encounter (statuses as of 10/20/2023) Immunizations Name Administration Dates Next Due 01/24/2014,11/08/2013 [...] encounter Miscellaneous Notes * Telephone Encounter - Christa Campbell LPN - 10/20/2023 2:55 PM EDT Care Gaps Comprehensive Care Outreach Last Office/Telemedicine Visit: 09/14/2023 (in office), 06/24/2020 (telemedicine) Next Office Visit: 04/09/2024 Hemoglobin AIC Results: No results found for: "HEMOGLOBIN A1C" BP Readings from Last 1 Encounters: 09/26/23 100/68 Reviewed Health Maintenance below: Health Maintenance Topic Date Due Zoster Vaccines (1 of 2) Never done DXA Scan 08/05/2021 Mammogram 12/29/2022 COVID-19 Vaccine ( season) 2023 Mamm my g Dexa already scheduled Care Gap Outreach Action Taken: FiveCubitst message sent documented in this encounter Plan of Treatment Upcoming Encounters Date Type Department Care Team (Late st Contact Info) Description 10/26/2023 2:15 PM EDT Imaging Radiology [address] [facility] [place] [address] 11/04/2023 1:30 PM EDT Office Visit Neurology, [place] [address] [place] [address] Js Lopez MD [address], [place] [id number] 12/20/2023 2:30 PM EDT Telemedicine [facility] [address] [facility] [place] [address] Noemi Raymundo RDN 132 [place] [address] 02/20/2024 2:00 PM EDT Imaging Radiology, [address] [place] [address] 04/09/2024 2:00 PM EST Office Visit General Internal Medicine [facility] [address] [facility] [place] [address] López Edward MD 200 [facility] [place] [address] Scheduled Procedures Name Priority Associated Diagnoses Date/Ti [...] D LEVEL ONCE IN A LIFETIME-USE SMARTSET# 14421 Completed 01/23/2020, 02/08/2017, 11/18/2015, Additional history exists [...] this encounter Medical Devices Implanted Type Area Conservation Enforcement Officer Device Identifier Shelf Expiration Date Model / Serial / Lot [id number] [employer], Embosphere, 100-300 Units Implanted:Qty: 1 on 05/21/2019 by Kadeem Ware MD at OR [facility] N/A: Head [employer] 12/20/2021 [id number] / [id number] / [id number], [place]are [place], Axium Prime, Detachable Coil System,[id number] Implanted:Qty: 1 on 05/21/2019 by Kadeem Ware MD at OR [facility] N/A: Head [employer] 10/02/2021 APB-1-2-HX -ES / APB-1-2-HX -ES / [id number], Bare [place], Axium Prime, Detachable Coil System,[id number] Implanted:Qty: 1 on 05/21/2019 by Kadeem Ware MD at OR [facility] N/A: Head [employer] 03/06/2021 APB-1-3-HX -ES / APB-1-3-HX -ES / [id number] documented as of this encounter Advance Directives * Full Code (Latest Code Status on File) Date Activated Date Inactivated Comments 05/19/2019 8:38 AM 05/28/2019 7:54 PM This order r eflects the patients wishes and were consensually agreed upon. Care Teams Tree Chipper Relationship Specialty Start Date End Date López Edward MD [address] [facility] [place] [address] PCP - General Internal Medicine 07/14/18 documented as of this encounter
--- OUTSIDE RECORDS SUMMARY | 2024-02-26 03:38 | External Medical Summary | Summary of Care ---
Author Name Unknown Organization [facility] Address [address] [place] [address] Phone [phone] Care Team Providers Care Production Zone Leader Name Role Phone López Edward MD Primary Care Provider + Reason for Visit * Reason Comments Follow Up Encounter Details Date Type Department Care Team (Late st Contact Info) Description 09/26/2023 2:00 PM EDT Office Visit Cardiology, [facility] [address] [place] [address] Kelli Travis PA-C [address] [place] [address] Coronary artery calcification*; Dyslipidemia, goal LDL below 70; Orthostatic hypotension Allergies Active Allergy Reactions Criticality Noted Date [...] as of this encounter (statuses as of 09/26/2023) Medications Medication Sig Dispensed Refills Start Date [...] daily as needed for Constipation. 0 Active Cuiqwif-Cihsyzn-Ewi hyl Jaskaran 1.2-5.7-6.3 % External Patch Apply [...] Tablet Chewable Take by mouth. 0 Active Carbidopa-Levodopa 25-100 MG Oral Tablet (Sinemet) TAKE 1/2 TABLET AT BED TIME FOR 1 WEEK, THEN ADD EXTRA 1/2 TAB EACH WEEK, UP TO 1 TAB 3 TIMES A DAY. 0 09/22/2023 Active documented as of this encounter (statuses as of 09/26/2023) Active Problems Problem Noted Date Diagnosed Date [...] as of this encounter (statuses as of 09/26/2023) Resolved Problems Problem Noted Date Diagnosed Date [...] program 12/26/2017 12/24/2019 Overview: DO NOT DELETE [facility] DETECT Study: Project # [id number], Qual Research Manager: Ihsan Rucker, PhD. SUMMARY: Goal: Establish [...] contact study staff at ; after hours Qual Research Manager via the [facility] hospital pipe cleaning machine operator . Please contact study team before resolving/deleting from patients problem list. Study phone number: [phone]. Diagnosis changed due to Research Module. Go to Snapshot for study details. Encounter for examination fo r normal comparison and control in clinical research program 12/26/2017 01/21/2022 Overview: DO NOT DELETE - Jaydon REDDY Study: Project # [id number], Qual Research Manager: Napoleon Dean, MS, MPH. SUMMARY: Goal: [...] contact study staff at ; after hours Qual Research Manager via the [facility] hospital pipe cleaning machine operator . - Please contact study team before resolving/deleting from patients problem list. Study phone number: [phone]. Diagnosis changed due to Research Module. Go [...] as of this encounter (statuses as of 09/26/2023) Immunizations Name Administration Dates Next Due 01/24/2014,11/08/2013 04/29/2014 COVID-19 mRNA, LNP-s, No Pre serve, 2-Dose Series (Crispify) 07/30/2020,07/09/2020 COVID-19, mRNA, LNP-s, PF, B ooster, [...] Sign Reading Time Taken Comments Blood Pressure 100/68 09/26/2023 1:52 PM EDT Pulse 78 09/26/2023 1:52 PM EDT Temperature - - Respiratory Rate - - Oxygen Saturation 97% 09/26/2023 1:52 PM EDT Inhaled Oxygen Concentration - - Weight 45.8 kg (101 lb) 09/26/2023 1:52 PM EDT Height - - Body Mass Index 19.08 09/14/2023 2:06 PM EDT documented in this [...] as of this encounter Progress Notes * Kelli Travis PA-C - 09/26/2023 1:55 PM EDT 09/26/2023 Cardiology F/U: SUBJECTIVE: Sirisha Patterson is a 73 year old female who presents today for routine cardiology f/u. Last clinic evaluation approx [address] Corona. History includes: Mild atherosclerotic calcification of the aorta via CT abdomen and pelvis, May 19, 2022. 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 No recent chest pain or dyspnea. No palpitations or tachypalpitations. No dizziness. No recent edema or need for furosemide over the lastyear. She is having issues with recurrent UTI's and following with PCP and urology. No chest pain, shortness of breath, palpitations, dizziness, syncope or near syncope. No orthopnea,PND, or increased lower extremity edema. No fever, chills, cough, hematochezia, melena, or hemoptysis. Review of Systems: See HPI for pertinent positives. All others negative, other than those noted in HPI. Patient Active Problem List Diagnosis Code Hypothyroidism due to acquired atrophy of thyroid [...] COPD, group B, by GOLD 2017 classification ([facility]) J44.9 History of subdural hematoma Z86.79 Mild mitral regurgitation I34.0 Diastolic dysfunction I51.89 Schizoaffective disorder, bipolar type ([facility]) F25.0 Affective psychosis, bipolar ([facility]) F31.9 Delusional disorder ([facility]) F22 Moderate protein-calorie malnutrition ([facility]) E44.0 Dyslipidemia, goal LDL below 70 E78.5 Social History Tobacco Use Smoking status: Former Current packs/day: 0.00 Average packs/day: 1 pack/day for 30.0 years (30.0 ttl pk-yrs) Types: Cigarettes Start date: 05/23/1981 Quit date: 05/23/2011 Years since quittin.3 Smokeless tobacco: Never Vaping Use Vaping Use: Never used Substance Use Topics Alcohol use: Not Currently Comment: rare Drug use: Never Review of patient's allergies indicates: Allergen Reactions [...] Other reaction(s): rash Nickel Other reaction(s): Rash Current Outpatient Medications Medication Sig Dispense Refill [...] by mouth daily as needed for Constipation. Dtplubd-Jjnoqli-Crzbsq Jaskaran 1.2-5.7-6.3 % External Patch Apply 1 [...] Fiber Oral Tablet Chewable Take by mouth. Zoster Vac Recomb Adjuvanted 50 MCG/0.5ML Intramuscular Suspension Reconstituted (Shingrix) Inject 0.5 mL into a large muscle now and repeat dose in 60 to 180 days (Patient not taking: Reported on 06/27/2023) 1 Each 1 Carbidopa-Levodopa 25-100 MG Oral Tablet (Sinemet) TAKE 1/2 TABLET AT BED TIME FOR 1 WEEK, THEN ADDEXTRA 1/2 TAB EACH WEEK, UP TO 1 TAB 3 TIMES A DAY. (Patient not taking: Reported on 09/26/2023) No current facility-administered medications for this visit. OBJECTIVE/PHYSICAL EXAMINATION: BP 100/68 | Pulse 78 | Wt 45.8 kg (101 lb) | SpO2 97% | BMI 19.08 kg/m | BSA 1.4 m General: no acute distress and stated age Eyes: conjunctiva are pink and non-injected, sclera clear Neck: normal jugular venous pulse, no hepatojugular reflux Chest: normal shape and normal respiratory effort Lungs: clear to auscultation , no rales rhonchi or wheezing Cardiac Exam: - regular heart sounds, no murmurs, rubs, or gallops Abdomen: not examined Musculoskeletal: no gait disturbance, no weakness Extremities: no edema and no cyanosis Neuro: grossly normal exam Psych: appropriate affect and insight. Data: EKG performed today and reviewed personally: Normal sinus rhythm Left axis deviation No significant change from previous EKG performed 11/03/2022 at [facility]: Sinus rhythm at 83 beats per minute, mild nonspecific T-wave flattening in the anterior precordial leads, stable findings Echo report reviewed dated July 2020: Interpretation Summary The examination is adequate to evaluate the referral indication. The LV wall thickness is normal. The left ventricular wall motion is normal. The qualitative LV ejection fraction is 60-64% (normal). The left ventricular diastolic function is mildly abnormal (grade I). Mild aortic valve sclerosis is present. Mild mitral regurgitation is present. There is no evidence of pulmonary hypertension. Latest Reference Range & Units 06/08/22 14:38 09/14/23 14:39 Triglycerides <=174 mg/dL 129 65 Cholesterol <200 mg/dL 279 (H) 184 Non-HDL Cholesterol <=159 mg/dL 200 (H) 93 HDL Cholesterol >49 mg/dL 79 91 LDL Cholesterol <=129 mg/dL 174 (H) 80 (H): Data is abnormally high ASSESSMENT / PLAN: 73 year old female ICD-10-CM 1. Coronary artery calcification I25.10 I25.84 2. Dyslipidemia, goal LDL below 70 E78.5 3. Orthostatic hypotension I95.1 Improved LDL from 174 in 2022 to 80 in 2023. Goal is < 70. Would continue current dose of Crestor 20 mg daily. If not at goal next repeat lipids, increase dose to 40 mg. Borderline hypotension is chronic. She was educated on remaining hydrated and changing positions slowly. No recent symptomatic events. The patient is to continue all current medications as listed above. No changes were made at today'svisit. Patient is being evaluated in the cardiology office for ongoing care/risk management for coronary artery calcification; dyslipidemia. I spent a total of 25 minutes on the date of service in preparation, delivery, and documentation ofthe care provided to Sirisha Patterson excluding any time spent in the performance of separately billed services. The patient agrees to the above plan and will call with additional questions or concerns. ER with all emergencies advised. Follow-up: Return in about 1 year (around 09/25/2024). | Check-out note: With Dr. Chloe Travis PA-C Department of Cardiology This chart was completed in part utilizing [employer] Speech Voice Recognition Software. Grammatical errors, random word insertions, prounoun errors, and incomplete sentences are an occasional consequence of this system due to software limitations, ambient noise, and hardware issues. Any formal questions or concerns about the content, text, or information contained within the body of this dictation should be directly addressed to the provider for clarification. documented in this encounter Nursing Notes * Lynn Levy CMA - 09/26/2023 1:51 PM EDT Examination Room: 6 Name: Sirisha Patterson Date of : (1950) Reason for Visit: 6m Interim Hospitalization(s): none Problems/Concerns: denied Chest Pain/SOB: denied My [facility] is a way you can talk to your provider online through e-mail. Would you like to sign up? I can activate it for you? ALREADY ACTIVE Patient was instructed to not get up on the exam table until directed and assisted by their provider; patient is to remain seated in the chair/ wheelchair/ exam table for fall prevention and safety reasons. Patient is aware to have assistance to step down off exam table with personnel. Patient voiced full comprehension of instructions. documented in this encounter Plan of Treatment Upcoming Encounters Date Type Department Care Team (Late st Contact Info) Description 10/26/2023 2:15 PM EDT Imaging Radiology [address] 132 [facility] [place] [address] 11/04/2023 1:30 PM EDT Office Visit Neurology, [place] [address] [place] [phone] Js Lopez MD [address] [place] [address] 12/20/2023 2:30 PM EDT Telemedicine Nutrition, [facility] 132 [facility] [place] [address] Noemi Raymundo RDN 132 [facility] [place] [address] 02/20/2024 2:00 PM EDT Imaging Radiology, [place] [id number] [facility] [place] [address] 04/09/2024 2:00 PM EST Office Visit General Internal Medicine [facility] [address] [place] [address] López Edward MD [facility] [place] [address] Scheduled Orders Name Type Priority Associated Diagnoses Orde r Schedule EKG EKG Routine Dyslipidemia, goal LDL below 70 Ordered: 09/26/2023 Scheduled Procedures Name Priority Associated Diagnoses Date/Ti [...] or Tdap) 11/24/2026 11/24/2016, 05/15/2007 Lipid Panel 09/13/2028 09/14/2023, 05/23, 06/16/2021, Additional history exists Pneumococcal Vaccine: 65+ Years Completed 09/01/2015, 06/04/2014, 04/06/2007 VITAMIN D LEVEL ONCE IN A LIFETIME-USE SMARTSET# [id number] Completed 01/23/2020, 02/08/2017, 11/18/2015, Additional history exists [...] this encounter Medical Devices Implanted Type Area Promotions Manager Device Identifier Shelf Expiration Date Model / Serial / Lot [employer]Linc [employer], Embosphere, 100-300 Units Implanted:Qty: 1 on 05/21/2019 by Kadeem Ware MD at OR [facility] N/A: Head [employer] 12/20/2021 S220GH / [id number] / [id number], Bare [place], Axium Prime, Detachable Coil System,[id number] Implanted:Qty: 1 on 05/21/2019 by Kadeem Ware MD at OR [facility] N/A: Head [employer] 10/02/2021 APB-1-2-HX -ES / APB-1-2-HX -ES / [id number], Bare [place], Axium Prime, Detachable Coil System,[id number] Implanted:Qty: 1 on 05/21/2019 by Kadeem Ware MD at OR [facility] N/A: Head [employer] 03/06/2021 APB-1-3-HX -ES / APB-1-3-HX -ES / [id number] documented as of this encounter Visit Diagnoses Diagnosis Coronary artery calcification- Primary Coronary atherosclerosis of unspecified type of vessel, resighini or graft Dyslipidemia, goal LDL below 70 Other and unspecified hyperlipidemia Orthostatic hypotension documented in this encounter Advance Directives Latest Code Status on File Code Status Date Activated Date Inactivated Comments Full Code 05/19/2019 8:38 AM 05/28/2019 7:54 PM This order reflects the patients wishes and were consensually agreed upon. Care Teams Production Zone Leader Relationship Specialty Start Date End Date López Edward MD 200 [facility] [place] [address] PCP - General Internal Medicine 07/14/18 documented as of this encounter"
--- OUTSIDE RECORDS SUMMARY | 2024-02-26 03:38 | External Medical Summary | Summary of Care ---
Author Name Unknown Organization [facility] Address [address] [place] [address] Phone [phone] Care Team Providers Care Carpet Tile Layer Name Role Phone López Edward MD Primary Care Provider + Reason for Visit * Reason Comments Outpatient Testing Encounter Details Date Type Department Care Team (Late st Contact Info) Description 09/14/2023 2:50 PM EDT Laboratory Laboratory [facility] [address] [place] [address] [place], Lab Scenery [address] [place] [address] Recurrent UTI; Hypothyroidism due to acquired atrophy of thyroid Allergies Active Allergy Reactions Criticality Noted Date [...] daily as needed for Constipation. 0 Active Gxrlxja-Nrlhsrp-Msx hyl Jaskaran 1.2-5.7-6.3 % External Patch Apply [...] program 12/26/2017 12/24/2019 Overview: DO NOT DELETE [employer] DETECT Study: Project # [id number], Regional Recruiter: Ihsan Rucker, PhD. SUMMARY: Goal: Establish test [...] contact study staff at ; after hours Regional Recruiter via the [facility] nut sorter operator . Please contact study team before resolving/deleting from patients problem list. Study phone number: [phone]. Diagnosis changed due to Research Module. Go to Snapshot for study details. Encounter for examination fo r normal comparison and control in clinical research program 12/26/2017 01/21/2022 Overview: DO NOT DELETE - [employer] DETECT Study: Project # [id number], Regional Recruiter: Napoleon Dean, MS, MPH. SUMMARY: Goal: Establish [...] contact study staff at ; after hours Regional Recruiter via the [facility] nut sorter operator . - Please contact study team before resolving/deleting from patients problem list. Study phone number: [phone]. Diagnosis changed due to Research Module. Go [...] Description 09/15/2023 1:00 PM EDT Imaging Radiology [facility] 1st [facility] [address] [place] [address] 09/26/2023 2:00 PM EDT Office Visit Cardiology, [facility] [address] [facility] [place] [address] Kelli Travis PA-C [address] [place] [address] 11/04/2023 1:30 PM EDT Office Visit Neurology, [place] [address] [place] [phone] Js Lopez MD [address] [place] [address] 12/20/2023 2:30 PM EDT Telemedicine [facility] [address] [place] [address] Noemi Raymundo, ARMANI [address] [place] [address] 02/20/2024 2:00 PM EDT Imaging Radiology, [place] [address] [facility] [place] [address] 04/09/2024 2:00 PM EST Office Visit General Internal Medicine [facility] [address] [place] [address] López Edward MD [address] [facility] [place], [place] [address] Pending Results Name Type Priority Associated Diagnoses Date /Time CBC Lab Routine Recurrent UTI 09/14/2023 2:39 PM EDT COMPREHENSIVE METABOLIC PANEL Lab Routine Recurrent UTI 09/14/2023 2:39 PM EDT LIPID PANEL WITH DIRECT LDL IF TG IS HIGH Lab Routine Hypothyroidism due to acquired atrophy of thyroid 09/14/2023 2:39 PM EDT TSH Lab Routine Hypothyroidism due to acquired atrophy of thyroid 09/14/2023 2:39 PM EDT Scheduled Procedures Name Priority Associated Diagnoses Date/Ti me COLONOSCOPY FLEXIBLE PROXIMA L DIAGNOSTIC Recall History of colonic polyps Health Maintenance Due Date Last Done Comments Zoster Vaccines (1 of 2) 1999 DXA Scan 08/05/2021 08/06/2019, 06/2016, 08/20/2015, Additional history exists Mammogram 12/29/2022 12/29/2021, 01/2022, 11/18/2020, Additional history exists COVID-19 Vaccine ( - 2022- season) 2023 05/22/2021, 07/30/2020, 07/09/2020 TSH 12/31/2023 12/30/2022, 0807/2021, 11/11/2021, Additional history exists O2 ASSESSMENT COMPLETED IN PAST YEAR FOR COPD 09/13/2024 09/14/2023 COLONOSCOPY-EVERY 5 YRS AGES 18-100 03/25/2026 03/25/2021, 03/25/2021, 03/25/2021, Additional history exists DTaP,Tdap,and Td Vaccines (3 - Td or Tdap) 11/24/2026 11/24/2016, 05/15/2007 Lipid Panel 06/08/2027 06/08/2022, 05/24, 09/18/2020, Additional history exists Pneumococcal Vaccine: 65+ Years Completed 09/01/2015, 06/04/2014, 04/06/2007 VITAMIN D LEVEL ONCE IN A LIFETIME-USE SMARTSET# 72070 Completed 01/23/2020, 02/08/2017, 11/18/2015, Additional history exists [...] this encounter Medical Devices Implanted Type Area Observer Electrical Prospecting Device Identifier Shelf Expiration Date Model / Serial / Lot Viptable Inc, Embosphere, 100-300 Units Implanted:Qty: 1 on 05/21/2019 by Kadeem Ware MD at [place] [facility] N/A: Head [employer] 12/20/2021 S220GH / [id number] / [id number] [id number] Inc, Bare [place], Axium Prime, Detachable Coil System,[id number] Implanted:Qty: 1 on 05/21/2019 by Kadeem Ware MD at OR [facility] N/A: Head EV[employer] INC 10/02/2021 APB-1-2-HX -ES / APB-1-2-HX -ES / [id number] Ev3 Inc, Bare [place], Axium Prime, Detachable Coil System,[id number] Implanted:Qty: 1 on 05/21/2019 by Kadeem Ware MD at OR [facility] N/A: Head [employer] INC 03/06/2021 APB-1-3-HX -ES / APB-1-3-HX -ES / [id number] documented as of this encounter Visit Diagnoses Diagnosis Recurrent UTI Urinary tract infection, site not specified Hypothyroidism due to acquired atrophy of thyroid documented in this encounter Advance Directives Latest Code Status on File Code Status Date Activated Date Inactivated Comments Full Code 05/19/2019 8:38 AM 05/28/2019 7:54 PM This order reflects the patients wishes and were consensually agreed upon. Care Teams Carpet Tile Layer Relationship Specialty Start Date End Date López Edward MD [address] [place] [address], [place] [address] PCP - General Internal Medicine 07/14/18 documented as of this encounter
--- OUTSIDE RECORDS SUMMARY | 2024-02-26 03:38 | External Medical Summary ---
Author Name Unknown Address Unknown Organization K01[facility] [place] [address] [place] [address] Laboratory Report Ordering Provider Test Date Status ERIS ADAMS 09/14/2023 14:39:43 Final Observation Date Value Abnormality Reference (Units ) Status TSH 09/14/2023 14:39:43 3.90 0.27-4.20 (uIU/mL) Final Performing Location LABORATORY C - [address] [place] [address]
--- OUTSIDE RECORDS SUMMARY | 2024-02-26 03:38 | External Medical Summary | Summary of Care ---
Author Name Unknown Organization [facility] Address [address] [place] [address] Phone [phone] Care Team Providers Care Interactive Media Marketing Strategist Name Role Phone López Edward MD Primary Care Provider + Reason for Visit * Reason Onset Date Comments Precert Not Needed 09/29/2023 Pepe Encounter Details Date Type Department Care Team (Late st Contact Info) Description 09/29/2023 Telephone Gastroenterology, [facility] [address] [place] [address] Joanne Washburn CRNP [address] [place] [address] Precert Not Needed ( Pepe) Allergies Active Allergy Reactions Criticality Noted Date [...] as of this encounter (statuses as of 10/21/2023) Medications Medication Sig Dispensed Refills Start Date [...] mouth daily as needed for Constipation. Active Kzcgjip-Ucflshd-Sad hyl Jaskaran 1.2-5.7-6.3 % External Patch Apply [...] as of this encounter (statuses as of 10/21/2023) Active Problems Problem Noted Date Diagnosed Date [...] as of this encounter (statuses as of 10/21/2023) Resolved Problems Problem Noted Date Diagnosed Date [...] DELETE [facility] DETECT Study: Project # [id number], Thread Twister: Ihsan Rucker, PhD. SUMMARY: Goal: Establish test [...] contact study staff at ; after hours Thread Twister via the [facility] classifier operator . Please contact study team before resolving/deleting from patients problem list. Study phone number: [phone]. Diagnosis changed due to Research Module. Go to Snapshot for study details. Encounter for examination fo r normal comparison and control in clinical research program 12/26/2017 01/21/2022 Overview: DO NOT DELETE - Jaydon Kirkpatrick BARRY Study: Project # [id number], Thread Twister: Napoleon Dean, MS, MPH. SUMMARY: Goal: Establish [...] contact study staff at ; after hours Thread Twister via the [facility] hospital classifier operator . - Please contact study team before resolving/deleting from patients problem list. Study phone number: [phone]. Diagnosis changed due to Research Module. Go [...] as of this encounter (statuses as of 10/21/2023) Immunizations Name Administration Dates Next Due 01/24/2014,11/08/2013 [...] encounter Miscellaneous Notes * Telephone Encounter - Kaci Hernandez RN - 10/21/2023 1:36 PM EDT Type Date User Summary Attachment Precert 10/21/2023 1:28 PM Omaira Maldonado OSA New or re-auth: new authorization - Note: New or re-auth: new authorization Approved/Denied: [place] not needed Drug Name and Formulation: Linzess 145mcg Capsule How Prescribed(directions/sig): once daily before breakfast Day Supply: 30 per 30 days Did you receive insurance information from outside the chart? No, received insurance information within the chart Valid auth start date: N/A Valid auth end date: N/A Rx Insurance Info: robin [place] Reference #: n/a Rx Benefits Verified through/on date: [facility] 09/29 Referral (TE) received from: Prescribing [facility] no review needed, paid claims at pharmacy, preferred per members formulary Omaira Maldonado Medication Quality Control Lab Technician II [facility] 10/21/23,1:27 PM * Telephone Encounter - Kathrine Luna CMA - 10/11/2023 11:51 AM EDT Received fax from [facility] requesting most recent progress note.Progress note from 12/2022 faxed to [facility] to review for Servandos prior auth. Kathrine Luna CMA * Telephone Encounter - Nadine Irwin RN - 09/29/2023 11:05 AM EDT Prior auth required by pharmacy for Pepe Cover My Meds [place] [id number] Gastro Pre-Cert Request Specialty Medication: No. Medication/Disease State Information: Medication: Servandos Diagnosis (including ICD-10): K58.1 Irritable bowel with constipation, Site of care: Self-administered - route pre-cert request to [id number] Office Information: Prescriber: Joanne Cantu is ongoing medication and didn't need prior auth last year 09/2022 Last office visit 01/17/23 documented in this encounter Plan of Treatment Upcoming Encounters Date Type Department Care Team (Late st Contact Info) Description 10/26/2023 2:15 PM EDT Imaging Radiology [facility]st [facility] [address] [place] [address] 11/04/2023 1:30 PM EDT Office Visit Neurology, [place] [address] [place] [address] Js Lopez MD [address] [place] [address] 12/20/2023 2:30 PM EDT Telemedicine Nutrition, [facility] [address] [place] [address] Noemi Raymundo, ARMANI [address] [place] [facility] [place] [address] 02/20/2024 2:00 PM EDT Imaging Radiology, [facility] [address] [place] [address] 04/09/2024 2:00 PM EST Office Visit General Internal Medicine [facility] [address] [facility] [place] [address] López Edward MD [address] [facility] [place] [address] Scheduled Procedures Name Priority Associated Diagnoses Date/Ti [...] D LEVEL ONCE IN A LIFETIME-USE SMARTSET# [id number] Completed 01/23/2020, 02/08/2017, 11/18/2015, Additional history exists [...] this encounter Medical Devices Implanted Type Area Oil Spraying Machine Operator Device Identifier Shelf Expiration Date Model / Serial / Lot Miracle[employer] Inc, Embosphere, 100-300 Units Implanted:Qty: 1 on 05/21/2019 by Kadeem Ware MD at [place] [facility] N/A: Head [employer] INC 12/20/2021 S220GH / S220GH / [id number] [id number] Inc, Bare [place], Axium Prime, Detachable Coil System,[id number] Implanted:Qty: 1 on 05/21/2019 by Kadeem Ware MD at OR [facility] N/A: Head [employer] INC 10/02/2021 APB-1-2-HX -ES / APB-1-2-HX -ES / [id number] [id number] Inc, Bare [place], Axium Prime, Detachable Coil System,[id number] Implanted:Qty: 1 on 05/21/2019 by Kadeem Ware MD at [place] [facility] N/A: Head [employer] INC 03/06/2021 APB-1-3-HX -ES / APB-1-3-HX -ES / [id number] documented as of this encounter Advance Directives * Full Code (Latest Code Status on File) Date Activated Date Inactivated Comments 05/19/2019 8:38 AM 05/28/2019 7:54 PM This order r eflects the patients wishes and were consensually agreed upon. Care Teams Interactive Media Marketing Strategist Relationship Specialty Start Date End Date López Edward MD [address] [place] [address] PCP - General Internal Medicine 07/14/18 documented as of this encounter
--- OUTSIDE RECORDS SUMMARY | 2024-02-26 03:38 | External Medical Summary ---
Author Name Unknown Address Unknown Organization K09:[facility] [address] [place] [address] Laboratory Report Ordering Provider Test Date Status REECE DE LA VEGA 09/14/2023 14:39:43 Final Observation Date Value Abnormality Reference (Units ) Status BUN 09/14/2023 14:39:43 7 6-20 (mg/dL) Final Creatinine 09/14/2023 14:39:43 0.6 0.5-1.0 (mg/dL) Final Glomerular filtration rate/1.73 sq M.predicted [Volume Rate/Area] in Serum, Plasma or Blood by Creatinine-based formula (CKD-EPI) 09/14/2023 14:39:43 >90 >=60 (mL/min) Final eGFR is calculated based on the CKD-EPI 2020 equation Sodium 09/14/2023 14:39:43 137 135-146 (m mol/L) Final Potassium 09/14/2023 14:39:43 4.0 3.5-5.1 (m mol/L) Final Cl 09/14/2023 14:39:43 99 98-107 (mm ol/L) Final CO2 09/14/2023 14:39:43 28 22-32 (mmo l/L) Final Anion gap 09/14/2023 14:39:43 10 7-15 (mmol /L) Final Glucose 09/14/2023 14:39:43 87 70-120 (mg /dL) Final Albumin 09/14/2023 14:39:43 4.3 3.8-5.0 (g /dL) Final AST (Aspartate aminotransferase) 09/14/2023 14:39:43 43 Above high normal 10-35 (U/L) Final Alk Phos 09/14/2023 14:39:43 46 35-130 (U/ L) Final Bilirubin, Total 09/14/2023 14:39:43 0.2 <=1 .2 (mg/dL) Final Calcium 09/14/2023 14:39:43 9.2 8.4-10.2 ( mg/dL) Final Protein 09/14/2023 14:39:43 6.8 6.0-8.3 (g /dL) Final ALT (Alanine aminotransferase) 09/14/2023 14:39:43 51 Above high normal 10-35 (U/L) Final Performing Location [facility] [address] [place] [address]
--- OUTSIDE RECORDS SUMMARY | 2024-02-26 03:38 | External Medical Summary ---
Author Name Unknown Address Unknown Organization K09:[facility] [place] [address] Laboratory Report Ordering Provider Test Date Status REECE DE LA VEGA 09/14/2023 14:39:43 Final Observation Date Value Abnormality Reference (Units ) Status WBC, Total 09/14/2023 14:39:43 4.88 4.00-10.8 0 (K/uL) Final RBC 09/14/2023 14:39:43 3.80 3.85-5.15 (M/uL) Final Hemoglobin 09/14/2023 14:39:43 11.6 Below low normal 12 .0-15.3 (g/dL) Final HCT 09/14/2023 14:39:43 36.3 36.0-45.2 (%) Final MCV 09/14/2023 14:39:43 95.5 81.5-97.5 (fL) Final MCH 09/14/2023 14:39:43 30.5 27.0-34.0 (pg) Final MCHC 09/14/2023 14:39:43 32.0 32.0-36.0 (g/dL) Final RDW 09/14/2023 14:39:43 12.1 11.5-15.5 (%) Final Platelets 09/14/2023 14:39:43 285 140-400 (K /uL) Final MPV 09/14/2023 14:39:43 9.6 6.6-11.1 ( fL) Final Performing Location [facility] [place] [address]
--- OUTSIDE RECORDS SUMMARY | 2024-02-26 03:38 | External Medical Summary ---
Author Name Unknown Address Unknown Organization K01:[facility] [place] [address] [facility] [address] Laboratory Report Ordering Provider Test Date Status ERIS ADAMS 09/14/2023 14:39:43 Final Observation Date Value Abnormality Reference (Units ) Status Triglyceride 09/14/2023 14:39:43 65 <=174 ( mg/dL) Final Triglyceride Reference Range s (mg/dL):
<150 Acceptable
150-174 Borderline high
175-499 High
>=500 Very high Cholesterol 09/14/2023 14:39:43 184 <200 (mg /dL) Final Total Cholesterol Reference Ranges (mg/dL):
<200 Desirable
200-239 Borderline high
>=240 High HDL 09/14/2023 14:39:43 91 >49 (mg/dL ) Final HDL Cholesterol Reference Ra nges (mg/dL):
>=60 High (Desirable)
<50 Low (Undesirable) For Females
<40 Low (Undesirable) For Males NON-HDL CHOLESTEROL 09/14/2023 14:39:43 93 <=159 (mg/dL) Final Non-HDL Cholesterol Referenc e Range (mg/dL):
<100 Target level for high risk ASCVD patient
<130 Optimal for general population
130-159 Near optimal for general population
160-189 Borderline High
190-219 High
>=220 Very High LDL, (calculated) 09/14/2023 14:39:43 80 <= 129 (mg/dL) Final LDL Cholesterol Reference Ra nges (mg/dL):
<70 Target level for high risk ASCVD patient
<100 Optimal for general population
100-129 Near optimal for general population
130-159 Borderline high
160-189 High
>=190 Very high Performing Location [facility] [place] [address] [facility] [address]
--- OUTSIDE RECORDS SUMMARY | 2024-02-26 03:38 | External Medical Summary | Summary of Care ---
Author Name Unknown Organization [facility] Address [address] [place] [address] Phone [phone] Care Team Providers Care Supervisor Paper Products Name Role Phone López Edward MD Primary Care Provider + Reason for Visit * Reason Onset Date Comments Medication Refill 10/21/2023 Encounter Details Date Type Department Care Team (Late st Contact Info) Description 10/21/2023 Refill [facility] [address] [place] [address] Js Lopez MD [address] [place] [address] Essential tremor Allergies Active Allergy [...] mouth daily as needed for Constipation. Active Scrsxvx-Algcrdi-Ffi hyl Jaskaran 1.2-5.7-6.3 % External Patch Apply [...] [facility] Study: Project # [id number], Installment Loan Collector: Ihsan Rucker, PhD. SUMMARY: Goal: Establish test [...] study staff at ; after hours Installment Loan Collector via the [facility] glove machine operator . Please contact study team before resolving/deleting from patients problem list. Study phone number: [phone]. Diagnosis changed due to Research Module. Go to Snapshot for study details. Encounter for examination fo r normal comparison and control in clinical research program 12/26/2017 01/21/2022 Overview: DO NOT DELETE - [facility] DETECT Study: Project # [id number], Installment Loan Collector: Napoleon Dean, MS, MPH. SUMMARY: Goal: Establish [...] study staff at ; after hours Installment Loan Collector via the [facility] glove machine operator . - Please contact study team before resolving/deleting from patients problem list. Study phone number: [phone]. Diagnosis changed due to Research Module. Go [...] as of this encounter Miscellaneous Notes * Addendum Note - Shy Herbert OSA - 10/21/2023 4:33 PM EDTAddended by: SHY HERBERT on: 10/21/2023 04:33 PM Modules accepted: Orders * Telephone Encounter - Shy Herbert OSA - 10/21/2023 4:32 PM EDT Patient [...] Last date the medication was ordered: Pharmacy: [id number] [id number] [facility] Is this request for a controlled substance?Yes, [...] 01:20 PM * Telephone Encounter - Pradeep Glass, securities attorney - 10/21/2023 4:29 PM EDT Pt calling for neuro refill. Warm transferred to specialty line. Thank you, Pradeep Glass Pharmacist Critical Care I [facility] ([facility]formerly Telepharmacy) 10/21/2023,4:31 PM documented in this encounter Plan of Treatment Upcoming Encounters Date Type Department Care Team (Late st Contact Info) Description 10/26/2023 2:15 PM EDT Imaging Radiology [facility] 1st [facility] [address] [place] [address] 11/04/2023 1:30 PM EDT Office Visit Neurology, [place] [address] [place] [address] Js Lopez MD [address], [place] [address] 12/20/2023 2:30 PM EDT [facility] [address] [place] [address] Noemi Raymundo, ARMANI [address] [place] [address] 02/20/2024 2:00 PM EDT Imaging Radiology, [address] [place] [address] 04/09/2024 2:00 PM EST Office Visit General Internal Medicine [facility] [address] [place] [address] López Edward MD [address] [facility] [place] [address] Scheduled Procedures Name Priority Associated Diagnoses Date/Ti [...] D LEVEL ONCE IN A LIFETIME-USE SMARTSET# [id number] Completed 01/23/2020, 02/08/2017, 11/18/2015, Additional history exists [...] this encounter Medical Devices Implanted Type Area Back Roll Lathe Operator Device Identifier Shelf Expiration Date Model / Serial / Lot Trad[employer] Inc. [employer] Systems Inc, Embosphere, 100-300 Units Implanted:Qty: 1 on 05/21/2019 by Kadeem Ware MD [place] [facility] [place]/A: Head [employer] 12/20/2021 S220GH / S220GH / [id number] Inc, Bare [place], Axium Prime, Detachable Coil System,[id number] Implanted:Qty: 1 on 05/21/2019 by Kadeem Ware MD [place] [facility] [place]/A: Head [employer]3 INC 10/02/2021 APB-1-2-HX -ES / APB-1-2-HX -ES / [id number] [id number] Inc, Bare [place], Axium Prime, Detachable Coil System,[id number] Implanted:Qty: 1 on 05/21/2019 by Kadeem Ware MD at [place] [facility] [place]/A: Head [employer] 03/06/2021 APB-1-3-HX -ES / APB-1-3-HX -ES / [id number] documented as of this encounter Visit Diagnoses Diagnosis Essential tremor Essential and other specified forms of tremor documented in this encounter Advance Directives * Full Code (Latest Code Status on File) Date Activated Date Inactivated Comments 05/19/2019 8:38 AM 05/28/2019 7:54 PM This order r eflects the patients wishes and were consensually agreed upon. Care Teams Supervisor Paper Products Relationship Specialty Start Date End Date López Edward MD [address] [place] [address] PCP - General Internal Medicine 07/14/18 documented as of this encounter
--- OUTSIDE RECORDS SUMMARY | 2024-02-26 03:38 | External Medical Summary | Summary of Care ---
Author Name Unknown Organization [facility] Address [address] [place] [address] Phone [phone] Care Team Providers Care Parent Coach Name Role Phone López Edward MD Primary Care Provider + Reason for Visit * Reason Onset Date Comments Status Check 09/06/2023 Encounter Details Date Type Department Care Team (Late st Contact Info) Description 09/06/2023 Telephone General Internal Medicine [facility] [address] [facility] [place] [address] Justina Banegas MD [address] [place] [address] Status Check Allergies Active Allergy Reactions Criticality Noted Date [...] as of this encounter (statuses as of 09/06/2023) Medications Medication Sig Dispensed Refills Start Date [...] daily as needed for Constipation. 0 Active Pgidbye-Mhvghzj-Jjl hyl Jaskaran 1.2-5.7-6.3 % External Patch Apply [...] as of this encounter (statuses as of 09/06/2023) Active Problems Problem Noted Date Diagnosed Date [...] as of this encounter (statuses as of 09/06/2023) Resolved Problems Problem Noted Date Diagnosed Date [...] [facility] DETECT Study: Project # [id number], Marketing Senior Recruiter: Ihsan Rucker, PhD. SUMMARY: Goal: Establish [...] contact study staff at ; after hours Marketing Senior Recruiter via the [facility] heel washer stringing machine operator . Please contact study team before resolving/deleting from patients problem list. Study phone number: [phone]. Diagnosis changed due to Research Module. Go to Snapshot for study details. Encounter for examination fo r normal comparison and control in clinical research program 12/26/2017 01/21/2022 Overview: DO NOT DELETE - [facility] Study: Project # [id number], Marketing Senior Recruiter: Napoleon Dean, MS, MPH. SUMMARY: Goal: [...] contact study staff at ; after hours Marketing Senior Recruiter via the [facility] hospital heel washer stringing machine operator . - Please contact study team before resolving/deleting from patients problem list. Study phone number: [phone]. Diagnosis changed due to Research Module. Go [...] as of this encounter (statuses as of 09/06/2023) Immunizations Name Administration Dates Next Due 01/24/2014,11/08/2013 04/29/2014 COVID-19 mRNA, LNP-s, No Pre serve, 2-Dose Series ([employer]) 07/30/2020,07/09/2020 COVID-19, mRNA, LNP-s, PF, B ooster, [...] encounter Miscellaneous Notes * Telephone Encounter - Chester Rutledge RN - 09/06/2023 2:40 PM EDT Images from the original note were not included. The patient has been made aware and verbalized understanding of the message. Closing; inbasket clean-up. Provider to address: n/a Reason for Call: Status Check Contact: Telephone Call Contact Type: Advice Outcome: See above Face to face time spent with Patient (minutes): 0 Total Time including non face to face (minutes): 10 Chester [facility] Primary Care Nurse Coordinator [facility] * Telephone Encounter - Chester Rutledge RN - 09/06/2023 1:11 PM EDT Message sent via Guest of a Guest. Provider to address: n/a Reason for Call: Status Check Contact: [facility] Contact Type: Information Outcome: See above Face to face time spent with Patient (minutes): 0 Total Time including non face to face (minutes): 10 Chester [facility] Primary Care Nurse Coordinator [facility] * Telephone Encounter - Justina Banegas MD - 09/06/2023 12:21 PM EDT Yes both sides * Telephone Encounter - Paula Mendez LPN - 09/06/2023 8:59 AM EDT Notified patient that Dr. Banegas sent in an additional week of cefdinir for her. She verbalized understanding. She is asking if CT scan of kidneys will look at both sides because she is having flank pain on both sides. documented in this encounter Plan of Treatment Upcoming Encounters Date Type Department Care Team (Late st Contact Info) Description 09/14/2023 2:00 PM EDT Office Visit General Internal Medicine [facility] Ortiz [address] [place] [address] López Edward MD [address] [place] [address] 09/15/2023 1:00 PM EDT Imaging Radiology [facility] 1st [facility] [address] [place] [address] 09/26/2023 2:00 PM EDT Office Visit Cardiology, [facility] [address] [place] [address] Kelli Travis, PA-C [address] [place] [address] 11/04/2023 1:30 PM EDT Office Visit Neurology, [place] [address] [place] [address] Js Lopez MD [address], [place] [id number] 12/20/2023 2:30 PM EDT Telemedicine Nutrition, [facility] [address] [place] [address] Noemi Raymundo, ARMANI [address] [place] [address] Scheduled Procedures Name Priority Associated Diagnoses Date/Ti me COLONOSCOPY FLEXIBLE PROXIMA L DIAGNOSTIC Recall History of colonic polyps Health Maintenance Due Date Last Done Comments Zoster Vaccines (1 of 2) 1999 DXA Scan 08/05/2021 08/06/2019, 06/2016, 08/20/2015, Additional history exists Mammogram 12/29/2022 12/29/2021, 0 01/2022, 11/18/2020, Additional history exists COVID-19 Vaccine ( season) 2023 05/22/2021, 07/30/2020, 07/09/2020 TSH 12/31/2023 12/30/2022, 08/0 07/2021, 11/11/2021, Additional history exists O2 ASSESSMENT COMPLETED IN PAST YEAR FOR COPD 06/27/2024 06/27/2023 COLONOSCOPY-EVERY 5 YRS AGES 18-100 03/25/2026 03/25/2021, 03/25/2021, 03/25/2021, Additional history exists DTaP,Tdap,and Td Vaccines (3 - Td or Tdap) 11/24/2026 11/24/2016, 05/15/2007 Lipid Panel 06/08/2027 06/08/2022, 05/24, 09/18/2020, Additional history exists Pneumococcal Vaccine: 65+ Years Completed 09/01/2015, 06/04/2014, 04/06/2007 VITAMIN D LEVEL ONCE IN A LIFETIME-USE SMARTSET# [id number] Completed 01/23/2020, 02/08/2017, 11/18/2015, Additional history exists [...] encounter Medical Devices Implanted Type Area Senior Financial Accountant Device Identifier Shelf Expiration Date Model / Serial / Lot [employer], Embosphere, 100-300 Units Implanted:Qty: 1 on 05/21/2019 by Kadeem Ware MD at OR [facility] N/A: Head [employer] 12/20/2021 S220GH / [id number] / [id number] [id number], Bare [place], Axium Prime, Detachable Coil System,[id number] Implanted:Qty: 1 on 05/21/2019 by Kadeem Ware MD at OR [facility] N/A: Head [employer] 10/02/2021 APB-1-2-HX -ES / APB-1-2-HX -ES / [id number] [employer], Bare [place], Axium Prime, Detachable Coil System,[id number] Implanted:Qty: 1 on 05/21/2019 by Kadeem Ware MD at OR [facility] N/A: Head [employer] 03/06/2021 APB-1-3-HX -ES / APB-1-3-HX -ES / [id number] documented as of this encounter Advance Directives Latest Code Status on File Code Status Date Activated Date Inactivated Comments Full Code 05/19/2019 8:38 AM 05/28/2019 7:54 PM This order reflects the patients wishes and were consensually agreed upon. Care Teams Parent Coach Relationship Specialty Start Date End Date López Edward MD [address] [place] [address], [place] [address] PCP - General Internal Medicine 07/14/18 documented as of this encounter
--- OUTSIDE RECORDS SUMMARY | 2024-02-26 03:38 | External Medical Summary | Summary of Care ---
Author Name Unknown Organization [facility] Address [address] [place] [address] Phone [phone] Care Team Providers Care Senior Financial Name Role Phone López Edward MD Primary Care Provider + Reason for Visit * Reason Onset Date Comments Medication Refill 10/21/2023 Encounter Details Date Type Department Care Team (Late st Contact Info) Description 10/21/2023 Refill [facility] [address] [place] [address] Js Lopez MD [address] [place] [address] Essential tremor Allergies Active Allergy [...] mouth daily as needed for Constipation. Active Rtltbxz-Vajwwjy-Wjx hyl Jaskaran 1.2-5.7-6.3 % External Patch Apply [...] program 12/26/2017 12/24/2019 Overview: [facility] Study: Project # [id number], Bending Shed Worker: Ihsan Rucker, PhD. SUMMARY: Goal: Establish test [...] contact study staff at ; after hours Bending Shed Worker via the [facility] hospital hot car operator . Please contact study team before resolving/deleting from patients problem list. Study phone number: [phone]. Diagnosis changed due to Research Module. Go to Snapshot for study details. Encounter for examination fo r normal comparison and control in clinical research program 12/26/2017 01/21/2022 Overview: DO NOT DELETE - [facility] DETECT Study: Project # [id number], Bending Shed Worker: Napoleon Dean, MS, MPH. SUMMARY: Goal: Establish [...] contact study staff at ; after hours Bending Shed Worker via the [facility] hospital hot car operator . - Please contact study team before resolving/deleting from patients problem list. Study phone number: [phone]. Diagnosis changed due to Research Module. Go [...] date the medication was ordered: Pharmacy: [id number] [address] [facility] Is this request for a [...] PM * Telephone Encounter - Pradeep Glass, airport sales agent - 10/21/2023 4:29 PM EDT Pt calling for neuro refill. Warm transferred to specialty line. Thank you, Pradeep Glass Senior Qa Analyst I [facility]) 10/21/2023,4:31 PM documented in this encounter Plan of Treatment Upcoming Encounters Date Type Department Care Team (Late st Contact Info) Description 10/26/2023 2:15 PM EDT Imaging Radiology [facility] [address] [facility] [place] [address] 11/04/2023 1:30 PM EDT Office Visit Neurology, [place] [address] [place] [address] Js Lopez MD [address] [place], [place] [id number] 12/20/2023 2:30 PM EDT [facility] [address] [facility] [place] [address] Noemi Raymundo, ARMANI [facility] [place] [address] 02/20/2024 2:00 PM EDT Imaging Radiology, [address] [place] [address] 04/09/2024 2:00 PM EST Office Visit General Internal Medicine [facility] [address] [place] [address] López Edward MD [address] [facility] [place] [address] Scheduled Procedures Name Priority Associated Diagnoses Date/Ti [...] D LEVEL ONCE IN A LIFETIME-USE SMARTSET# 88055 Completed 01/23/2020, 02/08/2017, 11/18/2015, Additional history exists [...] this encounter Medical Devices Implanted Type Area Laborer Vineyard Device Identifier Shelf Expiration Date Model / Serial / Lot [employer], Embosphere, 100-300 Units Implanted:Qty: 1 on 05/21/2019 by Kadeem Ware MD at OR [facility] N/A: Head [employer] 12/20/2021 S220GH / [id number] / [id number] [id number], Bare [place], Axium Prime, Detachable Coil System,[id number] Implanted:Qty: 1 on 05/21/2019 by Kadeem Ware MD at OR [facility] N/A: Head [employer] 10/02/2021 APB-1-2-HX -ES / APB-1-2-HX -ES / [id number] [id number], Bare [place], Axium Prime, Detachable Coil System,[id number] Implanted:Qty: 1 on 05/21/2019 by Kadeem Ware MD at OR [facility] N/A: Head [employer] 03/06/2021 APB-1-3-HX -ES / APB-1-3-HX -ES / [id number] documented as of this encounter Visit Diagnoses Diagnosis Essential tremor Essential and other specified forms of tremor documented in this encounter Advance Directives * Full Code (Latest Code Status on File) Date Activated Date Inactivated Comments 05/19/2019 8:38 AM 05/28/2019 7:54 PM This order r eflects the patients wishes and were consensually agreed upon. Care Teams Senior Financial Relationship Specialty Start Date End Date López Edward MD [address] [place] [address] PCP - General Internal Medicine 07/14/18 documented as of this encounter
--- OUTSIDE RECORDS SUMMARY | 2024-02-26 03:39 | External Medical Summary | Summary of Care ---
Author Name Unknown Organization [facility] Address [address] [place] [address] Phone [phone] Care Team Providers Care Airport Traffic Controller Name Role Phone López Edward MD Primary Care Provider + Reason for Referral * Precert (Within 10 days (routine)) - Pending Review Specialty Diagnoses / Procedures Referred By Contac t Referred To Contact Radiology Diagnoses Recurrent UTI Procedures CT UROGRAPHY W WO CONTRAST Justina Banegas MD [address] [facility] [place] [address] Referral ID Status Reason Start Date Expiration Date V isits Requested Visits Authorized [id number] Pending Review 09/05/2023 999 999 Reason for Visit * Reason Comments Urinary Tract Infection Symptoms Encounter Details Date Type Department Care Team (Late st Contact Info) Description 09/05/2023 12:20 PM EDT Office Visit General Internal Medicine [place] [address] [place] [address] Justina Banegas MD [facility] [place] [address] Recurrent UTI*; Flank pain; Vaginal burning; Thoracic aortic ectasia (HCC); Irritable bowel syndrome with constipation; Gastroesophageal reflux disease without esophagitis; Esophageal dysmotility; Diastolic dysfunction; Delusional disorder (HCC); Schizoaffective disorder, bipolar type (HCC) Allergies Active Allergy Reactions Criticality Noted Date [...] as of this encounter (statuses as of 09/05/2023) Medications Medication Sig Dispensed Refills Start Date End Date Status VITAMIN D 1000 UNIT PO CAPSIndications:Vi tamin D deficiency 1 capsule daily 30 11 0 Active LAMICTAL 200 MG PO TABS Take 1 Tablet by mouth at bedtime. 0 3 Active Nutritional Supplements (ENSURE) Take by mouth 2 times a day. One can 0 Active acetaminophen (TYLENOL) 500 MG Tablet Take 1 Tablet by mouth every 4 hours as needed for Pain (or Fever. Do not exceed 3000 mg daily of all Acetaminophen products combined.). 0 Active Coenzyme Q10 (COQ10) 100 MG CAPS Take 2 Caps by mouth at bedtime. 0 7 Active Probiotic Product (PROBIOTIC & ACIDOPHILUS EX ST) Capsule Take 1 Cap by mouth daily. 0 7 Active Calcium Carbonate 600 MG Tablet Take 2 Tablets by mouth in the morning. 0 7 Active polyethylene glycol 3350 (MIRALAX) packet Take 1 Packet by mouth daily as needed for Constipation. 0 Active Yeosatl-Eyaujyc-Kc thyl Jaskaran 1.2-5.7-6.3 % External Patch Apply 1 Patch topically to affected area as needed for Pain. For neck and shoulders 0 Active Spacer/Aero-Holdin g Chambers DEVIIndications:Pu lmonary emphysema, unspecified emphysema type (HCC),Oral thrush Use with inhaler. 2 Device 0 9 Active Additional Information Patient not taking.Informant: Patient, Reported on 06/27/2023 triamcinolone acetonide (ARISTOCORT) 0.1 % creamIndications:M edication reaction, initial encounter Apply topically to affected area 2 times a day. To affected area. 60 g 5 0 Active Adapalene 0.1 % External Gel (Differin) APPLY TOPICALLY TO AFFECTED AREA AT BEDTIME. APPLY TO FACE AREA NEEDED 45 g 1 1 Active Additional Information Patient not taking.Informant: Patient, [...] a large muscle every 4 weeks. 0 2 Active Estradiol 0.1 MG/GM Vaginal Cream (Estrace) USE 1/2 APPLICATORFUL INTO VAGINA 2X A WEEK 42.5 g 1 3 Active Additional Information Patient not taking.Reported on 09/05/2023 Famotidine 20 MG Oral Tablet (Pepcid)Indication s:GERD [...] 2 L/min(Oxygen) into nostril at bedtime. 0 3 Active Levothyroxine Sodium 50 MCG Oral [...] AT BEDTIME 630 Tablet 3 4 Active clonazePAM 1 MG Oral Tablet (KlonoPIN)Indicati ons:Essential tremor TAKE 1 TABLET BY MOUTH THREE TIMES A DAY 90 Tablet 2 4 Active Raloxifene HCl 60 MG Oral Tablet (Evista)Indication s:Osteoporosis TAKE 1 TABLET BY MOUTH EVERYDAY AT BEDTIME 90 Tablet 3 4 Active Metamucil Fiber Oral Tablet Chewable Take by mouth. 0 Active Cefdinir 300 MG Oral Capsule (Omnicef)Indicatio ns:Recurrent UTI Take 1 Capsule by mouth in the morning and 1 Capsule before bedtime. Do all this for 7 days. 14 Capsule 0 4 09/12/19 24 Active Carbidopa-Levodopa 25-100 MG Oral Tablet (Sinemet)Indicatio ns:Cervical dystonia,Essential tremor,Parkinsonia n features Take 1/2 tablet at bed time for 1 week, then add extra 1/2 tab each week, up to 1 tab 3 times a day. 90 Tablet 6 4 09/05/19 24 Discontinu ed(Medicat ion List Clean Up) documented as of this encounter (statuses as of 09/05/2023) Active Problems Problem Noted Date Diagnosed Date [...] as of this encounter (statuses as of 09/05/2023) Resolved Problems Problem Noted Date Diagnosed Date [...] program 12/26/2017 12/24/2019 Overview: DO NOT DELETE [employer] DETECT Study: Project # [id number], Sawdust Machine Operator: Ihsan Rucker, PhD. SUMMARY: Goal: Establish [...] contact study staff at ; after hours Sawdust Machine Operator via the [facility] double end tenoner operator . Please contact study team before resolving/deleting from patients problem list. Study phone number: [phone]. Diagnosis changed due to Research Module. Go to Snapshot for study details. Encounter for examination fo r normal comparison and control in clinical research program 12/26/2017 01/21/2022 Overview: DO NOT DELETE - [employer] DETECT Study: Project # [id number], Sawdust Machine Operator: Napoleon Dean, MS, MPH. SUMMARY: Goal: [...] contact study staff at ; after hours Sawdust Machine Operator via the [facility] double end tenoner operator . - Please contact study team before resolving/deleting from patients problem list. Study phone number: [phone]. Diagnosis changed due to Research Module. Go [...] as of this encounter (statuses as of 09/05/2023) Immunizations Name Administration Dates Next Due 01/24/2014,11/08/2013 04/29/2014 COVID-19 mRNA, LNP-s, No Pre serve, 2-Dose Series (T[employer]) 07/30/2020,07/09/2020 COVID-19, mRNA, LNP-s, PF, B ooster, [...] Sign Reading Time Taken Comments Blood Pressure 98/64 09/05/2023 12:32 PM EDT Pulse 72 09/05/2023 12:32 PM EDT Temperature 37 C (98.6 F) 09/05/2023 12:32 PM EDT Respiratory Rate 18 09/05/2023 12:32 PM EDT Oxygen Saturation - - Inhaled Oxygen Concentration - - Weight 44.8 kg (98 lb 11.2 oz) 09/05/2023 12:32 PM EDT Height - - Body Mass Index 18.65 06/21/2023 2:14 PM EST documented in this encounter Functional Status Functional [...] as of this encounter Progress Notes * Justina Banegas MD - 09/05/2023 5:25 PM EDT Images from the original note were not included. History of Present Illness Sirisha Patterson is a 73 year old female that presents for Urinary Tract Infection Symptoms 73 year old YOfemale with PMH as listed below presents here for evaluation of recurrent UTI. Duration of illness: 6-12 months Symptoms present : she's been treated for UTI's several times over the past few months and she justcan't seem to get rid of the infection for very long. Just finished her last pill of cefdinir this morning that she got from [facility] on 08/30 for UTI. She was originally given macrobid the end of July but that didn't treat the infection so they sent in the Cefdinir for 5 days after culture came back E coli. Full report was not available at the time patient was seen She reports left sided flank pain that has persisted for several weeks. UTI symptoms persist despite having completed antibiotics. She also feels like it has a burning sensation in vaginal area all the time even if she does not pee. Feels dry and irritated. Feels like she is drinking so much but not urinating as much. Some chills + Symptoms not present: Vaginal discharge, itching, constipation Have same similar thing in past : Recurrent UTI but not as often but had issue with emptying bladder past Since symptoms started things getting : Worse Used anything for this illness: As above. Also seen by urologist in past and a year ago where she had a cystoscopy done and had normal looking better but did have a postvoid residual Other concerns or issues present : No Physical Exam Vitals: 09/05/23 1232 Temp: 37 C (98.6 F) Pulse: 72 Resp: 18 BP: 98/64 Physical Exam Vitals reviewed. Constitutional: General: She is not in acute distress. Appearance: She is normal weight. She is not ill-appearing. HENT: Head: Normocephalic. Mouth/Throat: Mouth: Mucous membranes are moist. Pharynx: Oropharynx is clear. No oropharyngeal exudate or posterior oropharyngeal erythema. Cardiovascular: Rate and Rhythm: Normal rate and regular rhythm. Heart sounds: Normal heart sounds. No murmur heard. Pulmonary: Effort: Pulmonary effort is normal. No respiratory distress. Breath sounds: Normal breath sounds. No wheezing. Abdominal: General: There is no distension. Palpations: Abdomen is soft. There is no mass. Tenderness: There is abdominal tenderness (In left flank and left upper quadrant, mild in the hypogastric region). Musculoskeletal: General: No swelling or tenderness. Cervical back: No rigidity or tenderness. Right lower leg: No edema. Left lower leg: No edema. Lymphadenopathy: Cervical: No cervical adenopathy. Skin: General: Skin is warm. Neurological: Mental Status: She is alert. I have reviewed the following results: UA from urgent care and CMP Assessment and Plan Recurrent UTI Urine culture reviewed show E coli susceptible to cephalosporin but not to Cipro - CT UROGRAPHY W WO CONTRAST; Future - CBC; Future - COMPREHENSIVE METABOLIC PANEL; Future - Cefdinir 300 MG Oral Capsule (Omnicef); Take 1 Capsule by mouth in the morning and 1 Capsule before bedtime. Do all this for 7 days. Extended for summer more days Flank pain Await CT Vaginal burning Suggest to restart vaginal cream twice a week in the urethra and outside vaginal area Wipe front to back Thoracic aortic ectasia (HCC) Irritable bowel syndrome with constipation Gastroesophageal reflux disease without esophagitis Esophageal dysmotility Diastolic dysfunction Delusional disorder (HCC) Schizoaffective disorder, bipolar type (HCC) Wrap-Up Time: I spent a total of 30-39 minutes (exact time 34 mins) on the date of service in preparation, delivery, and documentation of the care provided to Sirisha Patterson excluding any time spent in the performance of separately billed services. documented in this encounter Nursing Notes * Loree Bah LPN - 09/05/2023 12:29 PM EDT Patient here today because she says she's been treated for UTI's several times over the past few months and she just can't seem to get rid of the infection for very long. Just finished her last pill of cefdinir this morning that she got from [facility] on 08/30 for UTI. She was originally given macrobid the end of July but that didn't treat the infection so they sent in the Cefdinir. She reports left sided flank pain that has persisted for several weeks. UTI symptoms persist despite having completed antibiotics. documented in this encounter Plan of Treatment Upcoming Encounters Date Type Department Care Team (Late st Contact Info) Description 09/14/2023 2:00 PM EDT Office Visit General Internal Medicine [address] [place] [address] [place] [address] López Edward MD 200 [facility] [place] [address] 09/15/2023 1:00 PM EDT Imaging Radiology [facility] [place] [address] 09/26/2023 2:00 PM EDT Office Visit Cardiology, [facility] [address] [facility] [place] [address] Kelli Travis PA-C [address] [place] [address] 11/04/2023 1:30 PM EDT Office Visit Neurology, [place] [address] [place] [address] Js Lopez MD [address] [place] [address] 12/20/2023 2:30 PM EDT Telemedicine Nutrition, [facility] [address] [facility] [place] [address] Noemi Raymundo, ARMANI [facility] [address] Scheduled Orders Name Type Priority Associated Diagnoses Orde r Schedule CT UROGRAPHY W WO CONTRAST Medical Imaging Routine Recurrent UTI Expected: 09/05/2023, Expires: 10/04/2024 CBC Lab Routine Recurrent UTI Expected: 09/05/2023 (Approximate), Expires: 09/04/2024 COMPREHENSIVE METABOLIC PANEL Lab Routine Recurrent UTI Expected: 09/05/2023 (Approximate), Expires: 09/04/2024 Scheduled Procedures Name Priority Associated Diagnoses Date/Ti me COLONOSCOPY FLEXIBLE PROXIMA L DIAGNOSTIC Recall History of colonic polyps Health Maintenance Due Date Last Done Comments Zoster Vaccines (1 of 2) 1999 DXA Scan 08/05/2021 08/06/2019, 06/2016, 08/20/2015, Additional history exists Mammogram 12/29/2022 12/29/2021, 01/2022, 11/18/2020, Additional history exists COVID-19 Vaccine (4 - 2022-24 season) 2023 05/22/2021, 07/30/2020, 07/09/2020 TSH 12/31/2023 [...] D LEVEL ONCE IN A LIFETIME-USE SMARTSET# [id number] Completed 01/23/2020, 02/08/2017, 11/18/2015, Additional history exists [...] this encounter Medical Devices Implanted Type Area Salvage Determiner Device Identifier Shelf Expiration Date Model / Serial / Lot [employer]ex Inc, Embosphere, 100-300 Units Implanted:Qty: 1 on 05/21/2019 by Kadeem Ware MD [place] [facility] [place]: Head [employer] 12/20/2021 S220GH / [id number] / [id number] Inc, Bare Mechoopda, Axium Prime, Detachable Coil System,[id number] Implanted:Qty: 1 on 05/21/2019 by Kadeem Ware MD [place] [facility] [place]: Head [employer] 10/02/2021 APB-1-2-HX -ES / APB-1-2-HX -ES / [id number] [id number] Inc, Bare Mechoopda, Axium Prime, Detachable Coil System,[id number] Implanted:Qty: 1 on 05/21/2019 by Kadeem Ware MD [place] [facility] [place]: Head [employer] 03/06/2021 APB-1-3-HX -ES / APB-1-3-HX -ES / [id number] documented as of this encounter Visit Diagnoses Diagnosis Recurrent UTI- Primary Urinary tract infection, site not specified Flank pain Abdominal pain, unspecified site Vaginal burning Other specified symptom associated with female genital organs Thoracic aortic ectasia (HCC) Thoracic aortic ectasia Irritable bowel syndrome with constipation Irritable bowel syndrome Gastroesophageal reflux disease without esophagitis Esophageal reflux Esophageal dysmotility Dyskinesia of esophagus Diastolic dysfunction Heart disease, unspecified Delusional disorder (HCC) Schizoaffective disorder, bipolar type (HCC) Schizoaffective disorder, unspecified condition documented in this encounter Advance Directives Latest Code Status on File Code Status Date Activated Date Inactivated Comments Full Code 05/19/2019 8:38 AM 05/28/2019 7:54 PM This order reflects the patients wishes and were consensually agreed upon. Care Teams Airport Traffic Controller Relationship Specialty Start Date End Date López Edward MD [address] [place] [id number] PCP - General Internal Medicine 07/14/18 documented as of this encounter
--- OUTSIDE RECORDS SUMMARY | 2024-02-26 03:39 | External Medical Summary | Summary of Care ---
Author Name Unknown Organization [facility] Address [address] [place] [address] Phone [phone] Care Team Providers Care Zyglo Technician Name Role Phone López Edward MD Primary Care Provider + Encounter Details Date Type Department Care Team (Late st Contact Info) Description 08/31/2023 Result Scan Unspecified Department <No scans attached> Allergies Active Allergy Reactions Criticality Noted Date [...] daily as needed for Constipation. 0 Active Zupmmuw-Aqijwtl-Kki hyl Jaskaran 1.2-5.7-6.3 % External Patch Apply [...] OTHER MEDS). 90 Tablet 3 05/25/2023 Active Carbidopa-Levodopa 25-100 MG Oral Tablet (Sinemet)Indication s:Cervical dystonia,Essential tremor,Parkinsonian features Take 1/2 tablet at bed time for 1 week, then add extra 1/2 tab each week, up to 1 tab 3 times a day. 90 Tablet 6 06/27/2023 Active Dicyclomine HCl 10 MG Oral Capsule [...] program 12/26/2017 12/24/2019 Overview: DO NOT DELETE [employer] DETECT Study: Project # [id number], Truck Driver Flatbed: Ihsan Rucker, PhD. SUMMARY: Goal: Establish test [...] contact study staff at ; after hours Truck Driver Flatbed via the [facility] wood web weaving machine operator . Please contact study team before resolving/deleting from patients problem list. Study phone number: [phone]. Diagnosis changed due to Research Module. Go to Snapshot for study details. Encounter for examination fo r normal comparison and control in clinical research program 12/26/2017 01/21/2022 Overview: DO NOT DELETE - [employer] DETECT Study: Project # [id number], Truck Driver Flatbed: Napoleon Dean, MS, MPH. SUMMARY: Goal: Establish [...] contact study staff at ; after hours Truck Driver Flatbed via the [facility] wood web weaving machine operator . - Please contact study team before resolving/deleting from patients problem list. Study phone number: [phone]. Diagnosis changed due to Research Module. Go [...] PM EDT Office Visit [facility] [place] [address] [place] [address] Justina Banegas MD [address] [place] [address] Arrived 09/14/2023 2:00 PM EDT Office Visit General Internal Medicine [address] [place] [address] [place] [address] López Edward MD [address] [facility] [place] [address] 09/26/2023 2:00 PM EDT Office Visit Cardiology, [facility] [address] [facility] [address] Kelli Travis, PARejiC [address] [place] [address] 11/04/2023 1:30 PM EDT Office Visit Neurology, [place] [address] [place] [address] Js Lopez MD [address] [place] [address] 12/20/2023 2:30 PM EDT [facility] [address] [facility] [place] [address] Noemi Raymundo, ARMANI [address] [place] [address] Scheduled Procedures Name Priority Associated Diagnoses Date/Ti [...] D LEVEL ONCE IN A LIFETIME-USE SMARTSET# [id number] Completed 01/23/2020, 02/08/2017, 11/18/2015, Additional history exists [...] this encounter Medical Devices Implanted Type Area Boiling House Oiler Device Identifier Shelf Expiration Date Model / Serial / Lot [employer], Embosphere, 100-300 Units Implanted:Qty: 1 on 05/21/2019 by Kadeem Ware MD at [place] [facility] [place]: Head [employer] 12/20/2021 S220GH / [id number] / [id number] Inc, Bare [place], Axium Prime, Detachable Coil System,[id number] Implanted:Qty: 1 on 05/21/2019 by Kadeem Ware MD at [place] [facility] [place]: Head [employer] 10/02/2021 APB-1-2-HX -ES / APB-1-2-HX -ES / [id number], Bare [place], Axium Prime, Detachable Coil System,[id number] Implanted:Qty: 1 on 05/21/2019 by Kadeem Ware MD at [place] [facility] [place]/A: Head [employer] 03/06/2021 APB-1-3-HX -ES / APB-1-3-HX -ES / [id number] documented as of this encounter Procedures Procedure Name Priority Date/Time Associated Diagnosis Comments OUTSIDE LAB RESULTS 08/31/2023 documented in this encounter Results * OUTSIDE LAB RESULTS (08/31/2023) 08/31/2023 No Physician Data Unknown LABORATORY documented in this encounter Advance Directives Latest Code Status on File Code Status Date Activated Date Inactivated Comments Full Code 05/19/2019 8:38 AM 05/28/2019 7:54 PM This order reflects the patients wishes and were consensually agreed upon. Care Teams Zyglo Technician Relationship Specialty Start Date End Date López Edward MD [address] [place] [address] PCP - General Internal Medicine 07/14/18 documented as of this encounter
--- OUTSIDE RECORDS SUMMARY | 2024-02-26 03:39 | External Medical Summary | Summary of Care ---
Author Name Unknown Organization [facility] Address [address] [place] [address] Phone [phone] Care Team Providers Care Photo Tech Name Role Phone López Edward MD Primary Care Provider + Reason for Visit * Reason Onset Date Comments Status Check 09/06/2023 Encounter Details Date Type Department Care Team (Late st Contact Info) Description 09/06/2023 Telephone General Internal Medicine [facility] [address] [place] [address] Justina Banegas MD [address] [place] [address] Status Check Allergies Active Allergy Reactions Criticality [...] daily as needed for Constipation. 0 Active Bqbbbiz-Anantni-Tgm hyl Jaskaran 1.2-5.7-6.3 % External Patch Apply [...] DELETE [facility] DETECT Study: Project # [id number], Returns Supervisor: Ihsan Rucker, PhD. SUMMARY: Goal: Establish test [...] contact study staff at ; after hours Returns Supervisor via the [facility] custom feed mill operator helper . Please contact study team before resolving/deleting from patients problem list. Study phone number: [phone]. Diagnosis changed due to Research Module. Go to Snapshot for study details. Encounter for examination fo r normal comparison and control in clinical research program 12/26/2017 01/21/2022 Overview: DO NOT DELETE - [facility] Study: Project # [id number], Returns Supervisor: Napoleon Dean, MS, MPH. SUMMARY: Goal: Establish [...] contact study staff at ; after hours Returns Supervisor via the [facility] hospital custom feed mill operator helper . - Please contact study team before resolving/deleting from patients problem list. Study phone number: [phone]. Diagnosis changed due to Research Module. Go [...] mRNA, LNP-s, No Pre serve, 2-Dose Series (Sosei) 07/30/2020,07/09/2020 COVID-19, mRNA, LNP-s, PF, B ooster, [...] 09/06/2023 1:11 PM EDT Message sent via [email or web address]. Provider to address: n/a Reason for Call: Status Check Contact: [facility] Contact Type: Information Outcome: See above Face to face time spent with Patient (minutes): 0 Total Time including non face to face (minutes): 10 Chester Rutledge [facility] Primary Care Nurse Coordinator [facility] (Helping out) * Telephone Encounter - Justina [...] PM EDT Office Visit General Internal Medicine [facility] [address] [facility] [place] [address] López Edward MD [address] [facility] [place] [address] 09/15/2023 1:00 PM EDT Imaging Radiology [facility] [address] [facility] [place] [address] 09/26/2023 2:00 PM EDT Office Visit Cardiology, [facility] [address] [facility] [place] [address] Kelli Travis PA-C [address] [facility] [place] [address] 11/04/2023 1:30 PM EDT Office Visit Neurology, [place] [facility] [address] [place] [address] Js Lopez MD [address] [place] [address] 12/20/2023 2:30 PM EDT Telemedicine Dominick, Fili Gross [address] [facility] [place] [address] Noemi Raymundo, ARMANI [address] [place] [address] Scheduled Procedures Name Priority Associated Diagnoses Date/Ti me COLONOSCOPY FLEXIBLE PROXIMA L DIAGNOSTIC Recall History of colonic polyps Health Maintenance Due Date Last Done Comments Zoster Vaccines (1 of 2) 1999 DXA Scan 08/05/2021 08/06/2019, 1006/2016, 08/20/2015, Additional [...] D LEVEL ONCE IN A LIFETIME-USE SMARTSET# [id number] Completed 01/23/2020, 02/08/2017, 11/18/2015, Additional history exists [...] this encounter Medical Devices Implanted Type Area Varnish Maker Device Identifier Shelf Expiration Date Model / Serial / Lot [employer], Embosphere, 100-300 Units Implanted:Qty: 1 on 05/21/2019 by Kadeem Ware MD at OR [facility] N/A: Head [employer] 12/20/2021 [id number] / [id number] / [id number] [employer], Bare [place] Axium Prime, Detachable Coil System,[id number] Implanted:Qty: 1 on 05/21/2019 by Kadeem Ware MD at OR [facility] N/A: Head [employer] 10/02/2021 APB-1-2-HX -ES / APB-1-2-HX -ES / [id number] [id number], Bare [place] Axium Prime, Detachable Coil System,[id number] Implanted:Qty: 1 on 05/21/2019 by Kadeem Ware MD at OR [facility] N/A: Head [employer] 03/06/2021 APB-1-3-HX -ES / APB-1-3-HX -ES / [id number] documented as of this encounter Advance Directives Latest Code Status on File Code Status Date Activated Date Inactivated Comments Full Code 05/19/2019 8:38 AM 05/28/2019 7:54 PM This order reflects the patients wishes and were consensually agreed upon. Care Teams Photo Tech Relationship Specialty Start Date End Date López Edward MD [address] [place] [address] PCP - General Internal Medicine 07/14/18 documented as of this encounter
[2024-02-26 03:49] LABS: Basophils # (auto) 0.03 K/uL (0.00-0.20); Basophils % (auto) 0.5 %; Eosinophils # (auto) 0.21 K/uL (0.00-0.50); Eosinophils % (auto) 3.7 %; Hematocrit (blood only) 35.7 % (37.0-47.0); Hemoglobin 11.8 g/dl (12.0-16.0); Immature Granulocytes # (auto) 0.01 K/uL (0.01-0.20); Immature Granulocytes % (auto) 0.2 %; Lymphocytes # (auto) 1.93 K/uL (1.20-3.40); Lymphocytes % (auto) 33.8 %; Mean Corpuscular Hemoglobin 30.9 pg (25.0-34.0); Mean Corpuscular Hgb Conc 33.1 g/dL (32.0-36.0); Mean Corpuscular Volume 93.5 fL (80.0-100.0); Mean Platelet Volume 9.4 fL (9.4-12.4); Monocytes # (auto) 0.42 K/uL (0.11-0.59); Monocytes % (auto) 7.4 %; Neutrophils # (auto) 3.11 K/uL (1.40-6.50); Neutrophils % (auto) 54.4 %; Platelet Count 423 K/uL (130-400); RDW Coefficient of Variation 11.8 % (11.5-14.5); RDW Standard Deviation 40.2 fL (36.4-46.3); Red Blood Count 3.82 M/uL (4.20-5.40); White Blood Count 5.71 K/ul (4.8-10.8)
[2024-02-26 04:04] LABS: Alanine Aminotransferase 4 U/L (7-52); Albumin Globulin Ratio 1.4 (0.9-2); Albumin Level 3.9 gm/dl (3.4-5.0); Alkaline Phosphatase 71 U/L (34-104); Anion Gap 7 (3-11); Aspartate Aminotransferase 23 U/L (13-39); BUN Creatinine Ratio 16.7 (10-20); Bilirubin,Total 0.3 mg/dl (0.2-1.0); Blood Urea Nitrogen 9 mg/dl (6-23); Calcium 8.8 mg/dl (8.6-10.3); Carbon Dioxide 28 mmol/L (21-32); Chloride 100 mmol/L (98-107); Globulin 2.7 gm/dl (2.5-4.0); Glucose 93 mg/dl (70-99(Fasting)); Lipase 52 U/L (11-82); Potassium 3.8 mmol/L (3.5-5.1); Sodium 135 mmol/L (136-145); Total Protein 6.6 gm/dl (6.0-8.3)
[2024-02-26 04:09] LABS: Troponin I High Sensitivity 4.1 pg/ml (0-14)
[2024-02-26 04:55] LABS: Magnesium 2.1 mg/dl (1.7-2.4)
--- NOTE | 2024-02-26 05:01 | History & Physical Report ---
Date of Service February 26, 2024 History of Present Illness Primary Care Provider: López Edward MD Allergies Allergy/AdvReac Type Severity Reaction Status Date / Time topiramate Allergy Severe Breathing/eye Verified 04/29/23 09:32 problems adhesive Allergy Intermediate Rash, Verified 04/29/23 09:32 blisters beclomethasone [From Qvar] Allergy Intermediate Lip Verified 04/29/23 09:32 swelling doxycycline Allergy Intermediate Rash Verified 04/29/23 09:32 gabapentin Allergy Intermediate Rash Verified 04/29/23 09:32 nickel Allergy Intermediate Rash Verified 04/29/23 09:32 albuterol AdvReac Unknown Lightheaded, Verified 04/29/23 09:32 difficulty breathing ephedrine AdvReac Unknown Reacts Verified 04/29/23 09:32 with another med that she is no longer taking epinephrine AdvReac Unknown reacts to Verified 04/29/23 09:32 a medication that she is no longer taking levalbuterol AdvReac Unknown Made Verified 04/29/23 09:32 breathing worse per pt procaine [From Novocain] AdvReac Unknown Reacts to Verified 04/29/23 09:32 nardil med pt was previously but no longer taking Home Medications Medication Instructions Recorded Confirmed Type coenzyme Q10 100 mg capsule 200 mg PO HS 02/05/19 04/29/23 History estradiol 0.01% (0.1 mg/gram) 0.01 % vaginal 2XWK 02/05/19 04/29/23 History vaginal cream lamotrigine 200 mg tablet 200 mg PO HS 02/05/19 04/29/23 History primidone 50 mg tablet 100 mg PO BID 02/05/19 04/29/23 History Lactobacillus 1 cap PO HS 02/07/19 04/29/23 History acidophilus-Bifidobac.animalis 2.5 billion cell capsule (Daily Probiotic) polyethylene glycol 3350 17 17 gm PO UD PRN Constipation 02/07/19 04/29/23 History gram/dose oral powder (Miralax) primidone 50 mg tablet 150 mg PO HS 03/19/19 04/29/23 History raloxifene 60 mg tablet 60 mg PO HS 03/19/19 04/29/23 History clonazepam 1 mg tablet 1 mg PO TID 05/19/19 04/29/23 History calcium 600 mg (as 2 tab PO HS 10/10/19 04/29/23 History carbonate)-vitamin D3 5 mcg (200 unit) tablet (Calcium 600 + D(3)) food supplemt, lactose-reduced 1 ea PO BID 01/09/20 04/29/23 History (Ensure oral liquid) triamcinolone acetonide 0.1 % 1 applic topical BID PRN Rash 01/17/20 04/29/23 History topical cream omeprazole 20 mg tablet,delayed 20 mg PO QAM 02/27/20 04/29/23 History release acetaminophen 500 mg tablet 1,000 mg PO Q6H PRN Pain 12/31/21 04/29/23 History levothyroxine 50 mcg tablet 50 mcg PO QAM 12/31/21 04/29/23 History dicyclomine 10 mg capsule 10 mg PO BID 11/03/22 04/29/23 History famotidine 20 mg tablet 20 mg PO BID 11/03/22 04/29/23 History linaclotide 145 mcg capsule 145 mcg PO QAM 11/03/22 04/29/23 History (Linzess) rosuvastatin 20 mg tablet 20 mg PO QAM 11/03/22 04/29/23 History ibuprofen 600 mg tablet 600 mg PO Q6H #20 tabs 04/29/23 Rx Past Med/Surg History Problem List Spasmodic torticollis Per records, pt denies pt states FROM neck Abnormal finding on CT scan Schizophrenia schizoaffective disorder per PCP note 04/19/23 Movement disorder Hypothyroid (Chronic) Biliary sludge (Acute) Bipolar 1 disorder (Chronic) Recurrent falls last one 07/2021; bump on head-"leakage noted from previous hematoma" COPD (chronic obstructive pulmonary disease) (Chronic) inhaler daily--chronic cough/wheeze daily per pt Osteoporosis (Chronic) Tremor (Chronic) Dystonia (Chronic) PTSD (post-traumatic stress disorder) (Chronic) hx Orthostatic hypotension (Chronic) Major depressive disorder (Chronic 11/01/11) History of left heart catheterization (LHC) (Chronic) 2012 @ [facility]--no stents History of appendectomy (Chronic) History of dilation and curettage (Chronic) mult History of laparotomy (Chronic) x2---uterine fibroids H/O esophagogastroduodenoscopy (Chronic) Medical History Spasmodic torticollis Per records, pt denies pt states FROM neck Transaminitis Osteoporosis Orthostatic hypotension Neuropathic tremor essential tremor; follows with neurology [place] Hypothyroidism GERD (gastroesophageal reflux disease) with esophageal dysmotility Chronic obstructive pulmonary disease 2L O2 HS Seborrheic keratosis Nocturnal hypoxia COPD with nocturnal hypoxia; uses 2L O2 HS Mucocele of lip Limb pain Generalized osteoarthritis of multiple sites Depression Anxiety Actinic keratitis Constipation Liver mass PCP monitoring Diastolic heart failure follows with Dr. Corona Schizophrenia schizoaffective disorder per PCP note 04/19/23 Balance problem Poor memory History of subdural hematoma 02/2019 fall; she is s/p coil embolization of middle meningeal artery Pancreatic mass pcp monitoring; per pt "told she no longer has it" Adrenal insufficiency Lung nodule monitoring Spinal stenosis Degenerative disc disease Chronic back pain Kidney stones hx-passed on own Anemia Hearing deficit Stroke 1983, numbness of left side of face Ectopic atrial tachycardia follows Dr. Corona Thoracic aortic ectasia follows Dr. Corona Lumbar compression fracture PTSD (post-traumatic stress disorder) hx Dystonia Bipolar 1 disorder Surgical History Hx laparoscopic cholecystectomy 11/20/22 [facility]: [place]: MAC#3, ETT#7, atraumatic DL x 1 Hx of tubal ligation History of transesophageal echocardiography (SHAYE) S/P subdural hematoma evacuation [facility] > November 2019 coil embolization of middle meningeal artery History of colonoscopy with polypectomy History of tooth extraction all upper teeth/most of lower History of tonsillectomy and adenoidectomy History of bilateral cataract extraction per pt had it done twice on both eyes Status post glaucoma surgery unsure which eye H/O esophagogastroduodenoscopy History of laparotomy x2---uterine fibroids History of dilation and curettage mult History of appendectomy History of left heart catheterization (LHC) 2012 @ [facility]--no stents Family History Brother Family history of diabetes mellitus Family hx colonic polyps Son Family history of diabetes mellitus Aunt Family history of diabetes mellitus Uncle Family history of diabetes mellitus Mother Family hx of colon cancer Cancer Hypertension Sister Family hx of colon cancer Colorectal cancer Other No family history of adverse response to anesthesia Social History Smoking Status: Former smoker Tobacco Type: Cigarettes Age Started Using Tobacco: 37; Age Quit Using Tobacco: 62; packs per day: 1.5; Second Hand Exposure: No; Do You Dip or Chew Tobacco: No; Hx Alcohol Use: Yes Alcohol type: wine and hard liquor Alcohol Intake Frequency: Monthly or Less Hx Substance Use: No Preferred Language: Upper Sorbian Communication Ability: Effective Director Of Pediatric Rehabilitation Required: No Beliefs That Will Affect Care: None marital status: Current Living Situation: Alone current occupational status: retired How many Children do You have: 3 Feels Safe at Home: Yes Assistive Devices: Cane, Denture - Upper, Denture - Lower, Glasses, Oxygen - at Night and Walker Results & Data Results & Data Vital Signs (Past 12 Hours) Vital Signs Temp Pulse Resp BP Pulse Ox O2 Del Method 02/26/24 03:43 69 02/26/24 03:38 74 16 99 Room Air 02/26/24 03:38 99 Room Air 02/26/24 03:30 36.9 C 74 16 116/64 99 Room Air Laboratory Results Laboratory Results WBC 5.71 K/ul (4.8-10.8) 02/26/24 03:35 RBC 3.82 M/uL (4.20-5.40) L 02/26/24 03:35 Hgb 11.8 g/dl (12.0-16.0) L 02/26/24 03:35 Hct 35.7 % (37.0-47.0) L 02/26/24 03:35 MCV 93.5 fL (80.0-100.0) 02/26/24 03:35 MCH 30.9 pg (25.0-34.0) 02/26/24 03:35 MCHC 33.1 g/dL (32.0-36.0) 02/26/24 03:35 RDW Std Deviation 40.2 fL (36.4-46.3) 02/26/24 03:35 RDW Coeff of Paul 11.8 % (11.5-14.5) 02/26/24 03:35 Plt Count 423 K/uL (130-400) H 02/26/24 03:35 MPV 9.4 fL (9.4-12.4) 02/26/24 03:35 Immature Gran % (Auto) 0.2 % 02/26/24 03:35 Neut % (Auto) 54.4 % 02/26/24 03:35 Lymph % (Auto) 33.8 % 02/26/24 03:35 [place] % (Auto) 7.4 % 02/26/24 03:35 Eos % (Auto) 3.7 % 02/26/24 03:35 Baso % (Auto) 0.5 % 02/26/24 03:35 Neut # (Auto) 3.11 K/uL (1.40-6.50) 02/26/24 03:35 Lymph # (Auto) 1.93 K/uL (1.20-3.40) 02/26/24 03:35 [place] # (Auto) 0.42 K/uL (0.11-0.59) 02/26/24 03:35 Eos # (Auto) 0.21 K/uL (0.00-0.50) 02/26/24 03:35 Baso # (Auto) 0.03 K/uL (0.00-0.20) 02/26/24 03:35 Immature Gran # (Auto) 0.01 K/uL (0.01-0.20) 02/26/24 03:35 Sodium 135 mmol/L (136-145) L 02/26/24 03:35 Potassium 3.8 mmol/L (3.5-5.1) 02/26/24 03:35 Chloride 100 mmol/L (98-107) 02/26/24 03:35 Carbon Dioxide 28 mmol/L (21-32) 02/26/24 03:35 Anion Gap 7 (3-11) 02/26/24 03:35 BUN 9 mg/dl (6-23) 02/26/24 03:35 Creatinine 0.54 mg/dl (0.6-1.2) L 02/26/24 03:35 Est Cr Clr Drug Dosing Not Reportable 02/26/24 03:35 eGFR 96.55 02/26/24 03:35 BUN/Creatinine Ratio 16.7 (10-20) 02/26/24 03:35 Glucose 93 mg/dl (70-99(Fasting)) 02/26/24 03:35 Calcium 8.8 mg/dl (8.6-10.3) 02/26/24 03:35 Magnesium 2.1 mg/dl (1.7-2.4) 02/26/24 03:35 Total Bilirubin 0.3 mg/dl (0.2-1.0) 02/26/24 03:35 AST 23 U/L (13-39) 02/26/24 03:35 ALT 4 U/L (7-52) L 02/26/24 03:35 Alkaline Phosphatase 71 U/L (34-104) 02/26/24 03:35 Troponin I High Sens 4.1 pg/ml (0-14) 02/26/24 03:35 Total Protein 6.6 gm/dl (6.0-8.3) 02/26/24 03:35 Albumin 3.9 gm/dl (3.4-5.0) 02/26/24 03:35 Globulin 2.7 gm/dl (2.5-4.0) 02/26/24 03:35 Albumin/Globulin Ratio 1.4 (0.9-2) 02/26/24 03:35 Lipase 52 U/L (11-82) 02/26/24 03:35
[2024-02-26] MEDS ORDERED: NITROGLYCERIN SL 0.4 MG/TAB TAB SL PRN (05:26)
--- NOTE | 2024-02-26 05:27 | Communication Note ---
Date of Service: February 26, 2024
[2024-02-26] MEDS ORDERED: oxyCODONE HCL IR 5 MG TAB (IMMEDIATE RELEASE) PO PRN (05:28)
[2024-02-26] MEDS: POTASSIUM CHLORIDE CRTAB 20 MEQ TABCR PO STA (05:55)
[2024-02-26] MEDS: NSS + 20MEQ KCL 20 MEQ/1,000 ML BAG IV ONE (06:30)
--- NOTE | 2024-02-26 06:33 | Emergency Department Note ---
Impression & Plan Chest pain, Paroxysmal ventricular fibrillation ED Provider Note NAME: CARA ARAGON AGE: 73 SEX: F : 1950 ARRIVES VIA: Ambulance INFORMANT: Patient, ED PROVIDER(S): Jovan Camacho MD CHIEF COMPLAINT: Chest pain HPI: This is a 73-year-old female presenting for chest pain. Patient notes that she is woken at 2 in the morning with chest pain. Patient notes that her pain rating to her jaw and back. She waited about 30 minutes prior to calling EMS to see if it subside. Did not subside. She notes that she had taken aspirin. Otherwise patient notes no current shortness of breath, fevers or chills. She does note some slight pain that is persistent at this time but is much less than previous. ROS: See above HPI for pertinent positives & negatives. A total of 10 systems reviewed and were otherwise negative. PAST MEDICAL HISTORY: See Below PAST SURGICAL HISTORY: See Below FAMILY HISTORY: See Below SOCIAL HISTORY: See Below HOME MEDICATIONS: See Below ALLERGIES: See Below VITALS: See Below PHYSICAL EXAMINATION: General: resting comfortably in no acute distress Head: Normocephalic and atraumatic Eyes: Normal inspection, extraocular muscles intact Ear, nose, throat: Normal external exam Neck: Normal range of motion Respiratory: lungs clear to auscultation bilaterally Cardiovascular: Regular rate/rhythm, no murmur GI: soft, nontender, no guarding or rebound Extremities: nontender, moves all extremities Neuro: The patient awake and alert, appropriately conversive, no focal deficits, symmetric faces Skin: Warm, dry, and intact MEDICAL DECISION MAKING: This is a 73-year-old female senting for chest pain. While there she was in the room, she observed patient go into a possible V-fib episode, asymptomatic. I do see rhythm strip that goes from sinus rhythm to a wide-complex tachycardia. Patient was asymptomatic. The nurse does report that the patient was not tremulous. -Bloodwork is reviewed showing no significant leukocytosis, anemia, electrolyte or creatinine abnormality -Troponin currently negative -Chest Xray independently interpreted by me showing no pneumothorax, focal opacity, or pleural effusions. -Due to patient's current chest pain as well as this possible V-fib episode versus artifact, will admit for further evaluation and monitoring. Care discussed Dr. Anand for admission Differential diagnosis: ACS, PE, dissection, pneumonia ER treatment provided: See below Diagnostics interpreted by me: ECG: ECG independently interpreted by me with normal sinus rhythm, rate of 72, normal axis, normal NV, normal QRS, normal QTc, no ST segment elevations consistent with STEMI criteria Cardiac Monitoring: An order was placed for continuous cardiac monitoring. The monitor shows a rate of 67 with sinus rhythm. Laboratory studies: As stated above and show below. Imaging studies: See below. Past Med/Surg History Problem List Paroxysmal ventricular fibrillation (Acute) Chest pain (Acute) Spasmodic torticollis Per records, pt denies pt states FROM neck Abnormal finding on CT scan Schizophrenia schizoaffective disorder per PCP note 04/19/23 Movement disorder Hypothyroid (Chronic) Biliary sludge (Acute) Bipolar 1 disorder (Chronic) Recurrent falls last one 07/2021; bump on head-"leakage noted from previous hematoma" COPD (chronic obstructive pulmonary disease) (Chronic) inhaler daily--chronic cough/wheeze daily per pt Osteoporosis (Chronic) Tremor (Chronic) Dystonia (Chronic) PTSD (post-traumatic stress disorder) (Chronic) hx Orthostatic hypotension (Chronic) Major depressive disorder (Chronic 11/01/11) History of left heart catheterization (LHC) (Chronic) 2012 @ [facility]--no stents History of appendectomy (Chronic) History of dilation and curettage (Chronic) mult History of laparotomy (Chronic) x2---uterine fibroids H/O esophagogastroduodenoscopy (Chronic) Medical History Spasmodic torticollis Per records, pt denies pt states FROM neck Transaminitis Osteoporosis Orthostatic hypotension Neuropathic tremor essential tremor; follows with neurology [place] Hypothyroidism GERD (gastroesophageal reflux disease) with esophageal dysmotility Chronic obstructive pulmonary disease 2L O2 HS Seborrheic keratosis Nocturnal hypoxia COPD with nocturnal hypoxia; uses 2L O2 HS Mucocele of lip Limb pain Generalized osteoarthritis of multiple sites Depression Anxiety Actinic keratitis Constipation Liver mass PCP monitoring Diastolic heart failure follows with Dr. Corona Schizophrenia schizoaffective disorder per PCP note 04/19/23 Balance problem Poor memory History of subdural hematoma 02/2019 fall; she is s/p coil embolization of middle meningeal artery Pancreatic mass pcp monitoring; per pt "told she no longer has it" Adrenal insufficiency Lung nodule monitoring Spinal stenosis Degenerative disc disease Chronic back pain Kidney stones hx-passed on own Anemia Hearing deficit Stroke 1983, numbness of left side of face Ectopic atrial tachycardia follows Dr. Corona Thoracic aortic ectasia follows Dr. Corona Lumbar compression fracture PTSD (post-traumatic stress disorder) hx Dystonia Bipolar 1 disorder Surgical History Hx laparoscopic cholecystectomy 11/20/22 [facility]: [place]: MAC#3, ETT#7, atraumatic DL x 1 Hx of tubal ligation History of transesophageal echocardiography (SHAYE) S/P subdural hematoma evacuation [facility] [place] > November 2019 coil embolization of middle meningeal artery History of colonoscopy with polypectomy History of tooth extraction all upper teeth/most of lower History of tonsillectomy and adenoidectomy History of bilateral cataract extraction per pt had it done twice on both eyes Status post glaucoma surgery unsure which eye H/O esophagogastroduodenoscopy History of laparotomy x2---uterine fibroids History of dilation and curettage mult History of appendectomy History of left heart catheterization (LHC) 2012 @ [facility]--no stents Family History Brother Family history of diabetes mellitus Family hx colonic polyps Son Family history of diabetes mellitus Aunt Family history of diabetes mellitus Uncle Family history of diabetes mellitus Mother Family hx of colon cancer Cancer Hypertension Sister Family hx of colon cancer Colorectal cancer Other No family history of adverse response to anesthesia Social History Smoking Status: Former smoker Tobacco Type: Cigarettes Age Started Using Tobacco: 37; Age Quit Using Tobacco: 62; packs per day: 1.5; Second Hand Exposure: No; Do You Dip or Chew Tobacco: No; Hx Alcohol Use: Yes Alcohol type: wine and hard liquor Alcohol Intake Frequency: Monthly or Less Hx Substance Use: No Preferred Language: Greek Communication Ability: Effective Gas Plumber Required: No Beliefs That Will Affect Care: None marital status: Current Living Situation: Alone current occupational status: retired How many Children do You have: 3 Feels Safe at Home: Yes Assistive Devices: Cane, Denture - Upper, Denture - Lower, Glasses, Oxygen - at Night and Walker Allergies Allergies Allergy/AdvReac Type Severity Reaction Status Date / Time topiramate Allergy Severe Breathing/eye Verified 04/29/23 09:32 problems adhesive Allergy Intermediate Rash, Verified 04/29/23 09:32 blisters beclomethasone [From Qvar] Allergy Intermediate Lip Verified 04/29/23 09:32 swelling doxycycline Allergy Intermediate Rash Verified 04/29/23 09:32 gabapentin Allergy Intermediate Rash Verified 04/29/23 09:32 nickel Allergy Intermediate Rash Verified 04/29/23 09:32 albuterol AdvReac Unknown Lightheaded, Verified 04/29/23 09:32 difficulty breathing ephedrine AdvReac Unknown Reacts Verified 04/29/23 09:32 with another med that she is no longer taking epinephrine AdvReac Unknown reacts to Verified 04/29/23 09:32 a medication that she is no longer taking levalbuterol AdvReac Unknown Made Verified 04/29/23 09:32 breathing worse per pt procaine [From Novocain] AdvReac Unknown Reacts to Verified 04/29/23 09:32 nardil med pt was previously but no longer taking Home Meds Home Medications Medication Instructions Recorded Confirmed coenzyme Q10 100 mg capsule 200 mg PO HS 02/05/19 04/29/23 estradiol 0.01% (0.1 mg/gram) 0.01 % vaginal 2XWK 02/05/19 04/29/23 vaginal cream lamotrigine 200 mg tablet 200 mg PO HS 02/05/19 04/29/23 primidone 50 mg tablet 100 mg PO BID 02/05/19 04/29/23 Lactobacillus 1 cap PO HS 02/07/19 04/29/23 acidophilus-Bifidobac.animalis 2.5 billion cell capsule (Daily Probiotic) polyethylene glycol 3350 17 17 gm PO UD PRN Constipation 02/07/19 04/29/23 gram/dose oral powder (Miralax) primidone 50 mg tablet 150 mg PO HS 03/19/19 04/29/23 raloxifene 60 mg tablet 60 mg PO HS 03/19/19 04/29/23 clonazepam 1 mg tablet 1 mg PO TID 05/19/19 04/29/23 calcium 600 mg (as 2 tab PO HS 10/10/19 04/29/23 carbonate)-vitamin D3 5 mcg (200 unit) tablet (Calcium 600 + D(3)) food supplemt, lactose-reduced 1 ea PO BID 01/09/20 04/29/23 (Ensure oral liquid) triamcinolone acetonide 0.1 % 1 applic topical BID PRN Rash 01/17/20 04/29/23 topical cream omeprazole 20 mg tablet,delayed 20 mg PO QAM 02/27/20 04/29/23 release acetaminophen 500 mg tablet 1,000 mg PO Q6H PRN Pain 12/31/21 04/29/23 levothyroxine 50 mcg tablet 50 mcg PO QAM 12/31/21 04/29/23 dicyclomine 10 mg capsule 10 mg PO BID 11/03/22 04/29/23 famotidine 20 mg tablet 20 mg PO BID 11/03/22 04/29/23 linaclotide 145 mcg capsule 145 mcg PO QAM 11/03/22 04/29/23 (Linzess) rosuvastatin 20 mg tablet 20 mg PO QAM 11/03/22 04/29/23 Previous Rx's Medication Instructions Recorded ibuprofen 600 mg tablet 600 mg PO Q6H #20 tabs 04/29/23 Results & Data (ED) Vital Signs Vital Signs - 24 hr 02/26/24 03:30 02/26/24 03:38 02/26/24 03:38 Temperature 36.9 C Temperature Source Oral Pulse Rate 74 74 Respiratory Rate 16 16 Respiratory Effort / Characteristics Non-Labored Respiratory Depth Normal Respiratory Pattern Regular Blood Pressure 116/64 Blood Pressure Mean 81 Pulse Oximetry 99 99 99 Oxygen Delivery Method Room Air Room Air Room Air Sepsis Recent Fever Within 48 Hours No Sepsis New/Unexplained Change in Mental Status N/A Sepsis Action Taken by Nursing No Action Required 02/26/24 03:43 02/26/24 04:00 02/26/24 04:30 Temperature Temperature Source Pulse Rate 69 72 65 Respiratory Rate 15 14 Respiratory Effort / Characteristics Respiratory Depth Respiratory Pattern Blood Pressure 103/72 95/70 L Blood Pressure Mean 78 76 Pulse Oximetry 98 96 Oxygen Delivery Method Room Air Room Air Sepsis Recent Fever Within 48 Hours Sepsis New/Unexplained Change in Mental Status Sepsis Action Taken by Nursing 02/26/24 05:30 Temperature Temperature Source Pulse Rate 65 Respiratory Rate 18 Respiratory Effort / Characteristics Respiratory Depth Respiratory Pattern Blood Pressure 104/65 Blood Pressure Mean 79 Pulse Oximetry 100 Oxygen Delivery Method Room Air Sepsis Recent Fever Within 48 Hours Sepsis New/Unexplained Change in Mental Status Sepsis Action Taken by Nursing Laboratory Data 02/26/24 03:35 02/26/24 03:35 Lab Results 02/26/24 Range/Units 03:35 WBC 5.71 (4.8-10.8) K/ul RBC 3.82 L (4.20-5.40) M/uL Hgb 11.8 L (12.0-16.0) g/dl Hct 35.7 L (37.0-47.0) % MCV 93.5 (80.0-100.0) fL MCH 30.9 (25.0-34.0) pg MCHC 33.1 (32.0-36.0) g/dL RDW Std Deviation 40.2 (36.4-46.3) fL RDW Coeff of Paul 11.8 (11.5-14.5) % Plt Count 423 H (130-400) K/uL MPV 9.4 (9.4-12.4) fL Immature Gran % (Auto) 0.2 % Neut % (Auto) 54.4 % Lymph % (Auto) 33.8 % Grundy % (Auto) 7.4 % Eos % (Auto) 3.7 % Baso % (Auto) 0.5 % Neut # (Auto) 3.11 (1.40-6.50) K/uL Lymph # (Auto) 1.93 (1.20-3.40) K/uL Grundy # (Auto) 0.42 (0.11-0.59) K/uL Eos # (Auto) 0.21 (0.00-0.50) K/uL Baso # (Auto) 0.03 (0.00-0.20) K/uL Immature Gran # (Auto) 0.01 (0.01-0.20) K/uL Sodium 135 L (136-145) mmol/L Potassium 3.8 (3.5-5.1) mmol/L Chloride 100 (98-107) mmol/L Carbon Dioxide 28 (21-32) mmol/L Anion Gap 7 (3-11) BUN 9 (6-23) mg/dl Creatinine 0.54 L (0.6-1.2) mg/dl Est Cr Clr Drug Dosing Not Reportable eGFR 96.55 BUN/Creatinine Ratio 16.7 (10-20) Glucose 93 (70-99(Fasting)) mg/dl Calcium 8.8 (8.6-10.3) mg/dl Magnesium 2.1 (1.7-2.4) mg/dl Total Bilirubin 0.3 (0.2-1.0) mg/dl AST 23 (13-39) U/L ALT 4 L (7-52) U/L Alkaline Phosphatase 71 (34-104) U/L Troponin I High Sens 4.1 (0-14) pg/ml Total Protein 6.6 (6.0-8.3) gm/dl Albumin 3.9 (3.4-5.0) gm/dl Globulin 2.7 (2.5-4.0) gm/dl Albumin/Globulin Ratio 1.4 (0.9-2) Lipase 52 (11-82) U/L Administered Medications Discontinued Medications Potassium Chloride (Potassium Chloride Crtab 20 Meq Tabcr) 20 meq PO NOW STA Stop: 02/26/24 04:36 Last Admin: 02/26/24 05:55 Dose: Not Given Documented By: HIMANSHU Discharge Plan Visit Data Chief Complaint: Chest Pain Stated Complaint: Substernal Chest Pain ED Provider: Jovan Camacho Discharge Problem: Chest pain, Paroxysmal ventricular fibrillation Forms Stand Alone Forms: My [facility] Prescriptions Prescriptions: No Action coenzyme Q10 100 mg capsule 200 mg PO HS estradiol 0.01 % (0.1 mg/gram) cream 0.01 % PV 2XWK lamotrigine 200 mg tablet 200 mg PO HS primidone 50 mg tablet 100 mg PO BID Rx Instructions: Take 100mg by mouth in the morning and at lunchtime Daily Probiotic 2.5 billion cell capsule 1 cap PO HS polyethylene glycol 3350 [Miralax] 17 gram/dose powder 17 gm PO UD PRN (Reason: Constipation) raloxifene 60 mg Tablet 60 mg PO HS primidone 50 mg Tablet 150 mg PO HS calcium carbonate-vitamin D3 [Calcium 600 + D(3)] 600 mg(1,500mg) -200 unit Tablet 2 tab PO HS triamcinolone acetonide 0.1 % cream 1 applic TOPICAL BID PRN (Reason: Rash) omeprazole 20 mg Tablet,Delayed Release (Dr/Ec) 20 mg PO QAM clonazepam 1 mg tablet 1 mg PO TID Ensure Liquid 1 ea PO BID dicyclomine 10 mg capsule 10 mg PO BID rosuvastatin 20 mg tablet 20 mg PO QAM Linzess 145 mcg capsule 145 mcg PO QAM famotidine 20 mg tablet 20 mg PO BID acetaminophen 500 mg Tablet 1,000 mg PO Q6H PRN (Reason: Pain) levothyroxine 50 mcg Tablet 50 mcg PO QAM ibuprofen 600 mg Tablet 600 mg PO Q6H Qty: 20 0RF Referrals Referrals: López Edward MD [Primary Care Provider] -
[2024-02-26] MEDS: OPTIRAY 320 125ml IV ONE (06:34)
[2024-02-26 06:45] LABS: Partial Thromboplastin Time 26 Seconds (21-31)
--- NOTE | 2024-02-26 06:48 | CT Scan Report ---
CT ANGIOGRAPHY OF THE CHEST DISSECTION PROTOCOL CLINICAL HISTORY: chest pain, back pain, hx thoracic aorta ectasia COMPARISON STUDY: Chest radiograph performed earlier today. Chest CT September 06, 2018. TECHNIQUE: Before and following the IV administration of 119 mL of Optiray, helical axial images of t he chest were obtained. Maximal intensity projections and sagittal and coronal reformats were viewed on an independent 3D workstation. IV contrast was administered without complication. Automated exp osure control was utilized for the study. A dose lowering technique was utilized adhering to the [facility] [place]. FINDINGS: Caliber of the thoracic aorta is normal. There is no thoracic aortic dissection or intramu ral hematoma. No pulmonary emboli are identified. There is mild cardiomegaly. No pericardial effusion is present. The central airways are patent. No pneumothorax or pleural effusion. No consolidation is identified. There is moderate upper lobe predominant emphysema. There are no suspicious pulmonary no dules. A 3 mm right apical pulmonary nodule on image 34 of [address] of June 18. This is benign. There is an old L1 compression fracture. No acute thoracic spine fractures are p resent. Abdomen and pelvis CT will be reported separately. IMPRESSION: 1. No thoracic aortic dissection. 2. No acute intrathoracic findings. 3. Emphysema. ACT 112: Negative or not required by law. Electronically signed by: Alvin García M.D. 02/26/2024 6:46 AM
--- NOTE | 2024-02-26 06:58 | CT Scan Report ---
CT ANGIOGRAPHY OF THE ABDOMEN AND PELVIS CLINICAL HISTORY: Abdominal pain. COMPARISON STUDY: CT of the abdomen and pelvis and right upper ultrasound November 03, 2022. TECHNIQUE: Helical axial images of the abdomen and pelvis were obtained during arterial phase followi ng intravenous injection of 119 cc of Optiray 320 IV. Sagittal and coronal reconstructions were viewe d as well as maximal intensity projections on an independent 3-D workstation. Automated exposure cont rol was utilized for the study. A dose lowering technique was utilized adhering to the principles of ALARA. FINDINGS: The caliber of the abdominal aorta is normal. There is no abdominal aortic dissection. Ther e is moderate atherosclerotic plaque within the abdominal aorta. The branch vessels are patent no pne umatosis, free air or portal venous gas is present. Mild dilatation of the common bile duct is likely related to previous cholecystectomy. Hypodense hepatic lesions are unchanged and favor cysts. Arteri al phase images of the spleen, adrenal glands, kidneys and pancreas are unremarkable. There is no hyd ronephrosis. The bladder is distended. Caliber and wall thickness of small and large bowel are normal . The appendix is not visualized. There is no lymphadenopathy. There is no ascites. Old L1 and L3 com pression fractures are present. There are no acute lumbar spine fractures. There are healing nondispl aced fractures of the right inferior and superior pelvic rami as well as the medial right pubic bone. Fracture involves the anterior wall of the right acetabulum. No proximal femoral fracture is present . IMPRESSION: 1. Normal caliber abdominal aorta. No abdominal aortic dissection. Moderate atherosclerotic plaque. P atent vessels. 2. No acute process within the abdomen or pelvis on arterial phase exam. 3. Distended bladder. 4. Nondisplaced right inferior and superior pubic rami fractures with involvement of the anterior wal l of the right acetabulum. Given sclerosis, the fractures are likely subacute. ACT 112: Negative or not required by law. Electronically signed by: Alvin García M.D. 02/26/2024 6:55 AM
--- NOTE | 2024-02-26 07:01 | History & Physical Report ---
Date of Service February 26, 2024 Assessment & Plan (1) Chest pain: Plan: Rule out ACS History of coronary artery calcification as per records History of CVA, PVD as per records Abdominal pain, rule out UTI given distended bladder on CT imaging chronic diastolic heart failure, patient euvolemic mild MR from 2020 TTE chronic respiratory failure secondary to COPD on home O2, hx traumatic subdural hematoma status post surgery (2019) chronic hyponatremia, likely underlying SIADH chronic anemia, hemoglobin at baseline hypothyroidism, euthyroid as of recent outpatient TSH movement DSO on Mysoline orthostatic hypotension /hx adrenal insufficiency as per records schizoaffective disorder, mood disorder, delusional disorder, at baseline right breast mass, patient follows with [facility] [place] Subacute pelvic fractures, fall history at home from 2 weeks ago as per outpatient records. past tobacco abuse OBS PCU TTE, Cardiology consult re: chest pain Check UA PT OT eval DVT prophylaxis. SCDs hx subdural hematoma Full code Text document was generated using [employer] voice recognition software. It may contain grammatical or spelling errors. Kindly contact undersigned for clarification of any documentation item in question. History of Present Illness Chief Complaint: Chest pain Primary Care Provider: López Edward MD History obtained from patient and records. Medical history significant for Medical history significant for chronic diastolic heart failure (EF 60 to 64%, TTE 2020), mild MR, coronary artery calcification as per records, chronic respiratory failure secondary to COPD on home O2, CVA, hx PVD, hx subdural hematoma status post surgery (2019), chronic hyponatremia, chronic anemia (baseline hemoglobin 10), hypothyroidism, movement DSO on Mysoline, spasmodic torticollis, orthostatic hypotension /hx adrenal insufficiency as per records, esophageal dysmotility as per records for dysfunction, schizoaffective disorder, mood disorder, delusional disorder, right breast mass, past tobacco abuse. Last confinement October 2022 for RUQ pain possible biliary colic. Patient roused from sleep around 2 AM with sharp midsternal chest pain going to her jaw and back and belly. No cough, no SOB symptoms. May have had something similar in the past. EMS called to patient's home. Patient declined aspirin recommendation due to history of head bleed as per EMS account. Patient brought to the ER for evaluation. Transient VF on application of bus driver/monitor as per staff. Patient comfortable during event as per RN. Possible artifact due to patient tremors as per RN account. Patient currently comfortable. MED hx as above : SURGERIES: appendectomy, tubal ligation, tonsillectomy and adenoidectomy, vascular procedures, cataract surgeries, eyelid surgery, fibroid removal, dental surgery, cholecystectomy FAMILY HISTORY: Parkinson DSE, stomach cancer, heart disease PERSONAL AND SOCIAL HISTORY: Past tobacco abuse. Occasional EtOH intake. 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 Allergies Allergy/AdvReac Type Severity Reaction Status Date / Time topiramate Allergy Severe Breathing/eye Verified 04/29/23 09:32 problems adhesive Allergy Intermediate Rash, Verified 04/29/23 09:32 blisters beclomethasone [From Qvar] Allergy Intermediate Lip Verified 04/29/23 09:32 swelling doxycycline Allergy Intermediate Rash Verified 04/29/23 09:32 gabapentin Allergy Intermediate Rash Verified 04/29/23 09:32 nickel Allergy Intermediate Rash Verified 04/29/23 09:32 albuterol AdvReac Unknown Lightheaded, Verified 04/29/23 09:32 difficulty breathing ephedrine AdvReac Unknown Reacts Verified 04/29/23 09:32 with another med that she is no longer taking epinephrine AdvReac Unknown reacts to Verified 04/29/23 09:32 a medication that she is no longer taking levalbuterol AdvReac Unknown Made Verified 04/29/23 09:32 breathing worse per pt procaine [From Novocain] AdvReac Unknown Reacts to Verified 04/29/23 09:32 nardil med pt was previously but no longer taking Home Medications Medication Instructions Recorded Confirmed Type coenzyme Q10 100 mg capsule 200 mg PO HS 02/05/19 04/29/23 History estradiol 0.01% (0.1 mg/gram) 0.01 % vaginal 2XWK 02/05/19 04/29/23 History vaginal cream lamotrigine 200 mg tablet 200 mg PO HS 02/05/19 04/29/23 History primidone 50 mg tablet 100 mg PO BID 02/05/19 04/29/23 History Lactobacillus 1 cap PO HS 02/07/19 04/29/23 History acidophilus-Bifidobac.animalis 2.5 billion cell capsule (Daily Probiotic) polyethylene glycol 3350 17 17 gm PO UD PRN Constipation 02/07/19 04/29/23 History gram/dose oral powder (Miralax) primidone 50 mg tablet 150 mg PO HS 03/19/19 04/29/23 History raloxifene 60 mg tablet 60 mg PO HS 03/19/19 04/29/23 History clonazepam 1 mg tablet 1 mg PO TID 05/19/19 04/29/23 History calcium 600 mg (as 2 tab PO HS 10/10/19 04/29/23 History carbonate)-vitamin D3 5 mcg (200 unit) tablet (Calcium 600 + D(3)) food supplemt, lactose-reduced 1 ea PO BID 01/09/20 04/29/23 History (Ensure oral liquid) triamcinolone acetonide 0.1 % 1 applic topical BID PRN Rash 01/17/20 04/29/23 History topical cream omeprazole 20 mg tablet,delayed 20 mg PO QAM 02/27/20 04/29/23 History release acetaminophen 500 mg tablet 1,000 mg PO Q6H PRN Pain 12/31/21 04/29/23 History levothyroxine 50 mcg tablet 50 mcg PO QAM 12/31/21 04/29/23 History dicyclomine 10 mg capsule 10 mg PO BID 11/03/22 04/29/23 History famotidine 20 mg tablet 20 mg PO BID 11/03/22 04/29/23 History linaclotide 145 mcg capsule 145 mcg PO QAM 11/03/22 04/29/23 History (Linzess) rosuvastatin 20 mg tablet 20 mg PO QAM 11/03/22 04/29/23 History ibuprofen 600 mg tablet 600 mg PO Q6H #20 tabs 04/29/23 Rx Past Med/Surg History Problem List Paroxysmal ventricular fibrillation (Acute) Chest pain (Acute) Spasmodic torticollis Per records, pt denies pt states FROM neck Abnormal finding on CT scan Schizophrenia schizoaffective disorder per PCP note 04/19/23 Movement disorder Hypothyroid (Chronic) Biliary sludge (Acute) Bipolar 1 disorder (Chronic) Recurrent falls last one 07/2021; bump on head-"leakage noted from previous hematoma" COPD (chronic obstructive pulmonary disease) (Chronic) inhaler daily--chronic cough/wheeze daily per pt Osteoporosis (Chronic) Tremor (Chronic) Dystonia (Chronic) PTSD (post-traumatic stress disorder) (Chronic) hx Orthostatic hypotension (Chronic) Major depressive disorder (Chronic 11/01/11) History of left heart catheterization (LHC) (Chronic) 2012 @ [facility]--no stents History of appendectomy (Chronic) History of dilation and curettage (Chronic) mult History of laparotomy (Chronic) x2---uterine fibroids H/O esophagogastroduodenoscopy (Chronic) Medical History Spasmodic torticollis Per records, pt denies pt states FROM neck Transaminitis Osteoporosis Orthostatic hypotension Neuropathic tremor essential tremor; follows with neurology [place] Hypothyroidism GERD (gastroesophageal reflux disease) with esophageal dysmotility Chronic obstructive pulmonary disease 2L O2 HS Seborrheic keratosis Nocturnal hypoxia COPD with nocturnal hypoxia; uses 2L O2 HS Mucocele of lip Limb pain Generalized osteoarthritis of multiple sites Depression Anxiety Actinic keratitis Constipation Liver mass PCP monitoring Diastolic heart failure follows with Dr. Corona Schizophrenia schizoaffective disorder per PCP note 04/19/23 Balance problem Poor memory History of subdural hematoma 02/2019 fall; she is s/p coil embolization of middle meningeal artery Pancreatic mass pcp monitoring; per pt "told she no longer has it" Adrenal insufficiency Lung nodule monitoring Spinal stenosis Degenerative disc disease Chronic back pain Kidney stones hx-passed on own Anemia Hearing deficit Stroke 1983, numbness of left side of face Ectopic atrial tachycardia follows Dr. Corona Thoracic aortic ectasia follows Dr. Corona Lumbar compression fracture PTSD (post-traumatic stress disorder) hx Dystonia Bipolar 1 disorder Surgical History Hx laparoscopic cholecystectomy 11/20/22 [facility]: [place]: MAC#3, ETT#7, atraumatic DL x 1 Hx of tubal ligation History of transesophageal echocardiography (SHAYE) S/P subdural hematoma evacuation [facility] > November 2019 coil embolization of middle meningeal artery History of colonoscopy with polypectomy History of tooth extraction all upper teeth/most of lower History of tonsillectomy and adenoidectomy History of bilateral cataract extraction per pt had it done twice on both eyes Status post glaucoma surgery unsure which eye H/O esophagogastroduodenoscopy History of laparotomy x2---uterine fibroids History of dilation and curettage mult History of appendectomy History of left heart catheterization (LHC) 2013 @ [facility]--no stents Family History Brother Family history of diabetes mellitus Family hx colonic polyps Son Family history of diabetes mellitus Aunt Family history of diabetes mellitus Uncle Family history of diabetes mellitus Mother Family hx of colon cancer Cancer Hypertension Sister Family hx of colon cancer Colorectal cancer Other No family history of adverse response to anesthesia Social History Smoking Status: Former smoker Tobacco Type: Cigarettes Age Started Using Tobacco: 37; Age Quit Using Tobacco: 62; packs per day: 1.5; Second Hand Exposure: No; Do You Dip or Chew Tobacco: No; Hx Alcohol Use: Yes Alcohol type: wine and hard liquor Alcohol Intake Frequency: Monthly or Less Hx Substance Use: No Preferred Language: Turkmen Communication Ability: Effective Member [employer] Required: No Beliefs That Will Affect Care: None marital status: Current Living Situation: Alone current occupational status: retired How many Children do You have: 3 Feels Safe at Home: Yes Assistive Devices: Cane, Denture - Upper, Denture - Lower, Glasses, Oxygen - at Night and Walker Review of Systems Review of Systems: As per HPI, all other systems reviewed and negative Physical Exam Physical Exam: GENERAL: Slightly uncomfortable, slightly anxious, no respiratory distress, chronic head tremors SKIN: Pallor, warm HEENT: Pale palpebral conjunctivae, no ptosis, dry buccal mucosa NECK : Supple, no tenderness CHEST : Decreased breath sounds, no tenderness HEART : RRR, no obvious murmurs ABDOMEN: Some distention, minimal hypogastric tenderness EXTREMITIES : Minimal LE swelling, no LE tenderness, no other conspicuous deformities noted NEUROLOGIC : Coherent, no facial asymmetry, chronic head tremors, gait and stance not assessed Results & Data Results & Data Vital Signs (Past 12 Hours) Vital Signs Temp Pulse Resp BP Pulse Ox O2 Del Method 02/26/24 05:30 65 18 104/65 100 Room Air 02/26/24 04:30 65 14 95/70 L 96 Room Air 02/26/24 04:00 72 15 103/72 98 Room Air 02/26/24 03:43 69 02/26/24 03:38 74 16 99 Room Air 02/26/24 03:38 99 Room Air 02/26/24 03:30 36.9 C 74 16 116/64 99 Room Air Laboratory Results Laboratory Results WBC 5.71 K/ul (4.8-10.8) 02/26/24 03:35 RBC 3.82 M/uL (4.20-5.40) L 02/26/24 03:35 Hgb 11.8 g/dl (12.0-16.0) L 02/26/24 03:35 Hct 35.7 % (37.0-47.0) L 02/26/24 03:35 MCV 93.5 fL (80.0-100.0) 02/26/24 03:35 MCH 30.9 pg (25.0-34.0) 02/26/24 03:35 MCHC 33.1 g/dL (32.0-36.0) 02/26/24 03:35 RDW Std Deviation 40.2 fL (36.4-46.3) 02/26/24 03:35 RDW Coeff of Paul 11.8 % (11.5-14.5) 02/26/24 03:35 Plt Count 423 K/uL (130-400) H 02/26/24 03:35 MPV 9.4 fL (9.4-12.4) 02/26/24 03:35 Immature Gran % (Auto) 0.2 % 02/26/24 03:35 Neut % (Auto) 54.4 % 02/26/24 03:35 Lymph % (Auto) 33.8 % 02/26/24 03:35 Harper % (Auto) 7.4 % 02/26/24 03:35 Eos % (Auto) 3.7 % 02/26/24 03:35 Baso % (Auto) 0.5 % 02/26/24 03:35 Neut # (Auto) 3.11 K/uL (1.40-6.50) 02/26/24 03:35 Lymph # (Auto) 1.93 K/uL (1.20-3.40) 02/26/24 03:35 Harper # (Auto) 0.42 K/uL (0.11-0.59) 02/26/24 03:35 Eos # (Auto) 0.21 K/uL (0.00-0.50) 02/26/24 03:35 Baso # (Auto) 0.03 K/uL (0.00-0.20) 02/26/24 03:35 Immature Gran # (Auto) 0.01 K/uL (0.01-0.20) 02/26/24 03:35 APTT 26 Seconds (21-31) 02/26/24 05:49 PTT Ratio 1.0 02/26/24 05:49 Sodium 135 mmol/L (136-145) L 02/26/24 03:35 Potassium 3.8 mmol/L (3.5-5.1) 02/26/24 03:35 Chloride 100 mmol/L (98-107) 02/26/24 03:35 Carbon Dioxide 28 mmol/L (21-32) 02/26/24 03:35 Anion Gap 7 (3-11) 02/26/24 03:35 BUN 9 mg/dl (6-23) 02/26/24 03:35 Creatinine 0.54 mg/dl (0.6-1.2) L 02/26/24 03:35 Est Cr Clr Drug Dosing Not Reportable 02/26/24 03:35 eGFR 96.55 02/26/24 03:35 BUN/Creatinine Ratio 16.7 (10-20) 02/26/24 03:35 Glucose 93 mg/dl (70-99(Fasting)) 02/26/24 03:35 Calcium 8.8 mg/dl (8.6-10.3) 02/26/24 03:35 Magnesium 2.1 mg/dl (1.7-2.4) 02/26/24 03:35 Total Bilirubin 0.3 mg/dl (0.2-1.0) 02/26/24 03:35 AST 23 U/L (13-39) 02/26/24 03:35 ALT 4 U/L (7-52) L 02/26/24 03:35 Alkaline Phosphatase 71 U/L (34-104) 02/26/24 03:35 Troponin I High Sens 3.7 pg/ml (0-14) 02/26/24 05:49 Total Protein 6.6 gm/dl (6.0-8.3) 02/26/24 03:35 Albumin 3.9 gm/dl (3.4-5.0) 02/26/24 03:35 Globulin 2.7 gm/dl (2.5-4.0) 02/26/24 03:35 Albumin/Globulin Ratio 1.4 (0.9-2) 02/26/24 03:35 Lipase 52 U/L (11-82) 02/26/24 03:35 Impressions Abdomen/Pelvis CTA 02/26/24 05:24 CT ANGIOGRAPHY OF THE ABDOMEN AND PELVIS CLINICAL HISTORY: Abdominal pain. COMPARISON STUDY: CT of the abdomen and pelvis and right upper ultrasound November 03, 2022. TECHNIQUE: Helical axial images of the abdomen and pelvis were obtained during arterial phase following intravenous injection of 119 cc of Optiray 320 IV. Sagittal and coronal reconstructions were viewed as well as maximal intensity projections on an independent 3-D workstation. Automated exposure control was utilized for the study. A dose lowering technique was utilized adhering to the principles of ALARA. FINDINGS: The caliber of the abdominal aorta is normal. There is no abdominal aortic dissection. There is moderate atherosclerotic plaque within the abdominal aorta. The branch vessels are patent no pneumatosis, free air or portal venous gas is present. Mild dilatation of the common bile duct is likely related to previous cholecystectomy. Hypodense hepatic lesions are unchanged and favor cysts. Arterial phase images of the spleen, adrenal glands, kidneys and pancreas are unremarkable. There is no hydronephrosis. The bladder is distended. Caliber and wall thickness of small and large bowel are normal. The appendix is not visualized. There is no lymphadenopathy. There is no ascites. Old L1 and L3 compression fractures are present. There are no acute lumbar spine fractures. There are healing nondisplaced fractures of the right inferior and superior pelvic rami as well as the medial right pubic bone. Fracture involves the anterior wall of the right acetabulum. No proximal femoral fracture is present. IMPRESSION: 1. Normal caliber abdominal aorta. No abdominal aortic dissection. Moderate atherosclerotic plaque. Patent vessels. 2. No acute process within the abdomen or pelvis on arterial phase exam. 3. Distended bladder. 4. Nondisplaced right inferior and superior pubic rami fractures with involvement of the anterior wall of the right acetabulum. Given sclerosis, the fractures are likely subacute. ACT 112: Negative or not required by law. Electronically signed by: Alvin García M.D. 02/26/2024 6:55 AM Chest CTA 02/26/24 05:24 CT ANGIOGRAPHY OF THE CHEST DISSECTION PROTOCOL CLINICAL HISTORY: chest pain, back pain, hx thoracic aorta ectasia COMPARISON STUDY: Chest radiograph performed earlier today. Chest CT September 06, 2018. TECHNIQUE: Before and following the IV administration of 119 mL of Optiray, helical axial images of the chest were obtained. Maximal intensity projections and sagittal and coronal reformats were viewed on an independent 3D workstation. IV contrast was administered without complication. Automated exposure control was utilized for the study. A dose lowering technique was utilized adhering to the principles of ALARA. FINDINGS: Caliber of the thoracic aorta is normal. There is no thoracic aortic dissection or intramural hematoma. No pulmonary emboli are identified. There is mild cardiomegaly. No pericardial effusion is present. The central airways are patent. No pneumothorax or pleural effusion. No consolidation is identified. There is moderate upper lobe predominant emphysema. There are no suspicious pulmonary nodules. A 3 mm right apical pulmonary nodule on image 34 of [address] of June 18, 2014. This is benign. There is an old L1 compression fracture. No acute thoracic spine fractures are present. Abdomen and pelvis CT will be reported separately. IMPRESSION: 1. No thoracic aortic dissection. 2. No acute intrathoracic findings. 3. Emphysema. ACT 112: Negative or not required by law. Electronically signed by: Alvin García M.D. 02/26/2024 6:46 AM Diagnostic Findings EKG as per my interpretation :Rate 70, NSR, LAD, LAFB, incomplete RBBB, T wave abnormalities septal leads
[2024-02-26] MEDS ORDERED: POLYETHYLENE (MIRALAX) 17 GM PACK PO PRN (07:03)
--- NOTE | 2024-02-26 07:04 | XRay Report ---
XR chest 1V portable CLINICAL HISTORY: Chest pain, nonspecific COMPARISON STUDY: Chest radiograph 11/03/2022. Chest CT September 06, 2018. FINDINGS: Lung volumes are normal. Lungs are clear. There is no pneumothorax or pleural effusion. Car diac size is normal. Mediastinal contours are normal. There is no evidence for pulmonary edema. IMPRESSION: No acute cardiopulmonary findings. ACT 112: Negative or not required by law. Electronically signed by: Alvin García M.D. 02/26/2024 7:02 AM
[2024-02-26] MEDS ORDERED: MoRPHine SULFATE 2 MG/ML CARP IV PRN (07:05)
[2024-02-26] MEDS: PRIMIDONE 50 MG TAB PO SCH ×2 (11:39→20:56)
[2024-02-26] MEDS: LEVOTHYROXINE SODIUM 50 MCG TABLET PO SCH (11:40)
[2024-02-26] MEDS: LINACLOTIDE 145 MCG CAPSULE PO SCH (11:40)
[2024-02-26] MEDS: PANTOprazole 40 MG TAB PO SCH (11:40)
[2024-02-26] MEDS: ROSUVASTATIN CALCIUM 20 MG TAB PO SCH (11:41)
[2024-02-26] MEDS: FAMOTIDINE 20 MG TAB PO SCH (11:41)
[2024-02-26] MEDS: clonazePAM 1 MG TAB PO SCH (11:47)
--- NOTE | 2024-02-26 11:48 | Cardiology Consultation ---
<Statement entered by Sirisha Doe, DO - 02/26/24 16:29> I have reviewed the advanced practitioner's documentation and agree with the plan of care. I accept the responsibility for the associated risk. Pt seen in cardiology consultation due to atypical chest pain that woke her up from sleep. Pt has a PMH for ICH and is not allowed ASA. She had a mechanical fall in recently and has a known pelvic fracture. she has not had any recurrent chest pain pt is on crestor BP is ok She ruled out for ACS telemetry and ECG are ok echo is normal No further in patient cardiac testing or recommendations at this juncture please re-consult as necessary I discussed the case and my recommendations with the hospitalist over tiger text and he agreed with my plan Date of Consultation February 26, 2024 Assessment & Plan (1) Chest pain: (2) Coronary artery calcification: Plan Patient admitted with atypical sharp stabbing chest pain rating to her back. Negative cardiac workup thus far, including non ischemic EKGs x2 and HS troponin negative x2. Echo without wall motion abnormalities or significant valvular disease. Her chest pain has resolved. She does have cardiac risk factors including Dyslipidemia and known coronary artery calcifications noted on prior CT scans. Would recommend ongoing medical management given negative work up with normal enzymes, EKG and echo. She declines use of ASA 81 mg daily for her history of calcifications and presumed CAD. Therefore, she would not be a candidate for further coronary intervention as she would need to be on dual antiplatelet therapy. Continue statin. Further recommendations pending discussion and evaluation with Dr. Doe I spent a total of 60 minutes on the date of service in preparation, delivery, and documentation of the care provided to this patient, excluding any time spent in the performance of separately billed services. Kelli Travis PA-C Department of Cardiology, [facility] This chart was completed in part utilizing Speech Voice Recognition Software. Grammatical errors, random word insertions, pronoun errors, and incomplete sentences are an occasional consequence of this system due to software limitations, ambient noise, and hardware issues. Any formal questions or concerns about the content, text, or information contained within the body of this dictation should be directly addressed to the provider for clarification. History of Present Illness Reason for Consultation: chest pain Requesting Physician: Jv hospitalist Attending Physician: Dr. Doe History of Present Illness Patient is a 73-year-old female who was admitted to [facility] earlier this morning with complaints of chest pain.Chest pain aroused her from sleep around 2 AM with sharp midsternal chest pain radiating to her back and abdomen. She summoned 911 . Patient declined aspirin due to history of subdural hematoma. On arrival to emergency department, EKG demonstrated normal sinus rhythm Without acute ischemic changes. No change from October 2022 EKG. High-sensitivity troponin negative x 2 since arrival. There was mention that patient had VF while applying campus monitor per admission records. However, this was then felt to be artifact by RN due to patients tremors. Personally reviewed and this was artifact. At time of consult, patient resting in bed comfortably. She denies recurrent chest pain. Symptoms resolved shortly after Arriving at the ER without recurrence. No unusual shortness of breath. She denies recent chest pain with exertion or with daily activities. She once again declines aspirin therapy due to history of subdural hematoma. Apparently she was told to never take aspirin and is fearful of this. History includes: 1. Mild atherosclerotic calcification of the aorta via CT abdomen and pelvis, May 19, 2022. 2. Moderate coronary artery calcification via chest CTA, [facility], September 06, 2018 3. Angiographically normal coronary arteries via July 10, 2014 diagnostic cardiac catheterization at [facility] 4. Dyslipidemia 5. Mild mitral regurgitation 6. Diastolic dysfunction 7. Aortic valve sclerosis without stenosis 8. Ectopic atrial tachycardia 9. History of fall with symptomatic right chronic subdural hematoma status post successful particle and coil embolization of middle meningeal artery Allergies Allergy/AdvReac Type Severity Reaction Status Date / Time topiramate Allergy Severe Breathing/eye Verified 02/26/24 09:04 problems adhesive Allergy Intermediate Rash, Verified 02/26/24 09:04 blisters beclomethasone [From Qvar] Allergy Intermediate Lip Verified 02/26/24 09:04 swelling doxycycline Allergy Intermediate Rash Verified 02/26/24 09:04 gabapentin Allergy Intermediate Rash Verified 02/26/24 09:04 nickel Allergy Intermediate Rash Verified 02/26/24 09:04 albuterol AdvReac Unknown Lightheaded, Verified 02/26/24 09:04 difficulty breathing ephedrine AdvReac Unknown Reacts Verified 02/26/24 09:04 with another med that she is no longer taking epinephrine AdvReac Unknown reacts to Verified 02/26/24 09:04 a medication that she is no longer taking levalbuterol AdvReac Unknown Made Verified 02/26/24 09:04 breathing worse per pt procaine [From Novocain] AdvReac Unknown Reacts to Verified 02/26/24 09:04 nardil med pt was previously but no longer taking Home Medications Medication Instructions Recorded Confirmed Type coenzyme Q10 100 mg capsule 200 mg PO HS 02/05/19 02/26/24 History estradiol 0.01% (0.1 mg/gram) 0.5 appful vaginal 2XWK 02/05/19 02/26/24 History vaginal cream lamotrigine 200 mg tablet 200 mg PO HS 02/05/19 02/26/24 History primidone 50 mg tablet 100 mg PO BID 02/05/19 02/26/24 History Lactobacillus 1 cap PO HS 02/07/19 02/26/24 History acidophilus-Bifidobac.animalis 2.5 billion cell capsule (Daily Probiotic) polyethylene glycol 3350 17 17 gm PO UD PRN Constipation 02/07/19 02/26/24 History gram/dose oral powder (Miralax) primidone 50 mg tablet 150 mg PO HS 03/19/19 02/26/24 History raloxifene 60 mg tablet 60 mg PO HS 03/19/19 02/26/24 History clonazepam 1 mg tablet 1 mg PO TID 05/19/19 02/26/24 History calcium 600 mg (as 2 tab PO HS 10/10/19 02/26/24 History carbonate)-vitamin D3 5 mcg (200 unit) tablet (Calcium 600 + D(3)) food supplemt, lactose-reduced 1 ea PO BID 01/09/20 02/26/24 History (Ensure oral liquid) triamcinolone acetonide 0.1 % 1 applic topical BID PRN Rash 01/17/20 02/26/24 History topical cream omeprazole 20 mg tablet,delayed 20 mg PO QAM 02/27/20 02/26/24 History release acetaminophen 500 mg tablet 1,000 mg PO Q6H PRN Pain 12/31/21 02/26/24 History levothyroxine 50 mcg tablet 50 mcg PO QAM 12/31/21 02/26/24 History dicyclomine 10 mg capsule 10 mg PO BID PRN Abdominal Pain 11/03/22 02/26/24 History famotidine 20 mg tablet 20 mg PO BID 11/03/22 02/26/24 History linaclotide 145 mcg capsule 145 mcg PO QPM 11/03/22 02/26/24 History (Linzess) rosuvastatin 20 mg tablet 20 mg PO QAM 11/03/22 02/26/24 History paliperidone palmitate 78 mg/0.5 78 mg IM MONTHLY 02/26/24 02/26/24 History mL intramuscular syringe (Invega Sustenna) Patient History Medical History Spasmodic torticollis Per records, pt denies pt states FROM neck Transaminitis Osteoporosis Orthostatic hypotension Neuropathic tremor essential tremor; follows with neurology [place] Hypothyroidism GERD (gastroesophageal reflux disease) with esophageal dysmotility Chronic obstructive pulmonary disease 2L O2 HS Seborrheic keratosis Nocturnal hypoxia COPD with nocturnal hypoxia; uses 2L O2 HS Mucocele of lip Limb pain Generalized osteoarthritis of multiple sites Depression Anxiety Actinic keratitis Constipation Liver mass PCP monitoring Diastolic heart failure follows with Dr. Corona Schizophrenia schizoaffective disorder per PCP note 04/19/23 Balance problem Poor memory History of subdural hematoma 02/2019 fall; she is s/p coil embolization of middle meningeal artery Pancreatic mass pcp monitoring; per pt "told she no longer has it" Adrenal insufficiency Lung nodule monitoring Spinal stenosis Degenerative disc disease Chronic back pain Kidney stones hx-passed on own Anemia Hearing deficit Stroke 1983, numbness of left side of face Ectopic atrial tachycardia follows Dr. Corona Thoracic aortic ectasia follows Dr. Corona Lumbar compression fracture PTSD (post-traumatic stress disorder) hx Dystonia Bipolar 1 disorder Surgical History Hx laparoscopic cholecystectomy 11/20/22 [facility]: [place]: MAC#3, ETT#7, atraumatic DL x 1 Hx of tubal ligation History of transesophageal echocardiography (SHAYE) S/P subdural hematoma [place] [facility] [place] 2019 coil embolization of middle meningeal artery History of colonoscopy with polypectomy History of tooth extraction all upper teeth/most of lower History of tonsillectomy and adenoidectomy History of bilateral cataract extraction per pt had it done twice on both eyes Status post glaucoma surgery unsure which eye H/O esophagogastroduodenoscopy History of laparotomy x2---uterine fibroids History of dilation and curettage mult History of appendectomy History of left heart catheterization (LHC) 2013 @ [facility]--no stents Family History Brother Family history of diabetes mellitus Family hx colonic polyps Son Family history of diabetes mellitus Aunt Family history of diabetes mellitus Uncle Family history of diabetes mellitus Mother Family hx of colon cancer Cancer Hypertension Sister Family hx of colon cancer Colorectal cancer Other No family history of adverse response to anesthesia Social History Smoking Status: Former smoker Tobacco Type: Cigarettes Age Started Using Tobacco: 37; Age Quit Using Tobacco: 62; packs per day: 1.5; Second Hand Exposure: No; Do You Dip or Chew Tobacco: No; Hx Alcohol Use: No Hx Substance Use: No Preferred Language: Romanian Communication Ability: Effective Grinding Wheel Dresser Required: No Beliefs That Will Affect Care: None marital status: Current Living Situation: Alone current occupational status: retired How many Children do You have: 3 Other Information That Helps Us Care for You: No Feels Safe at Home: Yes Safety Concerns: Feels Safe At This Time Assistive Devices: None Review of Systems 2 Review of Systems: All systems reviewed & are unremarkable except as noted in HPI & below Physical Exam Constitutional: WD/WN, vitals as above + thin; no acute distress Neck: trachea midline, no thyromegaly Respiratory: normal respiratory effort Auscultation: lungs clear to auscultation bilaterally Cardiovascular: Rate/Rhythm: regular rate and regular rhythm Heart Sounds: normal S1 and normal S2 Vessels: no JVD Extremities: no edema Gastrointestinal (Abdomen): normal bowel sounds, soft, nontender, no hepatosplenomegaly Musculoskeletal: no cyanosis or clubbing, extremities motor strength 5/5 Results & Data Vital Signs (Past 12 Hours) Vital Signs Temp Pulse Pulse Resp BP BP Pulse Ox 02/26/24 10:44 37 C 81 18 103/64 97 02/26/24 10:44 02/26/24 09:30 73 13 112/74 100 02/26/24 09:01 68 02/26/24 09:00 68 18 104/64 100 02/26/24 08:30 62 12 124/73 100 02/26/24 08:25 85 L 02/26/24 07:30 71 18 117/71 95 02/26/24 07:00 65 16 99/62 L 95 02/26/24 05:30 65 18 104/65 100 02/26/24 04:30 65 14 95/70 L 96 02/26/24 04:00 72 15 103/72 98 02/26/24 03:43 69 02/26/24 03:38 74 16 99 02/26/24 03:38 99 02/26/24 03:30 36.9 C 74 16 116/64 99 Pulse Ox O2 Del Method O2 Del Method O2 Flow Rate 02/26/24 10:44 Room Air 02/26/24 10:44 97 Room Air 02/26/24 09:30 Nasal Cannula 2 02/26/24 09:01 02/26/24 09:00 Nasal Cannula 2 02/26/24 08:30 Nasal Cannula 2 02/26/24 08:25 Nasal Cannula 0 02/26/24 07:30 Room Air 02/26/24 07:00 Room Air 02/26/24 05:30 Room Air 02/26/24 04:30 Room Air 02/26/24 04:00 Room Air 02/26/24 03:43 02/26/24 03:38 Room Air 02/26/24 03:38 Room Air 02/26/24 03:30 Room Air Laboratory Results Cardiac Enzymes 02/26/24 02/26/24 Range/Units 03:35 05:49 AST 23 (13-39) U/L Troponin I High Sens 4.1 3.7 (0-14) pg/ml Coagulation 02/26/24 Range/Units 05:49 APTT 26 (21-31) Seconds CBC 02/26/24 Range/Units 03:35 WBC 5.71 (4.8-10.8) K/ul RBC 3.82 L (4.20-5.40) M/uL Hgb 11.8 L (12.0-16.0) g/dl Hct 35.7 L (37.0-47.0) % Plt Count 423 H (130-400) K/uL Neut # (Auto) 3.11 (1.40-6.50) K/uL Lymph # (Auto) 1.93 (1.20-3.40) K/uL Power # (Auto) 0.42 (0.11-0.59) K/uL Eos # (Auto) 0.21 (0.00-0.50) K/uL Baso # (Auto) 0.03 (0.00-0.20) K/uL Comprehensive Metabolic Panel 02/26/24 Range/Units 03:35 Sodium 135 L (136-145) mmol/L Potassium 3.8 (3.5-5.1) mmol/L Chloride 100 (98-107) mmol/L Carbon Dioxide 28 (21-32) mmol/L BUN 9 (6-23) mg/dl Creatinine 0.54 L (0.6-1.2) mg/dl Glucose 93 (70-99(Fasting)) mg/dl Calcium 8.8 (8.6-10.3) mg/dl AST 23 (13-39) U/L ALT 4 L (7-52) U/L Alkaline Phosphatase 71 (34-104) U/L Total Protein 6.6 (6.0-8.3) gm/dl Albumin 3.9 (3.4-5.0) gm/dl Intake and Output 02/25/24 02/26/24 02/26/24 22:59 06:59 14:59 Other: Weight 45.8 kg 45.8 kg Weight Measurement Method Built in [facility] Built in [facility] Patient Weight 02/27/24 06:59 Weight 45.8 kg Diagnostic Findings Telemetry reviewed: Normal sinus rhythm in the 80s.No arrhythmias. EKG reviewed from admission: NSR, LAD No acute ischemic changes Echo pending from today Normal LV systolic function with ejection fraction 55 to 60%. Nondilated cardiac chambers. No significant valvular pathology. Chest X-Ray 02/26/24 03:38 FINDINGS: Lung volumes are normal. Lungs are clear. There is no pneumothorax or pleural effusion. Cardiac size is normal. Mediastinal contours are normal. There is no evidence for pulmonary edema. IMPRESSION: No acute cardiopulmonary findings. Abdomen/Pelvis CTA 02/26/24 05:24 IMPRESSION: 1. Normal caliber abdominal aorta. No abdominal aortic dissection. Moderate atherosclerotic plaque. Patent vessels. 2. No acute process within the abdomen or pelvis on arterial phase exam. 3. Distended bladder. 4. Nondisplaced right inferior and superior pubic rami fractures with involvement of the anterior wall of the right acetabulum. Given sclerosis, the fractures are likely subacute. Chest CTA 02/26/24 05:24 IMPRESSION: 1. No thoracic aortic dissection. 2. No acute intrathoracic findings. 3. Emphysema. Prior outside data reviewed EKG from outpatient reviewed September 2023: NSR LAD Echo report reviewed from July 2020 Interpretation Summary The examination is adequate to evaluate the referral indication. The LV wall thickness is normal. The left ventricular wall motion is normal. The qualitative LV ejection fraction is 60-64% (normal). The left ventricular diastolic function is mildly abnormal (grade I). Mild aortic valve sclerosis is present. Mild mitral regurgitation is present. There is no evidence of pulmonary hypertension. Medications Administered Current Inpatient Medications Clonazepam (Clonazepam 1 Mg Tab) 1 mg PO TID DENA Stop: 03/27/24 08:59 Famotidine (Famotidine 20 Mg Tab) 20 mg PO BID [facility] Stop: 03/27/24 08:59 Last Admin: 02/26/24 11:41 Dose: 20 mg Potassium Chloride/Sodium Chloride (Normal Saline W/20 Meq Kcl) 20 meq in 1,000 mls @ 75 mls/hr IV .[id number] ONE Stop: 02/26/24 17:57 Last Admin: 02/26/24 06:30 Dose: 75 mls/hr Promethazine HCl (Phenergan) 6.25 mg in 50.25 mls @ 201 mls/hr IV Q6H PRN PRN Reason: Nausea And Vomiting Stop: 03/27/24 07:04 Lactobacillus Acidophilus (Advanced Probiotic 625 Mg Capsule) 1,250 mg PO HS [facility] Stop: 03/27/24 20:59 Lamotrigine (Lamotrigine 100 Mg Tab) 200 mg PO HS [facility]; Protocol Stop: 03/27/24 20:59 Levothyroxine Sodium (Levothyroxine Sodium 50 Mcg Tablet) 50 mcg PO DAILYBB DENA Stop: 03/27/24 09:59 Last Admin: 02/26/24 11:40 Dose: 50 mcg Linaclotide (Linaclotide 145 Mcg Capsule) 145 mcg PO QAM DENA Stop: 03/27/24 08:59 Last Admin: 02/26/24 11:40 Dose: 145 mcg Morphine Sulfate (Morphine Sulfate 2 Mg/Ml Carp) 2 mg IV Q3H PRN PRN Reason: Pain Stop: 03/11/24 07:04 Nitroglycerin (Nitroglycerin Sl 0.4 Mg/Tab Tab) 0.4 mg SL Q5M PRN PRN Reason: Chest Pain Stop: 03/27/24 05:25 Oxycodone HCl (Oxycodone Hcl Ir 5 Mg Tab (Immediate Release)) 5 mg PO Q4H PRN PRN Reason: Pain Stop: 03/11/24 05:27 Pantoprazole Sodium (Pantoprazole 40 Mg Tab) 40 mg PO QAM [facility] Stop: 03/27/24 08:59 Last Admin: 02/26/24 11:40 Dose: 40 mg Polyethylene Glycol (Polyethylene (Miralax) 17 Gm Pack) 17 gm PO UD PRN PRN Reason: Constipation Stop: 03/27/24 07:02 Primidone (Primidone 50 Mg Tab) 100 mg PO BID@0800,1300 [facility] Stop: 03/27/24 09:59 Last Admin: 02/26/24 11:39 Dose: 100 mg Primidone (Primidone 50 Mg Tab) 150 mg PO HS [facility] Stop: 03/27/24 20:59 Rosuvastatin Calcium (Rosuvastatin Calcium 20 Mg Tab) 20 mg PO QAM [facility] Stop: 03/27/24 08:59 Last Admin: 02/26/24 11:41 Dose: 20 mg
--- NOTE | 2024-02-26 13:58 | Electrocardiogram Report ---
Test Reason : Blood Pressure : */* mmHG Vent. Rate : 72 BPM Atrial Rate : 72 BPM P-R Int : 156 ms QRS Dur : 82 ms QT Int : 398 ms P-R-T Axes : 47 -78 36 degrees QTcB Int : 435 ms Normal sinus rhythm Left anterior fascicular block Cannot rule out Inferior infarct (cited on or before 17-Jan-2020) Abnormal ECG When compared with ECG of 03-Nov-2022 04:44, No significant change was found Confirmed by Primitivo Ramirez [id number]) on 02/26/2024 1:58:19 PM Referred By: REFERRED SELF Confirmed By: Primitivo Ramirez
--- NOTE | 2024-02-26 14:14 | Hospitalist Progress Note ---
Date of Service February 26, 2024 Assessment & Plan (1) Chest pain: Plan: Chest pain Rule out ACS H/O Coronary artery calcification as per records --Chest CTA:No thoracic aortic dissection. No acute intrathoracic findings. Emphysema. --ECHO: Normal left ventricle systolic function with EF 55 to 60%. Known dilated cardiac chambers. No significant valvular pathology. -- EKG showed no significant change from prior --Troponin negative Patient refuses to use aspirin given history of subdural hematoma in the past Continue statin Appreciate cardiology input Abdominal pain --CT ABD:Normal caliber abdominal aorta. No abdominal aortic dissection. Moderate atherosclerotic plaque. Patent vessels. No acute process within the abdomen or pelvis on arterial phase exam. Distended bladder. Nondisplaced right inferior and superior pubic rami fractures with involvement of the anterior wall of the right acetabulum. Given sclerosis, the fractures are likely subacute. -- Unclear etiology --Abdominal pain resolved --Tolerating diet --Urinalysis pending Right acetabular fracture Admits to have a recent fall . No significant pain currently Fall precautions PT OT as able H/O CVA H/O PVD Patient refuses aspirin Continue statin Update lipid panel Chronic diastolic heart failure No signs of volume overload Continue home medications Monitor volume status while on IV fluids Chronic respiratory failure secondary to COPD on home O2 No signs of exacerbation Saturating well on room air Monitor Chronic hyponatremia Sodium levels at baseline Monitor H/O Traumatic subdural hematoma S/P surgery (2019) Fall precautions Hypothyroidism Continue levothyroxine Movement disorder on [place] Orthostatic hypotension H/O Adrenal insufficiency Blood pressure relatively low Receiving gentle IV fluids Monitor blood pressure closely Other chronic conditions Schizoaffective disorder, mood disorder, delusional disorder, at baseline--continue home medications Right breast mass, patient follows with [facility] breast surgeon Past tobacco abuse DVT Px: SCDs hx subdural hematoma Code Status Full code Admission and Anticipated Discharge Date Admission Date: February 26, 2024 Subjective Patient is seen and examined at bedside Nausea, chest pain, abdominal pain resolved States feeling better today No new complaints today Denies any dyspnea, dizziness Review of Systems Review of Systems: All systems reviewed & are unremarkable except as noted in Subjective Physical Exam Physical Exam: Physical Exam: Vitals signs as noted above General Appearance: Thin, frail, no apparent distress Head: normocephalic, Atraumatic Eyes: normal inspection, EOMI Neck: supple, Trachea midline Respiratory/Chest: Normal breath sounds, CTA, No accessory muscle use Cardiovascular: S1, S2, No murmur Abdomen/GI:Soft, Non tender, Bowel sounds present Extremities/Musculoskeletal:normal inspection, no edema Neurologic/Psych:AAOX3, grossly no focal neurological deficits,+Tremor (essential tremor per pt) Skin: normal color, warm Results & Data Results & Data Vital Signs (Past 12 Hours) Vital Signs Temp Pulse Pulse Resp BP BP Pulse Ox 02/26/24 10:44 37 C 81 18 103/64 97 02/26/24 10:44 02/26/24 09:30 73 13 112/74 100 02/26/24 09:01 68 02/26/24 09:00 68 18 104/64 100 02/26/24 08:30 62 12 124/73 100 02/26/24 08:25 85 L 02/26/24 07:30 71 18 117/71 95 02/26/24 07:00 65 16 99/62 L 95 02/26/24 05:30 65 18 104/65 100 02/26/24 04:30 65 14 95/70 L 96 02/26/24 04:00 72 15 103/72 98 02/26/24 03:43 69 02/26/24 03:38 74 16 99 02/26/24 03:38 99 02/26/24 03:30 36.9 C 74 16 116/64 99 Pulse Ox O2 Del Method O2 Del Method O2 Flow Rate 02/26/24 10:44 Room Air 02/26/24 10:44 97 Room Air 02/26/24 09:30 Nasal Cannula 2 02/26/24 09:01 02/26/24 09:00 Nasal Cannula 2 02/26/24 08:30 Nasal Cannula 2 02/26/24 08:25 Nasal Cannula 0 02/26/24 07:30 Room Air 02/26/24 07:00 Room Air 02/26/24 05:30 Room Air 02/26/24 04:30 Room Air 02/26/24 04:00 Room Air 02/26/24 03:43 02/26/24 03:38 Room Air 02/26/24 03:38 Room Air 02/26/24 03:30 Room Air Laboratory Results Short CBC 02/26/24 Range/Units 03:35 WBC 5.71 (4.8-10.8) K/ul Hgb 11.8 L (12.0-16.0) g/dl Hct 35.7 L (37.0-47.0) % Plt Count 423 H (130-400) K/uL BMP 02/26/24 03:35 Sodium 135 L Potassium 3.8 Chloride 100 Carbon Dioxide 28 BUN 9 Creatinine 0.54 L Glucose 93 Calcium 8.8 Liver Function 02/26/24 Range/Units 03:35 Total Bilirubin 0.3 (0.2-1.0) mg/dl AST 23 (13-39) U/L ALT 4 L (7-52) U/L Alkaline Phosphatase 71 (34-104) U/L Albumin 3.9 (3.4-5.0) gm/dl
[2024-02-26 15:24] LABS: Appearance Urine Clear (Clear); Bilirubin Urine Negative (Negative); Blood Urine Negative (Negative); Color Urine Yellow; Glucose Urine UA Negative (Negative); Ketones Urine Negative (Negative); Leukocyte Esterase Urine Negative (Negative); Nitrite Urine Negative (Negative); Protein Urine Negative (Negative); Specific Gravity Urine 1.024 (1.000-1.030); Urobilinogen Urine Negative (Negative); pH Urine 7.5 (4.5-7.5)
[2024-02-26] MEDS: SODIUM CHLORIDE 0.9% 1,000 ML IV ONE (17:40)
[2024-02-26] MEDS: ADVANCED PROBIOTIC 625 MG CAPSULE PO SCH (20:55)
[2024-02-26] MEDS: lamoTRIgine 100 MG TAB PO SCH (20:56)
[2024-02-26] MEDS: NON-FORMULARY MEDICATION (Food Supplemt, Lactose-Reduced [Ensure] Liquid) PO SCH (21:24)
[2024-02-27 06:13] LABS: Basophils # (auto) 0.03 K/uL (0.00-0.20); Basophils % (auto) 0.6 %; Eosinophils # (auto) 0.19 K/uL (0.00-0.50); Eosinophils % (auto) 3.7 %; Hematocrit (blood only) 34.9 % (37.0-47.0); Hemoglobin 11.5 g/dl (12.0-16.0); Immature Granulocytes # (auto) 0.02 K/uL (0.01-0.20); Immature Granulocytes % (auto) 0.4 %; Lymphocytes # (auto) 1.83 K/uL (1.20-3.40); Lymphocytes % (auto) 35.8 %; Mean Corpuscular Hemoglobin 30.9 pg (25.0-34.0); Mean Corpuscular Volume 93.8 fL (80.0-100.0); Monocytes # (auto) 0.39 K/uL (0.11-0.59); Monocytes % (auto) 7.6 %; Neutrophils # (auto) 2.65 K/uL (1.40-6.50); Neutrophils % (auto) 51.9 %; Platelet Count 349 K/uL (130-400); RDW Coefficient of Variation 11.8 % (11.5-14.5); RDW Standard Deviation 40.4 fL (36.4-46.3); Red Blood Count 3.72 M/uL (4.20-5.40); White Blood Count 5.11 K/ul (4.8-10.8)
[2024-02-27 06:28] LABS: Calcium 8.4 mg/dl (8.6-10.3); Chol HDL Ratio 2.5 (0-5); Creatinine Clr Calc Pharmacy 70.9 ml/min; Potassium 4.1 mmol/L (3.5-5.1)
[2024-02-27] MEDS: PROMETHAZINE 6.25 MG/50.25 ML BAG IV PRN (09:25)
--- NOTE | 2024-02-27 11:12 | Hospitalist Progress Note ---
Date of Service February 27, 2024 Assessment & Plan (1) Chest pain: Plan: Chest pain Ruled out ACS H/O Coronary artery calcification as per records --Chest CTA:No thoracic aortic dissection. No acute intrathoracic findings. Emphysema. --ECHO: Normal left ventricle systolic function with EF 55 to 60%. Known dilated cardiac chambers. No significant valvular pathology. -- EKG showed no significant change from prior --Troponin negative Patient refuses to use aspirin given history of subdural hematoma in the past Continue statin Appreciate cardiology input Chest pain resolved Plan to be discharged home today Abdominal pain --CT ABD:Normal caliber abdominal aorta. No abdominal aortic dissection. Moderate atherosclerotic plaque. Patent vessels. No acute process within the abdomen or pelvis on arterial phase exam. Distended bladder. Nondisplaced right inferior and superior pubic rami fractures with involvement of the anterior wall of the right acetabulum. Given sclerosis, the fractures are likely subacute. -- Unclear etiology --Abdominal pain resolved --Tolerating regular diet diet --Urinalysis within normal limits Right acetabular fracture Admits to have a recent fall . No significant pain currently Fall precautions PT OT eval H/O CVA H/O PVD Patient refuses aspirin Lipid panel within normal limits Continue statin Chronic diastolic heart failure No signs of volume overload Continue home medications Chronic respiratory failure secondary to COPD on home O2 No signs of exacerbation Saturating well on room air Monitor Chronic hyponatremia Sodium levels at baseline Monitor H/O Traumatic subdural hematoma S/P surgery (2019) Fall precautions Hypothyroidism Continue levothyroxine Movement disorder on [place] Orthostatic hypotension H/O Adrenal insufficiency Chronic hypotension Blood pressure relatively low Received gentle IV fluids Denies any dizziness currently Other chronic conditions Schizoaffective disorder, mood disorder, delusional disorder, at baseline-- continue home medications Right breast mass, patient follows with [facility] breast surgeon Past tobacco abuse DVT Px: SCDs hx subdural hematoma Code Status Full code Disposition Home Admission and Anticipated Discharge Date Admission Date: February 26, 2024 Subjective Patient is seen and examined at bedside States feeling well today Reports chronic nausea No new complaints Denies any chest pain, abdominal pain, dyspnea, dizziness Plan to be discharged home today Review of Systems Review of Systems: All systems reviewed & are unremarkable except as noted in Subjective Physical Exam Physical Exam: Physical Exam: Vitals signs as noted above General Appearance: Thin, frail, no apparent distress Head: normocephalic, Atraumatic Eyes: normal inspection, EOMI Neck: supple, Trachea midline Respiratory/Chest: Normal breath sounds, CTA, No accessory muscle use Cardiovascular: S1, S2, No murmur Abdomen/GI:Soft, Non tender, Bowel sounds present Extremities/Musculoskeletal:normal inspection, no edema Neurologic/Psych:AAOX3, grossly no focal neurological deficits,+Tremor (essential tremor per pt) Skin: normal color, warm Results & Data Results & Data Vital Signs (Past 12 Hours) Vital Signs Temp Pulse Pulse Resp BP Pulse Ox O2 Del Method 02/27/24 09:29 Room Air 02/27/24 07:25 69 02/27/24 07:22 36.7 C 68 17 99/66 L 95 Room Air 02/27/24 03:52 36.6 C 71 15 97/58 L 94 Nasal Cannula 02/26/24 23:10 36.6 C 81 16 108/69 94 Room Air O2 Flow Rate 02/27/24 09:29 02/27/24 07:25 02/27/24 07:22 02/27/24 03:52 2 02/26/24 23:10 Laboratory Results Short CBC 02/27/24 Range/Units 05:58 WBC 5.11 (4.8-10.8) K/ul Hgb 11.5 L (12.0-16.0) g/dl Hct 34.9 L (37.0-47.0) % Plt Count 349 (130-400) K/uL BMP 02/27/24 05:58 Sodium 137 Potassium 4.1 Chloride 105 Carbon Dioxide 28 BUN 7 Creatinine 0.50 L Glucose 91 Calcium 8.4 L Urine 02/26/24 Range/Units 13:30 Urine Color Yellow Urine Appearance Clear (Clear) Urine pH 7.5 (4.5-7.5) Ur Specific [place] 1.024 (1.000-1.030) Urine Protein Negative (Negative) Urine Glucose (UA) Negative (Negative)
--- NOTE | 2024-02-27 11:16 | Discharge Summary ---
Date of Service February 27, 2024 Admission HPI Per Admitting Provider History obtained from patient and records. Medical history significant for Medical history significant for chronic diastolic heart failure (EF 60 to 64%, TTE 2020), mild MR, coronary artery calcification as per records, chronic respiratory failure secondary to COPD on home O2, CVA, hx PVD, hx subdural hematoma status post surgery (2018), chronic hyponatremia, chronic anemia (baseline hemoglobin 10), hypothyroidism, movement DSO on [place], spasmodic torticollis, orthostatic hypotension /hx adrenal insufficiency as per records, esophageal dysmotility as per records for dysfunction, schizoaffective disorder, mood disorder, delusional disorder, right breast mass, past tobacco abuse. Last confinement October 2022 for RUQ pain possible biliary colic. Patient roused from sleep around 2 AM with sharp midsternal chest pain going to her jaw and back and belly. No cough, no SOB symptoms. May have had something similar in the past. EMS called to patient's home. Patient declined aspirin recommendation due to history of head bleed as per EMS account. Patient brought to the ER for evaluation. Transient VF on application of data warehouse specialist as per staff. Patient comfortable during event as per RN. Possible artifact due to patient tremors as per RN account. Patient currently comfortable. MED hx as above : SURGERIES: appendectomy, tubal ligation, tonsillectomy and adenoidectomy, vascular procedures, cataract surgeries, eyelid surgery, fibroid removal, dental surgery, cholecystectomy FAMILY HISTORY: Parkinson DSE, stomach cancer, heart disease PERSONAL AND SOCIAL HISTORY: Past tobacco abuse. Occasional EtOH intake. 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 Admission Exam Per Admitting Provider GENERAL: Slightly uncomfortable, slightly anxious, no respiratory distress, chronic head tremors SKIN: Pallor, warm HEENT: Pale palpebral conjunctivae, no ptosis, dry buccal mucosa NECK : Supple, no tenderness CHEST : Decreased breath sounds, no tenderness HEART : RRR, no obvious murmurs ABDOMEN: Some distention, minimal hypogastric tenderness EXTREMITIES : Minimal LE swelling, no LE tenderness, no other conspicuous deformities noted NEUROLOGIC : Coherent, no facial asymmetry, chronic head tremors, gait and stance not assessed Principal Diagnosis Chest pain--resolved Abdominal pain--resolved Right acetabular fracture Discharge Data Allergies Allergy/AdvReac Type Severity Reaction Status Date / Time topiramate Allergy Severe Breathing/eye Verified 02/26/24 09:04 problems adhesive Allergy Intermediate Rash, Verified 02/26/24 09:04 blisters beclomethasone [From Qvar] Allergy Intermediate Lip Verified 02/26/24 09:04 swelling doxycycline Allergy Intermediate Rash Verified 02/26/24 09:04 gabapentin Allergy Intermediate Rash Verified 02/26/24 09:04 nickel Allergy Intermediate Rash Verified 02/26/24 09:04 albuterol AdvReac Unknown Lightheaded, Verified 02/26/24 09:04 difficulty breathing ephedrine AdvReac Unknown Reacts Verified 02/26/24 09:04 with another med that she is no longer taking epinephrine AdvReac Unknown reacts to Verified 02/26/24 09:04 a medication that she is no longer taking levalbuterol AdvReac Unknown Made Verified 02/26/24 09:04 breathing worse per pt procaine [From Novocain] AdvReac Unknown Reacts to Verified 02/26/24 09:04 nardil med pt was previously but no longer taking Consultations 02/26/24 07:55 Consult Cardiology Routine Procedures Performed Laboratory Results WBC 5.11 K/ul (4.8-10.8) 02/27/24 05:58 RBC 3.72 M/uL (4.20-5.40) L 02/27/24 05:58 Hgb 11.5 g/dl (12.0-16.0) L 02/27/24 05:58 Hct 34.9 % (37.0-47.0) L 02/27/24 05:58 MCV 93.8 fL (80.0-100.0) 02/27/24 05:58 MCH 30.9 pg (25.0-34.0) 02/27/24 05:58 MCHC 33.0 g/dL (32.0-36.0) 02/27/24 05:58 RDW Std Deviation 40.4 fL (36.4-46.3) 02/27/24 05:58 RDW Coeff of Paul 11.8 % (11.5-14.5) 02/27/24 05:58 Plt Count 349 K/uL (130-400) 02/27/24 05:58 MPV 9.0 fL (9.4-12.4) L 02/27/24 05:58 Immature Gran % (Auto) 0.4 % 02/27/24 05:58 Neut % (Auto) 51.9 % 02/27/24 05:58 Lymph % (Auto) 35.8 % 02/27/24 05:58 [place] % (Auto) 7.6 % 02/27/24 05:58 Eos % (Auto) 3.7 % 02/27/24 05:58 Baso % (Auto) 0.6 % 02/27/24 05:58 Neut # (Auto) 2.65 K/uL (1.40-6.50) 02/27/24 05:58 Lymph # (Auto) 1.83 K/uL (1.20-3.40) 02/27/24 05:58 [place] # (Auto) 0.39 K/uL (0.11-0.59) 02/27/24 05:58 Eos # (Auto) 0.19 K/uL (0.00-0.50) 02/27/24 05:58 Baso # (Auto) 0.03 K/uL (0.00-0.20) 02/27/24 05:58 Immature Gran # (Auto) 0.02 K/uL (0.01-0.20) 02/27/24 05:58 APTT 26 Seconds (21-31) 02/26/24 05:49 PTT Ratio 1.0 02/26/24 05:49 Sodium 137 mmol/L (136-145) 02/27/24 05:58 Potassium 4.1 mmol/L (3.5-5.1) 02/27/24 05:58 Chloride 105 mmol/L (98-107) 02/27/24 05:58 Carbon Dioxide 28 mmol/L (21-32) 02/27/24 05:58 Anion Gap 4 (3-11) 02/27/24 05:58 BUN 7 mg/dl (6-23) 02/27/24 05:58 Creatinine 0.50 mg/dl (0.6-1.2) L 02/27/24 05:58 Est Cr Clr Drug Dosing 70.9 ml/min 02/27/24 05:58 eGFR 98.36 02/27/24 05:58 BUN/Creatinine Ratio 14.0 (10-20) 02/27/24 05:58 Glucose 91 mg/dl (70-99(Fasting)) 02/27/24 05:58 Calcium 8.4 mg/dl (8.6-10.3) L 02/27/24 05:58 Magnesium 2.0 mg/dl (1.7-2.4) 02/27/24 05:58 Total Bilirubin 0.3 mg/dl (0.2-1.0) 02/26/24 03:35 AST 23 U/L (13-39) 02/26/24 03:35 ALT 4 U/L (7-52) L 02/26/24 03:35 Alkaline Phosphatase 71 U/L (34-104) 02/26/24 03:35 Troponin I High Sens 3.7 pg/ml (0-14) 02/26/24 05:49 Total Protein 6.6 gm/dl (6.0-8.3) 02/26/24 03:35 Albumin 3.9 gm/dl (3.4-5.0) 02/26/24 03:35 Globulin 2.7 gm/dl (2.5-4.0) 02/26/24 03:35 Albumin/Globulin Ratio 1.4 (0.9-2) 02/26/24 03:35 Triglycerides 109 mg/dl (0-150) 02/27/24 05:58 Cholesterol 175 mg/dl (0-200) 02/27/24 05:58 LDL Cholesterol, Calc 83 mg/dl 02/27/24 05:58 VLDL Cholesterol, Calc 22 mg/dl (0-30) 02/27/24 05:58 HDL Cholesterol 70 mg/dl 02/27/24 05:58 Cholesterol/HDL Ratio 2.5 (0-5) 02/27/24 05:58 Lipase 52 U/L (11-82) 02/26/24 03:35 Urine Color Yellow 02/26/24 13:30 Urine Appearance Clear (Clear) 02/26/24 13:30 Urine pH 7.5 (4.5-7.5) 02/26/24 13:30 Ur Specific [place] 1.024 (1.000-1.030) 02/26/24 13:30 Urine Protein Negative (Negative) 02/26/24 13:30 Urine Glucose (UA) Negative (Negative) 02/26/24 13:30 Urine Ketones Negative (Negative) 02/26/24 13:30 Urine Blood Negative (Negative) 02/26/24 13:30 Urine Nitrite Negative (Negative) 02/26/24 13:30 Urine Bilirubin Negative (Negative) 02/26/24 13:30 Urine Urobilinogen Negative (Negative) 02/26/24 13:30 Ur Leukocyte Esterase Negative (Negative) 02/26/24 13:30 Impressions Chest X-Ray 02/26/24 03:38 XR chest 1V portable CLINICAL HISTORY: Chest pain, nonspecific COMPARISON STUDY: Chest radiograph 11/03/2022. Chest CT September 06, 2018. FINDINGS: Lung volumes are normal. Lungs are clear. There is no pneumothorax or pleural effusion. Cardiac size is normal. Mediastinal contours are normal. There is no evidence for pulmonary edema. IMPRESSION: No acute cardiopulmonary findings. ACT 112: Negative or not required by law. Electronically signed by: Alvin García M.D. 02/26/2024 7:02 AM Abdomen/Pelvis CTA 02/26/24 05:24 CT ANGIOGRAPHY OF THE ABDOMEN AND PELVIS CLINICAL HISTORY: Abdominal pain. COMPARISON STUDY: CT of the abdomen and pelvis and right upper ultrasound November 03, 2022. TECHNIQUE: Helical axial images of the abdomen and pelvis were obtained during arterial phase following intravenous injection of 119 cc of Optiray 320 IV. Sagittal and coronal reconstructions were viewed as well as maximal intensity projections on an independent 3-D workstation. Automated exposure control was utilized for the study. A dose lowering technique was utilized adhering to the principles of ALARA. FINDINGS: The caliber of the abdominal aorta is normal. There is no abdominal aortic dissection. There is moderate atherosclerotic plaque within the abdominal aorta. The branch vessels are patent no pneumatosis, free air or portal venous gas is present. Mild dilatation of the common bile duct is likely related to previous cholecystectomy. Hypodense hepatic lesions are unchanged and favor cysts. Arterial phase images of the spleen, adrenal glands, kidneys and pancreas are unremarkable. There is no hydronephrosis. The bladder is distended. Caliber and wall thickness of small and large bowel are normal. The appendix is not visualized. There is no lymphadenopathy. There is no ascites. Old L1 and L3 compression fractures are present. There are no acute lumbar spine fractures. There are healing nondisplaced fractures of the right inferior and superior pelvic rami as well as the medial right pubic bone. Fracture involves the anterior wall of the right acetabulum. No proximal femoral fracture is present. IMPRESSION: 1. Normal caliber abdominal aorta. No abdominal aortic dissection. Moderate atherosclerotic plaque. Patent vessels. 2. No acute process within the abdomen or pelvis on arterial phase exam. 3. Distended bladder. 4. Nondisplaced right inferior and superior pubic rami fractures with involvement of the anterior wall of the right acetabulum. Given sclerosis, the fractures are likely subacute. ACT 112: Negative or not required by law. Electronically signed by: Alvin García M.D. 02/26/2024 6:55 AM Chest CTA 02/26/24 05:24 CT ANGIOGRAPHY OF THE CHEST DISSECTION PROTOCOL CLINICAL HISTORY: chest pain, back pain, hx thoracic aorta ectasia COMPARISON STUDY: Chest radiograph performed earlier today. Chest CT September 06, 2018. TECHNIQUE: Before and following the IV administration of 119 mL of Optiray, helical axial images of the chest were obtained. Maximal intensity projections and sagittal and coronal reformats were viewed on an independent 3D workstation. IV contrast was administered without complication. Automated exposure control was utilized for the study. A dose lowering technique was utilized adhering to the principles of ALARA. FINDINGS: Caliber of the thoracic aorta is normal. There is no thoracic aortic dissection or intramural hematoma. No pulmonary emboli are identified. There is mild cardiomegaly. No pericardial effusion is present. The central airways are patent. No pneumothorax or pleural effusion. No consolidation is identified. There is moderate upper lobe predominant emphysema. There are no suspicious pulmonary nodules. A 3 mm right apical pulmonary nodule on image 34 of [address] of June 18, 2014. This is benign. There is an old L1 compression fracture. No acute thoracic spine fractures are present. Abdomen and pelvis CT will be reported separately. IMPRESSION: 1. No thoracic aortic dissection. 2. No acute intrathoracic findings. 3. Emphysema. ACT 112: Negative or not required by law. Electronically signed by: Alvin García M.D. 02/26/2024 6:46 AM Ordered Studies 02/26/24 05:24 CT angio chest dissec wo/w con Stat CTA abdomen pelvis w con [CT angio abdomen pelvis w con] Stat Hospital Course (1) Chest pain: Chest pain Ruled out ACS H/O Coronary artery calcification as per records --Chest CTA:No thoracic aortic dissection. No acute intrathoracic findings. Emphysema. --ECHO: Normal left ventricle systolic function with EF 55 to 60%. Known dilated cardiac chambers. No significant valvular pathology. -- EKG showed no significant change from prior --Troponin negative Patient refuses to use aspirin given history of subdural hematoma in the past Continue statin Appreciate cardiology input Chest pain resolved Plan to be discharged home today Abdominal pain --CT ABD:Normal caliber abdominal aorta. No abdominal aortic dissection. Moderate atherosclerotic plaque. Patent vessels. No acute process within the abdomen or pelvis on arterial phase exam. Distended bladder. Nondisplaced right inferior and superior pubic rami fractures with involvement of the anterior wall of the right acetabulum. Given sclerosis, the fractures are likely subacute. -- Unclear etiology --Abdominal pain resolved --Tolerating regular diet diet --Urinalysis within normal limits Right acetabular fracture Admits to have a recent fall . No significant pain currently Fall precautions PT OT eval H/O CVA H/O PVD Patient refuses aspirin Lipid panel within normal limits Continue statin Chronic diastolic heart failure No signs of volume overload Continue home medications Chronic respiratory failure secondary to COPD on home O2 No signs of exacerbation Saturating well on room air Monitor Chronic hyponatremia Sodium levels at baseline Monitor H/O Traumatic subdural hematoma S/P surgery (2019) Fall precautions Hypothyroidism Continue levothyroxine Movement disorder on [place] Orthostatic hypotension H/O Adrenal insufficiency Chronic hypotension Blood pressure relatively low Received gentle IV fluids Denies any dizziness currently Other chronic conditions Schizoaffective disorder, mood disorder, delusional disorder, at baseline--continue home medications Right breast mass, patient follows with [facility] breast surgeon Past tobacco abuse DVT Px: SCDs hx subdural hematoma Code Status Full code Disposition Home Total Time Total Time Spent Total Time Spent (In Minutes): 54 minutes Discharge Plan Discharge Items Patient Disposition: Home - Self-Care Reason For Visit: CHEST PAIN Discharge Diagnosis: Chest pain--resolved Abdominal pain--resolved Right acetabular fracture Activity: Per Instructions section Exercise/Sports: Gradually increase as tolerated Non-emergency contact: Primary Care Provider Call non-emergency contact if: you have any medication questions, your symptoms worsen, your pain is concerning for you and you have a fever Follow-up/Referrals: López Edward MD [Primary Care Provider] - Diet: Heart Healthy Diet Texture: Easy to Chew Addtl Attending Provider Instructions: Follow-up with your primary care physician in 1 week -- Consider taking aspirin 81 mg daily after talking to your primary care physician if not contraindicated. Seek immediate medical attention if your symptoms reoccur or worsen Please take all medications as instructed on discharge list below. Please call if you have any questions or problems. You can reach a [facility] hospitalist on duty at [facility] 24 hours a day by calling [phone] Pending Studies at Discharge: No Stand-Alone Forms: [facility], Smoking Cessation Medications and DC Order Prescriptions: Continued coenzyme Q10 100 mg capsule 200 mg PO HS estradiol 0.01 % (0.1 mg/gram) cream 0.5 appful PV [id number] Rx Instructions: Pt uses half an applicator full, Mon/urs lamotrigine 200 mg tablet 200 mg PO HS primidone 50 mg tablet 100 mg PO BID Rx Instructions: Take 100mg by mouth in the morning and at lunchtime Daily Probiotic 2.5 billion cell capsule 1 cap PO HS polyethylene glycol 3350 [Miralax] 17 gram/dose powder 17 gm PO UD PRN (Reason: Constipation) raloxifene 60 mg Tablet 60 mg PO HS primidone 50 mg Tablet 150 mg PO HS calcium carbonate-vitamin D3 [Calcium 600 + D(3)] 600 mg(1,500mg) -200 unit Tablet 2 tab PO HS triamcinolone acetonide 0.1 % cream 1 applic TOPICAL BID PRN (Reason: Rash) omeprazole 20 mg Tablet,Delayed Release (Dr/Ec) 20 mg PO QAM clonazepam 1 mg tablet 1 mg PO TID Ensure Liquid 1 ea PO BID dicyclomine 10 mg capsule 10 mg PO BID PRN (Reason: Abdominal Pain) rosuvastatin 20 mg tablet 20 mg PO QAM Linzess 145 mcg capsule 145 mcg PO QPM famotidine 20 mg tablet 20 mg PO BID acetaminophen 500 mg Tablet 1,000 mg PO Q6H PRN (Reason: Pain) levothyroxine 50 mcg Tablet 50 mcg PO QAM Invega Sustenna 78 mg/0.5 mL syringe 78 mg IM MONTHLY Discharge Orders: Discharge Order (Routine); Ordered 02/27/24 Ordered By: Ha Hawkins Admission Data Admit Date/Time: 02/26/24 07:02 Attending Provider: Ha Hawkins Admit Provider: Fabian Napier Primary Care Provider: López Edward Other Providers: Paty Hammer; Ra Corona; Camilo Page; Wu Jimenez; Mendel Gutierrez; Ahsan Emmanuel; Kelli Travis; Sirisha Doe; Virginia Trevino; Paty Snowden; Carl Villatoro; Lenny Fontanez; Nicci Hinds; Haley Simons; Marissa Liz; Edgar Frazier; Jeronimo Francois; Luna Menendez
[2024-02-27 12:06] VITALS: BP 102/66; PULSE 88; RESP 18; TEMP 98.6; O2SAT 96
== END 2024-02-27 15:26 | disposition home or self-care (01) ==
LOC: ED 03:28 → EDINP 03:28 → 2S 10:36

== ENCOUNTER 2025-04-25 15:46 | Observation (INO) ==
--- NOTE | 2025-04-25 16:11 | Emergency Department Note ---
Impression & Plan Hypotension, Vomiting, Leukocytosis, Coffee ground emesis ED Provider Note NAME: CARA ARAGON AGE: 75 SEX: F : 1950 ARRIVES VIA: Walk-In INFORMANT: [Patient] ED PROVIDER(S): [Luis A Cadena MD] CHIEF COMPLAINT: Vomiting HISTORY OF PRESENT ILLNESS: The patient is a 75-year-old female who states that she has felt weak and dizzy and lightheaded for a few days. She has had nausea and no appetite. She has had diffuse abdominal pain. Yesterday, she vomited. The vomit was coffee- ground in appearance. The patient is not on blood thinning agents, she does not have a history of previous GI bleeding. She has not noticed black or bloody stools. Last bowel movement was 2 days ago. No fever, no cough or congestion, no increased shortness of breath. Of note, I do think the patient is a somewhat poor historian. PMHx/PSHx/Social Hx: See Below PHYSICAL EXAM: GENERAL: Patient is in no acute distress. Quite thin and frail. HEENT: No acute trauma, normocephalic atraumatic, mucous membranes moist, no nasal congestion. NECK: No stridor, no adenopathy, no meningismus, trachea is midline. LUNGS: Clear to auscultation bilaterally, no wheeze, no rhonchi, breath sounds equal. HEART: Without murmurs gallops or rubs, regular rate and rhythm. ABDOMEN: Soft, mildly diffusely tender, no peritonitis. EXTREMITIES: No cyanosis, full range of motion of all the joints without pain or difficulty. NEUROLOGIC: Poor historian, awake and alert, moves all extremities. SKIN: No jaundice, no diaphoresis. Rectal: Brown stool, heme-negative. DIFFERENTIAL DIAGNOSIS: Hematemesis, upper GI bleeding, dehydration, electrolyte imbalance, bacteremia or sepsis, among others. EMERGENCY DEPARTMENT PROCEDURES: MEDICAL DECISION MAKING: There is a mild leukocytosis which would be consistent with infection or just the stress of her current presentation. There is a normal hemoglobin and platelet count. No bandemia. No coagulopathy. No significant electrolyte abnormality or renal failure. No concerning liver enzyme elevation. There was no pancreatitis. ECG shows a sinus rhythm, no ST elevation. Cardiac enzyme testing x 1 is not consistent with acute cardiac injury. Urinalysis shows some dehydration, no infection. Chest film did not show pneumonia or mediastinal widening. Abdominal and pelvis CT did not show bowel obstruction or any acute surgical pathology. On exam, the patient was initially hypotensive, she was thin and frail. The patient received 1 L of IV saline for hydration. She received IV Protonix, IV Pepcid and IV Zofran. The patient's blood pressure did improve significantly with the IV hydration. She was seen to be resting comfortably. She was feeling improved. With the patient's complaints of coffee-ground emesis, with the hypotension and dizziness/weakness described, admission is warranted. Further workup/GI consultation is needed. I spoke with the patient and case management, the on-call hospitalist was consulted. Prior/Outside records/notes reviewed: None ECG per my interpretation: Indication was weakness and vomiting. The ECG shows a normal sinus rhythm with a rate of 87. There is some nonspecific ST change. There is an incomplete right bundle branch block. There is no ST elevation, no PVCs. The QTc is 459. Continuous Cardiac Monitoring per my interpretation: An order was placed for continuous cardiac monitoring. The monitor shows a rate of 88 with normal sinus rhythm. Imaging/x-ray results per my interpretation: Chest x-ray does not show pneumonia or CHF. There is no mediastinal widening. Chronic Medical/Social conditions affecting care: Advanced age. Care/Management discussed with: Case management, the on-call hospitalist. Level of care consideration(s): After review of the information above and other included data: --I believe the patient requires escalation of care to admission Critical Care Note: I have personally spent 52 minutes of critical care time in the direct management of this patient. This includes bedside care, interpretation of diagnostic studies, and testing, discussion with consultants, patient, and family members, and other required patient management activities. This 52 minutes is in excess of all separately billable procedures. DISPOSITION: Admission Past Med/Surg History Problem List Coffee ground emesis (Acute) Leukocytosis (Acute) Vomiting (Acute) Hypotension (Acute) Coffee ground emesis Abdominal pain Nausea and vomiting Coronary artery calcification Paroxysmal ventricular fibrillation (Acute) Chest pain (Acute) Spasmodic torticollis Per records, pt denies pt states FROM neck Abnormal finding on CT scan Schizophrenia schizoaffective disorder per PCP note 04/19/23 Movement disorder Hypothyroid (Chronic) Biliary sludge (Acute) Bipolar 1 disorder (Chronic) Recurrent falls last one 07/2021; bump on head-"leakage noted from previous hematoma" COPD (chronic obstructive pulmonary disease) (Chronic) inhaler daily--chronic cough/wheeze daily per pt Osteoporosis (Chronic) Tremor (Chronic) Dystonia (Chronic) PTSD (post-traumatic stress disorder) (Chronic) hx Orthostatic hypotension (Chronic) Major depressive disorder (Chronic 11/01/11) History of left heart catheterization (LHC) (Chronic) 2012 @ [facility]--no stents History of appendectomy (Chronic) History of dilation and curettage (Chronic) mult History of laparotomy (Chronic) x2---uterine fibroids H/O esophagogastroduodenoscopy (Chronic) Medical History Transaminitis Osteoporosis Orthostatic hypotension Neuropathic tremor essential tremor; follows with neurology [place] Hypothyroidism GERD (gastroesophageal reflux disease) with esophageal dysmotility Chronic obstructive pulmonary disease 2L O2 HS Seborrheic keratosis Nocturnal hypoxia COPD with nocturnal hypoxia; uses 2L O2 HS Mucocele of lip Limb pain Generalized osteoarthritis of multiple sites Depression Anxiety Actinic keratitis Constipation Liver mass PCP monitoring Diastolic heart failure follows with Dr. Corona Balance problem Poor memory History of subdural hematoma 02/2019 fall; she is s/p coil embolization of middle meningeal artery Pancreatic mass pcp monitoring; per pt "told she no longer has it" Adrenal insufficiency Lung nodule monitoring Spinal stenosis Degenerative disc disease Chronic back pain Kidney stones hx-passed on own Anemia Hearing deficit Stroke 1983, numbness of left side of face Ectopic atrial tachycardia follows Dr. Corona Thoracic aortic ectasia follows Dr. Corona Lumbar compression fracture Surgical History Hx laparoscopic cholecystectomy 11/20/22 [facility]: [place]: MAC#3, ETT#7, atraumatic DL x 1 Hx of tubal ligation History of transesophageal echocardiography (SHAYE) S/P subdural hematoma evacuation [facility] [place] > November 2019 coil embolization of middle meningeal artery History of colonoscopy with polypectomy History of tooth extraction all upper teeth/most of lower History of tonsillectomy and adenoidectomy History of bilateral cataract extraction per pt had it done twice on both eyes Status post glaucoma surgery unsure which eye Family History Brother Family history of diabetes mellitus Family hx colonic polyps Son Family history of diabetes mellitus Aunt Family history of diabetes mellitus Uncle Family history of diabetes mellitus Mother Family hx of colon cancer Cancer Hypertension Sister Family hx of colon cancer Colorectal cancer Other No family history of adverse response to anesthesia Social History Smoking Status: Former smoker Tobacco Type: Cigarettes Age Started Using Tobacco: 37; Age Quit Using Tobacco: 62; packs per day: 1.5; Second Hand Exposure: No; Do You Dip or Chew Tobacco: No; Hx Alcohol Use: Yes Alcohol type: wine and hard liquor Alcohol Intake Frequency: Monthly or Less Hx Substance Use: No Preferred Language: Albanian Communication Ability: Effective Thermostatic Controls Supervisor Required: No Beliefs That Will Affect Care: None marital status: Current Living Situation: Alone current occupational status: retired How many Children do You have: 3 Other Information That Helps Us Care for You: No Feels Safe at Home: Yes Safety Concerns: Feels Safe At This Time Assistive Devices: Cane, Oxygen - at Night and Walker Allergies Allergies Allergy/AdvReac Type Severity Reaction Status Date / Time albuterol Allergy Severe DIFFICULTY Verified 04/25/25 17:13 BREATHING/LIGHTHEADEDNESS topiramate Allergy Severe Breathing/eye Verified 04/25/25 17:13 problems adhesive Allergy Intermediate Rash, Verified 04/25/25 17:13 blisters beclomethasone [From Qvar] Allergy Intermediate Lip Verified 04/25/25 17:13 swelling doxycycline Allergy Intermediate Rash Verified 04/25/25 17:13 gabapentin Allergy Intermediate Rash/AFFECTS Verified 04/25/25 17:13 MOODS latex Allergy Intermediate RASH/BLISTE Verified 04/25/25 17:13 RS nickel Allergy Intermediate Rash Verified 04/25/25 17:13 levalbuterol AdvReac Intermediate Made Verified 04/25/25 17:13 breathing worse per pt ephedrine AdvReac Unknown Reacts Verified 04/25/25 17:13 with another med that she is no longer taking cheese AdvReac Hypertensio Verified 04/25/25 19:25 n Home Meds Home Medications Medication Instructions Recorded Confirmed coenzyme Q10 100 mg capsule 100 mg PO HS 02/05/19 04/25/25 lamotrigine 200 mg tablet 200 mg PO HS 02/05/19 04/25/25 primidone 50 mg tablet 100 mg PO BID 02/05/19 04/25/25 Lactobacillus 1 cap PO QAM 02/07/19 04/25/25 acidophilus-Bifidobac.animalis 2.5 billion cell capsule (Daily Probiotic) primidone 50 mg tablet 150 mg PO HS 03/19/19 04/25/25 raloxifene 60 mg tablet 60 mg PO HS 03/19/19 04/25/25 clonazepam 1 mg tablet 1 mg PO TID 05/19/19 04/25/25 food supplemt, lactose-reduced 1 ea PO BID 01/09/20 04/25/25 (Ensure oral liquid) triamcinolone acetonide 0.1 % 1 applic topical BID PRN Rash 01/17/20 04/25/25 topical cream acetaminophen 500 mg tablet 1,000 mg PO TID PRN Pain 12/31/21 04/25/25 levothyroxine 50 mcg tablet 50 mcg PO 4XWK 12/31/21 04/25/25 dicyclomine 10 mg capsule 10 mg PO BID PRN Abdominal Pain 11/03/22 04/25/25 famotidine 20 mg tablet 20 mg PO BID 11/03/22 04/25/25 linaclotide 145 mcg capsule 145 mcg PO QDL 11/03/22 04/25/25 (Linzess) rosuvastatin 20 mg tablet 20 mg PO QAM 11/03/22 04/25/25 adapalene 0.1 % topical gel 1 applic topical HS PRN APPLY TO 04/25/25 04/25/25 (Differin) FACE NEEDED calcium carbonate (Calcium 600) 1,200 mg PO DAILY 04/25/25 04/25/25 camphor-methyl salicylate-menthol 1 patch topical DIRECTED PRN 04/25/25 04/25/25 topical patch PAIN/NECK & SHOULDERS carbidopa 25 mg-levodopa 100 mg 2 tab PO TID 04/25/25 04/25/25 tablet cholecalciferol (vitamin D3) 25 25 mcg PO DAILY 04/25/25 04/25/25 mcg (1,000 unit) capsule (Vitamin D3) conjugated estrogens 0.625 mg/gram 500 mg vaginal 2XWK 04/25/25 04/25/25 vaginal cream (Premarin) diclofenac sodium 1 % topical gel 2 g topical TID PRN Pain 04/25/25 04/25/25 duloxetine 30 mg capsule,delayed 30 mg PO QAM 04/25/25 04/25/25 release levothyroxine 50 mcg tablet 75 mcg PO 3XWK 04/25/25 04/25/25 omeprazole 40 mg capsule,delayed 40 mg PO DAILYBB 04/25/25 04/25/25 release paliperidone 3 mg tablet,extended 3 mg PO QAM 04/25/25 04/25/25 release 24 hr (Invega) sucralfate 1 gram tablet 1 g PO BID PRN Heartburn 04/25/25 04/25/25 zolpidem 10 mg tablet 10 mg PO HS 04/25/25 04/25/25 Results & Data (ED) Vital Signs Vital Signs - 24 hr 04/25/25 15:50 04/25/25 15:59 04/25/25 16:00 Temperature 37 C Temperature Source Temporal Artery Scan Pulse Rate 62 88 Pulse Rate [Apical] 88 Respiratory Rate 16 16 16 Respiratory Effort / Characteristics Non-Labored Spontaneous Respiratory Depth Normal Blood Pressure 76/52 L Blood Pressure [Right Arm] 99/62 L Blood Pressure Mean 60 Blood Pressure Mean [Right Arm] 74 Pulse Oximetry 97 98 97 Oxygen Delivery Method Room Air Room Air Sepsis Recent Fever Within 48 Hours No Sepsis New/Unexplained Change in Mental Status No Sepsis Action Taken by Nursing No Action Required 04/25/25 16:18 04/25/25 16:30 04/25/25 17:00 Temperature Temperature Source Pulse Rate 93 H Pulse Rate [Apical] 82 81 Respiratory Rate 16 16 Respiratory Effort / Characteristics Respiratory Depth Blood Pressure Blood Pressure [Right Arm] 117/76 128/81 Blood Pressure Mean Blood Pressure Mean [Right Arm] 89 96 Pulse Oximetry 96 95 Oxygen Delivery Method Room Air Room Air Sepsis Recent Fever Within 48 Hours Sepsis New/Unexplained Change in Mental Status Sepsis Action Taken by Care Home Medications Current Medication List: was personally reviewed by me Laboratory Data Attestation: I reviewed the patient's lab results. 04/25/25 16:07 04/25/25 16:07 Lab Results 04/25/25 04/25/25 04/25/25 Range/Units 16:04 16:07 16:09 WBC 14.24 H (4.8-10.8) K/ul RBC 4.02 L (4.20-5.40) M/uL Hgb 13.0 (12.0-16.0) g/dL POC Hgb 13.3 (12.0-16.0) g/dl Hct 38.0 (37.0-47.0) % POC Hct 39 (37-47) % MCV 94.5 (80.0-100.0) fL MCH 32.3 (25.0-34.0) pg MCHC 34.2 (32.0-36.0) g/dL RDW Std Deviation 39.7 (36.4-46.3) fL RDW Coeff of Paul 11.5 (11.5-14.5) % Plt Count 376 (130-400) K/uL MPV 9.4 (9.4-12.4) fL Immature Gran % (Auto) 0.6 % Neut % (Auto) 85.1 % Lymph % (Auto) 8.8 % [place] % (Auto) 5.3 % Eos % (Auto) 0.0 % Baso % (Auto) 0.2 % Neut # (Auto) 12.11 H (1.40-6.50) K/uL Lymph # (Auto) 1.26 (1.20-3.40) K/uL [place] # (Auto) 0.75 H (0.11-0.59) K/uL Eos # (Auto) 0.00 (0.00-0.50) K/uL Baso # (Auto) 0.03 (0.00-0.20) K/uL Immature Gran # (Auto) 0.09 (0.01-0.20) K/uL PT 11.6 (9.0-12.0) Seconds INR 1.1 (0.9-1.1) APTT 24 (21-31) Seconds PTT Ratio 0.9 POC Sodium 133 L (135-144) mmol/L Sodium 132 L (136-145) mmol/L POC Potassium 3.5 (3.3-5.0) mmol/L Potassium 3.9 (3.5-5.1) mmol/L POC Chloride 96 L (101-112) mmol/L Chloride 96 L (98-107) mmol/L Carbon Dioxide 23 (21-32) mmol/L POC Total CO2 22 L (24-31) mmol/L Anion Gap 13 H (3-11) POC Anion Gap 19.0 (16-25) mmol/L POC BUN 16 (7-18) mg/dl BUN 16 (6-23) mg/dl Creatinine 1.12 (0.6-1.2) mg/dl POC Creatinine 1.1 (0.6-1.3) mg/dl Est Cr Clr Drug Dosing 30.1 ml/min eGFR 50.96 BUN/Creatinine Ratio 14.3 (10-20) Glucose 112 H (70-99(Fasting)) mg/dl POC Glucose (other) 113 H (70-99) mg/dl Calcium 8.7 (8.6-10.3) mg/dl POC Ioniz Calcium Isaiah 1.04 L (1.12-1.32) mmol/l Magnesium 2.2 (1.7-2.4) mg/dl Total Bilirubin 0.6 (0.2-1.0) mg/dl AST 57 H (13-39) U/L ALT 51 (7-52) U/L Alkaline Phosphatase 32 L (34-104) U/L Troponin I High Sens 12.7 (0-14) pg/ml Total Protein 7.7 (6.0-8.3) gm/dl Albumin 4.4 (3.4-5.0) gm/dl Globulin 3.3 (2.5-4.0) gm/dl Albumin/Globulin Ratio 1.3 (0.9-2) Lipase 24 (11-82) U/L Procalcitonin 0.03 (0-0.5) ng/ml Blood Type A Positive Antibody Screen NEGATIVE Administered Medications Carbidopa/Levodopa (Carbidopa/Levodopa 25/100mg Tab) 2 tab PO TID [facility] Stop: 05/25/25 20:59 Last Admin: 04/25/25 22:26 Dose: 2 tab Documented By: DENSIE Clonazepam (Clonazepam 1 Mg Tab) 1 mg PO TID [facility] Stop: 05/25/25 20:59 Last Admin: 04/25/25 22:45 Dose: 1 mg Documented By: DENISE Sodium Chloride (Nss) 1,000 mls @ 80 mls/hr IV .[id number] [facility] Stop: 04/28/25 18:29 Last Admin: 12/04/25 21:24 Dose: 80 mls/hr Documented By: DENISE Pantoprazole Sodium (Protonix) 40 mg in 10 mls @ 5 mls/min IV BID [facility] Stop: 05/25/25 20:59 Last Admin: 04/25/25 22:26 Dose: 5 mls/min Documented By: DENISE Lamotrigine (Lamotrigine 100 Mg Tab) 200 mg PO [facility]; Protocol Stop: 05/25/25 20:59 Last Admin: 04/25/25 22:45 Dose: 200 mg Documented By: DENISE Ondansetron HCl (Ondansetron Inj 2 Mg/Ml 2 Ml Vial) 4 mg IV Q6H PRN PRN Reason: Nausea Stop: 05/25/25 20:51 Last Admin: 04/25/25 21:20 Dose: 4 mg Documented By: DENISE Primidone (Primidone 50 Mg Tab) 150 mg PO [facility] Stop: 05/25/25 20:59 Last Admin: 04/25/25 22:45 Dose: 150 mg Documented By: DENISE Zolpidem Tartrate (Zolpidem Tartrate 5 Mg Tab) 10 mg PO [facility] Stop: 05/25/25 20:59 Last Admin: 04/25/25 22:44 Dose: 10 mg Documented By: DENISE Discontinued Medications Sodium Chloride (Nss) 1,000 mls @ 999 mls/hr IV .Q1H1M [facility] Stop: 04/25/25 17:00 Last Infusion: 04/25/25 17:31 Dose: Infused Documented By: gasper Admin: 04/25/25 16:13 Dose: 999 mls/hr Documented By: gasper Famotidine (Pepcid 20mg Iv Push) 20 mg in 5 mls @ 2.5 mls/min IV NOW STA Stop: 04/25/25 15:58 Last Admin: 04/25/25 16:14 Dose: 2.5 mls/min Documented By: gasper Pantoprazole Sodium 80 mg/ (Dextrose) 120 mls @ 400 mls/hr IV NOW ONE Stop: 04/25/25 16:14 Last Infusion: 04/25/25 17:41 Dose: Infused Documented By: gasper Admin: 04/25/25 17:03 Dose: 400 mls/hr Documented By: JULES Ioversol (Optiray 320 100ml) 95 ml IV ONCE ONE Stop: 04/25/25 17:20 Last Admin: 04/25/25 17:20 Dose: 95 ml Documented By: DORIS Ondansetron HCl (Ondansetron Inj 2 Mg/Ml 2 Ml Vial) 4 mg IV NOW STA Stop: 04/25/25 15:58 Last Admin: 04/25/25 16:13 Dose: 4 mg Documented By: gasper Imaging Data Radiologist's Impression: Chest X-Ray 04/25/25 15:57 Chest radiograph, one view History: Vomiting Comparison: None Findings: Single AP view of the chest performed. No focal consolidation or pleural effusion. No pneumothorax. The cardiomediastinal silhouette is within normal limits. Normal pulmonary vascularity. No evidence for lymphadenopathy. No visualized bony or soft tissue abnormality. Impression: Normal chest radiograph Electronically signed by Andres Humphrey 04-25-2025 4:44 PM Abdomen/Pelvis CT 04/25/25 17:07 EXAMINATION: CT of the abdomen and pelvis performed after the administration of IV contrast TECHNIQUE: Helical CT images from the lung bases through the symphysis pubis were obtained with contrast. Coronal and sagittal reformatted images were generated at a workstation for further assessment. Dose reduction techniques were achieved by using automatic exposure control and/or adjustment of mA and/or kV according to patient size and/or use of iterative reconstruction technique. COMPARISON: 02/26/2024 HISTORY: Hematemesis FINDINGS: Lower chest: No consolidation. No pleural effusion or pneumothorax. Liver: No suspicious liver lesions. Portal veins appear patent. Scattered small hepatic cysts. Gallbladder: Cholecystectomy Spleen: Normal size. Pancreas: No suspicious pancreatic lesions. The pancreatic duct is not dilated. Adrenal glands: No adrenal nodules. Kidneys: No hydronephrosis or obstructing renal stones. Small right renal cyst. Bladder / Pelvic organs: Unremarkable. Bowel: No bowel obstruction. No abnormal bowel wall thickening. The appendix is unremarkable. Lymph nodes: No retroperitoneal, mesenteric, or pelvic lymphadenopathy. Peritoneum / Retroperitoneum: No free fluid or air within the abdomen. Vessels: No infrarenal aortic aneurysm. Bones and soft tissues: No suspicious lesion in the bones. IMPRESSION: No acute finding in the abdomen or pelvis. Electronically signed by Andres Humphrey 04-25-2025 6:00 PM Discharge Plan Visit Data Chief Complaint: Vomiting Stated Complaint: NOT EATING OR DRINKING, VOMIT, DEHYDRATED ED Provider: Luis A Cadena Discharge Problem: Hypotension, Vomiting, Leukocytosis, Coffee ground emesis Patient Disposition: Admitted As Inpatient Condition: Serious Discharge Instructions Interventions: ED Discharge Assessment Last Done: 04/25/25 20:13 Discharge Problem: Hypotension Qualifiers: Hypotension type: unspecified hypotension type Qualified Code(s): I95.9 - Hypotension, unspecified Vomiting Qualifiers: Vomiting type: unspecified Nausea presence: with nausea Qualified Code(s): R 11.2 - Nausea with vomiting, unspecified Leukocytosis Qualifiers: Leukocytosis type: unspecified Qualified Code(s): D72.829 - Elevated white blood cell count, unspecified
[2025-04-25] MEDS: SODIUM CHLORIDE 0.9% 1,000 ML IV SCH ×2 (16:13→21:24)
[2025-04-25] MEDS: ONDANSETRON INJ 2 MG/ML 2 ML VIAL IV STA (16:13)
[2025-04-25] MEDS: FAMOTIDINE 20MG IV PUSH 20 MG/5 ML SYR IV STA (16:14)
[2025-04-25 16:26] LABS: Hematocrit (blood only) 38.0 % (37.0-47.0); Hemoglobin 13.0 g/dL (12.0-16.0); Immature Granulocytes # (auto) 0.09 K/uL (0.01-0.20); Immature Granulocytes % (auto) 0.6 %; Mean Corpuscular Hemoglobin 32.3 pg (25.0-34.0); Mean Corpuscular Volume 94.5 fL (80.0-100.0); Platelet Count 376 K/uL (130-400); RDW Standard Deviation 39.7 fL (36.4-46.3); Red Blood Count 4.02 M/uL (4.20-5.40); White Blood Count 14.24 K/ul (4.8-10.8)
[2025-04-25 16:42] LABS: Alanine Aminotransferase 51.0 U/L (7-52); Albumin Globulin Ratio 1.3 (0.9-2); Albumin Level 4.4 gm/dl (3.4-5.0); Alkaline Phosphatase 32.0 U/L (34-104); Anion Gap 13.0 (3-11); Bilirubin,Total 0.6 mg/dl (0.2-1.0); Blood Urea Nitrogen 16.0 mg/dl (6-23); Calcium 8.7 mg/dl (8.6-10.3); Carbon Dioxide 23.0 mmol/L (21-32); Chloride 96.0 mmol/L (98-107); Creatinine Clr Calc Pharmacy 30.1 ml/min; Globulin 3.3 gm/dl (2.5-4.0); Glucose 112.0 mg/dl (70-99(Fasting)); Lipase 24.0 U/L (11-82); Magnesium 2.2 mg/dl (1.7-2.4); Potassium 3.9 mmol/L (3.5-5.1); Sodium 132.0 mmol/L (136-145); Total Protein 7.7 gm/dl (6.0-8.3)
--- NOTE | 2025-04-25 16:47 | XRay Report ---
Chest radiograph, one view History: Vomiting Comparison: None Findings: Single AP view of the chest performed. No focal consolidation or pleural effusion. No pneumothorax. The cardiomediastinal silhouette is within normal limits. Normal pulmonary vascularity. No evidence for lymphadenopathy. No visualized bony or soft tissue abnormality. Impression: Normal chest radiograph Electronically signed by Andres Humphrey 04-25-2025 4:44 PM
[2025-04-25 16:56] LABS: INR 1.1 (0.9-1.1); Partial Thromboplastin Time 24 Seconds (21-31); Prothrombin Time 11.6 Seconds (9.0-12.0)
[2025-04-25] MEDS: OPTIRAY 320 100ml IV ONE (17:20)
--- NOTE | 2025-04-25 18:00 | CT Scan Report ---
EXAMINATION: CT of the abdomen and pelvis performed after the administration of IV contrast TECHNIQUE: Helical CT images from the lung bases through the symphysis pubis were obtained with contrast. Coronal and sagittal reformatted images were generated at a workstation for further assessment. Dose reduction techniques were achieved by using automatic exposure control and/or adjustment of mA and/or kV according to patient size and/or use of iterative reconstruction technique. COMPARISON: 02/26/2024 HISTORY: Hematemesis FINDINGS: Lower chest: No consolidation. No pleural effusion or pneumothorax. Liver: No suspicious liver lesions. Portal veins appear patent. Scattered small hepatic cysts. Gallbladder: Cholecystectomy Spleen: Normal size. Pancreas: No suspicious pancreatic lesions. The pancreatic duct is not dilated. Adrenal glands: No adrenal nodules. Kidneys: No hydronephrosis or obstructing renal stones. Small right renal cyst. Bladder / Pelvic organs: Unremarkable. Bowel: No bowel obstruction. No abnormal bowel wall thickening. The appendix is unremarkable. Lymph nodes: No retroperitoneal, mesenteric, or pelvic lymphadenopathy. Peritoneum / Retroperitoneum: No free fluid or air within the abdomen. Vessels: No infrarenal aortic aneurysm. Bones and soft tissues: No suspicious lesion in the bones. IMPRESSION: No acute finding in the abdomen or pelvis. Electronically signed by Andres Humphrey 04-25-2025 6:00 PM
--- NOTE | 2025-04-25 18:16 | History & Physical Report ---
Date of Service April 25, 2025 Assessment & Plan (1) Nausea and vomiting: (2) Abdominal pain: (3) Coffee ground emesis: Plan Patient is a 75-year-old female with past medical history significant for mild atherosclerotic calcification of the aorta, moderate coronary artery c alcification, angiographically normal coronary arteries via diagnostic cardiac catheterization in June 2014, HLD, mild MR, chronic diastolic HF, aortic valve sclerosis/stenosis, ectopic atrial tachycardia, history of fall with symptomatic right chronic subdural hematoma in 2018 s/p particle and coil embolization of the middle meningeal artery, hypothyroidism, COPD, GERD, IBS with constipation, moderate protein calorie malnutrition, spasmodic torticollis, movement disorder, chronic anemia, chronic hyponatremia, schizoaffective disorder and past tobacco use who presented to the ED with c/o poor oral intake due to N/V. Patient is somewhat of a poor historian. Frequent periods of forgetfulness with variations in description of presenting illness. #N/V, coffee ground emesis >> r/o upper GI bleed #Abdominal pain C/o abd pain x 1mo with acute worsening x past couple days, primarily hypogastric Associated sx including anorexia x 3 days, N/V yesterday with emesis resembling coffee ground emesis H/H stable No reported hematochezia or melena FOBT negative in ED Mild leukocytosis, check procal Not meeting sepsis criteria Will check lactate Check UA CT abd/pelv unremarkable Clear liquid diet for now NPO at [place] with GI consult for consideration of EGD eval tomorrow Follow H/H trend PRN analgesia, antiemetics IV PPI BID Replete electrolytes PRN Hold raloxifene (used for osteoporosis) Avoid NSAIDS #Hypotension Was notably hypotensive with SBP in the 70s in ED triage area Likely 2/2 dehydration No reported syncope BP significantly improved s/p IVF, continue MIVF Did have some lightheadedness/dizziness which improved with IVF Routine BP monitoring #Movement disorder Lives alone Continue Sinemet, primidone Appreciate PT/OT evals #Schizoaffective disorder Continue home psych med regimen #Hypothyroidism Continue levothyroxine Check TSH in AM #Moderate protein calorie malnutrition Continue Ensure drinks #IBS with constipation Continue Linzess #HLD #CAD Continue statin DVT Prophylaxis: SCDs/TEDs only for now (h/o subdural hematoma) Code Status: FULL CODE PCP: López Edward MD Disposition: Admit to med/telemetry Patient seen in collaboration with Dr. Hawkins. Please see addendum. I spent a total of 74 minutes coordinating, documenting, and providing care for this patient excluding time spent in the performance of separately billed services or time spent by another provider/QHP. This included personally reviewing all current laboratories and imaging studies, medical reconciliation, outpatient chart review and discussion with specialists. This chart was completed in part utilizing Speech Voice Recognition Software. Grammatical errors, random word insertions, pronoun errors, and incomplete sentences are an occasional consequence of this system due to software limitations, ambient noise, and hardware issues. Any formal questions or concerns about the content, text, or information contained within the body of this dictation should be directly addressed to the provider for clarification. History of Present Illness Chief Complaint: Vomiting, poor oral intake Primary Care Provider: López Edward MD Patient is a 75-year-old female with past medical history significant for mild atherosclerotic calcification of the aorta, moderate coronary artery calcification, angiographically normal coronary arteries via diagnostic cardiac catheterization in June 2014, HLD, mild MR, chronic diastolic HF, aortic valve sclerosis/stenosis, ectopic atrial tachycardia, history of fall with symptomatic right chronic subdural hematoma in 2019 s/p particle and coil embolization of the middle meningeal artery, hypothyroidism, COPD, GERD, IBS with constipation, moderate protein calorie malnutrition, spasmodic torticollis, movement disorder, chronic anemia, chronic hyponatremia, schizoaffective disorder and past tobacco use who presented to the ED with c/o poor oral intake due to N/V. Patient is somewhat of a poor historian, frequent periods of forgetfulness with variations in description of presenting illness. Patient seen in ED with Dr. Hawkins. Reports crampy abdominal pain, mostly generalized, for the past month or so. Waxes and wanes. Became more persistent beginning yesterday. Started vomiting yesterday. Describes emesis appearance that resembled coffee grounds; no connor blood seen in vomitus. Has not eaten for about 3 days. No BM in about 3 or 4 days. Normally moves bowels every day or every other day. Recall his last BM was formed, denies any hematochezia or melena. Was having some constipation prior to her last BM. Reports notable lightheadedness and dizziness that started today. No falls or trauma. No reported syncope. Lives by herself. Has a son that lives approximately 20 minutes away; he is who brought her to the ED. Has not been compliant with home oxygen use, reports using oxygen only at night - unsure of how many liters. Denies any recent anti-inflammatory use. FOBT negative in ED. Was extremely hypotensive in triage however this improved drastically s/p IVF. Allergies Allergy/AdvReac Type Severity Reaction Status Date / Time albuterol Allergy Severe DIFFICULTY Verified 04/25/25 17:13 BREATHING/LIGHTHEADEDNESS topiramate Allergy Severe Breathing/eye Verified 04/25/25 17:13 problems adhesive Allergy Intermediate Rash, Verified 04/25/25 17:13 blisters beclomethasone [From Qvar] Allergy Intermediate Lip Verified 04/25/25 17:13 swelling doxycycline Allergy Intermediate Rash Verified 04/25/25 17:13 gabapentin Allergy Intermediate Rash/AFFECTS Verified 04/25/25 17:13 MOODS latex Allergy Intermediate RASH/BLISTE Verified 04/25/25 17:13 RS nickel Allergy Intermediate Rash Verified 04/25/25 17:13 levalbuterol AdvReac Intermediate Made Verified 04/25/25 17:13 breathing worse per pt ephedrine AdvReac Unknown Reacts Verified 04/25/25 17:13 with another med that she is no longer taking TYRAMINE AdvReac Severe AGED Uncoded 04/25/25 17:13 CHEESES--HYPERTENSION--CAUSED STROKE Home Medications Medication Instructions Recorded Confirmed Type coenzyme Q10 100 mg capsule 100 mg PO HS 02/05/19 04/25/25 History lamotrigine 200 mg tablet 200 mg PO HS 02/05/19 04/25/25 History primidone 50 mg tablet 100 mg PO BID 02/05/19 04/25/25 History Lactobacillus 1 cap PO QAM 02/07/19 04/25/25 History acidophilus-Bifidobac.animalis 2.5 billion cell capsule (Daily Probiotic) primidone 50 mg tablet 150 mg PO HS 03/19/19 04/25/25 History raloxifene 60 mg tablet 60 mg PO HS 03/19/19 04/25/25 History clonazepam 1 mg tablet 1 mg PO TID 05/19/19 04/25/25 History food supplemt, lactose-reduced 1 ea PO BID 01/09/20 04/25/25 History (Ensure oral liquid) triamcinolone acetonide 0.1 % 1 applic topical BID PRN Rash 01/17/20 04/25/25 History topical cream acetaminophen 500 mg tablet 1,000 mg PO TID PRN Pain 12/31/21 04/25/25 History levothyroxine 50 mcg tablet 50 mcg PO 4XWK 12/31/21 04/25/25 History dicyclomine 10 mg capsule 10 mg PO BID PRN Abdominal Pain 11/03/22 04/25/25 History famotidine 20 mg tablet 20 mg PO BID 11/03/22 04/25/25 History linaclotide 145 mcg capsule 145 mcg PO QDL 11/03/22 04/25/25 History (Linzess) rosuvastatin 20 mg tablet 20 mg PO QAM 11/03/22 04/25/25 History adapalene 0.1 % topical gel 1 applic topical HS PRN APPLY TO 04/25/25 04/25/25 History (Differin) FACE NEEDED calcium carbonate (Calcium 600) 1,200 mg PO DAILY 04/25/25 04/25/25 History camphor-methyl salicylate-menthol 1 patch topical DIRECTED PRN 04/25/25 04/25/25 History topical patch PAIN/NECK & SHOULDERS carbidopa 25 mg-levodopa 100 mg 2 tab PO TID 04/25/25 04/25/25 History tablet cholecalciferol (vitamin D3) 25 25 mcg PO DAILY 04/25/25 04/25/25 History mcg (1,000 unit) capsule (Vitamin D3) conjugated estrogens 0.625 mg/gram 500 mg vaginal 2XWK 04/25/25 04/25/25 History vaginal cream (Premarin) diclofenac sodium 1 % topical gel 2 g topical TID PRN Pain 04/25/25 04/25/25 History duloxetine 30 mg capsule,delayed 30 mg PO QAM 04/25/25 04/25/25 History release levothyroxine 50 mcg tablet 75 mcg PO 3XWK 04/25/25 04/25/25 History omeprazole 40 mg capsule,delayed 40 mg PO DAILYBB 04/25/25 04/25/25 History release paliperidone 3 mg tablet,extended 3 mg PO QAM 04/25/25 04/25/25 History release 24 hr (Invega) sucralfate 1 gram tablet 1 g PO BID PRN Heartburn 04/25/25 04/25/25 History zolpidem 10 mg tablet 10 mg PO HS 04/25/25 04/25/25 History Past Med/Surg History Problem List Coffee ground emesis Abdominal pain Nausea and vomiting Coronary artery calcification Paroxysmal ventricular fibrillation (Acute) Chest pain (Acute) Spasmodic torticollis Per records, pt denies pt states FROM neck Abnormal finding on CT scan Schizophrenia schizoaffective disorder per PCP note 04/19/23 Movement disorder Hypothyroid (Chronic) Biliary sludge (Acute) Bipolar 1 disorder (Chronic) Recurrent falls last one 07/2021; bump on head-"leakage noted from previous hematoma" COPD (chronic obstructive pulmonary disease) (Chronic) inhaler daily--chronic cough/wheeze daily per pt Osteoporosis (Chronic) Tremor (Chronic) Dystonia (Chronic) PTSD (post-traumatic stress disorder) (Chronic) hx Orthostatic hypotension (Chronic) Major depressive disorder (Chronic 11/01/11) History of left heart catheterization (LHC) (Chronic) 2013 @ [facility]--no stents History of appendectomy (Chronic) History of dilation and curettage (Chronic) mult History of laparotomy (Chronic) x2---uterine fibroids H/O esophagogastroduodenoscopy (Chronic) Medical History Transaminitis Osteoporosis Orthostatic hypotension Neuropathic tremor essential tremor; follows with neurology [place] Hypothyroidism GERD (gastroesophageal reflux disease) with esophageal dysmotility Chronic obstructive pulmonary disease 2L O2 HS Seborrheic keratosis Nocturnal hypoxia COPD with nocturnal hypoxia; uses 2L O2 HS Mucocele of lip Limb pain Generalized osteoarthritis of multiple sites Depression Anxiety Actinic keratitis Constipation Liver mass PCP monitoring Diastolic heart failure follows with Dr. Corona Balance problem Poor memory History of subdural hematoma 02/2019 fall; she is s/p coil embolization of middle meningeal artery Pancreatic mass pcp monitoring; per pt "told she no longer has it" Adrenal insufficiency Lung nodule monitoring Spinal stenosis Degenerative disc disease Chronic back pain Kidney stones hx-passed on own Anemia Hearing deficit Stroke 1983, numbness of left side of face Ectopic atrial tachycardia follows Dr. Corona Thoracic aortic ectasia follows Dr. Corona Lumbar compression fracture Surgical History Hx laparoscopic cholecystectomy 11/20/22 [facility]: [place]: MAC#3, ETT#7, atraumatic DL x 1 Hx of tubal ligation History of transesophageal echocardiography (SHAYE) S/P subdural hematoma evacuation [facility] [place] coil embolization of middle meningeal artery History of colonoscopy with polypectomy History of tooth extraction all upper teeth/most of lower History of tonsillectomy and adenoidectomy History of bilateral cataract extraction per pt had it done twice on both eyes Status post glaucoma surgery unsure which eye Family History Brother Family history of diabetes mellitus Family hx colonic polyps Son Family history of diabetes mellitus Aunt Family history of diabetes mellitus Uncle Family history of diabetes mellitus Mother Family hx of colon cancer Cancer Hypertension Sister Family hx of colon cancer Colorectal cancer Other No family history of adverse response to anesthesia Social History Smoking Status: Never smoker Tobacco Type: Cigarettes Age Started Using Tobacco: 37; Age Quit Using Tobacco: 62; packs per day: 1.5; Second Hand Exposure: No; Do You Dip or Chew Tobacco: No; Hx Alcohol Use: No Hx Substance Use: No Preferred Language: Slovenian Communication Ability: Effective Systems Administration Analyst Required: No Beliefs That Will Affect Care: None marital status: Current Living Situation: Alone current occupational status: retired How many Children do You have: 3 Feels Safe at Home: Yes Assistive Devices: Oxygen - at Night and Walker Review of Systems Review of Systems: At least ten systems reviewed and negative, except as noted in the HPI. Physical Exam Physical Exam: Please refer to Dr. Hawkins's addendum for physical examination findings. Results & Data Results & Data Vital Signs (Past 12 Hours) Vital Signs Temp Pulse Pulse Resp BP BP Pulse Ox 04/25/25 17:00 81 16 128/81 95 04/25/25 16:30 82 16 117/76 96 04/25/25 16:18 93 H 04/25/25 16:00 88 16 97 04/25/25 15:59 88 16 99/62 L 98 04/25/25 15:50 37 C 62 16 76/52 L 97 O2 Del Method 04/25/25 17:00 Room Air 04/25/25 16:30 Room Air 04/25/25 16:18 04/25/25 16:00 04/25/25 15:59 Room Air 04/25/25 15:50 Room Air Laboratory Results Short CBC 04/25/25 Range/Units 16:07 WBC 14.24 H (4.8-10.8) K/ul Hgb 13.0 (12.0-16.0) g/dL Hct 38.0 (37.0-47.0) % Plt Count 376 (130-400) K/uL BMP 04/25/25 16:07 Sodium 132 L Potassium 3.9 Chloride 96 L Carbon Dioxide 23 BUN 16 Creatinine 1.12 Glucose 112 H Calcium 8.7 Liver Function 04/25/25 Range/Units 16:07 Total Bilirubin 0.6 (0.2-1.0) mg/dl AST 57 H (13-39) U/L ALT 51 (7-52) U/L Alkaline Phosphatase 32 L (34-104) U/L Albumin 4.4 (3.4-5.0) gm/dl Diagnostic Findings Chest X-Ray 04/25/25 15:57 Chest radiograph, one view History: Vomiting Comparison: None Findings: Single AP view of the chest performed. No focal consolidation or pleural effusion. No pneumothorax. The cardiomediastinal silhouette is within normal limits. Normal pulmonary vascularity. No evidence for lymphadenopathy. No visualized bony or soft tissue abnormality. Impression: Normal chest radiograph Electronically signed by Andres Humphrey 04-25-2025 4:44 PM Abdomen/Pelvis CT 04/25/25 17:07 EXAMINATION: CT of the abdomen and pelvis performed after the administration of IV contrast TECHNIQUE: Helical CT images from the lung bases through the symphysis pubis were obtained with contrast. Coronal and sagittal reformatted images were generated at a workstation for further assessment. Dose reduction techniques were achieved by using automatic exposure control and/or adjustment of mA and/or kV according to patient size and/or use of iterative reconstruction technique. COMPARISON: 02/26/2024 HISTORY: Hematemesis FINDINGS: Lower chest: No consolidation. No pleural effusion or pneumothorax. Liver: No suspicious liver lesions. Portal veins appear patent. Scattered small hepatic cysts. Gallbladder: Cholecystectomy Spleen: Normal size. Pancreas: No suspicious pancreatic lesions. The pancreatic duct is not dilated. Adrenal glands: No adrenal nodules. Kidneys: No hydronephrosis or obstructing renal stones. Small right renal cyst. Bladder / Pelvic organs: Unremarkable. Bowel: No bowel obstruction. No abnormal bowel wall thickening. The appendix is unremarkable. Lymph nodes: No retroperitoneal, mesenteric, or pelvic lymphadenopathy. Peritoneum / Retroperitoneum: No free fluid or air within the abdomen. Vessels: No infrarenal aortic aneurysm. Bones and soft tissues: No suspicious lesion in the bones. IMPRESSION: No acute finding in the abdomen or pelvis. Electronically signed by Andres Humphrey 04-25-2025 6:00 PM Medications Administered Discontinued Medications Sodium Chloride (Nss) 1,000 mls @ 999 mls/hr IV .Q1H1M DENA Stop: 04/25/25 17:00 Last Infusion: 04/25/25 17:31 Dose: Infused Documented By: gasper Admin: 04/25/25 16:13 Dose: 999 mls/hr Documented By: gasper Famotidine (Pepcid 20mg Iv Push) 20 mg in 5 mls @ 2.5 mls/min IV NOW STA Stop: 04/25/25 15:58 Last Admin: 04/25/25 16:14 Dose: 2.5 mls/min Documented By: gasper Pantoprazole Sodium 80 mg/ (Dextrose) 120 mls @ 400 mls/hr IV NOW ONE Stop: 04/25/25 16:14 Last Infusion: 04/25/25 17:41 Dose: Infused Documented By: gasper Admin: 04/25/25 17:03 Dose: 400 mls/hr Documented By: JULES Ioversol (Optiray 320 100ml) 95 ml IV ONCE ONE Stop: 04/25/25 17:20 Last Admin: 04/25/25 17:20 Dose: 95 ml Documented By: DORIS Ondansetron HCl (Ondansetron Inj 2 Mg/Ml 2 Ml Vial) 4 mg IV NOW STA Stop: 04/25/25 15:58 Last Admin: 04/25/25 16:13 Dose: 4 mg Documented By: gasper Supervising Physician Co-Signing Physician Notes Patient is a 75-year-old female with history of COPD, CVA, peripheral vascular disease, subdural hematoma, movement disorder, spasmodic torticollis, orthostatic hypotension and other medical problems presents with history of nausea, coffee-ground emesis, abdominal pain, constipation, poor appetite which has been ongoing for many days. Patient very forgetful, poor historian. She denies any melena, blood in stools, fever, chills. She admits to have dizziness and lightheadedness and was found to be hypotensive in ED, blood pressure improved with IV fluids. Patient denies any aggravating, and relieving factors for abdominal pain and unrelated to food intake or bowel movement. She denies any NSAIDs use. Last bowel movement 3 days ago per patient. Please review HPI for complete details of presentation. I personally reviewed blood work and imaging studies. Noted leukocytosis of 14.2, hemoglobin 13, hematocrit 38, platelet count 376K, sodium 132, chloride 96, creatinine 1.12, AST 57, ALT 51, alk phos 32. Initial troponin negative. Procalcitonin 0.03. Lipase 24. Lactic acid, heart screen pending. Fecal occult negative while in ED. CT abdomen showed no acute findings. Physical Exam: Vitals signs as noted above General Appearance: Thin, frail, no apparent distress Head: normocephalic, Atraumatic Eyes: normal inspection, EOMI Neck: supple, Trachea midline Respiratory/Chest: Normal breath sounds, CTA, No accessory muscle use Cardiovascular: S1, S2, No murmur Abdomen/GI:Soft, hypogastric tender, Bowel sounds present, no guarding or rigidity Extremities/Musculoskeletal:normal inspection, no edema Neurologic/Psych:AAOX3, grossly no focal neurological deficits,+Tremor Skin: normal color, warm Nausea, vomiting, coffee-ground emesis Abdominal pain/constipation H/O IBS Dizziness/lightheadedness likely dehydration CT abdomen noncontributory Normal lipase FOBT negative in ED per ED physician Liquid diet for today IV fluids, IV Protonix GI consulted Monitor CBC Check orthostatics Resume home Linzess Chronic hyponatremia Sodium 132 Monitor I personally interviewed and examined the patient at bedside. I have reviewed the advanced practitioner's documentation on the date of service referred in note and agree with plan. Patient's care is coordinated with Chacha Polanco PA-C. Please refer to the documentation above for details of patient's presentation and for discussion of other issues. I spent a total [id number] coordinating, documenting, and providing care for this patient excluding time spent in the performance of separately billed services or time spent by another provider/QHP.
[2025-04-25] MEDS ORDERED: MoRPHine SULFATE 2 MG/ML CARP IV PRN (18:25)
[2025-04-25 18:56] LABS: Appearance Urine Clear (Clear); Bacteria Urine Automated None Seen (None Seen); Epithelial Cell Urine Auto 0-2 /hpf (0-2); Glucose Urine UA Negative (Negative); WBC Urine Automated 0-5 /hpf (0-5)
[2025-04-25] MEDS ORDERED: POLYETHYLENE (MIRALAX) 17 GM PACK PO PRN (20:52)
[2025-04-25] MEDS ORDERED: ACETAMINOPHEN 325 MG TAB PO PRN (20:52)
[2025-04-25] MEDS ORDERED: MAGNESIUM HYDROXIDE SUSP 30 ML UDC PO PRN (20:52)
[2025-04-25] MEDS ORDERED: PRIMIDONE 50 MG TAB PO SCH (21:00)
[2025-04-25] MEDS ORDERED: NON-FORMULARY MEDICATION (Food Supplemt, Lactose-Reduced [Ensure] Liquid) PO SCH (21:00)
[2025-04-25] MEDS: ONDANSETRON INJ 2 MG/ML 2 ML VIAL IV PRN (21:20)
[2025-04-25] MEDS ORDERED: PROMETHAZINE 6.25 MG/50.25 ML BAG IV PRN (22:21)
[2025-04-25] MEDS: PANTOprazole 40 MG/10 ML SYR IV SCH (22:26)
[2025-04-25] MEDS: CARBIDOPA/LEVODOPA 25/100MG TAB PO SCH (22:26)
[2025-04-25] MEDS: ZOLPIDEM TARTRATE 5 MG TAB PO SCH (22:44)
[2025-04-25] MEDS: clonazePAM 1 MG TAB PO SCH (22:45)
[2025-04-25] MEDS: PRIMIDONE 50 MG TAB PO SCH (22:45)
[2025-04-25] MEDS: lamoTRIgine 100 MG TAB PO SCH (22:45)
[2025-04-26] MEDS: LEVOTHYROXINE SODIUM 75 MCG TABLET PO SCH (05:50)
[2025-04-26 07:13] LABS: Hematocrit (blood only) 29.8 % (37.0-47.0); Hemoglobin 10.2 g/dL (12.0-16.0); Mean Corpuscular Hemoglobin 33.1 pg (25.0-34.0); Mean Corpuscular Volume 96.8 fL (80.0-100.0); Platelet Count 269 K/uL (130-400); RDW Standard Deviation 41.2 fL (36.4-46.3); Red Blood Count 3.08 M/uL (4.20-5.40); White Blood Count 6.66 K/ul (4.8-10.8)
[2025-04-26 07:31] LABS: Alanine Aminotransferase 5.0 U/L (7-52); Albumin Globulin Ratio 1.6 (0.9-2); Albumin Level 3.6 gm/dl (3.4-5.0); Alkaline Phosphatase 22.0 U/L (34-104); Anion Gap 6.0 (3-11); Bilirubin,Total 0.4 mg/dl (0.2-1.0); Blood Urea Nitrogen 10.0 mg/dl (6-23); Calcium 7.3 mg/dl (8.6-10.3); Carbon Dioxide 28.0 mmol/L (21-32); Chloride 104.0 mmol/L (98-107); Creatinine Clr Calc Pharmacy 61.8 ml/min; Globulin 2.3 gm/dl (2.5-4.0); Glucose 78.0 mg/dl (70-99(Fasting)); Magnesium 2.3 mg/dl (1.7-2.4); Potassium 3.5 mmol/L (3.5-5.1); Sodium 138.0 mmol/L (136-145); Total Protein 5.9 gm/dl (6.0-8.3)
[2025-04-26 07:54] LABS: Thyroid Stimulating Hormone 2.269 uIu/ml (0.300-4.500)
--- NOTE | 2025-04-26 09:20 | Hospitalist Progress Note ---
Date of Service April 26, 2025 Assessment & Plan (1) Nausea and vomiting: (2) Abdominal pain: (3) Coffee ground emesis: Plan Patient is a 75-year-old female with past medical history significant for mild atherosclerotic calcification of the aorta, moderate coronary artery c alcification, angiographically normal coronary arteries via diagnostic cardiac catheterization in June 2014, HLD, mild MR, chronic diastolic HF, aortic valve sclerosis/stenosis, ectopic atrial tachycardia, history of fall with symptomatic right chronic subdural hematoma in 2018 s/p particle and coil embolization of the middle meningeal artery, hypothyroidism, COPD, GERD, IBS with constipation, moderate protein calorie malnutrition, spasmodic torticollis, movement disorder, chronic anemia, chronic hyponatremia, schizoaffective disorder who presents with N/V and possible GI bleed. Patient is somewhat of a poor historian. Frequent periods of forgetfulness with variations in description of presenting illness. #N/V, coffee ground emesis Hgb 13.0 -> 10.2 No hematemesis overnight FOBT negative in ED Not meeting sepsis criteria CT abd/pelvis with no acute finding in the abdomen or pelvis GI consulted - planning for EGD today Keep NPO, IV PPI BID PRN analgesia, antiemetics #Hypotension -> resolved Was notably hypotensive with SBP in the 70s in ED triage area Likely 2/2 dehydration, improving with IVF #Movement disorder Lives alone, ambulates with walker at baseline Continue Sinemet, primidone Appreciate PT/OT evals #Schizoaffective disorder Continue home psych med regimen #Hypothyroidism Continue levothyroxine Check TSH in AM #Moderate protein calorie malnutrition Continue Ensure drinks #IBS with constipation Continue Linzess #CAD #HLD Continue statin DVT Prophylaxis: SCDs/TEDs only for now (h/o subdural hematoma) Code Status: FULL CODE PCP: López Edward MD Disposition: Admit to med/telemetry, EGD today Patient seen in collaboration with Dr. Dowell. I spent a total of 50 minutes coordinating, documenting, and providing care for this patient excluding time spent in the performance of separately billed services or time spent by another provider/QHP. Admission and Anticipated Discharge Date Admission Date: April 25, 2025 Subjective Seen and examined in 287-2. Feeling okay this AM - no nausea or vomiting ove rnight but no appetite. Lives alone and ambulates with cane. No F/C, lightheadedness, CP, SOB. States she had a month of poor appetite, dry heaving and nausea prior to presentation yesterday. Feeling better than AM than prior to arrival but generally weak. Review of Systems Review of Systems: At least ten systems reviewed and negative except as noted in the HPI. Physical Exam Physical Exam: Gen: WD/WN, NAD, resting in bed, A&Ox3, BUE tremor HEENT: Normocephalic, atraumatic, mucous membranes moist Lung: Clear to Auscultation bilaterally Heart: Regular rate Abdomen: Soft, NT, ND +BS x 4 Extremities: no edema Skin: Warm, no rash Results & Data Results & Data Vital Signs (Past 12 Hours) Vital Signs Temp Pulse Resp BP BP Pulse Ox O2 Del Method 04/26/25 07:50 36.8 C 82 16 100/58 L 94 Room Air 04/26/25 02:27 37.0 C 85 18 105/52 L 94 Room Air 04/25/25 21:56 Room Air 04/25/25 21:56 37.4 C 102 H 18 119/76 95 Room Air Laboratory Results Short CBC 04/25/25 04/26/25 Range/Units 16:07 06:31 WBC 14.24 H 6.66 (4.8-10.8) K/ul Hgb 13.0 10.2 L (12.0-16.0) g/dL Hct 38.0 29.8 L (37.0-47.0) % Plt Count 376 269 (130-400) K/uL BMP 04/25/25 04/26/25 16:07 06:31 Sodium 132 L 138 Potassium 3.9 3.5 Chloride 96 L 104 Carbon Dioxide 23 28 BUN 16 10 Creatinine 1.12 0.50 L D Glucose 112 H 78 Calcium 8.7 7.3 L Liver Function 04/25/25 04/26/25 Range/Units 16:07 06:31 Total Bilirubin 0.6 0.4 (0.2-1.0) mg/dl AST 57 H 46 H (13-39) U/L ALT 51 5 L (7-52) U/L Alkaline Phosphatase 32 L 22 L (34-104) U/L Albumin 4.4 3.6 (3.4-5.0) gm/dl Urine 04/25/25 Range/Units 18:33 Urine Color Yellow Urine Appearance Clear (Clear) Urine pH 6.5 (4.5-7.5) Ur Specific [place] 1.031 H (1.000-1.030) Urine Protein 1+ H (Negative) Urine Glucose (UA) Negative (Negative) Diagnostic Findings Chest X-Ray 04/25/25 15:57 Chest radiograph, one view History: Vomiting Comparison: None Findings: Single AP view of the chest performed. No focal consolidation or pleural effusion. No pneumothorax. The cardiomediastinal silhouette is within normal limits. Normal pulmonary vascularity. No evidence for lymphadenopathy. No visualized bony or soft tissue abnormality. Impression: Normal chest radiograph Electronically signed by Andres Humphrey 04-25-2025 4:44 PM Abdomen/Pelvis CT 04/25/25 17:07 EXAMINATION: CT of the abdomen and pelvis performed after the administration of IV contrast TECHNIQUE: Helical CT images from the lung bases through the symphysis pubis were obtained with contrast. Coronal and sagittal reformatted images were generated at a workstation for further assessment. Dose reduction techniques were achieved by using automatic exposure control and/or adjustment of mA and/or kV according to patient size and/or use of iterative reconstruction technique. COMPARISON: 02/26/2024 HISTORY: Hematemesis FINDINGS: Lower chest: No consolidation. No pleural effusion or pneumothorax. Liver: No suspicious liver lesions. Portal veins appear patent. Scattered small hepatic cysts. Gallbladder: Cholecystectomy Spleen: Normal size. Pancreas: No suspicious pancreatic lesions. The pancreatic duct is not dilated. Adrenal glands: No adrenal nodules. Kidneys: No hydronephrosis or obstructing renal stones. Small right renal cyst. Bladder / Pelvic organs: Unremarkable. Bowel: No bowel obstruction. No abnormal bowel wall thickening. The appendix is unremarkable. Lymph nodes: No retroperitoneal, mesenteric, or pelvic lymphadenopathy. Peritoneum / Retroperitoneum: No free fluid or air within the abdomen. Vessels: No infrarenal aortic aneurysm. Bones and soft tissues: No suspicious lesion in the bones. IMPRESSION: No acute finding in the abdomen or pelvis. Electronically signed by Andres Humphrey 04-25-2025 6:00 PM
--- NOTE | 2025-04-26 09:20 | Gastrointestinal Consultation ---
Date of Consultation April 26, 2025 Supervising Physician Co-Signing Physician Notes I saw and examined this patient with our nurse practitioner and agree with her assessment and plan. 4-day history of nausea and vomiting unable to eat. Last vomited yesterday. Episode of hematemesis. You to consider Maya-Adamson tear, peptic ulcer disease, gastritis less likely varices or neoplasm. Will proceed with endoscopy today. History of Present Illness Reason for Consultation: Abd pain, coffee ground emesis Requesting Physician: Ben Dowell MD Attending Physician: Ben Dowell MD History of Present Illness 75 year old female with history of movement disorder, atherosclerotic calcification of the aorta, HLD, mild MR, chronic diastolic HF, aortic valve sclerosis/stenosis, ectopic atrial tachycardia, fall w/ subdural hematoma in 2019 s/p particle and coil embolization, hypothyroidism, COPD, GERD, IBS, moderate protein calorie malnutrition, spasmodic torticollis, chronic anemia, chronic hyponatremia, schizoaffective disorder and others admitted w/ abd pain, nausea/vomiting. She is a limited historian. Tells me she has had abd pain as long as she has remembered. Always upper abdominal. Midline. Over the last week she had had worse upper abd pain and inability to tolerate any oral intake. Attempted intake results w/ dry heaving, emesis. Had an isolated episode of coffee ground emesis. No hematemesis. No fever, chills, CP, SOB. HGB 13 --> 10.2 EGD 2021: - Small hiatal hernia. - Normal esophagus. - Erythematous mucosa in the stomach. Biopsied. - Normal duodenal bulb and second portion of the duodenum. Biopsied. EGD 2020: - Small hiatal hernia. - No endoscopic esophageal abnormality to explain patient's dysphagia. Esophagus dilated. Dilated. - Normal stomach. - Normal duodenal bulb and second portion of the duodenum. - No specimens collected. Colonoscopy 2020: - The examined portion of the ileum was normal. - Non-bleeding internal hemorrhoids. - No specimens collected. Allergies Allergy/AdvReac Type Severity Reaction Status Date / Time albuterol Allergy Severe DIFFICULTY Verified 04/25/25 17:13 BREATHING/LIGHTHEADEDNESS topiramate Allergy Severe Breathing/eye Verified 04/25/25 17:13 problems adhesive Allergy Intermediate Rash, Verified 04/25/25 17:13 blisters beclomethasone [From Qvar] Allergy Intermediate Lip Verified 04/25/25 17:13 swelling doxycycline Allergy Intermediate Rash Verified 04/25/25 17:13 gabapentin Allergy Intermediate Rash/AFFECTS Verified 04/25/25 17:13 MOODS latex Allergy Intermediate RASH/BLISTE Verified 04/25/25 17:13 RS nickel Allergy Intermediate Rash Verified 04/25/25 17:13 levalbuterol AdvReac Intermediate Made Verified 04/25/25 17:13 breathing worse per pt ephedrine AdvReac Unknown Reacts Verified 04/25/25 17:13 with another med that she is no longer taking Home Medications Medication Instructions Recorded Confirmed Type coenzyme Q10 100 mg capsule 100 mg PO HS 02/05/19 04/25/25 History lamotrigine 200 mg tablet 200 mg PO HS 02/05/19 04/25/25 History primidone 50 mg tablet 100 mg PO BID 02/05/19 04/25/25 History Lactobacillus 1 cap PO QAM 02/07/19 04/25/25 History acidophilus-Bifidobac.animalis 2.5 billion cell capsule (Daily Probiotic) primidone 50 mg tablet 150 mg PO HS 03/19/19 04/25/25 History raloxifene 60 mg tablet 60 mg PO HS 03/19/19 04/25/25 History clonazepam 1 mg tablet 1 mg PO TID 05/19/19 04/25/25 History food supplemt, lactose-reduced 1 ea PO BID 01/09/20 04/25/25 History (Ensure oral liquid) triamcinolone acetonide 0.1 % 1 applic topical BID PRN Rash 01/17/20 04/25/25 History topical cream acetaminophen 500 mg tablet 1,000 mg PO TID PRN Pain 12/31/21 04/25/25 History levothyroxine 50 mcg tablet 50 mcg PO 4XWK 12/31/21 04/25/25 History dicyclomine 10 mg capsule 10 mg PO BID PRN Abdominal Pain 11/03/22 04/25/25 History famotidine 20 mg tablet 20 mg PO BID 11/03/22 04/25/25 History linaclotide 145 mcg capsule 145 mcg PO QDL 11/03/22 04/25/25 History (Linzess) rosuvastatin 20 mg tablet 20 mg PO QAM 11/03/22 04/25/25 History adapalene 0.1 % topical gel 1 applic topical HS PRN APPLY TO 04/25/25 04/25/25 History (Differin) FACE NEEDED calcium carbonate (Calcium 600) 1,200 mg PO DAILY 04/25/25 04/25/25 History camphor-methyl salicylate-menthol 1 patch topical DIRECTED PRN 04/25/25 04/25/25 History topical patch PAIN/NECK & SHOULDERS carbidopa 25 mg-levodopa 100 mg 2 tab PO TID 04/25/25 04/25/25 History tablet cholecalciferol (vitamin D3) 25 25 mcg PO DAILY 04/25/25 04/25/25 History mcg (1,000 unit) capsule (Vitamin D3) conjugated estrogens 0.625 mg/gram 500 mg vaginal 2XWK 04/25/25 04/25/25 History vaginal cream (Premarin) diclofenac sodium 1 % topical gel 2 g topical TID PRN Pain 04/25/25 04/25/25 History duloxetine 30 mg capsule,delayed 30 mg PO QAM 04/25/25 04/25/25 History release levothyroxine 50 mcg tablet 75 mcg PO 3XWK 04/25/25 04/25/25 History omeprazole 40 mg capsule,delayed 40 mg PO DAILYBB 04/25/25 04/25/25 History release paliperidone 3 mg tablet,extended 3 mg PO QAM 04/25/25 04/25/25 History release 24 hr (Invega) sucralfate 1 gram tablet 1 g PO BID PRN Heartburn 04/25/25 04/25/25 History zolpidem 10 mg tablet 10 mg PO HS 04/25/25 04/25/25 History Patient History Medical History Transaminitis Osteoporosis Orthostatic hypotension Neuropathic tremor essential tremor; follows with neurology [place] Hypothyroidism GERD (gastroesophageal reflux disease) with esophageal dysmotility Chronic obstructive pulmonary disease 2L O2 HS Seborrheic keratosis Nocturnal hypoxia COPD with nocturnal hypoxia; uses 2L O2 HS Mucocele of lip Limb pain Generalized osteoarthritis of multiple sites Depression Anxiety Actinic keratitis Constipation Liver mass PCP monitoring Diastolic heart failure follows with Dr. Corona Balance problem Poor memory History of subdural hematoma 02/2019 fall; she is s/p coil embolization of middle meningeal artery Pancreatic mass pcp monitoring; per pt "told she no longer has it" Adrenal insufficiency Lung nodule monitoring Spinal stenosis Degenerative disc disease Chronic back pain Kidney stones hx-passed on own Anemia Hearing deficit Stroke 1983, numbness of left side of face Ectopic atrial tachycardia follows Dr. Corona Thoracic aortic ectasia follows Dr. Corona Lumbar compression fracture Surgical History Hx laparoscopic cholecystectomy 11/20/22 [facility]: [place]: MAC#3, ETT#7, atraumatic DL x 1 Hx of tubal ligation History of transesophageal echocardiography (SHAYE) S/P subdural hematoma [place] [facility] [place] coil embolization of middle meningeal artery History of colonoscopy with polypectomy History of tooth extraction all upper teeth/most of lower History of tonsillectomy and adenoidectomy History of bilateral cataract extraction per pt had it done twice on both eyes Status post glaucoma surgery unsure which eye Family History Brother Family history of diabetes mellitus Family hx colonic polyps Son Family history of diabetes mellitus Aunt Family history of diabetes mellitus Uncle Family history of diabetes mellitus Mother Family hx of colon cancer Cancer Hypertension Sister Family hx of colon cancer Colorectal cancer Other No family history of adverse response to anesthesia Social History Smoking Status: Former smoker Tobacco Type: Cigarettes Age Started Using Tobacco: 37; Age Quit Using Tobacco: 62; packs per day: 1.5; Second Hand Exposure: No; Do You Dip or Chew Tobacco: No; Hx Alcohol Use: Yes Alcohol type: wine and hard liquor Alcohol Intake Frequency: Monthly or Less Hx Substance Use: No Preferred Language: Venezuelan Communication Ability: Effective Agile Coach Required: No Beliefs That Will Affect Care: None marital status: Current Living Situation: Alone current occupational status: retired How many Children do You have: 3 Other Information That Helps Us Care for You: No Feels Safe at Home: Yes Safety Concerns: Feels Safe At This Time Assistive Devices: Cane, Oxygen - at Night and Walker Review of Systems Review of Systems: All other findings negative except as noted in HPI. Physical Exam Constitutional: WD/WN, vitals as above Respiratory: normal respiratory effort Cardiovascular: Rate/Rhythm: regular rate Gastrointestinal (Abdomen): normal bowel sounds, soft, nontender, no hepatosplenomegaly Skin: no rashes, warm and dry Results & Data Vital Signs (Past 12 Hours) Vital Signs Temp Pulse Resp BP BP Pulse Ox O2 Del Method 04/26/25 07:50 98.2 F 82 16 100/58 L 94 Room Air 04/26/25 02:27 98.6 F 85 18 105/52 L 94 Room Air 04/25/25 21:56 Room Air 04/25/25 21:56 99.3 F 102 H 18 119/76 95 Room Air PG Care Time/CCT Total # of Minutes Spent Total Time Spent with Patient: Total time spent is greater than 50% in coordination of care (as documented) at patient's floor/unit and/or counseling patient: Coding Level of Care Code 82570 INT INP/OBS CARE 3/75MIN
[2025-04-26] MEDS: ADVANCED PROBIOTIC 625 MG CAPSULE PO SCH (09:27)
[2025-04-26] MEDS: PRIMIDONE 50 MG TAB PO SCH (09:27)
[2025-04-26] MEDS: ROSUVASTATIN CALCIUM 20 MG TAB PO SCH (09:28)
[2025-04-26] MEDS: PALIPERIDONE 3 MG TABCR PO SCH (09:29)
[2025-04-26] MEDS: CHOLECALCIFEROL 25 MCG (1000 UNITS) TAB PO SCH (09:29)
--- NOTE | 2025-04-26 09:43 | Electrocardiogram Report ---
Test Reason : Blood Pressure : */* mmHG Vent. Rate : 87 BPM Atrial Rate : 87 BPM P-R Int : 140 ms QRS Dur : 78 ms QT Int : 382 ms P-R-T Axes : 75 -76 65 degrees QTcB Int : 459 ms Poor data quality, interpretation may be adversely affected Normal sinus rhythm Possible Left atrial enlargement Left anterior fascicular block Cannot rule out Inferior infarct , age undetermined Abnormal ECG When compared with ECG of 09-Aug-2024 20:17, Nonspecific T wave abnormality no longer evident in Inferior leads Inverted T waves have replaced nonspecific T wave abnormality in Anterior leads Confirmed by Cornelio Hayes ([id number]) on 04/26/2025 9:43:30 AM Referred By: Confirmed By: Cornelio Hayes
--- NOTE | 2025-04-26 10:47 | Anesthesiology Consultation ---
Date of Service April 26, 2025 Assessment & Plan Chart Review Chart Review: Acceptable Risk for Surgery and Patient NOT seen in Pre Admission Testing Consults Requested none ASA ASA4 Proposed Anesthesia Anesthesia Type: MAC History Surgery Operation Date: 04/26/25 17:00 Proposed Procedures p Esophagogastroduodenoscopy Dr. Jean Marie Aj MD Height/Weight Height: 5 ft Weight: 40.9 kg Allergies Allergy/AdvReac Type Severity Reaction Status Date / Time albuterol Allergy Severe DIFFICULTY Verified 04/25/25 17:13 BREATHING/LIGHTHEADEDNESS topiramate Allergy Severe Breathing/eye Verified 04/25/25 17:13 problems adhesive Allergy Intermediate Rash, Verified 04/25/25 17:13 blisters beclomethasone [From Qvar] Allergy Intermediate Lip Verified 04/25/25 17:13 swelling doxycycline Allergy Intermediate Rash Verified 04/25/25 17:13 gabapentin Allergy Intermediate Rash/AFFECTS Verified 04/25/25 17:13 MOODS latex Allergy Intermediate RASH/BLISTE Verified 04/25/25 17:13 RS nickel Allergy Intermediate Rash Verified 04/25/25 17:13 levalbuterol AdvReac Intermediate Made Verified 04/25/25 17:13 breathing worse per pt ephedrine AdvReac Unknown Reacts Verified 04/25/25 17:13 with another med that she is no longer taking cheese AdvReac Hypertensio Verified 04/25/25 19:25 n Medications Home Medications Medication Instructions Recorded Confirmed Last Taken coenzyme Q10 100 mg capsule 100 mg PO HS 02/05/19 04/25/25 04/24/25 lamotrigine 200 mg tablet 200 mg PO HS 02/05/19 04/25/25 04/24/25 primidone 50 mg tablet 100 mg PO BID 02/05/19 04/25/25 04/24/25 Lactobacillus 1 cap PO QAM 02/07/19 04/25/25 04/24/25 acidophilus-Bifidobac.animalis 2.5 billion cell capsule (Daily Probiotic) primidone 50 mg tablet 150 mg PO HS 03/19/19 04/25/25 04/24/25 raloxifene 60 mg tablet 60 mg PO HS 03/19/19 04/25/25 04/24/25 clonazepam 1 mg tablet 1 mg PO TID 05/19/19 04/25/25 04/24/25 food supplemt, lactose-reduced 1 ea PO BID 01/09/20 04/25/25 04/24/25 (Ensure oral liquid) triamcinolone acetonide 0.1 % 1 applic topical BID PRN Rash 01/17/20 04/25/25 01/06/22 22:00 topical cream acetaminophen 500 mg tablet 1,000 mg PO TID PRN Pain 12/31/21 04/25/25 04/27/23 levothyroxine 50 mcg tablet 50 mcg PO 4XWK 12/31/21 04/25/25 04/25/25 dicyclomine 10 mg capsule 10 mg PO BID PRN Abdominal Pain 11/03/22 04/25/25 04/28/23 21:30 famotidine 20 mg tablet 20 mg PO BID 11/03/22 04/25/25 04/24/25 linaclotide 145 mcg capsule 145 mcg PO QDL 11/03/22 04/25/25 04/24/25 (Linzess) rosuvastatin 20 mg tablet 20 mg PO QAM 11/03/22 04/25/25 04/24/25 adapalene 0.1 % topical gel 1 applic topical HS PRN APPLY TO 04/25/25 04/25/25 Unknown (Differin) FACE NEEDED calcium carbonate (Calcium 600) 1,200 mg PO DAILY 04/25/25 04/25/25 04/24/25 camphor-methyl salicylate-menthol 1 patch topical DIRECTED PRN 04/25/25 04/25/25 Unknown topical patch PAIN/NECK & SHOULDERS carbidopa 25 mg-levodopa 100 mg 2 tab PO TID 04/25/25 04/25/25 04/24/25 tablet cholecalciferol (vitamin D3) 25 25 mcg PO DAILY 04/25/25 04/25/25 04/24/25 mcg (1,000 unit) capsule (Vitamin D3) conjugated estrogens 0.625 mg/gram 500 mg vaginal 2XWK 04/25/25 04/25/25 Unknown vaginal cream (Premarin) diclofenac sodium 1 % topical gel 2 g topical TID PRN Pain 04/25/25 04/25/25 Unknown duloxetine 30 mg capsule,delayed 30 mg PO QAM 04/25/25 04/25/25 04/24/25 release levothyroxine 50 mcg tablet 75 mcg PO 3XWK 04/25/25 04/25/25 04/24/25 omeprazole 40 mg capsule,delayed 40 mg PO DAILYBB 04/25/25 04/25/25 04/24/25 release paliperidone 3 mg tablet,extended 3 mg PO QAM 04/25/25 04/25/25 04/24/25 release 24 hr (Invega) sucralfate 1 gram tablet 1 g PO BID PRN Heartburn 04/25/25 04/25/25 Unknown zolpidem 10 mg tablet 10 mg PO HS 04/25/25 04/25/25 04/24/25 Active Medications Generic Name Dose Route Start Last Admin Trade Name Freq PRN Reason Stop Dose Admin Carbidopa/Levodopa 2 tab 04/25/25 21:00 04/26/25 09:29 Carbidopa/Levodopa 25/100mg Tab PO 05/25/25 20:59 2 tab TID DENA Administration Clonazepam 1 mg 04/25/25 21:00 04/26/25 09:29 Clonazepam 1 Mg Tab PO 05/25/25 20:59 1 mg TID DENA Administration Duloxetine HCl 30 mg 04/26/25 09:00 04/26/25 09:26 Duloxetine Hcl 30 Mg Cap PO 05/26/25 08:59 30 mg QAM DENA Administration Sodium Chloride 1,000 mls @ 80 mls/hr 04/25/25 18:30 04/26/25 10:40 Nss IV 04/28/25 18:29 80 mls/hr .[id number] DENA Administration Pantoprazole Sodium 40 mg in 10 mls @ 5 mls/min 04/25/25 21:00 04/26/25 10:40 Protonix IV 05/25/25 20:59 5 mls/min BID DENA Administration Lactobacillus Acidophilus 1,250 mg 04/26/25 09:00 04/26/25 09:27 Advanced Probiotic 625 Mg Capsule PO 05/26/25 08:59 1,250 mg QAM DENA Administration Lamotrigine 200 mg 04/25/25 21:00 04/25/25 22:45 Lamotrigine 100 Mg Tab PO 05/25/25 20:59 200 mg HS DENA Administration Protocol Levothyroxine Sodium 75 mcg 04/26/25 06:30 04/26/25 05:50 Levothyroxine Sodium 75 Mcg Tablet PO 05/26/25 06:29 75 mcg [id number] DENA Administration Ondansetron HCl 4 mg 04/25/25 20:52 04/25/25 21:20 Ondansetron Inj 2 Mg/Ml 2 Ml Vial IV 05/25/25 20:51 4 mg Q6H PRN Administration Nausea Paliperidone 3 mg 04/26/25 09:00 04/26/25 09:29 Paliperidone 3 Mg Tabcr PO 05/26/25 08:59 3 mg QAM DENA Administration Primidone 150 mg 04/25/25 21:00 04/25/25 22:45 Primidone 50 Mg Tab PO 05/25/25 20:59 150 mg HS DENA Administration Primidone 100 mg 04/26/25 09:00 04/26/25 09:27 Primidone 50 Mg Tab PO 05/25/25 20:59 100 mg BID@0900,1200 DENA Administration Rosuvastatin Calcium 20 mg 04/26/25 09:00 04/26/25 09:28 Rosuvastatin Calcium 20 Mg Tab PO 05/26/25 08:59 20 mg QAM DENA Administration Vitamin D 25 mcg 04/26/25 09:00 04/26/25 09:29 Cholecalciferol 25 Mcg (1000 Units) Tab PO 05/26/25 08:59 25 mcg DAILY DENA Administration Zolpidem Tartrate 10 mg 04/25/25 21:00 04/25/25 22:44 Zolpidem Tartrate 5 Mg Tab PO 05/25/25 20:59 10 mg HS DENA Administration Past Medical History Medical History Transaminitis Osteoporosis Orthostatic hypotension Neuropathic tremor essential tremor; follows with neurology [place] Hypothyroidism GERD (gastroesophageal reflux disease) with esophageal dysmotility Chronic obstructive pulmonary disease 2L O2 HS Seborrheic keratosis Nocturnal hypoxia COPD with nocturnal hypoxia; uses 2L O2 HS Mucocele of lip Limb pain Generalized osteoarthritis of multiple sites Depression Anxiety Actinic keratitis Constipation Liver mass PCP monitoring Diastolic heart failure follows with Dr. Corona Balance problem Poor memory History of subdural hematoma 02/2019 fall; she is s/p coil embolization of middle meningeal artery Pancreatic mass pcp monitoring; per pt "told she no longer has it" Adrenal insufficiency Lung nodule monitoring Spinal stenosis Degenerative disc disease Chronic back pain Kidney stones hx-passed on own Anemia Hearing deficit Stroke 1983, numbness of left side of face Ectopic atrial tachycardia follows Dr. Corona Thoracic aortic ectasia follows Dr. Corona Lumbar compression fracture Exercise / Class Metabolic Activity II 4-5 Yardwork/Stairs/Walk up hill Past Family History Family History Brother Family history of diabetes mellitus Family hx colonic polyps Son Family history of diabetes mellitus Aunt Family history of diabetes mellitus Uncle Family history of diabetes mellitus Mother Family hx of colon cancer Cancer Hypertension Sister Family hx of colon cancer Colorectal cancer Other No family history of adverse response to anesthesia Past Surgical History Surgical History Hx laparoscopic cholecystectomy 11/20/22 [facility]: [place]: MAC#3, ETT#7, atraumatic DL x 1 Hx of tubal ligation History of transesophageal echocardiography (SHAYE) [place] [facility] [place] coil embolization of middle meningeal artery History of colonoscopy with polypectomy History of tooth extraction all upper teeth/most of lower History of tonsillectomy and adenoidectomy History of bilateral cataract extraction per pt had it done twice on both eyes Status post glaucoma surgery unsure which eye Past Anesthesia History No Hx of Anesthesia Complications and No Family Hx of Anesthesia Complications History of PONV No Hx of PONV and No Hx of Motion Sickness Social History Smoking Status: Former smoker tobacco type: cigarettes and e-cigarettes Do You Dip or Chew Tobacco: No Hx Alcohol Use: Yes Alcohol type: wine and hard liquor alcohol intake frequency: holidays/special occasions only Hx Substance Use: No substance use type: does not use Physical Exam Vital Signs Last Vital Signs Temp 36.8 C 04/26/25 07:50 Pulse 82 04/26/25 07:50 Resp 16 04/26/25 07:50 BP 100/58 L 04/26/25 07:50 Pulse Ox 94 04/26/25 07:50 O2 Del Method Room Air 04/26/25 07:50 Testing Laboratory Results 04/26/25 06:31 04/26/25 06:31 PT 11.6 Seconds (9.0-12.0) 04/25/25 16:07 INR 1.1 (0.9-1.1) 04/25/25 16:07 APTT 24 Seconds (21-31) 04/25/25 16:07 Urine Color Yellow 04/25/25 18:33 Urine Appearance Clear (Clear) 04/25/25 18:33 Urine pH 6.5 (4.5-7.5) 04/25/25 18:33 Ur Specific Sentinel 1.031 (1.000-1.030) H 04/25/25 18:33 Urine Protein 1+ (Negative) H 04/25/25 18:33 Urine Glucose (UA) Negative (Negative) 04/25/25 18: Urine Ketones 1+ (Negative) H 04/25/25 18:33 Urine Nitrite Negative (Negative) 04/25/25 18:33 Ur Leukocyte Esterase Negative (Negative) 04/25/25 18:33 Urine WBC (Auto) 0-5 /hpf (0-5) 04/25/25 18:33 Urine RBC (Auto) 3-5 /hpf (0-2) H 04/25/25 18:33 U Hyaline Cast (Auto) 3-5 /lpf (0-2) H 04/25/25 18:33 U Epithel Cells (Auto) 0-2 /hpf (0-2) 04/25/25 18:33 Urine Bacteria (Auto) None Seen (None Seen) 04/25/25 18:33 Blood Type A Positive 04/25/25 16:07 Antibody Screen NEGATIVE 04/25/25 16:07 Electrocardiogram Date: 04/25/25 Findings: + NSR @ (@ 87;LAFB) Chest X-Ray Date: 04/25/25 Findings: + NAD Echocardiogram Date: 02/26/24 EF: 55% LV Function: normal RWMA: + none Valvular Disease: + no significant valvular disease
[2025-04-26] MEDS: LINACLOTIDE 145 MCG CAPSULE PO SCH (11:42)
[2025-04-26] MEDS ORDERED: ATROPINE SULFATE 0.1 MG/ML 10ML SYR IV PRN (14:44)
--- NOTE | 2025-04-26 15:06 | GI REPORT ---
[facility] Patient: CARA ARAGON : 1950 Sex at : Female Age: 75 Years Procedure: Upper GI endoscopy Date: 04/26/2025 Attending Physician: Vaughn Aj MD Referring MD: Ben Dowell Md Indications: - Hematemesis - Nausea and vomiting Medications: - Monitored Anesthesia Care Complications: - No immediate complications. Procedure: - Prior to the procedure, a History and Physical was performed, and patient medications and allergies were reviewed. The patient's tolerance of previous anesthesia was also reviewed. The risks and benefits of the procedure and the sedation options and risks were discussed with the patient. All questions were answered, and informed consent was obtained. [Anticoagulant Agents] [Days Prior to Procedure]. [ASA Grade]. After reviewing the risks and benefits, the patient was deemed in satisfactory condition to undergo the procedure. - The egd scope was introduced through the mouth and advanced to the second part of the duodenum. - The upper GI endoscopy was accomplished without difficulty. - The patient tolerated the procedure well. Findings: - The examined esophagus was normal. - Diffuse moderate inflammation characterized by erythema, congestion (edema), erosions and friability was found in the gastric antrum and in the gastric body. Biopsies were taken with a cold forceps for Helicobacter pylori testing. - A small hiatal hernia was present. - The examined duodenum was normal. Impression: - Normal esophagus. - Acute gastritis, characterized by erythema, congestion (edema), erosions and friability. Biopsied. - Small hiatal hernia. - Normal examined duodenum. Recommendation: - Resume previous diet. - Patient has a contact number available for emergencies. The signs and symptoms of potential delayed complications were discussed with the patient. Return to normal activities tomorrow. Written discharge instructions were provided to the patient. Procedure Code(s): - 64240, Esophagogastroduodenoscopy, flexible, transoral; with biopsy, single or multiple Diagnosis Code(s): - K92.0, Hematemesis - K29.00, Acute gastritis without bleeding - K44.9, Diaphragmatic hernia without obstruction or gangrene CPT(R) - 202 copyright [employer]. All Rights Reserved. The CPT codes, CCI edits and ICD codes generated are intended as suggestions and were generated based on input data. These codes are preliminary and upon corporate manager review may be revised to meet current compliance and payer requirements. The provider is responsible for the final determination of appropriate codes, and modifiers. Vaughn Aj MD This document has been electronically signed. Note Initiated:04/26/2025 Note Completed:04/26/2025 3:05 PM [id number]
[2025-04-26] MEDS: LIDOCAINE 2% 2 ML VIAL/AMP(20MG/ML) INFIL ONE (16:28)
[2025-04-26] MEDS: PROPOFOL IV EMULSION 10 MG/ML 20 ML VIAL IV ONE (16:28)
[2025-04-26] MEDS: ONDANSETRON INJ 2 MG/ML 2 ML VIAL ONE (16:28)
--- NOTE | 2025-04-26 16:44 | Anesthesiology Progress Note ---
Date of Service April 26, 2025 Anesthesia Post Procedure Vital Signs Vital Signs: Temp Pulse Pulse Pulse Resp BP BP 04/26/25 15:58 36.6 C 68 16 107/66 04/26/25 15:26 74 15 98/58 L 04/26/25 15:11 73 14 106/68 04/26/25 14:40 36.3 C L 70 16 112/61 04/26/25 14:37 75 04/26/25 12:04 36.4 C L 72 16 102/62 04/26/25 08:00 74 04/26/25 07:50 36.8 C 82 16 100/58 L 04/26/25 02:27 37.0 C 85 18 105/52 L 04/25/25 21:56 04/25/25 21:56 37.4 C 102 H 18 119/76 04/25/25 21:01 77 04/25/25 19:00 85 14 124/69 04/25/25 17:00 81 16 128/81 Pulse Ox O2 Del Method 04/26/25 15:58 95 Room Air 04/26/25 15:26 97 Room Air 04/26/25 15:11 98 Room Air 04/26/25 14:40 94 Room Air 04/26/25 14:37 04/26/25 12:04 95 Room Air 04/26/25 08:00 04/26/25 07:50 94 Room Air 04/26/25 02:27 94 Room Air 04/25/25 21:56 Room Air 04/25/25 21:56 95 Room Air 04/25/25 21:01 04/25/25 19:00 96 Room Air 04/25/25 17:00 95 Room Air Pain Intensity Bilateral Sacrum: Pain Intensity: 8 Transfer of Care Handoff Completed per policy Notes Mental Status: alert / awake / arousable and participated in evaluation Patient Amnestic to Procedure: Yes Nausea / Vomiting: adequately controlled Pain: adequately controlled Airway Patency, RR, SpO2: stable & adequate BP & HR: stable & adequate Hydration State: stable & adequate Anesthetic Complications: no major complications apparent and Pt Satisfied with anesthetic care
[2025-04-27] MEDS: LEVOTHYROXINE SODIUM 50 MCG TABLET PO SCH (05:54)
[2025-04-27 06:41] LABS: Hematocrit (blood only) 31.0 % (37.0-47.0); Hemoglobin 10.5 g/dL (12.0-16.0); Mean Corpuscular Hemoglobin 32.5 pg (25.0-34.0); Mean Corpuscular Volume 96.0 fL (80.0-100.0); Platelet Count 200 K/uL (130-400); RDW Standard Deviation 40.3 fL (36.4-46.3); Red Blood Count 3.23 M/uL (4.20-5.40); White Blood Count 7.71 K/ul (4.8-10.8)
[2025-04-27 07:26] LABS: Alanine Aminotransferase 6.0 U/L (7-52); Albumin Globulin Ratio 1.5 (0.9-2); Albumin Level 3.3 gm/dl (3.4-5.0); Alkaline Phosphatase 22.0 U/L (34-104); Anion Gap 8.0 (3-11); Bilirubin,Total 0.3 mg/dl (0.2-1.0); Blood Urea Nitrogen 4.0 mg/dl (6-23); Calcium 6.9 mg/dl (8.6-10.3); Carbon Dioxide 27.0 mmol/L (21-32); Chloride 101.0 mmol/L (98-107); Creatinine Clr Calc Pharmacy 74.6 ml/min; Globulin 2.2 gm/dl (2.5-4.0); Glucose 69.0 mg/dl (70-99(Fasting)); Potassium 3.2 mmol/L (3.5-5.1); Sodium 136.0 mmol/L (136-145); Total Protein 5.5 gm/dl (6.0-8.3)
[2025-04-27 07:37] VITALS: TEMP 98.2
[2025-04-27 11:12] VITALS: BP 101/66; RESP 18; O2SAT 94
[2025-04-27] MEDS: POTASSIUM CHLORIDE CRTAB 20 MEQ TABCR PO STA (11:24)
[2025-04-27] MEDS: CALCIUM GLUCONATE 1,000 MG/60 ML BAG IV STA ×2 (11:24→11:46)
--- NOTE | 2025-04-27 11:28 | Discharge Summary ---
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 #N/V, coffee ground emesis Hgb 13.0 -> 10.2 -->10.5 on day of discharge No hematemesis overnight FOBT negative in ED CT abd/pelvis with no acute finding in the abdomen or pelvis GI consulted and underwent EGD EGD + Gastritis, pathology pending for h.pylori tolerating diet on day of discharge, continue oral PPI #Hypokalemia K 3.2 on day of discharge, will replace with 40meq KCL x 1 recommend BMP at PCP follow up #Hypocalcemia Ca 6.9, corrected 7.5 will give 2g calc gluconate before discharge magnesium levels normal will need PTH and vitamin D levels checked at PCP follow up #Hypotension -> resolved Was notably hypotensive with SBP in the 70s in ED triage area Likely 2/2 dehydration, improving with IVF #Movement disorder Lives alone, ambulates with walker at baseline Continue Sinemet, primidone #Schizoaffective disorder Continue home psych med regimen #Hypothyroidism Continue levothyroxine Check TSH in AM #Moderate protein calorie malnutrition Continue Ensure drinks #IBS with constipation Continue Linzess #CAD #HLD Continue statin DVT Prophylaxis: SCDs/TEDs only for now (h/o subdural hematoma) Code Status: FULL CODE PCP: López Edward MD Disposition: Admit to med/telemetry, EGD today Patient seen in collaboration with Dr. Dowell. I spent a total of 50 minutes coordinating, documenting, and providing care for this patient excluding time spent in the performance of separately billed services or time spent by another provider/QHP. Notes For Next Care Provider Please check CBC, Anemia panel, Vitamin D level, PTH, CMP. Pt with low potassium, low calcium during stay. Hgb also low at 10.5. possibly dilutional from fluids. EGD w/o bleeding. Medication Changes From Visit Please continue your current medication regimen. Please ensure you are taking Omeprazole 40mg daily. This helps reduce stomach acid in your stomach. Please ensure you are taking Calcium carbonate 600mg, 2 tablets daily. Your calcium was low this admission. It is recommended you drink Ensure protein drinks twice daily to improve your protein intake. Admission HPI Per Admitting Provider Patient is a 75-year-old female with past medical history significant for mild atherosclerotic calcification of the aorta, moderate coronary artery calcifica tion, angiographically normal coronary arteries via diagnostic cardiac catheterization in June 2014, HLD, mild MR, chronic diastolic HF, aortic valve sclerosis/stenosis, ectopic atrial tachycardia, history of fall with symptomatic right chronic subdural hematoma in 2018 s/p particle and coil embolization of the middle meningeal artery, hypothyroidism, COPD, GERD, IBS with constipation, moderate protein calorie malnutrition, spasmodic torticollis, movement disorder, chronic anemia, chronic hyponatremia, schizoaffective disorder and past tobacco use who presented to the ED with c/o poor oral intake due to N/V. Patient is somewhat of a poor historian, frequent periods of forgetfulness with variations in description of presenting illness. Patient seen in ED with Dr. Hawkins. Reports crampy abdominal pain, mostly generalized, for the past month or so. Waxes and wanes. Became more persistent beginning yesterday. Started vomiting yesterday. Describes emesis appearance that resembled coffee grounds; no connor blood seen in vomitus. Has not eaten for about 3 days. No BM in about 3 or 4 days. Normally moves bowels every day or every other day. Recall his last BM was formed, denies any hematochezia or melena. Was having some constipation prior to her last BM. Reports notable lightheadedness and dizziness that started today. No falls or trauma. No reported syncope. Lives by herself. Has a son that lives approximately 20 minutes away; he is who brought her to the ED. Has not been compliant with home oxygen use, reports using oxygen only at night - unsure of how many liters. Denies any recent anti-inflammatory use. FOBT negative in ED. Was extremely hypotensive in triage however this improved drastically s/p IVF. Admission Exam Per Admitting Provider Physical Exam: Vitals signs as noted above General Appearance: Thin, frail, no apparent distress Head: normocephalic, Atraumatic Eyes: normal inspection, EOMI Neck: supple, Trachea midline Respiratory/Chest: Normal breath sounds, CTA, No accessory muscle use Cardiovascular: S1, S2, No murmur Abdomen/GI:Soft, hypogastric tender, Bowel sounds present, no guarding or rigidity Extremities/Musculoskeletal:normal inspection, no edema Neurologic/Psych:AAOX3, grossly no focal neurological deficits,+Tremor Skin: normal color, warm Discharge Exam Gen: thin, F, fraile/malnourshished, tremulous in upper ext, NAD, A&O x3 HEENT: Normocephalic, atraumatic, conjunctivae moist, sclerae anicteric, mucous membranes moist. Lung: Clear to Auscultation bilaterally, no wheezes/rales/rhonchi Heart: Regular rate, regular rhythm, no murmurs, rubs, or gallops Abdomen: Soft, NT, ND +BS x 4 Extremities: No edema Skin: Warm, no rash, negative turgor. Updated Medication List Medication Instructions Recorded Confirmed Type coenzyme Q10 100 mg capsule 100 mg PO HS 02/05/19 04/25/25 History lamotrigine 200 mg tablet 200 mg PO HS 02/05/19 04/25/25 History primidone 50 mg tablet 100 mg PO BID 02/05/19 04/25/25 History Lactobacillus 1 cap PO QAM 02/07/19 04/25/25 History acidophilus-Bifidobac.animalis 2.5 billion cell capsule (Daily Probiotic) primidone 50 mg tablet 150 mg PO HS 03/19/19 04/25/25 History raloxifene 60 mg tablet 60 mg PO HS 03/19/19 04/25/25 History clonazepam 1 mg tablet 1 mg PO TID 05/19/19 04/25/25 History food supplemt, lactose-reduced 1 ea PO BID 01/09/20 04/25/25 History (Ensure oral liquid) triamcinolone acetonide 0.1 % 1 applic topical BID PRN Rash 01/17/20 04/25/25 History topical cream acetaminophen 500 mg tablet 1,000 mg PO TID PRN Pain 12/31/21 04/25/25 History levothyroxine 50 mcg tablet 50 mcg PO 4XWK 12/31/21 04/25/25 History dicyclomine 10 mg capsule 10 mg PO BID PRN Abdominal Pain 11/03/22 04/25/25 History famotidine 20 mg tablet 20 mg PO BID 11/03/22 04/25/25 History linaclotide 145 mcg capsule 145 mcg PO QDL 11/03/22 04/25/25 History (Linzess) rosuvastatin 20 mg tablet 20 mg PO QAM 11/03/22 04/25/25 History adapalene 0.1 % topical gel 1 applic topical HS PRN APPLY TO 04/25/25 04/25/25 History (Differin) FACE NEEDED calcium carbonate (Calcium 600) 1,200 mg PO DAILY 04/25/25 04/25/25 History camphor-methyl salicylate-menthol 1 patch topical DIRECTED PRN 04/25/25 04/25/25 History topical patch PAIN/NECK & SHOULDERS carbidopa 25 mg-levodopa 100 mg 2 tab PO TID 04/25/25 04/25/25 History tablet cholecalciferol (vitamin D3) 25 25 mcg PO DAILY 04/25/25 04/25/25 History mcg (1,000 unit) capsule (Vitamin D3) conjugated estrogens 0.625 mg/gram 500 mg vaginal 2XWK 04/25/25 04/25/25 History vaginal cream (Premarin) diclofenac sodium 1 % topical gel 2 g topical TID PRN Pain 04/25/25 04/25/25 History duloxetine 30 mg capsule,delayed 30 mg PO QAM 04/25/25 04/25/25 History release levothyroxine 50 mcg tablet 75 mcg PO 3XWK 04/25/25 04/25/25 History omeprazole 40 mg capsule,delayed 40 mg PO DAILYBB 04/25/25 04/25/25 History release paliperidone 3 mg tablet,extended 3 mg PO QAM 04/25/25 04/25/25 History release 24 hr (Invega) sucralfate 1 gram tablet 1 g PO BID PRN Heartburn 04/25/25 04/25/25 History zolpidem 10 mg tablet 10 mg PO HS 04/25/25 04/25/25 History Hospital Stay Data Consultations 04/25/25 18:18 ED Decision to Admit Stat 04/25/25 20:52 Consult Gastroenterology Routine Procedures Performed Operation Date: 04/26/25 17:00 Actual Procedures p EGD Biopsy Cytology - Vaughn Aj MD Findings: - The examined esophagus was normal. - Diffuse moderate inflammation characterized by erythema, congestion (edema), erosions and friability was found in the gastric antrum and in the gastric body. Biopsies were taken with a cold forceps for Helicobacter pylori testing. - A small hiatal hernia was present. - The examined duodenum was normal. Impression: - Normal esophagus. - Acute gastritis, characterized by erythema, congestion (edema), erosions and friability. Biopsied. - Small hiatal hernia. - Normal examined duodenum. Recommendation: - Resume previous diet. - Patient has a contact number available for emergencies. The signs and symptoms of potential delayed complications were discussed with the patient. Return to normal activities tomorrow. Written discharge instructions were provided to the patient. Diagnostic Imagining Performed Chest X-Ray 04/25/25 15:57 Chest radiograph, one view History: Vomiting Comparison: None Findings: Single AP view of the chest performed. No focal consolidation or pleural effusion. No pneumothorax. The cardiomediastinal silhouette is within normal limits. Normal pulmonary vascularity. No evidence for lymphadenopathy. No visualized bony or soft tissue abnormality. Impression: Normal chest radiograph Electronically signed by Andres Humphrey 04-25-2025 4:44 PM Abdomen/Pelvis CT 04/25/25 17:07 EXAMINATION: CT of the abdomen and pelvis performed after the administration of IV contrast TECHNIQUE: Helical CT images from the lung bases through the symphysis pubis were obtained with contrast. Coronal and sagittal reformatted images were generated at a workstation for further assessment. Dose reduction techniques were achieved by using automatic exposure control and/or adjustment of mA and/or kV according to patient size and/or use of iterative reconstruction technique. COMPARISON: 02/26/2024 HISTORY: Hematemesis FINDINGS: Lower chest: No consolidation. No pleural effusion or pneumothorax. Liver: No suspicious liver lesions. Portal veins appear patent. Scattered small hepatic cysts. Gallbladder: Cholecystectomy Spleen: Normal size. Pancreas: No suspicious pancreatic lesions. The pancreatic duct is not dilated. Adrenal glands: No adrenal nodules. Kidneys: No hydronephrosis or obstructing renal stones. Small right renal cyst. Bladder / Pelvic organs: Unremarkable. Bowel: No bowel obstruction. No abnormal bowel wall thickening. The appendix is unremarkable. Lymph nodes: No retroperitoneal, mesenteric, or pelvic lymphadenopathy. Peritoneum / Retroperitoneum: No free fluid or air within the abdomen. Vessels: No infrarenal aortic aneurysm. Bones and soft tissues: No suspicious lesion in the bones. IMPRESSION: No acute finding in the abdomen or pelvis. Electronically signed by Andres Humphrey 04-25-2025 6:00 PM Pending Results Patient Have Any Pending Studies at Discharge: Yes (Pathology from EGD pending) Discharge Instructions Given to Patient (Per Discharging Provider) MEDICATION CHANGES: Please continue your current medication regimen. Please ensure you are taking Omeprazole 40mg daily. This helps reduce stomach acid in your stomach. Please ensure you are taking Calcium carbonate 600mg, 2 tablets daily. Your calcium was low this admission. It is recommended you drink Ensure protein drinks twice daily to improve your protein intake. SUMMARY OF TEST RESULTS: You were admitted to the hospital secondary to nausea, vomiting and coffee- ground emesis. You underwent an endoscopy study which showed that you had a condition called gastritis, which is inflammation of your stomach lining. There was no signs of GI bleeding or ulceration. Your blood count, hemoglobin, remained stable during your hospital stay. It was 10.5 at discharge. Your calcium and potassium was low during your hospital stay. This was replaced. PENDING TEST RESULTS: Pathology results of your EGD is pending. RECOMMENDATIONS FOR FOLLOW-UP: Please follow up with your primary care provider as scheduled. Please have your primary care provider check lab work at your appointment including CBC, Anemia Panel, vitamin D and CMP. This will monitor your blood counts, potassium and calcium levels. Please continue to eat as tolerated. If you have any further bleeding please return to the ED. OTHER INSTRUCTIONS: Seek medical attention if you have: * temperature above 101 * chest pain or trouble breathing * abdominal pain, nausea, vomiting * diarrhea, dark stools or bloody stools * any unanswered questions or concerns Call 911 if symptoms are severe. Please take good care of yourself. It has been a pleasure taking care of you. Please take care of yourself. If you have any questions regarding your recent hospitalization please contact [facility] and request Jv Sol @ [phone]. Total Time Total Time Spent Total Time Spent (In Minutes): 50 minutes Supervising Physician Co-Signing Physician Notes Patient seen and examined at bedside. She reports that she is feeling much better. She denies any nausea or vomiting today. She is tolerating diet well. Plan to discharge her on Protonix with follow-up with PCP I have reviewed the advanced practitioner's documentation, and I agree with, and take responsibility for the plan of care I spent a total of 30 minutes coordinating, documenting, and providing care for this patient excluding time spent in the performance of separately billed services. All of the aforementioned completed while collaborating with the assigned advanced practitioner for a full treatment plan
[2025-04-27 11:50] VITALS: PULSE 85
== END 2025-04-27 14:32 | disposition home or self-care (01) ==
LOC: ED 15:46 → 2N 15:46 → SUATTDRO 18:24 → 2N 20:13